=== PATIENT | male | born 1935 | race Caucasian/White ===

== ENCOUNTER 2016-07-06 12:03 | Inpatient (IN) | payer MEDICARE ==
[~2016-07-06] VITALS: Ht 177.8 cm; Wt 81.6 kg
[~2016-07-06 12:03] MED LIST: BAZACRE TD; CIPR-9 PO; CULT10CA4 PO; CYCL1TAB29 PO; DULC10SU3 RECTAL; FERR325T PO; FLEEENE3 RECTAL; LACT10SO PO; LEVEMIR SQ; LINA145C PO; LISI2.5T3 PO; MAGN1TAB14 PO; METO25TA3 PO; MILKSUS PO; NORC5TAB PO; PROS5TAB PO; SITA50 PO; SULF1TAB23 PO; TAMS5CAP PO; VENL75TA PO; ZANT150T2 PO; ZOCO10TA PO
[2016-07-06 12:07] VITALS: BP 139/75; PULSE 120; RESP 20; TEMP 97.6; O2SAT 98
--- NOTE | 2016-07-06 12:30 | PD ---
Physical Exam Time Seen by Provider: 12:25 Narrative 81 year old male presents to ED for evaluation of "not feeling right." reports he has been having decreased appetite and nausea and vomiting. He has been disoriented today and thought he was in [place] this morning. Reports a color change and consistency to his urine and she is concerned because he has already 2 UTIs this year.. Pt has indwelling guevara catheter for 6 months. Pt has pain around his belt line with coughing. No definite fever. Pt has history of diabetes. Data Data Last Documented VS Vital Signs Date Time Temp Pulse Resp B/P Pulse Ox O2 Delivery O2 Flow Rate FiO2 07/06/16 12:07 97.6 120 20 139/75 98 MDM Medical Record Reviewed: Yes Supervised Visit with MARILEE: No Narrative Course 81 year old female presents to the ED for evaluation. Appears without distress. Is tachycardic in triage; afebrile. Pt will be moved to a medical bed when one becomes available. Condition: Stable Tia Jones Jul 06, 2016 12:30
[2016-07-06] MEDS ORDERED: SODIUM CHLORIDE 0.9% FLUSH 10 ML FLUSH IVF PRN (14:00)
[2016-07-06 14:26] VITALS: RESP 20; O2SAT 100
[2016-07-06] MEDS ORDERED: METF1000 PO (14:31)
[2016-07-06] MEDS ORDERED: VENL75TA2 PO (14:31)
[2016-07-06] MEDS ORDERED: GLIM1TAB PO (14:31)
[2016-07-06] MEDS ORDERED: SILV1CRE20 TOPICAL (14:34)
--- NOTE | 2016-07-06 15:44 | PD ---
HPI Chief Complaint: Altered Mental Status Time Seen by Provider: 13:59 Travel History International Travel<30 days: No Contact w/Intl Traveler<30days: No Traveled to known affect area: No History of Present Illness HPI Send 81-year-old man who presents to the emergency department complaining of feeling poorly, with nausea and vomiting. He states he first started feeling bad couple days ago when he began feeling weak, to see. Family reports he was not as energetic self at [facility]. He is been more fatigued. Yesterday he had a little bit of a loose bowel movement and had some decreased appetite. Starting today he began have some nausea and vomiting, difficulty keeping food and fluids down, and some lower abdominal pain. He is a history of a chronic indwelling Anaya catheter for urinary retention. He's had trouble for recurrent UTIs in the past. He uses a wheelchair almost exclusively. He can take couple steps at home but doesn't really walk at all now due to her general debility. They state his urine is been a little bit darker for the past couple days although it cleared up this afternoon. History Past Medical History Narrative Medical NPH, status post ANCHORER shunt BPH Diabetes Urinary retention, chronic and going fully catheter Diabetes Hyperlipidemia Hypertension Social History Alcohol Use: No (NONE SINCE ) Tobacco Use: No (STOPPED . 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) Reported Meds & Prescriptions Reported Meds & Active Scripts Active Reported Silvadene Topical (Silver Sulfadiazine) 1 % Cream 1 Applic TOPICAL DAILY Glimepiride 1 Mg Tab 1 Mg PO DAILY Take with breakfast or first main meal Metformin (Metformin HCl) 1,000 Mg Tab 1,000 Mg PO BID With meals Venlafaxine ER 24 HR (Venlafaxine HCl) 75 Mg Tab 150 Mg PO DAILY Lisinopril 2.5 Mg Tab 2.5 Mg PO DAILY Metoprolol Tartrate 25 Mg Tab 12.5 Mg PO BID Flomax (Tamsulosin HCl) 0.4 Mg Cap 0.4 Mg PO BID Zocor (Simvastatin) 10 Mg Tab 10 Mg PO DAILY Zantac (Ranitidine HCl) 150 Mg Tab 150 Mg PO DAILY Proscar (Finasteride) 5 Mg Tab 5 Mg PO DAILY Do not crush. Review of Systems Except as stated in HPI: all other systems reviewed are Neg Physical Exam Narrative GENERAL: Well-appearing 81-year-old man, no acute distress. SKIN: Focused skin assessment warm/dry. HEAD: Atraumatic. Normocephalic. EYES: Pupils equal and round. No scleral icterus. No injection or drainage. ENT: No nasal bleeding or discharge. Mucous membranes pink and moist. NECK: Trachea midline. No JVD. CARDIOVASCULAR: Heart rate rapid but regular. No murmurs. RESPIRATORY: No accessory muscle use. Clear to auscultation. Breath sounds equal bilaterally. GASTROINTESTINAL: As flat and soft. No significant tenderness. MUSCULOSKELETAL: No obvious deformities. No edema. NEURO: Some lower abdominal discomfort. Data Data Last Documented VS Vital Signs Date Time Temp Pulse Resp B/P Pulse Ox O2 Delivery O2 Flow Rate FiO2 07/06/16 14:26 20 100 Room Air 07/06/16 12:07 97.6 120 139/75 Orders Electrocardiogram (07/06/16 14:00) Complete Blood Count With Diff (07/06/16 14:00) Comprehensive Metabolic Panel (07/06/16 14:00) Troponin I (07/06/16 14:00) Thyroid Stimulating Hormone (07/06/16 14:00) Urinalysis - C+S If Indicated (07/06/16 14:00) Ecg Monitoring (07/06/16 14:00) Iv Access Insert/Monitor (07/06/16 14:00) Oximetry (07/06/16 14:00) Urinary Catheter Insert/Apply (07/06/16 14:00) Sodium Chloride 0.9% Flush (Ns Flush) (07/06/16 14:00) Lactic Acid (07/06/16 14:25) Chest, Single Ap (07/06/16 ) Urine Culture (07/06/16 15:20) Ceftriaxone Inj (Rocephin Inj) (07/06/16 16:30) Blood Culture (07/06/16 16:49) Sodium Chlor 0.9% 1000 Ml Inj (Ns 1000 M (07/06/16 17:00) Ceftriaxone Inj (Rocephin Inj) (07/06/16 17:00) Admit Order (Ed Use Only) (07/06/16 ) Labs Laboratory Tests Test 07/06/16 15:20 White Blood Count 14.0 TH/MM3 Red Blood Count 5.22 MIL/MM3 Hemoglobin 14.0 GM/DL Hematocrit 42.1 % Mean Corpuscular Volume 80.7 FL Mean Corpuscular Hemoglobin 26.9 PG Mean Corpuscular Hemoglobin 33.3 % Concent Red Cell Distribution Width 16.6 % Platelet Count 314 TH/MM3 Mean Platelet Volume 8.3 FL Neutrophils (%) (Auto) 92.1 % Lymphocytes (%) (Auto) 3.6 % Monocytes (%) (Auto) 3.3 % Eosinophils (%) (Auto) 0.6 % Basophils (%) (Auto) 0.4 % Neutrophils # (Auto) 12.9 TH/MM3 Lymphocytes # (Auto) 0.5 TH/MM3 Monocytes # (Auto) 0.5 TH/MM3 Eosinophils # (Auto) 0.1 TH/MM3 Basophils # (Auto) 0.1 TH/MM3 CBC Comment DIFF FINAL Differential Comment Urine Color YELLOW Urine Turbidity CLOUDY Urine pH 5.5 Urine Specific [place] 1.023 Urine Protein 100 mg/dL Urine Glucose (UA) NEG mg/dL Urine Ketones 40 mg/dL Urine Occult Blood MOD Urine Nitrite NEG Urine Bilirubin NEG Urine Urobilinogen LESS THAN 2.0 MG/DL Urine Leukocyte Esterase LARGE Urine RBC 41 /hpf Urine WBC /hpf Urine WBC Clumps MANY Urine Squamous Epithelial 2 /hpf Cells Urine Bacteria MOD /hpf Urine Hyaline Casts 29 /lpf Urine Mucus FEW /lpf Microscopic Urinalysis Comment CATH-CULTURE IND Sodium Level 130 MEQ/L Potassium Level 5.0 MEQ/L Chloride Level 93 MEQ/L Carbon Dioxide Level 23.2 MEQ/L Anion Gap 14 MEQ/L Blood Urea Nitrogen 20 MG/DL Creatinine 1.72 MG/DL Estimat Glomerular Filtration 38 ML/MIN Rate Random Glucose 198 MG/DL Lactic Acid Level 3.9 mmol/L Calcium Level 9.2 MG/DL Total Bilirubin 0.6 MG/DL Aspartate Amino Transf 9 U/L (AST/SGOT) Alanine Aminotransferase 21 U/L (ALT/SGPT) Alkaline Phosphatase 88 U/L Troponin I LESS THAN 0.02 NG/ML Total Protein 8.0 GM/DL Albumin 3.9 GM/DL Thyroid Stimulating Hormone 1.330 uIU/ML 3rd Gen [facility] Medical Decision Making Medical Screen Exam Complete: Yes Emergency Medical Condition: Yes Interpretation(s) My review of EKG: Sinus tachycardia rate of 117, inferior Q waves, probable old MS, no definite evidence of acute ischemia. LABS: CBC remarkable for mild leukocytosis. CMP remarkable for mildly elevated BUN/creatinine Lactate 3.9 UA was significant pyuria Differential Diagnosis UTI, diverticulitis, sepsis, electrolyte abnormality, dehydration, other Narrative Course Medical decision making INITIAL: 81-year-old man who presents to the emergency department complaining of feeling weak and dizzy for couple days, decreased appetite, some lower abdominal discomfort, no change in his urine, suggestive of UTI. Anaya catheter was changed, and urine samples obtained from the sterile specimen. We' ll check blood work, x-ray, reassess. FINAL: 81-year-old man, urosepsis. Lactate little bit elevated. Given IV fluids, antibiotics, fully catheter change. Patient looks well. Diagnosis Primary Impression: Sepsis Additional Impression: UTI Condition: Stable Nick John MD Jul 06, 2016 15:44
[2016-07-06 15:52] LABS: AUTOMATED NEUTROPHIL # 12.9 TH/MM3 (1.8-7.7); BASOPHIL # 0.1 TH/MM3 (0-0.2); BASOPHIL % 0.4 % (0.0-2.0); EOSINOPHIL # 0.1 TH/MM3 (0-0.4); EOSINOPHIL % 0.6 % (0.0-4.0); HEMATOCRIT 42.1 % (39.0-51.0); HEMO FLAGS DIFF FINAL; LYMPH % 3.6 % (9.0-44.0); LYMPHOCYTE # 0.5 TH/MM3 (1.0-4.8); MEAN CELL VOLUME 80.7 FL (80.0-100.0); MEAN CORPUSCULAR HEMOGLOBIN 26.9 PG (27.0-34.0); MEAN CORPUSCULAR HGB CONC 33.3 % (32.0-36.0); MONO % 3.3 % (0.0-8.0); NEUT % 92.1 % (16.0-70.0); PLATELET COUNT 314 TH/MM3 (150-450); RED BLOOD COUNT 5.22 MIL/MM3 (4.50-5.90); RED CELL DISTRIBUTION WIDTH 16.6 % (11.6-17.2)
[2016-07-06 15:56] LABS: BACTERIA, URINE MOD /hpf; BLOOD, URINE MOD (NEG); GLUCOSE,URINE NEG (NEG); HYALINE CAST, URINE 29 /lpf (RARE); KETONE, URINE 40 mg/dL (NEG); MUCUS URINE FEW /lpf (OCC); NITRITE,URINE NEG (NEG); PH, URINE 5.5 (5.0-8.5); SQUAMOUS EPITHELIAL CELL URINE 2 /hpf (0-5); URINE COLOR YELLOW (YELLW/STRAW)
[2016-07-06 15:57] LABS: COMMENT (UR) CATH-CULTURE IND; CULTURE IF INDICATED CATH CULTURE IND
[2016-07-06 16:18] LABS: ANION GAP 14 MEQ/L (5-15); AST (GOT) 9 U/L (15-37); BICARBONATE 23.2 MEQ/L (21.0-32.0); BLOOD UREA NITROGEN 20 MG/DL (7-18); CHLORIDE 93 MEQ/L (98-107); GLOMERULAR FILTRATION RATE 38 ML/MIN (>89); SODIUM (NA) 130 MEQ/L (136-145)
[2016-07-06 16:29] LABS: ALKALINE PHOSPHATASE 88 U/L (45-117); ALT (GPT) 21 U/L (12-78); TOTAL BILIRUBIN ADULT 0.6 MG/DL (0.2-1.0)
[2016-07-06] MEDS ORDERED: cefTRIAXone INJ 1,000 MG in SODIUM CHLORIDE 0.9% INJ 25 ML IV ONE (16:30)
--- NOTE | 2016-07-06 16:41 | RADRPT ---
EXAM DATE/TIME: 07/06/2016 15:43 [place] COMPARISON: No previous studies available for comparison. INDICATIONS : Syncope. MEDICAL HISTORY : frequent urinary tract infections, bladder stone, right inguinal hernia SURGICAL HISTORY : None. ENCOUNTER: Initial ACUITY: 1 day PAIN SCORE: 0/10 LOCATION: Bilateral chest FINDINGS: Number is abnormal appearance to the lower right chest with absence of lung markings in an area that measures 2 cm in width. There is some irregular opacity medial to this area suggesting possible pleu ral calcification. No evidence of apical pneumothorax. The left lung is clear. No focal infiltrate s seen. The heart is normal in size. Mild curvature of the thoracic spine convex to the left. Shun t tubing traverses the anterior right chest. CONCLUSION: Absent lung markings lower lateral right chest and possible adjacent pleural calcification. Recommen d further characterization with noncontrast CT thorax. Karsten Cerda MD on July 06, 2016 at 16:37 Board Certified Radiologist. This report was verified electronically.
[2016-07-06] MEDS ORDERED: TEMAZEPAM 15 MG CAP PO PRN (17:00)
[2016-07-06] MEDS ORDERED: SODIUM CHLORIDE 0.9% FLUSH 10 ML FLUSH IV FLUSH PRN (17:00)
[2016-07-06] MEDS ORDERED: MAGNESIUM HYDROXIDE SUSP 30 ML CUP PO PRN (17:00)
[2016-07-06] MEDS ORDERED: ACETAMINOPHEN 325 MG TAB PO PRN (17:00)
[2016-07-06] MEDS ORDERED: SODIUM CHLOR 0.9% 1000 ML INJ 1,000 ML IV ONE (17:00)
[2016-07-06] MEDS ORDERED: ONDANSETRON HCL 4 MG/2 ML VIAL IVP PRN (17:00)
[2016-07-06] MEDS: SODIUM CHLOR 0.9% 1000 ML INJ 1,000 ML IV SCH (17:00)
[2016-07-06] MEDS ORDERED: cefTRIAXone INJ 1,000 MG in SODIUM CHLORIDE 0.9% INJ 100 ML IV ONE (17:00)
[2016-07-06 17:15] VITALS: O2SAT 99
--- NOTE | 2016-07-06 17:55 | HHI.HP ---
HPI Service [facility] Hospitalists Primary Care Physician Biju Ochoa MD Admission Diagnosis sepsis, UTI Diagnoses: Chief Complaint: Hernia Travel History International Travel<30 Days: No Contact w/Intl Traveler <30 Da: No Traveled to Known Affected Are: No Sepsis Criteria SIRS Criteria (2 or more): Heart rate over 90, WBC > 31489, < 4000 or > 10% bands Sepsis Criteria (SIRS+source): Infect source susp/known Severe Sepsis (+one): Lactate >2 History of Present Illness Pt is an 81 yo male with history inclusive of BPH, Diabetes(type II), urinary retention, chronic (with indwelling catheter), hyperlipidemia, and hypertension. Pt provided varying history about his visit to the ED as he reported undergoing hernia repair surgery this morning and later stating it was"two weeks ago." He is pleasantly confused. Per the ED record, pt came to the hospital with complaints of malaise, nausea and vomiting, weakness (beginning two days ago). Reportedly, family members were present at tiime of ED admission and reported pt having decreased stamina. energy since Easter. as well as loose bowel movements and decreased appetite. Pt personally reported being able to ambulate freely, yet the ED record noted pt uses "A wheelchair almost exclusively." Pt denied bloody urine, fever, body aches/pains, chills or shakes. Pt was asked who cares for his Anaya and he said it was his PCP; pt denied being under the care of a urologist. He is saying is here for hernia. 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 Dr. Bledsoe (urology) was consulted for possible suprapubic catheter placement due to BPH w urinary retention. Past Surgical History Appendectomy ~ 50 years ago HERNIA REPAIR. Indwelling catheter placed 09/20/15 Reported Medications Reported Meds & Active Scripts Active Reported Silvadene Topical (Silver Sulfadiazine) 1 % Cream 1 Applic TOPICAL DAILY Glimepiride 1 Mg Tab 1 Mg PO DAILY Take with breakfast or first main meal Metformin (Metformin HCl) 1,000 Mg Tab 1,000 Mg PO BID With meals Venlafaxine ER 24 HR (Venlafaxine HCl) 75 Mg Tab 150 Mg PO DAILY Lisinopril 2.5 Mg Tab 2.5 Mg PO DAILY Metoprolol Tartrate 25 Mg Tab 12.5 Mg PO BID Flomax (Tamsulosin HCl) 0.4 Mg Cap 0.4 Mg PO BID Zocor (Simvastatin) 10 Mg Tab 10 Mg PO DAILY Zantac (Ranitidine HCl) 150 Mg Tab 150 Mg PO DAILY Proscar (Finasteride) 5 Mg Tab 5 Mg PO DAILY Do not crush. 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 Social History Quit both smoking and drinking years ago (1960s). Used to smoke [place] cigars ( between 20 to 25) daily since the age of 20; pt reported smoking for 35-40 years No illicit drug use. Physical Exam Vital Signs Vital Signs Date Time Temp Pulse Resp B/P Pulse Ox O2 Delivery O2 Flow Rate FiO2 07/06/16 17:15 99 21 07/06/16 14:26 20 100 Room Air 07/06/16 12:07 97.6 120 20 139/75 98 Physical Exam GENERAL: This is a pleasantly confused 81 yo male, well-nourished, well- developed patient, in no apparent distress. SKIN: No rashes, ecchymoses or lesions. Cool and dry. HEAD: Atraumatic. Normocephalic. No temporal or scalp tenderness. EYES: Pupils equal round and reactive. Extraocular motions intact. No scleral icterus. No injection or drainage. ENT: Nose without bleeding, purulent drainage or septal hematoma. Throat without erythema, tonsillar hypertrophy or exudate. Uvula midline. Airway patent. NECK: Trachea midline. No JVD or lymphadenopathy. Supple, nontender, no meningeal signs. CARDIOVASCULAR: Regular rate and rhythm without murmurs, gallops, or rubs. RESPIRATORY: Clear to auscultation. Breath sounds equal bilaterally. No wheezes , rales, or rhonchi. GASTROINTESTINAL: Abdomen soft, non-tender, nondistended. No hepato-splenomegaly , or palpable masses. No guarding. MUSCULOSKELETAL: Extremities without clubbing, cyanosis, or edema. No joint tenderness, effusion, or edema noted. No calf tenderness. Negative Homans sign bilaterally. NEUROLOGICAL: Awake and alert. Cranial nerves II through XII intact. Motor and sensory grossly within normal limits. Five out of 5 muscle strength in all muscle groups. Normal speech. : Anaya in place, (replaced in the ED) Laboratory Laboratory Tests Test 07/06/16 15:20 White Blood Count 14.0 Red Blood Count 5.22 Hemoglobin 14.0 Hematocrit 42.1 Mean Corpuscular Volume 80.7 Mean Corpuscular Hemoglobin 26.9 Mean Corpuscular Hemoglobin 33.3 Concent Red Cell Distribution Width 16.6 Platelet Count 314 Mean Platelet Volume 8.3 Neutrophils (%) (Auto) 92.1 Lymphocytes (%) (Auto) 3.6 Monocytes (%) (Auto) 3.3 Eosinophils (%) (Auto) 0.6 Basophils (%) (Auto) 0.4 Neutrophils # (Auto) 12.9 Lymphocytes # (Auto) 0.5 Monocytes # (Auto) 0.5 Eosinophils # (Auto) 0.1 Basophils # (Auto) 0.1 CBC Comment DIFF FINAL Differential Comment Urine Color YELLOW Urine Turbidity CLOUDY Urine pH 5.5 Urine Specific [place] 1.023 Urine Protein 100 Urine Glucose (UA) NEG Urine Ketones 40 Urine Occult Blood MOD Urine Nitrite NEG Urine Bilirubin NEG Urine Urobilinogen LESS THAN 2.0 Urine Leukocyte Esterase LARGE Urine RBC 41 Urine WBC Urine WBC Clumps MANY Urine Squamous Epithelial 2 Cells Urine Bacteria MOD Urine Hyaline Casts 29 Urine Mucus FEW Microscopic Urinalysis Comment CATH-CULTURE IND Sodium Level 130 Potassium Level 5.0 Chloride Level 93 Carbon Dioxide Level 23.2 Anion Gap 14 Blood Urea Nitrogen 20 Creatinine 1.72 Estimat Glomerular Filtration 38 Rate Random Glucose 198 Lactic Acid Level 3.9 Calcium Level 9.2 Total Bilirubin 0.6 Aspartate Amino Transf 9 (AST/SGOT) Alanine Aminotransferase 21 (ALT/SGPT) Alkaline Phosphatase 88 Troponin I LESS THAN 0.02 Total Protein 8.0 Albumin 3.9 Thyroid Stimulating Hormone 1.330 3rd Gen Date/Time Procedure Status Source Growth 07/06/16 17:05 Aerobic Blood Culture Received Blood Peripheral Pending 07/06/16 17:05 Anaerobic Blood Culture Received Blood Peripheral Pending 07/06/16 15:20 Urine Culture Received Urine Catheterized Urine Pending Result Diagram: 07/06/16 1520 07/06/16 1520 Assessment and Plan Problem List: (1) Sepsis ICD Code: A41.9 Status: Acute Plan: Patient with severe sepsis criteria leukocytosis, tachycardia, Lactic acidosis, source UTI, patient with chronic indwelling catheter 2/2 NPH Trend LA Urine culture pending. of note Ucx previously with Pseudomonal aeruginosa, sensitivities reviewed Pt placed on Levaquin 750 mg q 48 hours due to decreased in renal functioning Received fluids in ED, and will continue with IVF Monitor VS Anaya replaced in the ED (2) Altered mental status, unspecified ICD Code: R41.82 Status: Acute Plan: Likely Metabolic Encephalopathy 2/2 urosepsis. as above (3) Urinary tract infection ICD Code: N39.0 Status: Acute Plan: Levaquin, as above, Awaiting results of culture (4) Diabetes mellitus type 2, uncontrolled ICD Code: E11.65 Status: Chronic Plan: Will hold home anti-glycemics. Will start sliding scale insulin. Accuchecks Monitor BS (5) Acute kidney injury ICD Code: N17.9 Status: Acute Plan: Start IVF Monitor kidney function closely we will do kidney US, bladder US if need. Will consider urology patient has chronic indwelling cath. Monitor urine OP, so far UOP is good and no hematuria Refrain from use of nephrotoxic agents. Repeat labs to evaluate status.Monitor kidney indices, consult nephro if need (6) Elevated lactic acid level ICD Code: R79.89 Status: Acute Plan: Noted upon ED admission. Pt received fluids and antibiotics. Monitor status. (7) Leukocytosis ICD Code: D72.829 Status: Acute Plan: Noted upon admission. 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 In the case of services not specified as inpatient-only, they are appropriately provided as inpatient services in accordance with the 2-midnight benchmark. Estimated LOS (days): 3 days is the estimated time the patient will need to remain in the hospital, assuming treatment plan goals are met and no additional complications. Post-Hospital Plan: Home Viky Sheppard MD Jul 06, 2016 17:55
[2016-07-06] MEDS: LEVOFLOXACIN 750 MG PREMIX INJ 150 ML IV SCH (18:00)
[2016-07-06] MEDS: DOCUSATE SODIUM 100 MG CAP PO SCH (18:00)
[2016-07-06] MEDS: ENOXAPARIN SODIUM 30 MG/0.3 ML SYRINGE SQ SCH (18:00)
[2016-07-06 18:46] VITALS: BP 131/69; PULSE 107; RESP 18; O2SAT 99
[2016-07-06] MEDS ORDERED: GLUCAGON 1 MG/ML VIAL OTHER PRN (19:30)
[2016-07-06] MEDS ORDERED: DEXTROSE 50% IN WATER 50 ML VIAL(D50) IV PUSH PRN (19:30)
[2016-07-06] MEDS ORDERED: PILL SPLITTER OTHER PRN (20:15)
[2016-07-06] MEDS: INSULIN ASPART SUPPLEMENTAL SCALE SQ SCH (20:29)
[2016-07-06 20:31] VITALS: BP 116/63; PULSE 104; RESP 18; O2SAT 99
[2016-07-06] MEDS: SODIUM CHLORIDE 0.9% FLUSH 10 ML FLUSH IV FLUSH SCH (21:00)
[2016-07-06] MEDS: TAMSULOSIN HCL 0.4 MG CAP PO SCH ×2 (21:44→21:45)
[2016-07-06] MEDS: METOPROLOL TARTRATE 25 MG TAB PO SCH ×2 (21:45→21:46)
[2016-07-06 22:28] LABS: LACTIC ACID GHOST NOT REPORTABLE
--- NOTE | 2016-07-06 23:36 | EKG ---
Date Performed: 07/06/2016 Time Performed: 14:19:16 PTAGE: 81 years EKG: SINUS TACHYCARDIA INFERIOR MYOCARDIAL INFARCTION ABNORMAL ECG PREVIOUS TRACING : 01/26/2016 23.38 Compared to the previous tracing, previously normal Sinus r f [facility] DOCTOR: Parag Mcgee Interpretating Date/Time 07/06/2016 23:35:17
[2016-07-07] VITALS (9 sets, daily range): BP systolic 115–130; BP diastolic 59–69; PULSE 83–108; RESP 16–20; TEMP 96.3–98.5; O2SAT 95–100
[2016-07-07] MEDS: SODIUM CHLOR 0.9% 1000 ML INJ 1,000 ML IV SCH ×3 (02:47→21:50)
[2016-07-07] MEDS: DOCUSATE SODIUM 100 MG CAP PO SCH ×2 (06:00→18:11)
[2016-07-07] MEDS: INSULIN ASPART SUPPLEMENTAL SCALE SQ SCH ×4 (07:00→22:01)
[2016-07-07] MEDS: SODIUM CHLORIDE 0.9% FLUSH 10 ML FLUSH IV FLUSH SCH ×2 (09:00→21:57)
[2016-07-07] MEDS: SILVER SULFADIAZINE 1% CR 50 GM JAR TOPICAL SCH (09:00)
[2016-07-07] MEDS: PRAVASTATIN SOD 20 MG TAB PO SCH (09:02)
[2016-07-07] MEDS: FINASTERIDE 5 MG TAB PO SCH (09:02)
[2016-07-07] MEDS: FAMOTIDINE 20 MG TAB PO SCH (09:02)
[2016-07-07] MEDS: VENLAFAXINE HCL XR 75 MG CAP PO SCH (11:46)
--- NOTE | 2016-07-07 13:59 | HHI.PR ---
Subjective Remarks "I am feeling fine." Pt denied pain or discomfort. Anaya with clear urine. He says he had suprapubic pain earlier today but feels much better now. No fever or chills. No n/v/d/c. he is able to eat. Objective Vitals Vital Signs Date Time Temp Pulse Resp B/P Pulse Ox O2 Delivery O2 Flow Rate FiO2 07/07/16 11:50 97.3 101 20 127/60 97 07/07/16 08:15 98 21 07/07/16 07:50 96.3 91 20 115/65 100 07/07/16 04:11 96.6 83 16 129/62 98 07/07/16 02:00 98.1 87 18 121/59 98 07/07/16 00:12 108 18 116/63 97 07/06/16 20:31 104 18 116/63 99 07/06/16 18:46 107 18 131/69 99 Room Air 07/06/16 17:15 99 21 07/06/16 14:26 20 100 Room Air I/O 07/06/16 07/06/16 07/06/16 07/07/16 07/07/16 07/07/16 07:00 15:00 23:00 07:00 15:00 23:00 Output Total 1200 ml Balance -1200 ml Output Urine Total 1200 ml Result Diagram: 07/06/16 1520 07/06/16 1520 Imaging Last Impressions Chest X-Ray 07/06/16 0000 Signed Impressions: Service Date/Time: Wednesday, July 06, 2016 15:43 - CONCLUSION: Absent lung markings lower lateral right chest and possible adjacent pleural calcification. Recommend further characterization with noncontrast CT thorax. Karsten Cerda MD Objective Remarks GENERAL: SKIN: Warm and dry. HEAD: Normocephalic. EYES: No scleral icterus. No injection or drainage. NECK: Supple, trachea midline. No JVD or lymphadenopathy. CARDIOVASCULAR: Regular rate and rhythm without murmurs, gallops, or rubs. RESPIRATORY: Breath sounds equal bilaterally. No accessory muscle use. GASTROINTESTINAL: Abdomen soft, tender lower right quadrant., nondistended. MUSCULOSKELETAL: No cyanosis, or edema. BACK: Nontender without obvious deformity. No CVA tenderness. Procedures None Medications and IVs Current Medications Medications (Trade) Dose Ordered Sig/Robert Route Start Time Stop Time Status Last Admin Levofloxacin/ Dextrose 150 ml @ 100 mls/hr Q48H IV 07/06/16 18:00 07/06/16 18:00 (NS 1000 ml Inj) 1,000 ml @ 100 mls/hr Q10H IV 07/06/16 17:00 07/07/16 09:11 (NS Flush) 2 ml UNSCH PRN IV FLUSH 07/06/16 17:00 (NS Flush) 2 ml BID IV FLUSH 07/06/16 21:00 07/06/16 21:00 (Tylenol) 650 mg Q4H PRN PO 07/06/16 17:00 (Zofran Inj) 4 mg Q6H PRN IVP 07/06/16 17:00 (Colace) 100 mg Q12H PO 07/06/16 18:00 (Milk Of Magnesia Liq) 30 ml Q12H PRN PO 07/06/16 17:00 (Restoril) 15 mg HS PRN PO 07/06/16 17:00 (Lovenox Inj) 30 mg Q24H SQ 07/06/16 18:00 (D50w (Vial) Inj) 25 ml UNSCH PRN IV PUSH 07/06/16 19:30 (Glucagon Inj) 1 mg UNSCH PRN OTHER 07/06/16 19:30 (Proscar) 5 mg DAILY PO 07/07/16 09:00 07/07/16 09:02 (Lopressor) 12.5 mg BID PO 07/06/16 21:00 07/06/16 21:46 (Silvadene 1% Cream (50 Gm)) 1 applic DAILY TOPICAL 07/07/16 09:00 (Flomax) 0.4 mg BID PO 07/06/16 21:00 07/06/16 21:45 (Effexor Xr) 150 mg DAILY PO 07/07/16 09:00 07/07/16 11:46 (Pepcid) 20 mg DAILY PO 07/07/16 09:00 07/07/16 09:02 (Pravachol) 20 mg DAILY PO 07/07/16 09:00 07/07/16 09:02 (Pill Splitter) 1 ea UNSCH PRN OTHER 07/06/16 20:15 Urinary Catheter: Yes Assessment to: Continue Anaya insert reason: Obstruction/Retention Date of Insertion: Jul 06, 2016 Vascular Central Line Catheter: No A/P Problem List: (1) Sepsis ICD Code: A41.9 Status: Acute (2) Altered mental status, unspecified ICD Code: R41.82 Status: Acute (3) Urinary tract infection ICD Code: N39.0 Status: Acute (4) Diabetes mellitus type 2, uncontrolled ICD Code: E11.65 Status: Chronic (5) Acute kidney injury ICD Code: N17.9 Status: Acute (6) Elevated lactic acid level ICD Code: R79.89 Status: Acute (7) Leukocytosis ICD Code: D72.829 Status: Acute Plan: (8) NPH (normal pressure hydrocephalus) ICD Code: G91.2 Status: Chronic Assessment and Plan Sepsis: Patient with severe sepsis criteria leukocytosis, tachycardia, Lactic acidosis, source UTI, patient with chronic indwelling catheter 2/2 NPH Trend LA Urine culture pending. of note Ucx previously with Pseudomonal aeruginosa, sensitivities reviewed Pt placed on Levaquin 750 mg q 48 hours due to decreased in renal functioning Received fluids in ED, and will continue with IVF Monitor VS Anaya replaced in the ED 07/07/16: Levaquin continues. Vitals improving, tachycardia is less and intermittent. LA noted to be WNL at 1.2. CBC to be reordered for AM. Altered Mental Status Likely Metabolic Encephalopathy 2/2 urosepsis. as above 07/07/16: Improved. Urinary Tract Infection Levaquin, as above, Awaiting results of culture 07/07/16 Culture results still pending. IV antibiotics as above. Diabetes mellitus Will hold home anti-glycemics. Will start sliding scale insulin. Accuchecks Monitor BS 07/07/16 Continue to monitor BG. Pt received 1 unit of insulin last evening for elevated BG Acute kidney injury Start IVF Monitor kidney function closely we will do kidney US, bladder US if need. Will consider urology patient has chronic indwelling cath. Monitor urine OP, so far UOP is good and no hematuria Refrain from use of nephrotoxic agents. Repeat labs to evaluate status.Monitor kidney indices, consult nephro if need 07/07/16 BUN and Creatinine evidenced improvement, now within normal limits. GFR has increased. Continue hydration as well as avoid nephrotoxic agents. Check am labs. Elevated Lactic Acid Noted upon ED admission. Pt received fluids and antibiotics. Monitor status. 07/07/16 Lactic acid within normal limits; resolved. Leucocytosis Noted upon admission. Will monitor with daily labs as above patient with urosepsis 07/07/16: CBC ordered for am, check results. Normal Pressure Hydrocephalus Has ELECTRIC TRUCK OPERATOR shunt 07/07/16 Unchanged. Written by Stevan Adamson, acting as scribe for Dr. Sheppard on 07/07/16 at 13:59. This note was transcribed by scribJules AGGARWAL. I, Dr. Viky Sheppard personally performed the history, physical exam, and medical decision making; and confirmed the accuracy of the information in the transcribed note. Authenticated by Dr. Viky Sheppard on 07/07/16 at 13:59. Stevan Adamson Jr. Jul 07, 2016 13:59 Viky Sheppard MD Jul 07, 2016 16:19
[2016-07-07 14:41] LABS: ALKALINE PHOSPHATASE 67 U/L (45-117); ALT (GPT) 16 U/L (12-78); ANION GAP 8 MEQ/L (5-15); AST (GOT) 12 U/L (15-37); BICARBONATE 26.8 MEQ/L (21.0-32.0); BLOOD UREA NITROGEN 12 MG/DL (7-18); CHLORIDE 100 MEQ/L (98-107); GLOMERULAR FILTRATION RATE 54 ML/MIN (>89); POTASSIUM 4.6 MEQ/L (3.5-5.1); SODIUM (NA) 135 MEQ/L (136-145); TOTAL BILIRUBIN ADULT 0.4 MG/DL (0.2-1.0)
[2016-07-07] MEDS: ENOXAPARIN SODIUM 30 MG/0.3 ML SYRINGE SQ SCH (18:12)
[2016-07-07] MEDS: TAMSULOSIN HCL 0.4 MG CAP PO SCH (21:57)
[2016-07-07] MEDS: METOPROLOL TARTRATE 25 MG TAB PO SCH (21:57)
[2016-07-08] VITALS (7 sets, daily range): BP systolic 105–142; BP diastolic 59–74; PULSE 85–98; RESP 16–20; TEMP 97.5–99.3; O2SAT 96–97
[2016-07-08] MEDS: INSULIN ASPART SUPPLEMENTAL SCALE SQ SCH ×4 (06:08→23:00)
[2016-07-08] MEDS: DOCUSATE SODIUM 100 MG CAP PO SCH ×2 (06:08→17:39)
[2016-07-08] MEDS: PRAVASTATIN SOD 20 MG TAB PO SCH (08:33)
[2016-07-08] MEDS: FINASTERIDE 5 MG TAB PO SCH (08:33)
[2016-07-08] MEDS: TAMSULOSIN HCL 0.4 MG CAP PO SCH ×2 (08:33→22:29)
[2016-07-08] MEDS: VENLAFAXINE HCL XR 75 MG CAP PO SCH (08:33)
[2016-07-08] MEDS: SODIUM CHLOR 0.9% 1000 ML INJ 1,000 ML IV SCH ×2 (08:34→17:40)
[2016-07-08] MEDS: FAMOTIDINE 20 MG TAB PO SCH (08:34)
[2016-07-08] MEDS: METOPROLOL TARTRATE 25 MG TAB PO SCH ×2 (08:34→22:29)
[2016-07-08] MEDS: SODIUM CHLORIDE 0.9% FLUSH 10 ML FLUSH IV FLUSH SCH ×2 (08:34→22:37)
[2016-07-08] MEDS: SILVER SULFADIAZINE 1% CR 50 GM JAR TOPICAL SCH (08:39)
--- NOTE | 2016-07-08 08:43 | HHI.FF ---
Face to Face Verification Diagnosis: (1) UTI (2) Impaired mobility and activities of daily living (3) Hydrocephalus (4) Ataxia (5) Diabetes (6) BPH (benign prostatic hyperplasia) (7) Peripheral neuropathy (8) Sepsis (9) Impaired cognition (10) Impaired mobility (11) Urinary retention (12) Hyperlipidemia (13) Hypertension Physical Therapy Order: Evaluate and Treat Home Health Nursing Order: Medical education Signs/symptoms of disease process Medication education-adverse effect Nursing assessment with vital signs I have seen patient Jefferson Sims on 07/08/16. My clinical findings support the need for the requested home health care services because: Ltd mobility - disease progression Patient has SOB I certify that my clinical findings support that this patient is homebound because: Post-op weakness Impaired cognitive ability/safety Unsteady gait/balance Viky Sheppard MD Jul 08, 2016 08:43
[2016-07-08 08:58] LABS: AUTOMATED NEUTROPHIL # 5.6 TH/MM3 (1.8-7.7); BASOPHIL # 0.1 TH/MM3 (0-0.2); BASOPHIL % 0.8 % (0.0-2.0); EOSINOPHIL # 0.3 TH/MM3 (0-0.4); EOSINOPHIL % 3.8 % (0.0-4.0); HEMATOCRIT 34.9 % (39.0-51.0); HEMO FLAGS DIFF FINAL; LYMPH % 17.2 % (9.0-44.0); LYMPHOCYTE # 1.4 TH/MM3 (1.0-4.8); MEAN CORPUSCULAR HEMOGLOBIN 27.3 PG (27.0-34.0); MEAN CORPUSCULAR HGB CONC 34.1 % (32.0-36.0); MONO % 9.8 % (0.0-8.0); NEUT % 68.4 % (16.0-70.0); PLATELET COUNT 256 TH/MM3 (150-450); RED BLOOD COUNT 4.36 MIL/MM3 (4.50-5.90); RED CELL DISTRIBUTION WIDTH 16.6 % (11.6-17.2); WHITE BLOOD COUNT 8.2 TH/MM3 (4.0-11.0)
[2016-07-08 09:15] LABS: BICARBONATE 23.7 MEQ/L (21.0-32.0); POTASSIUM 4.1 MEQ/L (3.5-5.1)
--- NOTE | 2016-07-08 11:33 | HHI.PR ---
Subjective Remarks "I know who you are." Pt declined physical exam and would not answer questions. Returned to see pt later in the day. Pt was alert and oriented, pleasant and cooperative. Pt denied significant pain/discomfort, fever, N/V/D/C, cough, shortness of breath. Objective Vitals Vital Signs Date Time Temp Pulse Resp B/P Pulse Ox O2 Delivery O2 Flow Rate FiO2 07/08/16 08:08 96 21 07/08/16 07:50 99.3 96 20 114/68 96 07/08/16 04:05 97.5 98 16 123/67 96 07/08/16 00:14 98.1 89 16 125/69 96 07/07/16 20:16 98.1 103 16 130/69 95 07/07/16 15:58 97 21 07/07/16 15:50 98.5 101 20 129/61 98 07/07/16 11:50 97.3 101 20 127/60 97 I/O 07/07/16 07/07/16 07/07/16 07/08/16 07/08/16 07/08/16 07:00 15:00 23:00 07:00 15:00 23:00 Intake Total 2380 ml 240 ml 1050 ml Output Total 1200 ml 450 ml 850 ml 450 ml Balance -1200 ml 1930 ml -610 ml 600 ml Intake Oral 900 ml 240 ml 250 ml IV Total 1480 ml 800 ml Output Urine Total 1200 ml 450 ml 850 ml 450 ml # Bowel Movements 1 0 0 Result Diagram: 07/08/16 0710 07/08/16 0710 Other Results Microbiology Date/Time Procedure Status Source Growth 07/06/16 15:20 Urine Culture - Preliminary Resulted Urine Catheterized Urine S. Aureus Mrsa 07/06/16 17:00 Aerobic Blood Culture - Preliminary Resulted Blood Peripheral NO GROWTH IN 2 DAYS 07/06/16 17:00 Anaerobic Blood Culture - Preliminary Resulted Blood Peripheral NO GROWTH IN 2 DAYS 07/06/16 17:05 Aerobic Blood Culture - Preliminary Resulted Blood Peripheral NO GROWTH IN 2 DAYS 07/06/16 17:05 Anaerobic Blood Culture - Preliminary Resulted Blood Peripheral NO GROWTH IN 2 DAYS Microbiology Date/Time Procedure Status Source Growth 07/06/16 15:20 Urine Culture - Preliminary Resulted Urine Catheterized Urine S. Aureus Mrsa 07/06/16 17:00 Aerobic Blood Culture - Preliminary Resulted Blood Peripheral NO GROWTH IN 2 DAYS 07/06/16 17:00 Anaerobic Blood Culture - Preliminary Resulted Blood Peripheral NO GROWTH IN 2 DAYS 07/06/16 17:05 Aerobic Blood Culture - Preliminary Resulted Blood Peripheral NO GROWTH IN 2 DAYS 07/06/16 17:05 Anaerobic Blood Culture - Preliminary Resulted Blood Peripheral NO GROWTH IN 2 DAYS Imaging None Objective Remarks GENERAL: SKIN: Warm and dry. HEAD: Normocephalic. EYES: No scleral icterus. No injection or drainage. NECK: Supple, trachea midline. No JVD or lymphadenopathy. CARDIOVASCULAR: Regular rate and rhythm without murmurs, gallops, or rubs. RESPIRATORY: Breath sounds equal bilaterally. No accessory muscle use. GASTROINTESTINAL: Abdomen soft, non-tender, nondistended. No suprapubic pain elicited upon palpation. MUSCULOSKELETAL: No cyanosis, or edema. BACK: Nontender without obvious deformity. Procedures None Medications and IVs Current Medications Medications (Trade) Dose Ordered Sig/Robert Route Start Time Stop Time Status Last Admin Levofloxacin/ Dextrose 150 ml @ 100 mls/hr Q48H IV 07/06/16 18:00 07/06/16 18:00 (NS 1000 ml Inj) 1,000 ml @ 100 mls/hr Q10H IV 07/06/16 17:00 07/08/16 08:34 (NS Flush) 2 ml UNSCH PRN IV FLUSH 07/06/16 17:00 (NS Flush) 2 ml BID IV FLUSH 07/06/16 21:00 07/08/16 08:34 (Tylenol) 650 mg Q4H PRN PO 07/06/16 17:00 (Zofran Inj) 4 mg Q6H PRN IVP 07/06/16 17:00 (Colace) 100 mg Q12H PO 07/06/16 18:00 07/08/16 06:08 (Milk Of Magnesia Liq) 30 ml Q12H PRN PO 07/06/16 17:00 (Restoril) 15 mg HS PRN PO 07/06/16 17:00 (Lovenox Inj) 30 mg Q24H SQ 07/06/16 18:00 07/07/16 18:12 (D50w (Vial) Inj) 25 ml UNSCH PRN IV PUSH 07/06/16 19:30 (Glucagon Inj) 1 mg UNSCH PRN OTHER 07/06/16 19:30 (Proscar) 5 mg DAILY PO 07/07/16 09:00 07/08/16 08:33 (Lopressor) 12.5 mg BID PO 07/06/16 21:00 07/08/16 08:34 (Silvadene 1% Cream (50 Gm)) 1 applic DAILY TOPICAL 07/07/16 09:00 (Flomax) 0.4 mg BID PO 07/06/16 21:00 07/08/16 08:33 (Effexor Xr) 150 mg DAILY PO 07/07/16 09:00 07/08/16 08:33 (Pepcid) 20 mg DAILY PO 07/07/16 09:00 07/08/16 08:34 (Pravachol) 20 mg DAILY PO 07/07/16 09:00 07/08/16 08:33 (Pill Splitter) 1 ea UNSCH PRN OTHER 07/06/16 20:15 Urinary Catheter: Yes Anaya insert reason: Obstruction/Retention Date of Insertion: Jul 06, 2016 Vascular Central Line Catheter: No A/P Problem List: (1) Sepsis ICD Code: A41.9 Status: Acute (2) Altered mental status, unspecified ICD Code: R41.82 Status: Acute (3) Urinary tract infection ICD Code: N39.0 Status: Acute (4) Diabetes mellitus type 2, uncontrolled ICD Code: E11.65 Status: Chronic (5) Acute kidney injury ICD Code: N17.9 Status: Acute (6) Elevated lactic acid level ICD Code: R79.89 Status: Acute (7) Leukocytosis ICD Code: D72.829 Status: Acute (8) NPH (normal pressure hydrocephalus) ICD Code: G91.2 Status: Chronic Assessment and Plan Sepsis: Patient with severe sepsis criteria leukocytosis, tachycardia, Lactic acidosis, source UTI, patient with chronic indwelling catheter 2/2 NPH Trend LA Urine culture pending. of note Ucx previously with Pseudomonal aeruginosa, sensitivities reviewed Pt placed on Levaquin 750 mg q 48 hours due to decreased in renal functioning Received fluids in ED, and will continue with IVF Monitor VS Anaya replaced in the ED 07/07/16: Levaquin continues. Vitals improving, tachycardia is less and intermittent. LA noted to be WNL at 1.2. CBC to be reordered for AM. 07/08/16 Leukocytosis resolved. Sepsis resolved. 07/08/16 WBC has returned to normal, pt without tachycardia, fever, and lactic acid level had returned to normal limit on 07/07/16. Sepsis resolved. Altered Mental Status Likely Metabolic Encephalopathy 2/2 urosepsis. as above 07/07/16: Improved. 07/08/16 Pt was terse this morning, yet when seen later in day pt was noted to act in consistent manner as seen since upon admission. Urinary Tract Infection Levaquin, as above, Awaiting results of culture 07/07/16 Culture results still pending. IV antibiotics as above. 07/08/16 Per micro report, pt has MRSA in urine. Infectious disease consulted. Diabetes mellitus Will hold home anti-glycemics. Will start sliding scale insulin. Accuchecks Monitor BS 07/07/16 Continue to monitor BG. Pt received 1 unit of insulin last evening for elevated BG 07/08/16 Pt did not receive insulin within the past 24 hours. Acute kidney injury Start IVF Monitor kidney function closely we will do kidney US, bladder US if need. Will consider urology patient has chronic indwelling cath. Monitor urine OP, so far UOP is good and no hematuria Refrain from use of nephrotoxic agents. Repeat labs to evaluate status.Monitor kidney indices, consult nephro if need 07/07/16 BUN and Creatinine evidenced improvement, now within normal limits. GFR has increased. Continue hydration as well as avoid nephrotoxic agents. Check am labs. 07/08/16 BUN and Creatinine are within normal limits while GFR continues to remain low. Continue hydration and avoidance of nephrotoxic agents. check kidney indices. Elevated Lactic Acid Noted upon ED admission. Pt received fluids and antibiotics. Monitor status. 07/07/16 Lactic acid within normal limits; resolved. Leucocytosis Noted upon admission. Will monitor with daily labs as above patient with urosepsis 07/07/16: CBC ordered for am, check results. 07/08/16 Leukocytosis resolved. Normal Pressure Hydrocephalus Has VIDEO LIBRARY ASSISTANT shunt 07/07/16 Unchanged. Written by Stevan Adamson, acting as scribe for Dr. Sheppard on 07/08/16 at 17:07. This note was transcribed by scribJules AGGARWAL. I, Dr. Viky Sheppard personally performed the history, physical exam, and medical decision making; and confirmed the accuracy of the information in the transcribed note. Authenticated by Dr. Viky Sheppard on 07/08/16 at 17:07. Stevan Adamson Jr. Jul 08, 2016 11:33 Viky Sheppard MD Jul 08, 2016 18:49
[2016-07-08] MEDS: ENOXAPARIN SODIUM 30 MG/0.3 ML SYRINGE SQ SCH (17:39)
[2016-07-08] MEDS: LEVOFLOXACIN 750 MG PREMIX INJ 150 ML IV SCH (17:40)
--- NOTE | 2016-07-08 19:00 | PQ ---
Physician Query Response Document PATIENT: EFRAIN TSE : 1935 ADMIT DATE: 07/06/2016 4:55 PM DISCH DATE: RESPONDING PROVIDER #: tobi QUERY TEXT: Cause and Effect Relationship Please clarify in documentation the relationship, if any, between __UTI__and__INDWELLING CATHETER__ Such as: -- Conditions are due to or associated -- Unrelated to each other -- Other, please specify The patient's Clinical Indicators include: 07/06/16 Admission Diagnosis sepsis, UTI PER ED HPI - He is a history of a chronic indwelling Anaya catheter for urinary retention. He's had trouble for recurrent UTIs in the past. PER H Trend LA Urine culture pending. of note Ucx previously with Pseudomonal aeruginosa, sensitivities reviewed Pt placed on Levaquin 750 mg q 48 hours due to decreased in renal functioning Query created by: Rae Lara on 07/07/2016 11:48 AM RESPONSE TEXT: Urosepsis is 2/2 indwelling catheter Electronically signed by: Viky Sheppard MD 07/08/2016 6:56 PM
[2016-07-09] VITALS (7 sets, daily range): BP systolic 103–153; BP diastolic 55–77; PULSE 75–93; RESP 16–24; TEMP 96.2–99.1; O2SAT 96–98
[2016-07-09] MEDS: SODIUM CHLOR 0.9% 1000 ML INJ 1,000 ML IV SCH ×2 (05:00→21:55)
[2016-07-09] MEDS: DOCUSATE SODIUM 100 MG CAP PO SCH ×2 (06:24→18:05)
[2016-07-09] MEDS: INSULIN ASPART SUPPLEMENTAL SCALE SQ SCH ×4 (06:25→21:00)
[2016-07-09 07:48] LABS: AUTOMATED NEUTROPHIL # 10.4 TH/MM3 (1.8-7.7); BASOPHIL # 0.1 TH/MM3 (0-0.2); BASOPHIL % 0.6 % (0.0-2.0); EOSINOPHIL # 0.2 TH/MM3 (0-0.4); EOSINOPHIL % 1.9 % (0.0-4.0); HEMATOCRIT 36.6 % (39.0-51.0); HEMO FLAGS DIFF FINAL; MEAN CELL VOLUME 80.9 FL (80.0-100.0); MEAN CORPUSCULAR HEMOGLOBIN 26.1 PG (27.0-34.0); MEAN CORPUSCULAR HGB CONC 32.3 % (32.0-36.0); MONO % 7.2 % (0.0-8.0); NEUT % 82.3 % (16.0-70.0); PLATELET COUNT 226 TH/MM3 (150-450); RED BLOOD COUNT 4.52 MIL/MM3 (4.50-5.90); RED CELL DISTRIBUTION WIDTH 16.3 % (11.6-17.2); WHITE BLOOD COUNT 12.7 TH/MM3 (4.0-11.0)
[2016-07-09] MEDS ORDERED: Vancomycin Consult Pharmacy 1 EA OTHER SCH (09:00)
[2016-07-09] MEDS ORDERED: VANCOMYCIN INJ 1,000 MG in SODIUM CHLOR 0.9% 250 ML INJ 250 ML IV SCH (09:00)
[2016-07-09] MEDS: SODIUM CHLORIDE 0.9% FLUSH 10 ML FLUSH IV FLUSH SCH ×2 (09:00→21:00)
[2016-07-09] MEDS: SILVER SULFADIAZINE 1% CR 50 GM JAR TOPICAL SCH (09:00)
--- NOTE | 2016-07-09 09:13 | HHI.PR ---
Subjective Remarks "I am sleepy" Pt encountered a bed, statement noted above. Pt denied N/V/D/C, cough, fever. In no acute distress. Objective Vitals Vital Signs Date Time Temp Pulse Resp B/P Pulse Ox O2 Delivery O2 Flow Rate FiO2 07/09/16 06:10 96.9 93 16 153/77 97 07/09/16 00:28 96.2 78 16 133/66 98 07/08/16 21:54 98.4 85 16 124/73 97 07/08/16 15:50 97.7 91 20 105/59 96 07/08/16 11:50 97.5 91 20 142/74 97 I/O 07/08/16 07/08/16 07/08/16 07/09/16 07/09/16 07/09/16 07:00 15:00 23:00 07:00 15:00 23:00 Intake Total 1050 ml 480 ml 1727 ml 800 ml Output Total 450 ml 775 ml Balance 600 ml -295 ml 1727 ml 800 ml Intake Oral 250 ml 480 ml 0 ml IV Total 800 ml 1727 ml 800 ml Output Urine Total 450 ml 775 ml # Bowel Movements 0 0 Result Diagram: 07/09/16 0617 07/09/16 0617 Other Results Microbiology Date/Time Procedure Status Source Growth 07/06/16 15:20 Urine Culture - Preliminary Resulted Urine Catheterized Urine S. Aureus Mrsa 07/06/16 17:00 Aerobic Blood Culture - Preliminary Resulted Blood Peripheral NO GROWTH IN 2 DAYS 07/06/16 17:00 Anaerobic Blood Culture - Preliminary Resulted Blood Peripheral NO GROWTH IN 2 DAYS 07/06/16 17:05 Aerobic Blood Culture - Preliminary Resulted Blood Peripheral NO GROWTH IN 2 DAYS 07/06/16 17:05 Anaerobic Blood Culture - Preliminary Resulted Blood Peripheral NO GROWTH IN 2 DAYS Imaging None in last 24 hours. Objective Remarks GENERAL: SKIN: Warm and dry. HEAD: Normocephalic. EYES: No scleral icterus. No injection or drainage. NECK: Supple, trachea midline. No JVD or lymphadenopathy. CARDIOVASCULAR: Regular rate and rhythm without murmurs, gallops, or rubs. RESPIRATORY: Breath sounds equal bilaterally. No accessory muscle use. GASTROINTESTINAL: Abdomen soft, non-tender, nondistended. No suprapubic pain elicited upon palpation. MUSCULOSKELETAL: No cyanosis, or edema. BACK: Nontender without obvious deformity. Procedures None Medications and IVs Current Medications Medications (Trade) Dose Ordered Sig/Orbert Route Start Time Stop Time Status Last Admin (NS 1000 ml Inj) 1,000 ml @ 100 mls/hr Q10H IV 07/06/16 17:00 07/09/16 05:00 (NS Flush) 2 ml UNSCH PRN IV FLUSH 07/06/16 17:00 (NS Flush) 2 ml BID IV FLUSH 07/06/16 21:00 07/08/16 08:34 (Tylenol) 650 mg Q4H PRN PO 07/06/16 17:00 (Zofran Inj) 4 mg Q6H PRN IVP 07/06/16 17:00 (Colace) 100 mg Q12H PO 07/06/16 18:00 07/09/16 06:24 (Milk Of Magnesia Liq) 30 ml Q12H PRN PO 07/06/16 17:00 (Restoril) 15 mg HS PRN PO 07/06/16 17:00 (Lovenox Inj) 30 mg Q24H SQ 07/06/16 18:00 07/08/16 17:39 (D50w (Vial) Inj) 25 ml UNSCH PRN IV PUSH 07/06/16 19:30 (Glucagon Inj) 1 mg UNSCH PRN OTHER 07/06/16 19:30 (Proscar) 5 mg DAILY PO 07/07/16 09:00 07/08/16 08:33 (Lopressor) 12.5 mg BID PO 07/06/16 21:00 07/08/16 22:29 (Silvadene 1% Cream (50 Gm)) 1 applic DAILY TOPICAL 07/07/16 09:00 (Flomax) 0.4 mg BID PO 07/06/16 21:00 07/08/16 22:29 (Effexor Xr) 150 mg DAILY PO 07/07/16 09:00 07/08/16 08:33 (Pepcid) 20 mg DAILY PO 07/07/16 09:00 07/08/16 08:34 (Pravachol) 20 mg DAILY PO 07/07/16 09:00 07/08/16 08:33 Miscellaneous 1 ea 1 ea UNSCH PRN OTHER 07/06/16 20:15 Pharmacy Profile Note 0 ml @ 0 mls/hr UNSCH OTHER 07/09/16 09:00 (Vancomycin Inj/ NS 250 ml Inj) 250 ml @ 250 mls/hr Q24H IV 07/09/16 09:00 UNV Date of Insertion: Jul 06, 2016 A/P Problem List: (1) Sepsis ICD Code: A41.9 Status: Acute (2) Altered mental status, unspecified ICD Code: R41.82 Status: Acute (3) Urinary tract infection ICD Code: N39.0 Status: Acute (4) Diabetes mellitus type 2, uncontrolled ICD Code: E11.65 Status: Chronic (5) Acute kidney injury ICD Code: N17.9 Status: Acute (6) Elevated lactic acid level ICD Code: R79.89 Status: Acute (7) Leukocytosis ICD Code: D72.829 Status: Acute (8) NPH (normal pressure hydrocephalus) ICD Code: G91.2 Status: Chronic Assessment and Plan Sepsis: Patient with severe sepsis criteria leukocytosis, tachycardia, Lactic acidosis, source UTI, patient with chronic indwelling catheter 2/2 NPH Trend LA Urine culture pending. of note Ucx previously with Pseudomonal aeruginosa, sensitivities reviewed Pt placed on Levaquin 750 mg q 48 hours due to decreased in renal functioning Received fluids in ED, and will continue with IVF Monitor VS Anaya replaced in the ED 07/07/16: Levaquin continues. Vitals improving, tachycardia is less and intermittent. LA noted to be WNL at 1.2. CBC to be reordered for AM. 07/08/16 Leukocytosis resolved. Sepsis resolved. 07/08/16 WBC has returned to normal, pt without tachycardia, fever, and lactic acid level had returned to normal limit on 07/07/16. Sepsis resolved. 07/09/16 WBC noted to have increased with am lab. Otherwise, sepsis in remission. Altered Mental Status Likely Metabolic Encephalopathy 2/2 urosepsis. as above 07/07/16: Improved. 07/08/16 Pt was terse this morning, yet when seen later in day pt was noted to act in consistent manner as seen since upon admission. 07/09/16 Pt was sleeping at time of interview, yet quickly awoke. He was A&O x 3. AMS seemingly resolved. Urinary Tract Infection Levaquin, as above, Awaiting results of culture 07/07/16 Culture results still pending. IV antibiotics as above. 07/08/16 Per micro report, pt has MRSA in urine. Infectious disease consulted. 07/09/16 Still awaiting infectious disease input. Antibiotic was changed by Dr. Sheppard this am as Levaquin was discontinued and Vancomycin was initiated. Pharmacy consulted for dosing parameters. Diabetes mellitus Will hold home anti-glycemics. Will start sliding scale insulin. Accuchecks Monitor BS 07/07/16 Continue to monitor BG. Pt received 1 unit of insulin last evening for elevated BG 07/08/16 Pt did not receive insulin within the past 24 hours. 07/09/16 Pt required 1 unit of insulin this am' otherwise no other insulin needed in the past 24 hours. Acute kidney injury Start IVF Monitor kidney function closely we will do kidney US, bladder US if need. Will consider urology patient has chronic indwelling cath. Monitor urine OP, so far UOP is good and no hematuria Refrain from use of nephrotoxic agents. Repeat labs to evaluate status.Monitor kidney indices, consult nephro if need 07/07/16 BUN and Creatinine evidenced improvement, now within normal limits. GFR has increased. Continue hydration as well as avoid nephrotoxic agents. Check am labs. 07/08/16 BUN and Creatinine are within normal limits while GFR continues to remain low. Continue hydration and avoidance of nephrotoxic agents. check kidney indices. 07/09/16 BUN and creatinine remain in normal range, GFR has improved. Monitor kidney indices. Elevated Lactic Acid Noted upon ED admission. Pt received fluids and antibiotics. Monitor status. 07/07/16 Lactic acid within normal limits; resolved. Leucocytosis Noted upon admission. Will monitor with daily labs as above patient with urosepsis 07/07/16: CBC ordered for am, check results. 07/08/16 Leukocytosis resolved. 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 Normocytic anemia noted on 07/09/16 Monitor with blood draws. Written by Stevan Adamson, acting as scribe for Dr. Sheppard on 07/09/16 at 09:13. This note was transcribed by scribJules [email or web address]. I, Dr. Viky Sheppard personally performed the history, physical exam, and medical decision making; and confirmed the accuracy of the information in the transcribed note. Authenticated by Dr. Viky Sheppard on 07/09/16 at 09:13. Discussed with the patient, nurse, Dr. Graham infectious disease specialist. Poss DC tomorrow if improved. Stevan Adamson Jr. ALESSIA Jul 09, 2016 09:13 Viky Sheppard MD Jul 09, 2016 15:52
[2016-07-09] MEDS ORDERED: VANCOMYCIN INJ 1,250 MG in SODIUM CHLOR 0.9% 250 ML INJ 250 ML IV SCH (10:00)
[2016-07-09] MEDS: FINASTERIDE 5 MG TAB PO SCH (10:18)
[2016-07-09] MEDS: PRAVASTATIN SOD 20 MG TAB PO SCH (10:18)
[2016-07-09] MEDS: FAMOTIDINE 20 MG TAB PO SCH (10:19)
[2016-07-09] MEDS: VENLAFAXINE HCL XR 75 MG CAP PO SCH (10:19)
[2016-07-09] MEDS: TAMSULOSIN HCL 0.4 MG CAP PO SCH ×2 (10:19→21:55)
[2016-07-09] MEDS: METOPROLOL TARTRATE 25 MG TAB PO SCH ×2 (10:19→21:55)
--- NOTE | 2016-07-09 13:11 | PD.ID.CON ---
History of Present Illness Service ID Consult Requested By Reason for Consult Evaluation and Mment of Lactobacillus and MRSA Cath associated UTI. Guevara cath present on admission. Primary Care Physician Biju Ochoa MD Diagnoses: History of Present Illness is an 81 y/o CM with PMHx of BPH, DM2, Urinary retention, chronic indwelling guevara catheter. Per review of records patient has had CREATIVE COORDINATOR shunt infection in 2015 with Strep. Patient also has had Enterococcal and PSAE bacteremia in 2016. Patient was admitted with malaise, nausea and vomiting 2 days RESIDENTIAL COLLECTIONS. Sepsis workup on admission revealed UA with MRSA and Lactobacillus catheter associated UTI. Patient has been on Vanco IV which is the treatment for both organisms. Patient clinically has responded to this regimen and has improved mentation per patience.w hospitalist . Pt denied bloody urine, fever, body aches/pains, chills or shakes. Pt was asked who cares for his Guevara and he said it was his PCP; pt denied being under the care of a urologist. ID is consulted for evaluation and mment of Lactobacillus and MRSA CAUTI. 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 Dr. Bledsoe (urology) was consulted for possible suprapubic catheter placement due to BPH w urinary retention. Past Surgical History Appendectomy ~ 50 years ago Hernia repair. ? CREATIVE COORDINATOR shunt for NPH Indwelling catheter placed 09/20/15 Reported Medications Reported Meds & Active Scripts Active Reported Silvadene Topical (Silver Sulfadiazine) 1 % Cream 1 Applic TOPICAL DAILY Glimepiride 1 Mg Tab 1 Mg PO DAILY Take with breakfast or first main meal Metformin (Metformin HCl) 1,000 Mg Tab 1,000 Mg PO BID With meals Venlafaxine ER 24 HR (Venlafaxine HCl) 75 Mg Tab 150 Mg PO DAILY Lisinopril 2.5 Mg Tab 2.5 Mg PO DAILY Metoprolol Tartrate 25 Mg Tab 12.5 Mg PO BID Flomax (Tamsulosin HCl) 0.4 Mg Cap 0.4 Mg PO BID Zocor (Simvastatin) 10 Mg Tab 10 Mg PO DAILY Zantac (Ranitidine HCl) 150 Mg Tab 150 Mg PO DAILY Proscar (Finasteride) 5 Mg Tab 5 Mg PO DAILY Do not crush. Active Ordered Medications Current Medications Medications (Trade) Dose Ordered Sig/Robert Route Start Time Stop Time Status Last Admin (NS 1000 ml Inj) 1,000 ml @ 100 mls/hr Q10H IV 07/06/16 17:00 07/09/16 05:00 (NS Flush) 2 ml UNSCH PRN IV FLUSH 07/06/16 17:00 (NS Flush) 2 ml BID IV FLUSH 07/06/16 21:00 07/08/16 08:34 (Tylenol) 650 mg Q4H PRN PO 07/06/16 17:00 (Zofran Inj) 4 mg Q6H PRN IVP 07/06/16 17:00 (Colace) 100 mg Q12H PO 07/06/16 18:00 07/09/16 06:24 (Milk Of Magnesia Liq) 30 ml Q12H PRN PO 07/06/16 17:00 (Restoril) 15 mg HS PRN PO 07/06/16 17:00 (Lovenox Inj) 30 mg Q24H SQ 07/06/16 18:00 07/08/16 17:39 (D50w (Vial) Inj) 25 ml UNSCH PRN IV PUSH 07/06/16 19:30 (Glucagon Inj) 1 mg UNSCH PRN OTHER 07/06/16 19:30 (Proscar) 5 mg DAILY PO 07/07/16 09:00 07/09/16 10:18 (Lopressor) 12.5 mg BID PO 07/06/16 21:00 07/09/16 10:19 (Silvadene 1% Cream (50 Gm)) 1 applic DAILY TOPICAL 07/07/16 09:00 (Flomax) 0.4 mg BID PO 07/06/16 21:00 07/09/16 10:19 (Effexor Xr) 150 mg DAILY PO 07/07/16 09:00 07/09/16 10:19 (Pepcid) 20 mg DAILY PO 07/07/16 09:00 07/09/16 10:19 (Pravachol) 20 mg DAILY PO 07/07/16 09:00 07/09/16 10:18 (Pill Splitter) 1 ea UNSCH PRN OTHER 07/06/16 20:15 (Ampicillin) 500 mg Q8HR PO 07/09/16 14:00 (Bactrim 400-80 Mg) 1 tab Q12HR PO 07/09/16 14:00 Family History could not be obtained. Social History Quit both smoking and drinking years ago (1960s). Used to smoke Danish cigars ( between 20 to 25) daily since the age of 20; pt reported smoking for 35-40 years No illicit drug use. Physical Exam Vital Signs Vital Signs Date Time Temp Pulse Resp B/P Pulse Ox O2 Delivery O2 Flow Rate FiO2 07/09/16 08:00 96.9 91 24 120/60 96 07/09/16 06:10 96.9 93 16 153/77 97 07/09/16 00:28 96.2 78 16 133/66 98 07/08/16 21:54 98.4 85 16 124/73 97 07/08/16 15:50 97.7 91 20 105/59 96 Physical Exam GENERAL: This is a well-nourished, well-developed patient, in no apparent distress. SKIN: No rashes, ecchymoses or lesions. Cool and dry. HEAD: Atraumatic. Normocephalic. No temporal or scalp tenderness. EYES: Pupils equal round and reactive. Extraocular motions intact. No scleral icterus. No injection or drainage. ENT: Nose without bleeding, purulent drainage or septal hematoma. Throat without erythema, tonsillar hypertrophy or exudate. Uvula midline. Airway patent. NECK: Trachea midline. Supple, nontender, no meningeal signs. CARDIOVASCULAR: RRR RESPIRATORY: Clear to auscultation. Breath sounds equal bilaterally. No wheezes , rales, or rhonchi. GASTROINTESTINAL: Abdomen soft, non-tender, nondistended. MUSCULOSKELETAL: Extremities without clubbing, cyanosis, or edema. NEUROLOGICAL: Opens eyes, follows commands. Psych: cooperative IV line sites with no e/o infection. Laboratory Laboratory Tests Test 07/09/16 06:17 White Blood Count 12.7 Red Blood Count 4.52 Hemoglobin 11.8 Hematocrit 36.6 Mean Corpuscular Volume 80.9 Mean Corpuscular Hemoglobin 26.1 Mean Corpuscular Hemoglobin 32.3 Concent Red Cell Distribution Width 16.3 Platelet Count 226 Mean Platelet Volume 8.2 Neutrophils (%) (Auto) 82.3 Lymphocytes (%) (Auto) 8.0 Monocytes (%) (Auto) 7.2 Eosinophils (%) (Auto) 1.9 Basophils (%) (Auto) 0.6 Neutrophils # (Auto) 10.4 Lymphocytes # (Auto) 1.0 Monocytes # (Auto) 0.9 Eosinophils # (Auto) 0.2 Basophils # (Auto) 0.1 CBC Comment DIFF FINAL Differential Comment Sodium Level 138 Potassium Level 4.0 Chloride Level 106 Carbon Dioxide Level 25.0 Anion Gap 7 Blood Urea Nitrogen 10 Creatinine 1.06 Estimat Glomerular Filtration 67 Rate Random Glucose 101 Calcium Level 8.4 Date/Time Procedure Status Source Growth 07/06/16 17:05 Aerobic Blood Culture - Preliminary Resulted Blood Peripheral NO GROWTH IN 3 DAYS 07/06/16 17:05 Anaerobic Blood Culture - Preliminary Resulted Blood Peripheral NO GROWTH IN 3 DAYS 07/06/16 15:20 Urine Culture - Final Complete Urine Catheterized Urine S. Aureus Mrsa Lactobacillus Species Result Diagram: 07/09/16 0617 07/09/16 0617 Imaging Last Impressions Chest X-Ray 07/06/16 0000 Signed Impressions: Service Date/Time: Wednesday, July 06, 2016 15:43 - CONCLUSION: Absent lung markings lower lateral right chest and possible adjacent pleural calcification. Recommend further characterization with noncontrast CT thorax. Karsten Cerda MD Assessment and Plan Assessment and Plan Possible sepsis present on admission Cath associated UTI: lactobacillus and MRSA (no bacteremia) Acute metabolic encephalopathy: UTI, NPH. Recs Start Ampicillin Start Bactrim If tolerates above regimen and clinically stable ok to Discharge from ID standpoint with above regimen for 2 weeks. Follow cultures Follow clinically. huan Ramirez above. covering for dc from 07/10/16 to 07/12/16. Caitlin Graham MD Jul 09, 2016 13:11
[2016-07-09] MEDS ORDERED: AMPICILLIN 500 MG CAP PO SCH (14:00)
[2016-07-09] MEDS: SULFAMETHOXAZOLE-TRIMETHOPRIM 400-80 MG TAB PO SCH ×2 (16:06→21:55)
[2016-07-09] MEDS ORDERED: CALCIUM CARBONATE 500 MG CHEWABLE TAB CHEW ONE (17:00)
[2016-07-09] MEDS: ENOXAPARIN SODIUM 30 MG/0.3 ML SYRINGE SQ SCH (18:05)
--- NOTE | 2016-07-09 21:31 | HHI.DS ---
Discharge Summary Admission Date Jul 06, 2016 at 16:55 Discharge Date: Jul 10, 2016 Admitting Diagnosis sepsis, UTI (1) Elevated lactic acid level ICD Code: R79.89 Diagnosis: Principal (2) Sepsis ICD Code: A41.9 Diagnosis: Principal (3) Acute kidney injury ICD Code: N17.9 Diagnosis: Principal (4) Urinary tract infection ICD Code: N39.0 Diagnosis: Principal (5) Altered mental status, unspecified ICD Code: R41.82 Diagnosis: Principal (6) Diabetes mellitus type 2, uncontrolled ICD Code: E11.65 Diagnosis: Secondary (7) Leukocytosis ICD Code: D72.829 Diagnosis: Secondary (8) NPH (normal pressure hydrocephalus) ICD Code: G91.2 Procedures None Brief History - From Admission Pt is an 81 yo male with history inclusive of BPH, Diabetes(type II), urinary retention, chronic (with indwelling catheter), hyperlipidemia, and hypertension. Pt provided varying history about his visit to the ED as he reported undergoing hernia repair surgery this morning and later stating it was"two weeks ago." He is pleasantly confused. Per the ED record, pt came to the hospital with complaints of malaise, nausea and vomiting, weakness (beginning two days ago). Reportedly, family members were present at tiime of ED admission and reported pt having decreased stamina. energy since Easter. as well as loose bowel movements and decreased appetite. Pt personally reported being able to ambulate freely, yet the ED record noted pt uses "A wheelchair almost exclusively." Pt denied bloody urine, fever, body aches/pains, chills or shakes. Pt was asked who cares for his Anaya and he said it was his PCP; pt denied being under the care of a urologist. He is saying is here for hernia. CBC/BMP: 07/09/16 0617 07/09/16 0617 Significant Findings Laboratory Tests Test 07/07/16 07/08/16 07/09/16 12:35 07:10 06:17 Sodium Level 135 MEQ/L (136-145) Estimat Glomerular Filtration 54 ML/MIN (>89) 54 ML/MIN (>89) 67 ML/MIN (>89) Rate Random Glucose 107 MG/DL 117 MG/DL (74-106) (74-106) Aspartate Amino Transf 12 U/L (15-37) (AST/SGOT) Albumin 3.2 GM/DL (3.4-5.0) Red Blood Count 4.36 MIL/MM3 (4.50-5.90) Hemoglobin 11.9 GM/DL 11.8 GM/DL (13.0-17.0) (13.0-17.0) Hematocrit 34.9 % 36.6 % (39.0-51.0) (39.0-51.0) Monocytes (%) (Auto) 9.8 % (0.0-8.0) White Blood Count 12.7 TH/MM3 (4.0-11.0) Mean Corpuscular Hemoglobin 26.1 PG (27.0-34.0) Neutrophils (%) (Auto) 82.3 % (16.0-70.0) Lymphocytes (%) (Auto) 8.0 % (9.0-44.0) Neutrophils # (Auto) 10.4 TH/MM3 (1.8-7.7) Calcium Level 8.4 MG/DL (8.5-10.1) Imaging Last Impressions Chest CT 07/10/16 1147 Signed Impressions: Service Date/Time: Sunday, July 10, 2016 12:35 - CONCLUSION: 1. No pneumothorax. 2. Mild bilateral pleural effusions with suspected accompanying areas of consolidation or atelectasis at the lung bases. There is also some mild suspected postinflammatory change in the left upper lobe and left lingula. 3. Gallstones. 4. 1.5 cm hypodensity in the right lobe of the liver. This is nonspecific. Statistically, it likely represents a cyst or hemangioma. It could be further evaluated with an abdominal MRI examination. This could be performed as an outpatient on a nonemergent basis. 5. Shunt tubing in place. Rick Noriega MD Chest X-Ray 07/06/16 0000 Signed Impressions: Service Date/Time: Wednesday, July 06, 2016 15:43 - CONCLUSION: Absent lung markings lower lateral right chest and possible adjacent pleural calcification. Recommend further characterization with noncontrast CT thorax. Karsten Cerda MD PE at Discharge GENERAL: SKIN: Warm and dry. HEAD: Normocephalic. EYES: No scleral icterus. No injection or drainage. NECK: Supple, trachea midline. No JVD or lymphadenopathy. CARDIOVASCULAR: Regular rate and rhythm without murmurs, gallops, or rubs. RESPIRATORY: Breath sounds equal bilaterally. No accessory muscle use. GASTROINTESTINAL: Abdomen soft, non-tender, nondistended. No suprapubic pain elicited upon palpation. MUSCULOSKELETAL: No cyanosis, or edema. BACK: Nontender without obvious deformity. Hospital Course Sepsis: Urosepsis related to chronic indwelling catheter Patient with severe sepsis criteria leukocytosis, tachycardia, Lactic acidosis, source UTI, patient with chronic indwelling catheter 2/2 NPH Trend LA Urine culture pending. of note Ucx previously with Pseudomonal aeruginosa, sensitivities reviewed Patient with MRSA and lactobacilus in the urine culture. Changed abx to vancomycin IV. Discussed with Dr Graham, will change to PO abx at discharge bactrim and ampicillin at DC Leukocytosis resolved. Sepsis resolved. Altered Mental Status Likely Metabolic Encephalopathy 2/2 urosepsis. as above AMS seemingly resolved. Diabetes mellitus Will hold home anti-glycemics. Will start sliding scale insulin. Accuchecks Monitor BS Acute kidney injury. Kidney indices improved and back to normal Start IVF Monitor kidney function closely we will do kidney US, bladder US if need. Will consider urology patient has chronic indwelling cath. Monitor urine OP, so far UOP is good and no hematuria Refrain from use of nephrotoxic agents. Repeat labs to evaluate status.Monitor kidney indices, consult nephro if need Elevated Lactic Acid Noted upon ED admission. Pt received fluids and antibiotics. Monitor status. Lactic acid within normal limits; resolved. Normal Pressure Hydrocephalus Has SINGER BACK TENDER shunt Unchanged. Normocytic anemia noted on 07/09/16 Monitor with blood draws. Discussed with the patient, nurse. Patient improved. Discharge home with home health. To follow up as OP with PCP and consultants. Pt Condition on Discharge: Stable Discharge Disposition: Disch w/ Home Health Serv Discharge Time: > 30 minutes Discharge Instructions DIET: Follow Instructions for: Heart Healthy Diet, Diabetic Diet Activities you can perform: Regular-No Restrictions Follow up Referrals: PCP Follow-up - 3-5 Days Urology - 1 Week New Medications: Ampicillin (Ampicillin) 500 Mg Cap 500 MG PO Q8HR Infection #42 Ref 0 CAP Sulfamethoxazole-Trimethoprim (Bactrim) 400-80 Mg Tab 1 TAB PO Q12HR uti #28 TAB Continued Medications: Finasteride (Proscar) 5 Mg Tab 5 MG PO DAILY Do not crush. Manage Prostate Problems #30 Ref 0 TAB Glimepiride (Glimepiride) 1 Mg Tab 1 MG PO DAILY Take with breakfast or first main meal Blood Sugar Management #30 Ref 0 TAB Lisinopril (Lisinopril) 2.5 Mg Tab 2.5 MG PO DAILY #30 Ref 0 TAB Metformin (Metformin) 1,000 Mg Tab 1000 MG PO BID With meals Blood Sugar Management #60 Ref 0 TAB Metoprolol Tartrate (Metoprolol Tartrate) 25 Mg Tab 12.5 MG PO BID #60 Ref 0 TAB Ranitidine (Zantac) 150 Mg Tab 150 MG PO DAILY Reduce Stomach Acid #30 Ref 0 TAB Silver Sulfadiazine Topical (Silvadene Topical) 1 % Cream 1 APPLIC TOPICAL DAILY Wound Management #400 Ref 0 GM Simvastatin (Zocor) 10 Mg Tab 10 MG PO DAILY Cholesterol Management #30 Ref 0 TAB Tamsulosin (Flomax) 0.4 Mg Cap 0.4 MG PO BID Manage Prostate Problems #30 Ref 0 CAP Venlafaxine ER 24 HR (Venlafaxine ER 24 HR) 75 Mg Tab 150 MG PO DAILY #30 Ref 0 TAB Viky Sheppard MD Jul 09, 2016 21:30
[2016-07-09] MEDS ORDERED: AMPI500C8 PO (21:33)
[2016-07-09] MEDS ORDERED: BACT400T PO (21:33)
[2016-07-09] MEDS: CALCIUM CARBONATE 500 MG CHEWABLE TAB CHEW SCH (21:54)
[2016-07-10] VITALS: BP 130/69; PULSE 84; RESP 18; TEMP 98.3; O2SAT 98
[2016-07-10 04:00] VITALS: BP 120/59; PULSE 88; RESP 19; TEMP 98.4; O2SAT 97
[2016-07-10] MEDS: DOCUSATE SODIUM 100 MG CAP PO SCH (06:10)
[2016-07-10] MEDS: INSULIN ASPART SUPPLEMENTAL SCALE SQ SCH ×2 (06:13→11:00)
[2016-07-10 07:41] LABS: AUTOMATED NEUTROPHIL # 5.2 TH/MM3 (1.8-7.7); BASOPHIL # 0.1 TH/MM3 (0-0.2); BASOPHIL % 0.9 % (0.0-2.0); EOSINOPHIL # 0.4 TH/MM3 (0-0.4); EOSINOPHIL % 5.3 % (0.0-4.0); HEMATOCRIT 33.8 % (39.0-51.0); HEMO FLAGS DIFF FINAL; LYMPH % 18.1 % (9.0-44.0); LYMPHOCYTE # 1.4 TH/MM3 (1.0-4.8); MEAN CELL VOLUME 80.8 FL (80.0-100.0); MEAN CORPUSCULAR HGB CONC 33.4 % (32.0-36.0); MONO % 8.4 % (0.0-8.0); NEUT % 67.3 % (16.0-70.0); PLATELET COUNT 212 TH/MM3 (150-450); RED BLOOD COUNT 4.19 MIL/MM3 (4.50-5.90); RED CELL DISTRIBUTION WIDTH 16.5 % (11.6-17.2); WHITE BLOOD COUNT 7.7 TH/MM3 (4.0-11.0)
[2016-07-10 08:00] VITALS: BP 106/53; PULSE 74; RESP 16; TEMP 98.5; O2SAT 98
[2016-07-10 08:10] LABS: BICARBONATE 22.3 MEQ/L (21.0-32.0); MAGNESIUM 1.3 MG/DL (1.5-2.5); POTASSIUM 3.7 MEQ/L (3.5-5.1)
[2016-07-10] MEDS: PRAVASTATIN SOD 20 MG TAB PO SCH (08:23)
[2016-07-10] MEDS: SODIUM CHLOR 0.9% 1000 ML INJ 1,000 ML IV SCH (08:23)
[2016-07-10] MEDS: CALCIUM CARBONATE 500 MG CHEWABLE TAB CHEW SCH (08:23)
[2016-07-10] MEDS: FINASTERIDE 5 MG TAB PO SCH (08:24)
[2016-07-10] MEDS: METOPROLOL TARTRATE 25 MG TAB PO SCH (08:24)
[2016-07-10] MEDS: SODIUM CHLORIDE 0.9% FLUSH 10 ML FLUSH IV FLUSH SCH (08:24)
[2016-07-10] MEDS: VENLAFAXINE HCL XR 75 MG CAP PO SCH (08:24)
[2016-07-10] MEDS: SULFAMETHOXAZOLE-TRIMETHOPRIM 400-80 MG TAB PO SCH (08:24)
[2016-07-10] MEDS: FAMOTIDINE 20 MG TAB PO SCH (08:24)
[2016-07-10] MEDS: TAMSULOSIN HCL 0.4 MG CAP PO SCH (08:24)
--- NOTE | 2016-07-10 11:40 | HHI.PR ---
Subjective Remarks In bed, says he was eating in the morning. He is alert and awake, says she wants to go home today as he feels much better. no fever or chills overnight. No suprapubic pain. He is able to ambulate with PT. No n/v/d/c/. Eating well. Objective Vitals Vital Signs Date Time Temp Pulse Resp B/P Pulse Ox O2 Delivery O2 Flow Rate FiO2 07/10/16 08:00 98.5 74 16 106/53 98 07/10/16 04:00 98.4 88 19 120/59 97 07/10/16 00:00 98.3 84 18 130/69 98 07/09/16 20:17 97 07/09/16 20:00 99.1 83 19 103/55 97 07/09/16 16:00 98.3 75 18 111/59 98 07/09/16 12:30 97 I/O 07/09/16 07/09/16 07/09/16 07/10/16 07/10/16 07/10/16 07:00 15:00 23:00 07:00 15:00 23:00 Intake Total 800 ml 1670 ml 480 ml 240 ml Output Total 1700 ml 450 ml 850 ml Balance 800 ml -30 ml 30 ml -610 ml Intake Oral 720 ml 480 ml 240 ml IV Total 800 ml 950 ml Output Urine Total 1700 ml 450 ml 850 ml Result Diagram: 07/10/16 0630 07/10/16 0630 Imaging Last Impressions Chest X-Ray 07/06/16 0000 Signed Impressions: Service Date/Time: Wednesday, July 06, 2016 15:43 - CONCLUSION: Absent lung markings lower lateral right chest and possible adjacent pleural calcification. Recommend further characterization with noncontrast CT thorax. Karsten Cerda MD Objective Remarks GENERAL: Very pleasant 81 yo male, well developed well nourished patient, appear in nad. Hard of hearing. SKIN: Warm and dry. HEAD: Atraumatic. Normocephalic. EYES: Pupils equal and round. No scleral icterus. No injection or drainage. ENT: No nasal bleeding or discharge. Mucous membranes pink and moist. NECK: Trachea midline. No JVD. CARDIOVASCULAR: Regular rate and rhythm. RESPIRATORY: No accessory muscle use. Clear to auscultation. Breath sounds equal bilaterally. GASTROINTESTINAL: Abdomen soft, non-tender, nondistended. Hepatic and splenic margins not palpable. : Anaya in place draining clear urine. MUSCULOSKELETAL: Extremities without clubbing, cyanosis, or edema. No obvious deformities. NEUROLOGICAL: Awake and alert. No obvious cranial nerve deficits. Motor grossly within normal limits. Five out of 5 muscle strength in the arms and legs. Normal speech. PSYCHIATRIC: Appropriate mood and affect; insight and judgment normal. Procedures None Date of Insertion: Jul 06, 2016 A/P Problem List: (1) Sepsis ICD Code: A41.9 Status: Acute (2) Altered mental status, unspecified ICD Code: R41.82 Status: Acute (3) Urinary tract infection ICD Code: N39.0 Status: Acute (4) Diabetes mellitus type 2, uncontrolled ICD Code: E11.65 Status: Chronic (5) Acute kidney injury ICD Code: N17.9 Status: Acute (6) Elevated lactic acid level ICD Code: R79.89 Status: Acute (7) Leukocytosis ICD Code: D72.829 Status: Acute (8) NPH (normal pressure hydrocephalus) ICD Code: G91.2 Status: Chronic Assessment and Plan Sepsis: Urosepsis related to chronic indwelling catheter Patient with severe sepsis criteria leukocytosis, tachycardia, Lactic acidosis, source UTI, patient with chronic indwelling catheter 2/2 NPH Trend LA Urine culture pending. of note Ucx previously with Pseudomonal aeruginosa, sensitivities reviewed Patient with MRSA and lactobacilus in the urine culture. Changed abx to vancomycin IV. Discussed with Dr Graham, will change to PO abx at discharge bactrim and ampicillin at DC Leukocytosis resolved. Sepsis resolved. Altered Mental Status Likely Metabolic Encephalopathy 2/2 urosepsis. as above AMS seemingly resolved. Diabetes mellitus Will hold home anti-glycemics. Will start sliding scale insulin. Accuchecks Monitor BS Acute kidney injury. Kidney indices improved and back to normal Start IVF Monitor kidney function closely we will do kidney US, bladder US if need. Will consider urology patient has chronic indwelling cath. Monitor urine OP, so far UOP is good and no hematuria Refrain from use of nephrotoxic agents. Repeat labs to evaluate status.Monitor kidney indices, consult nephro if need Elevated Lactic Acid Noted upon ED admission. Pt received fluids and antibiotics. Monitor status. Lactic acid within normal limits; resolved. Normal Pressure Hydrocephalus Has FOREIGN LANGUAGE PROFESSOR shunt Unchanged. Normocytic anemia noted on 07/09/16 Monitor with blood draws. Discussed with the patient, nurse. Patient improved. Discharge home with home health. To follow up as OP with PCP and consultants. Viky Sheppard MD Jul 10, 2016 11:40
[2016-07-10 12:00] VITALS: BP 112/55; PULSE 77; RESP 16; TEMP 98; O2SAT 98
--- NOTE | 2016-07-10 14:10 | RADRPT ---
EXAM DATE/TIME: 07/10/2016 12:35 [facility] COMPARISON: CHEST SINGLE AP, July 06, 2016, 15:43. INDICATIONS : Shortness of breath; evaluate for pneumothorax.. RADIATION DOSE: 5.37 CTDIvol (mGy) MEDICAL HISTORY : Chronic obstructive pulmonary disease. Hypertension. SURGICAL HISTORY : None. ENCOUNTER: Initial ACUITY: 4 - 6 days PAIN SCALE: 3/10 LOCATION: Chest TECHNIQUE: Volumetric scanning of the chest was performed. Using automated exposure control and adjustment of the mA and/or kV according to patient size, radiation dose was kept as low as reasonab ly achievable to obtain optimal diagnostic quality images. FINDINGS: There are old chronic rib fracture deformities on the right side. There are mild bilateral pleural e ffusions. There is increased density seen at the lung bases bilaterally being worse on the right lik suze representing some accompanying atelectasis or consolidation. There is some minimal increased den sity at the anterior left upper lobe and posterior left lingula. A pneumothorax is not present. Sig nificant adenopathy is not seen. The patient does have coronary artery calcifications. There are ga llstones present. There is shunt tubing seen over the right chest. There is a nonspecific 1.5 cm hy podensity seen at the posterior segment of the right lobe of the liver. There is chronic degenerative change seen in the thoracic spine. Again noted are the old right rib f ractures. There is a 2.5 cm incidental lipoma seen adjacent to the lateral aspect of the right scapu la. CONCLUSION: 1. No pneumothorax. 2. Mild bilateral pleural effusions with suspected accompanying areas of consolidation or atelectasi s at the lung bases. There is also some mild suspected postinflammatory change in the left upper lob e and left lingula. 3. Gallstones. 4. 1.5 cm hypodensity in the right lobe of the liver. This is nonspecific. Statistically, it likel y represents a cyst or hemangioma. It could be further evaluated with an abdominal MRI examination. This could be performed as an outpatient on a nonemergent basis. 5. Shunt tubing in place. Rick Noriega MD on July 10, 2016 at 13:54 Board Certified Radiologist. This report was verified electronically.
[2016-07-10] MEDS ORDERED: AMOXICILLIN (TRIHYDRATE) 500 MG CAP PO SCH (22:15)
[2016-07-10] MEDS ORDERED: MAGN1TAB14 PO (22:26)
[2016-07-11] MEDS ORDERED: PHARMACY ORDERED LAB ONE (15:45)
== END 2016-07-10 16:17 | disposition home health service (06) | DRG 698 ==
LOC: NEPE 12:03 → NEDA 16:55 → NEDH 22:08 → HOCA 07-07 05:00
PROVIDERS: ADMIT Hospitalist; ATTEND Hospitalist
PROC: 0T2BX0Z Change Drainage Device in Bladder, External Approach (ICD-10-PCS; principal; 2016-07-06)
DX: T83.511A Infection and inflammatory reaction due to indwelling urethral catheter, initial encounter (principal); A41.9 Sepsis, unspecified organism; R65.20 Severe sepsis without septic shock; N17.9 Acute kidney failure, unspecified; G93.41 Metabolic encephalopathy; E87.2 Acidosis; G91.2 (Idiopathic) normal pressure hydrocephalus; E11.65 Type 2 diabetes mellitus with hyperglycemia; N39.0 Urinary tract infection, site not specified; B95.62 Methicillin resistant Staphylococcus aureus infection as the cause of diseases classified elsewhere; B96.89 Other specified bacterial agents as the cause of diseases classified elsewhere; N40.1 Benign prostatic hyperplasia with lower urinary tract symptoms; R33.8 Other retention of urine; J44.9 Chronic obstructive pulmonary disease, unspecified; I10 Essential (primary) hypertension; E78.5 Hyperlipidemia, unspecified; Y84.6 Urinary catheterization as the cause of abnormal reaction of the patient, or of later complication, without mention of misadventure at the time of the procedure; Z79.84 Long term (current) use of oral hypoglycemic drugs; Z87.891 Personal history of nicotine dependence; Z98.2 Presence of cerebrospinal fluid drainage device; Z87.440 Personal history of urinary (tract) infections
CPT/HCPCS: 51702; 71010; 71250; 80048; 80053; 81001; 82948; 83605; 83735; 84443; 84484; 85025; 86403; 87040; 87086; 87147; 87186; 93005; J0696; J1650; J1815; J1956; J3370; J7030; J7050

== ENCOUNTER 2016-07-22 11:11 | Inpatient (IN) | payer MEDICARE ==
[~2016-07-22] VITALS: Ht 177.8 cm; Wt 77.4 kg
[~2016-07-22 11:11] MED LIST changes: +AMPI500C8 PO; +BACT400T PO; -BAZACRE TD; -CIPR-9 PO; -CULT10CA4 PO; -CYCL1TAB29 PO; -DULC10SU3 RECTAL; -FERR325T PO; -FLEEENE3 RECTAL; +GLIM1TAB PO; -LACT10SO PO; -LEVEMIR SQ; -LINA145C PO; +METF1000 PO; -MILKSUS PO; -NORC5TAB PO; +SILV1CRE20 TOPICAL; -SITA50 PO; -SULF1TAB23 PO; -VENL75TA PO; +VENL75TA2 PO
[2016-07-22 11:13] VITALS: BP 164/80; PULSE 99; RESP 18; TEMP 98.2; O2SAT 98
--- NOTE | 2016-07-22 11:19 | PD ---
Physical Exam Date Seen by Provider: July 22, 2016 Time Seen by Provider: 11:14 Narrative Pt is an 81 year old male presenting with cc of weakness, fatigue, hallucinations. symptoms started last night. states he was having spasms. Over the last week he has had multiple episodes of nausea and vomiting. Hx of recurrent UTI's per family. Symptoms are consistent with prior UTI's. Pt saw Dr. Eaton yesterday for catheter replacement. states he slept all day after that appt. Pt states he feels like he is having out of body experiences. and daughter present. VSS, awaiting bed placement. Resent admit for sepsis. Data Data Last Documented VS Vital Signs Date Time Temp Pulse Resp B/P Pulse Ox O2 Delivery O2 Flow Rate FiO2 07/22/16 11:13 98.2 99 18 164/80 98 MDM Supervised Visit with MARILEE: Yris Palacios July 22, 2016 11:19
[2016-07-22] MEDS ORDERED: ONDANSETRON HCL 4 MG/2 ML VIAL ONE (11:29)
[2016-07-22] MEDS ORDERED: SODIUM CHLOR 0.9% 1000 ML INJ 1,000 ML IV SCH (11:41)
[2016-07-22] MEDS ORDERED: ZOFR4TAB3 SL (11:47)
[2016-07-22 12:04] LABS: AUTOMATED NEUTROPHIL # 6.9 TH/MM3 (1.8-7.7); BASOPHIL # 0.1 TH/MM3 (0-0.2); BASOPHIL % 0.9 % (0.0-2.0); EOSINOPHIL # 0.4 TH/MM3 (0-0.4); EOSINOPHIL % 3.3 % (0.0-4.0); HEMATOCRIT 39.9 % (39.0-51.0); LYMPH % 23.3 % (9.0-44.0); LYMPHOCYTE # 2.5 TH/MM3 (1.0-4.8); MEAN CELL VOLUME 81.1 FL (80.0-100.0); MEAN CORPUSCULAR HEMOGLOBIN 27.7 PG (27.0-34.0); MEAN CORPUSCULAR HGB CONC 34.2 % (32.0-36.0); NEUT % 64.5 % (16.0-70.0); PLATELET COUNT 362 TH/MM3 (150-450); RED BLOOD COUNT 4.91 MIL/MM3 (4.50-5.90); RED CELL DISTRIBUTION WIDTH 16.8 % (11.6-17.2); WHITE BLOOD COUNT 10.7 TH/MM3 (4.0-11.0)
--- NOTE | 2016-07-22 12:04 | PD ---
HPI Chief Complaint: Altered Mental Status Time Seen by Provider: 11:58 Travel History International Travel<30 days: No Contact w/Intl Traveler<30days: No Traveled to known affect area: No History of Present Illness HPI 81-year-old male that presents to the ED for evaluation of altered mental status. Per family who is at bedside patient for the past 2 days has been having nausea and vomiting as well as cough and altered mental status. Patient has a history of diabetes, indwelling urinary catheter as well as recent history of sepsis with UTI with admission to weeks ago. Per family he's been doing well except for the past 2 days his been declining rapidly. He is more weak and he is hallucinating. Per family this is not his normal. He is usually very talkative and friendly but now he is talking about people who are no longer alive and even making conversations with this people. Family is concerned. Other than the cough and the nausea and the vomit no other symptoms reported. Patient did have his pelvic catheter replaced yesterday. Patient reports no issues other than the vomiting. He denies any pain in the chest or shortness of breath. 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 History of MRSA especially his last admission where he had a urine positive for MRSA. No other medical problems at this time. No pain. Patient is pleasantly confused. Most of the history is obtained from family. Per family he did fell about 10 days ago but was never seen by providers other than his PCP. PFSH Past Medical History Arthritis: No Asthma: No Autoimmune Disease: No Anxiety: No Depression: Yes Heart Rhythm Problems: No Cancer: No Cardiovascular Problems: Yes High Cholesterol: Yes Chemotherapy: No Chest Pain: No Congestive Heart Failure: No COPD: Yes Cerebrovascular Accident: No Diabetes: Yes Diminished Hearing: No Endocrine: Yes (DM for 4years) Gastrointestinal Disorders: No GERD: Yes Genitourinary: Yes Headaches: Yes Hepatitis: No Hiatal Hernia: No Heparin Induced Thrombocytopen: No Hypertension: Yes Immune Disorder: No Implanted Vascular Access Dvce: No Kidney Stones: Yes Musculoskeletal: Yes (HERNIA-SCROTUM) Neurologic: Yes (MEMORY LOSS, GAIT IMBALANCE, INCONTINENCE) Psychiatric: Yes Reproductive: No Respiratory: Yes Immunizations Current: Yes Migraines: No Radiation Therapy: No Renal Failure: No Seizures: Yes (X1 2002 AFTER FALL AND HIT HEAD) Sickle Cell Disease: No Sleep Apnea: No Thyroid Disease: No Triglycerides - High: Yes Ulcer: No Past Surgical History Abdominal Surgery: Yes AICD: No Appendectomy: Yes Arteriovenous Shunt: No Cardiac Surgery: No Ear Surgery: No Endocrine Surgery: No Eye Surgery: No Genitourinary Surgery: No Gynecologic Surgery: No Insulin Pump: No Joint Replacement: Yes (RIGHT HIP SCREWS ONLY) Neurologic Surgery: Yes (SHUNT, hydrocephalus) Oral Surgery: No Pacemaker: No Thoracic Surgery: No Other Surgery: Yes (RUPTURED APPENDIX 50 YRS) Social History Alcohol Use: No (NONE SINCE ) Tobacco Use: No (STOPPED . 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 Reported Meds & Prescriptions Reported Meds & Active Scripts Active Magnesium 400 Mg Tab 400 Mg PO DAILY Bactrim (Sulfamethoxazole-Trimethoprim) 400-80 Mg Tab 1 Tab PO Q12HR Reported Zofran Odt (Ondansetron Odt) 4 Mg Tab 4 Mg SL Q12HR PRN Silvadene Topical (Silver Sulfadiazine) 1 % Cream 1 Applic TOPICAL DAILY Glimepiride 1 Mg Tab 1 Mg PO DAILY Take with breakfast or first main meal Venlafaxine ER 24 HR (Venlafaxine HCl) 75 Mg Tab 150 Mg PO DAILY Lisinopril 2.5 Mg Tab 2.5 Mg PO DAILY Metoprolol Tartrate 25 Mg Tab 12.5 Mg PO BID Zocor (Simvastatin) 10 Mg Tab 10 Mg PO DAILY Zantac (Ranitidine HCl) 150 Mg Tab 150 Mg PO DAILY Review of Systems Except as stated in HPI: all other systems reviewed are Neg Physical Exam Narrative GENERAL: SKIN: Warm and dry. HEAD: Atraumatic. Normocephalic. EYES: Pupils equal and round 4 mm reactive to light and accommodation. No scleral icterus. No injection or drainage. ENT: No nasal bleeding or discharge. Mucous membranes pink and moist. Tongue is midline. No uvula deviation. NECK: Trachea midline. No JVD. CARDIOVASCULAR: Regular rate and rhythm. No murmurs, S3, S4. RESPIRATORY: No accessory muscle use. Clear to auscultation. Breath sounds equal bilaterally. GASTROINTESTINAL: Abdomen soft, non-tender, nondistended. Hepatic and splenic margins not palpable. MUSCULOSKELETAL: Extremities without clubbing, cyanosis, or edema. No obvious deformities. Full range of motion of the upper and lower extremities bilaterally. 2+ pulses bilaterally. NEUROLOGICAL: Awake and alert and oriented to person and place. No obvious cranial nerve deficits. Motor grossly within normal limits. Five out of 5 muscle strength in the arms and legs. Normal speech. PSYCHIATRIC: Altered mood and affect; insight and judgment limited Data Data Last Documented VS Vital Signs Date Time Temp Pulse Resp B/P Pulse Ox O2 Delivery O2 Flow Rate FiO2 07/22/16 11:13 98.2 99 18 164/80 98 Orders Ondansetron Inj (Zofran Inj) (07/22/16 11:29) Electrocardiogram (07/22/16 11:41) Complete Blood Count With Diff (07/22/16 11:41) Comprehensive Metabolic Panel (07/22/16 11:41) Ckmb (Isoenzyme) Profile (07/22/16 11:41) Troponin I (07/22/16 11:41) Prothrombin Time / Inr (Pt) (07/22/16 11:41) Act Partial Throm Time (Ptt) (07/22/16 11:41) Blood Culture (07/22/16 11:41) Lipase (07/22/16 11:41) Urinalysis - C+S If Indicated (07/22/16 11:41) Magnesium (Mg) (07/22/16 11:41) Thyroid Stimulating Hormone (07/22/16 11:41) Chest, Single Ap (07/22/16 11:41) Ct Brain W/O Iv Contrast(Rout) (07/22/16 11:41) Iv Access Insert/Monitor (07/22/16 11:41) Ecg Monitoring (07/22/16 11:41) Oximetry (07/22/16 11:41) Lactic Acid (07/22/16 11:41) Sodium Chlor 0.9% 1000 Ml Inj (Ns 1000 M (07/22/16 11:41) Urine Culture (07/22/16 11:45) Shunt Series (07/22/16 ) Labs Laboratory Tests Test 07/22/16 11:45 White Blood Count 10.7 TH/MM3 Red Blood Count 4.91 MIL/MM3 Hemoglobin 13.6 GM/DL Hematocrit 39.9 % Mean Corpuscular Volume 81.1 FL Mean Corpuscular Hemoglobin 27.7 PG Mean Corpuscular Hemoglobin 34.2 % Concent Red Cell Distribution Width 16.8 % Platelet Count 362 TH/MM3 Mean Platelet Volume 7.9 FL Neutrophils (%) (Auto) 64.5 % Lymphocytes (%) (Auto) 23.3 % Monocytes (%) (Auto) 8.0 % Eosinophils (%) (Auto) 3.3 % Basophils (%) (Auto) 0.9 % Neutrophils # (Auto) 6.9 TH/MM3 Lymphocytes # (Auto) 2.5 TH/MM3 Monocytes # (Auto) 0.9 TH/MM3 Eosinophils # (Auto) 0.4 TH/MM3 Basophils # (Auto) 0.1 TH/MM3 CBC Comment DIFF FINAL Differential Comment Prothrombin Time 11.2 SEC Prothromb Time International 1.0 RATIO Ratio Activated Partial 29.7 SEC Thromboplast Time Urine Color YELLOW Urine Turbidity CLEAR Urine pH 7.0 Urine Specific [place] 1.010 Urine Protein 30 mg/dL Urine Glucose (UA) NEG mg/dL Urine Ketones NEG mg/dL Urine Occult Blood NEG Urine Nitrite NEG Urine Bilirubin NEG Urine Urobilinogen LESS THAN 2.0 MG/DL Urine Leukocyte Esterase LARGE Urine RBC 2 /hpf Urine WBC 62 /hpf Urine WBC Clumps FEW Urine Squamous Epithelial <1 /hpf Cells Urine Bacteria RARE /hpf Urine Yeast with Hyphae OCC Urine Yeast (Budding) MOD Microscopic Urinalysis Comment CULTURE INDICATED Sodium Level 132 MEQ/L Potassium Level 4.7 MEQ/L Chloride Level 97 MEQ/L Carbon Dioxide Level 26.7 MEQ/L Anion Gap 8 MEQ/L Blood Urea Nitrogen 12 MG/DL Creatinine 1.33 MG/DL Estimat Glomerular Filtration 52 ML/MIN Rate Random Glucose 118 MG/DL Lactic Acid Level 1.5 mmol/L Calcium Level 9.4 MG/DL Magnesium Level 1.9 MG/DL Total Bilirubin 0.5 MG/DL Aspartate Amino Transf 12 U/L (AST/SGOT) Alanine Aminotransferase 25 U/L (ALT/SGPT) Alkaline Phosphatase 89 U/L Total Creatine Kinase 52 U/L Troponin I LESS THAN 0.02 NG/ML Total Protein 7.6 GM/DL Albumin 3.9 GM/DL Lipase 70 U/L Thyroid Stimulating Hormone 0.905 uIU/ML 3rd Gen [facility] Medical Decision Making Medical Screen Exam Complete: Yes Emergency Medical Condition: Yes Medical Record Reviewed: Yes Interpretation(s) CBC & BMP Diagram 07/22/16 11:45 lactic acid WNL LFTS and lipase WNL Troponin and CK-MB within normal limits. Last Impressions Chest X-Ray 07/22/16 1141 Signed Impressions: Service Date/Time: July 11:57 - CONCLUSION: No acute disease. Karsten Bledsoe Jr., MD CT head negative for acute disease UA shows UTi and possible yeast. Differential Diagnosis Altered mental status versus UTI versus sepsis versus pneumonia versus nausea versus hydrocephalus versus head injury versus chest injury Narrative Course 81-year-old that presents to the ED for evaluation of altered mental status. Patient was properly examined and was found to have signs and symptoms consistent with appears to be altered mental status with possible sepsis. Patient has been vomiting and having cough. Concern for pneumonia. Patient apparently hallucinating of old people that are no longer alive and this is concerning for the family. Patient does have a history of dementia in the early stages. At this time I recommend labs and imaging. Patient is agreement with this. Labs and imaging showed UTI was otherwise unremarkable. Case was discussed in my attending who agrees with plan. He recommends admission for IV antibiotics. Case discussed with Dr. Barrera who agrees to admission. Procedures EKG Prior to Arrival: No Diagnosis Primary Impression: Altered mental status, unspecified Additional Impression: UTI Admitting Information Admitting Physician Requests: Ziggy Dickinson July 22, 2016 12:04
[2016-07-22 12:08] LABS: HEMO FLAGS DIFF FINAL
[2016-07-22 12:14] LABS: BACTERIA, URINE RARE /hpf; BLOOD, URINE NEG (NEG); COMMENT (UR) CULTURE INDICATED; CULTURE IF INDICATED CULTURE INDICATED; GLUCOSE,URINE NEG (NEG); KETONE, URINE NEG (NEG); NITRITE,URINE NEG (NEG); SQUAMOUS EPITHELIAL CELL URINE <1 /hpf (0-5); URINE COLOR YELLOW (YELLW/STRAW)
[2016-07-22 12:16] LABS: APTT (PATIENT) 29.7 SEC (24.3-30.1); PROTHROMBIN TIME - PATIENT 11.2 SEC (9.8-11.6)
[2016-07-22 12:18] LABS: ALT (GPT) 25 U/L (12-78); ANION GAP 8 MEQ/L (5-15); AST (GOT) 12 U/L (15-37); BICARBONATE 26.7 MEQ/L (21.0-32.0); BLOOD UREA NITROGEN 12 MG/DL (7-18); CHLORIDE 97 MEQ/L (98-107); GLOMERULAR FILTRATION RATE 52 ML/MIN (>89); MAGNESIUM 1.9 MG/DL (1.5-2.5); POTASSIUM 4.7 MEQ/L (3.5-5.1); SODIUM (NA) 132 MEQ/L (136-145)
[2016-07-22 12:27] LABS: ALKALINE PHOSPHATASE 89 U/L (45-117); TOTAL BILIRUBIN ADULT 0.5 MG/DL (0.2-1.0)
[2016-07-22 12:38] LABS: CREATINE KINASE 52 U/L (39-308)
--- NOTE | 2016-07-22 13:20 | RADRPT ---
EXAM DATE/TIME: 07/22/2016 11:57 [facility] COMPARISON: CT THORAX W/O CONTRAST, July 10, 2016, 12:35. CHEST SINGLE AP, July 06, 2016, 15:43. INDICATIONS : Chest pain MEDICAL HISTORY : Hypertension. Cardiovascular disease. frequent urinary tract infections, bladder stone, right in guinal hernia SURGICAL HISTORY : ENCOUNTER: Initial ACUITY: 1 day PAIN SCORE: 2/10 LOCATION: Bilateral chest FINDINGS: The appearance of the chest is stable. Linear areas of parenchymal density are seen involving both vignesh ng bases. No acute infiltrate or effusion. Heart normal in size. Scoliotic curvature. Catheter overli es the right chest likely related to a ventriculoperitoneal shunt. Old right-sided rib fractures are noted. CONCLUSION: No acute disease. Karsten Bledsoe Jr., MD on July 22, 2016 at 13:17 Board Certified Radiologist. This report was verified electronically.
[2016-07-22 13:30] VITALS: BP 185/81; PULSE 110; RESP 18; O2SAT 97
--- NOTE | 2016-07-22 13:47 | RADRPT ---
EXAM DATE/TIME: 07/22/2016 13:02 [facility] COMPARISON: CT THORAX W/O CONTRAST, July 10, 2016, 12:35. EXTERNAL COMPARISON : [facility], INDICATIONS : Altered mental status with hallucinations. RADIATION DOSE: 56.37 CTDIvol (mGy) MEDICAL HISTORY : Seizures. Hypertension. Diabetes mellitus type 2.Hydorocephalus. SURGICAL HISTORY : Shunt. ENCOUNTER: Initial ACUITY: 1 day PAIN SCALE: 1/10 LOCATION: Bilateral cranial TECHNIQUE: Multiple contiguous axial images were obtained of the head. Using automated exposure control and adj ustment of the mA and/or kV according to patient size, radiation dose was kept as low as reasonably a chievable to obtain optimal diagnostic quality images. FINDINGS: The ventricles are normal in size and configuration. There is no acute intracranial hemorrhage. There is a ventriculostomy in place which enters from the right frontal approach. The tip is in good posit ion. No mass lesion is seen. The appearance of the posterior fossa is unremarkable. The osseous structures of the skull are intact. CONCLUSION: 1. No acute intercranial abnormality. 2. The ventriculostomy shunt is in good position. Sudhakar Marrufo MD on July 22, 2016 at 13:42 Board Certified Radiologist. This report was verified electronically.
[2016-07-22] MEDS ORDERED: VANCOMYCIN INJ 1,000 MG in SODIUM CHLOR 0.9% 250 ML INJ 250 ML IV ONE (14:15)
--- NOTE | 2016-07-22 14:20 | RADRPT ---
EXAM DATE/TIME: 07/22/2016 13:38 [facility] COMPARISON: No previous studies available for comparison. INDICATIONS : Evaluate shunt , fell MEDICAL HISTORY : Hypertension. Diabetes mellitus type II. seizures, hydorocephalus SURGICAL HISTORY : shunt ENCOUNTER: Initial ACUITY: 1 day PAIN SCORE: 0/10 LOCATION: Shunt FINDINGS: Radiograph of the skull, neck, chest and abdomen performed to evaluate shunt patency. The shunt cath eter is seen entering the right frontal region with its tip in the region of the body of the right la teral ventricle. The catheter is continuous in its course terminating in the upper pelvic cavity, slightly left of mid line. No catheter disruption is identified. The visualized heart, lungs and abdominal structures are intact. Shunt valve setting is 120 mm of water. CONCLUSION: Shunt appears intact. Valve set to 120 mm of water. Rick Kwok MD on July 22, 2016 at 14:15 Board Certified Radiologist. This report was verified electronically.
[2016-07-22] MEDS: SODIUM CHLOR 0.9% 1000 ML INJ 1,000 ML IV SCH (15:43)
[2016-07-22] MEDS ORDERED: ACETAMINOPHEN 325 MG TAB PO PRN (15:45)
[2016-07-22] MEDS ORDERED: NALOXONE HCL 0.4 MG/ML AMP IV PRN (15:45)
[2016-07-22] MEDS ORDERED: ONDANSETRON HCL 4 MG/2 ML VIAL IVP PRN (15:45)
[2016-07-22] MEDS ORDERED: Vancomycin Consult Pharmacy 1 EA OTHER SCH (15:45)
[2016-07-22] MEDS ORDERED: GLUCAGON 1 MG/ML VIAL OTHER PRN ×2 (15:45→16:00)
[2016-07-22] MEDS ORDERED: SODIUM CHLORIDE 0.9% FLUSH 10 ML FLUSH IV FLUSH PRN (15:45)
[2016-07-22] MEDS ORDERED: DEXTROSE 50% IN WATER 50 ML VIAL(D50) IV PUSH PRN ×2 (15:45→16:00)
--- NOTE | 2016-07-22 15:50 | HHI.HP ---
HPI Service [facility] Primary Care Physician Biju Ochoa MD Admission Diagnosis altered mental status, UTI Diagnoses: Chief Complaint: CONFUSION, WEAKNESS, NAUSEA AND VOMITING (Joan Martinez) Travel History International Travel<30 Days: No Contact w/Intl Traveler <30 Da: No Traveled to Known Affected Are: No (Joan Martinez) History of Present Illness This is a pleasant 81-year-old elderly male with significant past medical history of hypertension, hyperlipidemia, NPH has BP shunt, chronic indwelling catheter, recurrent UTIs, prior admissions for sepsis. Patient presented to the emergency room for evaluation of altered mental status. Patient is a poor historian, information is obtained from the patient's family were at bedside. Patient was recently admitted from 07/06 to 07/09/2016 for sepsis and UTI, cultures were positive for MRSA in the urine. ID was consulted, pt. improved and was discharged on appropriate antibiotic therapy. Pt. has had guevara catheter for approximately 6 months and follows up with Dr. Garrett. According to the , he did relatively well for a few days however in the last week they have noted that the patient has become more weaker, has been more confused and has not been eating well. Daughter endorses he's had frequent episodes of nausea and vomiting. There is no reported fever, no chills. He did have a fall a couple days ago and has some bruising to the left flank. He did go see his primary care physician and was instructed to continue on antibiotics, he stopped Flomax and finasteride. His Guevara catheter was changed yesterday. Was also reported some coughing, no sputum. In the emergency room, patient was evaluated. Urinalysis was noted with large amount of leukocyte esterase and bacteria however improved from previous admission. CBC was unremarkable. BMP remarkable for dehydration, creatinine 1.33. Mild hyponatremia, sodium 132. Lactic acid was normal, 1.5. CT of the head did not show any acute findings. Shunt study did not reveal any abnormalities. Valves set 220 mm of water. Chest x-ray did not reveal any acute findings. Patient was hemodynamically stable, afebrile. Blood cultures were obtained, empiric antibiotics started. Pt. is pleasantly confused, family at [facility]. He has no complaints at this time. Pt. admitted for further evaluation and treatment. 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 Dr. Bledsoe (urology) was consulted for possible suprapubic catheter placement due to BPH w urinary retention. Admitted to [facility] 07/06 to 07/09 for Sepsis, found with MRSA in urine Past Surgical History Appendectomy ~ 50 years ago HERNIA REPAIR. Indwelling catheter placed 09/20/15 Reported Medications Reported Meds & Active Scripts Active Magnesium 400 Mg Tab 400 Mg PO DAILY Bactrim (Sulfamethoxazole-Trimethoprim) 400-80 Mg Tab 1 Tab PO Q12HR Reported Zofran Odt (Ondansetron Odt) 4 Mg Tab 4 Mg SL Q12HR PRN Silvadene Topical (Silver Sulfadiazine) 1 % Cream 1 Applic TOPICAL DAILY Glimepiride 1 Mg Tab 1 Mg PO DAILY Take with breakfast or first main meal Venlafaxine ER 24 HR (Venlafaxine HCl) 75 Mg Tab 150 Mg PO DAILY Lisinopril 2.5 Mg Tab 2.5 Mg PO DAILY Metoprolol Tartrate 25 Mg Tab 12.5 Mg PO BID Zocor (Simvastatin) 10 Mg Tab 10 Mg PO DAILY Zantac (Ranitidine HCl) 150 Mg Tab 150 Mg PO DAILY (Joan Martinez) Allergies: Coded Allergies: *MDRO Multi-Drug Resistant Organism (Verified Adverse Reaction, Unknown, ) 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 Social History Quit both smoking and drinking years ago (1960s). Used to smoke English cigars ( between 20 to 25) daily since the age of 20; pt reported smoking for 35-40 years No illicit drug use. (Joan Martinez) Physical Exam Vital Signs Vital Signs Date Time Temp Pulse Resp B/P Pulse Ox O2 Delivery O2 Flow Rate FiO2 07/22/16 11:13 98.2 99 18 164/80 98 Physical Exam GENERAL: This is a well-nourished, well-developed patient, in no apparent distress. SKIN: Cool and dry, bruising over left anterior chest wall. HEAD: Atraumatic. Normocephalic. No temporal or scalp tenderness. EYES: Pupils equal round and reactive. Extraocular motions intact. No scleral icterus. No injection or drainage. ENT: Nose without bleeding, purulent drainage or septal hematoma. Throat without erythema, tonsillar hypertrophy or exudate. Uvula midline. Airway patent. NECK: Trachea midline. No JVD or lymphadenopathy. Supple, nontender, no meningeal signs. CARDIOVASCULAR: Regular rate and rhythm without murmurs, gallops, or rubs. RESPIRATORY: Clear to auscultation. Breath sounds equal bilaterally. No wheezes , rales, or rhonchi. GASTROINTESTINAL: Abdomen soft, non-tender, nondistended. No hepato-splenomegaly , or palpable masses. No guarding. : guevara with cloudy urine MUSCULOSKELETAL: Extremities without clubbing, cyanosis. Trace pedal edema, pulses pulses 2+. No joint tenderness, effusion, or edema noted. No calf tenderness. Negative Homans sign bilaterally. NEUROLOGICAL: Awake, oriented to self, place and others. Following commands. Difficult to understand, he has no dentures. Laboratory Laboratory Tests Test 07/22/16 11:45 White Blood Count 10.7 Red Blood Count 4.91 Hemoglobin 13.6 Hematocrit 39.9 Mean Corpuscular Volume 81.1 Mean Corpuscular Hemoglobin 27.7 Mean Corpuscular Hemoglobin 34.2 Concent Red Cell Distribution Width 16.8 Platelet Count 362 Mean Platelet Volume 7.9 Neutrophils (%) (Auto) 64.5 Lymphocytes (%) (Auto) 23.3 Monocytes (%) (Auto) 8.0 Eosinophils (%) (Auto) 3.3 Basophils (%) (Auto) 0.9 Neutrophils # (Auto) 6.9 Lymphocytes # (Auto) 2.5 Monocytes # (Auto) 0.9 Eosinophils # (Auto) 0.4 Basophils # (Auto) 0.1 CBC Comment DIFF FINAL Differential Comment Prothrombin Time 11.2 Prothromb Time International 1.0 Ratio Activated Partial 29.7 Thromboplast Time Urine Color YELLOW Urine Turbidity CLEAR Urine pH 7.0 Urine Specific [place] 1.010 Urine Protein 30 Urine Glucose (UA) NEG Urine Ketones NEG Urine Occult Blood NEG Urine Nitrite NEG Urine Bilirubin NEG Urine Urobilinogen LESS THAN 2.0 Urine Leukocyte Esterase LARGE Urine RBC 2 Urine WBC 62 Urine WBC Clumps FEW Urine Squamous Epithelial <1 Cells Urine Bacteria RARE Urine Yeast with Hyphae OCC Urine Yeast (Budding) MOD Microscopic Urinalysis Comment CULTURE INDICATED Sodium Level 132 Potassium Level 4.7 Chloride Level 97 Carbon Dioxide Level 26.7 Anion Gap 8 Blood Urea Nitrogen 12 Creatinine 1.33 Estimat Glomerular Filtration 52 Rate Random Glucose 118 Lactic Acid Level 1.5 Calcium Level 9.4 Magnesium Level 1.9 Total Bilirubin 0.5 Aspartate Amino Transf 12 (AST/SGOT) Alanine Aminotransferase 25 (ALT/SGPT) Alkaline Phosphatase 89 Total Creatine Kinase 52 Troponin I LESS THAN 0.02 Total Protein 7.6 Albumin 3.9 Lipase 70 Thyroid Stimulating Hormone 0.905 3rd Gen Date/Time Procedure Status Source Growth 07/22/16 11:50 Aerobic Blood Culture Received Blood Peripheral Pending 07/22/16 11:50 Anaerobic Blood Culture Received Blood Peripheral Pending 07/22/16 11:45 Urine Culture Received Urine Clean Catch Pending (Joan Martinez [facility]) Result Diagram: 07/22/16 1145 07/22/16 1145 Imaging Last Impressions Head CT 07/22/16 1141 Signed Impressions: Service Date/Time: July 13:02 - CONCLUSION: 1. No acute intercranial abnormality. 2. The ventriculostomy shunt is in good position. Sudhakar Marrufo MD Chest X-Ray 07/22/16 1141 Signed Impressions: Service Date/Time: July 11:57 - CONCLUSION: No acute disease. Karsten Bledsoe Jr., MD Shunt Study (Imaging) 07/22/16 0000 Signed Impressions: Service Date/Time: July 13:38 - CONCLUSION: Shunt appears intact. Valve set to 120 mm of water. Rick Kwok MD (Joan Martinez [facility]) Assessment and Plan Problem List: (1) Altered mental status, unspecified (2) UTI (3) BPH (benign prostatic hyperplasia) (4) NPH (normal pressure hydrocephalus) (5) Diabetes (6) Frequent falls (7) Hyperlipidemia (8) Hypertension (9) Acute kidney injury (10) Failure of outpatient treatment (11) Chronic indwelling Guevara catheter Assessment and Plan Admit to Dr. Barrera 81-year-old elderly male who was recently admitted with sepsis and recurrent UTI , presents to the emergency room with altered mental status. Has chronic indwelling catheter. Urinalysis noted positive for possible infection, cultures pending. During prior admission, positive for MRSA in urine. Patient also with history of NPH has ROSIN BARREL FILLER shunt. Recurrent UTI, has chronic indwelling catheter, Guevara was changed on 07/21/2016. Failure of outpatient therapy. -Continue with vancomycin, pharmacy to dose. Follow cultures closely. Consult infectious disease for antibiotic management Altered mental status, possibly secondary to infections, also has ROSIN BARREL FILLER shunt possibly metabolic area Continue with neuro checks Consult neurosurgery for evaluation of ROSIN BARREL FILLER shunt -We will check ammonia, cortisol, sedimentation rate, C-reactive protein EEG Shunt study was completed, appears intact, valve set at 120 mm of water. -Physical therapy for evaluation and treat Acute renal injury, possibly secondary to dehydration Continue with cautious hydration Follow BMP Recent fall, bruising to left lateral rib. -Physical therapy consulted Encouraged to deep breath and cough, incentive spirometer ordered Type 2 diabetes Accu-Cheks before meals and at bedtime with insulin therapy Hypertension, stable -Resume home medications Hyperlipidemia Continue with home medications Home medications reviewed, initiated as indicated SCDs for DVT prophylaxis Physical therapy consulted for evaluation and treatment Plan of care has been discussed with patient and family, RN, attending. Further management of the patient will be dependent on the hospital course Patient requires inpatient admission for anticipated stay greater than 2 days for evaluation of recurrent UTI, failure of outpatient therapy. Patient is at risk for complications due to advanced age and comorbidities that can potentially lead to sepsis, possibly . Patient requires admission for IV antibiotics, evaluation by infectious disease, lab workup. Anticipated discharge back to home with home health care when stable This patient was seen by myself and Dr. Barrera, this H&P is written on his behalf (Joan Martinez) Assessment and Plan pt is seen & Examined d/w PT's & step daughter at bedside d/w Joan rojo w above see Orders am labs will f/u (Terell Barrera MD) Problem Qualifiers (1) BPH (benign prostatic hyperplasia): (2) Diabetes: (3) Hyperlipidemia: Qualified Code: E78.5 - Hyperlipidemia, unspecified hyperlipidemia type (4) Hypertension: Qualified Code: I10 - Essential hypertension Joan Martinez July 22, 2016 15:50 Terell Barrera MD July 22, 2016 19:37
[2016-07-22] MEDS ORDERED: INSULIN ASPART SUPPLEMENTAL SCALE SQ SCH (16:00)
[2016-07-22] MEDS: INSULIN ASPART SUPPLEMENTAL SCALE SQ SCH ×2 (17:10→21:00)
[2016-07-22 17:41] VITALS: BP 155/81; PULSE 112; RESP 20; O2SAT 96
[2016-07-22 17:45] VITALS: O2SAT 96
--- NOTE | 2016-07-22 19:14 | PD.CONS ---
History of Present Illness Service Neurosurgery Consult Requested By Medicine service Reason for Consult Altered mental status. History of NPH Primary Care Physician Biju Ochoa MD Diagnoses: History of Present Illness 81-year-old male brought to the emergency room today with altered mental status. No recent fall. He has a previous emergency room evaluation for altered mental status in 2016. Also recent admission in June 2016 for UTI with sepsis. Patient was discharged on antibiotic therapy. Hepresents with complaints of approximately 1 week of generalized increased lethargy, mild confusion, decreased appetite and nausea and vomiting. Positive nonproductive cough. No definite fevers or chills. No diarrhea. No complaint of significant headache, dizziness, vertigo. Review of Systems Constitutional: COMPLAINS OF: Fatigue, DENIES: Fever Eyes: DENIES: Blurred vision, Diplopia Ears, nose, mouth, throat: DENIES: Tinnitus, Vertigo Respiratory: COMPLAINS OF: Cough, DENIES: Shortness of breath Cardiovascular: DENIES: Chest pain Gastrointestinal: COMPLAINS OF: Nausea, DENIES: Abdominal pain Genitourinary: COMPLAINS OF: Urinary incontinence Musculoskeletal: COMPLAINS OF: Muscle aches, DENIES: Joint pain Neurologic: COMPLAINS OF: Poor Balance Past Family Social History Allergies: Coded Allergies: *MDRO Multi-Drug Resistant Organism (Verified Adverse Reaction, Unknown, ) 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 Past Medical History No significant cardiac disease Diabetes Hypertension Hyperlipidemia COPD Recent UTI BPH-indwelling Anaya for the past few months Past Surgical History Appendectomy Reported Medications Reported Meds & Active Scripts Active Magnesium 400 Mg Tab 400 Mg PO DAILY Bactrim (Sulfamethoxazole-Trimethoprim) 400-80 Mg Tab 1 Tab PO Q12HR Reported Zofran Odt (Ondansetron Odt) 4 Mg Tab 4 Mg SL Q12HR PRN Silvadene Topical (Silver Sulfadiazine) 1 % Cream 1 Applic TOPICAL DAILY Glimepiride 1 Mg Tab 1 Mg PO DAILY Take with breakfast or first main meal Venlafaxine ER 24 HR (Venlafaxine HCl) 75 Mg Tab 150 Mg PO DAILY Lisinopril 2.5 Mg Tab 2.5 Mg PO DAILY Metoprolol Tartrate 25 Mg Tab 12.5 Mg PO BID Zocor (Simvastatin) 10 Mg Tab 10 Mg PO DAILY Zantac (Ranitidine HCl) 150 Mg Tab 150 Mg PO DAILY Family History His father had seizures Social History Smoked cigars many years ago. No significant alcohol use Physical Exam Vital Signs Vital Signs Date Time Temp Pulse Resp B/P Pulse Ox O2 Delivery O2 Flow Rate FiO2 07/22/16 17:45 96 07/22/16 17:41 112 20 155/81 96 07/22/16 13:30 110 18 185/81 97 07/22/16 11:13 98.2 99 18 164/80 98 Physical Exam GENERAL: This is a well-nourished, well-developed patient, in no apparent distress. SKIN: No rashes, ecchymoses or lesions. Cool and dry. HEAD: Atraumatic. Normocephalic. No temporal or scalp tenderness. EYES: Pupils equal round and reactive. Extraocular motions intact. No scleral icterus. No injection or drainage. ENT: Nose without bleeding, purulent drainage or septal hematoma. Throat without erythema, tonsillar hypertrophy or exudate. Uvula midline. Airway patent. NECK: Trachea midline. No JVD or lymphadenopathy. Supple, nontender, no meningeal signs. CARDIOVASCULAR: Regular rate and rhythm without murmurs, gallops, or rubs. RESPIRATORY: Clear to auscultation. Breath sounds equal bilaterally. No wheezes , rales, or rhonchi. GASTROINTESTINAL: Abdomen soft, non-tender, nondistended. No hepato-splenomegaly , or palpable masses. No guarding. MUSCULOSKELETAL: Extremities without clubbing, cyanosis, or edema. No joint tenderness, effusion, or edema noted. No calf tenderness. Negative Homans sign bilaterally. NEUROLOGICAL: Awake and alert. Cranial nerves II through XII intact. Motor and sensory grossly within normal limits. Five out of 5 muscle strength in all muscle groups. Normal speech. Laboratory Laboratory Tests Test 07/22/16 11:45 White Blood Count 10.7 Red Blood Count 4.91 Hemoglobin 13.6 Hematocrit 39.9 Mean Corpuscular Volume 81.1 Mean Corpuscular Hemoglobin 27.7 Mean Corpuscular Hemoglobin 34.2 Concent Red Cell Distribution Width 16.8 Platelet Count 362 Mean Platelet Volume 7.9 Neutrophils (%) (Auto) 64.5 Lymphocytes (%) (Auto) 23.3 Monocytes (%) (Auto) 8.0 Eosinophils (%) (Auto) 3.3 Basophils (%) (Auto) 0.9 Neutrophils # (Auto) 6.9 Lymphocytes # (Auto) 2.5 Monocytes # (Auto) 0.9 Eosinophils # (Auto) 0.4 Basophils # (Auto) 0.1 CBC Comment DIFF FINAL Differential Comment Prothrombin Time 11.2 Prothromb Time International 1.0 Ratio Activated Partial 29.7 Thromboplast Time Urine Color YELLOW Urine Turbidity CLEAR Urine pH 7.0 Urine Specific [place] 1.010 Urine Protein 30 Urine Glucose (UA) NEG Urine Ketones NEG Urine Occult Blood NEG Urine Nitrite NEG Urine Bilirubin NEG Urine Urobilinogen LESS THAN 2.0 Urine Leukocyte Esterase LARGE Urine RBC 2 Urine WBC 62 Urine WBC Clumps FEW Urine Squamous Epithelial <1 Cells Urine Bacteria RARE Urine Yeast with Hyphae OCC Urine Yeast (Budding) MOD Microscopic Urinalysis Comment CULTURE INDICATED Sodium Level 132 Potassium Level 4.7 Chloride Level 97 Carbon Dioxide Level 26.7 Anion Gap 8 Blood Urea Nitrogen 12 Creatinine 1.33 Estimat Glomerular Filtration 52 Rate Random Glucose 118 Lactic Acid Level 1.5 Calcium Level 9.4 Magnesium Level 1.9 Total Bilirubin 0.5 Aspartate Amino Transf 12 (AST/SGOT) Alanine Aminotransferase 25 (ALT/SGPT) Alkaline Phosphatase 89 Total Creatine Kinase 52 Troponin I LESS THAN 0.02 C-Reactive Protein LESS THAN 0.29 Total Protein 7.6 Albumin 3.9 Lipase 70 Thyroid Stimulating Hormone 0.905 3rd Gen Date/Time Procedure Status Source Growth 07/22/16 11:50 Aerobic Blood Culture Received Blood Peripheral Pending 07/22/16 11:50 Anaerobic Blood Culture Received Blood Peripheral Pending 07/22/16 11:45 Urine Culture Received Urine Clean Catch Pending Result Diagram: 07/22/16 1145 07/22/16 1145 Imaging 07/22/16 CT scan head images reviewed by the undersigned. Shunt catheters in good position. Relatively mild to moderate ventriculomegaly not significantly changed from prior CT scan of 01/26/[address] 07/22/16 1141 Signed Impressions: Service Date/Time: July 13:02 - CONCLUSION: 1. No acute intercranial abnormality. 2. The ventriculostomy shunt is in good position. Sudhakar Marrufo MD Chest X-Ray 07/22/16 1141 Signed Impressions: Service Date/Time: July 11:57 - CONCLUSION: No acute disease. Karsten Bledsoe Jr., MD Shunt Study (Imaging) 07/22/16 0000 Signed Impressions: Service Date/Time: July 13:38 - CONCLUSION: Shunt appears intact. Valve set to 120 mm of water. Rick Kwok MD Assessment and Plan Assessment and Plan Impression: 1. Altered mental status. 2. UTI 3. History of NPH. Status post ventriculoperitoneal shunt. No definite evidence of shunt malfunction or infection at present. Recommendations: Eyes discussed with patient and family. Recommended initial treatment of UTI, correction hyponatremia. Continue to follow his neurologic function and if no improvement with initial treatment of medical issues, consider ventriculoperitoneal shunt. Darrel Shah MD July 22, 2016 19:14
[2016-07-22 20:00] VITALS: BP 116/63; PULSE 74; RESP 21; TEMP 97.5; O2SAT 97
[2016-07-22] MEDS: METOPROLOL TARTRATE 25 MG TAB PO SCH (21:41)
[2016-07-22] MEDS: SODIUM CHLORIDE 0.9% FLUSH 10 ML FLUSH IV FLUSH SCH (21:42)
[2016-07-23] VITALS (7 sets, daily range): BP systolic 98–142; BP diastolic 55–70; PULSE 66–88; RESP 16–23; TEMP 97.4–98.7; O2SAT 93–97
[2016-07-23] MEDS: SODIUM CHLOR 0.9% 1000 ML INJ 1,000 ML IV SCH ×3 (01:18→21:11)
[2016-07-23] MEDS: INSULIN ASPART SUPPLEMENTAL SCALE SQ SCH ×4 (06:01→21:00)
--- NOTE | 2016-07-23 07:53 | HHI.PR ---
Subjective Remarks Awake, oriented to self thinks he's at a [facility] in [place] Asking why he is in the hospital Denies any pain No fever overnight Objective Objective Results - Vital Signs Date Time Temp Pulse Resp B/P Pulse Ox O2 Delivery O2 Flow Rate FiO2 07/23/16 07:41 97.4 88 18 142/70 95 07/23/16 04:25 97.8 82 20 114/56 96 07/23/16 00:12 98.4 76 20 118/66 97 07/22/16 20:00 97.5 74 21 116/63 97 07/22/16 17:45 96 07/22/16 17:41 112 20 155/81 96 07/22/16 13:30 110 18 185/81 97 07/22/16 11:13 98.2 99 18 164/80 98 I/O 07/22/16 07/22/16 07/22/16 07/23/16 07/23/16 07/23/16 07:00 15:00 23:00 07:00 15:00 23:00 Intake Total 240 ml Output Total 1050 ml Balance 240 ml -1050 ml Intake Oral 240 ml Output Urine Total 1050 ml Result Diagram: 07/22/16 1145 07/22/16 1145 Imaging Last Impressions Head CT 07/22/16 1141 Signed Impressions: Service Date/Time: July 13:02 - CONCLUSION: 1. No acute intercranial abnormality. 2. The ventriculostomy shunt is in good position. Sudhakar Marrufo MD Chest X-Ray 07/22/16 1141 Signed Impressions: Service Date/Time: July 11:57 - CONCLUSION: No acute disease. Karsten Bledsoe Jr., MD Shunt Study (Imaging) 07/22/16 0000 Signed Impressions: Service Date/Time: July 13:38 - CONCLUSION: Shunt appears intact. Valve set to 120 mm of water. Rick Kwok MD Other Results Laboratory Tests Test 07/22/16 07/22/16 11:45 21:52 White Blood Count 10.7 Red Blood Count 4.91 Hemoglobin 13.6 Hematocrit 39.9 Mean Corpuscular Volume 81.1 Mean Corpuscular Hemoglobin 27.7 Mean Corpuscular Hemoglobin 34.2 Concent Red Cell Distribution Width 16.8 Platelet Count 362 Mean Platelet Volume 7.9 Neutrophils (%) (Auto) 64.5 Lymphocytes (%) (Auto) 23.3 Monocytes (%) (Auto) 8.0 Eosinophils (%) (Auto) 3.3 Basophils (%) (Auto) 0.9 Neutrophils # (Auto) 6.9 Lymphocytes # (Auto) 2.5 Monocytes # (Auto) 0.9 Eosinophils # (Auto) 0.4 Basophils # (Auto) 0.1 CBC Comment DIFF FINAL Differential Comment Erythrocyte Sedimentation Rate 6 Prothrombin Time 11.2 Prothromb Time International 1.0 Ratio Activated Partial 29.7 Thromboplast Time Urine Color YELLOW Urine Turbidity CLEAR Urine pH 7.0 Urine Specific [place] [employer] 1.010 Urine Protein 30 Urine Glucose (UA) NEG Urine Ketones NEG Urine Occult Blood NEG Urine Nitrite NEG Urine Bilirubin NEG Urine Urobilinogen LESS THAN 2.0 Urine Leukocyte Esterase LARGE Urine RBC 2 Urine WBC 62 Urine WBC Clumps FEW Urine Squamous Epithelial <1 Cells Urine Bacteria RARE Urine Yeast with Hyphae OCC Urine Yeast (Budding) MOD Microscopic Urinalysis Comment CULTURE INDICATED Sodium Level 132 Potassium Level 4.7 Chloride Level 97 Carbon Dioxide Level 26.7 Anion Gap 8 Blood Urea Nitrogen 12 Creatinine 1.33 Estimat Glomerular Filtration 52 Rate Random Glucose 118 Lactic Acid Level 1.5 Calcium Level 9.4 Magnesium Level 1.9 Total Bilirubin 0.5 Aspartate Amino Transf 12 (AST/SGOT) Alanine Aminotransferase 25 (ALT/SGPT) Alkaline Phosphatase 89 Total Creatine Kinase 52 Troponin I LESS THAN 0.02 C-Reactive Protein LESS THAN 0.29 Total Protein 7.6 Albumin 3.9 Lipase 70 Thyroid Stimulating Hormone 0.905 3rd Gen Ammonia 22 Random Cortisol 8.7 Date/Time Procedure Status Source Growth 07/22/16 11:50 Aerobic Blood Culture Received Blood Peripheral Pending 07/22/16 11:50 Anaerobic Blood Culture Received Blood Peripheral Pending 07/22/16 11:45 Urine Culture Received Urine Clean Catch Pending ROS General: Other (12 point review of systems difficult to complete, patient is oriented) Physical Exam Physical Exam GENERAL: This is a well-nourished, well-developed patient, in no apparent distress. SKIN: Cool and dry, bruising over left anterior chest wall. HEAD: Atraumatic. Normocephalic. No temporal or scalp tenderness. EYES: Pupils equal round and reactive. Extraocular motions intact. No scleral icterus. No injection or drainage. ENT: Nose without bleeding, purulent drainage or septal hematoma. Throat without erythema, tonsillar hypertrophy or exudate. Uvula midline. Airway patent. NECK: Trachea midline. No JVD or lymphadenopathy. Supple, nontender, no meningeal signs. CARDIOVASCULAR: Regular rate and rhythm without murmurs, gallops, or rubs. RESPIRATORY: Clear to auscultation. Breath sounds equal bilaterally. No wheezes , rales, or rhonchi. GASTROINTESTINAL: Abdomen soft, non-tender, nondistended. No hepato-splenomegaly , or palpable masses. No guarding. : guevara with cloudy urine MUSCULOSKELETAL: Extremities without clubbing, cyanosis. No pedal edema, pulses pulses 2+. No joint tenderness, effusion, or edema noted. No calf tenderness. Negative Homans sign bilaterally. NEUROLOGICAL: Awake, oriented to self, place, speech clear, following simple commands. Disoriented. Urinary Catheter: Yes Assessment to: Continue Guevara insert reason: Obstruction/Retention Vascular Central Line Catheter: No A/P Diagnosis: (1) Altered mental status, unspecified (2) UTI (3) BPH (benign prostatic hyperplasia) (4) NPH (normal pressure hydrocephalus) (5) Diabetes (6) Frequent falls (7) Hyperlipidemia (8) Hypertension (9) Acute kidney injury (10) Failure of outpatient treatment (11) Chronic indwelling Guevara catheter Assessment and Plan 81-year-old elderly male who was recently admitted with sepsis and recurrent UTI , presents to the emergency room with altered mental status. Has chronic indwelling catheter. Urinalysis noted positive for possible infection, cultures pending. During prior admission, positive for MRSA in urine. 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 Recurrent UTI, has chronic indwelling catheter, Guevara was changed on 07/21/2016. Failure of outpatient therapy. + MRSA previous culture -Continue with vancomycin, pharmacy to dose. Follow cultures closely-negative so far. Consult infectious disease for antibiotic management-pending Altered mental status, possibly secondary to infections, also has STONE DRILLER HELPER shunt possibly metabolic area Continue with neuro checks Consult neurosurgery -Dr. Shah evaluated, recommends to continue with UTI treatment. - ammonia, cortisol, sedimentation rate, C-reactive protein normal EEG pending Shunt study was completed, appears intact, valve set at 120 mm of water. -Physical therapy for evaluation and treat -Patient remains confused, oriented to self only, following commands. Acute renal injury, possibly secondary to dehydration Continue with cautious hydration -Labs pending Recent fall, bruising to left lateral rib. -Physical therapy consulted Encouraged to deep breath and cough, incentive spirometer Type 2 diabetes Accu-Cheks before meals and at bedtime with insulin therapy Hypertension, stable -Resume home medications Hyperlipidemia Continue with home medications SCDs for DVT prophylaxis Physical therapy consulted for evaluation and treatment Follow-up on lab results Continue with above treatment D/W RN D/W pt D/W Dr. Barrera This patient was seen by myself and Dr. Barrera, this note is written on his behalf Problem Qualifiers (1) BPH (benign prostatic hyperplasia): (2) Diabetes: (3) Hyperlipidemia: Qualified Code: E78.5 - Hyperlipidemia, unspecified hyperlipidemia type (4) Hypertension: Qualified Code: I10 - Essential hypertension Joan Martinez July 23, 2016 07:53
[2016-07-23] MEDS: VENLAFAXINE HCL XR 75 MG CAP PO SCH (09:58)
[2016-07-23] MEDS: VANCOMYCIN INJ 1,250 MG in SODIUM CHLOR 0.9% 250 ML INJ 250 ML IV SCH (09:58)
[2016-07-23] MEDS: MAGNESIUM OXIDE 400 MG TAB PO SCH (09:59)
[2016-07-23] MEDS: SILVER SULFADIAZINE 1% CR 50 GM JAR TOPICAL SCH (09:59)
[2016-07-23] MEDS: LISINOPRIL 5 MG TAB PO SCH (09:59)
[2016-07-23] MEDS: PRAVASTATIN SOD 20 MG TAB PO SCH (09:59)
[2016-07-23] MEDS: METOPROLOL TARTRATE 25 MG TAB PO SCH ×2 (09:59→21:00)
[2016-07-23] MEDS: SODIUM CHLORIDE 0.9% FLUSH 10 ML FLUSH IV FLUSH SCH ×2 (10:00→21:00)
[2016-07-23 12:39] LABS: AUTOMATED NEUTROPHIL # 6.7 TH/MM3 (1.8-7.7); BASOPHIL # 0.1 TH/MM3 (0-0.2); BASOPHIL % 0.8 % (0.0-2.0); EOSINOPHIL # 0.2 TH/MM3 (0-0.4); EOSINOPHIL % 2.4 % (0.0-4.0); HEMATOCRIT 37.7 % (39.0-51.0); HEMO FLAGS DIFF FINAL; LYMPH % 17.2 % (9.0-44.0); LYMPHOCYTE # 1.6 TH/MM3 (1.0-4.8); MEAN CELL VOLUME 80.9 FL (80.0-100.0); MEAN CORPUSCULAR HEMOGLOBIN 27.1 PG (27.0-34.0); MEAN CORPUSCULAR HGB CONC 33.4 % (32.0-36.0); MONO % 7.9 % (0.0-8.0); NEUT % 71.7 % (16.0-70.0); PLATELET COUNT 331 TH/MM3 (150-450); RED BLOOD COUNT 4.66 MIL/MM3 (4.50-5.90); RED CELL DISTRIBUTION WIDTH 16.4 % (11.6-17.2); WHITE BLOOD COUNT 9.3 TH/MM3 (4.0-11.0)
[2016-07-23 13:16] LABS: BICARBONATE 25.2 MEQ/L (21.0-32.0); POTASSIUM 4.4 MEQ/L (3.5-5.1)
--- NOTE | 2016-07-23 13:55 | MB ---
cc: FRANNY METZ MD DATE OF CONSULTATION: 07/23/[address] Barrera REASON FOR CONSULTATION Recurrent complicated urinary tract infection. HISTORY OF PRESENT ILLNESS This is an 81-year-old white male who was brought to the emergency department by his family because of altered mental status. The patient reportedly was having nausea and vomiting and cough and his mental status was altered. The patient is awake and alert but very confused, although he is making a great attempt at communication. He converses and talks about his past profession but does not focus on the current illness. 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 He also has a history of urinary tract infection due to methicillin-resistant staph aureus in June. He received intravenous vancomycin and was discharged on p.o. Bactrim on 07/10/2016. The patient is afebrile and his white blood cell count is normal. Urinalysis was obtained and it showed 62 white cells, moderate yeast and rare bacteria. The urine culture preliminary has yeast. Blood culture has no growth in one day. The patient has a Anaya catheter which has turbid urine which is vel-colored. CT scan of the head showed no acute intracranial abnormality. The ventriculostomy shunt is noted to be in good position. PAST MEDICAL HISTORY 1. Hypertension. 2. Diabetes mellitus, type 2. 3. Benign prostatic hypertrophy. 4. Kidney stone. 5. History of seizure disorder. 6. Hyperlipidemia. 7. COPD. 8. Appendectomy. 9. Hernia repair. 10.The patient has a history of Anaya catheter which was changed on 07/21/2016. ALLERGIES No known drug allergies. MEDICATIONS 1. Vancomycin. 2. Effexor. 3. Prinivil. 4. Magnesium oxide. 5. Pravachol. SOCIAL HISTORY No tobacco. No alcohol. No illicit drugs. Reported history of smoking in the form of cigars up until the 1960s. FAMILY HISTORY Noncontributory. REVIEW OF SYSTEMS Difficult to obtain because of the patient's confused state. He denies chills, nausea, vomiting, shortness of breath, back pain. PHYSICAL EXAMINATION GENERAL: This is a well-developed male who is in no acute distress but is confused. He is oriented to self. VITAL SIGNS: Temperature 97.9, BP 123/59, respirations 18, heart rate 76. HEENT: Head is atraumatic. Extraocular movements grossly intact. Pupils reactive to light. No icterus. Oropharynx no visible lesions. NECK: Supple without adenopathy. LUNGS: Clear to auscultation. HEART: Regular rate and rhythm without murmurs, rubs or gallops. ABDOMEN: Bowel sounds present. Flat, soft, nontender. RECTAL: Not performed. EXTREMITIES: No clubbing, cyanosis or edema. Vitiligo skin changes of the hands. NEUROLOGIC: The patient is confused, unable to fully assess but no gross focal findings. PSYCHIATRIC: The patient is calm and is cooperative. LABORATORY WBC 9.3, platelets 331, 71% neutrophils, hemoglobin 12.6. Creatinine 1.32, BUN 11, estimated GFR 52. IMPRESSION 1. Urinary tract infection. Cultures so far showing yeast. 2. Altered mental status, probably secondary to infection versus hydrocephalus. RECOMMENDATIONS 1. Begin Fluconazole for yeast in the urine. 2. Monitor urine culture and discontinue vancomycin if the urine culture does not have MRSA. He does have a history of MRSA on the last urine culture in June. 3. Monitor blood cultures. 4. Monitor temperatures. Thank you this consultation. The patient's progress will be monitored and further recommendations will be made on follow-up if indicated. Franny Metz MD FD/MEGA /1:23 PM /1:42 PM JUANY
[2016-07-23] MEDS: FLUCONAZOLE 100 MG TAB PO SCH (15:23)
[2016-07-24] VITALS: BP 110/62; PULSE 76; RESP 20; TEMP 97.8; O2SAT 97
[2016-07-24] MEDS: INSULIN ASPART SUPPLEMENTAL SCALE SQ SCH ×4 (05:17→20:26)
[2016-07-24] MEDS: SODIUM CHLOR 0.9% 1000 ML INJ 1,000 ML IV SCH ×3 (05:17→20:30)
[2016-07-24 08:00] VITALS: BP 117/73; PULSE 95; RESP 16; TEMP 96; O2SAT 94
--- NOTE | 2016-07-24 08:01 | MG ---
cc: MAKENZIE BARNHART M.D. Lab No:[id number] Date:07/24/2016 Age: 81 Sex: M Race: A 81-year-old weakness, hallucinating, seizures, memory loss, hyperlipidemia, kidney stones, vancomycin, Effexor, diffuse 8 Hz rhythm is seen, 60 microvolts including overall is synchronous and symmetric, movement artifact is at times noted. Some awake, tremors were seen which just correlate with some muscle artifact, no seizure activity was noted. Hyperventilation was not performed, head and body movement was seen again, this is movement artifact. IMPRESSION A normal EEG all tremors and body movements were just muscle artifact is did not correlate with any seizure activity on the Electroencephalogram. MD YADIEL Gasca/guerda /7:36 AM /7:56 AM
[2016-07-24] MEDS: VENLAFAXINE HCL XR 75 MG CAP PO SCH (09:15)
[2016-07-24] MEDS: FLUCONAZOLE 100 MG TAB PO SCH (09:16)
[2016-07-24] MEDS: METOPROLOL TARTRATE 25 MG TAB PO SCH ×2 (09:16→20:30)
[2016-07-24] MEDS: LISINOPRIL 5 MG TAB PO SCH (09:16)
[2016-07-24] MEDS: SILVER SULFADIAZINE 1% CR 50 GM JAR TOPICAL SCH (09:17)
[2016-07-24] MEDS: SODIUM CHLORIDE 0.9% FLUSH 10 ML FLUSH IV FLUSH SCH ×2 (09:17→20:29)
[2016-07-24] MEDS: PRAVASTATIN SOD 20 MG TAB PO SCH (09:17)
[2016-07-24] MEDS: MAGNESIUM OXIDE 400 MG TAB PO SCH (09:17)
[2016-07-24] MEDS: VANCOMYCIN INJ 1,250 MG in SODIUM CHLOR 0.9% 250 ML INJ 250 ML IV SCH (09:17)
[2016-07-24 12:00] VITALS: BP 127/68; PULSE 80; RESP 16; TEMP 96.4; O2SAT 96
--- NOTE | 2016-07-24 12:38 | HHI.PR ---
Subjective Remarks Sleeping No facial grimace Arouses to verbal stimuli, but still drowsy Afebrile Knows that he is in the hospital (Taylor Cm) Objective Objective Results - Vital Signs Date Time Temp Pulse Resp B/P Pulse Ox O2 Delivery O2 Flow Rate FiO2 07/24/16 08:00 96.0 95 16 117/73 94 07/24/16 00:00 97.8 76 20 110/62 97 07/23/16 22:34 97.6 70 18 104/59 95 07/23/16 19:19 97.8 66 16 98/55 94 07/23/16 15:29 98.7 86 23 126/58 96 I/O 07/23/16 07/23/16 07/23/16 07/24/16 07/24/16 07/24/16 07:00 15:00 23:00 07:00 15:00 23:00 Intake Total 725 ml 770 ml Output Total 1050 ml 400 ml 250 ml Balance -1050 ml 325 ml 520 ml Intake Oral 0 ml 120 ml IV Total 725 ml 650 ml Output Urine Total 1050 ml 400 ml 250 ml # Bowel Movements 0 0 (Taylor Cm) Result Diagram: 07/23/16 1215 07/23/16 1215 ROS General: Fatigue, Weakness (generalized), Other (10 point ROS done, positives noted otherwise unremarkable) /SUMMONS SERVER: Urgency, Other (Anaya catheter) Neuro/MS: Other (altered mental status, but improving, knows place when I ask) (Taylor Cm) Physical Exam Physical Exam PHYSICAL EXAMINATION GENERAL: This is a chronically ill male Resting in the bed. He is drowsy but responds to verbal stimuli HEAD: Normocephalic without any lesion or mass noted. Facial features appear symmetric., Mouth open for sleeping OROPHARYNGEAL: Oropharynx without erythema or edema., Dry NECK: Supple. No nuchal rigidity or lymphadenopathy. Trachea midline without deviation. CARDIAC: Regular rhythm, regular rate, S1 and S2 are heard. LUNGS: Clear to auscultation bilaterally. no wheeze, no rhonchi No use of accessory muscles on inspiration or expiration. ABDOMEN: Soft, nontender, no organomegaly or masses. Bowel sounds are heard in all four quadrants. No rebound. No guarding. EXTREMITIES: no LE edema. Pulses equal bilateral. NEUROLOGICAL: Patient affect is drowsy, responds to verbal stimuli. SKIN:Warm and moist, dry (Taylor Cm) A/P Assessment and Plan (1) Altered mental status, unspecified (2) UTI (3) BPH (benign prostatic hyperplasia) (4) NPH (normal pressure hydrocephalus) (5) Diabetes (6) Frequent falls (7) Hyperlipidemia (8) Hypertension (9) Acute kidney injury (10) Failure of outpatient treatment (11) Chronic indwelling Anaya catheter Recurrent UTI, has chronic indwelling catheter, Anaya was changed on 07/21/2016. IV antibiotics vancomycin with pharmacy to dose, blood cultures and urine cultures negative so far Consult infectious disease for antibiotic management, appreciate input Anemia, stable with hemoglobin at 12.6, probable secondary to chronic disease Altered mental status, probable secondary to UTI Monitor with neuro checks neuro checks, patient now realizes where he is at [facility] Consult neurosurgery -Dr. Shah evaluated, recommends to continue with UTI treatment. Appreciate expert opinion and input for his plan of care - ammonia, cortisol, sedimentation rate, C-reactive protein normal Shunt appears intact, we'll continue to monitor his needs Physical therapy Acute renal injury, possibly secondary to dehydration, mild IV hydration, will monitor labs as needed Type 2 diabetes Accu-Cheks before meals and at bedtime with insulin therapy Hypertension, stable -Resume home medications Hyperlipidemia Continue with home medications SCDs for DVT prophylaxis Physical therapy consulted for evaluation and treatment Discharge planning pending clearing of his altered mental status and response to treatment of UTI (Taylor Cm) Assessment and Plan pt is seen & examined d/w taylor still very tired/sleepy , not sleeping well at night check ABG will add seroquel qhs OOB to chair daily d/c IV vanco cont diflucan ss for d.c planning d/w keily (Terell Barrera MD) Taylor Cm July 24, 2016 12:38 Terell Barrera MD July 24, 2016 13:25
[2016-07-24 16:00] VITALS: BP 131/68; PULSE 81; RESP 12; TEMP 96.7; O2SAT 95
[2016-07-24 17:25] LABS: BLOOD GAS BASE EXCESS -0.1 mmol/L (-2-2); BLOOD GAS CARBOXYHEMOGLOBIN 1.2 % (0-4); BLOOD GAS HCO3 24 mmol/L (22-26); BLOOD GAS METHEMOGLOBIN 0.8 % (0-2); BLOOD GAS O2 HGB SATURATION 89 % (90-100); BLOOD GAS OXYGEN CONTENT 15.6 Vol % (12.0-20.0); BLOOD GAS PCO2 43 mmHg (38-42); BLOOD GAS PO2 65 mmHg (61-120); BLOOD GAS TOTAL HGB 12.4 G/DL (12.0-16.0); TEMP CORR TO 98.6
[2016-07-24 17:29] LABS: CRITICAL VALUE YES
[2016-07-24 17:31] LABS: DRAW SITE LT RADIAL; FIO2 21 %; NUMBER OF ARTERIAL PUNCTURES 1; OXYGEN DEVICE RA; STAT NO; ULNAR PULSE Y
[2016-07-24 20:00] VITALS: BP 120/58; PULSE 80; RESP 18; TEMP 97.2; O2SAT 95
[2016-07-24] MEDS: QUEtiapine FUMARATE 25 MG TAB PO SCH (20:29)
[2016-07-25] VITALS: BP 98/56; PULSE 82; RESP 18; TEMP 97.3; O2SAT 96
[2016-07-25] MEDS: INSULIN ASPART SUPPLEMENTAL SCALE SQ SCH ×5 (05:24→21:01)
[2016-07-25 08:00] VITALS: BP 132/60; PULSE 87; RESP 20; TEMP 95.9; O2SAT 95
[2016-07-25] MEDS ORDERED: PHARMACY ORDERED LAB ONE (08:45)
[2016-07-25] MEDS: LISINOPRIL 5 MG TAB PO SCH (08:56)
[2016-07-25] MEDS: VENLAFAXINE HCL XR 75 MG CAP PO SCH (08:57)
[2016-07-25] MEDS: FLUCONAZOLE 100 MG TAB PO SCH (08:58)
[2016-07-25] MEDS: SODIUM CHLORIDE 0.9% FLUSH 10 ML FLUSH IV FLUSH SCH ×2 (09:00→21:00)
[2016-07-25] MEDS: PRAVASTATIN SOD 20 MG TAB PO SCH (09:00)
[2016-07-25] MEDS: QUEtiapine FUMARATE 25 MG TAB PO SCH (09:00)
[2016-07-25] MEDS: MAGNESIUM OXIDE 400 MG TAB PO SCH (09:00)
[2016-07-25] MEDS: METOPROLOL TARTRATE 25 MG TAB PO SCH ×2 (09:00→21:00)
[2016-07-25] MEDS: SILVER SULFADIAZINE 1% CR 50 GM JAR TOPICAL SCH (09:03)
--- NOTE | 2016-07-25 10:52 | HHI.PR ---
Subjective Remarks Eyes closed but responding to verbal stimuli, drowsy No facial grimace Afebrile Knows that he is in the hospital, and understands that he has been sick (Taylor Cm) Objective Objective Results - Vital Signs Date Time Temp Pulse Resp B/P Pulse Ox O2 Delivery O2 Flow Rate FiO2 07/25/16 08:00 95.9 87 20 132/60 95 07/25/16 00:00 97.3 82 18 98/56 96 07/24/16 20:00 97.2 80 18 120/58 95 07/24/16 16:00 96.7 81 12 131/68 95 07/24/16 12:00 96.4 80 16 127/68 96 I/O 07/24/16 07/24/16 07/24/16 07/25/16 07/25/16 07/25/16 07:00 15:00 23:00 07:00 15:00 23:00 Intake Total 770 ml 950 ml 780 ml 755 ml 0 ml Output Total 250 ml 1000 ml 650 ml 550 ml Balance 520 ml -50 ml 130 ml 755 ml -550 ml Intake Oral 120 ml 480 ml 0 ml 0 ml IV Total 650 ml 470 ml 780 ml 755 ml Output Urine Total 250 ml 1000 ml 650 ml 550 ml # Bowel Movements 0 0 0 0 (Taylor Cm) Result Diagram: 07/23/16 1215 07/23/16 1215 ROS General: Weakness (continues with generalized), Other (10 point ROS done positives noted otherwise systems unremarkable) Pulmonary: Other (low volumes, few rhonchi noted) Neuro/MS: Confusion (continues with some altered mental status, and extreme debility) (Taylor Cm) Physical Exam Physical Exam PHYSICAL EXAMINATION GENERAL: This is a chronically ill male Resting in the bed He is drowsy with eyes closed at times but is responding to verbal stimuli HEAD: Normocephalic . Facial features appear symmetric. OROPHARYNGEAL: Oropharynx without erythema or edema, dry. NECK: Supple. Trachea midline without deviation. CARDIAC: Regular rhythm, regular rate, S1 and S2 are heard. LUNGS: Diminished to auscultation bilaterally. , positive rhonchi low volumes ABDOMEN: Soft, nontender, no organomegaly or masses. Bowel sounds are heard in all four quadrants. , Anaya catheter in place clear yellow urine EXTREMITIES: No edema. Pulses present NEUROLOGICAL: Patient mood and affect flat, still has trends of altered mental status SKIN:Warm, dry Objective Remarks I feel mushy today (Taylor Cm) A/P Assessment and Plan (1) Altered mental status, unspecified (2) UTI (3) BPH (benign prostatic hyperplasia) (4) NPH (normal pressure hydrocephalus) (5) Diabetes (6) Frequent falls (7) Hyperlipidemia (8) Hypertension (9) Acute kidney injury (10) Failure of outpatient treatment (11) Chronic indwelling Anaya catheter Recurrent UTI, has chronic indwelling catheter, Anaya was changed on 07/21/2016. IV antibiotics vancomycin with pharmacy to dose, blood cultures and urine cultures negative so far Consult infectious disease for antibiotic management, appreciate input Encouraged patient to cough and take deep breaths We'll maintain Anaya catheter due to urinary retention and according to the record stone blockages Anemia, stable , probable secondary to chronic disease Altered mental status, probable secondary to UTI, but has continues after aggressive treatment. Monitor with neuro checks, patient waxes and wanes with his drowsiness, but knows where he is that he has been sick Close his eyes but responds to verbal stimuli. Nurse states patient did himself this morning. No issues with swallowing Neuro consult for additional input for plan of care. Consult neurosurgery -Dr. Shah evaluated, recommends to continue with UTI treatment. Appreciate expert opinion and input for his plan of care - ammonia, cortisol, sedimentation rate, C-reactive protein normal Shunt appears intact, we'll continue to monitor his needs Physical therapy, the patient is unable to stand or support his weight. Will encouraged to be out of bed in chair Acute renal injury, possibly secondary to dehydration, mild IV hydration, will monitor labs as needed Type 2 diabetes Accu-Cheks before meals and at bedtime with insulin therapy SCDs for DVT prophylaxis Discharge planning pending clearing of his altered mental status and response to treatment of UTI Planning on SNF placement Will follow-up with Dr. barrera concerning patient's labile altered mental status , seen on his behalf Discussed With: Nurse, Family (no family present) (Taylor Cm) Assessment and Plan PT is seen & examined was awake this am , fed him self/ate well now snoring/ respond to questions/ talks w eyes closed, start snoring again Excessive somnolence Sleep apnea/narcolepsy ?? Need polysomnography trial provigil obtain Neuro consult DR anderson will f/u in am (Terell Barrera MD) Taylor Cm July 25, 2016 10:52 Terell Barrera MD July 25, 2016 11:35
[2016-07-25 12:00] VITALS: BP 99/51; PULSE 78; RESP 22; TEMP 95.4; O2SAT 96
[2016-07-25] MEDS: SODIUM CHLOR 0.9% 1000 ML INJ 1,000 ML IV SCH ×2 (13:28→21:01)
[2016-07-25] MEDS ORDERED: MODAFINIL 200 MG TAB PO ONE (14:00)
[2016-07-25] MEDS: RESP: ALBUTEROL 2.5 MG/IPRATROPIUM 0.5 MG NEB (SCH) NEB (15:41)
[2016-07-25 16:00] VITALS: BP 117/54; PULSE 88; RESP 18; TEMP 99.3; O2SAT 95
--- NOTE | 2016-07-25 17:38 | MB ---
cc: MAKENZIE BARNHART DATE OF CONSULTATION 07/25/16 HISTORY OF PRESENT ILLNESS An 81-year-old man with a history of normal pressure hydrocephalous, hypertension, hyperlipidemia, recurrent UTIs, sepsis, came into the ER for change in mental status, recently admitted for sepsis and UTI. Cultures positive for MRSA in the urine. The patient improved, was discharged, has had a Anaya catheter for 6 months, became much weaker during the last week, more confused, not eating well, nausea and vomiting. He fell a few days ago. He had been on antibiotics at home. Some coughing. UA was positive, large amount of leukoesterase. CBC unremarkable. BMP showed dehydration, sodium 132. CT was negative. Shunt study negative. I am asked to see him for mental status change. He was seen by neurosurgery, Dr. Shah, who felt that the shunt was working properly. 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 MEDICATIONS 1. Magnesium. 2. Bactrim. 3. Zofran. 4. Glyburide. 5. Venlafaxine. 6. Lisinopril. 7. Metoprolol. 8. Zocor. 9. Zantac At home. Vancomycin here. FAMILY HISTORY Father had seizures. Mother healthy. SOCIAL HISTORY Not a smoker or a drinker. No drug use. PHYSICAL EXAMINATION VITAL SIGNS: On T-max is 99.3 but generally afebrile, 117/54, 18, 88. NECK: There were no carotid bruits. HEART: Regular rhythm. I did not detect a murmur. NEURO: He is awake and alert. He knows he is in the hospital but does not know the year, the month or the town he lives in but he does know the street he lives on but not the town he lives in. He cannot remember the year or other cities after I tell him. His speech is fluent. He is not aphasic. He is actually quite alert. Visual wang are full. Extraocular movements intact without nystagmus. Face is symmetric. Tongue was midline. He had normal strength in upper and lower extremities bilaterally. Tone in bilateral lower extremities was normal. Toes were downgoing bilaterally. LABORATORY DATA CBC is normal, sed rate 6. RPR has been negative in the past as has been rheumatoid factor and antinuclear antibody. He had some CSF checked in 2014, showed 11 white cells, 32 red cells, 67% lymphocytes, elevated glucose, normal protein, CSF VDRL has been negative in the past. His sodium is 132, creatinine 1.32 otherwise BMP is normal. Ammonia is 22. LFTs are normal. Calcium is normal. TSH normal. B12 normal in 2003. Folate normal back then also. Coags have been normal. ABG here normal except a pAO2 of 65. He had a chest x-ray that was negative. His UA here showed a large amount of leuko esterase, 60 white cells, a few white cell blood cell clumps. He has some neetu in the urine. Blood cultures have been negative. CAT scan of the brain was read as negative. Review of the films vents are prominent. He has some diffuse atrophy. Ventricles are prominent. He has some diffuse cortical atrophy. No infarct is noted, in comparing the ventricle size to January 2016, I would say they are unchanged. IMPRESSION Dementia, history of NPH. I think he probably looks at his baseline here. I do not see anything particularly abnormal. Will check a B12 level and an EEG with a history of seizures but have physical therapy ambulate him. We can check some standing blood pressures on him. Overall, I thought he looked likely at his baseline. We could start him on some memory medicines in the future if that has not been tried before and he should follow up with his outpatient neurologist after discharge but I do not see him having a prolonged stay here in the hospital. We see how he ambulates with PT. I think it is a good idea to keep him off of the antipsychotics which has been stopped. MD YADIEL Gasca/FLEX /5:09 PM /5:20 PM
[2016-07-25 20:00] VITALS: BP 120/56; PULSE 101; RESP 18; TEMP 101.2; O2SAT 95
[2016-07-26] VITALS: BP 96/54; PULSE 87; RESP 18; TEMP 98.3; O2SAT 97
[2016-07-26] MEDS: RESP: ALBUTEROL 2.5 MG/IPRATROPIUM 0.5 MG NEB (SCH) NEB ×3 (01:18→15:23)
[2016-07-26] MEDS: INSULIN ASPART SUPPLEMENTAL SCALE SQ SCH ×4 (05:31→22:35)
--- NOTE | 2016-07-26 07:46 | HHI.PR ---
Objective Vital Signs Date Time Temp Pulse Resp B/P Pulse Ox O2 Delivery O2 Flow Rate FiO2 07/26/16 00:00 98.3 87 18 96/54 97 07/25/16 20:00 101.2 101 18 120/56 95 07/25/16 16:00 99.3 88 18 117/54 95 07/25/16 12:00 95.4 78 22 99/51 96 07/25/16 08:00 95.9 87 20 132/60 95 I/O 07/25/16 07/25/16 07/25/16 07/26/16 07/26/16 07/26/16 07:00 15:00 23:00 07:00 15:00 23:00 Intake Total 755 ml 1204 ml 120 ml 875 ml Output Total 1000 ml 600 ml 125 ml Balance 755 ml 204 ml -480 ml 750 ml Intake Oral 360 ml 120 ml 120 ml IV Total 755 ml 844 ml 755 ml Output Urine Total 1000 ml 600 ml 125 ml # Bowel Movements 0 0 Result Diagram: 07/23/16 1215 07/23/16 1215 Other Results esr b12 ok Objective Remarks awake alert moves all well tone not bad in ble but he tends to scissor his feet on attempt to stand and retropulses backwards with standing cannot take step Assessment and Plan Assessment and Plan imp will try sinemet check standing bp PT and will have nusu adjust shunt to take off more fluid Aston Nichols MD July 26, 2016 07:46
[2016-07-26 08:00] VITALS: BP_SYST 118; BP_SYST 139; BP_SYST 145; BP_DIAS 57; BP_DIAS 65; BP_DIAS 67; PULSE 91; RESP 16; TEMP 95.7; O2SAT 96
[2016-07-26] MEDS: SODIUM CHLORIDE 0.9% FLUSH 10 ML FLUSH IV FLUSH SCH ×2 (09:00→20:40)
[2016-07-26] MEDS: SODIUM CHLOR 0.9% 1000 ML INJ 1,000 ML IV SCH ×2 (10:08→20:39)
[2016-07-26] MEDS: CARBIDOPA/LEVODOPA 25 MG/100 MG TAB PO SCH ×3 (10:09→17:15)
[2016-07-26] MEDS: PILL SPLITTER OTHER PRN (10:09)
[2016-07-26] MEDS: FLUCONAZOLE 100 MG TAB PO SCH (10:09)
[2016-07-26] MEDS: MODAFINIL 200 MG TAB PO SCH (10:09)
[2016-07-26] MEDS: METOPROLOL TARTRATE 25 MG TAB PO SCH ×2 (10:10→20:41)
[2016-07-26] MEDS: LISINOPRIL 5 MG TAB PO SCH (10:10)
[2016-07-26] MEDS: PRAVASTATIN SOD 20 MG TAB PO SCH (10:10)
[2016-07-26] MEDS: VENLAFAXINE HCL XR 75 MG CAP PO SCH (10:10)
[2016-07-26] MEDS: MAGNESIUM OXIDE 400 MG TAB PO SCH (10:11)
[2016-07-26] MEDS: SILVER SULFADIAZINE 1% CR 50 GM JAR TOPICAL SCH (10:19)
--- NOTE | 2016-07-26 11:25 | HHI.NSPN ---
(Tristen Hutchinson) Note Status Status: Progress Note (Tristen Hutchinson) Interval History Interval History 07/22: 81-year-old male brought to the emergency room today with altered mental status. No recent fall. He has a previous emergency room evaluation for altered mental status in 2016. Also recent admission in June 2016 for UTI with sepsis. Patient was discharged on antibiotic therapy. He presents with complaints of approximately 1 week of generalized increased lethargy, mild confusion, decreased appetite and nausea and vomiting. Positive nonproductive cough. No definite fevers or chills. No diarrhea. No complaint of significant headache, dizziness, vertigo. 07/26: Patient having nausea when seen. Therapy reports patient had a large bilious emesis after being sat up on the side of the bed prior to being seen. He denied any headache or dizziness. (Tristen Hutchinson) Labs, Micro, & Vital Signs Constitutional Vital Signs Date Time Temp Pulse Resp B/P Pulse Ox O2 Delivery O2 Flow Rate FiO2 07/26/16 08:00 95.7 91 16 145/67 96 118/57 139/65 07/26/16 00:00 98.3 87 18 96/54 97 07/25/16 20:00 101.2 101 18 120/56 95 07/25/16 16:00 99.3 88 18 117/54 95 07/25/16 12:00 95.4 78 22 99/51 96 07/26/16 06:59 Intake Total 2199 ml Output Total 1725 ml Balance 474 ml (Tristen Hutchinson) Review of Systems/Exam ROS Constitutional: Fever during the night. Respirataory: Patient denies any shortness of breath or productive cough. Cardiac. Patient denies any chest pain, palpitations or irregular heart beat. GI: Patient has nausea and has vomited. He denies any bowel incontinence. He states he hasn't had a bowel movement in a week but has no urge to go. : Patient has a Anaya catheter in place. MS: Patient states that his legs feel weak. Neuro: Patient states he feels off balance. He denies any headache, dizziness, numbness or tingling. Exam General: Well-developed, well-nourished, thin male who appears his stated age. HEENT: Normocephalic, atraumatic. Resp: CTAB w/o W/R/R, equal excursion, non-laboured, on RA. CV: S1S2 w/RRR w/o M/G/R, radial & pedal pulses 2+ bilaterally, cap refill < 2 sec, no pedal edema. GI: Abdomen, soft, non-tender, no masses or organomegaly, positive bowel sounds. : Anaya catheter to BSD w/clear yellow urine. MS: ROCHA, extremities normal, no deformities or discolouration. Neuro: Awake & alert, oriented to person, being in hospital & year. Sensation grossly intact to light touch to all extremities. Motor strength BUE & RLE 5/5 and LLE 4+ to 5/5. (Tristen Hutchinson) Medications Current Medications Current Medications Medications (Trade) Dose Ordered Sig/Robert Route Start Time Stop Time Status Last Admin (Lopressor) 12.5 mg BID PO 07/22/16 21:00 07/26/16 10:10 (Silvadene 1% Cream (50 Gm)) 1 applic DAILY TOPICAL 07/23/16 09:00 07/26/16 10:19 (Effexor Xr) 150 mg DAILY PO 07/23/16 09:00 07/26/16 10:10 (Prinivil) 2.5 mg DAILY PO 07/23/16 09:00 07/26/16 10:10 (Mag-Ox) 400 mg DAILY PO 07/23/16 09:00 07/26/16 10:11 Pravastatin Sodium 20 mg 20 mg DAILY PO 07/23/16 09:00 07/26/16 10:10 (NS 1000 ml Inj) 1,000 ml @ 100 mls/hr Q10H IV 07/22/16 15:43 07/26/16 10:08 (NS Flush) 2 ml UNSCH PRN IV FLUSH 07/22/16 15:45 (NS Flush) 2 ml BID IV FLUSH 07/22/16 21:00 07/25/16 21:00 (Tylenol) 650 mg Q4H PRN PO 07/22/16 15:45 07/25/16 21:03 (Zofran Inj) 4 mg Q6H PRN IVP 07/22/16 15:45 07/23/16 06:39 (Narcan Inj) 0.4 mg UNSCH PRN IV 07/22/16 15:45 (Pill Splitter) 1 ea UNSCH PRN OTHER 07/22/16 16:00 07/26/16 10:09 (D50w (Vial) Inj) 25 ml UNSCH PRN IV PUSH 07/22/16 15:45 (Glucagon Inj) 1 mg UNSCH PRN OTHER 07/22/16 15:45 (Diflucan) 100 mg DAILY PO 07/23/16 13:45 07/26/16 10:09 (Provigil) 100 mg DAILY PO 07/26/16 09:00 07/26/16 10:09 (Sinemet 25-100 Mg) 1 tab DAILY@06,12,16 PO 07/26/16 08:00 07/26/16 10:09 (Tristen Hutchinson) Medical Decision Making MDM Remarks Impression: 1. Altered mental status, uncertain of baseline. A. Neurology feels patient is at baseline 2. UTI 3. History of NPH. Status post ventriculoperitoneal shunt. No definite evidence of shunt malfunction or infection at present. T max 101.2 Nausea & vomiting with sitting up on edge of bed (Tristen Hutchinson) Plan Plan Remarks Plan of care discussed with patient. Continue tx of UTI per ID Recommend monitoring of sodium and correct hyponatremia if present. Will continue to follow his neurologic function and if no improvement with treatment of medical issues, consider ventriculoperitoneal shunt. (Tristen Hutchinson) Attending Statement I have personally seen and examined the patient on the date of this note. Pertinent documentation and study results have been reviewed by the undersigned. I have personally developed the treatment plan and performed medical decision making. Agree with findings, exam, and treatment plan as noted above. Patient's neurologic exam remained stable since initial evaluation. He remains mildly to moderately confused. He knows that he is in the hospital, can tell me what year it is with difficulty, not the month. He is not agitated. Follow simple commands well. No focal cranial nerve or extremity sensory motor deficit. No tenderness or erythema or edema around the shunt tract. Abdomen soft and nontender. He has had some nausea, also productive cough. No real change in mentation since starting antibiotics. Shunt infection seems somewhat unlikely based on his presentation but a shunt tap can be considered a persistent fevers. He has had some nausea but no obvious peritonitis. His BMP on 07/23/16 revealed decreased sodium. A follow-up CMP is scheduled for the morning. His white count has not been elevated. Sputum Gram stain, C&S is pending His EEG shows generalized slowing without epileptic activity. (Darrel Shah MD) Tristen Hutchinson July 26, 2016 11:25 Darrel Shah MD July 26, 2016 19:25
[2016-07-26 12:00] VITALS: BP 117/60; PULSE 95; RESP 16; TEMP 97; O2SAT 95
--- NOTE | 2016-07-26 12:55 | HHI.PR ---
Subjective Remarks Resting in bed, alert, talkative, Some pleasant confusion on current events, but knows what hospital he is in Appetite fair Febrile last 24 hours Coughing up thick brown agrawal sputum 1 this a.m. (Taylor Cm) Objective Objective Results - Vital Signs Date Time Temp Pulse Resp B/P Pulse Ox O2 Delivery O2 Flow Rate FiO2 07/26/16 12:00 97.0 95 16 117/60 95 07/26/16 08:00 95.7 91 16 145/67 96 118/57 139/65 07/26/16 00:00 98.3 87 18 96/54 97 07/25/16 20:00 101.2 101 18 120/56 95 07/25/16 16:00 99.3 88 18 117/54 95 I/O 07/25/16 07/25/16 07/25/16 07/26/16 07/26/16 07/26/16 07:00 15:00 23:00 07:00 15:00 23:00 Intake Total 755 ml 1204 ml 120 ml 875 ml Output Total 1000 ml 600 ml 125 ml Balance 755 ml 204 ml -480 ml 750 ml Intake Oral 360 ml 120 ml 120 ml IV Total 755 ml 844 ml 755 ml Output Urine Total 1000 ml 600 ml 125 ml # Bowel Movements 0 0 (Taylor Cm) Result Diagram: 07/23/16 1215 07/23/16 1215 ROS General: Weakness (generalized but improving), Other (10 point ROS done positives noted are productive of thick sputum 1, fever of unknown origin, altered mental status pleasant confusion, occasional cough, debility, of systems negative or unremarkable) Pulmonary: Cough, Other (occasional thick rhonchi in sputum,) /ZOOLOGY TECHNICAL OFFICER: Other (Anaya catheter) (Taylor Cm) Physical Exam Physical Exam PHYSICAL EXAMINATION GENERAL: This is a well-developed, elderly male who appears to be in no acute distress. He is awake, eyes open, attempting to answer simple questions HEAD: Normocephalic without any lesion or mass noted. Facial features appear symmetric. OROPHARYNGEAL: Oropharynx without erythema or edema. NECK: Supple. Trachea midline without deviation. CARDIAC: Regular rhythm, regular rate, S1 and S2 are heard. LUNGS: Decreased to auscultation mild at bases. No wheeze, occasional rhonchi and thick sputum ABDOMEN: Soft, nontender, taut. Bowel sounds active EXTREMITIES: no edema. Pulses equal bilateral. NEUROLOGICAL: Patient mood and affect more alert today but pleasant confusion . SKIN:Warm and moist (Taylor Cm) A/P Assessment and Plan (1) Altered mental status, unspecified (2) UTI (3) BPH (benign prostatic hyperplasia) (4) NPH (normal pressure hydrocephalus) (5) Diabetes (6) Frequent falls (7) Hyperlipidemia (8) Hypertension (9) Acute kidney injury (10) Failure of outpatient treatment (11) Chronic indwelling Anaya catheter Fever last night unknown origin, coughing up some thick sputum this morning when working with physical therapy We will culture sputum if he coughs up anything else. We'll recheck his labs in the morning or any changes and WBC count as well as differential and chemistries, hemoglobin hematocrit Recurrent UTI, has chronic indwelling catheter, Anaya was changed on 07/21/2016. IV antibiotics continue for now Consult infectious disease for antibiotic management, appreciate input Encouraged patient to cough and take deep breaths We'll maintain Anaya catheter due to urinary retention and according to the record stone blockages Anemia, stable , probable secondary to chronic disease Altered mental status, probable secondary to UTI, but has continues after aggressive treatment. Neurology consult for their expert opinion, added meds today and reviewing for dementia. Recommends to keep off of antipsychotic meds Neurosurgery consult for shunt review again. Add Sinemet, check BP standing, patient struggling with standing and mobility. See note. Physical therapy, the patient is unable to stand or support his weight. Will encouraged to be out of bed in chair Acute renal injury, possibly secondary to dehydration, mild IV hydration, recheck labs in the morning Type 2 diabetes Accu-Cheks before meals and at bedtime with insulin therapy SCDs for DVT prophylaxis Discharge planning pending clearing of his altered mental status and response to treatment of UTI Planning on SNF placement, but held today due to new fever and new neurology consult. Will recheck his labs in the morning, get sputum culture if patient coughs up any more thick sputum Discussed With: Nurse, Family (no family present) (Taylor Cm) Assessment and Plan pt seen and examined as above pt had fever high grade 'cont abx labs for am labs and meds reviewed rad data reviewed dw pt plan of care dw investment representative cond guarded prog guarded total time spent in management of this pt is more than 35 min (Radhames Greenwood MD ) Taylor Cm July 26, 2016 12:55 Radhames Greenwood MD July 26, 2016 13:52
--- NOTE | 2016-07-26 14:18 | HHI.IDPN ---
Note Infectious Disease Note Patient had temp of 101.2 last evening. Says he feels okay. very alert. Vomited earlier today. Noted to have yellow phlegm. Denies chills. SOB, Abdominal pain. Patient was brought to the emergency department by his family because of altered mental status. The patient reportedly was having nausea and vomiting and cough and his mental status was altered. PAST MEDICAL HISTORY 1. Hypertension. 2. Diabetes mellitus, type 2. 3. Benign prostatic hypertrophy. 4. Kidney stone. 5. History of seizure disorder. 6. Hyperlipidemia. 7. COPD. 8. Appendectomy. 9. Hernia repair. 10.The patient has a history of Anaya catheter which was changed on 07/21/2016. ALLERGIES No known drug allergies. ANTIBIOTICS: Diflucan. OBJECTIVE: Vital Signs Date Time Temp Pulse Resp B/P Pulse Ox O2 Delivery O2 Flow Rate FiO2 07/26/16 12:00 97.0 95 16 117/60 95 07/26/16 08:00 95.7 91 16 145/67 96 118/57 139/65 07/26/16 00:00 98.3 87 18 96/54 97 07/25/16 20:00 101.2 101 18 120/56 95 07/25/16 16:00 99.3 88 18 117/54 95 07/25/16 07/25/16 07/26/16 15:00 23:00 07:00 Intake Total 1204 ml 120 ml 875 ml Output Total 1000 ml 600 ml 125 ml Balance 204 ml -480 ml 750 ml Intake Oral 360 ml 120 ml 120 ml IV Total 844 ml 755 ml Output Urine Total 1000 ml 600 ml 125 ml # Bowel Movements 0 0 Laboratory Tests Test 07/25/16 19:35 Erythrocyte Sedimentation Rate 11 mm/hr Laboratory Tests Test 07/25/16 19:35 Vitamin B12 Level 375 PG/ML PHYSICAL EXAMINATION GENERAL: No acute distress. HEENT: Head is atraumatic. Extraocular movements grossly intact. Pupils reactive to light. No icterus. Oropharynx no visible lesions. NECK: Supple without adenopathy. LUNGS: Clear to auscultation. HEART: Regular rate and rhythm without murmurs, rubs or gallops. ABDOMEN: Bowel sounds present. Flat, soft, nontender. EXTREMITIES: No clubbing, cyanosis or edema. Vitiligo skin changes of the hands. NEUROLOGIC: Awake and alert. PSYCHIATRIC: Calm and is cooperative. IMPRESSION 1. Urinary tract infection. neetu. 2. Altered mental status, probably secondary to infection versus hydrocephalus. 3. Fever. ? PNA. ? aspiration. RECOMMENDATIONS 1. Continue Fluconazole for yeast in the urine. 2. Sputum culture. 3. Monitor blood cultures. 4. Monitor temperatures. Ruddy Metz MD July 26, 2016 14:18
--- NOTE | 2016-07-26 15:50 | MG ---
cc: ABBI JEFFERS M.D. Lab No: [id number] Date: 07/26/2016 Age: 81 Sex: M Race: DATE OF : [address] Nichols. Room 1733 with photic stimulation. This is a repeat study. He is awake, drowsy, asleep. Able to answer some of the simple questions asked. He has a CT that shows a ventriculostomy shunt in good position. His last EEG was 06/23/2016 normal, just a lot of tremors and movement, artifactual, no seizures. Admitted with fatigue, hallucination, weakness, vomiting, upper urinary tract infection. Medicines are Venlafaxine, lisinopril, Pravachol, Lopressor and others. DESCRIPTION OF RECORD The patient has some background slowing, predominately 3-4 Hz. A lot of movement artifact noted as well. At times some theta frequency as well, then he falls asleep, he starts snoring with some delta activity, a lot of muscle artifact, eye movement, snoring. There is driving response, minimal seen but more eye movement again. He was asked what day it was and he said which is incorrect. He was able to give his name, he stated Edward. IMPRESSION Abnormal EEG due to background slowing consistent with encephalopathic process, moderate degree, no epileptic activity. Clinical correlation. MD SIMA Navarrete/RANDI /12:43 PM /3:40 PM
[2016-07-26 16:00] VITALS: BP 103/54; PULSE 86; RESP 14; TEMP 97.3; O2SAT 94
[2016-07-26 20:00] VITALS: BP 123/58; PULSE 83; RESP 18; TEMP 97.6; O2SAT 96
[2016-07-27] VITALS (7 sets, daily range): BP systolic 109–143; BP diastolic 51–77; PULSE 76–118; RESP 17–20; TEMP 96.8–98.1; O2SAT 95–99
[2016-07-27 05:39] LABS: AUTOMATED NEUTROPHIL # 5.9 TH/MM3 (1.8-7.7); BASOPHIL # 0.1 TH/MM3 (0-0.2); BASOPHIL % 0.8 % (0.0-2.0); EOSINOPHIL # 0.3 TH/MM3 (0-0.4); EOSINOPHIL % 3.5 % (0.0-4.0); HEMATOCRIT 34.4 % (39.0-51.0); HEMO FLAGS DIFF FINAL; LYMPH % 16.2 % (9.0-44.0); LYMPHOCYTE # 1.4 TH/MM3 (1.0-4.8); MEAN CORPUSCULAR HEMOGLOBIN 26.8 PG (27.0-34.0); MEAN CORPUSCULAR HGB CONC 32.7 % (32.0-36.0); MONO % 9.6 % (0.0-8.0); NEUT % 69.9 % (16.0-70.0); PLATELET COUNT 277 TH/MM3 (150-450); RED CELL DISTRIBUTION WIDTH 16.7 % (11.6-17.2); WHITE BLOOD COUNT 8.5 TH/MM3 (4.0-11.0)
[2016-07-27] MEDS: INSULIN ASPART SUPPLEMENTAL SCALE SQ SCH ×4 (05:43→23:15)
[2016-07-27 06:08] LABS: ALKALINE PHOSPHATASE 80 U/L (45-117); ALT (GPT) 17 U/L (12-78); ANION GAP 7 MEQ/L (5-15); AST (GOT) 10 U/L (15-37); BICARBONATE 27.7 MEQ/L (21.0-32.0); BLOOD UREA NITROGEN 7 MG/DL (7-18); CHLORIDE 102 MEQ/L (98-107); GLOMERULAR FILTRATION RATE 74 ML/MIN (>89); POTASSIUM 3.7 MEQ/L (3.5-5.1); SODIUM (NA) 137 MEQ/L (136-145); TOTAL BILIRUBIN ADULT 0.8 MG/DL (0.2-1.0)
[2016-07-27] MEDS: CARBIDOPA/LEVODOPA 25 MG/100 MG TAB PO SCH ×3 (06:17→16:52)
--- NOTE | 2016-07-27 07:32 | HHI.PR ---
Objective Vital Signs Date Time Temp Pulse Resp B/P Pulse Ox O2 Delivery O2 Flow Rate FiO2 07/27/16 04:00 98.1 88 18 132/63 98 122/66 114/53 07/27/16 00:00 98.1 76 20 140/60 97 07/26/16 20:00 97.6 83 18 123/58 96 07/26/16 16:00 97.3 86 14 103/54 94 07/26/16 12:00 97.0 95 16 117/60 95 07/26/16 08:00 95.7 91 16 145/67 96 118/57 139/65 I/O 07/26/16 07/26/16 07/26/16 07/27/16 07/27/16 07/27/16 07:00 15:00 23:00 07:00 15:00 23:00 Intake Total 875 ml 1111 ml 925 ml 869 ml Output Total 125 ml 1300 ml 1100 ml 500 ml Balance 750 ml -189 ml -175 ml 369 ml Intake Oral 120 ml 360 ml 120 ml 120 ml IV Total 755 ml 751 ml 805 ml 749 ml Output Urine Total 125 ml 1300 ml 1100 ml 500 ml # Bowel Movements 0 0 Result Diagram: 07/27/16 0437 07/27/16 0435 Objective Remarks awake alert moves all well Assessment and Plan Assessment and Plan imp will try sinemet check standing bp nl PT and will have nusu adjust shunt to take off more fluid TODAY PLAN IS TO HAVE PT WALK HIM AFTER SINEMET AND ADJUST SHUNT TO TAKE MORE FLUID OFF AND SEE IF WE CAN GET HIM WALK BETTER Aston Nichols MD July 27, 2016 07:32
[2016-07-27] MEDS: FLUCONAZOLE 100 MG TAB PO SCH (08:36)
[2016-07-27] MEDS: MAGNESIUM OXIDE 400 MG TAB PO SCH (08:36)
[2016-07-27] MEDS: VENLAFAXINE HCL XR 75 MG CAP PO SCH (08:37)
[2016-07-27] MEDS: LISINOPRIL 5 MG TAB PO SCH (08:38)
[2016-07-27] MEDS: SODIUM CHLOR 0.9% 1000 ML INJ 1,000 ML IV SCH ×2 (08:38→16:52)
[2016-07-27] MEDS: METOPROLOL TARTRATE 25 MG TAB PO SCH ×2 (08:38→22:20)
[2016-07-27] MEDS: MODAFINIL 200 MG TAB PO SCH (08:38)
[2016-07-27] MEDS: PRAVASTATIN SOD 20 MG TAB PO SCH (08:38)
[2016-07-27] MEDS: SODIUM CHLORIDE 0.9% FLUSH 10 ML FLUSH IV FLUSH SCH ×2 (08:38→22:20)
[2016-07-27] MEDS: SILVER SULFADIAZINE 1% CR 50 GM JAR TOPICAL SCH (08:46)
[2016-07-27] MEDS: PILL SPLITTER OTHER PRN (08:46)
[2016-07-27] MEDS: RESP: ALBUTEROL 2.5 MG/IPRATROPIUM 0.5 MG NEB (SCH) NEB ×3 (08:48→16:14)
--- NOTE | 2016-07-27 10:53 | HHI.PR ---
Subjective Remarks Resting in bed, alert, talkative, pleasant alert oriented to person and time but has some confusion about place and current events Appetite fair Febrile last 24 hours not offering any complaint ros for 12 point system is unremarkable Objective Objective Results - Vital Signs Date Time Temp Pulse Resp B/P Pulse Ox O2 Delivery O2 Flow Rate FiO2 07/27/16 08:00 98.1 86 18 109/51 95 07/27/16 04:00 98.1 88 18 132/63 98 122/66 114/53 07/27/16 00:00 98.1 76 20 140/60 97 07/26/16 20:00 97.6 83 18 123/58 96 07/26/16 16:00 97.3 86 14 103/54 94 07/26/16 12:00 97.0 95 16 117/60 95 I/O 07/26/16 07/26/16 07/26/16 07/27/16 07/27/16 07/27/16 06:59 14:59 22:59 06:59 14:59 22:59 Intake Total 875 ml 1111 ml 805 ml 989 ml Output Total 125 ml 1300 ml 850 ml 750 ml Balance 750 ml -189 ml -45 ml 239 ml Intake Oral 120 ml 360 ml 240 ml IV Total 755 ml 751 ml 805 ml 749 ml Output Urine Total 125 ml 1300 ml 850 ml 750 ml # Bowel Movements 0 Result Diagram: 07/27/16 0437 07/27/16 0435 Imaging Last Impressions Head CT 07/22/16 1141 Signed Impressions: Service Date/Time: July 13:02 - CONCLUSION: 1. No acute intercranial abnormality. 2. The ventriculostomy shunt is in good position. Sudhakar Marrufo MD Chest X-Ray 07/22/16 1141 Signed Impressions: Service Date/Time: July 11:57 - CONCLUSION: No acute disease. Karsten Bledsoe Jr., MD Shunt Study (Imaging) 07/22/16 0000 Signed Impressions: Service Date/Time: July 13:38 - CONCLUSION: Shunt appears intact. Valve set to 120 mm of water. Rick Kwok MD Other Results Laboratory Tests Test 07/27/16 07/27/16 04:35 04:37 Sodium Level 137 Potassium Level 3.7 Chloride Level 102 Carbon Dioxide Level 27.7 Anion Gap 7 Blood Urea Nitrogen 7 Creatinine 0.97 Estimat Glomerular Filtration 74 Rate Random Glucose 114 Calcium Level 8.5 Total Bilirubin 0.8 Aspartate Amino Transf 10 (AST/SGOT) Alanine Aminotransferase 17 (ALT/SGPT) Alkaline Phosphatase 80 Total Protein 6.3 Albumin 2.9 White Blood Count 8.5 Red Blood Count 4.20 Hemoglobin 11.3 Hematocrit 34.4 Mean Corpuscular Volume 82.0 Mean Corpuscular Hemoglobin 26.8 Mean Corpuscular Hemoglobin 32.7 Concent Red Cell Distribution Width 16.7 Platelet Count 277 Mean Platelet Volume 8.2 Neutrophils (%) (Auto) 69.9 Lymphocytes (%) (Auto) 16.2 Monocytes (%) (Auto) 9.6 Eosinophils (%) (Auto) 3.5 Basophils (%) (Auto) 0.8 Neutrophils # (Auto) 5.9 Lymphocytes # (Auto) 1.4 Monocytes # (Auto) 0.8 Eosinophils # (Auto) 0.3 Basophils # (Auto) 0.1 CBC Comment DIFF FINAL Differential Comment Date/Time Procedure Status Source Growth 07/26/16 15:45 Gram Stain - Final Resulted Sputum Expectorated Sputum 07/26/16 15:45 Sputum Culture Resulted Sputum Expectorated Sputum Pending 07/22/16 11:50 Aerobic Blood Culture - Preliminary Resulted Blood Peripheral NO GROWTH IN 4 DAYS 07/22/16 11:50 Anaerobic Blood Culture - Preliminary Resulted Blood Peripheral NO GROWTH IN 4 DAYS 07/22/16 11:45 Urine Culture - Final Complete Urine Clean Catch Ashleigh Tropicalis Physical Exam Physical Exam GENERAL: This is a well-developed, elderly male who appears to be in no acute distress. He is awake, eyes open, attempting to answer simple questions HEAD: Normocephalic without any lesion or mass noted. Facial features appear symmetric. OROPHARYNGEAL: Oropharynx without erythema or edema. NECK: Supple. Trachea midline without deviation. CARDIAC: Regular rhythm, regular rate, S1 and S2 are heard. LUNGS: Decreased to auscultation mild at bases. No wheeze, occasional rhonchi and thick sputum ABDOMEN: Soft, nontender, taut. Bowel sounds active EXTREMITIES: no edema. Pulses equal bilateral. NEUROLOGICAL: Patient mood and affect are appropriate. alert orientation as above normal power and tone of extremities SKIN:Warm and moist A/P Assessment and Plan (1) Altered mental status, unspecified (2) UTI (3) BPH (benign prostatic hyperplasia) (4) NPH (normal pressure hydrocephalus) (5) Diabetes (6) Frequent falls (7) Hyperlipidemia (8) Hypertension (9) Acute kidney injury (10) Failure of outpatient treatment (11) Chronic indwelling Anaya catheter Fever resolved , coughing up some thick sputum this morning when working with physical therapy We will culture sputum if he coughs up anything else. labs reviewed, mild anemia stable Recurrent UTI, has chronic indwelling catheter, Anaya was changed on 07/21/2016. on diflucan Consult infectious disease for antibiotic management, appreciate input Encouraged patient to cough and take deep breaths We'll maintain Anaya catheter due to urinary retention and according to the record stone blockages Anemia, stable , probable secondary to chronic disease, stable Altered mental status, probable secondary to UTI, but has continues after aggressive treatment. Neurology consult for their expert opinion. Recommends to keep off of antipsychotic meds and NSX to drain more fluid Neurosurgery consult for shunt review again. Add Sinemet, check BP standing, patient struggling with standing and mobility. See note. Physical therapy, the patient is unable to stand or support his weight. Will encouraged to be out of bed in chair Acute renal injury, possibly secondary to dehydration, resolved IV hydration constipation will give miralax Type 2 diabetes Accu-Cheks before meals and at bedtime with insulin therapy SCDs for DVT prophylaxis dw rn dw pt meds reviewed cont current managment will follow Discussed With: Nurse, Family (no family present) Radhames Greenwood MD July 27, 2016 10:53
[2016-07-27] MEDS: POLYETHYLENE GLYCOL 17 GM PKG PO SCH (12:03)
--- NOTE | 2016-07-27 12:23 | HHI.IDPN ---
Note Infectious Disease Note Patient is very alert but not oriented. Temp lower. now afebrile. Says he feels fine. Denies chills. SOB, Abdominal pain. Sputum culture pending. Patient was brought to the emergency department by his family because of altered mental status. The patient reportedly was having nausea and vomiting and cough and his mental status was altered. PAST MEDICAL HISTORY 1. Hypertension. 2. Diabetes mellitus, type 2. 3. Benign prostatic hypertrophy. 4. Kidney stone. 5. History of seizure disorder. 6. Hyperlipidemia. 7. COPD. 8. Appendectomy. 9. Hernia repair. 10.The patient has a history of Anaya catheter which was changed on 07/21/2016. ALLERGIES No known drug allergies. ANTIBIOTICS: Diflucan. OBJECTIVE: Vital Signs Date Time Temp Pulse Resp B/P Pulse Ox O2 Delivery O2 Flow Rate FiO2 07/27/16 11:59 98.1 88 19 138/70 98 07/27/16 08:00 98.1 86 18 109/51 95 07/27/16 04:00 98.1 88 18 132/63 98 122/66 114/53 07/27/16 00:00 98.1 76 20 140/60 97 07/26/16 20:00 97.6 83 18 123/58 96 07/26/16 16:00 97.3 86 14 103/54 94 07/26/16 07/26/16 07/27/16 15:00 23:00 07:00 Intake Total 1111 ml 925 ml 869 ml Output Total 1300 ml 1100 ml 500 ml Balance -189 ml -175 ml 369 ml Intake Oral 360 ml 120 ml 120 ml IV Total 751 ml 805 ml 749 ml Output Urine Total 1300 ml 1100 ml 500 ml # Bowel Movements 0 0 Laboratory Tests Test 07/25/16 07/27/16 19:35 04:37 Erythrocyte Sedimentation Rate 11 mm/hr White Blood Count 8.5 TH/MM3 Red Blood Count 4.20 MIL/MM3 Hemoglobin 11.3 GM/DL Hematocrit 34.4 % Mean Corpuscular Volume 82.0 FL Mean Corpuscular Hemoglobin 26.8 PG Mean Corpuscular Hemoglobin 32.7 % Concent Red Cell Distribution Width 16.7 % Platelet Count 277 TH/MM3 Mean Platelet Volume 8.2 FL Neutrophils (%) (Auto) 69.9 % Lymphocytes (%) (Auto) 16.2 % Monocytes (%) (Auto) 9.6 % Eosinophils (%) (Auto) 3.5 % Basophils (%) (Auto) 0.8 % Neutrophils # (Auto) 5.9 TH/MM3 Lymphocytes # (Auto) 1.4 TH/MM3 Monocytes # (Auto) 0.8 TH/MM3 Eosinophils # (Auto) 0.3 TH/MM3 Basophils # (Auto) 0.1 TH/MM3 CBC Comment DIFF FINAL Differential Comment Laboratory Tests Test 07/25/16 07/27/16 19:35 04:35 Vitamin B12 Level 375 PG/ML Sodium Level 137 MEQ/L Potassium Level 3.7 MEQ/L Chloride Level 102 MEQ/L Carbon Dioxide Level 27.7 MEQ/L Anion Gap 7 MEQ/L Blood Urea Nitrogen 7 MG/DL Creatinine 0.97 MG/DL Estimat Glomerular Filtration 74 ML/MIN Rate Random Glucose 114 MG/DL Calcium Level 8.5 MG/DL Total Bilirubin 0.8 MG/DL Aspartate Amino Transf 10 U/L (AST/SGOT) Alanine Aminotransferase 17 U/L (ALT/SGPT) Alkaline Phosphatase 80 U/L Total Protein 6.3 GM/DL Albumin 2.9 GM/DL Microbiology Date/Time Procedure Status Source Growth 07/26/16 15:45 Gram Stain - Final Resulted Sputum Expectorated Sputum 07/26/16 15:45 Sputum Culture Resulted Sputum Expectorated Sputum Pending PHYSICAL EXAMINATION GENERAL: No acute distress. HEENT: Head is atraumatic. Extraocular movements grossly intact. Pupils reactive to light. No icterus. Oropharynx no visible lesions. NECK: Supple without adenopathy. LUNGS: Clear breath sounds - diminished. HEART: Regular rate and rhythm without murmurs, rubs or gallops. ABDOMEN: Bowel sounds present. Flat, soft, nontender. EXTREMITIES: No clubbing, cyanosis or edema. Vitiligo skin changes of the hands. NEUROLOGIC: Awake and alert. PSYCHIATRIC: Calm and is cooperative. IMPRESSION 1. Urinary tract infection. neetu. 2. Altered mental status, probably secondary to infection versus hydrocephalus. Neurology following also. 3. Fever. ? PNA. ? aspiration. Sputum culture pending. RECOMMENDATIONS 1. Continue Fluconazole for yeast in the urine. 2. monitor sputum culture. Antibiotics may need to be started if positive. 3. Monitor temperatures. Ruddy Metz MD July 27, 2016 12:23
[2016-07-28] MEDS: RESP: ALBUTEROL 2.5 MG/IPRATROPIUM 0.5 MG NEB (SCH) NEB ×3 (00:45→16:27)
[2016-07-28] MEDS: SODIUM CHLOR 0.9% 1000 ML INJ 1,000 ML IV SCH ×3 (01:43→15:23)
[2016-07-28 05:00] VITALS: BP 147/71; PULSE 77; RESP 18; TEMP 96.5; O2SAT 97
[2016-07-28] MEDS: CARBIDOPA/LEVODOPA 25 MG/100 MG TAB PO SCH ×3 (06:27→17:34)
[2016-07-28] MEDS: INSULIN ASPART SUPPLEMENTAL SCALE SQ SCH ×4 (06:38→21:00)
--- NOTE | 2016-07-28 07:46 | HHI.PR ---
Objective Vital Signs Date Time Temp Pulse Resp B/P Pulse Ox O2 Delivery O2 Flow Rate FiO2 07/28/16 05:00 96.5 77 18 147/71 97 07/27/16 23:31 97.6 91 18 124/77 98 07/27/16 20:00 96.8 118 19 143/74 97 07/27/16 16:00 97.5 98 17 117/65 99 07/27/16 11:59 98.1 88 19 138/70 98 07/27/16 08:00 98.1 86 18 109/51 95 I/O 07/27/16 07/27/16 07/27/16 07/28/16 07/28/16 07/28/16 07:00 15:00 23:00 07:00 15:00 23:00 Intake Total 869 ml 1280 ml 746 ml 844 ml Output Total 500 ml 750 ml 300 ml 300 ml Balance 369 ml 530 ml 446 ml 544 ml Intake Oral 120 ml 480 ml 240 ml 120 ml IV Total 749 ml 800 ml 506 ml 724 ml Output Urine Total 500 ml 750 ml 300 ml 300 ml # Bowel Movements 0 0 0 0 Result Diagram: 07/27/16 0437 07/27/16 0435 Objective Remarks awake alert moves all well confused Assessment and Plan Assessment and Plan imp will try sinemet check standing bp nl PT walking some better and will have nusu adjust shunt to take off more fluid TODAY PLAN IS TO HAVE PT WALK HIM AFTER SINEMET AND ADJUST SHUNT TO TAKE MORE FLUID OFF AND SEE IF WE CAN GET HIM WALK BETTER still trying to get ahold of nusu for this sleep regiment as has not slept in 2 days dc provigil for now Aston Nichols MD July 28, 2016 07:46
[2016-07-28 08:00] VITALS: BP 157/78; PULSE 97; RESP 18; TEMP 98.3; O2SAT 96
[2016-07-28] MEDS: LISINOPRIL 5 MG TAB PO SCH (08:55)
[2016-07-28] MEDS: SODIUM CHLORIDE 0.9% FLUSH 10 ML FLUSH IV FLUSH SCH ×2 (08:56→21:00)
[2016-07-28] MEDS: PRAVASTATIN SOD 20 MG TAB PO SCH (08:56)
[2016-07-28] MEDS: POLYETHYLENE GLYCOL 17 GM PKG PO SCH (08:56)
[2016-07-28] MEDS: MAGNESIUM OXIDE 400 MG TAB PO SCH (08:56)
[2016-07-28] MEDS: METOPROLOL TARTRATE 25 MG TAB PO SCH ×2 (08:56→21:05)
[2016-07-28] MEDS: FLUCONAZOLE 100 MG TAB PO SCH (08:56)
[2016-07-28] MEDS: VENLAFAXINE HCL XR 75 MG CAP PO SCH (08:56)
[2016-07-28] MEDS: SILVER SULFADIAZINE 1% CR 50 GM JAR TOPICAL SCH (09:00)
--- NOTE | 2016-07-28 10:30 | HHI.PR ---
Subjective Remarks Resting in bed, alert, talkative, pleasant alert oriented to person today knows he is in a hospital but don't know the name of hospital is confused about time and events. He knows president has wright hair Appetite fair No more fever not offering any complaint As per RN no bowel movement from prostatitis ROS for 12 point system is unremarkable Objective Objective Results - Vital Signs Date Time Temp Pulse Resp B/P Pulse Ox O2 Delivery O2 Flow Rate FiO2 07/28/16 08:00 98.3 97 18 157/78 96 07/28/16 05:00 96.5 77 18 147/71 97 07/27/16 23:31 97.6 91 18 124/77 98 07/27/16 20:00 96.8 118 19 143/74 97 07/27/16 16:00 97.5 98 17 117/65 99 07/27/16 11:59 98.1 88 19 138/70 98 I/O 07/27/16 07/27/16 07/27/16 07/28/16 07/28/16 07/28/16 07:00 15:00 23:00 07:00 15:00 23:00 Intake Total 869 ml 1280 ml 746 ml 844 ml Output Total 500 ml 750 ml 300 ml 300 ml Balance 369 ml 530 ml 446 ml 544 ml Intake Oral 120 ml 480 ml 240 ml 120 ml IV Total 749 ml 800 ml 506 ml 724 ml Output Urine Total 500 ml 750 ml 300 ml 300 ml # Bowel Movements 0 0 0 0 Result Diagram: 07/27/16 0437 07/27/16 0435 Imaging Last Impressions Head CT 07/22/16 1141 Signed Impressions: Service Date/Time: July 13:02 - CONCLUSION: 1. No acute intercranial abnormality. 2. The ventriculostomy shunt is in good position. Sudhakar Marrufo MD Chest X-Ray 07/22/16 1141 Signed Impressions: Service Date/Time: July 11:57 - CONCLUSION: No acute disease. Karsten Bledsoe Jr., MD Shunt Study (Imaging) 07/22/16 0000 Signed Impressions: Service Date/Time: July 13:38 - CONCLUSION: Shunt appears intact. Valve set to 120 mm of water. Rick Kwok MD Other Results Date/Time Procedure Status Source Growth 07/26/16 15:45 Gram Stain - Final Resulted Sputum Expectorated Sputum 07/26/16 15:45 Sputum Culture - Preliminary Resulted Sputum Expectorated Sputum HEAVY GROWTH NORMAL RESPIRATORY MARSHALL... Physical Exam Physical Exam GENERAL: This is a well-developed, elderly male who appears to be in no acute distress. He is awake, eyes open, attempting to answer simple questions HEAD: Normocephalic without any lesion or mass noted. Facial features appear symmetric. OROPHARYNGEAL: Oropharynx without erythema or edema. NECK: Supple. Trachea midline without deviation. CARDIAC: Regular rhythm, regular rate, S1 and S2 are heard. LUNGS: Decreased to auscultation mild at bases. No wheeze, occasional rhonchi and thick sputum ABDOMEN: Soft, nontender, taut. Bowel sounds active. Positive left-sided large inguinal hernia seems reducible EXTREMITIES: no edema. Pulses equal bilateral. NEUROLOGICAL: Patient mood and affect are appropriate. alert orientation as above normal power and tone of extremities SKIN:Warm and moist A/P Assessment and Plan (1) Altered mental status, unspecified (2) UTI (3) BPH (benign prostatic hyperplasia) (4) NPH (normal pressure hydrocephalus) (5) Diabetes (6) Frequent falls (7) Hyperlipidemia (8) Hypertension (9) Acute kidney injury (10) Failure of outpatient treatment (11) Chronic indwelling Anaya catheter Fever resolved , Constipation nurse give him MiraLAX. labs reviewed, mild anemia stable Recurrent UTI, has chronic indwelling catheter, Anaya was changed on 07/21/2016. Urine culture report seen on [facility] Consult infectious disease for antibiotic management, appreciate input Encouraged patient to cough and take deep breaths We'll maintain Anaya catheter due to urinary retention and according to the record stone blockages Large inguinal hernia will get surgical consult Anemia, stable , probable secondary to chronic disease, stable Altered mental status, probable secondary to UTI, but has continues after aggressive treatment. Neurology consult for their expert opinion. Recommends to keep off of antipsychotic meds and NSX to drain more fluid . Discussed with him today Neurosurgery input for shunt review again. Add Sinemet, check BP standing, patient struggling with standing and mobility. See note. Discussed with neurosurgeon today he will probably drain some fluid and adjust shunt Physical therapy, the patient is unable to stand or support his weight. Will encouraged to be out of bed in chair Acute renal injury, possibly secondary to dehydration, resolved IV hydration constipation will give miralax Type 2 diabetes Accu-Cheks before meals and at bedtime with insulin therapy SCDs for DVT prophylaxis dw rn dw pt Discussed With: Nurse, Family (no family present) Radhames Greenwood MD July 28, 2016 10:30
[2016-07-28 12:00] VITALS: BP 157/74; PULSE 78; RESP 16; TEMP 96.8; O2SAT 96
--- NOTE | 2016-07-28 15:23 | HHI.IDPN ---
Note Infectious Disease Note Patient is up in bedside chair. Awake and alert. No complaints. Afebrile. Sputum culture has normal kaila. Patient was brought to the emergency department by his family because of altered mental status. The patient reportedly was having nausea and vomiting and cough and his mental status was altered. PAST MEDICAL HISTORY 1. Hypertension. 2. Diabetes mellitus, type 2. 3. Benign prostatic hypertrophy. 4. Kidney stone. 5. History of seizure disorder. 6. Hyperlipidemia. 7. COPD. 8. Appendectomy. 9. Hernia repair. 10.The patient has a history of Anaya catheter which was changed on 07/21/2016. ALLERGIES No known drug allergies. ANTIBIOTICS: Diflucan. OBJECTIVE: Vital Signs Date Time Temp Pulse Resp B/P Pulse Ox O2 Delivery O2 Flow Rate FiO2 07/28/16 12:00 96.8 78 16 157/74 96 07/28/16 08:00 98.3 97 18 157/78 96 07/28/16 05:00 96.5 77 18 147/71 97 07/27/16 23:31 97.6 91 18 124/77 98 07/27/16 20:00 96.8 118 19 143/74 97 07/27/16 16:00 97.5 98 17 117/65 99 07/27/16 07/27/16 07/28/16 15:00 23:00 07:00 Intake Total 1280 ml 746 ml 844 ml Output Total 750 ml 300 ml 300 ml Balance 530 ml 446 ml 544 ml Intake Oral 480 ml 240 ml 120 ml IV Total 800 ml 506 ml 724 ml Output Urine Total 750 ml 300 ml 300 ml # Bowel Movements 0 0 0 Laboratory Tests Test 07/27/16 04:37 White Blood Count 8.5 TH/MM3 Red Blood Count 4.20 MIL/MM3 Hemoglobin 11.3 GM/DL Hematocrit 34.4 % Mean Corpuscular Volume 82.0 FL Mean Corpuscular Hemoglobin 26.8 PG Mean Corpuscular Hemoglobin 32.7 % Concent Red Cell Distribution Width 16.7 % Platelet Count 277 TH/MM3 Mean Platelet Volume 8.2 FL Neutrophils (%) (Auto) 69.9 % Lymphocytes (%) (Auto) 16.2 % Monocytes (%) (Auto) 9.6 % Eosinophils (%) (Auto) 3.5 % Basophils (%) (Auto) 0.8 % Neutrophils # (Auto) 5.9 TH/MM3 Lymphocytes # (Auto) 1.4 TH/MM3 Monocytes # (Auto) 0.8 TH/MM3 Eosinophils # (Auto) 0.3 TH/MM3 Basophils # (Auto) 0.1 TH/MM3 CBC Comment DIFF FINAL Differential Comment Laboratory Tests Test 07/27/16 04:35 Sodium Level 137 MEQ/L Potassium Level 3.7 MEQ/L Chloride Level 102 MEQ/L Carbon Dioxide Level 27.7 MEQ/L Anion Gap 7 MEQ/L Blood Urea Nitrogen 7 MG/DL Creatinine 0.97 MG/DL Estimat Glomerular Filtration 74 ML/MIN Rate Random Glucose 114 MG/DL Calcium Level 8.5 MG/DL Total Bilirubin 0.8 MG/DL Aspartate Amino Transf 10 U/L (AST/SGOT) Alanine Aminotransferase 17 U/L (ALT/SGPT) Alkaline Phosphatase 80 U/L Total Protein 6.3 GM/DL Albumin 2.9 GM/DL Microbiology Date/Time Procedure Status Source Growth 07/26/16 15:45 Gram Stain - Final Complete Sputum Expectorated Sputum 07/26/16 15:45 Sputum Culture - Final Complete Sputum Expectorated Sputum HEAVY GROWTH NORMAL RESPIRATORY KAILA PHYSICAL EXAMINATION GENERAL: No acute distress. HEENT: No icterus. Oropharynx no visible lesions. NECK: Supple without adenopathy. LUNGS: Clear decreased breath sounds. HEART: Regular rate and rhythm without murmurs, rubs or gallops. ABDOMEN: Bowel sounds present. Flat, soft, nontender. EXTREMITIES: No clubbing, cyanosis or edema. Vitiligo skin changes of the hands. NEUROLOGIC: Awake and alert. PSYCHIATRIC: Calm and cooperative. IMPRESSION 1. Urinary tract infection. neetu. 2. Altered mental status, probably secondary to infection versus hydrocephalus. Neurology following also. 3. Fever. ? PNA. ? aspiration. Temp improved. Appears stable. RECOMMENDATIONS Discontinue antibiotics. Monitor temps I will sign off. Please reconsult if necessary. Ruddy Metz MD July 28, 2016 15:23
[2016-07-28 16:00] VITALS: BP 187/84; PULSE 83; RESP 16; TEMP 97.3; O2SAT 98
--- NOTE | 2016-07-28 17:40 | HHI.NSPN ---
(Tristen Hutchinson) Note Status Status: Progress Note (Tristen Hutchinson) Interval History Interval History 07/22: 81-year-old male brought to the emergency room today with altered mental status. No recent fall. He has a previous emergency room evaluation for altered mental status in 2016. Also recent admission in June 2016 for UTI with sepsis. Patient was discharged on antibiotic therapy. He presents with complaints of approximately 1 week of generalized increased lethargy, mild confusion, decreased appetite and nausea and vomiting. Positive nonproductive cough. No definite fevers or chills. No diarrhea. No complaint of significant headache, dizziness, vertigo. 07/26: Patient having nausea when seen. Therapy reports patient had a large bilious emesis after being sat up on the side of the bed prior to being seen. He denied any headache or dizziness. 07/28: Patient asleep but awakens to verbal stimuli. He had no complaints when seen. Infectious Disease signed off today. Neurology & Hospitalist are asking that his shunt pressure be adjusted downward to see if he will be able to ambulate better. (Tristen Hutchinson) Labs, Micro, & Vital Signs Results Allergies Coded Allergies Type Severity Reaction Last Updated Verified *MDRO Multi-Drug Resistant Organism Adverse Reaction Unknown 07/09/16 Yes /// 06:00 18:00 06:00 18:00 06:00 18:00 Intake Total 995 ml 1111 ml 1045 ml 2029 ml 1470 ml 180 ml Output Total 725 ml 1300 ml 1600 ml 750 ml 300 ml 1450 ml Balance 270 ml -189 ml -555 ml 1279 ml 1170 ml -1270 ml Intake Oral 240 ml 360 ml 240 ml 480 ml 240 ml 180 ml IV Total 755 ml 751 ml 805 ml 1549 ml 1230 ml Output Urine Total 725 ml 1300 ml 1600 ml 750 ml 300 ml 1450 ml # Bowel Movements 0 0 0 0 0 Laboratory Tests Test 07/25/16 07/27/16 07/27/16 19:35 04:35 04:37 Erythrocyte Sedimentation Rate 11 mm/hr Vitamin B12 Level 375 PG/ML Thiamine Level 136 nmol/L Methylmalonic Acid 0.39 nmol/mL Sodium Level 137 MEQ/L Potassium Level 3.7 MEQ/L Chloride Level 102 MEQ/L Carbon Dioxide Level 27.7 MEQ/L Anion Gap 7 MEQ/L Blood Urea Nitrogen 7 MG/DL Creatinine 0.97 MG/DL Estimat Glomerular Filtration 74 ML/MIN Rate Random Glucose 114 MG/DL Calcium Level 8.5 MG/DL Total Bilirubin 0.8 MG/DL Aspartate Amino Transf 10 U/L (AST/SGOT) Alanine Aminotransferase 17 U/L (ALT/SGPT) Alkaline Phosphatase 80 U/L Total Protein 6.3 GM/DL Albumin 2.9 GM/DL White Blood Count 8.5 TH/MM3 Red Blood Count 4.20 MIL/MM3 Hemoglobin 11.3 GM/DL Hematocrit 34.4 % Mean Corpuscular Volume 82.0 FL Mean Corpuscular Hemoglobin 26.8 PG Mean Corpuscular Hemoglobin 32.7 % Concent Red Cell Distribution Width 16.7 % Platelet Count 277 TH/MM3 Mean Platelet Volume 8.2 FL Neutrophils (%) (Auto) 69.9 % Lymphocytes (%) (Auto) 16.2 % Monocytes (%) (Auto) 9.6 % Eosinophils (%) (Auto) 3.5 % Basophils (%) (Auto) 0.8 % Neutrophils # (Auto) 5.9 TH/MM3 Lymphocytes # (Auto) 1.4 TH/MM3 Monocytes # (Auto) 0.8 TH/MM3 Eosinophils # (Auto) 0.3 TH/MM3 Basophils # (Auto) 0.1 TH/MM3 CBC Comment DIFF FINAL Differential Comment Constitutional Vital Signs Date Time Temp Pulse Resp B/P Pulse Ox O2 Delivery O2 Flow Rate FiO2 07/28/16 16:00 97.3 83 16 187/84 98 07/28/16 12:00 96.8 78 16 157/74 96 07/28/16 08:00 98.3 97 18 157/78 96 07/28/16 05:00 96.5 77 18 147/71 97 07/27/16 23:31 97.6 91 18 124/77 98 07/27/16 20:00 96.8 118 19 143/74 97 07/28/16 07:00 Intake Total 2870 ml Output Total 1350 ml Balance 1520 ml (Tristen Hutchinson) Review of Systems/Exam ROS Constitutional: Patient denies any fever or chills. Respirataory: Patient denies any shortness of breath or productive cough. Cardiac. Patient denies any chest pain, palpitations or irregular heart beat. GI: Patient denies any abdominal pain, nausea, vomiting or bowel incontinence. : Patient has a Anaya catheter in place. MS: Patient states that his legs feel weak. Neuro: He denies any headache, dizziness, numbness,tingling or feeling off balance. Exam General: Well-developed, well-nourished, thin male who appears his stated age. HEENT: Normocephalic, atraumatic. Resp: CTAB w/o W/R/R, equal excursion, non-laboured, on RA. CV: S1S2 w/RRR w/o M/G/R, radial & pedal pulses 2+ bilaterally, cap refill < 2 sec, no pedal edema. GI: Abdomen, soft, non-tender, positive bowel sounds. : Anaya catheter to BSD w/clear yellow urine. MS: ROCHA, extremities normal, no deformities or discolouration. Neuro: Awake & alert, oriented to person, being in a hospital but not to which hospital or time. When asked to name the president he went off on a tangent. Sensation grossly intact to light touch to all extremities. Motor strength to all major flexion & extension muscle groups 5/5. (Tristen Hutchinson) Medications Current Medications Current Medications Medications (Trade) Dose Ordered Sig/Robert Route Start Time Stop Time Status Last Admin (Lopressor) 12.5 mg BID PO 07/22/16 21:00 07/28/16 08:56 (Silvadene 1% Cream (50 Gm)) 1 applic DAILY TOPICAL 07/23/16 09:00 07/27/16 08:46 (Effexor Xr) 150 mg DAILY PO 07/23/16 09:00 07/28/16 08:56 (Prinivil) 2.5 mg DAILY PO 07/23/16 09:00 07/28/16 08:55 (Mag-Ox) 400 mg DAILY PO 07/23/16 09:00 07/28/16 08:56 Pravastatin Sodium 20 mg 20 mg DAILY PO 07/23/16 09:00 07/28/16 08:56 (NS 1000 ml Inj) 1,000 ml @ 100 mls/hr Q10H IV 07/22/16 15:43 07/28/16 15:23 (NS Flush) 2 ml UNSCH PRN IV FLUSH 07/22/16 15:45 (NS Flush) 2 ml BID IV FLUSH 07/22/16 21:00 07/28/16 08:56 (Tylenol) 650 mg Q4H PRN PO 07/22/16 15:45 07/25/16 21:03 (Zofran Inj) 4 mg Q6H PRN IVP 07/22/16 15:45 07/23/16 06:39 (Narcan Inj) 0.4 mg UNSCH PRN IV 07/22/16 15:45 (Pill Splitter) 1 ea UNSCH PRN OTHER 07/22/16 16:00 07/27/16 08:46 (D50w (Vial) Inj) 25 ml UNSCH PRN IV PUSH 07/22/16 15:45 (Glucagon Inj) 1 mg UNSCH PRN OTHER 07/22/16 15:45 (Sinemet 25-100 Mg) 1 tab DAILY@06,12,16 PO 07/26/16 08:00 07/28/16 13:09 (Miralax) 17 gm DAILY PO 07/27/16 11:15 07/28/16 08:56 (risperDAL) 0.25 mg DAILY@20 PRN PO 07/28/16 20:00 (Restoril) 15 mg HS PRN PO 07/28/16 21:00 (Tristen Hutchinson) Medical Decision Making MDM Remarks Impression: 1. Altered mental status, uncertain of baseline. A. Neurology feels patient is at baseline 2. UTI 3. History of NPH. Status post ventriculoperitoneal shunt. No definite evidence of shunt malfunction or infection at present. Hyponatremia, resolved T max 98.3 Infectious Disease has d/c'd all abx and signed off Patient remains on contact precautions (Tristen Hutchinson) Plan Plan Remarks Plan of care discussed with patient. Recommend monitoring of sodium and correct hyponatremia if present. Will decrease [employer]NA[employer] RESPONSIBILITY shunt pressure (Tristen Hutchinson) Attending Statement I have personally seen and examined the patient on the date of this note. Pertinent documentation and study results have been reviewed by the undersigned. I have personally developed the treatment plan and performed medical decision making. Agree with findings, exam, and treatment plan as noted above. Neurology notes reviewed Discussed with medicine service today Last shunt series indicates shunt setting at approximately 120 mm water pressure Plan to decrease shunt setting to 90 mm water pressure and continue to observe for any changes in mental status and gait. (Darrel Shah MD) Tristen Hutchinson July 28, 2016 17:40 Darrel Shah MD July 28, 2016 21:19
[2016-07-28] MEDS ORDERED: POLYETHYLENE GLYCOL 17 GM PKG PO ONE (18:00)
[2016-07-28 20:00] VITALS: BP 146/74; PULSE 89; RESP 19; TEMP 96.9; O2SAT 98
[2016-07-28] MEDS ORDERED: risperiDONE 0.25 MG TAB PO PRN (20:00)
[2016-07-28] MEDS ORDERED: TEMAZEPAM 15 MG CAP PO PRN (21:00)
--- NOTE | 2016-07-28 22:31 | MB ---
cc: ELAINE NELSON M.D. DATE OF CONSULTATION: 07/28/2016 REASON FOR CONSULTATION Large left inguinal hernia. HISTORY OF PRESENT ILLNESS The patient is an 81-year-old male with a history of normal pressure hydrocephalous with multiple other medical problems who came in to the ED for change in mental status. He is going to undergo consideration for shunt revision tomorrow. I have been asked to see the patient for his large inguinal hernia. PAST MEDICAL HISTORY Significant for - 1. Hypertension. 2. History of BPH. 3. History kidney stones. 4. 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 5. Hyperlipidemia. 6. COPD. 7. Hyponatremia currently. 8. Uem-[id number]-qtnaehswx diabetes. PAST SURGICAL HISTORY 1. Appendectomy 50 years ago. 2. Hernia repair. 3. Indwelling Anaya catheter placed in September of 2015. REVIEW OF SYSTEMS Review of systems is not obtainable as the patient is able to only intermittently converse. He does respond to commands. PHYSICAL EXAMINATION VITAL SIGNS: BP 187/84, pulse 83, respirations 16, temperature 97.3, 98% saturation on room air. HEENT: Sclerae anicteric. CHEST: Chest is clear to auscultation. CARDIAC: Cardiac exam reveals regular rate and rhythm. ABDOMEN: Abdomen is soft and nontender. There is a large left inguinal hernia that is partially reducible. I am not able to completely reduce it but I can reduce three-fourths of the hernia back into the abdominal cavity. There is no tenderness during this reduction process. Pulses are intact. NEUROLOGIC EXAM: Cranial nerves II through XII are grossly intact. The patient is confused and is unable to recall details or repeat back with any memory. LABORATORIES Laboratory values demonstrate WBCs of 8.5. Chemistries demonstrate sodium of 137, BUN and creatinine are 7 and 0.97. Liver function tests are essentially within normal limits. ASSESSMENT A large left inguinal hernia with normal pressure hydrocephalus and confusion. The hernia does not appear to be causing any acute problems at this point; it has been reported that he has not had a bowel movement in the last two days. However, he has had a bowel movement a few days ago. PLAN A large inguinal hernia with multiple other medical problems including current problem with confusion with normal pressure hydrocephalus. Shunt pressure is going to be adjusted tomorrow. We will await resolution of these problems before attempting to do anything with the patient's asymptomatic hernia. We will obtain plain films and if he has no air fluid levels, given his medical status, hernia repair is not indicated. If he develops an obstruction or has significant incarceration, he would be considered a candidate for surgery but not at the current time. We will follow intermittently with you while the patient is in the hospital. MD STEPHEN Mccormick/SUSIE /5:50 PM /10:05 PM
[2016-07-29] VITALS (8 sets, daily range): BP systolic 141–198; BP diastolic 7–91; PULSE 70–91; RESP 17–20; TEMP 96.7–98.2; O2SAT 93–98
[2016-07-29] MEDS: CARBIDOPA/LEVODOPA 25 MG/100 MG TAB PO SCH ×3 (06:32→16:12)
[2016-07-29] MEDS: INSULIN ASPART SUPPLEMENTAL SCALE SQ SCH ×4 (06:32→20:29)
--- NOTE | 2016-07-29 08:07 | HHI.PR ---
Objective Vital Signs Date Time Temp Pulse Resp B/P Pulse Ox O2 Delivery O2 Flow Rate FiO2 07/29/16 00:00 97.1 70 18 146/75 96 07/28/16 20:00 96.9 89 19 146/74 98 07/28/16 16:00 97.3 83 16 187/84 98 07/28/16 12:00 96.8 78 16 157/74 96 I/O 07/28/16 07/28/16 07/28/16 07/29/16 07/29/16 07/29/16 07:00 15:00 23:00 07:00 15:00 23:00 Intake Total 844 ml 1242 ml 360 ml 1703 ml Output Total 300 ml 1150 ml 500 ml 2000 ml Balance 544 ml 92 ml -140 ml -297 ml Intake Oral 120 ml 60 ml 360 ml 600 ml IV Total 724 ml 1182 ml 1103 ml Output Urine Total 300 ml 1150 ml 500 ml 2000 ml # Bowel Movements 0 0 0 Result Diagram: 07/27/16 0437 07/27/16 0435 Objective Remarks asleep Assessment and Plan Assessment and Plan imp will try sinemet check standing bp nl PT walking some better and will have nusu adjust shunt to take off more fluid TODAY PLAN IS TO HAVE PT WALK HIM AFTER SINEMET AND ADJUST SHUNT TO TAKE MORE FLUID OFF AND SEE IF WE CAN GET HIM WALK BETTER still trying to get ahold of [facility] for this sleep regiment as has not slept in 2 days dc provigil for now 07/29/16 slept all night w/o meds and still asleep now [facility] to adjust shunt to 90 will see how does after this i will dw PT not ambulating well yest just stanidgn at walker and retropulsing may do better after sleep Aston Nichols MD July 29, 2016 08:07
[2016-07-29] MEDS: SODIUM CHLORIDE 0.9% FLUSH 10 ML FLUSH IV FLUSH SCH ×2 (09:00→20:28)
[2016-07-29] MEDS: RESP: ALBUTEROL 2.5 MG/IPRATROPIUM 0.5 MG NEB (SCH) NEB (09:08)
[2016-07-29] MEDS: MAGNESIUM OXIDE 400 MG TAB PO SCH (09:56)
[2016-07-29] MEDS: PRAVASTATIN SOD 20 MG TAB PO SCH (09:57)
[2016-07-29] MEDS: METOPROLOL TARTRATE 25 MG TAB PO SCH ×2 (09:57→20:26)
[2016-07-29] MEDS: LISINOPRIL 5 MG TAB PO SCH (09:57)
[2016-07-29] MEDS: POLYETHYLENE GLYCOL 17 GM PKG PO SCH (09:57)
[2016-07-29] MEDS: VENLAFAXINE HCL XR 75 MG CAP PO SCH (11:28)
[2016-07-29] MEDS: SODIUM CHLOR 0.9% 1000 ML INJ 1,000 ML IV SCH ×2 (12:28→21:25)
--- NOTE | 2016-07-29 13:41 | HHI.PR ---
Subjective Remarks Resting in bed, sleepy arousable somewhat confused and then sleep again. pleasant alert oriented to person today knows he is in a hospital but don't know the name of hospital is confused about time and events. He knows president has wright hair Appetite fair No more fever not offering any complaint As per RN no bowel movement from prostatitis ROS for 12 point system is unremarkable is at bedside Objective Objective Results - Vital Signs Date Time Temp Pulse Resp B/P Pulse Ox O2 Delivery O2 Flow Rate FiO2 07/29/16 12:00 98.2 74 17 156/74 95 07/29/16 08:00 96.7 86 18 157/85 96 07/29/16 00:00 97.1 70 18 146/75 96 07/28/16 20:00 96.9 89 19 146/74 98 07/28/16 16:00 97.3 83 16 187/84 98 I/O 07/28/16 07/28/16 07/28/16 07/29/16 07/29/16 07/29/16 07:00 15:00 23:00 07:00 15:00 23:00 Intake Total 844 ml 1242 ml 360 ml 1703 ml Output Total 300 ml 1150 ml 500 ml 2000 ml 1500 ml Balance 544 ml 92 ml -140 ml -297 ml -1500 ml Intake Oral 120 ml 60 ml 360 ml 600 ml IV Total 724 ml 1182 ml 1103 ml Output Urine Total 300 ml 1150 ml 500 ml 2000 ml 1500 ml # Bowel Movements 0 0 0 Result Diagram: 07/27/16 0437 07/27/16 0435 Imaging Last Impressions Head CT 07/22/16 1141 Signed Impressions: Service Date/Time: July 13:02 - CONCLUSION: 1. No acute intercranial abnormality. 2. The ventriculostomy shunt is in good position. Sudhakar Marrufo MD Chest X-Ray 07/22/16 1141 Signed Impressions: Service Date/Time: July 11:57 - CONCLUSION: No acute disease. Karsten Bledsoe Jr., MD Shunt Study (Imaging) 07/22/16 0000 Signed Impressions: Service Date/Time: July 13:38 - CONCLUSION: Shunt appears intact. Valve set to 120 mm of water. Rick Kwok MD Other Results Date/Time Procedure Status Source Growth 07/26/16 15:45 Gram Stain - Final Complete Sputum Expectorated Sputum 07/26/16 15:45 Sputum Culture - Final Complete Sputum Expectorated Sputum HEAVY GROWTH NORMAL RESPIRATORY [facility] Physical Exam Physical Exam GENERAL: This is a well-developed, elderly male who appears to be in no acute distress. He is awake, eyes open, attempting to answer simple questions HEAD: Normocephalic without any lesion or mass noted. Facial features appear symmetric. OROPHARYNGEAL: Oropharynx without erythema or edema. NECK: Supple. Trachea midline without deviation. CARDIAC: Regular rhythm, regular rate, S1 and S2 are heard. LUNGS: Decreased to auscultation mild at bases. No wheeze, no rhonchi ABDOMEN: Soft, nontender, taut. Bowel sounds active. Positive left-sided large inguinal hernia seems reducible EXTREMITIES: no edema. Pulses equal bilateral. NEUROLOGICAL: Patient mood and affect are appropriate. alert orientation as above normal power and tone of extremities SKIN:Warm and moist A/P Assessment and Plan (1) Altered mental status, unspecified (2) UTI (3) BPH (benign prostatic hyperplasia) (4) NPH (normal pressure hydrocephalus) (5) Diabetes (6) Frequent falls (7) Hyperlipidemia (8) Hypertension (9) Acute kidney injury (10) Failure of outpatient treatment (11) Chronic indwelling Anaya catheter Fever resolved , Constipation nurse give him MiraLAX. Plan for Dulcolax suppository labs reviewed Recurrent UTI, has chronic indwelling catheter, Anaya was changed on 07/21/2016. Urine culture report seen on diflucan Appreciate infectious disease input patient is off of antibiotic Appreciate surgical input Appreciate neurology input Appreciate neurosurgery input We'll maintain Anaya catheter due to urinary retention and according to the record, stone blockages Anemia, stable , probable secondary to chronic disease, stable Altered mental status, probable secondary NPH Neurology consult for their expert opinion. Recommends to keep off of antipsychotic meds and NSX to drain more fluid . Neurosurgery input for shunt review again. Add Sinemet, check BP standing, patient struggling with standing and mobility. See note. Physical therapy, the patient is unable to stand or support his weight. Will encouraged to be out of bed in chair Acute renal injury, possibly secondary to dehydration, resolved IV hydration constipation will give miralax . Plan for Dulcolax suppository Type 2 diabetes Accu-Cheks before meals and at bedtime with insulin therapy SCDs for DVT prophylaxis dw rn dw patient's at bedside Discussed With: Nurse, Family (no family present) Radhames Greenwood MD July 29, 2016 13:41
[2016-07-29] MEDS ORDERED: BISACODYL 10 MG SUPP RECTAL ONE (13:45)
[2016-07-30] MEDS: SODIUM CHLOR 0.9% 1000 ML INJ 1,000 ML IV SCH ×3 (03:43→21:15)
[2016-07-30] MEDS: CARBIDOPA/LEVODOPA 25 MG/100 MG TAB PO SCH ×3 (05:45→16:54)
[2016-07-30] MEDS: INSULIN ASPART SUPPLEMENTAL SCALE SQ SCH ×4 (07:00→20:09)
[2016-07-30 08:00] VITALS: BP 147/55; PULSE 86; RESP 17; TEMP 96.4; O2SAT 93
[2016-07-30] MEDS: POLYETHYLENE GLYCOL 17 GM PKG PO SCH (08:42)
[2016-07-30] MEDS: METOPROLOL TARTRATE 25 MG TAB PO SCH ×2 (08:42→21:14)
[2016-07-30] MEDS: LISINOPRIL 5 MG TAB PO SCH (08:42)
[2016-07-30] MEDS: PRAVASTATIN SOD 20 MG TAB PO SCH (08:42)
[2016-07-30] MEDS: VENLAFAXINE HCL XR 75 MG CAP PO SCH (08:42)
[2016-07-30] MEDS: MAGNESIUM OXIDE 400 MG TAB PO SCH (08:42)
[2016-07-30] MEDS: SODIUM CHLORIDE 0.9% FLUSH 10 ML FLUSH IV FLUSH SCH ×2 (08:43→21:00)
[2016-07-30] MEDS: SILVER SULFADIAZINE 1% CR 50 GM JAR TOPICAL SCH (08:47)
--- NOTE | 2016-07-30 09:01 | HHI.PR ---
Subjective Remarks awake [facility] Objective Vital Signs Date Time Temp Pulse Resp B/P Pulse Ox O2 Delivery O2 Flow Rate FiO2 07/30/16 08:00 96.4 86 17 147/55 93 07/29/16 23:05 98.0 77 20 142/7 97 07/29/16 21:45 76 20 141/69 97 07/29/16 21:30 77 20 175/84 97 07/29/16 20:00 97.5 91 18 198/91 93 07/29/16 16:00 98.1 85 17 156/74 98 07/29/16 12:00 98.2 74 17 156/74 95 I/O 07/29/16 07/29/16 07/29/16 07/30/16 07/30/16 07/30/16 07:00 15:00 23:00 07:00 15:00 23:00 Intake Total 1703 ml 0 ml 1582 ml 653 ml Output Total 2000 ml 1875 ml 500 ml 1600 ml Balance -297 ml -1875 ml 1082 ml -947 ml Intake Oral 600 ml 0 ml 120 ml 120 ml IV Total 1103 ml 1462 ml 533 ml Output Urine Total 2000 ml 1875 ml 500 ml 1600 ml # Bowel Movements 0 0 1 Result Diagram: 07/27/16 0437 07/27/16 0435 Objective Remarks academic assistant took a few small steps and less retropulsion i put him in chair Assessment and Plan Assessment and Plan imp will try sinemet check standing bp nl PT walking some better and will have nu adjust shunt to take off more fluid TODAY PLAN IS TO HAVE PT WALK HIM AFTER SINEMET AND ADJUST SHUNT TO TAKE MORE FLUID OFF AND SEE IF WE CAN GET HIM WALK BETTER still trying to get ahold of [facility] for this sleep regiment as has not slept in 2 days dc provigil for now 07/29/16 slept all night w/o meds and still asleep now [facility] to adjust shunt to 90 will see how does after this i will dw PT not ambulating well yest just stanidgn at walker and retropulsing may do better after sleep 07/30/16 doing better after good sleep walking better nusu unclear if they have adjusted shunt yet i do not see note cont PT Aston Nichols MD July 30, 2016 09:01
--- NOTE | 2016-07-30 10:56 | HHI.PR ---
Subjective Remarks Resting in a recliner, alert and awake. Oriented to place and person knows president. Doesn't know the date or month or year. Appetite fair No more fever not offering any complaint As per patient has to move his bowels now ROS for 10 point system is unremarkable No family at bedside Objective Objective Results - Vital Signs Date Time Temp Pulse Resp B/P Pulse Ox O2 Delivery O2 Flow Rate FiO2 07/30/16 08:00 96.4 86 17 147/55 93 07/29/16 23:05 98.0 77 20 142/7 97 07/29/16 21:45 76 20 141/69 97 07/29/16 21:30 77 20 175/84 97 07/29/16 20:00 97.5 91 18 198/91 93 07/29/16 16:00 98.1 85 17 156/74 98 07/29/16 12:00 98.2 74 17 156/74 95 I/O 07/29/16 07/29/16 07/29/16 07/30/16 07/30/16 07/30/16 07:00 15:00 23:00 07:00 15:00 23:00 Intake Total 1703 ml 0 ml 1582 ml 653 ml Output Total 2000 ml 1875 ml 500 ml 1600 ml Balance -297 ml -1875 ml 1082 ml -947 ml Intake Oral 600 ml 0 ml 120 ml 120 ml IV Total 1103 ml 1462 ml 533 ml Output Urine Total 2000 ml 1875 ml 500 ml 1600 ml # Bowel Movements 0 0 1 Result Diagram: 07/27/16 0437 07/27/16 0435 Imaging Last Impressions Head CT 07/22/16 1141 Signed Impressions: Service Date/Time: July 13:02 - CONCLUSION: 1. No acute intercranial abnormality. 2. The ventriculostomy shunt is in good position. Sudhakar Marrufo MD Chest X-Ray 07/22/16 1141 Signed Impressions: Service Date/Time: July 11:57 - CONCLUSION: No acute disease. Karsten Bledsoe Jr., MD Shunt Study (Imaging) 07/22/16 0000 Signed Impressions: Service Date/Time: July 13:38 - CONCLUSION: Shunt appears intact. Valve set to 120 mm of water. Rick Kwok MD Other Results Date/Time Procedure Status Source Growth 07/26/16 15:45 Gram Stain - Final Complete Sputum Expectorated Sputum 07/26/16 15:45 Sputum Culture - Final Complete Sputum Expectorated Sputum HEAVY GROWTH NORMAL RESPIRATORY [facility] Physical Exam Physical Exam GENERAL: This is a well-developed, elderly male who appears to be in no acute distress. HEAD: Normocephalic without any lesion or mass noted. Facial features appear symmetric. OROPHARYNGEAL: Oropharynx without erythema or edema. NECK: Supple. Trachea midline without deviation. CARDIAC: Regular rhythm, regular rate, S1 and S2 are heard. LUNGS: Decreased to auscultation mild at bases. No wheeze, no rhonchi ABDOMEN: Soft, nontender, taut. Bowel sounds active. Positive left-sided large inguinal hernia seems reducible EXTREMITIES: no edema. Pulses equal bilateral. NEUROLOGICAL: Patient mood and affect are appropriate. alert orientation as above normal power and tone of extremities SKIN:Warm and moist A/P Assessment and Plan (1) Altered mental status, unspecified (2) UTI (3) BPH (benign prostatic hyperplasia) (4) NPH (normal pressure hydrocephalus) (5) Diabetes (6) Frequent falls (7) Hyperlipidemia (8) Hypertension (9) Acute kidney injury (10) Failure of outpatient treatment (11) Chronic indwelling Anaya catheter Fever resolved , Constipation nurse give him MiraLAX. As the patient has to move his bowels now Recurrent UTI, has chronic indwelling catheter, Anaya was changed on 07/21/2016. [facility] Appreciate infectious disease input patient is off of antibiotic Appreciate surgical input. Discussed with Dr. Renteria yesterday Appreciate neurology input. Discussed with neurologist today Appreciate neurosurgery input. Discussed with neurosurgeon this morning We'll maintain Anaya catheter due to urinary retention and according to the record, stone blockages Anemia, stable , probable secondary to chronic disease, stable Altered mental status, probable secondary NPH Neurology consult for their expert opinion. Recommends to keep off of antipsychotic meds and NSX to drain more fluid . Neurosurgery input for shunt review again. Add Sinemet, check BP standing, patient struggling with standing and mobility. As per RN neurosurgery did adjust shunt not too long ago Physical therapy, the patient is unable to stand or support his weight. Will encouraged to be out of bed in chair Acute renal injury, possibly secondary to dehydration, resolved constipation will give miralax . Plan for Dulcolax suppository Type 2 diabetes Accu-Cheks before meals and at bedtime with insulin therapy SCDs for DVT prophylaxis dw rn dw patient Discussed With: Nurse, Family (no family present) Radhames Greenwood MD July 30, 2016 10:56
[2016-07-30 12:00] VITALS: BP 115/62; PULSE 70; RESP 18; TEMP 96.6; O2SAT 97
--- NOTE | 2016-07-30 13:02 | HHI.NSPN ---
(Tristen Hutchinson) Note Status Status: Progress Note (Tristen Hutchinson) Interval History Interval History 07/22: 81-year-old male brought to the emergency room today with altered mental status. No recent fall. He has a previous emergency room evaluation for altered mental status in 2016. Also recent admission in June 2016 for UTI with sepsis. Patient was discharged on antibiotic therapy. He presents with complaints of approximately 1 week of generalized increased lethargy, mild confusion, decreased appetite and nausea and vomiting. Positive nonproductive cough. No definite fevers or chills. No diarrhea. No complaint of significant headache, dizziness, vertigo. 07/26: Patient having nausea when seen. Therapy reports patient had a large bilious emesis after being sat up on the side of the bed prior to being seen. He denied any headache or dizziness. 07/28: Patient asleep but awakens to verbal stimuli. He had no complaints when seen. Infectious Disease signed off today. Neurology & Hospitalist are asking that his shunt pressure be adjusted downward to see if he will be able to ambulate better. 07/30: Patient seen earlier this morning and stated he was doing well. He did have some difficulty with recent memory. His SHANK RANDER shunt was adjusted from 120 to 90. When seen this afternoon the patient had ambulated in the room using a wheeled walker with standby assist per Therapy who stated he had some unsteadiness when he first got up. The patient does state he has a headache that came on approximately 2 hours ago. He also had some churning to his stomach which he at one point described as feeling the need to have a bowel movement and then nausea. (Tristen Hutchinson) Labs, Micro, & Vital Signs Constitutional Vital Signs Date Time Temp Pulse Resp B/P Pulse Ox O2 Delivery O2 Flow Rate FiO2 07/30/16 12:00 96.6 70 18 115/62 97 07/30/16 08:00 96.4 86 17 147/55 93 07/29/16 23:05 98.0 77 20 142/7 97 07/29/16 21:45 76 20 141/69 97 5/11/17 21:30 77 20 175/84 97 07/29/16 20:00 97.5 91 18 198/91 93 07/29/16 16:00 98.1 85 17 156/74 98 07/30/16 07:00 Intake Total 2235 ml Output Total 3975 ml Balance -1740 ml (Tristen Hutchinson) Review of Systems/Exam ROS Constitutional: Patient denies any fever or chills. Respirataory: Patient denies any shortness of breath or productive cough. Cardiac. Patient denies any chest pain, palpitations or irregular heart beat. GI: Patient states his stomach was churning earlier, describing it as feeling like he needed to have a bowel movement then as nausea. He denies any abdominal pain, vomiting or bowel incontinence. : Patient has a Anaya catheter in place. MS: Patient states that his legs feel weak. Neuro: He has a headache that started about two hours before being seen. He denies any dizziness, numbness,tingling or feeling off balance. Exam General: Well-developed, well-nourished, thin male who appears his stated age. HEENT: Normocephalic, atraumatic. Resp: CTAB w/o W/R/R, equal excursion, non-laboured, on RA. CV: S1S2 w/RRR w/o M/G/R, no pedal edema. GI: Abdomen, soft, non-tender, positive bowel sounds. : Anaya catheter to BSD w/clear yellow urine. MS: ROCHA, extremities normal, no deformities or discolouration. Neuro: Awake & alert, oriented to person & place but not time. He had difficulty with recent memory when seen earlier in the day. Sensation grossly intact to light touch to all extremities. Motor strength to all major flexion & extension muscle groups 5/5. (Tristen Hutchinson) Medications Current Medications Current Medications Medications (Trade) Dose Ordered Sig/Robert Route Start Time Stop Time Status Last Admin (Lopressor) 12.5 mg BID PO 07/22/16 21:00 07/30/16 08:42 (Silvadene 1% Cream (50 Gm)) 1 applic DAILY TOPICAL 07/23/16 09:00 07/27/16 08:46 (Effexor Xr) 150 mg DAILY PO 07/23/16 09:00 07/30/16 08:42 (Prinivil) 2.5 mg DAILY PO 07/23/16 09:00 07/30/16 08:42 (Mag-Ox) 400 mg DAILY PO 07/23/16 09:00 07/30/16 08:42 Pravastatin Sodium 20 mg 20 mg DAILY PO 07/23/16 09:00 07/30/16 08:42 (NS 1000 ml Inj) 1,000 ml @ 100 mls/hr Q10H IV 07/22/16 15:43 07/29/16 21:25 (NS Flush) 2 ml UNSCH PRN IV FLUSH 07/22/16 15:45 (NS Flush) 2 ml BID IV FLUSH 07/22/16 21:00 07/29/16 20:28 (Tylenol) 650 mg Q4H PRN PO 07/22/16 15:45 07/25/16 21:03 (Zofran Inj) 4 mg Q6H PRN IVP 07/22/16 15:45 07/23/16 06:39 (Narcan Inj) 0.4 mg UNSCH PRN IV 07/22/16 15:45 (Pill Splitter) 1 ea UNSCH PRN OTHER 07/22/16 16:00 07/27/16 08:46 (D50w (Vial) Inj) 25 ml UNSCH PRN IV PUSH 07/22/16 15:45 (Glucagon Inj) 1 mg UNSCH PRN OTHER 07/22/16 15:45 (Sinemet 25-100 Mg) 1 tab DAILY@06,12,16 PO 07/26/16 08:00 07/30/16 13:03 (Miralax) 17 gm DAILY PO 07/27/16 11:15 07/29/16 09:57 (Restoril) 15 mg HS PRN PO 07/28/16 21:00 (Tristen Hutchinson) Medical Decision Making MDM Remarks Impression: 1. Altered mental status, uncertain of baseline. A. Neurology feels patient is at baseline 2. UTI 3. History of NPH. Status post ventriculoperitoneal shunt. No definite evidence of shunt malfunction or infection at present. Hyponatremia, resolved T max 97.5 Patient remains on contact precautions Patient demonstrating some evidence of too much CSF being taken off, his headache did improve with laying down. (Tristen Hutchinson) Plan Plan Remarks Plan of care discussed with patient. Recommend monitoring of sodium and correct hyponatremia if present. The SHANK RANDER shunt pressure was dropped from 120 to 90 this morning. The shunt pressure was increased from 90 to 100 this afternoon to see if he will have resolution of his headache when he is up. (Tristen Hutchinson) Attending Statement I have personally seen and examined the patient on the date of this note. Pertinent documentation and study results have been reviewed by the undersigned. I have personally developed the treatment plan and performed medical decision making. Agree with findings, exam, and treatment plan as noted above. Much more alert today. Recalls 1/3 objects at 5 minutes Speech clear and appropriate Smiling Moves all extremities well with good strength Recent CT scan findings discussed with the patient He agrees to a change in the shunt valve pressure. Continue physical therapy with observation of gait. Recent mental status changes are not felt to be related to shunt malfunction. ( Darrel Shah MD) Tristen Hutchinson July 30, 2016 13:02 Darrel Shah MD July 30, 2016 19:57
[2016-07-30 16:00] VITALS: BP 139/67; PULSE 77; RESP 17; TEMP 98.4; O2SAT 98
[2016-07-30 20:00] VITALS: BP 127/72; PULSE 87; RESP 19; TEMP 98; O2SAT 94
[2016-07-30 23:55] VITALS: BP 128/69; PULSE 69; RESP 18; TEMP 96.8; O2SAT 94
[2016-07-31] MEDS: CARBIDOPA/LEVODOPA 25 MG/100 MG TAB PO SCH ×3 (05:31→17:28)
[2016-07-31] MEDS: INSULIN ASPART SUPPLEMENTAL SCALE SQ SCH ×4 (07:00→21:00)
[2016-07-31 08:00] VITALS: BP 138/82; PULSE 88; RESP 17; TEMP 97.3; O2SAT 98
[2016-07-31] MEDS: SODIUM CHLORIDE 0.9% FLUSH 10 ML FLUSH IV FLUSH SCH ×2 (08:03→20:17)
[2016-07-31] MEDS: PRAVASTATIN SOD 20 MG TAB PO SCH (08:04)
[2016-07-31] MEDS: MAGNESIUM OXIDE 400 MG TAB PO SCH (08:04)
[2016-07-31] MEDS: LISINOPRIL 5 MG TAB PO SCH (08:04)
[2016-07-31] MEDS: METOPROLOL TARTRATE 25 MG TAB PO SCH ×2 (08:04→20:15)
[2016-07-31] MEDS: VENLAFAXINE HCL XR 75 MG CAP PO SCH (08:04)
[2016-07-31] MEDS: POLYETHYLENE GLYCOL 17 GM PKG PO SCH ×2 (08:05→08:09)
[2016-07-31] MEDS: SILVER SULFADIAZINE 1% CR 50 GM JAR TOPICAL SCH (08:05)
[2016-07-31] MEDS: SODIUM CHLOR 0.9% 1000 ML INJ 1,000 ML IV SCH ×2 (08:09→19:06)
--- NOTE | 2016-07-31 11:55 | HHI.PR ---
Subjective Remarks Resting in a chair, alert and awake. Oriented to place and person knows president. Doesn't know the date or month or year. He did use January 28, 2018 Appetite fair No more fever not offering any complaint As per patient has to move his bowels now ROS for 10 point system is unremarkable No family at bedside Objective Objective Results - Vital Signs Date Time Temp Pulse Resp B/P Pulse Ox O2 Delivery O2 Flow Rate FiO2 07/31/16 08:00 97.3 88 17 138/82 98 07/30/16 23:55 96.8 69 18 128/69 94 07/30/16 20:00 98.0 87 19 127/72 94 07/30/16 16:00 98.4 77 17 139/67 98 07/30/16 12:00 96.6 70 18 115/62 97 I/O 07/30/16 07/30/16 07/30/16 07/31/16 07/31/16 07/31/16 07:00 15:00 23:00 07:00 15:00 23:00 Intake Total 653 ml 360 ml 360 ml 789 ml Output Total 1600 ml 850 ml 850 ml 1900 ml Balance -947 ml -490 ml -490 ml -1111 ml Intake Oral 120 ml 360 ml 360 ml 240 ml IV Total 533 ml 0 ml 549 ml Output Urine Total 1600 ml 850 ml 850 ml 1900 ml # Bowel Movements 1 2 0 0 Result Diagram: 07/27/16 0437 07/27/16 0435 Imaging Last Impressions Head CT 07/22/16 1141 Signed Impressions: Service Date/Time: July 13:02 - CONCLUSION: 1. No acute intercranial abnormality. 2. The ventriculostomy shunt is in good position. Sudhakar Marrufo MD Chest X-Ray 07/22/16 1141 Signed Impressions: Service Date/Time: July 11:57 - CONCLUSION: No acute disease. Karsten Bledsoe Jr., MD Shunt Study (Imaging) 07/22/16 0000 Signed Impressions: Service Date/Time: July 13:38 - CONCLUSION: Shunt appears intact. Valve set to 120 mm of water. Rick Kwok MD Other Results Date/Time Procedure Status Source Growth 07/26/16 15:45 Gram Stain - Final Complete Sputum Expectorated Sputum 07/26/16 15:45 Sputum Culture - Final Complete Sputum Expectorated Sputum HEAVY GROWTH NORMAL RESPIRATORY [facility] Physical Exam Physical Exam GENERAL: This is a well-developed, elderly male who appears to be in no acute distress. HEAD: Normocephalic without any lesion or mass noted. Facial features appear symmetric. OROPHARYNGEAL: Oropharynx without erythema or edema. NECK: Supple. Trachea midline without deviation. CARDIAC: Regular rhythm, regular rate, S1 and S2 are heard. LUNGS: Decreased to auscultation mild at bases. No wheeze, no rhonchi ABDOMEN: Soft, nontender, taut. Bowel sounds active. Positive left-sided large inguinal hernia seems reducible EXTREMITIES: no edema. Pulses equal bilateral. NEUROLOGICAL: Patient mood and affect are appropriate. alert orientation as above normal power and tone of extremities SKIN:Warm and moist A/P Assessment and Plan (1) Altered mental status, unspecified (2) UTI (3) BPH (benign prostatic hyperplasia) (4) NPH (normal pressure hydrocephalus) (5) Diabetes (6) Frequent falls (7) Hyperlipidemia (8) Hypertension (9) Acute kidney injury (10) Failure of outpatient treatment (11) Chronic indwelling Anaya catheter Fever resolved , Constipation nurse give him MiraLAX. As the patient has moved his bowel Recurrent UTI, has chronic indwelling catheter, Anaya was changed on 07/21/2016. [facility] Appreciate infectious disease input patient is off of antibiotic Appreciate surgical input. Discussed with Dr. Renteria yesterday Appreciate neurology input. Discussed with neurologist today Appreciate neurosurgery input. Discussed with neurosurgeon this morning We'll maintain Anaya catheter due to urinary retention and according to the record, stone blockages Anemia, stable , probable secondary to chronic disease, stable Altered mental status, probable secondary NPH Neurology consult for their expert opinion. Recommends to keep off of antipsychotic meds and NSX to drain more fluid . Neurosurgery input for shunt review again. Add Sinemet, check BP standing, patient struggling with standing and mobility. neurosurgery did adjust shunt not too long ago. As per physical therapy note and patient his gait is improving Physical therapy, the patient is unable to stand or support his weight. Will encouraged to be out of bed in chair Acute renal injury, possibly secondary to dehydration, resolved constipation Improving Type 2 diabetes Accu-Cheks before meals and at bedtime with insulin therapy SCDs for DVT prophylaxis dw rn dw patient Discussed With: Nurse, Family (no family present) Radhames Greenwood MD July 31, 2016 11:54
[2016-07-31 12:00] VITALS: BP 118/69; PULSE 70; RESP 19; TEMP 96.2; O2SAT 97
[2016-07-31 16:00] VITALS: BP 149/80; PULSE 81; RESP 19; TEMP 97.6; O2SAT 97
[2016-07-31 20:00] VITALS: BP 148/71; PULSE 100; RESP 18; TEMP 98.1; O2SAT 95
[2016-08-01] VITALS: BP 141/69; PULSE 75; RESP 20; TEMP 98; O2SAT 97
[2016-08-01] MEDS: CARBIDOPA/LEVODOPA 25 MG/100 MG TAB PO SCH ×3 (06:06→16:33)
[2016-08-01] MEDS: INSULIN ASPART SUPPLEMENTAL SCALE SQ SCH ×4 (06:09→21:34)
[2016-08-01 08:00] VITALS: BP 164/78; PULSE 78; RESP 17; TEMP 97.8; O2SAT 96
[2016-08-01] MEDS: SILVER SULFADIAZINE 1% CR 50 GM JAR TOPICAL SCH (08:43)
[2016-08-01] MEDS: PRAVASTATIN SOD 20 MG TAB PO SCH (08:52)
[2016-08-01] MEDS: POLYETHYLENE GLYCOL 17 GM PKG PO SCH (08:52)
[2016-08-01] MEDS: SODIUM CHLOR 0.9% 1000 ML INJ 1,000 ML IV SCH ×2 (08:52→16:33)
[2016-08-01] MEDS: VENLAFAXINE HCL XR 75 MG CAP PO SCH (08:52)
[2016-08-01] MEDS: METOPROLOL TARTRATE 25 MG TAB PO SCH ×2 (08:52→21:35)
[2016-08-01] MEDS: LISINOPRIL 5 MG TAB PO SCH (08:52)
[2016-08-01] MEDS: MAGNESIUM OXIDE 400 MG TAB PO SCH (08:52)
[2016-08-01] MEDS: SODIUM CHLORIDE 0.9% FLUSH 10 ML FLUSH IV FLUSH SCH ×2 (08:56→21:36)
--- NOTE | 2016-08-01 11:29 | HHI.PR ---
Subjective Remarks Resting in a chair, alert and awake. Oriented to place and person knows president. Doesn't know the exact date or month or year. As per patient and RN he did walk inside his room with walker. But as per patient he was wobbly and is still not confident Appetite fair No more fever not offering any complaint ROS for 10 point system is unremarkable No family at bedside Objective Objective Results - Vital Signs Date Time Temp Pulse Resp B/P Pulse Ox O2 Delivery O2 Flow Rate FiO2 08/01/16 08:00 97.8 78 17 164/78 96 08/01/16 00:00 98.0 75 20 141/69 97 07/31/16 20:00 98.1 100 18 148/71 95 07/31/16 16:00 97.6 81 19 149/80 97 07/31/16 12:00 96.2 70 19 118/69 97 I/O 07/31/16 07/31/16 07/31/16 08/01/16 08/01/16 08/01/16 07:00 15:00 23:00 07:00 15:00 23:00 Intake Total 789 ml 1226 ml 637 ml 1480 ml Output Total 1900 ml 950 ml 650 ml 1950 ml Balance -1111 ml 276 ml -13 ml -470 ml Intake Oral 240 ml 300 ml 120 ml 480 ml IV Total 549 ml 926 ml 517 ml 1000 ml Output Urine Total 1900 ml 950 ml 650 ml 1950 ml # Bowel Movements 0 0 0 0 Imaging Last Impressions Head CT 07/22/16 1141 Signed Impressions: Service Date/Time: July 13:02 - CONCLUSION: 1. No acute intercranial abnormality. 2. The ventriculostomy shunt is in good position. Sudhakar Marrufo MD Chest X-Ray 07/22/16 1141 Signed Impressions: Service Date/Time: July 11:57 - CONCLUSION: No acute disease. Karsten Bledsoe Jr., MD Shunt Study (Imaging) 07/22/16 0000 Signed Impressions: Service Date/Time: July 13:38 - CONCLUSION: Shunt appears intact. Valve set to 120 mm of water. Rick Kwok MD Physical Exam Physical Exam GENERAL: This is a well-developed, elderly male who appears to be in no acute distress. HEAD: Normocephalic without any lesion or mass noted. Facial features appear symmetric. OROPHARYNGEAL: Oropharynx without erythema or edema. NECK: Supple. Trachea midline without deviation. CARDIAC: Regular rhythm, regular rate, S1 and S2 are heard. LUNGS: Decreased to auscultation mild at bases. No wheeze, no rhonchi ABDOMEN: Soft, nontender, taut. Bowel sounds active. Positive left-sided large inguinal hernia seems reducible EXTREMITIES: no edema. Pulses equal bilateral. NEUROLOGICAL: Patient mood and affect are appropriate. alert orientation as above normal power and tone of extremities SKIN:Warm and moist A/P Assessment and Plan (1) Altered mental status, unspecified (2) UTI (3) BPH (benign prostatic hyperplasia) (4) NPH (normal pressure hydrocephalus) (5) Diabetes (6) Frequent falls (7) Hyperlipidemia (8) Hypertension (9) Acute kidney injury (10) Failure of outpatient treatment (11) Chronic indwelling Anaya catheter Fever resolved , Constipation resolved Recurrent UTI, has chronic indwelling catheter, Anaya was changed on 07/21/2016. Urine culture report seen on [facility] Appreciate infectious disease input patient is off of antibiotic Appreciate surgical input. Discussed with Dr. Renteria yesterday Appreciate neurology input. Discussed with neurologist today Appreciate neurosurgery input. Discussed with neurosurgeon this morning We'll maintain Anaya catheter due to urinary retention and according to the record, stone blockages Anemia, stable , probable secondary to chronic disease, stable Altered mental status, probable secondary NPH Neurology consult for their expert opinion. Recommends to keep off of antipsychotic meds and NSX to drain more fluid . Neurosurgery input for shunt review again. Add Sinemet, check BP standing, patient struggling with standing and mobility. neurosurgery did adjust shunt not too long ago. As per physical therapy note and patient his gait is improving Physical therapy, the patient is unable to stand or support his weight. Will encouraged to be out of bed in chair Acute renal injury, possibly secondary to dehydration, resolved constipation Better Type 2 diabetes Accu-Cheks before meals and at bedtime with insulin therapy SCDs for DVT prophylaxis dw rn dw patient Discussed With: Nurse, Family (no family present) Radhames Greenwood MD August 01, 2016 11:29
[2016-08-01 12:00] VITALS: BP 146/72; PULSE 75; RESP 18; TEMP 97.1; O2SAT 96
[2016-08-01 16:00] VITALS: BP 164/83; PULSE 83; RESP 17; TEMP 98; O2SAT 96
[2016-08-01 20:00] VITALS: BP 162/83; PULSE 86; RESP 20; TEMP 97.1; O2SAT 96
[2016-08-01 23:52] VITALS: BP 153/76; PULSE 63; RESP 18; TEMP 97.5; O2SAT 97
[2016-08-02] MEDS: SODIUM CHLOR 0.9% 1000 ML INJ 1,000 ML IV SCH ×2 (02:07→11:43)
[2016-08-02] MEDS: INSULIN ASPART SUPPLEMENTAL SCALE SQ SCH ×3 (06:24→15:55)
[2016-08-02] MEDS: CARBIDOPA/LEVODOPA 25 MG/100 MG TAB PO SCH ×2 (06:26→13:28)
[2016-08-02 08:00] VITALS: BP 174/81; PULSE 80; RESP 16; TEMP 96.8; O2SAT 94
[2016-08-02] MEDS: PRAVASTATIN SOD 20 MG TAB PO SCH (08:27)
[2016-08-02] MEDS: POLYETHYLENE GLYCOL 17 GM PKG PO SCH (08:27)
[2016-08-02] MEDS: VENLAFAXINE HCL XR 75 MG CAP PO SCH (08:27)
[2016-08-02] MEDS: MAGNESIUM OXIDE 400 MG TAB PO SCH (08:27)
[2016-08-02] MEDS: LISINOPRIL 5 MG TAB PO SCH (08:28)
[2016-08-02] MEDS: METOPROLOL TARTRATE 25 MG TAB PO SCH (08:28)
[2016-08-02] MEDS: SODIUM CHLORIDE 0.9% FLUSH 10 ML FLUSH IV FLUSH SCH (08:28)
[2016-08-02] MEDS: SILVER SULFADIAZINE 1% CR 50 GM JAR TOPICAL SCH (08:28)
--- NOTE | 2016-08-02 08:38 | HHI.PR ---
Subjective Remarks [place] [facility] [place] Objective Vital Signs Date Time Temp Pulse Resp B/P Pulse Ox O2 Delivery O2 Flow Rate FiO2 08/02/16 08:00 96.8 80 16 174/81 94 08/01/16 23:52 97.5 63 18 153/76 97 08/01/16 20:00 97.1 86 20 162/83 96 08/01/16 16:00 98.0 83 17 164/83 96 08/01/16 12:00 97.1 75 18 146/72 96 I/O 08/01/16 08/01/16 08/01/16 08/02/16 08/02/16 08/02/16 07:00 15:00 23:00 07:00 15:00 23:00 Intake Total 1480 ml 450 ml 959 ml 678 ml Output Total 1950 ml 675 ml 825 ml 1500 ml Balance -470 ml -225 ml 134 ml -822 ml Intake Oral 480 ml 450 ml 240 ml 320 ml IV Total 1000 ml 719 ml 358 ml Output Urine Total 1950 ml 675 ml 825 ml 1500 ml # Bowel Movements 0 0 0 0 Objective Remarks battery container finishing hand small steps with two person assiste less retropulsion walking better i put him in chair Assessment and Plan Assessment and Plan imp will try sinemet check standing bp nl PT walking some better and will have nusu adjust shunt to take off more fluid TODAY PLAN IS TO HAVE PT WALK HIM AFTER SINEMET AND ADJUST SHUNT TO TAKE MORE FLUID OFF AND SEE IF WE CAN GET HIM WALK BETTER still trying to get ahold of nu for this sleep regiment as has not slept in 2 days dc provigil for now 07/29/16 slept all night w/o meds and still asleep now nusu to adjust shunt to 90 will see how does after this i will dw PT not ambulating well yest just fcogn at walker and retropulsing may do better after sleep 07/30/16 doing better after good sleep walking better nusu unclear if they have adjusted shunt yet i do not see note cont PT 08/02/16 looks some better with shunt adjust and sinemet needs aggressive rehab and neuro diallo he is ready for dc i will sign off and fu my office 4 weeks chronic guevara? Aston Nichols MD August 02, 2016 08:38
[2016-08-02] MEDS: PILL SPLITTER OTHER PRN (08:42)
--- NOTE | 2016-08-02 10:39 | HHI.PR ---
Subjective Remarks Resting in a bed, alert and awake. Oriented to place and person knows president. Doesn't know the exact date or month or year. As per patient and RN he did walk inside his room with walker. But as per patient he was wobbly and is still not confident Appetite fair No more fever not offering any complaint ROS for 10 point system is unremarkable No family at bedside Objective Objective Results - Vital Signs Date Time Temp Pulse Resp B/P Pulse Ox O2 Delivery O2 Flow Rate FiO2 08/02/16 08:00 96.8 80 16 174/81 94 08/01/16 23:52 97.5 63 18 153/76 97 08/01/16 20:00 97.1 86 20 162/83 96 08/01/16 16:00 98.0 83 17 164/83 96 08/01/16 12:00 97.1 75 18 146/72 96 I/O 08/01/16 08/01/16 08/01/16 08/02/16 08/02/16 08/02/16 07:00 15:00 23:00 07:00 15:00 23:00 Intake Total 1480 ml 450 ml 959 ml 678 ml Output Total 1950 ml 675 ml 825 ml 1500 ml Balance -470 ml -225 ml 134 ml -822 ml Intake Oral 480 ml 450 ml 240 ml 320 ml IV Total 1000 ml 719 ml 358 ml Output Urine Total 1950 ml 675 ml 825 ml 1500 ml # Bowel Movements 0 0 0 0 Imaging Last Impressions Head CT 07/22/16 1141 Signed Impressions: Service Date/Time: July 13:02 - CONCLUSION: 1. No acute intercranial abnormality. 2. The ventriculostomy shunt is in good position. Sudhakar Marrufo MD Chest X-Ray 07/22/16 1141 Signed Impressions: Service Date/Time: July 11:57 - CONCLUSION: No acute disease. Karsten Bledsoe Jr., MD Shunt Study (Imaging) 07/22/16 0000 Signed Impressions: Service Date/Time: July 13:38 - CONCLUSION: Shunt appears intact. Valve set to 120 mm of water. Rick Kwok MD Physical Exam Physical Exam GENERAL: This is a well-developed, elderly male who appears to be in no acute distress. HEAD: Normocephalic without any lesion or mass noted. Facial features appear symmetric. OROPHARYNGEAL: Oropharynx without erythema or edema. NECK: Supple. Trachea midline without deviation. CARDIAC: Regular rhythm, regular rate, S1 and S2 are heard. LUNGS: Decreased to auscultation mild at bases. No wheeze, no rhonchi ABDOMEN: Soft, nontender, taut. Bowel sounds active. Positive left-sided large inguinal hernia seems reducible EXTREMITIES: no edema. Pulses equal bilateral. NEUROLOGICAL: Patient mood and affect are appropriate. alert orientation as above normal power and tone of extremities SKIN:Warm and moist A/P Assessment and Plan (1) Altered mental status, unspecified (2) UTI (3) BPH (benign prostatic hyperplasia) (4) NPH (normal pressure hydrocephalus) (5) Diabetes (6) Frequent falls (7) Hyperlipidemia (8) Hypertension (9) Acute kidney injury (10) Failure of outpatient treatment (11) Chronic indwelling Anaya catheter Fever resolved , Constipation resolved Recurrent UTI, has chronic indwelling catheter, Anaya was changed on 07/21/2016. [facility] Appreciate infectious disease input patient is off of antibiotic Appreciate surgical input. Appreciate neurology input. Okay to DC to SNF Appreciate neurosurgery input. We'll maintain Anaya catheter due to urinary retention and according to the record, stone blockages Anemia, stable , probable secondary to chronic disease, stable Altered mental status, probable secondary NPH Neurology consult for their expert opinion. Recommends to keep off of antipsychotic meds and NSX to drain more fluid . Neurosurgery input for shunt review again. Add Sinemet, check BP standing, patient struggling with standing and mobility. neurosurgery did adjust shunt not too long ago. As per physical therapy note and patient his gait is improving Physical therapy, the patient is unable to stand or support his weight. Will encouraged to be out of bed in chair Acute renal injury, possibly secondary to dehydration, resolved constipation Better Type 2 diabetes Accu-Cheks before meals and at bedtime with insulin therapy SCDs for DVT prophylaxis dw rn dw patient Discussed with case finisher about DC planning to SNF Discussed With: Nurse, Family (no family present) Radhames Greenwood MD August 02, 2016 10:39
[2016-08-02] MEDS ORDERED: CARB25TA9 PO (10:42)
[2016-08-02] MEDS ORDERED: REST15CA PO (10:42)
--- NOTE | 2016-08-02 11:11 | HHI.NSPN ---
(Tristen Hutchinson) Note Status Status: Progress Note (Tristen Hutchinson) Interval History Interval History 07/22: 81-year-old male brought to the emergency room today with altered mental status. No recent fall. He has a previous emergency room evaluation for altered mental status in 2016. Also recent admission in June 2016 for UTI with sepsis. Patient was discharged on antibiotic therapy. He presents with complaints of approximately 1 week of generalized increased lethargy, mild confusion, decreased appetite and nausea and vomiting. Positive nonproductive cough. No definite fevers or chills. No diarrhea. No complaint of significant headache, dizziness, vertigo. 07/26: Patient having nausea when seen. Therapy reports patient had a large bilious emesis after being sat up on the side of the bed prior to being seen. He denied any headache or dizziness. 07/28: Patient asleep but awakens to verbal stimuli. He had no complaints when seen. Infectious Disease signed off today. Neurology & Hospitalist are asking that his shunt pressure be adjusted downward to see if he will be able to ambulate better. 07/30: Patient seen earlier this morning and stated he was doing well. He did have some difficulty with recent memory. His FUR PLUCKER shunt was adjusted from 120 to 90. When seen this afternoon the patient had ambulated in the room using a wheeled walker with standby assist per Therapy who stated he had some unsteadiness when he first got up. The patient does state he has a headache that came on approximately 2 hours ago. He also had some churning to his stomach which he at one point described as feeling the need to have a bowel movement and then nausea. 08/02: Patient asleep but awakens to verbal stimuli. Has no complaints when seen. States he was up and ambulated using a wheeled walker. Physical Therapy in his note yesterday said the patient initially did not require any assistance but as he went further he did and that he went into objects on 3 occasions. The patient said he was "wobbly" when walking. He denied any headache or nausea sitting up or standing. (Tristen Hutchinson) Labs, Micro, & Vital Signs Constitutional Vital Signs Date Time Temp Pulse Resp B/P Pulse Ox O2 Delivery O2 Flow Rate FiO2 08/02/16 08:00 96.8 80 16 174/81 94 08/01/16 23:52 97.5 63 18 153/76 97 08/01/16 20:00 97.1 86 20 162/83 96 08/01/16 16:00 98.0 83 17 164/83 96 08/01/16 12:00 97.1 75 18 146/72 96 08/02/16 07:00 Intake Total 2087 ml Output Total 3000 ml Balance -913 ml (Tristen Hutchinson) Review of Systems/Exam ROS Constitutional: Patient denies any fever or chills. Respirataory: Patient denies any shortness of breath or productive cough. Cardiac. Patient denies any chest pain, palpitations or irregular heart beat. GI: Patient denies any abdominal pain, nausea, vomiting or bowel incontinence. : Patient has a Anaya catheter in place. MS: Patient states that his legs feel weak and he is "wobbly" when walking. Neuro: He denies any headache, dizziness, numbness,tingling but says he is "wobbly" when walking. Exam General: NAD. HEENT: Normocephalic, atraumatic. Resp: CTAB w/o W/R/R, equal excursion, non-laboured, on RA. CV: S1S2 w/RRR w/o M/G/R, no pedal edema. GI: Abdomen, soft, non-tender, positive bowel sounds. : Anaya catheter to BSD w/clear yellow urine. MS: ROCHA, extremities normal, no deformities or discolouration. Neuro: Awake & alert, oriented to person only, initially said he was in a hospital but then in rehab and was emphatic about it, and not to time. Sensation grossly intact to light touch to all extremities. Motor strength to all major flexion & extension muscle groups 5/5. (Tristen Hutchinson) Medications Current Medications Current Medications Medications (Trade) Dose Ordered Sig/Robert Route Start Time Stop Time Status Last Admin (Lopressor) 12.5 mg BID PO 07/22/16 21:00 08/02/16 08:28 (Silvadene 1% Cream (50 Gm)) 1 applic DAILY TOPICAL 07/23/16 09:00 07/27/16 08:46 (Effexor Xr) 150 mg DAILY PO 07/23/16 09:00 08/02/16 08:27 (Prinivil) 2.5 mg DAILY PO 07/23/16 09:00 08/02/16 08:28 (Mag-Ox) 400 mg DAILY PO 07/23/16 09:00 08/02/16 08:27 Pravastatin Sodium 20 mg 20 mg DAILY PO 07/23/16 09:00 08/02/16 08:27 (NS 1000 ml Inj) 1,000 ml @ 100 mls/hr Q10H IV 07/22/16 15:43 08/02/16 02:07 (NS Flush) 2 ml UNSCH PRN IV FLUSH 07/22/16 15:45 (NS Flush) 2 ml BID IV FLUSH 07/22/16 21:00 07/29/16 20:28 (Tylenol) 650 mg Q4H PRN PO 07/22/16 15:45 07/25/16 21:03 (Zofran Inj) 4 mg Q6H PRN IVP 07/22/16 15:45 07/23/16 06:39 (Narcan Inj) 0.4 mg UNSCH PRN IV 07/22/16 15:45 (Pill Splitter) 1 ea UNSCH PRN OTHER 07/22/16 16:00 08/02/16 08:42 (D50w (Vial) Inj) 25 ml UNSCH PRN IV PUSH 07/22/16 15:45 (Glucagon Inj) 1 mg UNSCH PRN OTHER 07/22/16 15:45 (Sinemet 25-100 Mg) 1 tab DAILY@06,12,16 PO 07/26/16 08:00 08/02/16 06:26 (Miralax) 17 gm DAILY PO 07/27/16 11:15 08/02/16 08:27 (Restoril) 15 mg HS PRN PO 07/28/16 21:00 (Tristen Hutchinson) Medical Decision Making MDM Remarks Impression: 1. Altered mental status, uncertain of baseline. A. Neurology feels patient is at baseline 2. UTI 3. History of NPH. Status post ventriculoperitoneal shunt. No definite evidence of shunt malfunction or infection at present. Hyponatremia, resolved T max 97.5 Patient remains on contact precautions Patient ambulating but does have some gait difficult, no reported headache or nausea. (Tirsten Hutchinson) Plan Plan Remarks Plan of care discussed with patient. Recommend monitoring of sodium and correct hyponatremia if present. The FUR PLUCKER shunt pressure at 100, since no further headache or nausea reported could consider turning shunt pressure to 90 again and see if he tolerates it. ( Tristen Hutchinson) Attending Statement The exam, history, and the medical decision-making described in the above note were completed with the assistance of the mid-level provider. I reviewed and agree with the findings presented. I attest that I had a [id number] encounter with the patient on the same day, and personally performed and documented my assessment and findings in the medical record. D/W patient. My exam as above (Darrel Shah MD) Tristen Hutchinson August 02, 2016 11:11 Darrel Shah MD Sep 21, 2016 16:03
[2016-08-02 12:00] VITALS: BP 134/75; PULSE 74; RESP 17; TEMP 96.5; O2SAT 96
--- NOTE | 2016-09-06 18:25 | HHI.DS ---
Discharge Summary Admission Date July 22, 2016 at 16:20 Discharge Date: August 02, 2016 Admitting Diagnosis altered mental status, UTI (1) Altered mental status, unspecified Diagnosis: Principal (2) UTI Diagnosis: Principal (3) BPH (benign prostatic hyperplasia) Diagnosis: Secondary (4) NPH (normal pressure hydrocephalus) Diagnosis: Secondary (5) Diabetes Diagnosis: Secondary (6) Frequent falls Diagnosis: Secondary (7) Hyperlipidemia (8) Hypertension Diagnosis: Secondary (9) Acute kidney injury Diagnosis: Principal (10) Failure of outpatient treatment Diagnosis: Secondary (11) Chronic indwelling Guevara catheter Diagnosis: Secondary Brief History This was a pleasant 81-year-old elderly male with significant past medical history of hypertension, hyperlipidemia, NPH has BP shunt, chronic indwelling catheter, recurrent UTIs, prior admissions for sepsis. Patient presented to the emergency room for evaluation of altered mental status. Patient was a poor historian, information was obtained from the patient's family were at bedside. Patient was recently admitted from 07/06 to 07/09/2016 for sepsis and UTI, cultures were positive for MRSA in the urine. ID was consulted, pt. improved and was discharged on appropriate antibiotic therapy. Pt. had guevara catheter for approximately 6 months and follows up with Dr. Garrett. According to the , he did relatively well for a few days however in the last week they have noted that the patient has become more weaker, had been more confused and has not been eating well. Daughter endorsed he's had frequent episodes of nausea and vomiting. There was no reported fever, no chills. He did have a fall a couple days ago and has some bruising to the left flank. He did go see his primary care physician and was instructed to continue on antibiotics, he stopped Flomax and finasteride. His Guevara catheter was changed yesterday. Was also reported some coughing, no sputum. Imaging Last Impressions Head CT 07/22/16 1141 Signed Impressions: Service Date/Time: July 13:02 - CONCLUSION: 1. No acute intercranial abnormality. 2. The ventriculostomy shunt is in good position. Sudhakar Marrufo MD Chest X-Ray 07/22/16 1141 Signed Impressions: Service Date/Time: July 11:57 - CONCLUSION: No acute disease. Karsten Bledsoe Jr., MD Shunt Study (Imaging) 07/22/16 0000 Signed Impressions: Service Date/Time: July 13:38 - CONCLUSION: Shunt appears intact. Valve set to 120 mm of water. Rick Kwok MD PE at Discharge GENERAL: This was a well-developed, elderly male who appeared to be in no acute distress. HEAD: Normocephalic without any lesion or mass noted. Facial features appear symmetric. OROPHARYNGEAL: Oropharynx without erythema or edema. NECK: Supple. Trachea midline without deviation. CARDIAC: Regular rhythm, regular rate, S1 and S2 are heard. LUNGS: Decreased to auscultation mild at bases. No wheeze, no rhonchi ABDOMEN: Soft, nontender, taut. Bowel sounds active. Positive left-sided large inguinal hernia seems reducible EXTREMITIES: no edema. Pulses equal bilateral. NEUROLOGICAL: Patient mood and affect are appropriate. alert orientation as above normal power and tone of extremities SKIN:Warm and moist Hospital Course In the emergency room, patient was evaluated. Urinalysis was noted with large amount of leukocyte esterase and bacteria however improved from previous admission. CBC was unremarkable. BMP remarkable for dehydration, creatinine 1.33. Mild hyponatremia, sodium 132. Lactic acid was normal, 1.5. CT of the head did not show any acute findings. Shunt study did not reveal any abnormalities. Valves set 220 mm of water. Chest x-ray did not reveal any acute findings. Patient was hemodynamically stable, afebrile. Blood cultures were obtained, empiric antibiotics started. Pt. is pleasantly confused, family at [facility]. He has no complaints at this time. Pt. admitted for further evaluation and treatment. These are the diagnoses that were used to treat this patient during this hospital stay (1) Altered mental status, unspecified (2) UTI (3) BPH (benign prostatic hyperplasia) (4) NPH (normal pressure hydrocephalus) (5) Diabetes (6) Frequent falls (7) Hyperlipidemia (8) Hypertension (9) Acute kidney injury (10) Failure of outpatient treatment (11) Chronic indwelling Guevara catheter Vital signs were monitored daily and medications adjusted according to needs. Patient initially had fever which was treated and resolved Labs monitored daily and adjusted based on need Bowel regimen was monitored and patient was treated for Constipation, resolved Recurrent UTI, has chronic indwelling catheter, Guevara was changed on 07/21/2016. Urine culture report seen on diflucan Appreciate infectious disease input patient is off of antibiotic. Could be a system with patient's altered mental status. Appreciate surgical input. Appreciate neurology input. Okay to DC to SNF when medically stable Appreciate neurosurgery input.Recommended monitoring of sodium and correct hyponatremia if present. The [employer]IVERSAL GR[employer]ER [employer]OL shunt pressure at 100, since no further headache or nausea reported could consider turning shunt pressure to 90 again if needed. We'll maintain Guevara catheter due to urinary retention and according to the record, stone blockages Anemia, stable , probable secondary to chronic disease, stable Altered mental status, stabilized and monitored per neurology probable secondary to patient's NPH. Neurology consult for their expert opinion. Recommends to keep off of antipsychotic meds and NSX to drain more fluid . Probably causing most of patient's symptoms which included his altered mental status. Neurosurgery input for shunt review again. Add Sinemet, check BP standing, patient struggling with standing and mobility. neurosurgery did adjust shunt not too long ago. As per physical therapy note and patient his gait is improving Physical therapy, the patient is unable to stand or support his weight. Will encouraged to be out of bed in chair. Once medically stable patient needed further mobility and strengthening. Discharge planning was initiated and reviewed throughout hospital stay. It was felt that he would benefit from SNF placement Acute renal injury, possibly secondary to dehydration, resolved with medications and medical management Type 2 diabetes Accu-Cheks before meals and at bedtime with insulin therapy SCDs for DVT prophylaxis d Pt Condition on Discharge: Stable Discharge Disposition: Discharge to SNF Discharge Instructions DIET: Follow Instructions for: Diabetic Diet Activities you can perform: Weight Bearing as Chu Follow up Referrals: Neurology - 08/23/16 with Aston Nichols MD Neurosurgery - 08/23/16 with Darrel Shah MD PCP Follow-up - 1 Week New Medications: Carbidopa-Levodopa (Carbidopa-Levodopa) 25-100 Mg Tab 1 TAB PO DAILY@06,12,16 gailt problem #30 TAB Temazepam (Restoril) 15 Mg Cap 15 MG PO HS PRN insomnia #15 CAP Continued Medications: Glimepiride (Glimepiride) 1 Mg Tab 1 MG PO DAILY Take with breakfast or first main meal Blood Sugar Management #30 Ref 0 TAB Lisinopril (Lisinopril) 2.5 Mg Tab 2.5 MG PO DAILY #30 Ref 0 TAB Metoprolol Tartrate (Metoprolol Tartrate) 25 Mg Tab 12.5 MG PO BID #60 Ref 0 TAB Ondansetron Odt (Zofran Odt) 4 Mg Tab 4 MG SL Q12HR PRN Nausea/Vomiting #30 Ref 0 TAB Ranitidine (Zantac) 150 Mg Tab 150 MG PO DAILY Reduce Stomach Acid #30 Ref 0 TAB Simvastatin (Zocor) 10 Mg Tab 10 MG PO DAILY Cholesterol Management #30 Ref 0 TAB Venlafaxine ER 24 HR (Venlafaxine ER 24 HR) 75 Mg Tab 150 MG PO DAILY #30 Ref 0 TAB Discontinued Medications: Sulfamethoxazole-Trimethoprim (Bactrim) 400-80 Mg Tab 1 TAB PO Q12HR uti #28 TAB Taylor Cm Sep 06, 2016 18:25
== END 2016-08-02 16:09 | DRG 699 ==
LOC: NEPE 11:11 → NEDA 14:09 → OBSVTOIN 16:20 → NEPHCDU 18:21 → N07A 07-23 21:40
PROVIDERS: ADMIT Specialist; ATTEND Specialist
DX: T83.511A Infection and inflammatory reaction due to indwelling urethral catheter, initial encounter (principal); N17.9 Acute kidney failure, unspecified; G91.2 (Idiopathic) normal pressure hydrocephalus; J44.9 Chronic obstructive pulmonary disease, unspecified; E87.1 Hypo-osmolality and hyponatremia; B37.49 Other urogenital candidiasis; E11.9 Type 2 diabetes mellitus without complications; E86.0 Dehydration; K59.00 Constipation, unspecified; R41.82 Altered mental status, unspecified; R50.9 Fever, unspecified; K40.90 Unilateral inguinal hernia, without obstruction or gangrene, not specified as recurrent; E78.5 Hyperlipidemia, unspecified; I10 Essential (primary) hypertension; N40.1 Benign prostatic hyperplasia with lower urinary tract symptoms; R33.8 Other retention of urine; D64.9 Anemia, unspecified; S20.212A Contusion of left front wall of thorax, initial encounter; Y84.6 Urinary catheterization as the cause of abnormal reaction of the patient, or of later complication, without mention of misadventure at the time of the procedure; W19.XXXA Unspecified fall, initial encounter; Z87.440 Personal history of urinary (tract) infections; Z86.14 Personal history of Methicillin resistant Staphylococcus aureus infection; Z87.442 Personal history of urinary calculi; Z98.2 Presence of cerebrospinal fluid drainage device; Z87.891 Personal history of nicotine dependence; Z79.84 Long term (current) use of oral hypoglycemic drugs
CPT/HCPCS: 36600; 70250; 70450; 71010; 72040; 74000; 80048; 80053; 81001; 82140; 82533; 82550; 82607; 82805; 82948; 83605; 83690; 83735; 83921; 84425; 84443; 84484; 85025; 85610; 85652; 85730; 86140; 87040; 87070; 87086; 87106; 87205; 94150; 94640; 94664; 95819; 96361; 96374; J1815; J2405; J3370; J7030; J7050

== ENCOUNTER 2016-08-09 20:21 | Emergency (ER) | payer MEDICARE ==
[~2016-08-09] VITALS: Ht 172.7 cm; Wt 75.0 kg
[~2016-08-09 20:21] MED LIST changes: -AMPI500C8 PO; -BACT400T PO; +CARB25TA9 PO; -METF1000 PO; -PROS5TAB PO; +REST15CA PO; -TAMS5CAP PO; +ZOFR4TAB3 SL
[2016-08-09 20:26] VITALS: BP 166/74; PULSE 87; RESP 18; TEMP 98.6; O2SAT 98
[2016-08-09] MEDS ORDERED: MAGN500T5 PO (20:41)
--- NOTE | 2016-08-09 20:58 | PD ---
HPI Chief Complaint: Fall Time Seen by Provider: 20:29 Travel History International Travel<30 days: No Contact w/Intl Traveler<30days: No Traveled to known affect area: No History of Present Illness HPI Patient is an 81-year-old male from [facility] after an witnessed fall. As per EMS, patient was in his wheelchair and fell to the floor. 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 Patient currently is not on any anticoagulants, he was awake and alert when he was found by staff at the rehabilitation center. Patient currently is demented, he is only alert to person, patient with no complaints at this time. PFSH Past Medical History Hx Anticoagulant Therapy: No Arthritis: No Asthma: No Autoimmune Disease: No Blood Disorders: No Anxiety: No Depression: Yes Heart Rhythm Problems: No Cancer: No Cardiovascular Problems: Yes High Cholesterol: Yes Chemotherapy: No Chest Pain: No Congestive Heart Failure: No COPD: Yes Cerebrovascular Accident: No Dementia: Yes Diabetes: Yes Patient Takes Glucophage: No Diminished Hearing: No Endocrine: Yes Gastrointestinal Disorders: No GERD: Yes Genitourinary: Yes Headaches: Yes Hepatitis: No Hiatal Hernia: No Heparin Induced Thrombocytopen: No Hypertension: Yes Immune Disorder: No Implanted Vascular Access Dvce: No Insomnia: Yes Kidney Stones: Yes Musculoskeletal: No Neurologic: Yes (MEMORY LOSS) Psychiatric: No Reproductive: No Respiratory: Yes Immunizations Current: Yes Migraines: No Radiation Therapy: No Renal Failure: No 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) Sickle Cell Disease: No Sleep Apnea: No Thyroid Disease: No Triglycerides - High: Yes Ulcer: No Tetanus Vaccination: Unknown Past Surgical History Surgical History: No Previous Surgery Abdominal Surgery: Yes AICD: No Appendectomy: Yes Arteriovenous Shunt: Yes Cardiac Surgery: No Ear Surgery: No Endocrine Surgery: No Eye Surgery: No Genitourinary Surgery: No Gynecologic Surgery: No Insulin Pump: No Joint Replacement: Yes (RIGHT HIP SCREWS ONLY) Neurologic Surgery: Yes ([employer]NAGER Shunt) Oral Surgery: No Pacemaker: No Thoracic Surgery: No Other Surgery: Yes (RUPTURED APPENDIX 50 YRS) Social History Alcohol Use: No Tobacco Use: No Substance Use: No Allergies-Medications (Allergen,Severity, Reaction): Coded Allergies: *MDRO Multi-Drug Resistant Organism (Verified Adverse Reaction, Unknown, 4 /21/17) 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 Reported Meds & Prescriptions Reported Meds & Active Scripts Active Restoril (Temazepam) 15 Mg Cap 15 Mg PO HS PRN Carbidopa-Levodopa 25-100 Mg Tab 1 Tab PO DAILY@06,12,16 Reported Magnesium Gluconate 500 Mg Tab 500 Mg PO DAILY Zofran Odt (Ondansetron Odt) 4 Mg Tab 4 Mg SL Q12HR PRN Glimepiride 1 Mg Tab 1 Mg PO DAILY Take with breakfast or first main meal Venlafaxine ER 24 HR (Venlafaxine HCl) 75 Mg Tab 150 Mg PO DAILY Lisinopril 2.5 Mg Tab 2.5 Mg PO DAILY Metoprolol Tartrate 25 Mg Tab 12.5 Mg PO BID Zocor (Simvastatin) 10 Mg Tab 10 Mg PO DAILY Zantac (Ranitidine HCl) 150 Mg Tab 150 Mg PO DAILY Review of Systems ROS Limitations: Poor Historian General / Constitutional: No: Fever Eyes: No: Visual changes HENT: No: Headaches Cardiovascular: No: Chest Pain or Discomfort Respiratory: No: Shortness of Breath Gastrointestinal: No: Abdominal Pain Genitourinary: No: Dysuria Musculoskeletal: No: Pain Skin: No Rash Neurologic: No: Weakness Psychiatric: No: Depression Endocrine: No: Polydipsia Hematologic/Lymphatic: No: Easy Bruising Physical Exam Narrative GENERAL: Pleasantly confused, no acute distress SKIN: Focused skin assessment warm/dry. HEAD: Atraumatic. Normocephalic. EYES: Pupils equal and round. No scleral icterus. No injection or drainage. ENT: No nasal bleeding or discharge. Mucous membranes pink and moist. NECK: Trachea midline. No JVD. CARDIOVASCULAR: Regular rate and rhythm. No murmur appreciated. RESPIRATORY: No accessory muscle use. Clear to auscultation. Breath sounds equal bilaterally. GASTROINTESTINAL: Abdomen soft, non-tender, nondistended. Hepatic and splenic margins not palpable. MUSCULOSKELETAL: No obvious deformities. No clubbing. No cyanosis. No edema. NEUROLOGICAL: Awake and alert to person. No obvious cranial nerve deficits. Normal speech. PSYCHIATRIC: Appropriate mood and affect Data Data Last Documented VS Vital Signs Date Time Temp Pulse Resp B/P Pulse Ox O2 Delivery O2 Flow Rate FiO2 08/09/16 20:32 98 Room Air 08/09/16 20:26 98.6 87 18 166/74 Orders Chest, Single Ap (08/09/16 20:29) Pelvis, Ap Only (Routine) (08/09/16 20:29) Ct Brain W/O Iv Contrast(Rout) (08/09/16 20:29) Ct Cerv Spine W/O Contrast (08/09/16 20:29) Blood Glucose (08/09/16 20:29) MDM Medical Decision Making Medical Screen Exam Complete: Yes Emergency Medical Condition: Yes Interpretation(s) Vital Signs Date Time Temp Pulse Resp B/P Pulse Ox O2 Delivery O2 Flow Rate FiO2 08/09/16 20:32 98 Room Air 08/09/16 20:26 98.6 87 18 166/74 98 Differential Diagnosis Intracranial hemorrhage, cervical spine fracture, pneumothorax Narrative Course Patient is an 81-year-old male with history of dementia, presents to emergency room after a he fell out of his wheelchair today. Patient has no complaints while in the emergency room, he is alert to person only. On exam, patient has no abrasions or contusions, he does have C-spine precautions in place. Patient currently is moving all his extremities, there is no midline tenderness to his T or L-spine. Plan to obtain CAT scan of his head and neck, will obtain x-ray of his chest as well as pelvis. If studies are benign, plan to discharge patient back to his long term. Last Impressions Pelvis X-Ray 08/09/162028 Signed Impressions: Service Date/Time: Tuesday, August 09, 2016 20:40 - CONCLUSION: 1. No acute fracture. Probable bladder calculus. Previous fixation right hip. Luis Eduardo Merino MD Head CT 08/09/162028 Signed Impressions: Service Date/Time: Tuesday, August 09, 2016 20:55 - CONCLUSION: Right frontal ventriculostomy with stable hydrocephalus since July 22. No new findings. Luis Eduardo Merino MD Cervical Spine CT 08/09/162028 Signed Impressions: Service Date/Time: Tuesday, August 09, 2016 20:55 - CONCLUSION: 1. No acute findings. Degenerative disc disease as above. Luis Eduardo Merino MD CTs as well as x-rays are benign with no acute findings. Patient is pleasantly demented and nontoxic appearing at bedside. Plan to discharge patient back to long term with outpatient follow-up with his primary care doctor. Diagnosis Primary Impression: Accident due to mechanical fall without injury Qualified Code: W19.XXXA - Accident due to mechanical fall without injury, initial encounter Patient Instructions: General Instructions Additional Instructions: Please follow-up with your primary care doctor Return to the emergency room as needed Return to the emergency room if symptoms worsen or progress Disposition: 01 DISCHARGE HOME Condition: Stable Rosalba Louis DO August 09, 2016 20:58
--- NOTE | 2016-08-09 21:49 | RADRPT ---
EXAM DATE/TIME: 08/09/2016 20:55 [facility] COMPARISON: No previous studies available for comparison. INDICATIONS : Trauma. Fall. RADIATION DOSE: 21.40 CTDIvol (mGy) MEDICAL HISTORY : Cardiovascular disease. Hypertension. Dementia.Diabetes Seizures SURGICAL HISTORY : Appendectomy. RN RENAL shunt ENCOUNTER: Initial ACUITY: 1 day PAIN SCALE: 5/10 LOCATION: neck TECHNIQUE: Volumetric scanning of the cervical spine was performed. Multiplanar reconstructions in the sagittal, coronal and oblique axial planes were performed. Using automated exposure control and adjustment o f the mA and/or kV according to patient size, radiation dose was kept as low as reasonably achievable to obtain optimal diagnostic quality images. FINDINGS: No acute fracture or subluxation. No prevertebral soft tissue swelling. Broad-based disc osteophyte c omplex present at C4-5 and C5-6 with prominent osteophyte also at C6-7. These result in mild AP canal stenosis. No other discrete disc protrusions. CONCLUSION: 1. No acute findings. Degenerative disc disease as above. Luis Eduardo Merino MD on August 09, 2016 at 21:44 Board Certified Radiologist. This report was verified electronically.
--- NOTE | 2016-08-09 21:51 | RADRPT ---
EXAM DATE/TIME: 08/09/2016 20:55 [facility] COMPARISON: No previous studies available for comparison. INDICATIONS : Trauma. Fall. RADIATION DOSE: 35.59 CTDIvol (mGy) MEDICAL HISTORY : Cardiovascular disease. Hypertension. Dementia.Diabetes Seizures SURGICAL HISTORY : Appendectomy. 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 Using automated exposure control and adj ustment of the mA and/or kV according to patient size, radiation dose was kept as low as reasonably a chievable to obtain optimal diagnostic quality images. FINDINGS: A right frontal ventriculostomy tube with tip near foramen of Monro. Ventricular size is stable since July 22. Mild encephalomalacia around the ventriculostomy. No mass effect or shift. No acute bony abno rmality. CONCLUSION: Right frontal ventriculostomy with stable hydrocephalus since July 22. No new findings. Luis Eduardo Merino MD on August 09, 2016 at 21:47 Board Certified Radiologist. This report was verified electronically.
--- NOTE | 2016-08-09 22:16 | RADRPT ---
EXAM DATE/TIME: 08/09/2016 20:40 [facility] COMPARISON: No previous studies available for comparison. INDICATIONS : Pelvic pain after fall. MEDICAL HISTORY : None. SURGICAL HISTORY : Right hip pinning. Shunt. ENCOUNTER: Initial ACUITY: 1 day PAIN SCORE: 2/10 LOCATION: pelvis. 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 Moderate osteoarthrit is left hip. Laminated calcification in the central pelvis measuring 3.5 cm probably represents a jonh dder stone. Shunt tube tip projected over right lower quadrant. No acute pelvic fracture. Osteopenia. CONCLUSION: 1. No acute fracture. Probable bladder calculus. Previous fixation right hip. Luis Eduardo Merino MD on August 09, 2016 at 22:13 Board Certified Radiologist. This report was verified electronically.
--- NOTE | 2016-08-09 22:18 | RADRPT ---
EXAM DATE/TIME: 08/09/2016 20:42 [facility] COMPARISON: CHEST SINGLE AP, July 22, 2016, 11:57. INDICATIONS : Chest pain after fall. MEDICAL HISTORY : Hypertension. Cardiovascular disease. frequent urinary tract infections, SURGICAL HISTORY : Shunt. ENCOUNTER: Initial ACUITY: 1 day PAIN SCORE: 4/10 LOCATION: Bilateral chest FINDINGS: Shunt tubing overlies right hemithorax. Linear atelectasis and scarring at the lung bases. No effusio n. No pneumothorax. Tortuous aorta. CONCLUSION: 1. Linear scarring and atelectasis at the lung bases. Shunt tubing on the right. No effusion. No pneu mothorax. Luis Eduardo Merino MD on August 09, 2016 at 22:15 Board Certified Radiologist. This report was verified electronically.
== END 2016-08-10 08:11 | disposition home or self-care (01) ==
LOC: NEPE 20:21 → NEPD 08-10 08:11
DX: F03.90 Unspecified dementia, unspecified severity, without behavioral disturbance, psychotic disturbance, mood disturbance, and anxiety (principal); W05.0XXA Fall from non-moving wheelchair, initial encounter; Y92.129 Unspecified place in nursing home as the place of occurrence of the external cause; I10 Essential (primary) hypertension
CPT/HCPCS: 70450; 71010; 72125; 72170; 99284

== ENCOUNTER 2016-10-29 16:00 | Emergency (ER) | payer MEDICARE ==
[~2016-10-29] VITALS: Ht 177.8 cm; Wt 68.0 kg
[~2016-10-29 16:00] MED LIST changes: -MAGN1TAB14 PO; +MAGN500T5 PO; -SILV1CRE20 TOPICAL
[2016-10-29 16:02] VITALS: BP 114/59; PULSE 100; RESP 16; TEMP 97.5; O2SAT 100
--- NOTE | 2016-10-29 16:15 | PD ---
Physical Exam Date Seen by Provider: Oct 29, 2016 Time Seen by Provider: 16:10 Narrative Pt sent by Dr. Shah for abnormal blood pressure. Apparently in the office his systolic was in the upper 80's. 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 Shunt was not drained due to low blood pressure. Pt denies any headache, chest pain, SOB. Apparently he was sent in for a sepsis work up.Pt report pain in right testicle, which appears to have been ongoing for a few months. VSS, awaiting bed placement. Data Data Last Documented VS Vital Signs Date Time Temp Pulse Resp B/P Pulse Ox O2 Delivery O2 Flow Rate FiO2 10/29/16 16:02 97.5 100 16 114/59 100 MDM Supervised Visit with MARILEE: Yris Palacios Oct 29, 2016 16:15
[2016-10-29] MEDS ORDERED: SODIUM CHLOR 0.9% 1000 ML INJ 1,000 ML IV ONE (17:00)
--- NOTE | 2016-10-29 17:07 | PD ---
HPI Chief Complaint: Neuro Symptoms/ Deficits Time Seen by Provider: 16:30 Travel History International Travel<30 days: No Contact w/Intl Traveler<30days: No Traveled to known affect area: No History of Present Illness HPI Is an 81-year-old man who presents to the emergency department sent for low blood pressure and rapid heart rate. He is a history of hydrocephalus with a CRADLE PLACER shunt placed by Dr. Louis about 3 years ago or so. 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 He resides in [facility]. He was lethargic and office for shunt adjustment with a good blood pressure and was 80/59, heart rate 116, they noted that there was cloudiness in his Anaya catheter bag. They sent him over the ED for evaluation for infection or sepsis. He's been feeling generally well. He has some occasional vomiting. His occasional pain in the scrotum. No fevers. No change in his bowels. No other complaints. History Past Medical History Narrative Medical Hydrocephalus, status post CRADLE PLACER shunt, followed by Dr. 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 Reported Meds & Prescriptions Reported Meds & Active Scripts Active Restoril (Temazepam) 15 Mg Cap 15 Mg PO HS PRN Carbidopa-Levodopa 25-100 Mg Tab 1 Tab PO DAILY@,,16 Reported Magnesium Gluconate 500 Mg Tab 500 Mg PO DAILY Zofran Odt (Ondansetron Odt) 4 Mg Tab 4 Mg SL Q12HR PRN Glimepiride 1 Mg Tab 1 Mg PO DAILY Take with breakfast or first main meal Venlafaxine ER 24 HR (Venlafaxine HCl) 75 Mg Tab 150 Mg PO DAILY Lisinopril 2.5 Mg Tab 2.5 Mg PO DAILY Metoprolol Tartrate 25 Mg Tab 12.5 Mg PO BID Zocor (Simvastatin) 10 Mg Tab 10 Mg PO DAILY Zantac (Ranitidine HCl) 150 Mg Tab 150 Mg PO DAILY Review of Systems Except as stated in HPI: all other systems reviewed are Neg Physical Exam Narrative GENERAL: Well-appearing 81-year-old man, no acute distress. SKIN: Focused skin assessment warm/dry. NECK: Trachea midline. No JVD. CARDIOVASCULAR: Regular rate and rhythm. No murmur appreciated. RESPIRATORY: No accessory muscle use. Clear to auscultation. Breath sounds equal bilaterally. GASTROINTESTINAL: Abdomen soft, non-tender, nondistended. Hepatic and splenic margins not palpable. : Massive inguinal hernia. Penis itself is difficult fine. There is erosion of the urethral catheter ventrally. There is a lot of maceration and irritation. MUSCULOSKELETAL: No obvious deformities. No clubbing. No cyanosis. No edema. NEUROLOGICAL: Awake and alert. No obvious cranial nerve deficits. Motor grossly within normal limits. Normal speech. PSYCHIATRIC: Appropriate mood and affect; insight and judgment normal. Data Data Last Documented VS Vital Signs Date Time Temp Pulse Resp B/P Pulse Ox O2 Delivery O2 Flow Rate FiO2 10/29/16 16:59 Room Air 10/29/16 16:02 97.5 100 16 114/59 100 Orders Urinalysis - C+S If Indicated (10/29/16 16:58) Complete Blood Count With Diff (10/29/16 16:58) Comprehensive Metabolic Panel (10/29/16 16:58) Lactic Acid (10/29/16 16:58) Chest, Single Ap (10/29/16 ) Sodium Chlor 0.9% 1000 Ml Inj (Ns 1000 M (10/29/16 17:00) MDM Medical Decision Making Medical Screen Exam Complete: Yes Emergency Medical Condition: Yes Differential Diagnosis UTI, dehydration, sepsis, other Narrative Course Medical decision making This 81-year-old man who presents to the emergency department with low blood pressure at his neurosurgeon's office. He looks well. He has no obvious infectious symptoms. No fever. He doesn't chronic and going fully catheter. This was changed and will send a sterile urine specimen for evaluation. We'll check his labs and x-ray. He overall looks well. Blood pressures been normal in the ED. Patient will be sent out the oncoming provider to follow-up results of diagnostic testing. Nick John MD Oct 29, 2016 17:07
--- NOTE | 2016-10-29 17:33 | RADRPT ---
EXAM DATE/TIME: 10/29/2016 17:22 [facility] COMPARISON: CHEST SINGLE AP, August 09, 2016, 20:42. INDICATIONS : Fever. Weakness. MEDICAL HISTORY : None. SURGICAL HISTORY : None. ENCOUNTER: Initial ACUITY: 3 days PAIN SCORE: 6/10 LOCATION: Bilateral chest FINDINGS: Presumed ventriculoperitoneal shunt tubing traverses the right chest. There is mild parenchymal opaci ty in the right lung base. No evidence of effusion. Cardiomediastinal contours are stable and satisfa ctory accounting for projection. CONCLUSION: Mild right base parenchymal opacity Rick Ellington MD on October 29, 2016 at 17:30 Board Certified Radiologist. This report was verified electronically.
[2016-10-29] MEDS ORDERED: REGL10TA5 PO (17:55)
[2016-10-29] MEDS ORDERED: COLA100C PO (17:55)
[2016-10-29] MEDS ORDERED: MAGN400T2 PO (17:55)
[2016-10-29] MEDS ORDERED: POLY17PO3 PO (17:55)
[2016-10-29] MEDS ORDERED: PROM1SUP7 RECTAL (17:55)
[2016-10-29 17:57] LABS: AUTOMATED NEUTROPHIL # 9.6 TH/MM3 (1.8-7.7); BASOPHIL # 0.1 TH/MM3 (0-0.2); BASOPHIL % 0.8 % (0.0-2.0); EOSINOPHIL # 0.4 TH/MM3 (0-0.4); EOSINOPHIL % 2.7 % (0.0-4.0); HEMATOCRIT 41.5 % (39.0-51.0); HEMO FLAGS DIFF FINAL; LYMPH % 15.9 % (9.0-44.0); LYMPHOCYTE # 2.1 TH/MM3 (1.0-4.8); MEAN CELL VOLUME 84.2 FL (80.0-100.0); MEAN CORPUSCULAR HEMOGLOBIN 29.1 PG (27.0-34.0); MEAN CORPUSCULAR HGB CONC 34.5 % (32.0-36.0); MONO % 9.2 % (0.0-8.0); NEUT % 71.4 % (16.0-70.0); PLATELET COUNT 365 TH/MM3 (150-450); RED BLOOD COUNT 4.93 MIL/MM3 (4.50-5.90); RED CELL DISTRIBUTION WIDTH 15.4 % (11.6-17.2); WHITE BLOOD COUNT 13.4 TH/MM3 (4.0-11.0)
--- NOTE | 2016-10-29 18:12 | PD ---
Physical Exam Narrative Received sign out from previous team to follow up labs, imaging, UA and reevaluate patient. 81yo M was sent here from neurosurgeon's office because he was hypotensive and urine appeared cloudy. 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 Denies any fever, chest pain, sob, n/v, abdominal pain, focal weakness or numbness. Pt does have an indwelling guevara catheter because of obstruction from large inguinal hernia that he has had for 40 years. Pt denies any pain in inguinal hernia currently. Exam is unremarkable. Guevara catheter was changed and NS IVF given. BP was 114/59 here. CXR showed mild right base parenchymal opacity. Labs reviewed, leukocytosis at 13.4. CMP showed mild hyponatremia at 132, BUN also mildly elevated at 25. Pt received IVF. Creatinine normal. Lactic acid normal at 1.1. UA showed large leukocyte. Given ceftriaxone 1gm IV here. Pt is very well appearing with no symptoms. BP is 143/69. Will prescribe oral antibiotics and have pt follow up with PMD. Pt has no complaints. Data Data Last Documented VS Vital Signs Date Time Temp Pulse Resp B/P Pulse Ox O2 Delivery O2 Flow Rate FiO2 10/29/16 19:07 93 14 143/69 100 Room Air 10/29/16 16:02 97.5 Orders Urinalysis - C+S If Indicated (10/29/16 16:58) Complete Blood Count With Diff (10/29/16 16:58) Comprehensive Metabolic Panel (10/29/16 16:58) Lactic Acid (10/29/16 16:58) Chest, Single Ap (10/29/16 ) Sodium Chlor 0.9% 1000 Ml Inj (Ns 1000 M (10/29/16 17:00) Urine Culture (10/29/16 18:35) Ceftriaxone Inj (Rocephin Inj) (10/29/16 19:30) Labs Laboratory Tests Test 10/29/16 10/29/16 10/29/16 17:24 17:30 18:35 White Blood Count 13.4 TH/MM3 Red Blood Count 4.93 MIL/MM3 Hemoglobin 14.3 GM/DL Hematocrit 41.5 % Mean Corpuscular Volume 84.2 FL Mean Corpuscular Hemoglobin 29.1 PG Mean Corpuscular Hemoglobin 34.5 % Concent Red Cell Distribution Width 15.4 % Platelet Count 365 TH/MM3 Mean Platelet Volume 7.8 FL Neutrophils (%) (Auto) 71.4 % Lymphocytes (%) (Auto) 15.9 % Monocytes (%) (Auto) 9.2 % Eosinophils (%) (Auto) 2.7 % Basophils (%) (Auto) 0.8 % Neutrophils # (Auto) 9.6 TH/MM3 Lymphocytes # (Auto) 2.1 TH/MM3 Monocytes # (Auto) 1.2 TH/MM3 Eosinophils # (Auto) 0.4 TH/MM3 Basophils # (Auto) 0.1 TH/MM3 CBC Comment DIFF FINAL Differential Comment Sodium Level 132 MEQ/L Potassium Level 4.2 MEQ/L Chloride Level 97 MEQ/L Carbon Dioxide Level 28.4 MEQ/L Anion Gap 7 MEQ/L Blood Urea Nitrogen 25 MG/DL Creatinine 1.13 MG/DL Estimat Glomerular Filtration 62 ML/MIN Rate Random Glucose 105 MG/DL Calcium Level 9.1 MG/DL Total Bilirubin 0.4 MG/DL Aspartate Amino Transf 7 U/L (AST/SGOT) Alanine Aminotransferase 15 U/L (ALT/SGPT) Alkaline Phosphatase 99 U/L Total Protein 7.5 GM/DL Albumin 3.4 GM/DL Lactic Acid Level 1.1 mmol/L Urine Color LIGHT-YELLOW Urine Turbidity HAZY Urine pH 5.5 Urine Specific [place] 1.009 Urine Protein TRACE mg/dL Urine Glucose (UA) NEG mg/dL Urine Ketones NEG mg/dL Urine Occult Blood SMALL Urine Nitrite NEG Urine Bilirubin NEG Urine Urobilinogen LESS THAN 2.0 MG/DL Urine Leukocyte Esterase LARGE Urine RBC 4 /hpf Urine WBC 77 /hpf Urine WBC Clumps MANY Urine Bacteria OCC /hpf Urine Hyaline Casts 3 /lpf Urine Mucus FEW /lpf Microscopic Urinalysis Comment CULTURE INDICATED MDM Supervised Visit with MARILEE: No Diagnosis Primary Impression: UTI Patient Instructions: General Instructions Departure Forms: Tests/Procedures Additional Instruction: Please follow up with your PMD in 3-7 days. Return to the ED if symptoms worsen. Med/Other Pt SpecificInfo: Prescription(s) given Scripts Sulfamethoxazole-Trimethoprim (Bactrim DS)800-160 Mg Tab1 Tab PO BID #14 TAB Ref 0 Prov:Alba Masters DO 10/29/16 Disposition: 01 DISCHARGE HOME Condition: Stable Alba Masters DO Oct 29, 2016 18:12
[2016-10-29 18:28] LABS: ANION GAP 7 MEQ/L (5-15); AST (GOT) 7 U/L (15-37); BICARBONATE 28.4 MEQ/L (21.0-32.0); BLOOD UREA NITROGEN 25 MG/DL (7-18); CHLORIDE 97 MEQ/L (98-107); GLOMERULAR FILTRATION RATE 62 ML/MIN (>89); POTASSIUM 4.2 MEQ/L (3.5-5.1); SODIUM (NA) 132 MEQ/L (136-145)
[2016-10-29 18:30] LABS: ALT (GPT) 15 U/L (12-78)
[2016-10-29 18:32] LABS: ALKALINE PHOSPHATASE 99 U/L (45-117); TOTAL BILIRUBIN ADULT 0.4 MG/DL (0.2-1.0)
[2016-10-29 19:07] VITALS: BP 143/69; PULSE 93; RESP 14; O2SAT 100
[2016-10-29 19:09] LABS: BACTERIA, URINE OCC /hpf; BLOOD, URINE SMALL (NEG); COMMENT (UR) CULTURE INDICATED; CULTURE IF INDICATED CULTURE INDICATED; GLUCOSE,URINE NEG (NEG); HYALINE CAST, URINE 3 /lpf (RARE); KETONE, URINE NEG (NEG); MUCUS URINE FEW /lpf (OCC); NITRITE,URINE NEG (NEG); PH, URINE 5.5 (5.0-8.5); URINE COLOR LIGHT-YELLOW (YELLW/STRAW)
[2016-10-29] MEDS ORDERED: cefTRIAXone INJ 1,000 MG in SODIUM CHLORIDE 0.9% INJ 100 ML IV ONE (19:30)
[2016-10-29] MEDS ORDERED: BACT800T5 PO (19:33)
[2016-10-29 20:59] VITALS: BP 133/71; PULSE 90; RESP 18; O2SAT 99
== END 2016-10-29 21:05 | disposition home or self-care (01) ==
LOC: NEPD 16:00
DX: N39.0 Urinary tract infection, site not specified (principal); A49.8 Other bacterial infections of unspecified site; Z98.2 Presence of cerebrospinal fluid drainage device; E87.1 Hypo-osmolality and hyponatremia; E11.9 Type 2 diabetes mellitus without complications; I10 Essential (primary) hypertension; E78.5 Hyperlipidemia, unspecified; J44.9 Chronic obstructive pulmonary disease, unspecified; Z79.899 Other long term (current) drug therapy
CPT/HCPCS: 71010; 80053; 81001; 83605; 85025; 87077; 87086; 87186; 96361; 96365; 99284; J0696; J7030

== ENCOUNTER 2016-11-13 11:16 | Emergency (ER) | payer MEDICARE ==
[~2016-11-13] VITALS: Ht 172.7 cm; Wt 70.0 kg
[~2016-11-13 11:16] MED LIST changes: +BACT800T5 PO; -CARB25TA9 PO; +COLA100C PO; +MAGN400T2 PO; -MAGN500T5 PO; +POLY17PO3 PO; +PROM1SUP7 RECTAL; +REGL10TA5 PO; -REST15CA PO
[2016-11-13 11:23] VITALS: BP 128/68; PULSE 95; RESP 17; TEMP 97.5; O2SAT 99
[2016-11-13] MEDS ORDERED: METO25TA3 PO (11:45)
--- NOTE | 2016-11-13 12:04 | PD ---
HPI Chief Complaint: Fall Time Seen by Provider: 11:56 Travel History International Travel<30 days: No Contact w/Intl Traveler<30days: No Traveled to known affect area: No History of Present Illness HPI Patient comes from [facility] after having a witnessed fall during therapy that occurred shortly prior to arrival. Per report patient was ambulating with his walker doing therapy when he tripped falling forwards hitting his head on the door. 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 Per report patient's complaining of low back pain at that time. Currently patient complaining of back pain inferior to his right scapula. Describes pain as a soreness without radiation. Pain is worse with movement. Denies anything making it better. PFSH Past Medical History Hx Anticoagulant Therapy: No Arthritis: No Asthma: No Autoimmune Disease: No Blood Disorders: No Anxiety: No Depression: Yes Heart Rhythm Problems: No Cancer: No Cardiovascular Problems: Yes High Cholesterol: Yes Chemotherapy: No Chest Pain: No Congestive Heart Failure: No COPD: Yes Cerebrovascular Accident: No Dementia: Yes Diabetes: Yes Diminished Hearing: No Endocrine: Yes Gastrointestinal Disorders: No GERD: Yes Genitourinary: Yes (urinary retention, urogenital implants) Headaches: Yes Hepatitis: No Hiatal Hernia: No Heparin Induced Thrombocytopen: No Hypertension: Yes Immune Disorder: No Implanted Vascular Access Dvce: Yes Insomnia: Yes Kidney Stones: Yes Musculoskeletal: No Neurologic: Yes (hyrdocecphalus) Psychiatric: No Reproductive: No Respiratory: Yes Immunizations Current: Yes Migraines: No Radiation Therapy: No Renal Failure: No Seizures: Yes Sickle Cell Disease: No Sleep Apnea: No Thyroid Disease: No Triglycerides - High: Yes Ulcer: No Past Surgical History Abdominal Surgery: Yes AICD: No Appendectomy: Yes Arteriovenous Shunt: Yes Cardiac Surgery: No Ear Surgery: No Endocrine Surgery: No Eye Surgery: No Genitourinary Surgery: No Gynecologic Surgery: No Insulin Pump: No Joint Replacement: Yes (RIGHT HIP SCREWS ONLY) Neurologic Surgery: Yes (CONTINUING EDUCATION SPECIALIST Shunt) Oral Surgery: No Pacemaker: No Thoracic Surgery: No Other Surgery: Yes (RUPTURED APPENDIX 50 YEARS AGO ) Social History Alcohol Use: No Tobacco Use: No Substance Use: No Allergies-Medications (Allergen,Severity, Reaction): Coded Allergies: *MDRO Multi-Drug Resistant Organism (Verified Adverse Reaction, Unknown, ) 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 Reported Meds & Prescriptions Reported Meds & Active Scripts Active Reported Metoprolol Tartrate 25 Mg Tab 6.25 Mg PO BID Miralax (Polyethylene Glycol 3350) 17 Gm Powd.pack 1 Pack PO HS Colace (Docusate Sodium) 100 Mg Capsule 1 Cap PO BID Magnesium Oxide 400 Mg Tab 400 Mg PO DAILY Reglan (Metoclopramide HCl) 10 Mg Tab 10 Mg PO TIDAC Phenergan Supp (Promethazine HCl) 25 Mg Supp 25 Mg RECTAL Q6H PRN Zofran Odt (Ondansetron Odt) 4 Mg Tab 4 Mg SL Q12HR PRN Glimepiride 1 Mg Tab 1 Mg PO DAILY Take with breakfast or first main meal Venlafaxine ER 24 HR (Venlafaxine HCl) 75 Mg Tab 150 Mg PO DAILY Lisinopril 2.5 Mg Tab 2.5 Mg PO DAILY Zocor (Simvastatin) 10 Mg Tab 10 Mg PO DAILY Zantac (Ranitidine HCl) 150 Mg Tab 150 Mg PO DAILY Review of Systems Except as stated in HPI: all other systems reviewed are Neg Physical Exam Narrative GENERAL: Well-developed, well nourished, in no acute distress, and non-ill appearing. SKIN: Focused skin assessment warm and dry. HEAD: Atraumatic. Normocephalic. EYES: Pupils equal and round. EOMI. No scleral icterus. No injection or drainage. ENT: No nasal bleeding or discharge. Mucous membranes pink and moist. NECK: Trachea midline. Supple. No nuclear rigidity. No tenderness or crepitus throughout cervical spine. CARDIOVASCULAR: Regular rate and rhythm. No murmur appreciated. RESPIRATORY: No accessory muscle use. No respiratory distress. Clear to auscultation. Breath sounds equal bilaterally. GASTROINTESTINAL: Abdomen soft, non-tender, nondistended, and no guarding. Hepatic and splenic margins not palpable. Normal bowel sounds 4. No pulsatile mass. MUSCULOSKELETAL: No obvious deformities. No clubbing. No cyanosis. No edema. Full range of motion. No tenderness or crepitus throughout spinal column. NEUROLOGICAL: Awake and alert. No obvious cranial nerve deficits. Motor grossly within normal limits. Normal speech. PSYCHIATRIC: Appropriate mood and affect; insight and judgment normal. Data Data Last Documented VS Vital Signs Date Time Temp Pulse Resp B/P (MAP) Pulse Ox O2 Delivery O2 Flow Rate FiO2 11/13/16 18:56 11/13/16 17:09 16 11/13/16 16:28 114 96 Room Air 11/13/16 11:[address] Brain W/O Iv Contrast(Rout) (11/13/16 ) Ct Cerv Spine W/O Contrast (11/13/16 ) Chest, Single Ap (11/13/16 ) Spine, Lumbar - Ltd (Ap & Lat) (11/13/16 ) Acetamin-Codeine 300-30 Mg (Tylenol-Code (11/13/16 13:30) MDM Medical Decision Making Medical Screen Exam Complete: Yes Emergency Medical Condition: Yes Interpretation(s) Lumbar spine x-ray read by the radiologist shows: Diffuse osteopenia and degenerative changes without evidence of fracture. Chest x-ray read by the radiologist shows: Negative for fracture. The lungs are clear. CT the head read by the radiologist shows: No bleed or other acute intracranial abnormality. CT the cervical spine read by the radiologist shows: Stable degenerative changes. No evidence of fracture. No soft tissue abnormality. Differential Diagnosis Close head injury, intracranial hemorrhage, fracture, strain, contusion, other Narrative Course Patient presents with closed head injury. There was no evidence of cranial or intracranial injury noted on CT of the head and no evidence of fracture or injury to cervical spine on C-spine CT. The patient has been behaving normally and no notable altered mental status. Orchard score of 15. The neurologic exam is normal. The patient is awake and aware and motor sensory exams are normal. There is no clinical evidence to support intracranial injury or bleed. Patient in no obvious distress upon re-evaluation. All pertinent Radiology result(s) discussed with patient. Discussed patient with Dr. John, who saw and evaluated the patient and is in agreement with plan of care and disposition. Any questions/concerns in reference to patient diagnosis/condition discussed and clarified prior to patient's discharge. Reinforced sheer importance of close follow up with patient's primary physician or primary care clinic. Instructed patient to return to ED immediately, if symptoms return/worsen. Pt showed understanding of above instructions. Further instructions and recommendations were detailed in discharge paperwork. Pt left without difficulty out of ED at discharge. Diagnosis Primary Impression: Closed head injury Qualified Codes: S09.90XA - Unspecified injury of head, initial encounter Additional Impression: Fall Qualified Codes: W19.XXXA - Unspecified fall, initial encounter Patient Instructions: Fall Prevention (ED), General Instructions, Head Injury ( ED) Additional Instructions: Follow-up with your primary care physician next week for reevaluation. Return to the emergency department if symptoms get worse. Disposition: 01 DISCHARGE HOME Condition: Stable Simon Perkins Nov 13, 2016 12:04
--- NOTE | 2016-11-13 12:36 | RADRPT ---
EXAM DATE/TIME: 11/13/2016 12:23 [facility] COMPARISON: CHEST SINGLE AP, October 29, 2016, 17:22. INDICATIONS : Fall today. MEDICAL HISTORY : Cardiovascular disease. Hypertension. Dementia.Diabetes Seizures SURGICAL HISTORY : Appendectomy. 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 The cardiomediastinal contours are unremark able. Osseous structures are intact. No fracture visualized. CONCLUSION: No evidence of fracture. The lungs are clear.. Melyssa Vásquez MD on November 13, 2016 at 12:33 Board Certified Radiologist. This report was verified electronically.
--- NOTE | 2016-11-13 12:38 | RADRPT ---
EXAM DATE/TIME: 11/13/2016 12:15 [facility] COMPARISON: PELVIS AP ONLY, August 09, 2016, 20:40. INDICATIONS : Patient fell today, now experiencing right sided lower flank pain. MEDICAL HISTORY : Cardiovascular disease. Hypertension. Dementia.Diabetes Seizures SURGICAL HISTORY : Appendectomy. 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 No visualized fracture. There is curvature of the lumbar spine, apex ri ght with a rotatory left component. There is stable appearance of PACKAGE CHECKER shunt tubing of the right. Cherise shepherd imaged threaded screws through the right femoral neck a persistent 3.5 cm radiopaque structure o verlying the right pelvis. CONCLUSION: Diffuse osteopenia and degenerative changes without evidence of fracture. Melyssa Vásquez MD on November 13, 2016 at 12:35 Board Certified Radiologist. This report was verified electronically.
--- NOTE | 2016-11-13 12:38 | RADRPT ---
EXAM DATE/TIME: 11/13/2016 12:29 [facility] COMPARISON: No previous studies available for comparison. INDICATIONS : Trauma; fall. RADIATION DOSE: 35.74 CTDIvol (mGy) MEDICAL HISTORY : Dementia. Seizures. Cardiovascular disease SURGICAL HISTORY : Appendectomy. AV shunt. ENCOUNTER: Initial ACUITY: 1 day PAIN SCALE: 3/10 LOCATION: Right facial TECHNIQUE: Multiple contiguous axial images were obtained of the head. Using automated exposure control and adj ustment of the mA and/or kV according to patient size, radiation dose was kept as low as reasonably a chievable to obtain optimal diagnostic quality images. DICOM format image data is available electro nically for review and comparison. FINDINGS: CEREBRUM: The ventricles are normal for age. No evidence of midline shift, mass lesion, hemorrhage or acute in farction. No extra-axial fluid collections are seen. Right frontal shunt catheter again noted. POSTERIOR FOSSA: The cerebellum and brainstem are intact. The 4th ventricle is midline. The cerebellopontine angle i s unremarkable. EXTRACRANIAL: The visualized portion of the orbits is intact. SKULL: The calvaria is intact. No evidence of skull fracture. CONCLUSION: No bleed or other acute intracranial abnormality. Rick Kwok MD on November 13, 2016 at 12:35 Board Certified Radiologist. This report was verified electronically.
--- NOTE | 2016-11-13 12:56 | RADRPT ---
EXAM DATE/TIME: 11/13/2016 12:29 [facility] COMPARISON: CT CERVICAL SPINE W/O CONTRAST, August 09, 2016, 20:55. INDICATIONS : Trauma; fall, neck pain. RADIATION DOSE: 17.48 CTDIvol (mGy) MEDICAL HISTORY : Dementia. Stroke Seizures. SURGICAL HISTORY : Appendectomy. AV shunt. ENCOUNTER: Initial ACUITY: 1 day PAIN SCALE: 3/10 LOCATION: neck TECHNIQUE: Volumetric scanning of the cervical spine was performed. Multiplanar reconstructions in the sagittal, coronal and oblique axial planes were performed. Using automated exposure control and adjustment o f the mA and/or kV according to patient size, radiation dose was kept as low as reasonably achievable to obtain optimal diagnostic quality images. DICOM format image data is available electronically f or review and comparison. FINDINGS: VERTEBRAE: Normal vertebral body height. No evidence of fracture. ALIGNMENT: No evidence of subluxation. The bones are normal in mineralization. Stable anterior plate degenerative changes from C4-C7. Stable facet degenerative changes seen at C2/C3 on the right and C3/C4 bilaterally resulting in osseous rik ral foraminal narrowing. Small disc bulges at these levels minimally effacing the anterior aspect of the thecal sac. 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 The adjacent soft tissues are unremarkable. CONCLUSION: Stable degenerative changes. No evidence of fracture. No soft tissue abnormality. Melyssa Vásquez MD on November 13, 2016 at 12:46 Board Certified Radiologist. This report was verified electronically.
[2016-11-13] MEDS ORDERED: ACETAMINOPHEN/CODEINE 300 MG/30 MG TAB PO ONE (13:30)
--- NOTE | 2016-11-13 13:49 | PD ---
Data Data Last Documented VS Vital Signs Date Time Temp Pulse Resp B/P (MAP) Pulse Ox O2 Delivery O2 Flow Rate FiO2 11/13/16 11:23 97.5 95 17 128/68 (88) [address] Brain W/O Iv Contrast(Rout) (11/13/16 ) Ct Cerv Spine W/O Contrast (11/13/16 ) Chest, Single Ap (11/13/16 ) Spine, Lumbar - Ltd (Ap & Lat) (11/13/16 ) Acetamin-Codeine 300-30 Mg (Tylenol-Code (11/13/16 13:30) MDM Supervised Visit with MARILEE: Yes Narrative Course The history, exam, and medical decision-making in the associated mid-level provider note were completed with my assistance. I reviewed and agree with the findings presented. I attest that I had a [id number] encounter with the patient on the same day, and personally performed and documented my assessment and findings in the medical record. *My assessment and Findings: Fall at skilled nursing. Looks well. Complaining of pain in the right shoulder blade. Head and neck are negative. Shoulder is negative. Recommend supportive treatment, fall precautions. Diagnosis Primary Impression: Closed head injury Qualified Codes: S09.90XA - Unspecified injury of head, initial encounter Additional Impression: Fall Qualified Codes: W19.XXXA - Unspecified fall, initial encounter Patient Instructions: General Instructions, Head Injury (ED), Fall Prevention ( ED) Departure Forms: Tests/Procedures Additional Instruction: Follow-up with your primary care physician next week for reevaluation. Return to the emergency department if symptoms get worse. Disposition: 01 DISCHARGE HOME Condition: Stable Nick John MD Nov 13, 2016 13:49
[2016-11-13 14:23] VITALS: BP 128/57; PULSE 64; RESP 16; O2SAT 96
[2016-11-13 16:28] VITALS: BP 95/53; PULSE 114; RESP 16; O2SAT 96
[2016-11-13 17:09] VITALS: RESP 16
== END 2016-11-13 18:56 | disposition home or self-care (01) ==
LOC: NEPC 11:16
DX: S09.90XA Unspecified injury of head, initial encounter (principal); M54.5 Low back pain; M54.6 Pain in thoracic spine; E11.9 Type 2 diabetes mellitus without complications; I10 Essential (primary) hypertension; E78.5 Hyperlipidemia, unspecified; F03.90 Unspecified dementia, unspecified severity, without behavioral disturbance, psychotic disturbance, mood disturbance, and anxiety; W01.0XXA Fall on same level from slipping, tripping and stumbling without subsequent striking against object, initial encounter; Z79.84 Long term (current) use of oral hypoglycemic drugs; Z86.69 Personal history of other diseases of the nervous system and sense organs; Z86.59 Personal history of other mental and behavioral disorders; Z86.79 Personal history of other diseases of the circulatory system; Z87.09 Personal history of other diseases of the respiratory system; Z87.19 Personal history of other diseases of the digestive system; Z87.448 Personal history of other diseases of urinary system
CPT/HCPCS: 70450; 71010; 72100; 72125; 99285

== ENCOUNTER 2016-11-18 07:27 | Inpatient (IN) | payer MEDICARE ==
[~2016-11-18] VITALS: Ht 182.9 cm; Wt 78.5 kg
[2016-11-18] VITALS (8 sets, daily range): BP systolic 130–148; BP diastolic 60–84; PULSE 100–137; RESP 16–20; TEMP 98.3–101.5; O2SAT 90–97
[~2016-11-18 07:27] MED LIST changes: -BACT800T5 PO
[2016-11-18] MEDS ORDERED: SODIUM CHLORIDE 0.9% FLUSH 10 ML FLUSH IVF PRN (07:45)
--- NOTE | 2016-11-18 07:52 | PD ---
HPI Chief Complaint: Fall Time Seen by Provider: 07:37 Travel History International Travel<30 days: No Contact w/Intl Traveler<30days: No Traveled to known affect area: No History of Present Illness HPI Patient is a 81-year-old male with history of dementia, COPD, hydrocephalus with FACILITY PLANNER shunt, urinary retention, diabetes, reflux, esophagitis, presents to emergency room after fall this morning. As per EMS, patient fell out of his bed this morning and fell onto the floor causing a laceration to his left forehead. Patient currently is not on any anticoagulants at this time, patient does have dementia and is alert only to person. Patient with no complaints at this time. Patient appears pleasantly confused, he is moving all his extremities, he is conversive. EMS reports no loss of consciousness after fall. BS 163, EMS reports that patient has been conversive throughout their ride to the ER [facility] Past Medical History Hx Anticoagulant Therapy: No Arthritis: No Asthma: No Autoimmune Disease: No Blood Disorders: No Anxiety: No Depression: Yes Heart Rhythm Problems: No Cancer: No Cardiovascular Problems: Yes High Cholesterol: Yes Chemotherapy: No Chest Pain: No Congestive Heart Failure: No COPD: Yes Cerebrovascular Accident: No Dementia: Yes Diabetes: Yes Patient Takes Glucophage: No Diminished Hearing: No Endocrine: Yes Gastrointestinal Disorders: No GERD: Yes Genitourinary: Yes (urinary retention, urogenital implants) Headaches: Yes Hepatitis: No Hiatal Hernia: No Heparin Induced Thrombocytopen: No Hypertension: Yes Immune Disorder: No Implanted Vascular Access Dvce: Yes Insomnia: Yes Kidney Stones: Yes Musculoskeletal: No Neurologic: Yes (hyrdocecphalus) Psychiatric: No Reproductive: No Respiratory: Yes Immunizations Current: Yes Migraines: No Radiation Therapy: No Renal Failure: No Seizures: Yes Sickle Cell Disease: No Sleep Apnea: No Thyroid Disease: No Triglycerides - High: Yes Ulcer: No Tetanus Vaccination: > 5 Years Past Surgical History Abdominal Surgery: Yes AICD: No Appendectomy: Yes Arteriovenous Shunt: Yes Cardiac Surgery: No Ear Surgery: No Endocrine Surgery: No Eye Surgery: No Genitourinary Surgery: No Gynecologic Surgery: No Insulin Pump: No Joint Replacement: Yes (RIGHT HIP SCREWS ONLY) Neurologic Surgery: Yes (FACILITY PLANNER Shunt) Oral Surgery: No Pacemaker: No Thoracic Surgery: No Other Surgery: Yes (RUPTURED APPENDIX 50 YEARS AGO ) Social History Alcohol Use: No Tobacco Use: No Substance Use: No Allergies-Medications (Allergen,Severity, Reaction): Coded Allergies: *MDRO Multi-Drug Resistant Organism (Verified Adverse Reaction, Unknown, ) 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 Reported Meds & Prescriptions Reported Meds & Active Scripts Active Reported Tylenol (Acetaminophen) 325 Mg Tab 650 Mg PO Q4H PRN Metoprolol Tartrate 25 Mg Tab 6.25 Mg PO BID Miralax (Polyethylene Glycol 3350) 17 Gm Powd.pack 1 Pack PO HS Colace (Docusate Sodium) 100 Mg Capsule 1 Cap PO BID Magnesium Oxide 400 Mg Tab 400 Mg PO DAILY Reglan (Metoclopramide HCl) 10 Mg Tab 5 Mg PO TIDAC Phenergan Supp (Promethazine HCl) 25 Mg Supp 25 Mg RECTAL Q6H PRN Zofran Odt (Ondansetron Odt) 4 Mg Tab 4 Mg SL Q12HR PRN Glimepiride 1 Mg Tab 1 Mg PO DAILY Take with breakfast or first main meal Venlafaxine ER 24 HR (Venlafaxine HCl) 75 Mg Tab 150 Mg PO DAILY Lisinopril 2.5 Mg Tab 2.5 Mg PO DAILY Zocor (Simvastatin) 10 Mg Tab 10 Mg PO DAILY Zantac (Ranitidine HCl) 150 Mg Tab 150 Mg PO DAILY Review of Systems ROS Limitations: Poor Historian General / Constitutional: No: Fever Eyes: No: Visual changes HENT: No: Headaches Cardiovascular: No: Chest Pain or Discomfort Respiratory: No: Shortness of Breath Gastrointestinal: No: Abdominal Pain Genitourinary: No: Dysuria Musculoskeletal: No: Pain Skin: No Rash Neurologic: No: Weakness Psychiatric: No: Depression Endocrine: No: Polydipsia Hematologic/Lymphatic: No: Easy Bruising Physical Exam Narrative GENERAL: Alert to person only, pleasantly demented, SKIN: Focused skin assessment warm/dry. 1.5 cm laceration to left forehead HEAD: Normocephalic. 1.5 cm laceration to left forehead EYES: Pupils equal and round. No scleral icterus. No injection or drainage. ENT: No nasal bleeding or discharge. Mucous membranes pink and moist. slight left sided facial droop NECK: Trachea midline. No JVD. CARDIOVASCULAR: Regular rate and rhythm. No murmur appreciated. RESPIRATORY: No accessory muscle use. Clear to auscultation. Breath sounds equal bilaterally. GASTROINTESTINAL: Abdomen soft, non-tender, nondistended. Hepatic and splenic margins not palpable. MUSCULOSKELETAL: No obvious deformities. No clubbing. No cyanosis. No edema. NEUROLOGICAL: Awake and alert to person only . No obvious cranial nerve deficits. Motor grossly within normal limits. Normal speech. PSYCHIATRIC: Appropriate mood and affect; insight and judgment normal. Data Data Last Documented VS Vital Signs Date Time Temp Pulse Resp B/P (MAP) Pulse Ox O2 Delivery O2 Flow Rate FiO2 11/18/16 07:35 94 Room Air 11/18/16 07:33 98.3 100 20 135/84 (101) Orders Orders Ct Brain W/O Iv Contrast(Rout) (11/18/16 07:37) Ct Cerv Spine W/O Contrast (11/18/16 07:37) Ct Facial Bones W/O Iv Cont (11/18/16 07:37) Bedside Glucose CARLOS.AC&HS (11/18/16 07:37) Prothrombin Time / Inr (Pt) (11/18/16 07:38) Act Partial Throm Time (Ptt) (11/18/16 07:38) Complete Blood Count With Diff (11/18/16 07:38) Comprehensive Metabolic Panel (11/18/16 07:38) Creatine Kinase (Cpk) (11/18/16 07:38) Troponin I (11/18/16 07:38) Urinalysis - C+S If Indicated (11/18/16 07:38) Chest, Single Ap (11/18/16 07:38) Ecg Monitoring (11/18/16 07:38) Iv Access Insert/Monitor (11/18/16 07:38) Oximetry (11/18/16 07:38) Sodium Chloride 0.9% Flush (Ns Flush) (11/18/16 07:45) Consult Neurosurgery (11/18/16 ) Electrocardiogram (11/18/16 ) Urinary Catheter Insert/Apply (11/18/16 08:23) (Hub Use Only)In Phy Cons/Ref (11/18/16 ) Lidocai-Epi 1%-1:100,000 Inj (Xylocaine- (11/18/16 08:45) (Hub Use Only)Inp Phy Cons/Ref (11/18/16 ) Urine Culture (11/18/16 09:27) Ertapenem Inj (Invanz Inj) (11/18/16 10:00) Labs Laboratory Tests Test 11/18/16 07:45 11/18/16 09:27 White Blood Count 17.9 TH/MM3 Red Blood Count 4.75 MIL/MM3 Hemoglobin 13.4 GM/DL Hematocrit 40.4 % Mean Corpuscular Volume 85.2 FL Mean Corpuscular Hemoglobin 28.3 PG Mean Corpuscular Hemoglobin Concent 33.2 % Red Cell Distribution Width 15.0 % Platelet Count 249 TH/MM3 Mean Platelet Volume 8.2 FL Neutrophils (%) (Auto) 85.0 % Lymphocytes (%) (Auto) 5.7 % Monocytes (%) (Auto) 6.7 % Eosinophils (%) (Auto) 2.1 % Basophils (%) (Auto) 0.5 % Neutrophils # (Auto) 15.2 TH/MM3 Lymphocytes # (Auto) 1.0 TH/MM3 Monocytes # (Auto) 1.2 TH/MM3 Eosinophils # (Auto) 0.4 TH/MM3 Basophils # (Auto) 0.1 TH/MM3 CBC Comment DIFF FINAL Differential Comment Prothrombin Time 11.4 SEC Prothromb Time International Ratio 1.0 RATIO Activated Partial Thromboplast Time 25.8 SEC Blood Urea Nitrogen 12 MG/DL Creatinine 1.10 MG/DL Random Glucose 171 MG/DL Total Protein 7.5 GM/DL Albumin 3.3 GM/DL Calcium Level 9.2 MG/DL Alkaline Phosphatase 104 U/L Aspartate Amino Transf (AST/SGOT) 17 U/L Alanine Aminotransferase (ALT/SGPT) 21 U/L Total Bilirubin 0.6 MG/DL Sodium Level 134 MEQ/L Potassium Level 4.3 MEQ/L Chloride Level 96 MEQ/L Carbon Dioxide Level 28.8 MEQ/L Anion Gap 9 MEQ/L Estimat Glomerular Filtration Rate 64 ML/MIN Total Creatine Kinase 130 U/L Troponin I LESS THAN 0.02 NG/ML Urine Color YELLOW Urine Turbidity CLOUDY Urine pH 6.0 Urine Specific [place] 1.025 Urine Protein 100 mg/dL Urine Glucose (UA) NEG mg/dL Urine Ketones NEG mg/dL Urine Occult Blood MOD Urine Nitrite NEG Urine Bilirubin NEG Urine Urobilinogen LESS THAN 2.0 MG/DL Urine Leukocyte Esterase LARGE Urine RBC 61 /hpf Urine WBC /hpf Urine WBC Clumps MANY Urine Squamous Epithelial Cells <1 /hpf Urine Bacteria OCC /hpf Urine Mucus FEW /lpf Microscopic Urinalysis Comment CATH-CULTURE IND MDM Medical Decision Making Medical Screen Exam Complete: Yes Emergency Medical Condition: Yes Medical Record Reviewed: Yes Interpretation(s) EKG at 0824: NSR at 96bpm, qt/qtc: 322/375, no acute st or t wave changes Vital Signs Date Time Temp Pulse Resp B/P (MAP) Pulse Ox O2 Delivery O2 Flow Rate FiO2 11/18/16 07:35 94 Room Air 11/18/16 07:33 98.3 100 20 135/84 (101) 96 Differential Diagnosis Differential includes facial laceration, CVA, hydrocephalus, intracranial hemorrhage, ACS, arrhythmia, UTI, electrolyte abnormality, pneumothorax Narrative Course 81-year-old demented male brought to emergency room from [facility] after he fell out of bed today. Patient is alert to person only, patient with no complete to this time. On evaluation, patient does have 1.5cm laceration to his left forehead, NH reported slurring of speech and possibly facial droop - patient with no slurring of speech in the ER with slight left sided facial droop and no other neurological deficits. BS 163. Patient with questionable TIA versus mechanical fall. Ct of head/neck ordered. Labs including ekg ordered. Will monitor on payroll examiner Last Impressions Chest X-Ray 11/18/16737 Signed Impressions: Service Date/Time: October 07:52 - CONCLUSION: No acute cardiac pulmonary disease. Karsten Bledsoe Jr., MD Maxillofacial CT 11/18/16736 Signed Impressions: Service Date/Time: October 07:44 - CONCLUSION: 1. There is extraconal air within the left orbit with periorbital soft tissue swelling. I' m not clearly able to see a fracture on this study that is slightly limited by motion artifact but I suspect there is an orbital floor fracture without entrapment. Karsten Bledsoe Jr., MD Head CT 11/18/16736 Signed Impressions: Service Date/Time: October 07:44 - CONCLUSION: Thin parafalcine subdural hematoma Rick Ellington MD Cervical Spine CT 11/18/16736 Signed Impressions: Service Date/Time: October 07:44 - CONCLUSION: 1. No fracture or dislocation. 2. Degenerative changes. 3. Calcified plaque involving the carotid arteries. Karsten Bledsoe Jr., MD Laboratory Tests Test 11/18/16 07:45 White Blood Count 17.9 TH/MM3 (4.0-11.0) Red Blood Count 4.75 MIL/MM3 (4.50-5.90) Hemoglobin 13.4 GM/DL (13.0-17.0) Hematocrit 40.4 % (39.0-51.0) Mean Corpuscular Volume 85.2 FL (80.0-100.0) Mean Corpuscular Hemoglobin 28.3 PG (27.0-34.0) Mean Corpuscular Hemoglobin Concent 33.2 % (32.0-36.0) Red Cell Distribution Width 15.0 % (11.6-17.2) Platelet Count 249 TH/MM3 (150-450) Mean Platelet Volume 8.2 FL (7.0-11.0) Neutrophils (%) (Auto) 85.0 % (16.0-70.0) Lymphocytes (%) (Auto) 5.7 % (9.0-44.0) Monocytes (%) (Auto) 6.7 % (0.0-8.0) Eosinophils (%) (Auto) 2.1 % (0.0-4.0) Basophils (%) (Auto) 0.5 % (0.0-2.0) Neutrophils # (Auto) 15.2 TH/MM3 (1.8-7.7) Lymphocytes # (Auto) 1.0 TH/MM3 (1.0-4.8) Monocytes # (Auto) 1.2 TH/MM3 (0-0.9) Eosinophils # (Auto) 0.4 TH/MM3 (0-0.4) Basophils # (Auto) 0.1 TH/MM3 (0-0.2) CBC Comment DIFF FINAL Differential Comment Prothrombin Time 11.4 SEC (9.8-11.6) Prothromb Time International Ratio 1.0 RATIO Activated Partial Thromboplast Time 25.8 SEC (24.3-30.1) Blood Urea Nitrogen 12 MG/DL (7-18) Creatinine 1.10 MG/DL (0.60-1.30) Random Glucose 171 MG/DL (74-106) Total Protein 7.5 GM/DL (6.4-8.2) Albumin 3.3 GM/DL (3.4-5.0) Calcium Level 9.2 MG/DL (8.5-10.1) Alkaline Phosphatase 104 U/L (45-117) Aspartate Amino Transf (AST/SGOT) 17 U/L (15-37) Alanine Aminotransferase (ALT/SGPT) 21 U/L (12-78) Total Bilirubin 0.6 MG/DL (0.2-1.0) Sodium Level 134 MEQ/L (136-145) Potassium Level 4.3 MEQ/L (3.5-5.1) Chloride Level 96 MEQ/L (98-107) Carbon Dioxide Level 28.8 MEQ/L (21.0-32.0) Anion Gap 9 MEQ/L (5-15) Estimat Glomerular Filtration Rate 64 ML/MIN (>89) Total Creatine Kinase 130 U/L (39-308) Troponin I LESS THAN 0.02 NG/ML UA pending - patient chronic fc was changed while in the ER Patient with thin parafalcine subdural hematoma, neurosurgery consulted and called. Plan to admit patient to hospital. Case reviewed with Dr. Galvez who accepts pt to service UA positive for uti, previous cultures from 10/29/16 reviewed, patient grew out enterobacter cloacae and klebsiella oxytoca sensitive to Imipenem - Imipenum ordered Critical Care Narrative Aggregate critical care time was 30 minutes. Time to perform other separately billable procedures was not included in the critical care time. My time did not include minutes spent treating any other patients simultaneously or on activities that did not directly contribute to the patient's treatment. The services I provided to this patient were to treat and/or prevent clinically significant deterioration that could result in: , decompensation, deterioration I provided critical care services requiring my management, as noted below: Chart data review, documentation time, medication orders and management, vital sign assessments/reviewing monitor data, ordering and reviewing lab tests, ordering and interpreting/reviewing x-rays and diagnostic studies, care of the patient and discussion of the patient with the admitting physicians. Diagnosis Primary Impression: Subdural hematoma, acute Additional Impressions: Fracture of orbital wall Qualified Codes: S02.80XA - Fracture of other specified skull and facial bones , unspecified side, initial encounter for closed fracture Facial laceration Qualified Codes: S01.81XA - Laceration without foreign body of other part of head, initial encounter UTI Admitting Information Admitting Physician Requests: Admit Rosabla Louis DO Nov 18, 2016 07:52
--- NOTE | 2016-11-18 07:56 | RADRPT ---
EXAM DATE/TIME: 11/18/2016 07:44 [facility] COMPARISON: CT BRAIN W/O CONTRAST, November 13, 2016, 12:29. INDICATIONS : Fall, laceration to the forehead. RADIATION DOSE: 33.52 CTDIvol (mGy) MEDICAL HISTORY : Diabetes mellitus type 2. Dementia. SURGICAL HISTORY : TECHNICIAN SEMICONDUCTOR DEVELOPMENT shunt ENCOUNTER: Initial ACUITY: 1 day PAIN SCALE: 0/10 LOCATION: cranial TECHNIQUE: Multiple contiguous axial images were obtained of the head. Using automated exposure control and adj ustment of the mA and/or kV according to patient size, radiation dose was kept as low as reasonably a chievable to obtain optimal diagnostic quality images. DICOM format image data is available electro nically for review and comparison. FINDINGS: Right frontal ventriculostomy is present in stable position with tip in the body of right lateral florencio tricle. There is parafalcine hematoma, most prominent along the posterior falx with a thickness of ab out 6 mm. Minimal, predominantly hygromatous fluid is present over the convexities bilaterally. Ventr icles are stable and symmetric. There is no evidence of parenchymal edema or hemorrhage. Slight stabl e gliosis along the course of the ventriculostomy. There is left frontotemporal scalp swelling without evidence of underlying skull fracture. Minimal fl uid layering in the left maxillary sinus CONCLUSION: Thin parafalcine subdural hematoma Rick Ellington MD on November 18, 2016 at 7:51 Board Certified Radiologist. This report was verified electronically.
[2016-11-18 07:58] LABS: AUTOMATED NEUTROPHIL # 15.2 TH/MM3 (1.8-7.7); BASOPHIL # 0.1 TH/MM3 (0-0.2); BASOPHIL % 0.5 % (0.0-2.0); EOSINOPHIL # 0.4 TH/MM3 (0-0.4); EOSINOPHIL % 2.1 % (0.0-4.0); HEMATOCRIT 40.4 % (39.0-51.0); HEMO FLAGS DIFF FINAL; LYMPH % 5.7 % (9.0-44.0); MEAN CELL VOLUME 85.2 FL (80.0-100.0); MEAN CORPUSCULAR HEMOGLOBIN 28.3 PG (27.0-34.0); MEAN CORPUSCULAR HGB CONC 33.2 % (32.0-36.0); MONO % 6.7 % (0.0-8.0); PLATELET COUNT 249 TH/MM3 (150-450); RED BLOOD COUNT 4.75 MIL/MM3 (4.50-5.90); WHITE BLOOD COUNT 17.9 TH/MM3 (4.0-11.0)
[2016-11-18 08:05] LABS: APTT (PATIENT) 25.8 SEC (24.3-30.1); PROTHROMBIN TIME - PATIENT 11.4 SEC (9.8-11.6)
[2016-11-18 08:09] LABS: ALT (GPT) 21 U/L (12-78); ANION GAP 9 MEQ/L (5-15); AST (GOT) 17 U/L (15-37); BICARBONATE 28.8 MEQ/L (21.0-32.0); BLOOD UREA NITROGEN 12 MG/DL (7-18); CHLORIDE 96 MEQ/L (98-107); GLOMERULAR FILTRATION RATE 64 ML/MIN (>89); POTASSIUM 4.3 MEQ/L (3.5-5.1); SODIUM (NA) 134 MEQ/L (136-145)
[2016-11-18 08:13] LABS: ALKALINE PHOSPHATASE 104 U/L (45-117); CREATINE KINASE 130 U/L (39-308); TOTAL BILIRUBIN ADULT 0.6 MG/DL (0.2-1.0)
--- NOTE | 2016-11-18 08:18 | RADRPT ---
EXAM DATE/TIME: 11/18/2016 07:44 [facility] COMPARISON: CT CERVICAL SPINE W/O CONTRAST, August 09, 2016, 20:55. CT CERVICAL SPINE W/O CONTRAST, November 13, 2016 , 12:29. INDICATIONS : Trauma, fall. RADIATION DOSE: 20.90 CTDIvol (mGy) MEDICAL HISTORY : Diabetes mellitus type 2. SURGICAL HISTORY : None. ENCOUNTER: Initial ACUITY: 1 day PAIN SCALE: 5/10 LOCATION: neck TECHNIQUE: Volumetric scanning of the cervical spine was performed. Multiplanar reconstructions in the sagittal, coronal and oblique axial planes were performed. Using automated exposure control and adjustment o f the mA and/or kV according to patient size, radiation dose was kept as low as reasonably achievable to obtain optimal diagnostic quality images. DICOM format image data is available electronically f or review and comparison. FINDINGS: No fracture or dislocation is observed. There is some rotation of C1 relative to C2 but no reshma subl uxation or dislocation. Diffuse degenerative changes previously described are stable. Calcified ather osclerotic plaque of the carotid arteries. 5 mm low-density nodule involving the left lobe of the thy roid. CONCLUSION: 1. No fracture or dislocation. 2. Degenerative changes. 3. Calcified plaque involving the carotid arteries. Karsten Bledsoe Jr., MD on November 18, 2016 at 8:12 Board Certified Radiologist. This report was verified electronically.
--- NOTE | 2016-11-18 08:25 | RADRPT ---
EXAM DATE/TIME: 11/18/2016 07:44 [facility] COMPARISON: No previous studies available for comparison. INDICATIONS : Trauma, fall. RADIATION DOSE: 59.31 CTDIvol (mGy) MEDICAL HISTORY : Diabetes mellitus type 2. 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 Using automated exposure control and adjustme nt of the mA and/or kV according to patient size, radiation dose was kept as low as reasonably achiev able to obtain optimal diagnostic quality images. DICOM format image data is available electronicall y for review and comparison. FINDINGS: There is a small volume of air seen within the extraconal aspects of the left orbit. This projects di rectly adjacent to the superior rectus muscle. Are not able to clearly identify a source of this air. Presumably there is a fracture involving either the lamina preparation or the orbital floor that I a m not able to perceive on this CAT scan. There is some limitations due to motion. There is an air-flu id level involving the left maxillary sinus which is small and therefore I suspect the orbital floor is the most likely culprit. I certainly see no entrapment of the inferior rectus muscle. There is sof t tissue swelling in the periorbital fashion on the left as well as the left temporal region. The lisbet bes are normal. The nasal septum is deviated slightly towards the patient's left but is intact. The r emaining facial bones are intact. CONCLUSION: 1. There is extraconal air within the left orbit with periorbital soft tissue swelling. I'm not clear ly able to see a fracture on this study that is slightly limited by motion artifact but I suspect the re is an orbital floor fracture without entrapment. Karsten Bledsoe Jr., MD on November 18, 2016 at 8:16 Board Certified Radiologist. This report was verified electronically.
--- NOTE | 2016-11-18 08:27 | RADRPT ---
EXAM DATE/TIME: 11/18/2016 07:52 [facility] COMPARISON: CHEST SINGLE AP, November 13, 2016, 12:23. INDICATIONS : Short of breath MEDICAL HISTORY : Cardiovascular disease. diabetic, hypertension, dementia SURGICAL HISTORY : Appendectomy. 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 LOCATION: Bilateral chest FINDINGS: A single portable frontal view the chest shows linear scarring versus atelectasis within the right mi dlung. No infiltrate or effusion. Heart is normal in size. A degenerative spine. A catheter overlies the right chest likely related to a ventriculoperitoneal shunt CONCLUSION: No acute cardiac pulmonary disease. Karsten Bledsoe Jr., MD on November 18, 2016 at 8:25 Board Certified Radiologist. This report was verified electronically.
[2016-11-18] MEDS ORDERED: LIDOCAINE 1%/EPINEPHrine 1:100,000 SOLN 20 ML VIAL INFIL ONE (08:45)
--- NOTE | 2016-11-18 09:06 | PD ---
Physical Exam Date Seen by Provider: Nov 18, 2016 Time Seen by Provider: 09:04 Narrative I was asked by Dr. Louis to assess her repair a laceration to the left lateral forehead sustain by Cynthia MckeonLevi during his fall. Data Data Last Documented VS Vital Signs Date Time Temp Pulse Resp B/P (MAP) Pulse Ox O2 Delivery O2 Flow Rate FiO2 11/18/16 07:35 94 Room Air 11/18/16 07:33 98.3 100 20 135/84 (101) Orders Orders Ct Brain W/O Iv Contrast(Rout) (11/18/16 07:37) Ct Cerv Spine W/O Contrast (11/18/16 07:37) Ct Facial Bones W/O Iv Cont (11/18/16 07:37) Bedside Glucose CARLOS.AC&HS (11/18/16 07:37) Prothrombin Time / Inr (Pt) (11/18/16 07:38) Act Partial Throm Time (Ptt) (11/18/16 07:38) Complete Blood Count With Diff (11/18/16 07:38) Comprehensive Metabolic Panel (11/18/16 07:38) Creatine Kinase (Cpk) (11/18/16 07:38) Troponin I (11/18/16 07:38) Urinalysis - C+S If Indicated (11/18/16 07:38) Chest, Single Ap (11/18/16 07:38) Ecg Monitoring (11/18/16 07:38) Iv Access Insert/Monitor (11/18/16 07:38) Oximetry (11/18/16 07:38) Sodium Chloride 0.9% Flush (Ns Flush) (11/18/16 07:45) Consult Neurosurgery (11/18/16 ) Electrocardiogram (11/18/16 ) Urinary Catheter Insert/Apply (11/18/16 08:23) (Hub Use Only)Inp Phy Cons/Ref (11/18/16 ) Lidocai-Epi 1%-1:100,000 Inj (Xylocaine- (11/18/16 08:45) (Hub Use Only)Inp Phy Cons/Ref (11/18/16 ) Labs Laboratory Tests Test 11/18/16 07:45 White Blood Count 17.9 TH/MM3 Red Blood Count 4.75 MIL/MM3 Hemoglobin 13.4 GM/DL Hematocrit 40.4 % Mean Corpuscular Volume 85.2 FL Mean Corpuscular Hemoglobin 28.3 PG Mean Corpuscular Hemoglobin Concent 33.2 % Red Cell Distribution Width 15.0 % Platelet Count 249 TH/MM3 Mean Platelet Volume 8.2 FL Neutrophils (%) (Auto) 85.0 % Lymphocytes (%) (Auto) 5.7 % Monocytes (%) (Auto) 6.7 % Eosinophils (%) (Auto) 2.1 % Basophils (%) (Auto) 0.5 % Neutrophils # (Auto) 15.2 TH/MM3 Lymphocytes # (Auto) 1.0 TH/MM3 Monocytes # (Auto) 1.2 TH/MM3 Eosinophils # (Auto) 0.4 TH/MM3 Basophils # (Auto) 0.1 TH/MM3 CBC Comment DIFF FINAL Differential Comment Prothrombin Time 11.4 SEC Prothromb Time International Ratio 1.0 RATIO Activated Partial Thromboplast Time 25.8 SEC Blood Urea Nitrogen 12 MG/DL Creatinine 1.10 MG/DL Random Glucose 171 MG/DL Total Protein 7.5 GM/DL Albumin 3.3 GM/DL Calcium Level 9.2 MG/DL Alkaline Phosphatase 104 U/L Aspartate Amino Transf (AST/SGOT) 17 U/L Alanine Aminotransferase (ALT/SGPT) 21 U/L Total Bilirubin 0.6 MG/DL Sodium Level 134 MEQ/L Potassium Level 4.3 MEQ/L Chloride Level 96 MEQ/L Carbon Dioxide Level 28.8 MEQ/L Anion Gap 9 MEQ/L Estimat Glomerular Filtration Rate 64 ML/MIN Total Creatine Kinase 130 U/L Troponin I LESS THAN 0.02 NG/ML MDM Medical Record Reviewed: Yes Supervised Visit with MARILEE: Yes Procedures Procedure Narrative LACERATION LOCATION: Left lateral forehead LENGTH: 2.5 cm NUMBER OF STITCHES/ALLEN: 6 Steri-Strips REPAIR: The area of the laceration was prepped with Betadine and sterilely draped. The wound was copiously irrigated and explored without evidence of foreign body, tendon injury or neurovascular injury. The wound was closed using benzoin tincture and Steri-Strips, this was a single layer repair. The patient was advised to keep the wound site clean and dry. Patient tolerated the procedure well. Diagnosis Primary Impression: Subdural hematoma, acute Additional Impressions: Fracture of orbital wall Qualified Codes: S02.80XA - Fracture of other specified skull and facial bones , unspecified side, initial encounter for closed fracture Facial laceration Qualified Codes: S01.81XA - Laceration without foreign body of other part of head, initial encounter Condition: Stable Steven [place] Nov 18, 2016 09:06
[2016-11-18] MEDS ORDERED: TYLE325T PO (09:08)
[2016-11-18 09:44] LABS: BACTERIA, URINE OCC /hpf; BLOOD, URINE MOD (NEG); GLUCOSE,URINE NEG (NEG); KETONE, URINE NEG (NEG); MUCUS URINE FEW /lpf (OCC); NITRITE,URINE NEG (NEG); SQUAMOUS EPITHELIAL CELL URINE <1 /hpf (0-5); URINE COLOR YELLOW (YELLW/STRAW)
[2016-11-18 09:47] LABS: COMMENT (UR) CATH-CULTURE IND; CULTURE IF INDICATED CATH CULTURE IND
[2016-11-18] MEDS ORDERED: ERTAPENEM SODIUM 1000 MG VIAL IV ONE (10:00)
[2016-11-18] MEDS ORDERED: ERTAPENEM 1,000 MG/NS 100 ML IV ONE ×2 (10:30)
[2016-11-18] MEDS ORDERED: DEXTROSE 50% IN WATER 50 ML VIAL(D50) IV PRN (11:15)
[2016-11-18] MEDS ORDERED: ONDANSETRON HCL 4 MG/2 ML VIAL IV PUSH PRN (11:15)
[2016-11-18] MEDS ORDERED: GLUCAGON 1 MG/ML VIAL OTHER PRN (11:15)
[2016-11-18] MEDS ORDERED: PILL SPLITTER OTHER PRN (11:30)
[2016-11-18] MEDS ORDERED: MISCELLANEOUS PHARMACY INFORMATION XX PRN (12:00)
[2016-11-18] MEDS: METOCLOPRAMIDE HCL 10 MG TAB PO SCH ×2 (12:00→19:39)
[2016-11-18] MEDS ORDERED: ASP: Path resistant to other antimicrobials, culture proven PRN (12:00)
[2016-11-18] MEDS ORDERED: ACETAMINOPHEN 650 MG SUPP RECTAL ONE (13:00)
[2016-11-18] MEDS: INSULIN ASPART SUPPLEMENTAL SCALE SQ SCH ×2 (16:00→21:00)
--- NOTE | 2016-11-18 16:13 | HHI.PR ---
Objective Objective Results - Vital Signs Date Time Temp Pulse Resp B/P (MAP) Pulse Ox O2 Delivery O2 Flow Rate FiO2 11/18/16 13:24 98.6 125 16 135/81 (99) 90 11/18/16 13:04 11/18/16 12:44 101.5 119 20 130/60 (83) 97 Room Air 11/18/16 10:25 116 20 148/70 (96) 97 Room Air 11/18/16 07:35 94 Room Air 11/18/16 07:33 98.3 100 20 135/84 (101) 96 I/O 11/17/16 11/17/16 11/17/16 11/18/16 11/18/16 11/18/16 07:00 15:00 23:00 07:00 15:00 23:00 Intake Total 100 ml Balance 100 ml IV Total 100 ml Result Diagram: 11/18/16 0745 11/18/16 0745 Other Results Laboratory Tests Test 11/18/16 07:45 11/18/16 09:27 White Blood Count 17.9 Red Blood Count 4.75 Hemoglobin 13.4 Hematocrit 40.4 Mean Corpuscular Volume 85.2 Mean Corpuscular Hemoglobin 28.3 Mean Corpuscular Hemoglobin Concent 33.2 Red Cell Distribution Width 15.0 Platelet Count 249 Mean Platelet Volume 8.2 Neutrophils (%) (Auto) 85.0 Lymphocytes (%) (Auto) 5.7 Monocytes (%) (Auto) 6.7 Eosinophils (%) (Auto) 2.1 Basophils (%) (Auto) 0.5 Neutrophils # (Auto) 15.2 Lymphocytes # (Auto) 1.0 Monocytes # (Auto) 1.2 Eosinophils # (Auto) 0.4 Basophils # (Auto) 0.1 CBC Comment DIFF FINAL Differential Comment Prothrombin Time 11.4 Prothromb Time International Ratio 1.0 Activated Partial Thromboplast Time 25.8 Blood Urea Nitrogen 12 Creatinine 1.10 Random Glucose 171 Total Protein 7.5 Albumin 3.3 Calcium Level 9.2 Alkaline Phosphatase 104 Aspartate Amino Transf (AST/SGOT) 17 Alanine Aminotransferase (ALT/SGPT) 21 Total Bilirubin 0.6 Sodium Level 134 Potassium Level 4.3 Chloride Level 96 Carbon Dioxide Level 28.8 Anion Gap 9 Estimat Glomerular Filtration Rate 64 Total Creatine Kinase 130 Troponin I LESS THAN 0.02 Urine Color YELLOW Urine Turbidity CLOUDY Urine pH 6.0 Urine Specific Tram 1.025 Urine Protein 100 Urine Glucose (UA) NEG Urine Ketones NEG Urine Occult Blood MOD Urine Nitrite NEG Urine Bilirubin NEG Urine Urobilinogen LESS THAN 2.0 Urine Leukocyte Esterase LARGE Urine RBC 61 Urine WBC Urine WBC Clumps MANY Urine Squamous Epithelial Cells <1 Urine Bacteria OCC Urine Mucus FEW Microscopic Urinalysis Comment CATH-CULTURE IND Date/Time Source Procedure Growth Status 11/18/16 09:27 Urine Catheterized Urine Urine Culture Pending Received Physical Exam Physical Exam pt is seen & examined d/w PT's at bedside see orders d/w [facility] H&P per woodrow puri f/u Terell Barrera MD Nov 18, 2016 16:13
--- NOTE | 2016-11-18 16:42 | PD.ID.CON ---
History of Present Illness Service ID Consult Requested By Dr Neri Reason for Consult ESBL + UTI Primary Care Physician Unknown Diagnoses: History of Present Illness pt unable to provide history 81 yo male with dementia, NPH with [employer] shunt resides in custodial after fall Pt sustained facial ecchymoses and skin laceration of forehead, he also sustaine TBI with mild subdual hemorrhage Pt presentaed with fever of 101.7 WBC is 17K Urine abnormal with innumerable WBC, bacteria and clx is P Previously , on 10/29 cllx were growing ESBL+ Kleb pneumo, Enterobacter Pt was d/c'd on Sulfamethoxazole-Trimethoprim (Bactrim DS)800-160 Mg Tab1 Tab PO BID #14 TAB Both organisms were R to abctrim Review of Systems ROS Limitations: Clinical Condition, Altered Mental Status Past Family Social History Allergies: Coded Allergies: *MDRO Multi-Drug Resistant Organism (Verified Adverse Reaction, Unknown, ) 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 in 2016 for Pyuria, UTI and kidney stones. Dr. lBedsoe (urology) was consulted for possible suprapubic catheter placement due to BPH w urinary retention. [place] [facility] [place] S[place], found with MRSA in urine Chronic indwelling catheter History of ESBL Large inguinal hernia Past Surgical History Appendectomy ~ 50 years ago HERNIA REPAIR. Indwelling catheter placed 09/20/15 Active Ordered Medications Medications where reviewed in EMR Antibiotics Include: ertapenem Family History Father had epilepsy, mother healthy. Social History Quit both smoking and drinking years ago (1960s). Used to smoke [place] cigars (between 20 to 25) daily since the age of 20; pt reported smoking for 35-40 years No illicit drug use. Is , has grown children. Currently residing at rehabilitation facility. Physical Exam Vital Signs Vital Signs Date Time Temp Pulse Resp B/P (MAP) Pulse Ox O2 Delivery O2 Flow Rate FiO2 11/18/16 13:24 98.6 125 16 135/81 (99) 90 11/18/16 13:04 11/18/16 12:44 101.5 119 20 130/60 (83) 97 Room Air 11/18/16 10:25 116 20 148/70 (96) 97 Room Air 11/18/16 07:35 94 Room Air 11/18/16 07:33 98.3 100 20 135/84 (101) 96 Physical Exam CONSTITUTIONAL/GENERAL: This is an adequately nourished patient, in no apparent distress. TUBES/LINES/DRAINS: SKIN: No jaundice, rashes, or lesions. Facial ecchymoses . Skin temperature appropriate. Not diaphoretic. HEAD: Atraumatic. Normocephalic. EYES: Pupils equal and round and reactive. Extraocular motions intact. No scleral icterus. No injection or drainage. Fundi not examined. ENT: Hearing grossly normal. Nose without bleeding or purulent drainage. Oral mucosae without visible erythema, exudates, masses, or lesions. Edentulous NECK: Trachea midline. . CARDIOVASCULAR: Regular rate and rhythm without murmurs, gallops, or rubs. No JVD. Peripheral pulses symmetric. RESPIRATORY/CHEST: Symmetric, unlabored respirations. Clear to auscultation. Breath sounds equal bilaterally. No wheezes, rales, or rhonchi. GASTROINTESTINAL: Abdomen soft, non-tender, nondistended. No hepato-splenomegaly , or palpable masses. No guarding. Bowel sounds present. GENITOURINARY: Without palpable bladder distension. Anaya catheter in place with fairly clear yellow urine MUSCULOSKELETAL: Extremities without clubbing, cyanosis, or edema. No joint tenderness or effusion noted. No calf tenderness. No mottling or clubbing. LYMPHATICS: No palpable cervical or supraclavicular adenopathy. NEUROLOGICAL: Unresponsive PSYCHIATRIC: unable to assess Laboratory Laboratory Tests Test 11/18/16 07:45 11/18/16 09:27 White Blood Count 17.9 Red Blood Count 4.75 Hemoglobin 13.4 Hematocrit 40.4 Mean Corpuscular Volume 85.2 Mean Corpuscular Hemoglobin 28.3 Mean Corpuscular Hemoglobin Concent 33.2 Red Cell Distribution Width 15.0 Platelet Count 249 Mean Platelet Volume 8.2 Neutrophils (%) (Auto) 85.0 Lymphocytes (%) (Auto) 5.7 Monocytes (%) (Auto) 6.7 Eosinophils (%) (Auto) 2.1 Basophils (%) (Auto) 0.5 Neutrophils # (Auto) 15.2 Lymphocytes # (Auto) 1.0 Monocytes # (Auto) 1.2 Eosinophils # (Auto) 0.4 Basophils # (Auto) 0.1 CBC Comment DIFF FINAL Differential Comment Prothrombin Time 11.4 Prothromb Time International Ratio 1.0 Activated Partial Thromboplast Time 25.8 Blood Urea Nitrogen 12 Creatinine 1.10 Random Glucose 171 Total Protein 7.5 Albumin 3.3 Calcium Level 9.2 Alkaline Phosphatase 104 Aspartate Amino Transf (AST/SGOT) 17 Alanine Aminotransferase (ALT/SGPT) 21 Total Bilirubin 0.6 Sodium Level 134 Potassium Level 4.3 Chloride Level 96 Carbon Dioxide Level 28.8 Anion Gap 9 Estimat Glomerular Filtration Rate 64 Total Creatine Kinase 130 Troponin I LESS THAN 0.02 Urine Color YELLOW Urine Turbidity CLOUDY Urine pH 6.0 Urine Specific [place]une 1.025 Urine Protein 100 Urine Glucose (UA) NEG Urine Ketones NEG Urine Occult Blood MOD Urine Nitrite NEG Urine Bilirubin NEG Urine Urobilinogen LESS THAN 2.0 Urine Leukocyte Esterase LARGE Urine RBC 61 Urine WBC Urine WBC Clumps MANY Urine Squamous Epithelial Cells <1 Urine Bacteria OCC Urine Mucus FEW Microscopic Urinalysis Comment CATH-CULTURE IND Date/Time Source Procedure Growth Status 11/18/16 09:27 Urine Catheterized Urine Urine Culture Pending Received Result Diagram: 11/18/1645 11/18/16744 Imaging Last Impressions Chest X-Ray 11/18/16737 Signed Impressions: Service Date/Time: October 07:52 - CONCLUSION: No acute cardiac pulmonary disease. Karsten Bledsoe Jr., MD Maxillofacial CT 11/18/16736 Signed Impressions: Service Date/Time: October 07:44 - CONCLUSION: 1. There is extraconal air within the left orbit with periorbital soft tissue swelling. I' m not clearly able to see a fracture on this study that is slightly limited by motion artifact but I suspect there is an orbital floor fracture without entrapment. Karsten Bledsoe Jr., MD Head CT 11/18/16736 Signed Impressions: Service Date/Time: October 07:44 - CONCLUSION: Thin parafalcine subdural hematoma Rick Ellington MD Cervical Spine CT 11/18/16736 Signed Impressions: Service Date/Time: October 07:44 - CONCLUSION: 1. No fracture or dislocation. 2. Degenerative changes. 3. Calcified plaque involving the carotid arteries. Karsten Bledsoe Jr., MD Assessment and Plan Assessment and Plan Traumatic brain injury sp fall UTI Recently diagnosed ESBL+ Kleb pneumo/Enterobacter UTI, R to bacrrim -chnage Ertapenem to meropenme fu blood and urine clx Amanda Cope MD Nov 18, 2016 16:42
--- NOTE | 2016-11-18 16:58 | HHI.HP ---
HPI Service [facility] Primary Care Physician Unknown Admission Diagnosis Subdural hematoma Diagnoses: Chief Complaint: FALL Travel History International Travel<30 Days: No Contact w/Intl Traveler <30 Da: No Traveled to Known Affected Are: No History of Present Illness This is a pleasant 81-year-old elderly male with significant past medical history of hypertension, hyperlipidemia, NPH has BP shunt, chronic indwelling catheter, recurrent UTIs, prior admissions for sepsis, MRSA and ESBL infection, early dementia. She presented to the emergency room after he had a fall this morning at a rehabilitation facility. Patient is unable to provide any information, is at bedside providing some details. The rest of the information is obtained from the medical record. Apparently the patient was found on the floor, he was noted with slurred speech and facial droop. According to the , he is usually very good about not getting out of bed however he was actually here in the emergency room on November 13 after he had a fall. At the time he was evaluated and discharge back to the rehabilitation facility. endorses that patient is mostly wheelchair bound and can only ambulate with assistance. He has been at the rehabilitation facility for most of the year because of physical debility, hydrocephalus and a MMA FIGHTER shunt. According to the , he has been complaining of back pain and was supposed to have an MRI of the back. He was also supposed to have his MMA FIGHTER shunt reprogrammed after having an MRI. endorses that he was unable to make it to get his MRI done. He has been somewhat anxious about this. He has a chronic indwelling catheter. EMS was called, patient was evaluated. Patient was found with a laceration to his left forehead. He's not on any anticoagulation. Patient was pleasantly confused and there were no focal deficits noted, he was conversant. Apparently there was no loss of consciousness. Blood sugar was 163. In the emergency room, patient was evaluated. Laceration was closed with benzoin tincture and Steri-Strips. Laboratory workup was completed. Maxillofacial CT show external conal air within the left orbit with periorbital soft tissue swelling. There is a possibility of orbital fracture without entrapment. Head CT show thin parafalcine subdural hematoma. Cervical spine CT no fracture or dislocation, degenerative changes, calcified plaque involving the carotid arteries. CBC remarkable for leukocytosis, WBC 17.9. Urinalysis positive for WBC in clumps and leukocyte esterase. BMP remarkable for mild hyponatremia, sodium 134, glucose 171. Troponin was negative. Patient had a UA done during ED visit that grew Enterobacter cloacae and Klebsiella oxytoca ESBL positive- sensitive to imipenem. He was given Ertapenem. In the emergency room, patient had no slurring, slight left sided facial droop. Patient is edentulous, I do not observe any facial drooping. Neurosurgery was consulted and called by the emergency room physician. At this time, patient is evaluated in the presence of his . Patient is somewhat anxious, he is oriented to self, he is not engaging in much conversation. There is no focal deficits noted, he is following simple commands. wants to continue with full code and aggressive care. He's noted tachycardic, heart rate up to 130s. Patient is admitted for further evaluation and treatment. 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 Dr. Bledsoe (urology) was consulted for possible suprapubic catheter placement due to BPH w urinary retention. Admitted to [facility] 07/06 to 07/09 for Sepsis, found with MRSA in urine Chronic indwelling catheter History of ESBL Large inguinal hernia Past Surgical History Appendectomy ~ 50 years ago HERNIA REPAIR. Indwelling catheter placed 09/20/15 Reported Medications Reported Meds & Active Scripts Active Reported Tylenol (Acetaminophen) 325 Mg Tab 650 Mg PO Q4H PRN Metoprolol Tartrate 25 Mg Tab 6.25 Mg PO BID Miralax (Polyethylene Glycol 3350) 17 Gm Powd.pack 1 Pack PO HS Colace (Docusate Sodium) 100 Mg Capsule 1 Cap PO BID Magnesium Oxide 400 Mg Tab 400 Mg PO DAILY Reglan (Metoclopramide HCl) 10 Mg Tab 5 Mg PO TIDAC Phenergan Supp (Promethazine HCl) 25 Mg Supp 25 Mg RECTAL Q6H PRN Zofran Odt (Ondansetron Odt) 4 Mg Tab 4 Mg SL Q12HR PRN Glimepiride 1 Mg Tab 1 Mg PO DAILY Take with breakfast or first main meal Venlafaxine ER 24 HR (Venlafaxine HCl) 75 Mg Tab 150 Mg PO DAILY Lisinopril 2.5 Mg Tab 2.5 Mg PO DAILY Zocor (Simvastatin) 10 Mg Tab 10 Mg PO DAILY Zantac (Ranitidine HCl) 150 Mg Tab 150 Mg PO DAILY Allergies: Coded Allergies: *MDRO Multi-Drug Resistant Organism (Verified Adverse Reaction, Unknown, ) 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 Active Ordered Medications Inpatient Medications Acetaminophen (Tylenol Supp) 650 mg ONCE ONCE RECTAL Last administered on 11/18t 12:55; Start 11/18/16 at 13:00; Stop 11/18/16 at 13:01; Status DC Acetaminophen (Tylenol) 650 mg Q4H PRN PO FEVER; Start 11/18/16 at 11:00 Dextrose (D50w (Vial) Inj) 50 ml UNSCH PRN IV HYPOGLYCEMIA-SEE COMMENTS; Start 11/18/16 at 11:15 Docusate Sodium (Colace) 100 mg BID PO ; Start 11/18/16 at 21:00 Ertapenem (INVanz INJ) 1,000 mg DAILY IM ; Start 11/19/16 at 09:00; Stop 11/19/16 at 09:00; Status DC Ertapenem 1000 mg/ Sodium Chloride 100 ml @ 200 mls/hr Q24H IV ; Start 11/19/16 at 11:00 Famotidine (Pepcid) 20 mg DAILY PO ; Start 11/19/16 at 09:00 Glucagon (Glucagon Inj) 1 mg UNSCH PRN OTHER HYPOGLYCEMIA-SEE COMMENTS; Start 11/18/16 at 11:15 Insulin Aspart (NovoLOG SUPPLEMENTAL SCALE) 1 ACHS SLIDING SCALE SQ ; Start at 16:00 Lidocaine/ Epinephrine (Xylocaine-Epi 1%-1:100,000 Inj) 30 ml ONCE ONCE INFIL ; Start 11/18/16 at 08:45; Stop 11/18/16 at 08:46; Status DC Lisinopril (Prinivil) 2.5 mg DAILY PO ; Start 11/19/16 at 09:00 Magnesium Oxide (Mag-Ox) 400 mg DAILY PO ; Start 11/19/16 at 09:00 Metoclopramide HCl (Reglan) 5 mg TIDAC PO ; Start 11/18/16 at 12:00 Metoprolol Tartrate (Lopressor) 25 mg Q12HR PO ; Start 11/18/16 at 21:00 Miscellaneous (Pill Splitter) 1 ea UNSCH PRN OTHER SEE LABEL COMMENTS; Start at 11:30 Miscellaneous Medication (ASP Crit: Path resist to other, cult proven) 1 UNSCH X1 PRN .XX PHARMACY DOCUMENTATION; Start 11/18/16 at 12:00; Stop 11/19/16 at 11: 59 Miscellaneous Medication ([facility] Information) 1 UNSCH X1 PRN XX PHARMACY DOCUMENTATION; Start 11/18/16 at 12:00; Stop 11/19/16 at 11:59 Ondansetron HCl (Zofran Inj) 4 mg Q8HR PRN IV PUSH NAUSEA OR VOMITING; Start at 11:15 Polyethylene Glycol (Miralax) 17 gm HS PO ; Start 11/18/16 at 21:00 Pravastatin Sodium (Pravachol) 20 mg DAILY PO ; Start 11/19/16 at 09:00 Sodium Chloride 1,000 ml @ 100 mls/hr Q10H IV ; Start 11/18/16 at 16:00 Sodium Chloride (NS Flush) 2 ml UNSCH PRN IVF FLUSH AFTER USING IV ACCESS; Start 11/18/16 at 07:45 Venlafaxine HCl (Effexor Xr) 150 mg DAILY PO ; Start 11/19/16 at 09:00 Family History Father had epilepsy, mother healthy. Social History Quit both smoking and drinking years ago (1960s). Used to smoke Icelandic cigars ( between 20 to 25) daily since the age of 20; pt reported smoking for 35-40 years No illicit drug use. Is , has grown children. Currently residing at rehabilitation facility. Physical Activity has declined, currently wheelchair bound and ambulates very little. Physical Exam Vital Signs Vital Signs Date Time Temp Pulse Resp B/P (MAP) Pulse Ox O2 Delivery O2 Flow Rate FiO2 11/18/16 13:24 98.6 125 16 135/81 (99) 90 11/18/16 13:04 11/18/16 12:44 101.5 119 20 130/60 (83) 97 Room Air 11/18/16 10:25 116 20 148/70 (96) 97 Room Air 11/18/16 07:35 94 Room Air 11/18/16 07:33 98.3 100 20 135/84 (101) 96 Physical Exam GENERAL: This is a frail, thin built elderly male. SKIN: No rashes, ecchymoses or lesions. Cool and dry. HEAD: Left forehead with laceration, Steri-Strips in place. Left periorbital bruising. EYES: Pupils equal round and reactive. Extraocular motions intact. No scleral icterus. No injection or drainage. ENT: Nose without bleeding, purulent drainage or septal hematoma. Throat without erythema, tonsillar hypertrophy or exudate. Uvula midline. Airway patent. NECK: Trachea midline. No JVD or lymphadenopathy. Supple, nontender, no meningeal signs. CARDIOVASCULAR: S1 and S2, sinus tachycardia. No rubs, no gallops, no murmurs. RESPIRATORY: Poor inspiratory effort. Essentially clear breath sounds. GASTROINTESTINAL: Abdomen soft, non-tender, nondistended. No hepato-splenomegaly , or palpable masses. No guarding. MUSCULOSKELETAL: Extremities without clubbing, cyanosis, or edema. No joint tenderness, effusion, or edema noted. No calf tenderness. Negative Homans sign bilaterally. NEUROLOGICAL: Does not want to open eyes, occasionally speaks to . Oriented to self. Edentulous, difficult to understand. Moving all extremities. Not following Commands consistently. No focal deficits noted. Laboratory Laboratory Tests Test 11/18/16 07:45 11/18/16 09:27 White Blood Count 17.9 Red Blood Count 4.75 Hemoglobin 13.4 Hematocrit 40.4 Mean Corpuscular Volume 85.2 Mean Corpuscular Hemoglobin 28.3 Mean Corpuscular Hemoglobin Concent 33.2 Red Cell Distribution Width 15.0 Platelet Count 249 Mean Platelet Volume 8.2 Neutrophils (%) (Auto) 85.0 Lymphocytes (%) (Auto) 5.7 Monocytes (%) (Auto) 6.7 Eosinophils (%) (Auto) 2.1 Basophils (%) (Auto) 0.5 Neutrophils # (Auto) 15.2 Lymphocytes # (Auto) 1.0 Monocytes # (Auto) 1.2 Eosinophils # (Auto) 0.4 Basophils # (Auto) 0.1 CBC Comment DIFF FINAL Differential Comment Prothrombin Time 11.4 Prothromb Time International Ratio 1.0 Activated Partial Thromboplast Time 25.8 Blood Urea Nitrogen 12 Creatinine 1.10 Random Glucose 171 Total Protein 7.5 Albumin 3.3 Calcium Level 9.2 Alkaline Phosphatase 104 Aspartate Amino Transf (AST/SGOT) 17 Alanine Aminotransferase (ALT/SGPT) 21 Total Bilirubin 0.6 Sodium Level 134 Potassium Level 4.3 Chloride Level 96 Carbon Dioxide Level 28.8 Anion Gap 9 Estimat Glomerular Filtration Rate 64 Total Creatine Kinase 130 Troponin I LESS THAN 0.02 Urine Color YELLOW Urine Turbidity CLOUDY Urine pH 6.0 Urine Specific Jackson 1.025 Urine Protein 100 Urine Glucose (UA) NEG Urine Ketones NEG Urine Occult Blood MOD Urine Nitrite NEG Urine Bilirubin NEG Urine Urobilinogen LESS THAN 2.0 Urine Leukocyte Esterase LARGE Urine RBC 61 Urine WBC Urine WBC Clumps MANY Urine Squamous Epithelial Cells <1 Urine Bacteria OCC Urine Mucus FEW Microscopic Urinalysis Comment CATH-CULTURE IND Date/Time Source Procedure Growth Status 11/18/16 09:27 Urine Catheterized Urine Urine Culture Pending Received Result Diagram: 11/18/1645 11/18/16744 Imaging Last Impressions Chest X-Ray 11/18/16737 Signed Impressions: Service Date/Time: October 07:52 - CONCLUSION: No acute cardiac pulmonary disease. Karsten Bledsoe Jr., MD Maxillofacial CT 11/18/16736 Signed Impressions: Service Date/Time: October 07:44 - CONCLUSION: 1. There is extraconal air within the left orbit with periorbital soft tissue swelling. I' m not clearly able to see a fracture on this study that is slightly limited by motion artifact but I suspect there is an orbital floor fracture without entrapment. Karsten Bledsoe Jr., MD Head CT 11/18/16736 Signed Impressions: Service Date/Time: October 07:44 - CONCLUSION: Thin parafalcine subdural hematoma Rick Ellington MD Cervical Spine CT 11/18/16736 Signed Impressions: Service Date/Time: October 07:44 - CONCLUSION: 1. No fracture or dislocation. 2. Degenerative changes. 3. Calcified plaque involving the carotid arteries. Karsten Green Jr., MD Caprini VTE Risk Assessment Caprini VTE Risk Assessment: Mod/High Risk (score >= 2) VTE Pharm Contraindication: subdural hematoma. Caprini Risk Assessment Model Point Value = 1 Point Value = 2 Point Value = 3 Point Value = 5 Age 41-60 Minor surgery BMI > 25 kg/m2 Swollen legs Varicose veins or History of unexplained or recurrent spontaneous Oral contraceptives or hormone replacement Sepsis (< 1 month) Serious lung disease, including pneumonia (< 1 month) Abnormal pulmonary function Acute myocardial infarction Congestive heart failure (< 1 month) History of inflammatory bowel disease Medical patient at bed rest Age 61-74 Arthroscopic surgery Major open surgery (> 45 min) Laparoscopic surgery (> 45 min) Malignancy Confined to bed (> 72 hours) Immobilizing plaster cast Central venous access Age >= 75 History of VTE Family history of VTE Factor V Leiden Prothrombin [id number] Lupus anticoagulant Anticardiolipin antibodies Elevated serum homocysteine Heparin-induced thrombocytopenia Other congenital or acquired thrombophilia Stroke (< 1 month) Elective arthroplasty Hip, pelvis, or leg fracture Acute spinal cord injury (< 1 month) Prophylaxis Regimen Total Risk Factor Score Risk Level Prophylaxis Regimen 0-1 Low Early ambulation 2 Moderate Order ONE of the following: *Sequential Compression Device (SCD) *Heparin 5000 units SQ BID 3-4 Higher Order ONE of the following medications: *Heparin 5000 units SQ TID *Enoxaparin/Lovenox 40 mg SQ daily (WT < 150 kg, CrCl > 30 mL/min) *Enoxaparin/Lovenox 30 mg SQ daily (WT < 150 kg, CrCl > 10-29 mL/min) *Enoxaparin/Lovenox 30 mg SQ BID (WT < 150 kg, CrCl > 30 mL/min) AND/OR *Sequential Compression Device (SCD) 5 or more Highest Order ONE of the following medications: *Heparin 5000 units SQ TID (Preferred with Epidurals) *Enoxaparin/Lovenox 40 mg SQ daily (WT < 150 kg, CrCl > 30 mL/min) *Enoxaparin/Lovenox 30 mg SQ daily (WT < 150 kg, CrCl > 10-29 mL/min) *Enoxaparin/Lovenox 30 mg SQ BID (WT < 150 kg, CrCl > 30 mL/min) AND *Sequential Compression Device (SCD) Assessment and Plan Problem List: (1) Fall ICD Codes: W19.XXXA - Unspecified fall, initial encounter Status: Acute (2) Facial laceration ICD Codes: S01.81XA - Laceration without foreign body of other part of head, initial encounter Status: Acute (3) Subdural hematoma, acute ICD Codes: I62.01 - Nontraumatic acute subdural hemorrhage Status: Acute (4) Fracture of orbital wall ICD Codes: S02.80XA - Fracture of other specified skull and facial bones, unspecified side, initial encounter for closed fracture Status: Acute (5) Tachycardia ICD Codes: R00.0 - Tachycardia, unspecified Status: Acute (6) Frequent falls ICD Codes: R29.6 - Recurrent falls Status: Chronic (7) Ataxia ICD Codes: R27.0 - Ataxia Status: Acute (8) NPH (normal pressure hydrocephalus) ICD Codes: G91.2 - Normal pressure hydrocephalus Status: Chronic (9) Diabetes ICD Codes: E11.9 - Diabetes mellitus Status: Chronic (10) BPH (benign prostatic hyperplasia) ICD Codes: N40.0 - Benign prostatic hyperplasia Status: Chronic (11) Peripheral neuropathy ICD Codes: G62.9 - Peripheral neuropathy Status: Chronic (12) Hyperlipidemia ICD Codes: E78.5 - Hyperlipidemia Status: Chronic (13) Hypertension ICD Codes: I10 - Hypertension Status: Chronic (14) S/P MMA FIGHTER shunt ICD Codes: Z98.2 - Status post ventriculoperitoneal shunt Status: Resolved (15) Chronic indwelling Anaya catheter ICD Codes: Z92.89 - Personal history of other medical treatment Status: Chronic (16) Urinary tract infection ICD Codes: N39.0 - Urinary tract infection, site not specified Status: Acute (17) Impaired cognition ICD Codes: R41.89 - Impaired cognition Status: Chronic Assessment and Plan Admit to Dr. Barrera 81-year-old elderly male with history of NPH has MMA FIGHTER shunt, recurrent falls, dementia, peripheral neuropathy, physical debility, recurrent UTIs and sepsis. Subdural hematoma, status post fall Left forehead laceration Left orbital floor fracture without entrapment per CT finding -Neurosurgery has been consulted for evaluation -Continue neuro checks -Fall precautions -Avoid any anticoagulation Recurrent UTI, chronic indwelling catheter. Urine culture positive for Enterobacter cloacae, Klebsiella oxytoca ESBL positive. -Continue with ertapenem -We will add Vanco 1 GM x 1 -Consult infectious disease for evaluation -Anaya catheter has been changed in the emergency room Tachycardia, patient on beta blockers -Continuous cardiac telemetry monitoring -We will give Lopressor 25 mg by mouth daily and resume home dosage. Altered mental status, likely multifactorial, no evidence of stroke. NPH with MMA FIGHTER shunt Continue with neuro checks Consult neurosurgery for evaluation of MMA FIGHTER shunt Type 2 diabetes Accu-Cheks before meals and at bedtime with insulin therapy Hypertension, stable -Resume home medications Hyperlipidemia Continue with home medications Home medications reviewed, initiated as indicated SCDs for DVT prophylaxis, avoid anticoagulation Physical therapy consulted for evaluation and treatment after he is evaluated by neurosurgery Plan of care has been discussed with patient and family, RN, attending. Further management of the patient will be dependent on the hospital course Condition is guarded Patient's condition appears to be declining, wants to continue with full code and aggressive care. Patient requires inpatient admission for anticipated stay greater than 2 days for recurrent fall with subdural hematoma, recurrent UTI. Patient is at risk for complications due to advanced age and comorbidities that can potentially lead to further neurological decline, sepsis, possibly . Patient requires admission for IV antibiotics, evaluation by infectious disease, lab workup, valuation by neurosurgery, serial CT scan of the brain. Anticipated discharge back to SNF in stable This patient was seen by myself and Dr. Barrera, this H&P is written on his behalf Physician Certification 2 Midnight Certification Type: Admission for Inpatient Services Order for Inpatient Services The services are ordered in accordance with Medicare regulations or non- Medicare payer requirements, as applicable. In the case of services not specified as inpatient-only, they are appropriately provided as inpatient services in accordance with the 2-midnight benchmark. Estimated LOS (days): 2 2 days is the estimated time the patient will need to remain in the hospital, assuming treatment plan goals are met and no additional complications. Post-Hospital Plan: SNF Problem Qualifiers (1) Fall: Qualified Codes: W19.XXXA - Unspecified fall, initial encounter (2) Facial laceration: Qualified Codes: S01.81XA - Laceration without foreign body of other part of head, initial encounter (3) Fracture of orbital wall: Qualified Codes: S02.80XA - Fracture of other specified skull and facial bones , unspecified side, initial encounter for closed fracture (4) Diabetes: Qualified Codes: E11.8 - Type 2 diabetes mellitus with unspecified complications (5) Peripheral neuropathy: Qualified Codes: G62.9 - Polyneuropathy, unspecified (6) Hyperlipidemia: Qualified Codes: E78.5 - Hyperlipidemia, unspecified (7) Hypertension: Qualified Codes: I10 - Essential (primary) hypertension (8) Urinary tract infection: Qualified Codes: T83.511D - Infection and inflammatory reaction due to indwelling urethral catheter, subsequent encounter; N39.0 - Urinary tract infection, site not specified Joan Martinez Nov 18, 2016 16:58
[2016-11-18] MEDS ORDERED: VANCOMYCIN INJ 1,000 MG in SODIUM CHLOR 0.9% 250 ML INJ 250 ML IV ONE (17:00)
[2016-11-18 17:05] LABS: AUTOMATED NEUTROPHIL # 12.4 TH/MM3 (1.8-7.7); BASOPHIL % 0.2 % (0.0-2.0); EOSINOPHIL % 0.3 % (0.0-4.0); HEMATOCRIT 39.9 % (39.0-51.0); HEMO FLAGS DIFF FINAL; LYMPH % 7.6 % (9.0-44.0); LYMPHOCYTE # 1.1 TH/MM3 (1.0-4.8); MEAN CELL VOLUME 84.2 FL (80.0-100.0); MEAN CORPUSCULAR HEMOGLOBIN 27.4 PG (27.0-34.0); MEAN CORPUSCULAR HGB CONC 32.5 % (32.0-36.0); MONO % 7.2 % (0.0-8.0); NEUT % 84.7 % (16.0-70.0); PLATELET COUNT 231 TH/MM3 (150-450); RED BLOOD COUNT 4.73 MIL/MM3 (4.50-5.90); RED CELL DISTRIBUTION WIDTH 14.9 % (11.6-17.2); WHITE BLOOD COUNT 14.7 TH/MM3 (4.0-11.0)
[2016-11-18 17:32] LABS: ANION GAP 10 MEQ/L (5-15); BICARBONATE 25.9 MEQ/L (21.0-32.0); BLOOD UREA NITROGEN 14 MG/DL (7-18); CHLORIDE 96 MEQ/L (98-107); GLOMERULAR FILTRATION RATE 63 ML/MIN (>89); POTASSIUM 4.4 MEQ/L (3.5-5.1); SODIUM (NA) 132 MEQ/L (136-145)
[2016-11-18 17:34] LABS: ALT (GPT) 21 U/L (12-78); AST (GOT) 18 U/L (15-37)
[2016-11-18 17:35] LABS: ALKALINE PHOSPHATASE 99 U/L (45-117); TOTAL BILIRUBIN ADULT 0.7 MG/DL (0.2-1.0)
--- NOTE | 2016-11-18 17:58 | EKG ---
Date Performed: 11/18/2016 Time Performed: 08:24:46 PTAGE: 81 years EKG: Sinus rhythm NORMAL ECG Compared to prior tracing no significant change PREVIOUS TRACING : 07/06/2016 14.19 DOCTOR: Alessandro Braun Interpretating Date/Time 11/18/2016 17:56:58
[2016-11-18] MEDS ORDERED: METOPROLOL TARTRATE 25 MG TAB PO ONE (18:15)
[2016-11-18] MEDS: SODIUM CHLOR 0.9% 1000 ML INJ 1,000 ML IV SCH (18:29)
[2016-11-18] MEDS: METOPROLOL TARTRATE 25 MG TAB PO SCH (22:10)
[2016-11-18] MEDS: DOCUSATE SODIUM 100 MG CAP PO SCH (22:11)
[2016-11-18] MEDS: ACETAMINOPHEN 325 MG TAB PO PRN (22:11)
[2016-11-18] MEDS: POLYETHYLENE GLYCOL 17 GM PKG PO SCH (22:13)
--- NOTE | 2016-11-18 22:28 | MB ---
cc: YOHANNES RUIZ DATE OF CONSULTATION 11/18/2016 REASON FOR CONSULTATION Occipital interhemispheric subdural hemorrhages. HISTORY OF PRESENT ILLNESS An 81-year-old gentleman with a history of dementia and normal pressure hydrocephalus who currently resides in a fdc. He apparently fell at the fdc and struck the left side of his head with a forehead laceration and was brought to [facility] for further evaluation. CT scan of the head reveals small para-falcine occipital subdural hemorrhage without mass effect or midline shift. CT of the cerebral spine does not reveal any fractures. Maxillofacial CT scan revealed the possibility of a fracture involving the orbit floor without any entrapment. The patient is here with his and has been lethargic but does arouse and follow simple commands. She informs me that he has been actively followed by Dr. Shah and last saw him two weeks ago and is scheduled to get another followup MRI scan and visit subsequently. He has had a RIVER TESTER shunt placement for normal pressure hydrocephalus in March 2014. The patient has a very dysarthric speech and cannot relate much of a history. PAST MEDICAL HISTORY 1. Dementia, 2. Normal pressure hydrocephalus status post RIVER TESTER shunt placement in February of 2015, 3. COPD, 4. Urinary retention, 5. Diabetes mellitus, 6. Esophagitis, 7. Gastroesophageal reflux, 8. Hyperlipidemia, 9. Hypertension, 10. Appendectomy, 11. Right hip ORIF MEDICATIONS 1. Venlafaxine 150 mg daily, 2. Zocor 10 mg daily, 3. Zantac 150 mg daily, 4. Phenergan suppository q.6 h p.r.n. 5. MiraLax 17 grams q.h.s. 6. Zofran 4 mg sublingual q 12 hours p.r.n., 7. Metoprolol 6.25 mg b.i.d. 8. Reglan 10 mg t.i.d., 9. Magnesium 400 mg daily, 10. Lisinopril 2.5 mg daily, 11. Glimepiride 1 mg daily, 12. Colace 100 mg b.i.d., 13. Tylenol 650 mg q.4 h p.r.n. ALLERGIES NO KNOWN DRUG ALLERGIES. SOCIAL HISTORY He is . He resides in a fdc. He is retired. No alcohol or tobacco use. REVIEW OF SYSTEMS Limited because of the patient's lethargy and dysarthria. LABORATORY FINDINGS White blood cell count 14.7, hemoglobin 13, platelet count 231, PT 11.4, INR 1.0, PTT 25.8. Sodium 134, potassium 4.3, BUN 12, creatinine 1.1, glucose 171. Urinalysis was indicative of a possible urinary tract infection. Cultures are pending. PHYSICAL EXAMINATION VITAL SIGNS: Temperature 98.6, pulse 125, respiratory rate 16, blood pressure 135/81, oxygen saturation 90% on room air. HEAD: He has a left periorbital ecchymosis and some swelling along with a left forehead laceration which has been Steri-Stripped. NECK: Supple. CHEST: Clear bilaterally HEART: Tachycardia, normal S1, S2. ABDOMEN: Soft, nontender. EXTREMITIES: No gross deformities. NEUROLOGIC: He is lethargic but arouses to verbal stimulation. Pupils are equal, reactive. He is missing his teeth but no significant facial droop Is noted. His speech is very dysarthric and almost incomprehensible. he moves all four extremities, although will not cooperate for the muscle strength evaluation. Equivocal Babinski response. He relates with a very dysarthric speech that he is in somewhat of a fdc and he is not oriented. IMPRESSION 1. 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 He has a right frontal ventriculoperitoneal shunt placement with the ventricular catheter in position and no hydrocephalus noted. 2. Multiple medical comorbidities including dementia and a fdc resident. PLAN The patient does not require any neurosurgical intervention. Recommend observation and rehabilitation and increase activity status as tolerated with physical therapy safety evaluation. We will obtain a followup CT scan tomorrow to rule out any progression of the small subdural hemorrhage. If this is stable, he can be discharged back to his fdc facility and follow up with Dr. Shah in outpatient setting as scheduled. MD LESLEY Adame/ /5:13 PM /10:08 PM
[2016-11-19] VITALS (7 sets, daily range): BP systolic 115–157; BP diastolic 57–74; PULSE 79–111; RESP 14–20; TEMP 97.1–100; O2SAT 92–96
[2016-11-19] MEDS ORDERED: MISCELLANEOUS PHARMACY INFORMATION XX PRN (00:45)
[2016-11-19] MEDS ORDERED: ASP: Documented ESBL, MDR A baumannii or P. aeruginosa PRN (00:45)
[2016-11-19] MEDS: SODIUM CHLOR 0.9% 1000 ML INJ 1,000 ML IV SCH ×3 (02:00→22:39)
[2016-11-19] MEDS: MEROPENEM INJ 1,000 MG in SODIUM CHLORIDE 0.9% INJ 100 ML IV SCH ×3 (06:40→18:14)
[2016-11-19] MEDS: INSULIN ASPART SUPPLEMENTAL SCALE SQ SCH ×4 (06:50→21:00)
[2016-11-19] MEDS ORDERED: ERTAPENEM SODIUM 1000 MG VIAL IM SCH (09:00)
--- NOTE | 2016-11-19 09:53 | RADRPT ---
EXAM DATE/TIME: 11/19/2016 09:19 [place] COMPARISON: CT BRAIN W/O CONTRAST, November 18, 2016, 7:44. INDICATIONS : Recent history of occipital interhemispheric subdural hemorrhages RADIATION DOSE: 43.84 CTDIvol (mGy) MEDICAL HISTORY : Hypertension. Chronic obstructive pulmonary disease. 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 ENCOUNTER: Subsequent ACUITY: 2 days PAIN SCALE: 2/10 LOCATION: cranial TECHNIQUE: Multiple contiguous axial images were obtained of the head. Using automated exposure control and adj ustment of the mA and/or kV according to patient size, radiation dose was kept as low as reasonably a chievable to obtain optimal diagnostic quality images. DICOM format image data is available electro nically for review and comparison. FINDINGS: Ventriculostomy is in good position. Small hygromas are evident slightly larger in the interval. Th e parafalcine subdural hematoma posteriorly is decreasing in size. There is no appreciable hemorrhag e. Small punctate collection of air is present in the sagittal sinus. Posterior fossa is unremarkable. CONCLUSION: Small parafalcine subdural decreasing in size. Small bilateral hygromas slightly lar gisel. Heraclio Marrufo MD FACR on November 19, 2016 at 9:49 Board Certified Radiologist. This report was verified electronically.
[2016-11-19] MEDS: PRAVASTATIN SOD 20 MG TAB PO SCH (09:59)
[2016-11-19] MEDS: FAMOTIDINE 20 MG TAB PO SCH (09:59)
[2016-11-19] MEDS: VENLAFAXINE HCL XR 75 MG CAP PO SCH (09:59)
[2016-11-19] MEDS: METOPROLOL TARTRATE 25 MG TAB PO SCH ×3 (10:00→22:38)
[2016-11-19] MEDS: LISINOPRIL 5 MG TAB PO SCH (10:00)
[2016-11-19] MEDS: MAGNESIUM OXIDE 400 MG TAB PO SCH (10:00)
[2016-11-19] MEDS: METOCLOPRAMIDE HCL 10 MG TAB PO SCH ×3 (10:01→18:23)
[2016-11-19] MEDS: DOCUSATE SODIUM 100 MG CAP PO SCH ×2 (10:01→21:00)
[2016-11-19 10:41] LABS: HEMATOCRIT 38.7 % (39.0-51.0); MEAN CELL VOLUME 85.4 FL (80.0-100.0); MEAN CORPUSCULAR HEMOGLOBIN 27.8 PG (27.0-34.0); MEAN CORPUSCULAR HGB CONC 32.5 % (32.0-36.0); PLATELET COUNT 191 TH/MM3 (150-450); RED BLOOD COUNT 4.53 MIL/MM3 (4.50-5.90); RED CELL DISTRIBUTION WIDTH 15.3 % (11.6-17.2); REVIEW FLAG FINAL; WHITE BLOOD COUNT 12.9 TH/MM3 (4.0-11.0)
[2016-11-19] MEDS ORDERED: ERTAPENEM INJ 1,000 MG in SODIUM CHLORIDE 0.9% INJ 100 ML IV SCH (11:00)
[2016-11-19 11:19] LABS: BICARBONATE 27.8 MEQ/L (21.0-32.0)
--- NOTE | 2016-11-19 11:57 | HHI.PR ---
Subjective Remarks back from CT keeping eyes closed, oriented to self and place following simple commands more awake today passed swallow eval not as agitated no family at bsd ST on monitor, HR improved Fever overnight, max 101 Objective Objective Results - Vital Signs Date Time Temp Pulse Resp B/P (MAP) Pulse Ox O2 Delivery O2 Flow Rate FiO2 11/19/16 08:28 97.6 82 20 137/64 (88) 96 11/19/16 04:49 98.2 87 14 116/62 (80) 95 11/19/16 02:09 98.6 95 16 115/57 (76) 94 11/19/16 00:54 98.2 111 18 121/69 (86) 92 11/18/16 21:25 101.0 120 20 137/68 (91) 91 11/18/16 20:00 127 11/18/16 16:37 137 11/18/16 16:00 99.2 131 16 137/81 (99) 91 11/18/16 13:24 98.6 125 16 135/81 (99) 90 11/18/16 13:04 11/18/16 12:44 101.5 119 20 130/60 (83) 97 Room Air I/O 11/18/16 11/18/16 11/18/16 11/19/16 11/19/16 11/19/16 07:00 15:00 23:00 07:00 15:00 23:00 Intake Total 100 ml Output Total 650 ml 200 ml Balance 100 ml -650 ml -200 ml IV Total 100 ml Output Urine Total 650 ml 200 ml # Bowel Movements 2 Result Diagram: 11/19/16 1008 11/19/16 1008 Imaging Last Impressions Chest X-Ray 11/18/16737 Signed Impressions: Service Date/Time: October 07:52 - CONCLUSION: No acute cardiac pulmonary disease. Karsten Bledsoe Jr., MD Maxillofacial CT 11/18/1637 Signed Impressions: Service Date/Time: October 07:44 - CONCLUSION: 1. There is extraconal air within the left orbit with periorbital soft tissue swelling. I' m not clearly able to see a fracture on this study that is slightly limited by motion artifact but I suspect there is an orbital floor fracture without entrapment. Karsten Bledseo Jr., MD Head CT 11/18/16736 Signed Impressions: Service Date/Time: October 07:44 - CONCLUSION: Thin parafalcine subdural hematoma Rick Ellington MD Cervical Spine CT 11/18/16736 Signed Impressions: Service Date/Time: October 07:44 - CONCLUSION: 1. No fracture or dislocation. 2. Degenerative changes. 3. Calcified plaque involving the carotid arteries. Karsten Bledsoe Jr., MD Other Results Laboratory Tests Test 11/18/16 16:20 11/19/16 10:08 White Blood Count 14.7 12.9 Red Blood Count 4.73 4.53 Hemoglobin 13.0 12.6 Hematocrit 39.9 38.7 Mean Corpuscular Volume 84.2 85.4 Mean Corpuscular Hemoglobin 27.4 27.8 Mean Corpuscular Hemoglobin Concent 32.5 32.5 Red Cell Distribution Width 14.9 15.3 Platelet Count 231 191 Mean Platelet Volume 7.9 7.6 Neutrophils (%) (Auto) 84.7 Lymphocytes (%) (Auto) 7.6 Monocytes (%) (Auto) 7.2 Eosinophils (%) (Auto) 0.3 Basophils (%) (Auto) 0.2 Neutrophils # (Auto) 12.4 Lymphocytes # (Auto) 1.1 Monocytes # (Auto) 1.1 Eosinophils # (Auto) 0.0 Basophils # (Auto) 0.0 CBC Comment DIFF FINAL Differential Comment Blood Urea Nitrogen 14 18 Creatinine 1.12 1.03 Random Glucose 153 133 Total Protein 7.2 Albumin 3.2 Calcium Level 9.3 8.5 Alkaline Phosphatase 99 Aspartate Amino Transf (AST/SGOT) 18 Alanine Aminotransferase (ALT/SGPT) 21 Total Bilirubin 0.7 Sodium Level 132 135 Potassium Level 4.4 4.0 Chloride Level 96 99 Carbon Dioxide Level 25.9 27.8 Anion Gap 10 8 Estimat Glomerular Filtration Rate 63 69 Date/Time Source Procedure Growth Status 11/18/16 16:26 Blood Other Aerobic Blood Culture - Preliminary NO GROWTH IN 1 DAY Resulted 11/18/16 16:26 Blood Other Anaerobic Blood Culture - Preliminary NO GROWTH IN 1 DAY Resulted 11/18/16 09:27 Urine Catheterized Urine Urine Culture Pending Received ROS General: Other (12 point ROS unable to obtain ) Physical Exam Physical Exam GENERAL: This is a frail, thin built elderly male. SKIN: No rashes, ecchymoses or lesions. Cool and dry. HEAD: Left forehead with laceration, Steri-Strips in place. Left periorbital bruising. EYES: Pupils equal round and reactive. Extraocular motions intact. No scleral icterus. No injection or drainage. ENT: Nose without bleeding, purulent drainage or septal hematoma. Throat without erythema, tonsillar hypertrophy or exudate. Uvula midline. Airway patent. NECK: Trachea midline. No JVD or lymphadenopathy. Supple, nontender, no meningeal signs. CARDIOVASCULAR: S1 and S2, sinus tachycardia. No rubs, no gallops, no murmurs. RESPIRATORY: Poor inspiratory effort. Essentially clear breath sounds. GASTROINTESTINAL: Abdomen soft, non-tender, nondistended. No hepato-splenomegaly , or palpable masses. No guarding. MUSCULOSKELETAL: Extremities without clubbing, cyanosis, or edema. No joint tenderness, effusion, or edema noted. No calf tenderness. Negative Homans sign bilaterally. NEUROLOGICAL: attempts to open eyes, oriented to self and place, follows simple one step commands, no focal deficits. Urinary Catheter: Yes Assessment to: Continue Anaya insert reason: Obstruction/Retention Vascular Central Line Catheter: No A/P Diagnosis: (1) Fall ICD Codes: W19.XXXA - Unspecified fall, initial encounter Status: Acute (2) Facial laceration ICD Codes: S01.81XA - Laceration without foreign body of other part of head, initial encounter Status: Acute (3) Subdural hematoma, acute ICD Codes: I62.01 - Nontraumatic acute subdural hemorrhage Status: Acute (4) Fracture of orbital wall ICD Codes: S02.80XA - Fracture of other specified skull and facial bones, unspecified side, initial encounter for closed fracture Status: Acute (5) Tachycardia ICD Codes: R00.0 - Tachycardia, unspecified Status: Acute (6) Frequent falls ICD Codes: R29.6 - Recurrent falls Status: Chronic (7) Ataxia ICD Codes: R27.0 - Ataxia Status: Acute (8) NPH (normal pressure hydrocephalus) ICD Codes: G91.2 - Normal pressure hydrocephalus Status: Chronic (9) Diabetes ICD Codes: E11.9 - Diabetes mellitus Status: Chronic (10) BPH (benign prostatic hyperplasia) ICD Codes: N40.0 - Benign prostatic hyperplasia Status: Chronic (11) Peripheral neuropathy ICD Codes: G62.9 - Peripheral neuropathy Status: Chronic (12) Hyperlipidemia ICD Codes: E78.5 - Hyperlipidemia Status: Chronic (13) Hypertension ICD Codes: I10 - Hypertension Status: Chronic (14) S/P MANAGER PEDIATRIC shunt ICD Codes: Z98.2 - Status post ventriculoperitoneal shunt Status: Resolved (15) Chronic indwelling Anaya catheter ICD Codes: Z92.89 - Personal history of other medical treatment Status: Chronic (16) Urinary tract infection ICD Codes: N39.0 - Urinary tract infection, site not specified Status: Acute (17) Impaired cognition ICD Codes: R41.89 - Impaired cognition Status: Chronic Assessment and Plan 81-year-old elderly male with history of NPH has MANAGER PEDIATRIC shunt, recurrent falls, dementia, peripheral neuropathy, physical debility, recurrent UTIs and sepsis. Subdural hematoma, status post fall Left forehead laceration Left orbital floor fracture without entrapment per CT finding -Neurosurgery input appreciated, non surgical management recommended -Continue neuro checks -Fall precautions -Avoid any anticoagulation -repeat CT head today, stable Recurrent UTI, chronic indwelling catheter. Urine culture positive for Enterobacter cloacae, Klebsiella oxytoca ESBL positive. -Continue with ertapenem -ID input appreciated -Anaya catheter has been changed in the emergency room -cultures negative so far Tachycardia, patient on beta blockers -Continuous cardiac telemetry monitoring -continue BB, HR better Altered mental status, likely multifactorial, no evidence of stroke. NPH with MANAGER PEDIATRIC shunt Continue with neuro checks -neurosurgery following Type 2 diabetes Accu-Cheks before meals and at bedtime with insulin therapy Hypertension, stable -continue home medications Hyperlipidemia Continue with home medications SCDs for DVT prophylaxis, avoid anticoagulation PT eval and OOB with assistance Fall precautions Poss dc in 1-2 days with abx and when cleared by nsx D/W RN D/W pt, attempted D/W Dr. Barrera This patient was seen by myself and Dr. Barrera, this note is written on his behalf Problem Qualifiers (1) Fall: Qualified Codes: W19.XXXA - Unspecified fall, initial encounter (2) Facial laceration: Qualified Codes: S01.81XA - Laceration without foreign body of other part of head, initial encounter (3) Fracture of orbital wall: Qualified Codes: S02.80XA - Fracture of other specified skull and facial bones , unspecified side, initial encounter for closed fracture (4) Diabetes: Qualified Codes: E11.8 - Type 2 diabetes mellitus with unspecified complications (5) Peripheral neuropathy: Qualified Codes: G62.9 - Polyneuropathy, unspecified (6) Hyperlipidemia: Qualified Codes: E78.5 - Hyperlipidemia, unspecified (7) Hypertension: Qualified Codes: I10 - Essential (primary) hypertension (8) Urinary tract infection: Qualified Codes: T83.511D - Infection and inflammatory reaction due to indwelling urethral catheter, subsequent encounter; N39.0 - Urinary tract infection, site not specified Joan Martinez [employer] SAL[employer] REPRESENTATIVE Nov 19, 2016 11:57
--- NOTE | 2016-11-19 12:02 | HHI.NSPN ---
(Kelvin Gtz) History Chief Complaint: subdural hemorrhage. (Kelvin Gtz) Interval History An 81-year-old gentleman with a history of dementia and normal pressure hydrocephalus who currently resides in a [facility]. He apparently fell at the [facility] and struck the left side of his head with a forehead laceration and was brought to [facility] for further evaluation. CT scan of the head reveals small para-falcine occipital subdural hemorrhage without mass effect or midline shift. CT of the cerebral spine does not reveal any fractures. Maxillofacial CT scan revealed the possibility of a fracture involving the orbit floor without any entrapment. The patient is here with his and has been lethargic but does arouse and follow simple commands. She informs me that he has been actively followed by Dr. Shah and last saw him two weeks ago and is scheduled to get another followup MRI scan and visit subsequently. He has had a BRAKE SHOE REBUILDER shunt placement for normal pressure hydrocephalus in March 2014. The patient has a very dysarthric speech and cannot relate much of a history. 11/19/16: Pt awakens to voice although prefers eyes closed. Denies headache. Dementia makes obtaining more info difficult. (Kelvin Gtz) System Review Comments Unable to obtain given pts clinical condition. (Kelvin Gtz) Exam Results Vital Signs Date Time Temp Pulse Resp B/P (MAP) Pulse Ox O2 Delivery O2 Flow Rate FiO2 11/19/16 08:28 97.6 82 20 137/64 (88) 96 11/18/16 12:44 Room Air Intake and Output 11/19/16 11/19/16 11/20/16 08:00 16:00 00:00 Output Total 650 ml 200 ml Balance -650 ml -200 ml (Kelvin Gtz) Physical Examination Resp: CTA bilaterally Heart: NSR no murmurs Abd: Soft positive bs Skin: left periorbital ecchymosis and left frontal laceration with steri- strips in place clean and dry. Muscle: Moves all 4 extremities. Neuro: Pt awakens to voice but prefers eyes closed. Follows commands well. Not conversive, tries to answer some simple yes/no questions with dysarthric speech. (Kelvin Gtz) Lab, Micro, Other Results Last Impressions Head CT 11/19/16 0800 Signed Impressions: Service Date/Time: Saturday, November 19, 2016 09:19 - CONCLUSION: Small parafalcine subdural decreasing in size. Small bilateral hygromas slightly larger. Heraclio Marrufo MD FACR Chest X-Ray 11/18/16737 Signed Impressions: Service Date/Time: October 07:52 - CONCLUSION: No acute cardiac pulmonary disease. Karsten Bledsoe Jr., MD Maxillofacial CT 11/18/16736 Signed Impressions: Service Date/Time: , November 18, 2016 07:44 - CONCLUSION: 1. There is extraconal air within the left orbit with periorbital soft tissue swelling. I' m not clearly able to see a fracture on this study that is slightly limited by motion artifact but I suspect there is an orbital floor fracture without entrapment. Karsten Bledsoe Jr., MD Cervical Spine CT 11/18/16736 Signed Impressions: Service Date/Time: October 07:44 - CONCLUSION: 1. No fracture or dislocation. 2. Degenerative changes. 3. Calcified plaque involving the carotid arteries. Karsten Bledsoe Jr., MD Laboratory Tests Test 11/18/16 16:20 11/19/16 10:08 White Blood Count 14.7 TH/MM3 12.9 TH/MM3 Red Blood Count 4.73 MIL/MM3 4.53 MIL/MM3 Hemoglobin 13.0 GM/DL 12.6 GM/DL Hematocrit 39.9 % 38.7 % Mean Corpuscular Volume 84.2 FL 85.4 FL Mean Corpuscular Hemoglobin 27.4 PG 27.8 PG Mean Corpuscular Hemoglobin Concent 32.5 % 32.5 % Red Cell Distribution Width 14.9 % 15.3 % Platelet Count 231 TH/MM3 191 TH/MM3 Mean Platelet Volume 7.9 FL 7.6 FL Neutrophils (%) (Auto) 84.7 % Lymphocytes (%) (Auto) 7.6 % Monocytes (%) (Auto) 7.2 % Eosinophils (%) (Auto) 0.3 % Basophils (%) (Auto) 0.2 % Neutrophils # (Auto) 12.4 TH/MM3 Lymphocytes # (Auto) 1.1 TH/MM3 Monocytes # (Auto) 1.1 TH/MM3 Eosinophils # (Auto) 0.0 TH/MM3 Basophils # (Auto) 0.0 TH/MM3 CBC Comment DIFF FINAL Differential Comment Blood Urea Nitrogen 14 MG/DL 18 MG/DL Creatinine 1.12 MG/DL 1.03 MG/DL Random Glucose 153 MG/DL 133 MG/DL Total Protein 7.2 GM/DL Albumin 3.2 GM/DL Calcium Level 9.3 MG/DL 8.5 MG/DL Alkaline Phosphatase 99 U/L Aspartate Amino Transf (AST/SGOT) 18 U/L Alanine Aminotransferase (ALT/SGPT) 21 U/L Total Bilirubin 0.7 MG/DL Sodium Level 132 MEQ/L 135 MEQ/L Potassium Level 4.4 MEQ/L 4.0 MEQ/L Chloride Level 96 MEQ/L 99 MEQ/L Carbon Dioxide Level 25.9 MEQ/L 27.8 MEQ/L Anion Gap 10 MEQ/L 8 MEQ/L Estimat Glomerular Filtration Rate 63 ML/MIN 69 ML/MIN 11/19/16 11/19/16 11/20/16 15:00 23:00 07:00 Output Total 200 ml Balance -200 ml Output Urine Total 200 ml (Kelvin Gtz) Medical Decision Making Impression and Plan A: 1. 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 He has a right frontal ventriculoperitoneal shunt placement with the ventricular catheter in position and no hydrocephalus noted. 2. Multiple medical comorbidities including dementia and a usp resident. PLAN Neurosurgically stable to transfer to SNF when medically stable. Follow up with Dr. Shah as outpatient. Continue with rehab while in hospital. (Kelvin Gtz) Attending Statement The exam, history, and the medical decision-making described in the above note were completed with the assistance of the mid-level provider. I reviewed and agree with the findings presented. I attest that I had a [id number] encounter with the patient on the same day, and personally performed and documented my assessment and findings in the medical record. Stable neurologic exam and follow-up CT scan with the decreasing interhemispheric subdural hemorrhage. Cleared for discharge back to her [facility] from neurosurgery standpoint. Follow-up with Dr. Shah in his outpatient clinic. (Doyle Pate MD) Kelvin Gtz Nov 19, 2016 12:02 Doyle Pate MD Nov 19, 2016 12:28
[2016-11-19] MEDS: POLYETHYLENE GLYCOL 17 GM PKG PO SCH (21:00)
[2016-11-19] MEDS: ACETAMINOPHEN 325 MG TAB PO PRN (22:38)
[2016-11-20] VITALS (8 sets, daily range): BP systolic 88–172; BP diastolic 55–86; PULSE 88–113; RESP 16–20; TEMP 98.1–99.7; O2SAT 91–99
[2016-11-20] MEDS: MEROPENEM INJ 1,000 MG in SODIUM CHLORIDE 0.9% INJ 100 ML IV SCH ×2 (01:19→10:29)
[2016-11-20] MEDS: INSULIN ASPART SUPPLEMENTAL SCALE SQ SCH ×4 (07:00→21:00)
[2016-11-20] MEDS: SODIUM CHLOR 0.9% 1000 ML INJ 1,000 ML IV SCH ×2 (08:00→18:00)
[2016-11-20] MEDS: FAMOTIDINE 20 MG TAB PO SCH (09:00)
[2016-11-20] MEDS: VENLAFAXINE HCL XR 75 MG CAP PO SCH (10:31)
[2016-11-20] MEDS: PRAVASTATIN SOD 20 MG TAB PO SCH (10:31)
[2016-11-20] MEDS: MAGNESIUM OXIDE 400 MG TAB PO SCH (10:31)
[2016-11-20] MEDS: METOPROLOL TARTRATE 25 MG TAB PO SCH ×2 (10:31→20:55)
[2016-11-20] MEDS: LISINOPRIL 5 MG TAB PO SCH (10:31)
[2016-11-20] MEDS: METOCLOPRAMIDE HCL 10 MG TAB PO SCH ×3 (10:32→18:24)
[2016-11-20] MEDS: DOCUSATE SODIUM 100 MG CAP PO SCH ×2 (10:32→20:55)
--- NOTE | 2016-11-20 10:49 | HHI.PR ---
Subjective Remarks more awake, oriented x 2 occ. agitated no cp no sob axillary fever 100 max Objective Objective Results - Vital Signs Date Time Temp Pulse Resp B/P (MAP) Pulse Ox O2 Delivery O2 Flow Rate FiO2 11/20/16 08:00 98.7 113 18 152/86 (108) 91 11/20/16 06:04 98.3 92 20 119/56 (77) 92 11/20/16 00:00 98.1 88 20 88/62 (71) 95 11/19/16 21:12 100.0 100 18 121/57 (78) 93 11/19/16 16:08 97.4 80 18 116/59 (78) 96 11/19/16 12:18 97.1 79 20 157/74 (101) 95 I/O 11/19/16 11/19/16 11/19/16 11/20/16 11/20/16 11/20/16 07:00 15:00 23:00 07:00 15:00 23:00 Intake Total 240 ml 0 ml Output Total 650 ml 600 ml 375 ml Balance -650 ml -360 ml -375 ml Intake Oral 240 ml 0 ml Output Urine Total 650 ml 600 ml 375 ml # Bowel Movements 2 Result Diagram: 11/19/16 1008 11/19/16 1008 Imaging Last Impressions Chest X-Ray 11/18/16737 Signed Impressions: Service Date/Time: October 07:52 - CONCLUSION: No acute cardiac pulmonary disease. Karsten Bledsoe Jr., MD Maxillofacial CT 11/18/16736 Signed Impressions: Service Date/Time: October 07:44 - CONCLUSION: 1. There is extraconal air within the left orbit with periorbital soft tissue swelling. I' m not clearly able to see a fracture on this study that is slightly limited by motion artifact but I suspect there is an orbital floor fracture without entrapment. Karsten Bledsoe Jr., MD Head CT 11/18/16736 Signed Impressions: Service Date/Time: October 07:44 - CONCLUSION: Thin parafalcine subdural hematoma Rick Ellington MD Cervical Spine CT 11/18/16736 Signed Impressions: Service Date/Time: October 07:44 - CONCLUSION: 1. No fracture or dislocation. 2. Degenerative changes. 3. Calcified plaque involving the carotid arteries. Karsten Bledsoe Jr., MD Other Results Date/Time Source Procedure Growth Status 11/18/16 16:26 Blood Other Aerobic Blood Culture - Preliminary NO GROWTH IN 1 DAY Resulted 11/18/16 16:26 Blood Other Anaerobic Blood Culture - Preliminary NO GROWTH IN 1 DAY Resulted 11/18/16 09:27 Urine Catheterized Urine Urine Culture - Final Klebsiella Oxytoca Esbl Pos Complete ROS General: Other (12 point ros unable to obtain ) Physical Exam Physical Exam GENERAL: This is a frail, thin built elderly male. SKIN: No rashes, ecchymoses or lesions. Cool and dry. HEAD: Left forehead with laceration, Steri-Strips in place. Left periorbital bruising. EYES: Pupils equal round and reactive. Extraocular motions intact. No scleral icterus. No injection or drainage. ENT: Nose without bleeding, purulent drainage or septal hematoma. Throat without erythema, tonsillar hypertrophy or exudate. Uvula midline. Airway patent. NECK: Trachea midline. No JVD or lymphadenopathy. Supple, nontender, no meningeal signs. CARDIOVASCULAR: S1 and S2, sinus tachycardia. No rubs, no gallops, no murmurs. RESPIRATORY: Poor inspiratory effort. Essentially clear breath sounds. GASTROINTESTINAL: Abdomen soft, non-tender, nondistended. No hepato-splenomegaly , or palpable masses. No guarding. MUSCULOSKELETAL: Extremities without clubbing, cyanosis, or edema. No joint tenderness, effusion, or edema noted. No calf tenderness. Negative Homans sign bilaterally. NEUROLOGICAL: attempts to open eyes, oriented to self and place, follows simple one step commands, no focal deficits. Urinary Catheter: Yes Assessment to: Continue Anaya insert reason: Obstruction/Retention Vascular Central Line Catheter: No A/P Diagnosis: (1) Fall ICD Codes: W19.XXXA - Unspecified fall, initial encounter Status: Acute (2) Facial laceration ICD Codes: S01.81XA - Laceration without foreign body of other part of head, initial encounter Status: Acute (3) Subdural hematoma, acute ICD Codes: I62.01 - Nontraumatic acute subdural hemorrhage Status: Acute (4) Fracture of orbital wall ICD Codes: S02.80XA - Fracture of other specified skull and facial bones, unspecified side, initial encounter for closed fracture Status: Acute (5) Tachycardia ICD Codes: R00.0 - Tachycardia, unspecified Status: Acute (6) Frequent falls ICD Codes: R29.6 - Recurrent falls Status: Chronic (7) Ataxia ICD Codes: R27.0 - Ataxia Status: Acute (8) NPH (normal pressure hydrocephalus) ICD Codes: G91.2 - Normal pressure hydrocephalus Status: Chronic (9) Diabetes ICD Codes: E11.9 - Diabetes mellitus Status: Chronic (10) BPH (benign prostatic hyperplasia) ICD Codes: N40.0 - Benign prostatic hyperplasia Status: Chronic (11) Peripheral neuropathy ICD Codes: G62.9 - Peripheral neuropathy Status: Chronic (12) Hyperlipidemia ICD Codes: E78.5 - Hyperlipidemia Status: Chronic (13) Hypertension ICD Codes: I10 - Hypertension Status: Chronic (14) S/P STORE STOCK HELP shunt ICD Codes: Z98.2 - Status post ventriculoperitoneal shunt Status: Resolved (15) Chronic indwelling Anaya catheter ICD Codes: Z92.89 - Personal history of other medical treatment Status: Chronic (16) Urinary tract infection ICD Codes: N39.0 - Urinary tract infection, site not specified Status: Acute (17) Impaired cognition ICD Codes: R41.89 - Impaired cognition Status: Chronic Assessment and Plan 81-year-old elderly male with history of NPH has STORE STOCK HELP shunt, recurrent falls, dementia, peripheral neuropathy, physical debility, recurrent UTIs and sepsis. Subdural hematoma, status post fall Left forehead laceration Left orbital floor fracture without entrapment per CT finding -Neurosurgery input appreciated, non surgical management recommended -Continue neuro checks -Fall precautions -Avoid any anticoagulation -repeat CT head today, stable -clear for dc by neurosurgery. Recurrent UTI, chronic indwelling catheter. Urine culture positive for Enterobacter cloacae, Klebsiella oxytoca ESBL positive. -Continue with ertapenem -ID input appreciated -Anaya catheter has been changed in the emergency room -UC positive for Klebsiella oxytoca ESBL positive. -Blood cultures negative so far Tachycardia, patient on beta blockers -Continuous cardiac telemetry monitoring -continue BB, HR better Altered mental status, likely multifactorial, no evidence of stroke. NPH with STORE STOCK HELP shunt Continue with neuro checks -neurosurgery following Type 2 diabetes Accu-Cheks before meals and at bedtime with insulin therapy Hypertension, stable -continue home medications Hyperlipidemia Continue with home medications SCDs for DVT prophylaxis, avoid anticoagulation PT eval and OOB with assistance Fall precautions Discharge planning soon, will need ID recommendations for antibiotics. D/W RN D/W Dr. Barrera This patient was seen by myself and Dr. Barrera, this note is written on his behalf Problem Qualifiers (1) Fall: Qualified Codes: W19.XXXA - Unspecified fall, initial encounter (2) Facial laceration: Qualified Codes: S01.81XA - Laceration without foreign body of other part of head, initial encounter (3) Fracture of orbital wall: Qualified Codes: S02.80XA - Fracture of other specified skull and facial bones , unspecified side, initial encounter for closed fracture (4) Diabetes: Qualified Codes: E11.8 - Type 2 diabetes mellitus with unspecified complications (5) Peripheral neuropathy: Qualified Codes: G62.9 - Polyneuropathy, unspecified (6) Hyperlipidemia: Qualified Codes: E78.5 - Hyperlipidemia, unspecified (7) Hypertension: Qualified Codes: I10 - Essential (primary) hypertension (8) Urinary tract infection: Qualified Codes: T83.511D - Infection and inflammatory reaction due to indwelling urethral catheter, subsequent encounter; N39.0 - Urinary tract infection, site not specified Joan Martinez [facility] Nov 20, 2016 10:48
[2016-11-20] MEDS ORDERED: MISCELLANEOUS PHARMACY INFORMATION XX PRN (14:45)
[2016-11-20] MEDS ORDERED: ASP: Documented ESBL, MDR A baumannii or P. aeruginosa PRN (14:45)
[2016-11-20] MEDS ORDERED: ERTAPENEM INJ 1,000 MG in SODIUM CHLORIDE 0.9% INJ 100 ML IV SCH (15:00)
[2016-11-20] MEDS: ERTAPENEM INJ 1,000 MG in SODIUM CHLORIDE 0.9% INJ 100 ML IV SCH (17:00)
--- NOTE | 2016-11-20 17:53 | HHI.IDPN ---
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 Vital Signs Date Time Temp Pulse Resp B/P (MAP) Pulse Ox O2 Delivery O2 Flow Rate FiO2 11/20/16 16:00 98.3 97 16 114/65 (81) 97 11/20/16 12:30 96 11/20/16 12:00 99.7 109 16 141/73 (95) 96 11/20/16 08:00 98.7 113 18 152/86 (108) 91 11/20/16 06:04 98.3 92 20 119/56 (77) 92 11/20/16 00:00 98.1 88 20 88/62 (71) 95 11/19/16 21:12 100.0 100 18 121/57 (78) 93 11/20/16 11/20/16 11/21/16 15:00 23:00 07:00 Output Total 450 ml Balance -450 ml Output Urine Total 450 ml # Bowel Movements 0 . Laboratory Tests Test 11/19/16 10:08 White Blood Count 12.9 TH/MM3 Red Blood Count 4.53 MIL/MM3 Hemoglobin 12.6 GM/DL Hematocrit 38.7 % Mean Corpuscular Volume 85.4 FL Mean Corpuscular Hemoglobin 27.8 PG Mean Corpuscular Hemoglobin Concent 32.5 % Red Cell Distribution Width 15.3 % Platelet Count 191 TH/MM3 Mean Platelet Volume 7.6 FL Laboratory Tests Test 11/19/16 10:08 Blood Urea Nitrogen 18 MG/DL Creatinine 1.03 MG/DL Random Glucose 133 MG/DL Calcium Level 8.5 MG/DL Sodium Level 135 MEQ/L Potassium Level 4.0 MEQ/L Chloride Level 99 MEQ/L Carbon Dioxide Level 27.8 MEQ/L Anion Gap 8 MEQ/L Estimat Glomerular Filtration Rate 69 ML/MIN Microbiology Date/Time Source Procedure Growth Status 11/18/16 16:26 Blood Other Aerobic Blood Culture - Preliminary NO GROWTH IN 2 DAYS Resulted 11/18/16 16:26 Blood Other Anaerobic Blood Culture - Preliminary NO GROWTH IN 2 DAYS Resulted 11/18/16 16:20 Blood Other Aerobic Blood Culture - Preliminary NO GROWTH IN 2 DAYS Resulted 11/18/16 16:20 Blood Other Anaerobic Blood Culture - Preliminary NO GROWTH IN 2 DAYS Resulted 11/18/16 09:27 Urine Catheterized Urine Urine Culture - Final Klebsiella Oxytoca Esbl Pos Complete Imaging Last Impressions Head CT 11/19/16 0800 Signed Impressions: Service Date/Time: Saturday, November 19, 2016 09:19 - CONCLUSION: Small parafalcine subdural decreasing in size. Small bilateral hygromas slightly larger. Heraclio Marrufo MD FACR Chest X-Ray 11/18/16737 Signed Impressions: Service Date/Time: , November 18, 2016 07:52 - CONCLUSION: No acute cardiac pulmonary disease. Karsten Bledsoe Jr., MD Maxillofacial CT 11/18/16736 Signed Impressions: Service Date/Time: , November 18, 2016 07:44 - CONCLUSION: 1. There is extraconal air within the left orbit with periorbital soft tissue swelling. I' m not clearly able to see a fracture on this study that is slightly limited by motion artifact but I suspect there is an orbital floor fracture without entrapment. Karsten Bledsoe Jr., MD Cervical Spine CT 11/18/16736 Signed Impressions: Service Date/Time: October 07:44 - CONCLUSION: 1. No fracture or dislocation. 2. Degenerative changes. 3. Calcified plaque involving the carotid arteries. Karsten Bledsoe Jr., MD Physical Exam CONSTITUTIONAL/GENERAL: This is an adequately nourished patient, in no apparent distress. SKIN: No jaundice, rashes, or lesions. Facial ecchymoses . HEAD: facial echymposis, stitche si n place over L roman catholic laceration. Normocephalic. EYES: Pupils equal and round and reactive. Extraocular motions intact. No scleral icterus. No injection or drainage. Fundi not examined. ENT: Hearing not tested CARDIOVASCULAR: Regular rate and rhythm without murmurs, gallops, or rubs. No JVD. Peripheral pulses symmetric. RESPIRATORY/CHEST: Symmetric, unlabored respirations. Clear to auscultation. Breath sounds equal bilaterally. No wheezes, rales, or rhonchi. GASTROINTESTINAL: Abdomen soft, non-tender, nondistended. No hepato-splenomegaly , or palpable masses. No guarding. Bowel sounds present. GENITOURINARY: Without palpable bladder distension. Anaya catheter in place with clear yellow urine MUSCULOSKELETAL: Extremities without clubbing, cyanosis, or edema. No joint tenderness or effusion noted. No calf tenderness. No mottling or clubbing. LYMPHATICS: No palpable cervical or supraclavicular adenopathy. NEUROLOGICAL: Lethargic, definetely more alert + unintelligible speech, not follwing commands PSYCHIATRIC: unable to assess Assessment & Plan Remarks Traumatic brain injury sp fall UTI, recurretn ESBL+ Kleb oxytoca fever, leukocuytosis - improving - blood cl x remian negative @ 2 days Recently diagnosed ESBL+ Kleb pneumo/Enterobacter UTI, R to bacrrim Severely encephalopathic - likley 2/2 TBI -chnage meropenme to Ertapenem fu blood untill final - anticipate 2 weeks of Ertapenem - no oral tx options OK for PICC if remains afebrile and blood clx are negative @ alt least 72 hrs dw @ Amanda Maciel MD Nov 20, 2016 17:53
[2016-11-20] MEDS: ACETAMINOPHEN 325 MG TAB PO PRN (20:55)
[2016-11-20] MEDS: POLYETHYLENE GLYCOL 17 GM PKG PO SCH (20:59)
--- NOTE | 2016-11-20 21:00 | HHI.NSPN ---
History Chief Complaint: subdural hemorrhage. Interval History Persistent decreased mental status for the past few days. Exam Results Vital Signs Date Time Temp Pulse Resp B/P (MAP) Pulse Ox O2 Delivery O2 Flow Rate FiO2 11/20/16 16:00 98.3 97 16 114/65 (81) 97 11/18/16 12:44 Room Air Intake and Output 11/20/16 11/20/16 11/21/16 08:00 16:00 00:00 Intake Total 0 ml Output Total 125 ml 450 ml Balance -125 ml -450 ml Physical Examination Resp: CTA bilaterally Heart: NSR no murmurs Abd: Soft positive bs Skin: left periorbital ecchymosis and left frontal laceration with steri- strips in place clean and dry. Neurologic: Moderate lethargy. Opens eyes [id number] intermittent with encouragement from his family. Focuses and follows briefly when aroused by his family. Pupils 2 mm nonreactive Moves all extremities spontaneous with moderate strength with occasional bilateral grasp to command. Medical Decision Making Impression and Plan Impression: 1. 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 2. Persistent altered bowel status. The patient's states that he was awake and alert, ambulating independently with a walker prior to his fall. Plan: I had a long discussion with the patient's family and today. It appears that his mental status changes occurred acutely after his last fall. He did have several falls prior to that. They indicate that he has had several visits to his primary care physician in the emergency room over the past few weeks with significant hypotension noted at various visits, including with his neurologist. They indicate that his systolic blood pressure has been as low as see 40-70 range systolic. It is possible that he has sustained a recent syncopal episode with secondary ischemic or hypoxic encephalopathy, possibly with further contribution of urosepsis/hypertension. He does have mild primarily frontoparietal subdural effusions noted on his most recent CT scan. A prior study will be located for comparison, but this is unlikely a cause of his present mental status changes. Darrel Shah MD Nov 20, 2016 21:00
[2016-11-21] VITALS (7 sets, daily range): BP systolic 110–140; BP diastolic 56–86; PULSE 74–98; RESP 17–18; TEMP 97.6–98.8; O2SAT 94–99
[2016-11-21] MEDS: SODIUM CHLOR 0.9% 1000 ML INJ 1,000 ML IV SCH ×2 (04:36→17:46)
[2016-11-21] MEDS: INSULIN ASPART SUPPLEMENTAL SCALE SQ SCH ×4 (06:38→20:45)
[2016-11-21] MEDS: VENLAFAXINE HCL XR 75 MG CAP PO SCH (09:52)
[2016-11-21] MEDS: PRAVASTATIN SOD 20 MG TAB PO SCH (09:52)
[2016-11-21] MEDS: DOCUSATE SODIUM 100 MG CAP PO SCH ×2 (09:52→20:45)
[2016-11-21] MEDS: LISINOPRIL 5 MG TAB PO SCH (09:52)
[2016-11-21] MEDS: FAMOTIDINE 20 MG TAB PO SCH (09:53)
[2016-11-21] MEDS: METOPROLOL TARTRATE 25 MG TAB PO SCH ×2 (09:53→20:45)
[2016-11-21] MEDS: MAGNESIUM OXIDE 400 MG TAB PO SCH (09:53)
[2016-11-21] MEDS: METOCLOPRAMIDE HCL 10 MG TAB PO SCH ×3 (09:53→17:46)
--- NOTE | 2016-11-21 11:23 | HHI.PR ---
Subjective Remarks awakes to voice, oriented x 2 coughing with food, pills are being crushed not eating much unable to obtain ROS Objective Objective Results - Vital Signs Date Time Temp Pulse Resp B/P (MAP) Pulse Ox O2 Delivery O2 Flow Rate FiO2 11/21/16 04:49 98.3 91 18 122/78 (93) 99 11/21/16 00:42 98.1 74 17 110/56 (74) 99 11/20/16 21:01 98.8 99 17 106/55 (72) 99 11/20/16 20:58 98.8 99 17 106/55 (72) 99 11/20/16 16:00 98.3 97 16 114/65 (81) 97 11/20/16 12:30 96 11/20/16 12:00 99.7 109 16 141/73 (95) 96 I/O 11/20/16 11/20/16 11/20/16 11/21/16 11/21/16 11/21/16 06:59 14:59 22:59 06:59 14:59 22:59 Intake Total 0 ml Output Total 375 ml 450 ml 525 ml Balance -375 ml -450 ml -525 ml Intake Oral 0 ml Output Urine Total 375 ml 450 ml 525 ml # Bowel Movements 0 Result Diagram: 11/19/16 1008 11/19/16 1008 Imaging Last Impressions Chest X-Ray 11/18/16737 Signed Impressions: Service Date/Time: October 07:52 - CONCLUSION: No acute cardiac pulmonary disease. Karsten Bledsoe Jr., MD Maxillofacial CT 11/18/16736 Signed Impressions: Service Date/Time: October 07:44 - CONCLUSION: 1. There is extraconal air within the left orbit with periorbital soft tissue swelling. I' m not clearly able to see a fracture on this study that is slightly limited by motion artifact but I suspect there is an orbital floor fracture without entrapment. Karsten Bledsoe Jr., MD Head CT 11/18/16736 Signed Impressions: Service Date/Time: October 07:44 - CONCLUSION: Thin parafalcine subdural hematoma Rick Ellington MD Cervical Spine CT 11/18/16736 Signed Impressions: Service Date/Time: October 07:44 - CONCLUSION: 1. No fracture or dislocation. 2. Degenerative changes. 3. Calcified plaque involving the carotid arteries. Karsten Bledsoe Jr., MD Other Results Date/Time Source Procedure Growth Status 11/18/16 16:26 Blood Other Aerobic Blood Culture - Preliminary NO GROWTH IN 3 DAYS Resulted 11/18/16 16:26 Blood Other Anaerobic Blood Culture - Preliminary NO GROWTH IN 3 DAYS Resulted 11/18/16 09:27 Urine Catheterized Urine Urine Culture - Final Klebsiella Oxytoca Esbl Pos Complete ROS General: Other (unable to obtain ROS ) Physical Exam Physical Exam GENERAL: This is a frail, thin built elderly male. SKIN: No rashes, ecchymoses or lesions. Cool and dry. HEAD: Left forehead with laceration, Steri-Strips in place. Left periorbital bruising. EYES: Pupils equal round and reactive. Extraocular motions intact. No scleral icterus. No injection or drainage. ENT: Nose without bleeding, purulent drainage or septal hematoma. Throat without erythema, tonsillar hypertrophy or exudate. Uvula midline. Airway patent. NECK: Trachea midline. No JVD or lymphadenopathy. Supple, nontender, no meningeal signs. CARDIOVASCULAR: S1 and S2, sinus tachycardia. No rubs, no gallops, no murmurs. RESPIRATORY: Poor inspiratory effort. Essentially clear breath sounds. GASTROINTESTINAL: Abdomen soft, non-tender, nondistended. No hepato-splenomegaly , or palpable masses. No guarding. : large inguinal hernia MUSCULOSKELETAL: Extremities without clubbing, cyanosis, or edema. No joint tenderness, effusion, or edema noted. No calf tenderness. Negative Homans sign bilaterally. NEUROLOGICAL: attempts to open eyes, oriented to self and place, follows simple one step commands, no focal deficits. Urinary Catheter: Yes Assessment to: Continue A/P Diagnosis: (1) Fall ICD Codes: W19.XXXA - Unspecified fall, initial encounter Status: Acute (2) Facial laceration ICD Codes: S01.81XA - Laceration without foreign body of other part of head, initial encounter Status: Acute (3) Subdural hematoma, acute ICD Codes: I62.01 - Nontraumatic acute subdural hemorrhage Status: Acute (4) Fracture of orbital wall ICD Codes: S02.80XA - Fracture of other specified skull and facial bones, unspecified side, initial encounter for closed fracture Status: Acute (5) Tachycardia ICD Codes: R00.0 - Tachycardia, unspecified Status: Acute (6) Frequent falls ICD Codes: R29.6 - Recurrent falls Status: Chronic (7) Ataxia ICD Codes: R27.0 - Ataxia Status: Acute (8) NPH (normal pressure hydrocephalus) ICD Codes: G91.2 - Normal pressure hydrocephalus Status: Chronic (9) Diabetes ICD Codes: E11.9 - Diabetes mellitus Status: Chronic (10) BPH (benign prostatic hyperplasia) ICD Codes: N40.0 - Benign prostatic hyperplasia Status: Chronic (11) Peripheral neuropathy ICD Codes: G62.9 - Peripheral neuropathy Status: Chronic (12) Hyperlipidemia ICD Codes: E78.5 - Hyperlipidemia Status: Chronic (13) Hypertension ICD Codes: I10 - Hypertension Status: Chronic (14) S/P ADMISSION DISCHARGE RN shunt ICD Codes: Z98.2 - Status post ventriculoperitoneal shunt Status: Resolved (15) Chronic indwelling Anaya catheter ICD Codes: Z92.89 - Personal history of other medical treatment Status: Chronic (16) Urinary tract infection ICD Codes: N39.0 - Urinary tract infection, site not specified Status: Acute (17) Impaired cognition ICD Codes: R41.89 - Impaired cognition Status: Chronic Assessment and Plan 81-year-old elderly male with history of NPH has ADMISSION DISCHARGE RN shunt, recurrent falls, dementia, peripheral neuropathy, physical debility, recurrent UTIs and sepsis. Subdural hematoma, status post fall Left forehead laceration Left orbital floor fracture without entrapment per CT finding -Neurosurgery input appreciated, non surgical management recommended -Continue neuro checks -Fall precautions -Avoid any anticoagulation -repeat CT head, stable -clear for dc by neurosurgery. Recurrent UTI, chronic indwelling catheter. Urine culture positive for Enterobacter cloacae, Klebsiella oxytoca ESBL positive. -Continue with ertapenem -ID input appreciated -Anaya catheter has been changed in the emergency room -UC positive for Klebsiella oxytoca ESBL positive. -Blood cultures negative so far -ID recommends 2 weeks of Ertapenem/OK for PICC if remains afebrile and blood clx are negative @ alt least 72 hrs -will order PICC tomorrow - Tachycardia, patient on beta blockers -Continuous cardiac telemetry monitoring -continue BB, HR better Altered mental status, likely multifactorial, no evidence of stroke. NPH with ADMISSION DISCHARGE RN shunt Continue with neuro checks -neurosurgery following Type 2 diabetes Accu-Cheks before meals and at bedtime with insulin therapy Hypertension, stable -continue home medications Hyperlipidemia Continue with home medications SCDs for DVT prophylaxis, avoid anticoagulation PT eval and OOB with assistance Fall precautions Not eating much, concern for aspiration Speech and swallow eval consult palliative care services, pt. declining, multiple falls, admissions for sepsis and recurrent UTI. D/W RN D/W Dr. Barrera This patient was seen by myself and Dr. Barrera, this note is written on his behalf Problem Qualifiers (1) Fall: Qualified Codes: W19.XXXA - Unspecified fall, initial encounter (2) Facial laceration: Qualified Codes: S01.81XA - Laceration without foreign body of other part of head, initial encounter (3) Fracture of orbital wall: Qualified Codes: S02.80XA - Fracture of other specified skull and facial bones , unspecified side, initial encounter for closed fracture (4) Diabetes: Qualified Codes: E11.8 - Type 2 diabetes mellitus with unspecified complications (5) Peripheral neuropathy: Qualified Codes: G62.9 - Polyneuropathy, unspecified (6) Hyperlipidemia: Qualified Codes: E78.5 - Hyperlipidemia, unspecified (7) Hypertension: Qualified Codes: I10 - Essential (primary) hypertension (8) Urinary tract infection: Qualified Codes: T83.511D - Infection and inflammatory reaction due to indwelling urethral catheter, subsequent encounter; N39.0 - Urinary tract infection, site not specified Joan Martinez Nov 21, 2016 11:23
--- NOTE | 2016-11-21 14:53 | HHI.NSPN ---
History Chief Complaint: subdural hemorrhage. Interval History Persistent decreased mental status for the past few days following a recent fall. Exam Results Vital Signs Date Time Temp Pulse Resp B/P (MAP) Pulse Ox O2 Delivery O2 Flow Rate FiO2 11/21/16 12:00 98.1 98 18 140/86 (104) 96 11/18/16 12:44 Room Air Intake and Output 11/21/16 11/21/16 11/22/16 08:00 16:00 00:00 Output Total 525 ml Balance -525 ml Physical Examination Resp: CTA bilaterally Heart: NSR no murmurs Abd: Soft positive bs Skin: left periorbital ecchymosis and left frontal laceration with steri- strips in place clean and dry. Neurologic: Moderate lethargy. Opens eyes [id number] to voice Focuses and follows briefly when aroused by his family. Pupils 2 mm nonreactive Has good bilateral grasp to command. Moves left greater than right lower extremity moderate to command Medical Decision Making Impression and Plan Impression: 1. 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 2. Persistent altered bowel status. The patient's states that he was awake and alert, ambulating independently with a walker prior to his fall. 3. Positive mild to moderate bilateral diffuse subdural effusion-hygroma. Plan: I had a long discussion with the patient's family and today. It appears that his mental status changes occurred acutely after his last fall. He did have several falls prior to that. They indicate that he has had several visits to his primary care physician in the emergency room over the past few weeks with significant hypotension noted at various visits, including with his neurologist. They indicate that his systolic blood pressure has been as low as see 40-70 range systolic. It is possible that he has sustained a recent syncopal episode with secondary ischemic or hypoxic encephalopathy, possibly with further contribution of urosepsis/hypertension. He does have mild primarily frontoparietal subdural effusions noted on his most recent CT scan. Prior imaging studies from March and July 2016 have been reviewed. It was no significant subdural effusion on those studies. The subdural effusion/hygroma may be posttraumatic, but also may be secondary to or exacerbated by the ventriculoperitoneal shunt. Option of increasing shunt pressures been discussed with the family. They do wish to proceed with this change. The last shunt adjustment was in late 2015 to a pressure 110. The shunt will be increased to a pressure of 200 mm water temporarily with follow-up CT scan to assess the subdural effusion. Darrel Shah MD Nov 21, 2016 14:53
[2016-11-21] MEDS: ERTAPENEM INJ 1,000 MG in SODIUM CHLORIDE 0.9% INJ 100 ML IV SCH (17:46)
[2016-11-21] MEDS: POLYETHYLENE GLYCOL 17 GM PKG PO SCH (20:45)
[2016-11-22] VITALS (7 sets, daily range): BP systolic 122–153; BP diastolic 55–74; PULSE 72–95; RESP 16–19; TEMP 97.4–99.1; O2SAT 90–100
[2016-11-22] MEDS: INSULIN ASPART SUPPLEMENTAL SCALE SQ SCH ×4 (07:00→21:41)
[2016-11-22] MEDS: LISINOPRIL 5 MG TAB PO SCH (08:40)
[2016-11-22] MEDS: METOPROLOL TARTRATE 25 MG TAB PO SCH ×2 (08:40→20:36)
[2016-11-22] MEDS: FAMOTIDINE 20 MG TAB PO SCH (08:40)
[2016-11-22] MEDS: VENLAFAXINE HCL XR 75 MG CAP PO SCH (08:40)
[2016-11-22] MEDS: MAGNESIUM OXIDE 400 MG TAB PO SCH (08:40)
[2016-11-22] MEDS: DOCUSATE SODIUM 100 MG CAP PO SCH ×2 (08:41→20:36)
[2016-11-22] MEDS: PRAVASTATIN SOD 20 MG TAB PO SCH (08:41)
[2016-11-22] MEDS: METOCLOPRAMIDE HCL 10 MG TAB PO SCH ×3 (08:41→16:33)
[2016-11-22] MEDS: SODIUM CHLOR 0.9% 1000 ML INJ 1,000 ML IV SCH ×3 (09:02→21:40)
--- NOTE | 2016-11-22 09:49 | HHI.PR ---
Subjective Remarks Appears more lethargic today, attempts to open eyes to voice Not eating no fever overnight Unable to assess ROS Objective Objective Results - Vital Signs Date Time Temp Pulse Resp B/P (MAP) Pulse Ox O2 Delivery O2 Flow Rate FiO2 11/22/16 08:00 97.4 89 18 130/74 (92) 90 11/22/16 01:07 99.1 87 19 122/55 (77) 93 11/21/16 21:00 88 11/21/16 20:30 97.6 93 18 124/61 (82) 94 11/21/16 16:00 98.0 89 18 123/57 (79) 95 11/21/16 12:00 98.1 98 18 140/86 (104) 96 I/O 11/21/16 11/21/16 11/21/16 11/22/16 11/22/16 11/22/16 07:00 15:00 23:00 07:00 15:00 23:00 Intake Total 1158 ml Output Total 525 ml 475 ml Balance -525 ml -475 ml 1158 ml Intake Oral 150 ml IV Total 1008 ml Output Urine Total 525 ml 475 ml Result Diagram: 11/19/16 1008 11/19/16 1008 Imaging Last Impressions Chest X-Ray 11/18/16737 Signed Impressions: Service Date/Time: October 07:52 - CONCLUSION: No acute cardiac pulmonary disease. Karsten Bledsoe Jr., MD Maxillofacial CT 11/18/16736 Signed Impressions: Service Date/Time: October 07:44 - CONCLUSION: 1. There is extraconal air within the left orbit with periorbital soft tissue swelling. I' m not clearly able to see a fracture on this study that is slightly limited by motion artifact but I suspect there is an orbital floor fracture without entrapment. Karsten Bledsoe Jr., MD Head CT 11/18/16736 Signed Impressions: Service Date/Time: October 07:44 - CONCLUSION: Thin parafalcine subdural hematoma Rick Ellington MD Cervical Spine CT 11/18/16736 Signed Impressions: Service Date/Time: October 07:44 - CONCLUSION: 1. No fracture or dislocation. 2. Degenerative changes. 3. Calcified plaque involving the carotid arteries. Karsten Bledsoe Jr., MD Other Results Date/Time Source Procedure Growth Status 11/18/16 16:26 Blood Other Aerobic Blood Culture - Preliminary NO GROWTH IN 3 DAYS Resulted 11/18/16 16:26 Blood Other Anaerobic Blood Culture - Preliminary NO GROWTH IN 3 DAYS Resulted 11/18/16 09:27 Urine Catheterized Urine Urine Culture - Final Klebsiella Oxytoca Esbl Pos Complete ROS General: Other (unable to obtain ROS) Physical Exam Physical Exam GENERAL: This is a frail, thin built elderly male. SKIN: No rashes, ecchymoses or lesions. Cool and dry. HEAD: Left forehead with laceration, Steri-Strips in place. Left periorbital bruising. EYES: Pupils equal round and reactive. Extraocular motions intact. No scleral icterus. No injection or drainage. ENT: Nose without bleeding, purulent drainage or septal hematoma. Throat without erythema, tonsillar hypertrophy or exudate. Uvula midline. Airway patent. NECK: Trachea midline. No JVD or lymphadenopathy. Supple, nontender, no meningeal signs. CARDIOVASCULAR: S1 and S2, sinus tachycardia. No rubs, no gallops, no murmurs. RESPIRATORY: Poor inspiratory effort. Essentially clear breath sounds. GASTROINTESTINAL: Abdomen soft, non-tender, nondistended. No hepato-splenomegaly , or palpable masses. No guarding. : large inguinal hernia MUSCULOSKELETAL: Extremities without clubbing, cyanosis, or edema. No joint tenderness, effusion, or edema noted. No calf tenderness. Negative Homans sign bilaterally. NEUROLOGICAL: attempts to open eyes, more lethargic. Urinary Catheter: Yes Assessment to: Continue Anaya insert reason: Obstruction/Retention Vascular Central Line Catheter: No A/P Diagnosis: (1) Fall ICD Codes: W19.XXXA - Unspecified fall, initial encounter Status: Acute (2) Facial laceration ICD Codes: S01.81XA - Laceration without foreign body of other part of head, initial encounter Status: Acute (3) Subdural hematoma, acute ICD Codes: I62.01 - Nontraumatic acute subdural hemorrhage Status: Acute (4) Fracture of orbital wall ICD Codes: S02.80XA - Fracture of other specified skull and facial bones, unspecified side, initial encounter for closed fracture Status: Acute (5) Tachycardia ICD Codes: R00.0 - Tachycardia, unspecified Status: Acute (6) Frequent falls ICD Codes: R29.6 - Recurrent falls Status: Chronic (7) Ataxia ICD Codes: R27.0 - Ataxia Status: Acute (8) NPH (normal pressure hydrocephalus) ICD Codes: G91.2 - Normal pressure hydrocephalus Status: Chronic (9) Diabetes ICD Codes: E11.9 - Diabetes mellitus Status: Chronic (10) BPH (benign prostatic hyperplasia) ICD Codes: N40.0 - Benign prostatic hyperplasia Status: Chronic (11) Peripheral neuropathy ICD Codes: G62.9 - Peripheral neuropathy Status: Chronic (12) Hyperlipidemia ICD Codes: E78.5 - Hyperlipidemia Status: Chronic (13) Hypertension ICD Codes: I10 - Hypertension Status: Chronic (14) S/P [employer] shunt ICD Codes: Z98.2 - Status post ventriculoperitoneal shunt Status: Resolved (15) Chronic indwelling Anaya catheter ICD Codes: Z92.89 - Personal history of other medical treatment Status: Chronic (16) Urinary tract infection ICD Codes: N39.0 - Urinary tract infection, site not specified Status: Acute (17) Impaired cognition ICD Codes: R41.89 - Impaired cognition Status: Chronic Assessment and Plan 81-year-old elderly male with history of NPH has [employer] shunt, recurrent falls, dementia, peripheral neuropathy, physical debility, recurrent UTIs and sepsis. Subdural hematoma, status post fall Left forehead laceration Left orbital floor fracture without entrapment per CT finding -Neurosurgery input appreciated, non surgical management recommended -Continue neuro checks -Fall precautions -Avoid any anticoagulation -repeat CT head, stable -pt. more lethargic, not eating. -appreciate Dr. Shah's input-recommends adjusting [employer] shunt, inc. to 200. This may be contributing to subdural hygromas will f/u with CT of head. Family agrees with changes. Recurrent UTI, chronic indwelling catheter. Urine culture positive for Enterobacter cloacae, Klebsiella oxytoca ESBL positive. -Continue with ertapenem -ID input appreciated -Anaya catheter has been changed in the emergency room -UC positive for Klebsiella oxytoca ESBL positive. -Blood cultures negative so far -ID recommends 2 weeks of Ertapenem/OK for PICC if remains afebrile and blood clx are negative @ alt least 72 hrs -will order PICC later today - Tachycardia, patient on beta blockers -Continuous cardiac telemetry monitoring -continue BB, HR better Altered mental status, likely multifactorial, no evidence of stroke. NPH with [employer] shunt Continue with neuro checks -neurosurgery following -pressure to be increased to 200 with f/u ct of head Type 2 diabetes Accu-Cheks before meals and at bedtime with insulin therapy Hypertension, stable -continue home medications Hyperlipidemia Continue with home medications SCDs for DVT prophylaxis, avoid anticoagulation PT eval and OOB with assistance Fall precautions high risk for aspiration, not eating much speech eval pending palliative care has been consulted to assist with clarifying goals of care, CODE STATUS. Patient has had a steady decline Discussed with patient's son yesterday and he is agreeable and would like to be involved in meeting. Discharge planning soon, will need IV antibiotics for 2 weeks. D/W RN D/W Dr. Greenwood This patient was seen by myself and Dr. Greenwood, this note is written on his behalf Problem Qualifiers (1) Fall: Qualified Codes: W19.XXXA - Unspecified fall, initial encounter (2) Facial laceration: Qualified Codes: S01.81XA - Laceration without foreign body of other part of head, initial encounter (3) Fracture of orbital wall: Qualified Codes: S02.80XA - Fracture of other specified skull and facial bones , unspecified side, initial encounter for closed fracture (4) Diabetes: Qualified Codes: E11.8 - Type 2 diabetes mellitus with unspecified complications (5) Peripheral neuropathy: Qualified Codes: G62.9 - Polyneuropathy, unspecified (6) Hyperlipidemia: Qualified Codes: E78.5 - Hyperlipidemia, unspecified (7) Hypertension: Qualified Codes: I10 - Essential (primary) hypertension (8) Urinary tract infection: Qualified Codes: T83.511D - Infection and inflammatory reaction due to indwelling urethral catheter, subsequent encounter; N39.0 - Urinary tract infection, site not specified Joan Martinez Nov 22, 2016 09:49
--- NOTE | 2016-11-22 11:02 | PD.CONS ---
Consult Service Palliative Care . Consult Requested By Molina ELDER . Primary Care Physician Unknown . Reason for Consultation a. To assist with evaluation and management of symptoms including: confusion , debility, poor appetite b. To assist medical decision maker(s) with: better understanding of current medical conditions; weighing benefits/burdens of medical treatment options; making medical treatment decisions. . HPI History of Present Illness Mr. Sims is a 81 year old who presented to [facility] via EMS from a rehabilitation facility on 11/18/2016 after an unwitnessed fall in which he sustained a laceration over his left eye. Reportedly, the patient was found on the floor and noted to have slurred speech and facial droop. Of note, the patient was recently seen in the ED on 11/13/16 status post a fall. Patient was pleasantly confused on exam, no focal deficits were noted. Patient is not on anticoagulation therapy. Apparently there was no loss of consciousness. The glucose was 163. The laceration was closed with benzoin tincture and Steri- Strips. Laboratory workup was completed. CBC remarkable for leukocytosis, WBC 17.9. Urinalysis positive for WBC in clumps and leukocyte esterase. BMP remarkable for mild hyponatremia, sodium 134, glucose 171. Troponin was negative. Patient had a UA done during ED visit that grew Enterobacter Cloacae and Klebsiella Oxytoca ESBL positive- sensitive to Imipenem. Patient's past medical history includes hypertension, HLD, BPH with urinary retention status post chronic indwelling catheter, diabetes (on Glucophage), COPD, GERD, and inguinal hernia. Patient had a SCHOOL MANAGER shunt placed in 2014 secondary to being diagnosed with normal pressure hydrocephalus. He follows Dr. Shah outpatient. . Diagnostic data: * Sodium: 134, potassium 4.3, chloride 96, carbon dioxide 28.8, glucose 171, calcium 9.2 * UN: 12, creatinine 1.10, GFR 64 * Total bilirubin: 0.6, AST 17, ALT 21, alkaline phosphatase 104 * Total creatine kinase: 1:30 * Troponin: <0.02 * Total protein: 7.5, albumin 3.3 * WBC: 17.9, hemoglobin 13.4, hematocrit 40.4, platelets 249, neutrophils 85.0% * Chest x-ray showed no acute cardiopulmonary disease * Maxillofacial CT revealed extraconal air within the left orbit with periorbital soft tissue swelling - suspected orbital floor fracture without entrapment. * A CT of the head revealed a thin parafalcine subdural hematoma. * CT cervical spine showed no fractures or dislocations,degenerative changes, calcified plaque involving the carotid arteries. Neurosurgery was consulted to evaluate the patient's occipital interhemispheric subdural hemorrhages. On exam patient's speech is dysarthric and he is unable to provide much history. Surgical intervention is not required per Dr. Pate. Recommendations were made for observation and rehabilitation. Follow-up CT of the head on 11/19/2016 revealed the small parafalcine subdural decreasing in size; small bilateral hygromas slightly larger. Infectious disease is following. Anaya catheter was changed in the ED. Meropenem changed back to Ertapenem on 10/20/16; anticipate 2 weeks of Ertapenem. No oral treatment options per ID. * Urine culture: + Klebsiella Oxytoca ESBL positive * Blood cultures negative to date Patient's mental status has declined acutely since his recent fall, however he has had several falls prior to this incident. Patient's son indicates his father has always indicated he would ant everything done to be kept alive, but they also want to consider his quality of life. Palliative Care was consulted to assist with symptom management and to discuss with the patient/family the benefits and burdens of his current illnesses and the options regarding future care. Spoke with patient's briefly telephone and was directed to contact the patient's son (Mihai) to coordinate a family meeting tomorrow afternoon on 11/23/2016 at 1 PM. . Function/Cognitive Trajectory Patient has been declining for several months per family report. He currently resides at a SNF for rehabilitation but has had ongoing setbacks and complications. Patient will be unable to return home without 24 hour paid caregivers secondary to his increasing needs. . 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 Dr. Bledsoe(urology) was consulted for possible suprapubic catheter placement due to BPH with urinary retention . Past Surgical History Appendectomy ~ 50 years ago HERNIA REPAIR. Indwelling catheter placed 09/20/15 . Reported Medications Tylenol (Acetaminophen) 325 Mg Tab 650 Mg PO Q4H PRN Metoprolol Tartrate 25 Mg Tab 6.25 Mg PO BID Miralax (Polyethylene Glycol 3350) 17 Gm Powd.pack 1 Pack PO HS Colace (Docusate Sodium) 100 Mg Capsule 1 Cap PO BID Magnesium Oxide 400 Mg Tab 400 Mg PO DAILY Reglan (Metoclopramide HCl) 10 Mg Tab 5 Mg PO TIDAC Phenergan Supp (Promethazine HCl) 25 Mg Supp 25 Mg RECTAL Q6H PRN Zofran Odt (Ondansetron Odt) 4 Mg Tab 4 Mg SL Q12HR PRN Glimepiride 1 Mg Tab 1 Mg PO DAILY Take with breakfast or first main meal Venlafaxine ER 24 HR (Venlafaxine HCl) 75 Mg Tab 150 Mg PO DAILY Lisinopril 2.5 Mg Tab 2.5 Mg PO DAILY Zocor (Simvastatin) 10 Mg Tab 10 Mg PO DAILY Zantac (Ranitidine HCl) 150 Mg Tab 150 Mg PO DAILY . Current Medications Medications (Trade) Dose Ordered Sig/Robert Route Start Time Stop Time Status Last Admin (NS Flush) 2 ml UNSCH PRN IVF 11/18/16 07:45 (Tylenol) 650 mg Q4H PRN PO 11/18/16 11:00 11/20/16 20:55 (Colace) 100 mg BID PO 11/18/16 21:00 11/21/16 09:52 (Mag-Ox) 400 mg DAILY PO 11/19/16 09:00 11/22/16 08:40 (Reglan) 5 mg TIDAC PO 11/18/16 12:00 11/22/16 08:41 (Miralax) 17 gm HS PO 11/18/16 21:00 11/18/16 22:13 (Effexor Xr) 150 mg DAILY PO 11/19/16 09:00 11/22/16 08:40 (Prinivil) 2.5 mg DAILY PO 11/19/16 09:00 11/22/16 08:40 (Pepcid) 20 mg DAILY PO 11/19/16 09:00 11/22/16 08:40 (Pravachol) 20 mg DAILY PO 11/19/16 09:00 11/22/16 08:41 (Lopressor) 25 mg Q12HR PO 11/18/16 21:00 11/22/16 08:40 (Zofran Inj) 4 mg Q8HR PRN IV PUSH 11/18/16 11:15 (D50w (Vial) Inj) 50 ml UNSCH PRN IV 11/18/16 11:15 (Glucagon Inj) 1 mg UNSCH PRN OTHER 11/18/16 11:15 (NovoLOG SUPPLEMENTAL SCALE) 1 ACHS SLIDING SCALE SQ 11/18/16 16:00 11/20/16 16:00 (Pill Splitter) 1 ea UNSCH PRN OTHER 11/18/16 11:30 Sodium Chloride 1,000 ml @ 100 mls/hr Q10H IV 11/18/16 16:00 11/22/16 09:02 Ertapenem 1000 mg/ Sodium Chloride 100 ml @ 200 mls/hr Q24H IV 11/20/16 17:00 11/21/16 17:46 Family History Father had epilepsy, mother was healthy. . Substance Use Tobacco: Former smoker. Patient smoke 20-25 [place] cigars daily for 35-40 years. Alcohol: Drinking alcohol in the 1960s Prescription med abuse: None known Illicits: None known . Psychosocial History Patient is originally from [place]. 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 He and his have been for 60+ years. They have 3 adult children, 2 sons and a daughter. Jefferson and Mihai live in [place]. Vielka lives in [place]. . Spiritual/Cultural Factors Islam maxine . Living Will: Completed, but not made available Health Care Surrogate: Copy in medical record Date completed: 02/23/2007 . Health Care Surrogate(s): Patient admitted his , Radha Sims, as his healthcare surrogate decision maker. His son, Mihai Sims, is designated as the alternate health care decision maker. . Documented care wishes: Patient has completed a living will. Family will attempt to find the document and bring it to the family meeting planned for tomorrow 11/23/2016 . Today's verbally stated goals: Patient is unable to participate and establishment of medical treatment goals secondary to his clinical condition and altered mental status . Family/friends goals: Aggressive goals pending further conversation with patient's family tomorrow 11/23 Ethical and Legal Issues No known ethical or legal issues impacting care at this time. . Physical Exam Vital Signs Date Time Temp Pulse Resp B/P (MAP) Pulse Ox O2 Delivery O2 Flow Rate FiO2 11/22/16 08:00 97.4 89 18 130/74 (92) 90 11/22/16 01:07 99.1 87 19 122/55 (77) 93 11/21/16 21:00 88 11/21/16 20:30 97.6 93 18 124/61 (82) 94 11/21/16 16:00 98.0 89 18 123/57 (79) 95 11/21/16 12:00 98.1 98 18 140/86 (104) 96 . Exam CONSTITUTIONAL/GENERAL: This is a frail, elderly male in no apparent distress. TUBES/LINES/DRAINS: Anaya catheter, PIV 1, nasal cannula SKIN: No jaundice, rashes, or lesions. Ecchymoses on upper extremities. No wounds seen anteriorly. Skin temperature appropriate. Not diaphoretic. HEAD: Atraumatic. Normocephalic. EYES: Pupils equal and round and reactive. No scleral icterus. No injection or drainage. ENT: Hearing grossly normal. Nose without bleeding or purulent drainage. NECK: Trachea midline. Supple, nontender. No palpable thyroid enlargement or nodularity. CARDIOVASCULAR: Regular rate and rhythm without murmurs, gallops, or rubs. No JVD. Peripheral pulses symmetric. RESPIRATORY/CHEST: Symmetric, unlabored respirations. Clear to auscultation. Breath diminished bilaterally. No wheezes, rales, or rhonchi. GASTROINTESTINAL: Abdomen soft, non-tender, nondistended. No guarding. Bowel sounds present. GENITOURINARY: Without palpable bladder distension. Anaya catheter in place. MUSCULOSKELETAL: Extremities without clubbing, cyanosis, or edema. No mottling or clubbing. LYMPHATICS: No palpable cervical or supraclavicular adenopathy. NEUROLOGICAL: Drowsy, responds to simple questions with brief answers. Speech it time is nonsensical. Follows some simple commands. PSYCHIATRIC: No apparent hallucinations or other psychotic thought process. . Diagnostic Tests Laboratory Laboratory Tests Test 11/19/16 10:08 White Blood Count 12.9 TH/MM3 (4.0-11.0) Red Blood Count 4.53 MIL/MM3 (4.50-5.90) Hemoglobin 12.6 GM/DL (13.0-17.0) Hematocrit 38.7 % (39.0-51.0) Mean Corpuscular Volume 85.4 FL (80.0-100.0) Mean Corpuscular Hemoglobin 27.8 PG (27.0-34.0) Mean Corpuscular Hemoglobin Concent 32.5 % (32.0-36.0) Red Cell Distribution Width 15.3 % (11.6-17.2) Platelet Count 191 TH/MM3 (150-450) Mean Platelet Volume 7.6 FL (7.0-11.0) Blood Urea Nitrogen 18 MG/DL (7-18) Creatinine 1.03 MG/DL (0.60-1.30) Random Glucose 133 MG/DL (74-106) Calcium Level 8.5 MG/DL (8.5-10.1) Sodium Level 135 MEQ/L (136-145) Potassium Level 4.0 MEQ/L (3.5-5.1) Chloride Level 99 MEQ/L (98-107) Carbon Dioxide Level 27.8 MEQ/L (21.0-32.0) Anion Gap 8 MEQ/L (5-15) Estimat Glomerular Filtration Rate 69 ML/MIN (>89) . Result Diagram: 11/19/16 1008 11/19/16 1008 Patient/Family Conference Present at Family Conference: Spoke with patient via telephone and was directed to call her son (Mihai ) to coordinate any family meetings. Spoke with patient's son and daughter-in- law (Mihai and Alba) via telephone for >1 hour. Discussed patient's current clinical condition, overall decline and prognosis. Questions answered to the best of my ability. Tentative family meeting scheduled for tomorrow 11/23/2016 at 1 PM. . Family Conference Location: Bedside, Telephone Issues Discussed: * Palliative care role, purpose, approach * Additional medical, psychosocial, and spiritual history * Patients general health, functional status, and cognitive changes in the months leading up to the current hospitalization * Patient/family understanding of the current medical problems * Patient/family understanding of prognosis * Patients goals of care as best understood from advance directives and/or conversations and/or values * Current medical treatment options and benefits/burdens of those options * Likely scenarios comparing ongoing aggressive care with a transition to comfort measures only * Questions answered to the best of my ability * Palliative care contact information provided . Assessment and Plan Disease Oriented Problem List: (1) Altered mental status, unspecified (2) UTI (3) Facial laceration (4) Fracture of orbital wall (5) Chronic indwelling Anaya catheter (6) NPH (normal pressure hydrocephalus) (7) Diabetes (8) BPH (benign prostatic hyperplasia) (9) Diabetes mellitus type 2, uncontrolled (10) Hyperlipidemia (11) Hypertension (12) Acute kidney injury Symptom Scale: (1) Confusion (2) Debility (3) Decrease in appetite Pertinent Non-Medical Issues Psychosocial: Spoke with patient via telephone and was directed to call her son (Mihai) to coordinate any family meetings. Spoke with patient's son and [id number] (Jeanna) via telephone for >1 hour. Discussed patient's current clinical condition, overall decline and prognosis. Questions answered to the best of my ability. Tentative family meeting scheduled for tomorrow 11/23/2016 at 1 PM. Spiritual: Islam maxine Legal: Patient admitted his , Radha Sims, as his healthcare surrogate decision maker. His son, Mihai Sims, is designated as the alternate health care decision maker. Ethical issues impacting care: No known ethical issues impacting care at this time . Important Contacts Alla Sims, : [phone] or [phone] Mihai Sims, son: [phone] . Code Status: Full Code Plan * FULL CODE * Spoke with patient via telephone and was directed to call her son ( Mihai) to coordinate any family meetings. Spoke with patient's son and [id number]-kws (Jeanna) via telephone for >1 hour. Discussed patient's current clinical condition, overall decline and prognosis. Questions answered to the best of my ability. Tentative family meeting scheduled for tomorrow 11/23/2016 at 1 PM. * Decision-making: Patient admitted his , Radha Sims, as his healthcare surrogate decision maker. His son, Mihai Sims, is designated as the alternate health care decision maker. Patient's wishes to make all decisions in conjunction with her son, Mihai. * Goals remain aggressive at this time. * Symptom management: = Confusion: Patient with some baseline dementia, now with acute change in mental status. NPH with SCHOOL MANAGER shunt placement. Dr. Shah follows. Per Dr. Shah, patient has sustained a recent syncopal episode with secondary ischemic or hypoxic encephalopathy, possibly with further contribution of urosepsis/hypertension.He does have mild primarily frontoparietal subdural effusions noted on his most recent CT scan. A prior study will be located for comparison, but this is unlikely a cause of his present mental status changes. = Decreased appetite: Speech therapy following, currently on pureed diet with thin liquids. Per documentation, patient nutritional intake is inadequate. Recommendation to consult dietary for calorie count if intake remains poor. Family is attempting to find living will to determine what patient's directives would be regarding artificial nutrition. = Debility: Significant deconditioning likely related to multiple co -morbid conditions in addition to recent acute decline. Patient currently resides at a SNF receiving rehab; family does not feel patient is getting stronger. Palliative care is meeting the family, who wishes to discuss quality of life and medical goals of care. * Palliative care contact information provided to the patient's and son * Discussed with patient's nurse, Lena * Palliative care will continue to follow this patient to establish trust, assist with symptom management and clarification of medical treatment goals. . Thank you for the opportunity to participate in the care of Mr. Sims. . Attestation To help prompt me to consider important information that might be impacting today's encounter and assessment, information from prior notes written by myself or my colleagues may have been "brought forward" into today's note. My signature on this note, however, is an attestation that I personally performed the exam, history, and/or decision-making noted today, and, unless otherwise indicated, the interactions with patient, family, and staff as well as the review of records all occurred today. I also attest that the listed assessment and stated plan reflect my best clinical judgment today based on the combination of historical information, prior notes, and today's exam/ interactions. When time spent is documented, it refers only to time spent today by the signer, or if indicated, combined time spent today by collaborating physician/nurse practitioner. . Regla Mcconnell Nov 22, 2016 10:48
[2016-11-22] MEDS: ERTAPENEM INJ 1,000 MG in SODIUM CHLORIDE 0.9% INJ 100 ML IV SCH (16:32)
[2016-11-22 19:22] LABS: AUTOMATED NEUTROPHIL # 9.2 TH/MM3 (1.8-7.7); BASOPHIL % 0.4 % (0.0-2.0); EOSINOPHIL # 0.3 TH/MM3 (0-0.4); EOSINOPHIL % 2.4 % (0.0-4.0); HEMATOCRIT 35.7 % (39.0-51.0); HEMO FLAGS DIFF FINAL; LYMPH % 7.3 % (9.0-44.0); LYMPHOCYTE # 0.8 TH/MM3 (1.0-4.8); MEAN CELL VOLUME 85.6 FL (80.0-100.0); MEAN CORPUSCULAR HEMOGLOBIN 27.8 PG (27.0-34.0); MEAN CORPUSCULAR HGB CONC 32.5 % (32.0-36.0); MONO % 8.9 % (0.0-8.0); PLATELET COUNT 283 TH/MM3 (150-450); RED BLOOD COUNT 4.17 MIL/MM3 (4.50-5.90); WHITE BLOOD COUNT 11.3 TH/MM3 (4.0-11.0)
[2016-11-22 19:40] LABS: BICARBONATE 25.4 MEQ/L (21.0-32.0); POTASSIUM 3.9 MEQ/L (3.5-5.1)
[2016-11-22] MEDS: POLYETHYLENE GLYCOL 17 GM PKG PO SCH (20:36)
[2016-11-23] VITALS (8 sets, daily range): BP systolic 125–165; BP diastolic 69–91; PULSE 81–97; RESP 16–22; TEMP 98–99.2; O2SAT 94–100
[2016-11-23] MEDS: SODIUM CHLOR 0.9% 1000 ML INJ 1,000 ML IV SCH ×2 (06:00→16:22)
[2016-11-23] MEDS: INSULIN ASPART SUPPLEMENTAL SCALE SQ SCH ×4 (07:00→20:42)
[2016-11-23] MEDS: METOCLOPRAMIDE HCL 10 MG TAB PO SCH ×3 (08:00→16:24)
[2016-11-23] MEDS: METOPROLOL TARTRATE 25 MG TAB PO SCH ×2 (09:00→21:00)
[2016-11-23] MEDS: FAMOTIDINE 20 MG TAB PO SCH (09:00)
[2016-11-23] MEDS: DOCUSATE SODIUM 100 MG CAP PO SCH ×2 (09:00→21:00)
[2016-11-23] MEDS: LISINOPRIL 5 MG TAB PO SCH (09:00)
[2016-11-23] MEDS: PRAVASTATIN SOD 20 MG TAB PO SCH (09:00)
[2016-11-23] MEDS: VENLAFAXINE HCL XR 75 MG CAP PO SCH (09:00)
[2016-11-23] MEDS: MAGNESIUM OXIDE 400 MG TAB PO SCH (09:00)
--- NOTE | 2016-11-23 10:20 | HHI.PR ---
Subjective Subjective Remarks Lethargic Randomly has minimal movement, right hand Audible rhonchi Anaya catheter in place Color pale, Temp high, noted 99.2 otherwise normal range (Taylor Cm) Review of Systems Constitutional Constitutional Remarks Limited ROS, grimace to increased movement (Taylor Cm) Vitals/Results Vital Signs Vital Signs Date Time Temp Pulse Resp B/P (MAP) Pulse Ox O2 Delivery O2 Flow Rate FiO2 11/23/16 08:07 99.2 89 22 151/69 (96) 96 11/23/16 03:42 98.0 86 16 137/81 (99) 100 11/22/16 23:43 98.7 82 16 139/72 (94) 100 11/22/16 20:43 98.9 86 16 144/69 (94) 100 11/22/16 20:00 93 11/22/16 16:40 98.1 80 18 153/74 (100) 99 11/22/16 12:07 98.0 72 18 130/62 (84) 96 (Taylor Cm) CBC/BMP: 11/22/16 1802 11/22/16 1802 Lab Results Laboratory Tests Test 11/22/16 18:02 White Blood Count 11.3 TH/MM3 Red Blood Count 4.17 MIL/MM3 Hemoglobin 11.6 GM/DL Hematocrit 35.7 % Mean Corpuscular Volume 85.6 FL Mean Corpuscular Hemoglobin 27.8 PG Mean Corpuscular Hemoglobin Concent 32.5 % Red Cell Distribution Width 15.0 % Platelet Count 283 TH/MM3 Mean Platelet Volume 8.2 FL Neutrophils (%) (Auto) 81.0 % Lymphocytes (%) (Auto) 7.3 % Monocytes (%) (Auto) 8.9 % Eosinophils (%) (Auto) 2.4 % Basophils (%) (Auto) 0.4 % Neutrophils # (Auto) 9.2 TH/MM3 Lymphocytes # (Auto) 0.8 TH/MM3 Monocytes # (Auto) 1.0 TH/MM3 Eosinophils # (Auto) 0.3 TH/MM3 Basophils # (Auto) 0.0 TH/MM3 CBC Comment DIFF FINAL Differential Comment Blood Urea Nitrogen 19 MG/DL Creatinine 0.83 MG/DL Random Glucose 202 MG/DL Calcium Level 8.4 MG/DL Sodium Level 136 MEQ/L Potassium Level 3.9 MEQ/L Chloride Level 103 MEQ/L Carbon Dioxide Level 25.4 MEQ/L Anion Gap 8 MEQ/L Estimat Glomerular Filtration Rate 89 ML/MIN (Taylor Cm. ROLLOFF TRUCK DRIVER) Physical Exam General General Appearance: Sleeping (lethargic) (Taylor Cm. ROLLOFF TRUCK DRIVER) Eyes Eye Remarks Unable to examine left eye (Taylor Cm ROLLOFF TRUCK DRIVER) Neck Neck Exam: Neck Supple (Taylor Cm. ROLLOFF TRUCK DRIVER) Pulmonary Resp Exam: Rhonchi, Decreased Bases, Diminished Breath Sounds, Poor Inspiratory Effort (Taylor Cm. ROLLOFF TRUCK DRIVER) Gastrointestinal/Abdomen GI Exam: Soft, Bowel Sounds Present (soft) (Taylor Cm. ROLLOFF TRUCK DRIVER) Genitourinary Remarks Anaya catheter, orange clear urine (Taylor Cm. ROLLOFF TRUCK DRIVER) Integumentary Skin Exam: Warm, Dry (Taylor Cm. ROLLOFF TRUCK DRIVER) Extremeties Extremities Exam: No Edema (lower extremity) (Taylor Cm. ROLLOFF TRUCK DRIVER) Neurologic Neuro Remarks Lethargic (Taylor Cm M. ROLLOFF TRUCK DRIVER) Assessment/Plan Assessment/Plan Vital signs reviewed, Labs reviewed, mild leukocytosis, anemia, positive urine cultures, blood cultures pending Subdural hematoma, status post fall with left for head laceration and periorbital bruising Appreciate Neurosurgery input , no surgical recommendation Patient continues with lethargy, will randomly open eyes to tactile stimul Recurrent UTI, chronic indwelling catheter. Urine culture positive for Enterobacter cloacae, Klebsiella oxytoca ESBL positive ID input appreciated , recommends 2 weeks of Ertapenem. PICC line Note that Anaya catheter , changed emergency room. Tachycardia initially patient on beta blockers telemetry monitoring Altered mental status, likely multifactorial, no evidence of stroke. Continues to have lethargy Appreciate neurosurgery input Shunt pressure increased of 200 mm water Type 2 diabetes, uncontrolled Accu-Cheks before meals and at bedtime with insulin therapy Hypertension, hyperlipidemia both stable SCDs for DVT prophylaxis, avoid anticoagulation PT eval and OOB with assistance Fall precautions high risk for aspiration, audible rhonchi in upper airway's speech involved in his care palliative care consult could , meeting set up for 1 PM today to discuss CODE STATUS. Patient has had a steady decline Currently patient remains full code full aggressive care Discharge planning placement dependent on family meeting today D/W RN D/W Dr. Greenwood, seen on his behalf No family present (Taylor Cm) Assessment/Plan Patient seen and examined and as above Labs reviewed Appreciate wine consultant help Medications reviewed Continue current management discussed with RN (Radhames Greenwood MD) Taylor Cm Nov 23, 2016 10:20 Radhames Greenwood MD Nov 23, 2016 15:56
[2016-11-23] MEDS ORDERED: ENALAPRILAT 1.25 MG/ML VIAL IV PUSH PRN (14:45)
--- NOTE | 2016-11-23 14:56 | HHI.IDPN ---
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 Vital Signs Date Time Temp Pulse Resp B/P (MAP) Pulse Ox O2 Delivery O2 Flow Rate FiO2 11/23/16 11:43 98.9 92 16 143/74 (97) 97 11/23/16 08:07 99.2 89 22 151/69 (96) 96 11/23/16 08:00 81 11/23/16 03:42 98.0 86 16 137/81 (99) 100 11/22/16 23:43 98.7 82 16 139/72 (94) 100 11/22/16 20:43 98.9 86 16 144/69 (94) 100 11/22/16 20:00 93 11/22/16 16:40 98.1 80 18 153/74 (100) 99 11/23/16 11/23/16 11/24/16 15:00 23:00 07:00 Output Total 425 ml Balance -425 ml Output Urine Total 425 ml # Bowel Movements 1 . Laboratory Tests Test 11/22/16 18:02 White Blood Count 11.3 TH/MM3 Red Blood Count 4.17 MIL/MM3 Hemoglobin 11.6 GM/DL Hematocrit 35.7 % Mean Corpuscular Volume 85.6 FL Mean Corpuscular Hemoglobin 27.8 PG Mean Corpuscular Hemoglobin Concent 32.5 % Red Cell Distribution Width 15.0 % Platelet Count 283 TH/MM3 Mean Platelet Volume 8.2 FL Neutrophils (%) (Auto) 81.0 % Lymphocytes (%) (Auto) 7.3 % Monocytes (%) (Auto) 8.9 % Eosinophils (%) (Auto) 2.4 % Basophils (%) (Auto) 0.4 % Neutrophils # (Auto) 9.2 TH/MM3 Lymphocytes # (Auto) 0.8 TH/MM3 Monocytes # (Auto) 1.0 TH/MM3 Eosinophils # (Auto) 0.3 TH/MM3 Basophils # (Auto) 0.0 TH/MM3 CBC Comment DIFF FINAL Differential Comment Laboratory Tests Test 11/22/16 18:02 Blood Urea Nitrogen 19 MG/DL Creatinine 0.83 MG/DL Random Glucose 202 MG/DL Calcium Level 8.4 MG/DL Sodium Level 136 MEQ/L Potassium Level 3.9 MEQ/L Chloride Level 103 MEQ/L Carbon Dioxide Level 25.4 MEQ/L Anion Gap 8 MEQ/L Estimat Glomerular Filtration Rate 89 ML/MIN Imaging Last Impressions Head CT 11/19/16 0800 Signed Impressions: Service Date/Time: Saturday, November 19, 2016 09:19 - CONCLUSION: Small parafalcine subdural decreasing in size. Small bilateral hygromas slightly larger. Heraclio Marrufo MD FACR Chest X-Ray 11/18/16737 Signed Impressions: Service Date/Time: October 07:52 - CONCLUSION: No acute cardiac pulmonary disease. Karsten Bledsoe Jr., MD Maxillofacial CT 11/18/16736 Signed Impressions: Service Date/Time: , November 18, 2016 07:44 - CONCLUSION: 1. There is extraconal air within the left orbit with periorbital soft tissue swelling. I' m not clearly able to see a fracture on this study that is slightly limited by motion artifact but I suspect there is an orbital floor fracture without entrapment. Karsten Bledsoe Jr., MD Cervical Spine CT 11/18/16736 Signed Impressions: Service Date/Time: October 07:44 - CONCLUSION: 1. No fracture or dislocation. 2. Degenerative changes. 3. Calcified plaque involving the carotid arteries. Karsten Bledsoe Jr., MD Physical Exam CONSTITUTIONAL/GENERAL: This is an adequately nourished patient, in no apparent distress. SKIN: No jaundice, rashes, or lesions. Facial ecchymoses . HEAD: facial echymposis, stitche si n place over L spiritism laceration. Normocephalic. EYES: Pupils equal and round and reactive. Extraocular motions intact. No scleral icterus. No injection or drainage. Fundi not examined. ENT: Hearing not tested CARDIOVASCULAR: Regular rate and rhythm without murmurs, gallops, or rubs. No JVD. Peripheral pulses symmetric. RESPIRATORY/CHEST: Symmetric, unlabored respirations. Clear to auscultation. Breath sounds equal bilaterally. No wheezes, rales, or rhonchi. GASTROINTESTINAL: Abdomen soft, non-tender, nondistended. No hepato-splenomegaly , or palpable masses. No guarding. Bowel sounds present. GENITOURINARY: Without palpable bladder distension. Anaya catheter in place with clear yellow urine MUSCULOSKELETAL: Extremities without clubbing, cyanosis, or edema. No joint tenderness or effusion noted. No calf tenderness. No mottling or clubbing. LYMPHATICS: No palpable cervical or supraclavicular adenopathy. 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
--- NOTE | 2016-11-23 16:20 | HHI.HCPN ---
Reason for visit a. To assist with evaluation and management of symptoms including: confusion , debility, poor appetite b. To assist medical decision maker(s) with: better understanding of current medical conditions; weighing benefits/burdens of medical treatment options; making medical treatment decisions. . Subjective/Interval History Mr. Sims is a 81 year old who [place] [facility] [place] a rehabilitation facility on 11/18/2016 after an unwitnessed fall in which he sustained a laceration over his left eye. Reportedly, the patient was found on the floor and noted to have slurred speech and facial droop. Of note, the patient was recently seen in the ED on 11/13/16 status post a fall. Patient was pleasantly confused on exam, no focal deficits were noted. Patient is not on anticoagulation therapy. Apparently there was no loss of consciousness. The glucose was 163. The laceration was closed with benzoin tincture and Steri- Strips. Laboratory workup was completed. CBC remarkable for leukocytosis, WBC 17.9. Urinalysis positive for WBC in clumps and leukocyte esterase. BMP remarkable for mild hyponatremia, sodium 134, glucose 171. Troponin was negative. Patient had a UA done during ED visit that grew Enterobacter Cloacae and Klebsiella Oxytoca ESBL positive- sensitive to Imipenem. Patient's past medical history includes hypertension, HLD, BPH with urinary retention status post chronic indwelling catheter, diabetes (on Glucophage), COPD, GERD, and inguinal hernia. Patient had a POLISH MAKER shunt placed in 2014 secondary to being diagnosed with normal pressure hydrocephalus. He follows Dr. Shah outpatient. . Diagnostic data: * Sodium: 134, potassium 4.3, chloride 96, carbon dioxide 28.8, glucose 171, calcium 9.2 * UN: 12, creatinine 1.10, GFR 64 * Total bilirubin: 0.6, AST 17, ALT 21, alkaline phosphatase 104 * Total creatine kinase: 1:30 * Troponin: <0.02 * Total protein: 7.5, albumin 3.3 * WBC: 17.9, hemoglobin 13.4, hematocrit 40.4, platelets 249, neutrophils 85.0% * Chest x-ray showed no acute cardiopulmonary disease * Maxillofacial CT revealed extraconal air within the left orbit with periorbital soft tissue swelling - suspected orbital floor fracture without entrapment. * A CT of the head revealed a thin parafalcine subdural hematoma. * CT cervical spine showed no fractures or dislocations,degenerative changes, calcified plaque involving the carotid arteries. Neurosurgery was consulted to evaluate the patient's occipital interhemispheric subdural hemorrhages. On exam patient's speech is dysarthric and he is unable to provide much history. Surgical intervention is not required per Dr. Pate. Recommendations were made for observation and rehabilitation. Follow-up CT of the head on 11/19/2016 revealed the small parafalcine subdural decreasing in size; small bilateral hygromas slightly larger. Infectious disease is following. Anaya catheter was changed in the ED. Meropenem changed back to Ertapenem on 10/20/16; anticipate 2 weeks of Ertapenem. No oral treatment options per ID. * Urine culture: + Klebsiella Oxytoca ESBL positive * Blood cultures negative to date Patient's mental status has declined acutely since his recent fall, however he has had several falls prior to this incident. Patient's son indicates his father has always indicated he would ant everything done to be kept alive, but they also want to consider his quality of life. Palliative Care was consulted to assist with symptom management and to discuss with the patient/family the benefits and burdens of his current illnesses and the options regarding future care. Spoke with patient's briefly telephone and was directed to contact the patient's son (Mihai) to coordinate a family meeting tomorrow afternoon on 11/23/2016 at 1 PM. . Advance Directives Living Will: Completed, but not made available Health Care Surrogate: Copy in medical record Advance Directive Specifics Date completed: 02/23/2007 . Health Care Surrogate(s): Patient admitted his , Radha Sims, as his healthcare surrogate decision maker. His son, Mihai Sims, is designated as the alternate health care decision maker. . Documented care wishes: Patient has completed a living will. Family will attempt to find the document and bring it to the family meeting planned for tomorrow 11/23/2016 . Objective Vital Signs Date Time Temp Pulse Resp B/P (MAP) Pulse Ox O2 Delivery O2 Flow Rate FiO2 11/23/16 16:03 98.5 90 16 165/74 (104) 99 11/23/16 11:43 98.9 92 16 143/74 (97) 97 11/23/16 08:07 99.2 89 22 151/69 (96) 96 11/23/16 08:00 81 9/5/17 03:42 98.0 86 16 137/81 (99) 100 11/22/16 23:43 98.7 82 16 139/72 (94) 100 11/22/16 20:43 98.9 86 16 144/69 (94) 100 11/22/16 20:00 93 11/22/16 16:40 98.1 80 18 153/74 (100) 99 Intake & Output 11/23/16 11/23/16 06:59 18:59 Intake Total 805 ml Output Total 425 ml Balance 805 ml -425 ml IV Total 805 ml Output Urine Total 425 ml # Bowel Movements 1 Physical Exam CONSTITUTIONAL/GENERAL: This is a frail, elderly male in no apparent distress. TUBES/LINES/DRAINS: Anaya catheter, PIV 1, nasal cannula SKIN: No jaundice, rashes, or lesions. Ecchymoses on upper extremities. No wounds seen anteriorly. Skin temperature appropriate. Not diaphoretic. HEAD: Atraumatic. Normocephalic. EYES: Pupils equal and round and reactive. No scleral icterus. No injection or drainage. ENT: Hearing grossly normal. Nose without bleeding or purulent drainage. NECK: Trachea midline. Supple, nontender. No palpable thyroid enlargement or nodularity. CARDIOVASCULAR: Regular rate and rhythm without murmurs, gallops, or rubs. No JVD. Peripheral pulses symmetric. RESPIRATORY/CHEST: Symmetric, unlabored respirations. Clear to auscultation. Breath diminished bilaterally. No wheezes, rales, or rhonchi. GASTROINTESTINAL: Abdomen soft, non-tender, nondistended. No guarding. Bowel sounds present. GENITOURINARY: Without palpable bladder distension. Anaya catheter in place. MUSCULOSKELETAL: Extremities without clubbing, cyanosis, or edema. No mottling or clubbing. LYMPHATICS: No palpable cervical or supraclavicular adenopathy. NEUROLOGICAL: Drowsy, responds to simple questions with brief answers. Speech it time is nonsensical. Follows some simple commands. PSYCHIATRIC: No apparent hallucinations or other psychotic thought process. . Diagnostic Tests Laboratory Laboratory Tests Test 11/22/16 18:02 White Blood Count 11.3 TH/MM3 (4.0-11.0) Red Blood Count 4.17 MIL/MM3 (4.50-5.90) Hemoglobin 11.6 GM/DL (13.0-17.0) Hematocrit 35.7 % (39.0-51.0) Mean Corpuscular Volume 85.6 FL (80.0-100.0) Mean Corpuscular Hemoglobin 27.8 PG (27.0-34.0) Mean Corpuscular Hemoglobin Concent 32.5 % (32.0-36.0) Red Cell Distribution Width 15.0 % (11.6-17.2) Platelet Count 283 TH/MM3 (150-450) Mean Platelet Volume 8.2 FL (7.0-11.0) Neutrophils (%) (Auto) 81.0 % (16.0-70.0) Lymphocytes (%) (Auto) 7.3 % (9.0-44.0) Monocytes (%) (Auto) 8.9 % (0.0-8.0) Eosinophils (%) (Auto) 2.4 % (0.0-4.0) Basophils (%) (Auto) 0.4 % (0.0-2.0) Neutrophils # (Auto) 9.2 TH/MM3 (1.8-7.7) Lymphocytes # (Auto) 0.8 TH/MM3 (1.0-4.8) Monocytes # (Auto) 1.0 TH/MM3 (0-0.9) Eosinophils # (Auto) 0.3 TH/MM3 (0-0.4) Basophils # (Auto) 0.0 TH/MM3 (0-0.2) CBC Comment DIFF FINAL Differential Comment Blood Urea Nitrogen 19 MG/DL (7-18) Creatinine 0.83 MG/DL (0.60-1.30) Random Glucose 202 MG/DL (74-106) Calcium Level 8.4 MG/DL (8.5-10.1) Sodium Level 136 MEQ/L (136-145) Potassium Level 3.9 MEQ/L (3.5-5.1) Chloride Level 103 MEQ/L (98-107) Carbon Dioxide Level 25.4 MEQ/L (21.0-32.0) Anion Gap 8 MEQ/L (5-15) Estimat Glomerular Filtration Rate 89 ML/MIN (>89) Result Diagram: 11/22/16180111/22/161801 Assessment and Plan Disease Oriented Problem List: (1) Altered mental status, unspecified (2) UTI (3) Facial laceration (4) Fracture of orbital wall (5) Chronic indwelling Anaya catheter (6) NPH (normal pressure hydrocephalus) (7) Diabetes (8) BPH (benign prostatic hyperplasia) (9) Diabetes mellitus type 2, uncontrolled (10) Hyperlipidemia (11) Hypertension (12) Acute kidney injury Symptom Scale: (1) Confusion (2) Debility (3) Decrease in appetite Pertinent Non-Medical Issues Psychosocial: Spoke with patient via telephone and was directed to call her son (Mihai) to coordinate any family meetings. Spoke with patient's son and [id number] (Mihai and Alba) via telephone for >1 hour. Discussed patient's current clinical condition, overall decline and prognosis. Questions answered to the best of my ability. Tentative family meeting scheduled for tomorrow 11/23/2016 at 1 PM. Spiritual: Jain maxine Legal: Patient admitted his , Radha Sims, as his healthcare surrogate decision maker. His son, Mihai Sims, is designated as the alternate health care decision maker. Ethical issues impacting care: No known ethical issues impacting care at this time . Important Contacts Alla Sims, : [phone] or [phone] Mihai Sims, son: [phone] . Code Status: Full Code Plan * NO CODE-DNR/DNI * Decision-making: Patient admitted his , Radha Sims, as his healthcare surrogate decision maker. His son, Mihai Sims, is designated as the alternate health care decision maker. Patient's wishes to make all decisions in conjunction with her son, Mihai. * Goals remain aggressive at this time. * Discussed patient with Kyleigh Wood, patient's nurse, caseworker protective services (Monie), and Sudhakar from [facility]. * Symptom management: = Confusion: Patient with some baseline dementia, now with acute change in mental status. NPH with POLISH MAKER shunt placement. Dr. Shah follows. Per Dr. Shah, patient has sustained a recent syncopal episode with secondary ischemic or hypoxic encephalopathy, possibly with further contribution of urosepsis/hypertension.He does have mild primarily frontoparietal subdural effusions noted on his most recent CT scan. A prior study will be located for comparison, but this is unlikely a cause of his present mental status changes. 11/23/16: Patient increasingly confused today. Family states Dr. Shah has recommended they allow the patient 1 week to see if he returns to his baseline mental status before for making any changes in medical treatment goals. That is what they plan to do. = Decreased appetite: Speech therapy following, currently on pureed diet with thin liquids. Per documentation, patient nutritional intake is inadequate. Patient was unable to take PO medications today per nursing report. Speech was reconsulted for repeat swallow evaluation. Dietary was consulted for calorie count. Family is uncertain if they would proceed with PEG tube placement if indicated, and they feel this information may help guide their medical treatment goals moving forward. = Debility: Significant deconditioning likely related to multiple co -morbid conditions in addition to recent acute decline. Patient currently resides at a SNF receiving rehab; family does not feel patient is getting stronger. Palliative care is meeting the family, who wishes to discuss quality of life and medical goals of care. * Palliative care met with patient's and [id number], patient's son participated via conference call. Spoke with family for >90 to discuss patient' s current clinical condition and progressive decline. We discussed aggressive versus comfort focused medical treatment goals. * Discussed the process of cardiopulmonary resuscitation including compressions , medications, cardioversion and intubation/mechanical ventilation. Family has requested that the patient's CODE STATUS be changed to NO CODE-DNR/DNI sitting the patient is a 81-year-old man who has had a good life and wish to allow him to pass peacefully and naturally when it is his time. * Discussed with patient's nurse. * Palliative care will continue to follow this patient to establish trust, assist with symptom management and clarification of medical treatment goals. . Attestation To help prompt me to consider important information that might be impacting today's encounter and assessment, information from prior notes written by myself or my colleagues may have been "brought forward" into today's note. My signature on this note, however, is an attestation that I personally performed the exam, history, and/or decision-making noted today, and, unless otherwise indicated, the interactions with patient, family, and staff as well as the review of records all occurred today. I also attest that the listed assessment and stated plan reflect my best clinical judgment today based on the combination of historical information, prior notes, and today's exam/ interactions. When time spent is documented, it refers only to time spent today by the signer, or if indicated, combined time spent today by collaborating physician/nurse practitioner. . Regla Mcconnell Nov 23, 2016 16:20
[2016-11-23] MEDS: ERTAPENEM INJ 1,000 MG in SODIUM CHLORIDE 0.9% INJ 100 ML IV SCH (16:22)
[2016-11-23] MEDS: POLYETHYLENE GLYCOL 17 GM PKG PO SCH (21:00)
[2016-11-24] VITALS (9 sets, daily range): BP systolic 120–176; BP diastolic 78–88; PULSE 84–115; RESP 20–22; TEMP 97–99.4; O2SAT 93–99
[2016-11-24] MEDS: SODIUM CHLOR 0.9% 1000 ML INJ 1,000 ML IV SCH ×3 (01:59→22:00)
[2016-11-24] MEDS: INSULIN ASPART SUPPLEMENTAL SCALE SQ SCH ×4 (06:39→20:54)
[2016-11-24] MEDS: PRAVASTATIN SOD 20 MG TAB PO SCH (09:00)
[2016-11-24] MEDS: FAMOTIDINE 20 MG TAB PO SCH (09:08)
[2016-11-24] MEDS: MAGNESIUM OXIDE 400 MG TAB PO SCH (09:08)
[2016-11-24] MEDS: DOCUSATE SODIUM 100 MG CAP PO SCH ×2 (09:09→20:54)
[2016-11-24] MEDS: METOPROLOL TARTRATE 25 MG TAB PO SCH ×2 (09:09→20:53)
[2016-11-24] MEDS: VENLAFAXINE HCL XR 75 MG CAP PO SCH (09:09)
[2016-11-24] MEDS: LISINOPRIL 5 MG TAB PO SCH (09:09)
[2016-11-24] MEDS: METOCLOPRAMIDE HCL 10 MG TAB PO SCH ×3 (09:09→16:16)
[2016-11-24 10:12] LABS: AUTOMATED NEUTROPHIL # 8.9 TH/MM3 (1.8-7.7); BASOPHIL % 0.4 % (0.0-2.0); EOSINOPHIL # 0.2 TH/MM3 (0-0.4); EOSINOPHIL % 1.5 % (0.0-4.0); HEMATOCRIT 33.2 % (39.0-51.0); HEMO FLAGS DIFF FINAL; LYMPH % 8.1 % (9.0-44.0); LYMPHOCYTE # 0.9 TH/MM3 (1.0-4.8); MEAN CELL VOLUME 84.7 FL (80.0-100.0); MEAN CORPUSCULAR HEMOGLOBIN 28.2 PG (27.0-34.0); MEAN CORPUSCULAR HGB CONC 33.3 % (32.0-36.0); MONO % 10.5 % (0.0-8.0); NEUT % 79.5 % (16.0-70.0); PLATELET COUNT 300 TH/MM3 (150-450); RED BLOOD COUNT 3.92 MIL/MM3 (4.50-5.90); RED CELL DISTRIBUTION WIDTH 14.7 % (11.6-17.2); WHITE BLOOD COUNT 11.2 TH/MM3 (4.0-11.0)
--- NOTE | 2016-11-24 10:29 | HHI.PR ---
Subjective Subjective Remarks Resting very still but does respond weakly to simple questions with yes or no Color pale with left eye bruising gradual improvement No family present Code status now DO NOT RESUSCITATE (Taylor Cm) Review of Systems Constitutional Constitutional Remarks Limited ROS, grimace to increased movement (Taylor Cm) Vitals/Results Vital Signs Vital Signs Date Time Temp Pulse Resp B/P (MAP) Pulse Ox O2 Delivery O2 Flow Rate FiO2 11/24/16 08:08 99.1 115 20 162/81 (108) 96 11/24/16 07:00 103 11/24/16 04:00 97.0 88 22 120/80 (93) 93 11/24/16 00:04 98 11/24/16 00:00 99.0 89 21 125/88 (100) 94 11/23/16 20:45 99.2 97 21 129/91 (104) 94 11/23/16 16:03 98.5 90 16 165/74 (104) 99 11/23/16 15:00 90 11/23/16 11:43 98.9 92 16 143/74 (97) 97 (Taylor Cm) CBC/BMP: 11/24/16 0830 11/22/16 1802 Lab Results Laboratory Tests Test 11/24/16 08:30 White Blood Count 11.2 TH/MM3 Red Blood Count 3.92 MIL/MM3 Hemoglobin 11.1 GM/DL Hematocrit 33.2 % Mean Corpuscular Volume 84.7 FL Mean Corpuscular Hemoglobin 28.2 PG Mean Corpuscular Hemoglobin Concent 33.3 % Red Cell Distribution Width 14.7 % Platelet Count 300 TH/MM3 Mean Platelet Volume 8.4 FL Neutrophils (%) (Auto) 79.5 % Lymphocytes (%) (Auto) 8.1 % Monocytes (%) (Auto) 10.5 % Eosinophils (%) (Auto) 1.5 % Basophils (%) (Auto) 0.4 % Neutrophils # (Auto) 8.9 TH/MM3 Lymphocytes # (Auto) 0.9 TH/MM3 Monocytes # (Auto) 1.2 TH/MM3 Eosinophils # (Auto) 0.2 TH/MM3 Basophils # (Auto) 0.0 TH/MM3 CBC Comment DIFF FINAL Differential Comment Current Medications Last Impressions Head CT 11/19/16 0800 Signed Impressions: Service Date/Time: Saturday, November 19, 2016 09:19 - CONCLUSION: Small parafalcine subdural decreasing in size. Small bilateral hygromas slightly larger. Heraclio Marrufo MD FACR Chest X-Ray 11/18/16737 Signed Impressions: Service Date/Time: , November 18, 2016 07:52 - CONCLUSION: No acute cardiac pulmonary disease. Karsten Bledsoe Jr., MD Maxillofacial CT 11/18/16736 Signed Impressions: Service Date/Time: , November 18, 2016 07:44 - CONCLUSION: 1. There is extraconal air within the left orbit with periorbital soft tissue swelling. I' m not clearly able to see a fracture on this study that is slightly limited by motion artifact but I suspect there is an orbital floor fracture without entrapment. Karsten Bledsoe Jr., MD Cervical Spine CT 11/18/16736 Signed Impressions: Service Date/Time: , November 18, 2016 07:44 - CONCLUSION: 1. No fracture or dislocation. 2. Degenerative changes. 3. Calcified plaque involving the carotid arteries. Karsten Bledsoe Jr., MD (Taylor Cm) Physical Exam General General Appearance: Sleeping (lethargic) Appearance Remarks Arouses to verbal stimuli with simple yes no (Taylor CmP) Eyes Eye Remarks Unable to examine left eye, eyes closed ROM edema and bruising (Taylor Cm. ASSISTANT FRONT END MANAGER) Neck Neck Exam: Neck Supple (Taylor Cm. ASSISTANT FRONT END MANAGER) Pulmonary Resp Exam: Rhonchi, Decreased Bases, Diminished Breath Sounds, Poor Inspiratory Effort (Taylor Cm M. ASSISTANT FRONT END MANAGER) Gastrointestinal/Abdomen GI Exam: Soft, Bowel Sounds Present (soft) (Taylor Cm. ASSISTANT FRONT END MANAGER) Genitourinary Remarks Anaya catheter, orange clear urine (Taylor Cm ASSISTANT FRONT END MANAGER) Integumentary Skin Exam: Warm, Dry (Taylor Cm M. ASSISTANT FRONT END MANAGER) Extremeties Extremities Exam: No Edema (lower extremity) (Taylor Cm M. ASSISTANT FRONT END MANAGER) Neurologic Neuro Remarks Lethargic (Taylor CmP) Assessment/Plan Assessment/Plan Vital signs reviewed, patient is afebrile, blood pressure holding its normal trends, pulse normal range Labs reviewed, mild leukocytosis 11.2, anemia 11.1 no obvious bleeding noted, positive urine cultures, blood culture pending Subdural hematoma, status post fall with left for head laceration and periorbital bruising Appreciate Neurosurgery input , no surgical recommendation Patient continues with lethargy, will answer simple yes or no questions today, otherwise laying still Recurrent UTI, chronic indwelling catheter. Urine culture positive for Enterobacter cloacae, Klebsiella oxytoca ESBL positive ID input appreciated , antibiotic recommendations noted Note that Anaya catheter , changed emergency room. Altered mental status, likely multifactorial, no evidence of stroke. Continues to have lethargy, but is answering simple questions today which is a mild improvement Appreciate neurosurgery input Shunt pressure increased of 200 mm water Type 2 diabetes, uncontrolled Accu-Cheks before meals and at bedtime with insulin therapy Hypertension, hyperlipidemia both stable SCDs for DVT prophylaxis, avoid anticoagulation PT eval and OOB with assistance Fall precautions high risk for aspiration, audible rhonchi in upper airway's speech involved in his care palliative care had meeting with family yesterday, plan is to give patient 1 week for hopeful and possible improvement. CODE STATUS is now DNR/DNI, otherwise full aggressive care D/W RN D/W Dr. Greenwood, seen on his behalf No family present this a.m. (Taylor Cm) Assessment/Plan Patient seen and examined as above [id number] time spent with patient Labs reviewed Discussed with RN Plan of care discussed with ASSISTANT FRONT END MANAGER Appreciate consultants help Discussed with at bedside about further management. We'll continue antibiotics. As per patient is start drinking. Will wait for swallow eval tomorrow. May be able to discharge him to [facility] facility/ rehabilitation facility on antibiotic if he is start eating. Appreciate palliative care input. (Radhames Greenwood MD) Taylor Cm Nov 24, 2016 10:29 Radhames Greenwood MD Nov 24, 2016 15:36
--- NOTE | 2016-11-24 16:00 | HHI.HCPN ---
Reason for visit a. To assist with evaluation and management of symptoms including: confusion , debility, poor appetite b. To assist medical decision maker(s) with: better understanding of current medical conditions; weighing benefits/burdens of medical treatment options; making medical treatment decisions. . Subjective/Interval History Mr. Sims was seen and assessed in room 1521. Dietary was consulted yesterday 11/23/2016 poor nutritional intake. Patient's nurse reports patient was not tolerating oral nutrition earlier today. Speech therapy was again consulted for swallow evaluation. Per speech therapy, the patient was extremely lethargic. They attempted to awaken the patient with sternal rub and verbal cues, and the patient did awaken intermittently during the session. Patient had severe oral pharyngeal dysphasia; high risk of aspiration with all PO intake. Patient was more alert this afternoon. Patient was attempting to speak to his daughter on the telephone. He was oriented to person. Able to consistently follow commands, keeping his eyes closed throughout the visit. Patient denies pain or dyspnea, complains of a cough. Audible rhonchi are noted in upper airways. Patient's was present through a portion of the visit. Discussed the patient's current clinical condition, concerns for aspiration rest. Patient's expressing aggressive goals now the patient is more alert, stating "he'll come back again". Discussed with Dr. Greenwood and Taylor ELDER. Palliative care will continue to follow to provide ongoing support and education. . Advance Directives Living Will: Completed, but not made available Health Care Surrogate: Copy in medical record Advance Directive Specifics Date completed: 02/23/2007 . Health Care Surrogate(s): Patient admitted his , Radha Sims, as his healthcare surrogate decision maker. His son, Mihai Sims, is designated as the alternate health care decision maker. . Documented care wishes: Patient has completed a living will. Family will attempt to find the document and bring it to the family meeting planned for tomorrow 11/23/2016 . Objective Vital Signs Date Time Temp Pulse Resp B/P (MAP) Pulse Ox O2 Delivery O2 Flow Rate FiO2 11/24/16 12:08 97.6 86 20 176/81 (112) 95 11/24/16 08:08 99.1 115 20 162/81 (108) 96 11/24/16 07:00 103 11/24/16 04:00 97.0 88 22 120/80 (93) 93 11/24/16 00:04 98 11/24/16 00:00 99.0 89 21 125/88 (100) 94 11/23/16 20:45 99.2 97 21 129/91 (104) 94 11/23/16 16:03 98.5 90 16 165/74 (104) 99 Intake & Output 11/24/16 11/24/16 07:00 19:00 Intake Total 980 ml 1063 ml Output Total 950 ml 550 ml Balance 30 ml 513 ml Intake Oral 0 ml IV Total 980 ml 1063 ml Output Urine Total 950 ml 550 ml # Bowel Movements 0 1 Physical Exam CONSTITUTIONAL/GENERAL: This is a frail, elderly male in no apparent distress. TUBES/LINES/DRAINS: Anaya catheter, PIV 1, nasal cannula SKIN: No jaundice, rashes, or lesions. Ecchymoses on upper extremities and left eye. No wounds seen anteriorly. Skin temperature appropriate. Not diaphoretic. HEAD: Atraumatic. Normocephalic. EYES: Pupils equal and round and reactive. Patient keeps eyes closed most of the time ENT: Hearing grossly normal. Nose without bleeding or purulent drainage. NECK: Trachea midline. Supple, nontender. No palpable thyroid enlargement or nodularity. CARDIOVASCULAR: Regular rate and rhythm without murmurs, gallops, or rubs. No JVD. Peripheral pulses symmetric. RESPIRATORY/CHEST: Symmetric, unlabored respirations. Audible rhonchi and upper airway GASTROINTESTINAL: Abdomen soft, non-tender, nondistended. No guarding. Bowel sounds present. GENITOURINARY: Without palpable bladder distension. MUSCULOSKELETAL: Extremities without clubbing, cyanosis, or edema. No mottling or clubbing. LYMPHATICS: No palpable cervical or supraclavicular adenopathy. NEUROLOGICAL: Patient was more alert this afternoon. Patient was attempting to speak to his daughter on the telephone. He was oriented to person. Able to consistently follow commands, keeping his eyes closed throughout the visit. PSYCHIATRIC: No apparent hallucinations or other psychotic thought process. . Diagnostic Tests Laboratory Laboratory Tests Test 11/22/16 18:02 11/24/16 08:30 White Blood Count 11.3 TH/MM3 (4.0-11.0) 11.2 TH/MM3 (4.0-11.0) Red Blood Count 4.17 MIL/MM3 (4.50-5.90) 3.92 MIL/MM3 (4.50-5.90) Hemoglobin 11.6 GM/DL (13.0-17.0) 11.1 GM/DL (13.0-17.0) Hematocrit 35.7 % (39.0-51.0) 33.2 % (39.0-51.0) Mean Corpuscular Volume 85.6 FL (80.0-100.0) 84.7 FL (80.0-100.0) Mean Corpuscular Hemoglobin 27.8 PG (27.0-34.0) 28.2 PG (27.0-34.0) Mean Corpuscular Hemoglobin Concent 32.5 % (32.0-36.0) 33.3 % (32.0-36.0) Red Cell Distribution Width 15.0 % (11.6-17.2) 14.7 % (11.6-17.2) Platelet Count 283 TH/MM3 (150-450) 300 TH/MM3 (150-450) Mean Platelet Volume 8.2 FL (7.0-11.0) 8.4 FL (7.0-11.0) Neutrophils (%) (Auto) 81.0 % (16.0-70.0) 79.5 % (16.0-70.0) Lymphocytes (%) (Auto) 7.3 % (9.0-44.0) 8.1 % (9.0-44.0) Monocytes (%) (Auto) 8.9 % (0.0-8.0) 10.5 % (0.0-8.0) Eosinophils (%) (Auto) 2.4 % (0.0-4.0) 1.5 % (0.0-4.0) Basophils (%) (Auto) 0.4 % (0.0-2.0) 0.4 % (0.0-2.0) Neutrophils # (Auto) 9.2 TH/MM3 (1.8-7.7) 8.9 TH/MM3 (1.8-7.7) Lymphocytes # (Auto) 0.8 TH/MM3 (1.0-4.8) 0.9 TH/MM3 (1.0-4.8) Monocytes # (Auto) 1.0 TH/MM3 (0-0.9) 1.2 TH/MM3 (0-0.9) Eosinophils # (Auto) 0.3 TH/MM3 (0-0.4) 0.2 TH/MM3 (0-0.4) Basophils # (Auto) 0.0 TH/MM3 (0-0.2) 0.0 TH/MM3 (0-0.2) CBC Comment DIFF FINAL DIFF FINAL Differential Comment Blood Urea Nitrogen 19 MG/DL (7-18) Creatinine 0.83 MG/DL (0.60-1.30) Random Glucose 202 MG/DL (74-106) Calcium Level 8.4 MG/DL (8.5-10.1) Sodium Level 136 MEQ/L (136-145) Potassium Level 3.9 MEQ/L (3.5-5.1) Chloride Level 103 MEQ/L (98-107) Carbon Dioxide Level 25.4 MEQ/L (21.0-32.0) Anion Gap 8 MEQ/L (5-15) Estimat Glomerular Filtration Rate 89 ML/MIN (>89) . Result Diagram: 11/24/16 0830 11/22/16 180 Assessment and Plan Disease Oriented Problem List: (1) Altered mental status, unspecified (2) UTI (3) Facial laceration (4) Fracture of orbital wall (5) Chronic indwelling Anaya catheter (6) NPH (normal pressure hydrocephalus) (7) Diabetes (8) BPH (benign prostatic hyperplasia) (9) Diabetes mellitus type 2, uncontrolled (10) Hyperlipidemia (11) Hypertension (12) Acute kidney injury Symptom Scale: (1) Confusion (2) Debility (3) Decrease in appetite Pertinent Non-Medical Issues Psychosocial: Spoke with patient via telephone and was directed to call her son (Mihai) to coordinate any family meetings. Spoke with patient's son and [id number] (Mihai and Alba) via telephone for >1 hour. Discussed patient's current clinical condition, overall decline and prognosis. Questions answered to the best of my ability. Tentative family meeting scheduled for tomorrow 11/23/2016 at 1 PM. Spiritual: Mosque maxine Legal: Patient admitted his , Radha Sims, as his healthcare surrogate decision maker. His son, Mihai Sims, is designated as the alternate health care decision maker. Ethical issues impacting care: No known ethical issues impacting care at this time . Important Contacts Alla Sims, : [phone] or [phone] Mihai Sims, son: [phone] . Code Status: Full Code Plan * NO CODE-DNR/DNI * Decision-making: Patient admitted his , Radha Sims, as his healthcare surrogate decision maker. His son, Mihai Sims, is designated as the alternate health care decision maker. Patient's wishes to make all decisions in conjunction with her son, Mihai. * Goals remain aggressive at this time. * Discussed patient with Kyleigh Wood, patient's nurse, family caseworker (Monie), and Sudhakar from [facility]. * Symptom management: = Confusion: Patient with some baseline dementia, now with acute change in mental status. NPH with INSPECTOR WELDED PARTS shunt placement. Dr. Shah follows. Per Dr. Shah, patient has sustained a recent syncopal episode with secondary ischemic or hypoxic encephalopathy, possibly with further contribution of urosepsis/hypertension.He does have mild primarily frontoparietal subdural effusions noted on his most recent CT scan. A prior study will be located for comparison, but this is unlikely a cause of his present mental status changes. -11/23/16: Patient increasingly confused today. Family states Dr. Shah has recommended they allow the patient 1 week to see if he returns to his baseline mental status before for making any changes in medical treatment goals. That is what they plan to do. -11/24/16: Patient was more alert this afternoon. Patient was attempting to speak to his daughter on the telephone. He was oriented to person. Able to consistently follow commands, keeping his eyes closed throughout the visit. = Decreased appetite: Dietary was consulted yesterday 11/23/2016 poor nutritional intake. Patient's nurse reports patient was not tolerating oral nutrition earlier today. Speech therapy was again consulted for swallow evaluation. Per speech therapy, the patient was extremely lethargic. They attempted to awaken the patient with sternal rub and verbal cues, and the patient did awaken intermittently during the session. Patient had severe oral pharyngeal dysphasia; high risk of aspiration with all PO intake. = Debility: Significant deconditioning likely related to multiple co -morbid conditions in addition to recent acute decline; he has not improved after several months in an SNF with rehabilitation. * Discussed with patient's nurse, Taylor Adame * Palliative care will continue to follow this patient to establish trust, provide ongoing support and education. Attestation To help prompt me to consider important information that might be impacting today's encounter and assessment, information from prior notes written by myself or my colleagues may have been "brought forward" into today's note. My signature on this note, however, is an attestation that I personally performed the exam, history, and/or decision-making noted today, and, unless otherwise indicated, the interactions with patient, family, and staff as well as the review of records all occurred today. I also attest that the listed assessment and stated plan reflect my best clinical judgment today based on the combination of historical information, prior notes, and today's exam/ interactions. When time spent is documented, it refers only to time spent today by the signer, or if indicated, combined time spent today by collaborating physician/nurse practitioner. . Regla Mcconnell Nov 24, 2016 16:00
[2016-11-24] MEDS: ERTAPENEM INJ 1,000 MG in SODIUM CHLORIDE 0.9% INJ 100 ML IV SCH (16:24)
[2016-11-24] MEDS: POLYETHYLENE GLYCOL 17 GM PKG PO SCH (20:54)
--- NOTE | 2016-11-24 21:57 | HHI.NSPN ---
History Chief Complaint: subdural hemorrhage. Interval History Persistent decreased mental status for the past few days following a recent fall. Exam Results Vital Signs Date Time Temp Pulse Resp B/P (MAP) Pulse Ox O2 Delivery O2 Flow Rate FiO2 11/24/16 20:00 99.4 84 20 151/79 (103) 97 Intake and Output 11/24/16 11/24/16 11/25/16 08:00 16:00 00:00 Intake Total 980 ml 1063 ml Output Total 600 ml 550 ml 150 ml Balance 380 ml 513 ml -150 ml Physical Examination Resp: CTA bilaterally Heart: NSR no murmurs Abd: Soft positive bs Skin: left periorbital ecchymosis and left frontal laceration with steri- strips in place clean and dry. Neurologic: Moderate lethargy. Opens eyes [id number] to voice Answers simple questions appropriately with short phrases Mild brief eye opening. Does not focus her follow with his eyes Pupils 2 mm nonreactive Has good bilateral grasp to command. Moves lower extremities with moderate strength to command Lab, Micro, Other Results Laboratory Tests Test 11/24/16 08:30 White Blood Count 11.2 TH/MM3 Red Blood Count 3.92 MIL/MM3 Hemoglobin 11.1 GM/DL Hematocrit 33.2 % Mean Corpuscular Volume 84.7 FL Mean Corpuscular Hemoglobin 28.2 PG Mean Corpuscular Hemoglobin Concent 33.3 % Red Cell Distribution Width 14.7 % Platelet Count 300 TH/MM3 Mean Platelet Volume 8.4 FL Neutrophils (%) (Auto) 79.5 % Lymphocytes (%) (Auto) 8.1 % Monocytes (%) (Auto) 10.5 % Eosinophils (%) (Auto) 1.5 % Basophils (%) (Auto) 0.4 % Neutrophils # (Auto) 8.9 TH/MM3 Lymphocytes # (Auto) 0.9 TH/MM3 Monocytes # (Auto) 1.2 TH/MM3 Eosinophils # (Auto) 0.2 TH/MM3 Basophils # (Auto) 0.0 TH/MM3 CBC Comment DIFF FINAL Differential Comment Medical Decision Making Impression and Plan Impression: 1. 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 2. Persistent altered bowel status. The patient's states that he was awake and alert, ambulating independently with a walker prior to his fall. 3. Positive mild to moderate bilateral diffuse subdural effusion-hygroma. Plan: Continue observation. Palliative care following. He is a little more alert and conversant today. However overall prognosis for meaningful recovery still rather poor. He is stable for discharge to residential facility from a neurosurgery standpoint. Follow-up CT scan can be accomplished as an outpatient. Darrel Shah MD Nov 24, 2016 21:57
[2016-11-25] VITALS (11 sets, daily range): BP systolic 122–175; BP diastolic 67–91; PULSE 76–115; RESP 20; TEMP 97.6–100.4; O2SAT 92–98
[2016-11-25] MEDS: INSULIN ASPART SUPPLEMENTAL SCALE SQ SCH ×4 (06:15→21:00)
[2016-11-25] MEDS: DOCUSATE SODIUM 100 MG CAP PO SCH ×2 (07:41→21:00)
[2016-11-25] MEDS: SODIUM CHLOR 0.9% 1000 ML INJ 1,000 ML IV SCH ×2 (07:56→16:28)
[2016-11-25] MEDS: METOCLOPRAMIDE HCL 10 MG TAB PO SCH ×4 (07:57→16:14)
[2016-11-25] MEDS: VENLAFAXINE HCL XR 75 MG CAP PO SCH ×2 (07:57→09:00)
[2016-11-25] MEDS: PRAVASTATIN SOD 20 MG TAB PO SCH ×2 (07:57→09:00)
[2016-11-25] MEDS: LISINOPRIL 5 MG TAB PO SCH ×2 (07:57→09:00)
[2016-11-25] MEDS: MAGNESIUM OXIDE 400 MG TAB PO SCH ×2 (07:57→09:00)
[2016-11-25] MEDS: FAMOTIDINE 20 MG TAB PO SCH ×2 (07:57→09:00)
[2016-11-25] MEDS: METOPROLOL TARTRATE 25 MG TAB PO SCH ×3 (07:57→21:00)
--- NOTE | 2016-11-25 11:56 | HHI.PR ---
Subjective Remarks lethargic not eating no fever unable to obtain ROS Objective Objective Results - Vital Signs Date Time Temp Pulse Resp B/P (MAP) Pulse Ox O2 Delivery O2 Flow Rate FiO2 11/25/16 08:00 99.3 76 20 175/83 (113) 92 11/25/16 07:45 91 11/25/16 04:00 97.6 89 20 165/79 (107) 94 11/25/16 00:00 97.8 82 20 172/81 (111) 98 11/24/16 20:00 99.4 84 20 151/79 (103) 97 11/24/16 16:27 99.4 89 20 171/78 (109) 99 11/24/16 15:00 85 11/24/16 12:08 97.6 86 20 176/81 (112) 95 I/O 11/24/16 11/24/16 11/24/16 11/25/16 11/25/16 11/25/16 07:00 15:00 23:00 07:00 15:00 23:00 Intake Total 980 ml 1063 ml 1100 ml Output Total 600 ml 550 ml 150 ml 275 ml Balance 380 ml 513 ml -150 ml -275 ml 1100 ml Intake Oral 0 ml IV Total 980 ml 1063 ml 1100 ml Output Urine Total 600 ml 550 ml 150 ml 275 ml # Bowel Movements 1 1 Result Diagram: 11/24/16 0830 11/22/16 1802 Imaging Last Impressions Chest X-Ray 11/18/16737 Signed Impressions: Service Date/Time: October 07:52 - CONCLUSION: No acute cardiac pulmonary disease. Karsten Bledsoe Jr., MD Maxillofacial CT 11/18/16736 Signed Impressions: Service Date/Time: October 07:44 - CONCLUSION: 1. There is extraconal air within the left orbit with periorbital soft tissue swelling. I' m not clearly able to see a fracture on this study that is slightly limited by motion artifact but I suspect there is an orbital floor fracture without entrapment. Karsten Bledsoe Jr., MD Head CT 11/18/16736 Signed Impressions: Service Date/Time: October 07:44 - CONCLUSION: Thin parafalcine subdural hematoma Rick Ellington MD Cervical Spine CT 11/18/16736 Signed Impressions: Service Date/Time: October 07:44 - CONCLUSION: 1. No fracture or dislocation. 2. Degenerative changes. 3. Calcified plaque involving the carotid arteries. Karsten Bledsoe Jr., MD Other Results Date/Time Source Procedure Growth Status 11/18/16 16:26 Blood Other Aerobic Blood Culture - Final NO GROWTH IN 5 DAYS Complete 11/18/16 16:26 Blood Other Anaerobic Blood Culture - Final NO GROWTH IN 5 DAYS Complete 11/18/16 09:27 Urine Catheterized Urine Urine Culture - Final Klebsiella Oxytoca Esbl Pos Complete ROS General: Other (unable to obtain ROS ) Physical Exam Physical Exam GENERAL: This is a frail, thin built elderly male. SKIN: No rashes, ecchymoses or lesions. Cool and dry. HEAD: Left forehead with laceration, Steri-Strips in place. Left periorbital bruising. EYES: Pupils equal round and reactive. Extraocular motions intact. No scleral icterus. No injection or drainage. ENT: Nose without bleeding, purulent drainage or septal hematoma. Throat without erythema, tonsillar hypertrophy or exudate. Uvula midline. Airway patent. NECK: Trachea midline. No JVD or lymphadenopathy. Supple, nontender, no meningeal signs. CARDIOVASCULAR: S1 and S2, sinus tachycardia. No rubs, no gallops, no murmurs. RESPIRATORY: Poor inspiratory effort. GASTROINTESTINAL: Abdomen soft, non-tender, nondistended. No hepato-splenomegaly , or palpable masses. No guarding. : large inguinal hernia MUSCULOSKELETAL: Extremities without clubbing, cyanosis, or edema. No joint tenderness, effusion, or edema noted. No calf tenderness. Negative Homans sign bilaterally. NEUROLOGICAL: lethargic Urinary Catheter: Yes Assessment to: Continue Anaya insert reason: Obstruction/Retention Vascular Central Line Catheter: Yes Line: PICC A/P Diagnosis: (1) Fall ICD Codes: W19.XXXA - Unspecified fall, initial encounter Status: Acute (2) Facial laceration ICD Codes: S01.81XA - Laceration without foreign body of other part of head, initial encounter Status: Acute (3) Subdural hematoma, acute ICD Codes: I62.01 - Nontraumatic acute subdural hemorrhage Status: Acute (4) Fracture of orbital wall ICD Codes: S02.80XA - Fracture of other specified skull and facial bones, unspecified side, initial encounter for closed fracture Status: Acute (5) Tachycardia ICD Codes: R00.0 - Tachycardia, unspecified Status: Acute (6) Frequent falls ICD Codes: R29.6 - Recurrent falls Status: Chronic (7) Ataxia ICD Codes: R27.0 - Ataxia Status: Acute (8) NPH (normal pressure hydrocephalus) ICD Codes: G91.2 - Normal pressure hydrocephalus Status: Chronic (9) Diabetes ICD Codes: E11.9 - Diabetes mellitus Status: Chronic (10) BPH (benign prostatic hyperplasia) ICD Codes: N40.0 - Benign prostatic hyperplasia Status: Chronic (11) Peripheral neuropathy ICD Codes: G62.9 - Peripheral neuropathy Status: Chronic (12) Hyperlipidemia ICD Codes: E78.5 - Hyperlipidemia Status: Chronic (13) Hypertension ICD Codes: I10 - Hypertension Status: Chronic (14) S/P DOG GROOMER shunt ICD Codes: Z98.2 - Status post ventriculoperitoneal shunt Status: Resolved (15) Chronic indwelling Anaya catheter ICD Codes: Z92.89 - Personal history of other medical treatment Status: Chronic (16) Urinary tract infection ICD Codes: N39.0 - Urinary tract infection, site not specified Status: Acute (17) Impaired cognition ICD Codes: R41.89 - Impaired cognition Status: Chronic Assessment and Plan 81-year-old elderly male with history of NPH has DOG GROOMER shunt, recurrent falls, dementia, peripheral neuropathy, physical debility, recurrent UTIs and sepsis. Subdural hematoma, status post fall Left forehead laceration Left orbital floor fracture without entrapment per CT finding -Neurosurgery input appreciated, non surgical management recommended -Continue neuro checks -Fall precautions -Avoid any anticoagulation -repeat CT head, stable -pt. more lethargic, not eating. -appreciate Dr. Shah's input-recommended adjusting DOG GROOMER shunt, to 200. Can have F/ U CT head as OP Recurrent UTI, chronic indwelling catheter. Urine culture positive for Enterobacter cloacae, Klebsiella oxytoca ESBL positive. -Continue with ertapenem -ID input appreciated -Anaya catheter has been changed in the emergency room -UC positive for Klebsiella oxytoca ESBL positive. -Blood cultures negative so far -ID recommends 2 weeks of Ertapenem/OK for PICC if remains afebrile and blood clx are negative @ alt least 72 hrs -PICC line Tachycardia, patient on beta blockers -Continuous cardiac telemetry monitoring -continue BB, HR better Altered mental status, likely multifactorial, no evidence of stroke. NPH with DOG GROOMER shunt Continue with neuro checks -neurosurgery following -pressure increased to 200 Type 2 diabetes Accu-Cheks before meals and at bedtime with insulin therapy Hypertension, stable -continue home medications Hyperlipidemia Continue with home medications SCDs for DVT prophylaxis, avoid anticoagulation PT eval and OOB with assistance Fall precautions Keep NPO, high risk for aspiration duonebs QID poor prognosis Palliative care following goals remain aggressive except for DNR wants to give him chance to eat/drink D/W RN D/W Dr. Greenwood This patient was seen by myself and Dr. Greenwood, this note is written on his behalf Problem Qualifiers (1) Fall: Qualified Codes: W19.XXXA - Unspecified fall, initial encounter (2) Facial laceration: Qualified Codes: S01.81XA - Laceration without foreign body of other part of head, initial encounter (3) Fracture of orbital wall: Qualified Codes: S02.80XA - Fracture of other specified skull and facial bones , unspecified side, initial encounter for closed fracture (4) Diabetes: Qualified Codes: E11.8 - Type 2 diabetes mellitus with unspecified complications (5) Peripheral neuropathy: Qualified Codes: G62.9 - Polyneuropathy, unspecified (6) Hyperlipidemia: Qualified Codes: E78.5 - Hyperlipidemia, unspecified (7) Hypertension: Qualified Codes: I10 - Essential (primary) hypertension (8) Urinary tract infection: Qualified Codes: T83.511D - Infection and inflammatory reaction due to indwelling urethral catheter, subsequent encounter; N39.0 - Urinary tract infection, site not specified Joan Martinez Nov 25, 2016 11:56
[2016-11-25] MEDS: RESP: ALBUTEROL 2.5 MG/IPRATROPIUM 0.5 MG NEB (SCH) NEB ×3 (12:00→19:57)
[2016-11-25] MEDS: ERTAPENEM INJ 1,000 MG in SODIUM CHLORIDE 0.9% INJ 100 ML IV SCH (16:28)
[2016-11-25] MEDS: POLYETHYLENE GLYCOL 17 GM PKG PO SCH (21:00)
[2016-11-25] MEDS ORDERED: ACETAMINOPHEN 650 MG SUPP RECTAL PRN (21:45)
[2016-11-26] VITALS (20 sets, daily range): BP systolic 115–160; BP diastolic 63–85; PULSE 86–128; RESP 11–31; TEMP 97.1–100.2; O2SAT 94–100
[2016-11-26] MEDS: SODIUM CHLOR 0.9% 1000 ML INJ 1,000 ML IV SCH ×2 (03:08→16:28)
[2016-11-26 03:17] LABS: BLOOD GAS BASE EXCESS -2.6 mmol/L (-2-2); BLOOD GAS CARBOXYHEMOGLOBIN 1.2 % (0-4); BLOOD GAS HCO3 21 mmol/L (22-26); BLOOD GAS METHEMOGLOBIN 0.9 % (0-2); BLOOD GAS O2 HGB SATURATION 93 % (90-100); BLOOD GAS OXYGEN CONTENT 16.1 Vol % (12.0-20.0); BLOOD GAS PCO2 32 mmHg (38-42); BLOOD GAS PO2 80 mmHg (61-120); BLOOD GAS TOTAL HGB 12.3 G/DL (12.0-16.0); CRITICAL VALUE NO; LITER FLOW 3 L/M; OXYGEN DEVICE NASAL CANNULA; TEMP CORR TO 98.6
[2016-11-26] MEDS ORDERED: LORazepam 2 MG/ML VIAL ONE (03:17)
[2016-11-26 03:18] LABS: DRAW SITE LT RADIAL; NUMBER OF ARTERIAL PUNCTURES 1; STAT YES; ULNAR PULSE PRESENT
--- NOTE | 2016-11-26 03:18 | HHI.PR ---
Subjective Remarks stroke alert called pt has been inc lethargic for few days and had what looked like by nurse a witnessed sz tonight with head deviated to left and shaking and stiffened then slowly better waking up now not holding lue up as well as right but can move it recent sdh and shunt hx'' ct cta ordered and labs and keppra started mri and eeg ordered txfer icu i dw nurse Objective Vital Signs Date Time Temp Pulse Resp B/P (MAP) Pulse Ox O2 Delivery O2 Flow Rate FiO2 11/26/16 00:00 97.1 106 22 127/71 (89) 94 11/25/16 21:00 115 11/25/16 20:00 100.4 109 20 122/67 (85) 93 11/25/16 19:57 95 Nasal Cannula 3.00 11/25/16 16:00 99.6 112 20 158/81 (106) 95 11/25/16 15:00 98 11/25/16 14:04 92 Nasal Cannula 3.00 11/25/16 12:00 100.2 92 20 164/91 (115) 92 11/25/16 08:00 99.3 76 20 175/83 (113) 92 11/25/16 07:45 91 11/25/16 04:00 97.6 89 20 165/79 (107) 94 I/O 11/25/16 11/25/16 11/25/16 11/26/16 11/26/16 11/26/16 07:00 15:00 23:00 07:00 15:00 23:00 Intake Total 1100 ml Output Total 275 ml 500 ml Balance -275 ml 1100 ml -500 ml IV Total 1100 ml Output Urine Total 275 ml 500 ml # Bowel Movements 0 Result Diagram: 11/24/16 0830 11/22/16 180 Aston Nichols MD Nov 26, 2016 03:18
[2016-11-26] MEDS ORDERED: LORazepam 2 MG/ML VIAL IV PUSH ONE (03:30)
[2016-11-26] MEDS ORDERED: LORazepam 2 MG/ML VIAL IV PUSH PRN (03:30)
[2016-11-26 03:38] LABS: I-STAT POTASSIUM 3.4 MMOL/L (3.5-4.9)
[2016-11-26 03:40] LABS: BASOPHIL # 0.1 TH/MM3 (0-0.2); BASOPHIL % 0.4 % (0.0-2.0); EOSINOPHIL % 0.1 % (0.0-4.0); HEMATOCRIT 38.6 % (39.0-51.0); HEMO FLAGS DIFF FINAL; LYMPH % 6.6 % (9.0-44.0); LYMPHOCYTE # 1.5 TH/MM3 (1.0-4.8); MEAN CELL VOLUME 84.9 FL (80.0-100.0); MEAN CORPUSCULAR HEMOGLOBIN 27.5 PG (27.0-34.0); MEAN CORPUSCULAR HGB CONC 32.4 % (32.0-36.0); MONO % 9.2 % (0.0-8.0); NEUT % 83.7 % (16.0-70.0); PLATELET COUNT 412 TH/MM3 (150-450); RED BLOOD COUNT 4.55 MIL/MM3 (4.50-5.90); RED CELL DISTRIBUTION WIDTH 15.1 % (11.6-17.2); WHITE BLOOD COUNT 22.7 TH/MM3 (4.0-11.0)
--- NOTE | 2016-11-26 03:51 | RADRPT ---
EXAM DATE/TIME: 11/26/2016 03:27 [facility] COMPARISON: CT BRAIN W/O CONTRAST, November 19, 2016, 9:19. INDICATIONS : Stroke alert. Left side weakness. Seizure. RADIATION DOSE: 33.33 CTDIvol (mGy) This report was called by personally to Dr. Spaulding at 0345 MEDICAL HISTORY : Dementia. Hypertension. Seizures.Hydrocephalus. SURGICAL HISTORY : DEGREASER OPERATOR Shunt. ENCOUNTER: Initial ACUITY: 1 day PAIN SCALE: Non-responsive LOCATION: cranial TECHNIQUE: Multiple contiguous axial images were obtained of the head. Using automated exposure control and adj ustment of the mA and/or kV according to patient size, radiation dose was kept as low as reasonably a chievable to obtain optimal diagnostic quality images. DICOM format image data is available electro nically for review and comparison. FINDINGS: There are bilateral subdural hygromas that are stable in size. However, there is small focal increase d attenuation seen posteriorly in the left consistent with intercurrent hemorrhage. There is a stable right DEGREASER OPERATOR shunt catheter in place. Ventricles are stable in size with continued small amount of intra ventricular blood products. Interval resolution of small amount of acute falcine blood products. Sagastume -white matter differentiation is maintained. Brainstem and cerebellum are intact. Remainder of exam i s unchanged. CONCLUSION: 1. Bilateral subdural hygromas are stable in size although there is small focal region of intercurren t hemorrhage on the left posteriorly. 2. Stable right DEGREASER OPERATOR shunt catheter with stable ventricular size and small amount of intraventricular b lood products. 3. Otherwise, no significant interval change. Selvin Bernstein MD on November 26, 2016 at 3:39 Board Certified Radiologist. This report was verified electronically.
--- NOTE | 2016-11-26 03:55 | RADRPT ---
EXAM DATE/TIME: 11/26/2016 03:33 [facility] COMPARISON: No previous studies available for comparison. INDICATIONS : Stroke alert. Left side weakness. Seizure. IV CONTRAST: 90 cc Omnipaque 350 (iohexol) IV ; Cumulative dose for multiple exams. RADIATION DOSE: 27.94 CTDIvol (mGy) ; Combined studies MEDICAL HISTORY : Dementia. Seizures. Hypertension.Hydrocephalus. 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 ENCOUNTER: Initial ACUITY: 1 day PAIN SCALE: Non-responsive LOCATION: cranial TECHNIQUE: Volumetric scanning was performed using a multi-row detector CT scanner. The data was post processed with a variety of visualization algorithms including full volume maximum intensity projection, multi -planar sliding thin slab reformation, curved planar reformation, and surface rendering techniques. Using automated exposure control and adjustment of the mA and/or kV according to patient size, radiat ion dose was kept as low as reasonably achievable to obtain optimal diagnostic quality images. DICO M format image data is available electronically for review and comparison. FINDINGS: Anterior circulation: Intracranial internal carotid arteries are patent with flow extending to the anterior and posterior c erebral arteries bilaterally. There is a hypoplastic left A1 segment. There is no evidence for aneur ysm, vessel truncation or stenosis, and no evidence for vascular malformation. Posterior circulation: Slightly asymmetric distal vertebral arteries with a small caliber right vertebral artery. Flow exten ds to the basilar artery and posterior cerebral arteries. There is no evidence for aneurysm, vessel t runcation or stenosis, and no evidence for vascular malformation. CONCLUSION: 1. Unremarkable CTA examination without evidence for intracranial large vessel occlusion or stenosis. Selvin Bernstein MD on November 26, 2016 at 3:50 Board Certified Radiologist. This report was verified electronically.
[2016-11-26 03:58] LABS: POTASSIUM 3.5 MEQ/L (3.5-5.1)
[2016-11-26] MEDS: levETIRAcetam 1000 MG INJ 100 ML IV SCH ×2 (03:59→16:57)
[2016-11-26] MEDS ORDERED: IOHEXOL 350 MG/ML 10 ML VIAL (for RAD DIAG) IVCONTRAST ONE (04:15)
[2016-11-26] MEDS ORDERED: METOPROLOL TARTRATE 5 MG/5 ML VIAL IV PUSH ONE (04:45)
--- NOTE | 2016-11-26 04:46 | RADRPT ---
EXAM DATE/TIME: 11/26/2016 03:33 [facility] COMPARISON: No previous studies available for comparison. INDICATIONS : Stroke alert. Left side weakness. Seizure. IV CONTRAST: 90 cc Omnipaque 350 (iohexol) IV ; Cumulative dose for multiple exams. RADIATION DOSE: 27.94 CTDIvol (mGy) ; Combined studies MEDICAL HISTORY : Dementia. Seizures. Hypertension.Hydrocephalus. 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 ENCOUNTER: Initial ACUITY: 1 day PAIN SCALE: Non-responsive LOCATION: neck Elevated flow velocities and ICA/CCA ratios have been found to correlate with increased degrees of vessel stenosis, calculated as percentage of diameter relative to a normal segment of distal ICA/CCA. TECHNIQUE: Volumetric scanning was performed using a multirow detector CT scanner. The data was post processed with a variety of visualization algorithms including full-volume maximum intensity projection, multip lanar sliding thin-slab reformation, curved-planar reformation, and surface-rendering techniques. Us ing automated exposure control and adjustment of the mA and/or kV according to patient size, radiatio n dose was kept as low as reasonably achievable to obtain optimal diagnostic quality images. DICOM f ormat image data is available electronically for review and comparison. FINDINGS: AORTIC ARCH: There is a three-vessel origin of the great vessels from the aorta. No evidence of ostial narrowing. RIGHT CAROTID: The common carotid artery is intact. The carotid bulb has a normal configuration without ulceration o r narrowing. Calcified plaque in the origin of the internal carotid artery with resultant approximate 45-50% stenosis. Internal carotid artery is otherwise patent to the skull base. The external caroti d artery is intact. LEFT CAROTID: The common carotid artery is intact. The carotid bulb has a normal configuration without ulceration or narrowing. Calcified plaque in the origin of the internal carotid artery with resultant approxima te 20% stenosis. The internal carotid artery is otherwise patent to the skull base. The external car otid artery is intact. VERTEBRALS: The vertebral arteries have a symmetric diameter. No stenotic lesions are seen. Miscellaneous: Large 2.2 x 1.0 cm hypodense right thyroid nodule. Small subcentimeter left thyroid nodule. Moderate to large left-sided pleural effusion. The no significant cervical adenopathy or mass. CONCLUSION: 1. Calcified plaque in the origin of the internal carotid arteries bilaterally with resultant 45-50% stenosis on the right and 20% stenosis on the left. 2. Patent bilateral vertebral arteries. 3. Moderate to large left pleural effusion. 4. 2.2 cm right thyroid nodule. Selvin Bernstein MD on November 26, 2016 at 4:38 Board Certified Radiologist. This report was verified electronically.
--- NOTE | 2016-11-26 05:00 | HHI.FPPN ---
Addendum to progress note ADDENDUM Reason for addendum: Additonal documentation Additional information Residents responded to [facility] at ~0315 11/26: Per nursing staff, patient with history of fall/subdural hematoma had witnessed seizure activity and altered mental status. Prior to resident arrival, Dr. Nichols was called and had placed orders for IV Keppra, stat head imaging, labs , and transfer to intensive care. Patient had not yet received Keppra. Per further discussion with nursing staff, patient had been febrile earlier tonight. ABG prior to resident arrival: PH 7.43, bicarbonate 21, PCO2 32, pO2 80 On resident arrival, patient was witnessed shaking the right side of his body in pattern suggestive of seizure. Patient would not respond to verbal command. O: Vitals: HR in low 100s, normotensive, normal respiratory rate, normal O2 sat ( [place] 0350 after [facility]: T 100.1, HR 128, RR 20, BP 133/78, O2 sat 95%) Gen: Initially seizing Respiratory: Equal breath sounds bilaterally Cardiovascular: tachycardic rhythm; no murmurs appreciated Neuro: Pupils small; I did not see much change in response to light. Patient would respond to painful stimuli; seemed like withdrawal response. Patient not responsive to command. Seizing on L side of body seen for <1 min but but might have started prior to resident arrival A/P: Seizure -I verbally ordered 1mg Ativan for seizure prior and talked with Hospitalist; we changed to 2mg Ativan once and with PRN for seizures; this was administered prior to transport to CT -Discussed with Dr. Nichols (to notify him of seizure) and Ativan administration; recommended that previously ordered Keppra be given and to call him stat with additional seizures; nursing staff notified -Further management per Dr. Nichols and hospitalist team Seen with Denver Beasley MD, R3 Nov 26, 2016 05:00
[2016-11-26] MEDS: INSULIN ASPART SUPPLEMENTAL SCALE SQ SCH ×4 (06:10→20:54)
[2016-11-26] MEDS: RESP: ALBUTEROL 2.5 MG/IPRATROPIUM 0.5 MG NEB (SCH) NEB ×4 (08:31→20:27)
--- NOTE | 2016-11-26 08:51 | PD.CONS ---
History of Present Illness Service Neurology Consult Requested By medical/hospital Reason for Consult stroke alert Primary Care Physician Unknown History of Present Illness 81-year-old elderly male with significant pmhx. admitted since 11/18/[address] brain showed subdural hematoma. hx of nph with vp outcomes shunt, recurrent infections. overnight apparently began shaking, [facility] called. medical social consultant noted pt to have rt sided sz activity. started on iv keppra. followed by nsx. has been noted to have progressive mental decline over past several days. was given 2mg ativan overnight. has been residing at rehabilitation facility. Physical Activity has declined, was using a wheelchair/walker for mobility. seen by palliative care. 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 Dr. Bledsoe (urology) was consulted for possible suprapubic catheter placement due to BPH w urinary retention. Admitted to [facility] 07/06 to 07/09 for Sepsis, found with MRSA in urine Chronic indwelling catheter History of ESBL Large inguinal hernia Past Surgical History Appendectomy ~ 50 years ago HERNIA REPAIR. Indwelling catheter placed 09/20/15 Reported Medications Reported Meds & Active Scripts Active Reported Tylenol (Acetaminophen) 325 Mg Tab 650 Mg PO Q4H PRN Metoprolol Tartrate 25 Mg Tab 6.25 Mg PO BID Miralax (Polyethylene Glycol 3350) 17 Gm Powd.pack 1 Pack PO HS Colace (Docusate Sodium) 100 Mg Capsule 1 Cap PO BID Magnesium Oxide 400 Mg Tab 400 Mg PO DAILY Reglan (Metoclopramide HCl) 10 Mg Tab 5 Mg PO TIDAC Phenergan Supp (Promethazine HCl) 25 Mg Supp 25 Mg RECTAL Q6H PRN Zofran Odt (Ondansetron Odt) 4 Mg Tab 4 Mg SL Q12HR PRN Glimepiride 1 Mg Tab 1 Mg PO DAILY Take with breakfast or first main meal Venlafaxine ER 24 HR (Venlafaxine HCl) 75 Mg Tab 150 Mg PO DAILY Lisinopril 2.5 Mg Tab 2.5 Mg PO DAILY Zocor (Simvastatin) 10 Mg Tab 10 Mg PO DAILY Zantac (Ranitidine HCl) 150 Mg Tab 150 Mg PO DAILY Allergies: Coded Allergies: *MDRO Multi-Drug Resistant Organism (Verified Adverse Reaction, Unknown, ) 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 Social History Quit both smoking and drinking years ago (1960s) No illicit drug use. Is , has grown children. 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 Active Ordered Medications Current Medications Medications (Trade) Dose Ordered Sig/Robert Route Start Time Stop Time Status Last Admin (NS Flush) 2 ml UNSCH PRN IVF 11/18/16 07:45 (Tylenol) 650 mg Q4H PRN PO 11/18/16 11:00 11/20/16 20:55 (Colace) 100 mg BID PO 11/18/16 21:00 11/24/16 09:09 (Mag-Ox) 400 mg DAILY PO 11/19/16 09:00 11/24/16 09:08 (Reglan) 5 mg TIDAC PO 11/18/16 12:00 11/24/16 11:02 (Miralax) 17 gm HS PO 11/18/16 21:00 11/22/16 20:36 (Effexor Xr) 150 mg DAILY PO 11/19/16 09:00 11/24/16 09:09 (Prinivil) 2.5 mg DAILY PO 11/19/16 09:00 11/24/16 09:09 (Pepcid) 20 mg DAILY PO 11/19/16 09:00 11/24/16 09:08 (Pravachol) 20 mg DAILY PO 11/19/16 09:00 11/24/16 09:00 (Lopressor) 25 mg Q12HR PO 11/18/16 21:00 11/24/16 20:53 (Zofran Inj) 4 mg Q8HR PRN IV PUSH 11/18/16 11:15 (D50w (Vial) Inj) 50 ml UNSCH PRN IV 11/18/16 11:15 (Glucagon Inj) 1 mg UNSCH PRN OTHER 11/18/16 11:15 (NovoLOG SUPPLEMENTAL SCALE) 1 ACHS SLIDING SCALE SQ 11/18/16 16:00 11/22/16 21:41 (Pill Splitter) 1 ea UNSCH PRN OTHER 11/18/16 11:30 Ertapenem 1000 mg/ Sodium Chloride 100 ml @ 200 mls/hr Q24H IV 11/20/16 17:00 11/25/16 16:28 (Vasotec Inj) 1.25 mg Q8H PRN IV PUSH 11/23/16 14:45 (Duoneb Neb) 1 ampule QID NEB NEB 11/25/16 12:00 11/26/16 08:31 (Tylenol Supp) 650 mg Q4H PRN RECTAL 11/25/16 21:45 11/25/16 22:00 Sodium Chloride 1,000 ml @ 75 mls/hr [id number] IV 11/26/16 03:08 11/26/16 03:08 Levetriacetam 100 ml @ 400 mls/hr Q12H IV 11/26/16 04:00 11/26/16 03:59 Exam I&O / VS Vital Signs Date Time Temp Pulse Resp B/P (MAP) Pulse Ox O2 Delivery O2 Flow Rate FiO2 11/26/16 06:00 101 11/26/16 05:28 102 11/26/16 05:27 100.2 102 22 129/82 (98) 97 11/26/16 03:50 100.1 128 20 133/78 (96) 95 11/26/16 03:00 98.8 122 22 160/85 (110) 100 11/26/16 00:00 97.1 106 22 127/71 (89) 94 11/25/16 21:00 115 11/25/16 20:00 100.4 109 20 122/67 (85) 93 11/25/16 19:57 95 Nasal Cannula 3.00 11/25/16 16:00 99.6 112 20 158/81 (106) 95 11/25/16 15:00 98 11/25/16 14:04 92 Nasal Cannula 3.00 11/25/16 12:00 100.2 92 20 164/91 (115 92 Respiratory: Non-labored respirations Exam Comments stupor, non-verbal, not following, open mouth breathing, ou 3mm sluggishly reactive, no gaze deviation, no sz activity, left ue extensor, rt ue flexes, withdraws cory le, no clonus, planterflexor Review/Management Diagnosis/Plan: (1) Seizure cerebral ICD Codes: I67.89 - Other cerebrovascular disease Status: Acute Plan: appears to have new-onset sz likely 2/2 sdh recs eeg iv keppra and iv cerebryx mri brain abg palliative care following d/w rn code status (2) Acute encephalopathy ICD Codes: G93.40 - Encephalopathy, unspecified Status: Acute (3) Subdural hematoma, acute ICD Codes: I62.01 - Nontraumatic acute subdural hemorrhage Status: Acute (4) Nontraumatic brain injury ICD Codes: S06.890A - Other specified intracranial injury without loss of consciousness, initial encounter Status: Acute (5) NPH (normal pressure hydrocephalus) ICD Codes: G91.2 - Normal pressure hydrocephalus Status: Chronic (6) Frequent falls ICD Codes: R29.6 - Recurrent falls Status: Chronic Kory Morgan MD Nov 26, 2016 08:50
[2016-11-26] MEDS: DOCUSATE SODIUM 100 MG CAP PO SCH ×2 (09:00→20:53)
[2016-11-26] MEDS: VENLAFAXINE HCL XR 75 MG CAP PO SCH (09:00)
[2016-11-26] MEDS: PRAVASTATIN SOD 20 MG TAB PO SCH (09:00)
[2016-11-26] MEDS: FAMOTIDINE 20 MG TAB PO SCH (09:00)
[2016-11-26 09:04] LABS: BLOOD GAS BASE EXCESS 0.4 mmol/L (-2-2); BLOOD GAS CARBOXYHEMOGLOBIN 1.5 % (0-4); BLOOD GAS HCO3 24 mmol/L (22-26); BLOOD GAS METHEMOGLOBIN 1.2 % (0-2); BLOOD GAS O2 HGB SATURATION 93 % (90-100); BLOOD GAS OXYGEN CONTENT 15.2 Vol % (12.0-20.0); BLOOD GAS PCO2 38 mmHg (38-42); BLOOD GAS PO2 80 mmHg (61-120); BLOOD GAS TOTAL HGB 11.6 G/DL (12.0-16.0); TEMP CORR TO 98.6
[2016-11-26 09:05] LABS: CRITICAL VALUE NO; DRAW SITE RT RADIAL; LITER FLOW 2 L/M; NUMBER OF ARTERIAL PUNCTURES 1; OXYGEN DEVICE NASAL CANNULA; STAT NO; ULNAR PULSE PRESENT
[2016-11-26] MEDS ORDERED: FOSPHENYTOIN INJ 1,000 MGPE in SODIUM CHLORIDE 0.9% INJ 50 ML IV ONE (10:00)
[2016-11-26] MEDS: MAGNESIUM OXIDE 400 MG TAB PO SCH (10:32)
[2016-11-26] MEDS: LISINOPRIL 5 MG TAB PO SCH (10:32)
[2016-11-26] MEDS: METOCLOPRAMIDE HCL 10 MG TAB PO SCH ×3 (10:32→17:00)
[2016-11-26] MEDS: METOPROLOL TARTRATE 25 MG TAB PO SCH ×2 (10:33→20:54)
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
--- NOTE | 2016-11-26 12:37 | HHI.PR ---
Subjective Remarks km called, apparently had seizure tx to ICU was noted febrile, tachy evaluated per neurology, started on Keppra currently obtunded, snoring like respirations withdraws to pain but not opening eyes tachycardic unable to obtain ROS Objective Objective Results - Vital Signs Date Time Temp Pulse Resp B/P (MAP) Pulse Ox O2 Delivery O2 Flow Rate FiO2 11/26/16 12:00 99.2 11/26/16 12:00 86 17 116/66 (83) 99 11/26/16 11:00 101 29 131/71 (91) 99 11/26/16 10:00 123 24 143/83 (103) 98 11/26/16 08:31 95 Nasal Cannula 2.00 11/26/16 06:00 101 11/26/16 05:28 102 11/26/16 05:27 100.2 102 22 129/82 (98) 97 11/26/16 03:50 100.1 128 20 133/78 (96) 95 11/26/16 03:00 98.8 122 22 160/85 (110) 100 11/26/16 00:00 97.1 106 22 127/71 (89) 94 11/25/16 21:00 115 11/25/16 20:00 100.4 109 20 122/67 (85) 93 11/25/16 19:57 95 Nasal Cannula 3.00 11/25/16 16:00 99.6 112 20 158/81 (106) 95 11/25/16 15:00 98 11/25/16 14:04 92 Nasal Cannula 3.00 I/O 11/25/16 11/25/16 11/25/16 11/26/16 11/26/16 11/26/16 07:00 15:00 23:00 07:00 15:00 23:00 Intake Total 1100 ml 460 ml Output Total 275 ml 500 ml 400 ml Balance -275 ml 1100 ml -500 ml -400 ml 460 ml IV Total 1100 ml 460 ml Output Urine Total 275 ml 500 ml 400 ml # Bowel Movements 0 Result Diagram: 11/26/1631211/26/16312 Imaging Last Impressions Chest X-Ray 11/18/16 0738 Signed Impressions: Service Date/Time: October 07:52 - CONCLUSION: No acute cardiac pulmonary disease. Karsten Bledsoe Jr., MD Maxillofacial CT 11/18/1637 Signed Impressions: Service Date/Time: October 07:44 - CONCLUSION: 1. There is extraconal air within the left orbit with periorbital soft tissue swelling. I' m not clearly able to see a fracture on this study that is slightly limited by motion artifact but I suspect there is an orbital floor fracture without entrapment. Karsten Bledsoe Jr., MD Head CT 11/18/16736 Signed Impressions: Service Date/Time: October 07:44 - CONCLUSION: Thin parafalcine subdural hematoma Rick Ellington MD Cervical Spine CT 11/18/16736 Signed Impressions: Service Date/Time: October 07:44 - CONCLUSION: 1. No fracture or dislocation. 2. Degenerative changes. 3. Calcified plaque involving the carotid arteries. Karsten Bledsoe Jr., MD Other Results Laboratory Tests Test 11/26/16 02:55 11/26/16 03:13 11/26/16 04:00 11/26/16 08:55 Blood Gas Puncture Site LT RADIAL RT RADIAL Blood Gas Patient Temperature 98.6 98.6 Blood Gas HCO3 21 24 Blood Gas Base Excess -2.6 0.4 Blood Gas Oxygen Saturation 93 93 Arterial Blood pH 7.43 7.42 Arterial Blood Partial Pressure CO2 32 38 Arterial Blood Partial Pressure O2 80 80 Arterial Blood Oxygen Content 16.1 15.2 Arterial Blood Carboxyhemoglobin 1.2 1.5 Arterial Blood Methemoglobin 0.9 1.2 Blood Gas Hemoglobin 12.3 11.6 Oxygen Delivery Device NASAL CANNULA NASAL CANNULA Blood Gas Liter Flow 3 2 White Blood Count 22.7 Red Blood Count 4.55 Hemoglobin 12.5 Bedside Hemoglobin 12.6 Hematocrit 38.6 Bedside Hematocrit 37.0 Mean Corpuscular Volume 84.9 Mean Corpuscular Hemoglobin 27.5 Mean Corpuscular Hemoglobin Concent 32.4 Red Cell Distribution Width 15.1 Platelet Count 412 Mean Platelet Volume 7.8 Neutrophils (%) (Auto) 83.7 Lymphocytes (%) (Auto) 6.6 Monocytes (%) (Auto) 9.2 Eosinophils (%) (Auto) 0.1 Basophils (%) (Auto) 0.4 Neutrophils # (Auto) 19.0 Lymphocytes # (Auto) 1.5 Monocytes # (Auto) 2.1 Eosinophils # (Auto) 0.0 Basophils # (Auto) 0.1 CBC Comment DIFF FINAL Differential Comment Bedside Sodium 140 Blood Urea Nitrogen 19 Creatinine 1.01 Random Glucose 157 Calcium Level 8.0 Sodium Level 140 Potassium Level 3.5 Chloride Level 105 Carbon Dioxide Level 24.0 Bedside Potassium 3.4 Bedside Chloride 100 Anion Gap 11 Bedside Blood Urea Nitrogen 18 Bedside Creatinine 0.9 Estimat Glomerular Filtration Rate 71 Bedside Glucose 160 Vitamin B12 Level 351 Thyroid Stimulating Hormone 3rd Gen 0.544 Nasal Screen MRSA (PCR) MRSA NOT DETECTED Date/Time Source Procedure Growth Status 11/18/16 16:26 Blood Other Aerobic Blood Culture - Final NO GROWTH IN 5 DAYS Complete 11/18/16 16:26 Blood Other Anaerobic Blood Culture - Final NO GROWTH IN 5 DAYS Complete 11/18/16 09:27 Urine Catheterized Urine Urine Culture - Final Klebsiella Oxytoca Esbl Pos Complete ROS General: Other (unable to obtain ROS ) Physical Exam Physical Exam GENERAL: This is a frail, thin built elderly male. SKIN: No rashes, ecchymoses or lesions. Cool and dry. HEAD: Left forehead with laceration, Steri-Strips in place. Left periorbital bruising. EYES: Pupils equal round and reactive, but sluggish. No scleral icterus. No injection or drainage. ENT: Nose without bleeding, purulent drainage or septal hematoma. Throat without erythema, tonsillar hypertrophy or exudate. Uvula midline. Airway patent. NECK: Trachea midline. No JVD or lymphadenopathy. Supple, nontender, no meningeal signs. CARDIOVASCULAR: S1 and S2, sinus tachycardia. No rubs, no gallops, no murmurs. RESPIRATORY: coarse. GASTROINTESTINAL: Abdomen soft, non-tender, nondistended. No hepato-splenomegaly , or palpable masses. No guarding. : large inguinal hernia MUSCULOSKELETAL: Extremities without clubbing, cyanosis, or edema. No joint tenderness, effusion, or edema noted. No calf tenderness. Negative Homans sign bilaterally. NEUROLOGICAL: obtunded, withdraws to noxious stimuli Urinary Catheter: Yes Assessment to: Continue Anaya insert reason: Obstruction/Retention Vascular Central Line Catheter: Yes Assessment to: Continue Line: PICC A/P Diagnosis: (1) Fall ICD Codes: W19.XXXA - Unspecified fall, initial encounter Status: Acute (2) Facial laceration ICD Codes: S01.81XA - Laceration without foreign body of other part of head, initial encounter Status: Acute (3) Subdural hematoma, acute ICD Codes: I62.01 - Nontraumatic acute subdural hemorrhage Status: Acute (4) Fracture of orbital wall ICD Codes: S02.80XA - Fracture of other specified skull and facial bones, unspecified side, initial encounter for closed fracture Status: Acute (5) Tachycardia ICD Codes: R00.0 - Tachycardia, unspecified Status: Acute (6) Frequent falls ICD Codes: R29.6 - Recurrent falls Status: Chronic (7) Ataxia ICD Codes: R27.0 - Ataxia Status: Acute (8) NPH (normal pressure hydrocephalus) ICD Codes: G91.2 - Normal pressure hydrocephalus Status: Chronic (9) Diabetes ICD Codes: E11.9 - Diabetes mellitus Status: Chronic (10) BPH (benign prostatic hyperplasia) ICD Codes: N40.0 - Benign prostatic hyperplasia Status: Chronic (11) Peripheral neuropathy ICD Codes: G62.9 - Peripheral neuropathy Status: Chronic (12) Hyperlipidemia ICD Codes: E78.5 - Hyperlipidemia Status: Chronic (13) Hypertension ICD Codes: I10 - Hypertension Status: Chronic (14) S/P PHOTOENGRAVING SKETCH MAKER shunt ICD Codes: Z98.2 - Status post ventriculoperitoneal shunt Status: Resolved (15) Chronic indwelling Anaya catheter ICD Codes: Z92.89 - Personal history of other medical treatment Status: Chronic (16) Urinary tract infection ICD Codes: N39.0 - Urinary tract infection, site not specified Status: Acute (17) Impaired cognition ICD Codes: R41.89 - Impaired cognition Status: Chronic Assessment and Plan 81-year-old elderly male with history of NPH has PHOTOENGRAVING SKETCH MAKER shunt, recurrent falls, dementia, peripheral neuropathy, physical debility, recurrent UTIs and sepsis. Subdural hematoma, status post fall Left forehead laceration Left orbital floor fracture without entrapment per CT finding -Neurosurgery input appreciated, non surgical management recommended -Continue neuro checks -Fall precautions -Avoid any anticoagulation -appreciate Dr. Shah's input-recommended adjusting PHOTOENGRAVING SKETCH MAKER shunt, to 200. Can have F/ U CT head as OP -worsening neuro status, more obtunded. New onset seizure, likely sec. to SDH. [facility] called, witnessed seizure per staff -appreciate neurology input -imaging studies reviewed -EEG done, results pending -Continue Cerebyx and Keppra -Ativan PRN Sepsis, new fever, tachy, WBC elevated. ? asp PNA. Recurrent UTI, chronic indwelling catheter. Urine culture positive for Enterobacter cloacae, Klebsiella oxytoca ESBL positive. -Continue with ertapenem -ID input appreciated -Anaya catheter was changed in the emergency room -UC positive for Klebsiella oxytoca ESBL positive. -ID recommended 2 weeks of Ertapenem/OK for PICC if remains afebrile and blood clx are negative @ alt least 72 hrs -has PICC line -repeat BC x 2, CXR now -add Vanco -Flagyl- unable to give, not available. Type 2 diabetes Accu-Cheks before meals and at bedtime with insulin therapy Hypertension, stable -continue home medications Hyperlipidemia Continue with home medications SCDs for DVT prophylaxis, avoid anticoagulation PT eval and OOB with assistance Fall precautions Keep NPO, high risk for aspiration NGT for meds only pt. appears to be deteriorating, more obtunded overall poor prognosis DNR status Palliative care following d/w at length, update given pt. appropriate for hospice, not ready to transition yet but wants to talk to her children d/w Regla ELDER palliative care. She will contact family. Keep in ICU for now, pt. is DNR but full active treatment D/W RN D/W Dr. Greenwood/Regla ELDER D/W pt's at length This patient was seen by myself and Dr. Greenwood, this note is written on his behalf Problem Qualifiers (1) Fall: Qualified Codes: W19.XXXA - Unspecified fall, initial encounter (2) Facial laceration: Qualified Codes: S01.81XA - Laceration without foreign body of other part of head, initial encounter (3) Fracture of orbital wall: Qualified Codes: S02.80XA - Fracture of other specified skull and facial bones , unspecified side, initial encounter for closed fracture (4) Diabetes: Qualified Codes: E11.8 - Type 2 diabetes mellitus with unspecified complications (5) Peripheral neuropathy: Qualified Codes: G62.9 - Polyneuropathy, unspecified (6) Hyperlipidemia: Qualified Codes: E78.5 - Hyperlipidemia, unspecified (7) Hypertension: Qualified Codes: I10 - Essential (primary) hypertension (8) Urinary tract infection: Qualified Codes: T83.511D - Infection and inflammatory reaction due to indwelling urethral catheter, subsequent encounter; N39.0 - Urinary tract infection, site not specified Joan Martinez AND [employer]RE [employer] Nov 26, 2016 12:37
[2016-11-26] MEDS ORDERED: VANCOMYCIN INJ 1,000 MG in SODIUM CHLOR 0.9% 250 ML INJ 250 ML IV ONE (14:00)
--- NOTE | 2016-11-26 14:04 | RADRPT ---
EXAM DATE/TIME: 11/26/2016 13:20 [place] COMPARISON: CHEST SINGLE AP, November 18, 2016, 7:52. INDICATIONS : Congestion. MEDICAL HISTORY : Hypertension. Diabetes mellitus type II. Cardiovascular disease. Dementia. SURGICAL HISTORY : CIRCUS TRAIN SUPERVISOR Shunt. ENCOUNTER: Subsequent ACUITY: 1 week PAIN SCORE: Non-responsive. LOCATION: Bilateral chest FINDINGS: Bilateral mixed interstitial and alveolar process has developed in the perihilar locations and lower lung bases not present previously. NG tube is present with tip in the stomach. CIRCUS TRAIN SUPERVISOR shunt is again seen . The rest of the examination has not significantly changed. CONCLUSION: Interval development of bilateral mixed interstitial and alveolar process could represent pulmonary e simone. KCynthia Parker MD on November 26, 2016 at 14:02 Board Certified Radiologist. This report was verified electronically.
--- NOTE | 2016-11-26 14:45 | MG ---
cc: BRIDGETT PRUETT MD Lab No: [id number] Date: 11/26/2016 Age: Sex: M Race: DATE OF : 1935. HISTORY: An 81-year-old with history of seizure activity and intracranial hemorrhage. DESCRIPTION OF THE RECORDING: Generalized 1-3 Hz delta activity appreciated 5-40 microvolts. Occasional spindles. A couple of tiny small right frontal sharp transients at epoch 106. No driving with photic stimulation. Single lead EKG showing sinus tachycardia. INTERPRETATION: Moderate encephalopathy in a sleep state. Clinical correlation. Bridgett Pruett MD /NAT /2:31 PM /2:41 PM
[2016-11-26] MEDS: ERTAPENEM INJ 1,000 MG in SODIUM CHLORIDE 0.9% INJ 100 ML IV SCH (16:57)
--- NOTE | 2016-11-26 17:29 | HHI.NSPN ---
(Tristen Hutchinson) History Chief Complaint: Unable to obtain due to patient's clinical condition. (Tristen Hutchinson) Interval History 11/18: An 81-year-old gentleman with a history of dementia and normal pressure hydrocephalus who currently resides in a alf. He apparently fell at the alf and struck the left side of his head with a forehead laceration and was brought to [facility] for further evaluation. CT scan of the head reveals small para-falcine occipital subdural hemorrhage without mass effect or midline shift. CT of the cerebral spine does not reveal any fractures. Maxillofacial CT scan revealed the possibility of a fracture involving the orbit floor without any entrapment. The patient is here with his and has been lethargic but does arouse and follow simple commands. She informs me that he has been actively followed by Dr. Shah and last saw him two weeks ago and is scheduled to get another followup MRI scan and visit subsequently. He has had a BEHAVIORAL MEDICAL DIRECTOR shunt placement for normal pressure hydrocephalus in March 2014. The patient has a very dysarthric speech and cannot relate much of a history. 11/19/16: Pt awakens to voice although prefers eyes closed. Denies headache. Dementia makes obtaining more info difficult. 2: Persistent decreased mental status for the past few days. 11/21: Persistent decreased mental status for the past few days following a recent fall. 11/26: Per the EMR the patient had worsening mental status and seizure. He was subsequently transferred to the [facility]. A repeat CT brain demonstrated a probable focal posterior left subdural haemorrhage, otherwise it was stable. An EEG demonstrated moderate encephalopathy. (Tristen Hutchinson) System Review Comments Unable to obtain due to patient's clinical condition. (Tristen Hutchinson) Exam Results 11/24/16 11/24/16 11/25/16 11/25/16 11/26/16 11/26/16 05:59 17:59 05:59 17:59 05:59 17:59 Intake Total 980 ml 1063 ml 1100 ml 710 ml Output Total 950 ml 550 ml 150 ml 775 ml 400 ml Balance 30 ml 513 ml -150 ml 325 ml 310 ml Intake Oral 0 ml IV Total 980 ml 1063 ml 1100 ml 710 ml Output Urine Total 950 ml 550 ml 150 ml 775 ml 400 ml # Bowel Movements 0 1 1 0 Vital Signs Date Time Temp Pulse Resp B/P (MAP) Pulse Ox O2 Delivery O2 Flow Rate FiO2 11/26/16 17:00 91 16 123/69 (87) 96 11/26/16 16:00 93 11 120/71 (87) 97 11/26/16 15:36 99 11/26/16 15:09 96 11/26/16 15:00 97 11/26/16 14:00 97 11/26/16 13:00 94 11/26/16 12:00 86 11/26/16 12:00 99.2 11/26/16 12:00 86 17 116/66 (83) 99 11/26/16 11:00 101 29 131/71 (91) 99 11/26/16 11:00 101 11/26/16 10:00 123 11/26/16 10:00 123 24 143/83 (103) 98 11/26/16 08:31 95 Nasal Cannula 2.00 11/26/16 06:00 101 11/26/16 05:28 102 11/26/16 05:27 100.2 102 22 129/82 (98) 97 11/26/16 03:50 100.1 128 20 133/78 (96) 95 11/26/16 03:00 98.8 122 22 160/85 (110) 100 11/26/16 00:00 97.1 106 22 127/71 (89) 94 11/25/16 21:00 115 11/25/16 20:00 100.4 109 20 122/67 (85) 93 11/25/16 19:57 95 Nasal Cannula 3.00 11/25/16 16:00 99.6 112 20 158/81 (106) 95 11/25/16 15:00 98 11/25/16 14:04 92 Nasal Cannula 3.00 11/25/16 12:00 100.2 92 20 164/91 (115) 92 11/25/16 08:00 99.3 76 20 175/83 (113) 92 11/25/16 07:45 91 11/25/16 04:00 97.6 89 20 165/79 (107) 94 11/25/16 00:00 97.8 82 20 172/81 (111) 98 11/24/16 20:00 99.4 84 20 151/79 (103) 97 11/24/16 16:27 99.4 89 20 171/78 (109) 99 11/24/16 15:00 85 11/24/16 12:08 97.6 86 20 176/81 (112) 95 11/24/16 08:08 99.1 115 20 162/81 (108) 96 11/24/16 07:00 103 11/24/16 04:00 97.0 88 22 120/80 (93) 93 11/24/16 00:04 98 11/24/16 00:00 99.0 89 21 125/88 (100) 94 11/23/16 20:45 99.2 97 21 129/91 (104) 94 (Tristen Hutchinson) Physical Examination General: Patient lethargic but responds to commands. With snoring respirations. Neurologic: Lethargic, GCS 8 (E1 V1 M6). No eye opening to command or noxious stimulation. No verbalisation. Weak grasp to command bilaterally, does wiggle toes to command R>L. (Tristen Hutchinson) Lab, Micro, Other Results Recent Impressions Neck CTA 11/26/16307 Signed Impressions: Service Date/Time: Saturday, November 26, 2016 03:33 - CONCLUSION: 1. Calcified plaque in the origin of the internal carotid arteries bilaterally with resultant 45-50%% stenosis on the right and 20%% stenosis on the left. 2. Patent bilateral vertebral arteries. 3. Moderate to large left pleural effusion. 4. 2.2 cm right thyroid nodule. Selvin Bernstein MD Head CTA 11/26/16307 Signed Impressions: Service Date/Time: Saturday, November 26, 2016 03:33 - CONCLUSION: 1. Unremarkable CTA examination without evidence for intracranial large vessel occlusion or stenosis. Selvin Bernstein MD Head CT 11/26/16 0000 Signed Impressions: Service Date/Time: Saturday, November 26, 2016 03:27 - CONCLUSION: 1. 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 2. Stable right BEHAVIORAL MEDICAL DIRECTOR shunt catheter with stable ventricular size and small amount of intraventricular blood products. 3. Otherwise, no significant interval change. Selvin Bernstein MD Chest X-Ray 11/26/16 0000 Signed Impressions: Service Date/Time: Saturday, November 26, 2016 13:20 - CONCLUSION: Interval development of bilateral mixed interstitial and alveolar process could represent pulmonary edema. Melissa Parker MD Laboratory Tests Test 11/24/16 08:30 11/26/16 02:55 11/26/16 03:13 11/26/16 04:00 White Blood Count 11.2 TH/MM3 22.7 TH/MM3 Red Blood Count 3.92 MIL/MM3 4.55 MIL/MM3 Hemoglobin 11.1 GM/DL 12.5 GM/DL Hematocrit 33.2 % 38.6 % Mean Corpuscular Volume 84.7 FL 84.9 FL Mean Corpuscular Hemoglobin 28.2 PG 27.5 PG Mean Corpuscular Hemoglobin Concent 33.3 % 32.4 % Red Cell Distribution Width 14.7 % 15.1 % Platelet Count 300 TH/MM3 412 TH/MM3 Mean Platelet Volume 8.4 FL 7.8 FL Neutrophils (%) (Auto) 79.5 % 83.7 % Lymphocytes (%) (Auto) 8.1 % 6.6 % Monocytes (%) (Auto) 10.5 % 9.2 % Eosinophils (%) (Auto) 1.5 % 0.1 % Basophils (%) (Auto) 0.4 % 0.4 % Neutrophils # (Auto) 8.9 TH/MM3 19.0 TH/MM3 Lymphocytes # (Auto) 0.9 TH/MM3 1.5 TH/MM3 Monocytes # (Auto) 1.2 TH/MM3 2.1 TH/MM3 Eosinophils # (Auto) 0.2 TH/MM3 0.0 TH/MM3 Basophils # (Auto) 0.0 TH/MM3 0.1 TH/MM3 CBC Comment DIFF FINAL DIFF FINAL Differential Comment Blood Gas Puncture Site LT RADIAL Blood Gas Patient Temperature 98.6 Blood Gas HCO3 21 mmol/L Blood Gas Base Excess -2.6 mmol/L Blood Gas Oxygen Saturation 93 % Arterial Blood pH 7.43 Arterial Blood Partial Pressure CO2 32 mmHg Arterial Blood Partial Pressure O2 80 mmHg Arterial Blood Oxygen Content 16.1 Vol % Arterial Blood Carboxyhemoglobin 1.2 % Arterial Blood Methemoglobin 0.9 % Blood Gas Hemoglobin 12.3 G/DL Oxygen Delivery Device NASAL CANNULA Blood Gas Liter Flow 3 L/M Bedside Hemoglobin 12.6 G/DL Bedside Hematocrit 37.0 % Bedside Sodium 140 MMOL/L Blood Urea Nitrogen 19 MG/DL Creatinine 1.01 MG/DL Random Glucose 157 MG/DL Calcium Level 8.0 MG/DL Sodium Level 140 MEQ/L Potassium Level 3.5 MEQ/L Chloride Level 105 MEQ/L Carbon Dioxide Level 24.0 MEQ/L Bedside Potassium 3.4 MMOL/L Bedside Chloride 100 MMOL/L Anion Gap 11 MEQ/L Bedside Blood Urea Nitrogen 18 MG/DL Bedside Creatinine 0.9 MG/DL Estimat Glomerular Filtration Rate 71 ML/MIN Bedside Glucose 160 MG/DL Vitamin B12 Level 351 PG/ML Thyroid Stimulating Hormone 3rd Gen 0.544 uIU/ML Nasal Screen MRSA (PCR) MRSA NOT DETECTED Test 11/26/16 08:55 11/26/16 12:54 Blood Gas Puncture Site RT RADIAL Blood Gas Patient Temperature 98.6 Blood Gas HCO3 24 mmol/L Blood Gas Base Excess 0.4 mmol/L Blood Gas Oxygen Saturation 93 % Arterial Blood pH 7.42 Arterial Blood Partial Pressure CO2 38 mmHg Arterial Blood Partial Pressure O2 80 mmHg Arterial Blood Oxygen Content 15.2 Vol % Arterial Blood Carboxyhemoglobin 1.5 % Arterial Blood Methemoglobin 1.2 % Blood Gas Hemoglobin 11.6 G/DL Oxygen Delivery Device NASAL CANNULA Blood Gas Liter Flow 2 L/M Ammonia 24 MCMOL/L Vitamin B12 Level 359 PG/ML Thyroid Stimulating Hormone 3rd Gen 1.510 uIU/ML (Tristen Hutchinson) Medical Decision Making Impression and Plan Impression: 1. 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 2. Persistent altered mental status. 3. Positive mild to moderate bilateral diffuse subdural effusion-hygroma. Patient with apparent worsening of mental status yesterday. Does follow commands to a limited degree. No eye opening and nonconversant. Prognosis poor for any meaningful recovery. Stable bilateral subdural hygromas Probable focal left posterior subdural haemorrhage Plan: Primary management per Hospitalist. Critical care management per Panel Machine Operator. Frequent neuro checks. Palliative Care following. (Tristen Hutchinson) Attending Statement The exam, history, and the medical decision-making described in the above note were completed with the assistance of the mid-level provider. I reviewed and agree with the findings presented. I attest that I had a [id number] encounter with the patient on the same day, and personally performed and documented my assessment and findings in the medical record. Mental and pulmonary function have declined in the past day. Discussed with medicine service today. Will speak further with the family (Darrel Shah MD) Tristen Hutchinson Nov 26, 2016 17:29 Darrel Shah MD Nov 27, 2016 19:23
[2016-11-26] MEDS: FOSPHENYTOIN SODIUM 100 MG PE/2 ML VIAL IV SCH (20:53)
[2016-11-26] MEDS: POLYETHYLENE GLYCOL 17 GM PKG PO SCH (20:54)
[2016-11-27] VITALS (16 sets, daily range): BP systolic 110–166; BP diastolic 59–86; PULSE 82–116; RESP 19–35; TEMP 97.2–100; O2SAT 86–99
[2016-11-27] MEDS: levETIRAcetam 1000 MG INJ 100 ML IV SCH ×2 (05:35→14:57)
[2016-11-27] MEDS: SODIUM CHLOR 0.9% 1000 ML INJ 1,000 ML IV SCH ×2 (05:38→21:00)
[2016-11-27] MEDS: INSULIN ASPART SUPPLEMENTAL SCALE SQ SCH ×4 (05:38→20:54)
[2016-11-27] MEDS: PRAVASTATIN SOD 20 MG TAB PO SCH (09:00)
[2016-11-27] MEDS: FOSPHENYTOIN SODIUM 100 MG PE/2 ML VIAL IV SCH ×2 (09:22→20:57)
[2016-11-27] MEDS: VENLAFAXINE HCL XR 75 MG CAP PO SCH (09:23)
[2016-11-27] MEDS: MAGNESIUM OXIDE 400 MG TAB PO SCH (09:23)
[2016-11-27] MEDS: METOCLOPRAMIDE HCL 10 MG TAB PO SCH ×3 (09:23→14:57)
[2016-11-27] MEDS: LISINOPRIL 5 MG TAB PO SCH (09:23)
[2016-11-27] MEDS: FAMOTIDINE 20 MG TAB PO SCH (09:23)
[2016-11-27] MEDS: METOPROLOL TARTRATE 25 MG TAB PO SCH ×2 (09:25→20:54)
[2016-11-27] MEDS: DOCUSATE SODIUM 100 MG CAP PO SCH ×2 (09:25→20:53)
[2016-11-27] MEDS: RESP: ALBUTEROL 2.5 MG/IPRATROPIUM 0.5 MG NEB (SCH) NEB ×4 (09:36→19:38)
--- NOTE | 2016-11-27 14:17 | HHI.PR ---
Review/Management Diagnosis/Plan: (1) Seizure cerebral ICD Codes: I67.89 - Other cerebrovascular disease Status: Acute Plan: appears to have new-onset sz likely 2/2 sdh iv keppra and iv cerebryx recs nutritional support- tf increase iv cerebryx to q8hrs check albumin level eeg- no active sz's mri brain-pending; needs evp chief exploration officer shunt adjusted afterwards palliative care following d/w rn (2) Acute encephalopathy ICD Codes: G93.40 - Encephalopathy, unspecified Status: Acute (3) Subdural hematoma, acute ICD Codes: I62.01 - Nontraumatic acute subdural hemorrhage Status: Acute (4) Nontraumatic brain injury ICD Codes: 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.890A - Other specified intracranial injury without loss of consciousness, initial encounter Status: Acute (5) NPH (normal pressure hydrocephalus) ICD Codes: G91.2 - Normal pressure hydrocephalus Status: Chronic (6) Frequent falls ICD Codes: R29.6 - Recurrent falls Status: Chronic Subjective Subjective Comments No acute events reported Active Medications Current Medications Medications (Trade) Dose Ordered Sig/Robert Route Start Time Stop Time Status Last Admin (NS Flush) 2 ml UNSCH PRN IVF 11/18/16 07:45 (Tylenol) 650 mg Q4H PRN PO 11/18/16 11:00 11/20/16 20:55 (Colace) 100 mg BID PO 11/18/16 21:00 11/27/16 09:25 (Mag-Ox) 400 mg DAILY PO 11/19/16 09:00 11/27/16 09:23 (Reglan) 5 mg TIDAC PO 11/18/16 12:00 11/27/16 12:42 (Miralax) 17 gm HS PO 11/18/16 21:00 11/26/16 20:54 (Effexor Xr) 150 mg DAILY PO 11/19/16 09:00 11/27/16 09:23 (Prinivil) 2.5 mg DAILY PO 11/19/16 09:00 11/27/16 09:23 (Pepcid) 20 mg DAILY PO 11/19/16 09:00 11/27/16 09:23 (Pravachol) 20 mg DAILY PO 11/19/16 09:00 11/27/16 09:00 (Lopressor) 25 mg Q12HR PO 11/18/16 21:00 11/27/16 09:25 (Zofran Inj) 4 mg Q8HR PRN IV PUSH 11/18/16 11:15 (D50w (Vial) Inj) 50 ml UNSCH PRN IV 11/18/16 11:15 (Glucagon Inj) 1 mg UNSCH PRN OTHER 11/18/16 11:15 (NovoLOG SUPPLEMENTAL SCALE) 1 ACHS SLIDING SCALE SQ 11/18/16 16:00 11/22/16 21:41 (Pill Splitter) 1 ea UNSCH PRN OTHER 11/18/16 11:30 Ertapenem 1000 mg/ Sodium Chloride 100 ml @ 200 mls/hr Q24H IV 11/20/16 17:00 11/26/16 16:57 (Vasotec Inj) 1.25 mg Q8H PRN IV PUSH 11/23/16 14:45 (Duoneb Neb) 1 ampule QID NEB NEB 11/25/16 12:00 11/27/16 11:13 (Tylenol Supp) 650 mg Q4H PRN RECTAL 11/25/16 21:45 11/25/16 22:00 Sodium Chloride 1,000 ml @ 75 mls/hr [id number] IV 11/26/16 03:08 11/27/16 05:38 Levetriacetam 100 ml @ 400 mls/hr Q12H IV 11/26/16 04:00 11/27/16 05:35 (Cerebyx Inj) 200 mgpe Q12HR IV 11/26/16 21:00 11/27/16 09:22 Allergies Allergies Coded Allergies *MDRO Multi-Drug Resistant Organism (Verified Adverse Reaction, Unknown, ) Review of Systems All other ROS: ROS reviewed as documented in chart Exam I&O / VS Vital Signs Date Time Temp Pulse Resp B/P (MAP) Pulse Ox O2 Delivery O2 Flow Rate FiO2 11/27/16 09:37 93 21 11/27/16 07:00 115 11/27/16 04:00 97.2 103 25 130/64 (86) 94 11/27/16 00:00 97.4 99 28 110/59 (76) 86 11/26/16 23:00 98 11/26/16 20:27 96 Nasal Cannula 11/26/16 20:00 98.2 106 31 115/63 (80) 95 11/26/16 17:00 91 16 123/69 (87) 96 11/26/16 16:00 93 11 120/71 (87) 97 11/26/16 15:36 99 11/26/16 15:09 96 11/26/16 15:00 97 Respiratory: Non-labored respirations Exam Comments stupor, non-verbal, not following, grimaces, open mouth breathing, ou 3mm sluggishly reactive, no gaze deviation, no sz activity, left ue flexes today, rt ue flexes, withdraws cory le, no clonus, planterflexor Objective Micro and Labs Laboratory Tests Test 11/26/16 17:06 11/27/16 04:19 Erythrocyte Sedimentation Rate 11 Phenytoin (Dilantin) Level 3.5 Date/Time Source Procedure Growth Status 11/26/16 17:06 Blood Peripheral Aerobic Blood Culture - Preliminary NO GROWTH IN 1 DAY Resulted 11/26/16 17:06 Blood Peripheral Anaerobic Blood Culture - Preliminary NO GROWTH IN 1 DAY Resulted 11/18/16 09:27 Urine Catheterized Urine Urine Culture - Final Klebsiella Oxytoca Esbl Pos Complete Kory Morgan MD Nov 27, 2016 14:17
[2016-11-27] MEDS: ERTAPENEM INJ 1,000 MG in SODIUM CHLORIDE 0.9% INJ 100 ML IV SCH (15:37)
[2016-11-27] MEDS ORDERED: FOSPHENYTOIN INJ 500 MGPE in SODIUM CHLORIDE 0.9% INJ 50 ML IV ONE (16:00)
--- NOTE | 2016-11-27 17:19 | HHI.PR ---
Subjective Subjective Remarks Eyes closed, snoring respirations Grimaces to sternal rub, otherwise lethargic nonverbal Multiple family members in room Heart rate tachycardic Review of Systems Constitutional Constitutional Remarks Grimaced to sternal rub otherwise nonresponsive Vitals/Results Vital Signs Vital Signs Date Time Temp Pulse Resp B/P (MAP) Pulse Ox O2 Delivery O2 Flow Rate FiO2 11/27/16 09:37 93 21 11/27/16 07:00 115 11/27/16 04:00 97.2 103 25 130/64 (86) 94 11/27/16 00:00 97.4 99 28 110/59 (76) 86 11/26/16 23:00 98 11/26/16 20:27 96 Nasal Cannula 11/26/16 20:00 98.2 106 31 115/63 (80) 95 CBC/BMP: 11/26/16 0313 11/26/16 0313 Lab Results Laboratory Tests Test 11/27/16 04:19 Albumin 2.3 GM/DL Phenytoin (Dilantin) Level 3.5 MCG/ML Imaging Remarks Last Impressions Neck CTA 11/26/16307 Signed Impressions: Service Date/Time: Saturday, November 26, 2016 03:33 - CONCLUSION: 1. Calcified plaque in the origin of the internal carotid arteries bilaterally with resultant 45-50%% stenosis on the right and 20%% stenosis on the left. 2. Patent bilateral vertebral arteries. 3. Moderate to large left pleural effusion. 4. 2.2 cm right thyroid nodule. Selvin Bernstein MD Head CTA 11/26/16 030 Signed Impressions: Service Date/Time: Saturday, November 26, 2016 03:33 - CONCLUSION: 1. Unremarkable CTA examination without evidence for intracranial large vessel occlusion or stenosis. Selvin Bernstein MD Head CT 11/26/16 0000 Signed Impressions: Service Date/Time: Saturday, November 26, 2016 03:27 - CONCLUSION: 1. 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 2. Stable right COMPUTER SYSTEM VALIDATION SPECIALIST shunt catheter with stable ventricular size and small amount of intraventricular blood products. 3. Otherwise, no significant interval change. Selvin Bernstein MD Chest X-Ray 11/26/16 0000 Signed Impressions: Service Date/Time: Saturday, November 26, 2016 13:20 - CONCLUSION: Interval development of bilateral mixed interstitial and alveolar process could represent pulmonary edema. Melissa Parker MD Maxillofacial CT 11/18/1637 Signed Impressions: Service Date/Time: October 07:44 - CONCLUSION: 1. There is extraconal air within the left orbit with periorbital soft tissue swelling. I' m not clearly able to see a fracture on this study that is slightly limited by motion artifact but I suspect there is an orbital floor fracture without entrapment. Karsten Bledsoe Jr., MD Cervical Spine CT 11/18/1637 Signed Impressions: Service Date/Time: October 07:44 - CONCLUSION: 1. No fracture or dislocation. 2. Degenerative changes. 3. Calcified plaque involving the carotid arteries. Karsten Bledsoe Jr., MD Current Medications Administered Medications Medications (Trade) Dose Ordered Sig/Robert Route PRN Reason Start Time Stop Time Status Last Admin Dose Admin Acetaminophen (Tylenol) 650 mg Q4H PRN PO FEVER 11/18/16 11:00 11/20/16 20:55 Docusate Sodium (Colace) 100 mg BID PO 11/18/16 21:00 11/27/16 09:25 Magnesium Oxide (Mag-Ox) 400 mg DAILY PO 11/19/16 09:00 11/27/16 09:23 Metoclopramide HCl (Reglan) 5 mg TIDAC PO 11/18/16 12:00 11/27/16 14:57 Polyethylene Glycol (Miralax) 17 gm HS PO 11/18/16 21:00 11/26/16 20:54 Venlafaxine HCl (Effexor Xr) 150 mg DAILY PO 11/19/16 09:00 11/27/16 09:23 Lisinopril (Prinivil) 2.5 mg DAILY PO 11/19/16 09:00 11/27/16 09:23 Famotidine (Pepcid) 20 mg DAILY PO 11/19/16 09:00 11/27/16 09:23 Pravastatin Sodium (Pravachol) 20 mg DAILY PO 11/19/16 09:00 11/27/16 09:00 Metoprolol Tartrate (Lopressor) 25 mg Q12HR PO 11/18/16 21:00 11/27/16 09:25 Insulin Aspart (NovoLOG SUPPLEMENTAL SCALE) 1 ACHS SLIDING SCALE SQ 11/18/16 16:00 11/22/16 21:41 Ertapenem 1000 mg/ Sodium Chloride 100 ml @ 200 mls/hr Q24H IV 11/20/16 17:00 11/27/16 15:37 Albuterol/ Ipratropium (Duoneb Neb) 1 ampule QID NEB NEB 11/25/16 12:00 11/27/16 15:04 Acetaminophen (Tylenol Supp) 650 mg Q4H PRN RECTAL FEVER 11/25/16 21:45 11/25/16 22:00 Sodium Chloride 1,000 ml @ 75 mls/hr [id number] IV 11/26/16 03:08 11/27/16 05:38 Levetriacetam 100 ml @ 400 mls/hr Q12H IV 11/26/16 04:00 11/27/16 14:57 Physical Exam General General Appearance: Sleeping (lethargic) Appearance Remarks Lethargic, only response noted is sternal rub, family states they think he does hear their voice Eyes Eye Remarks PEARLA at 2mm, sluggish response Throat Throat Remarks Oropharynx very dry, mouth open with snoring type respirations Neck Neck Exam: Neck Supple Pulmonary Resp Exam: Rhonchi (audible rhonchi), Decreased Bases, Diminished Breath Sounds , Poor Inspiratory Effort Cardiology CV Exam: Tachycardia Gastrointestinal/Abdomen GI Exam: Bowel Sounds Present (occasional upper abdomen gurgling) GI Remarks NG tube clamped Genitourinary Remarks Anaya catheter, yellow urine in bag Integumentary Skin Exam: Warm, Dry Extremeties Extremities Exam: Trace Edema Neurologic Neuro Exam: Stuporous Neuro Remarks Lethargic Assessment/Plan Assessment/Plan Vital signs reviewed, patient is afebrile tachycardic, some atrial tachycardia short runs noted while in room Labs reviewed, last noted labs showed leukocytosis 22.7, anemia 12.5 mild, no obvious blood loss noted ECG monitoring shows tachycardia with some runs of atrial tachycardia present Subdural hematoma, status post fall Left forehead laceration and racoon bruising left eye Neurosurgery input appreciated, moved to the intensive care setting for possible seizures, patient was started on Keppra EEG showed no seizure activity Patient continues to decline lethargic to obtunded except for grimace to sternal rub Respirations snoring, irregular, tachycardia noted on monitor, with some short burst of atrial tachycardia seen while in room Possible New onset seizure versus tremors, Marissa called, initially on neurology input Patient had multiple scans done which included head and neck CTA, no obvious acute changes noted, chest x-ray did show some mild interstitial edema, CT of the head showed no significant changes Sepsis, new fever, leukocytosis, unspecified Recurrent UTI, chronic indwelling catheter. Urine culture positive for Enterobacter cloacae, Klebsiella oxytoca ESBL positive. ID input appreciated PICC line present, chest x-ray does show some mild interstitial changes, vancomycin added Currently has NG tube clamped Type 2 diabetes Accu-Cheks before meals and at bedtime with insulin therapy Hypertension, hyperlipidemia diabetes type 2 monitored for their stability stable Continuous ECG monitoring in the ICU setting SCDs for DVT prophylaxis, avoid anticoagulation Fall precautions Patient's generalized condition continues to deteriorate, palliative care team has been working with and family who wanted to give him one last chance this past week Today, In-depth conversation with and sons over patient's wishes and general medical data realizes patient is very ill, that is struggling with "giving up on him". Supportive care to and family and patient DNR status remains otherwise full aggressive care Dr. Greenwood spoke to son on telephone and explained his findings and his concerns over patient condition and continuing to deteriorate even though he is receiving full aggressive care. He also discussed information and recommendations from neurology and gave the family options for comfort care due to patient's grim prognosis. would like some time to be with her family and patient, understands current medical information given to her. Discussion also included, EEG showing no seizure activity, and the focus per the patient's treating doctors for more of a comfort focused care. Keep in ICU for now, pt. is DNR but full active treatment Discussed with and 2 sons Discussed with nurse Discussed with Dr. Greenwood, seen on his behalf, time with patient and documentation 40 minutes Taylor Cm Nov 27, 2016 17:19
--- NOTE | 2016-11-27 18:18 | HHI.NSPN ---
History Chief Complaint: Unable to obtain due to patient's clinical condition. Interval History Persistent decreased mental status for the past few days following a recent fall. Exam Results Vital Signs Date Time Temp Pulse Resp B/P (MAP) Pulse Ox O2 Delivery O2 Flow Rate FiO2 11/27/16 09:37 93 21 11/27/16 07:00 115 11/27/16 04:00 97.2 25 130/64 (86) 11/26/16 20:27 Nasal Cannula 11/26/16 08:31 2.00 Intake and Output 11/27/16 11/27/16 11/27/16 07:59 15:59 23:59 Intake Total 550 ml 1001 ml Output Total 750 ml 500 ml Balance -200 ml 501 ml Physical Examination General: Increased pulmonary congestion versus 11/26/16 with snoring respirations. Neurologic: Lethargic, GCS 8 (E1 V1 M6). No eye opening to command or noxious stimulation. Does not verbalize Patient lethargic but responds to commands with left upper and lower extremity. Lab, Micro, Other Results Laboratory Tests Test 11/27/16 04:19 Albumin 2.3 GM/DL Phenytoin (Dilantin) Level 3.5 MCG/ML Medical Decision Making Impression and Plan Impression: 1. 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 2. Persistent altered bowel status. Encephalopathy. The patient's states that he was awake and alert, ambulating independently with a walker prior to his fall. 3. Positive mild to moderate bilateral diffuse subdural effusion-hygroma. Stable on CT head 11/26/16 Plan: Continue observation. Discussed with the patient's and son at length in IMC today. Palliative care following. He is less alert today. Prognosis for meaningful recovery remains poor. Discussed MRI with patients family. Do not believe this will alter treatment or prognosis at this point and will cancel study. His wishes to continue present treatment measures and indicates that she will likely elect for comfort measures if he continues to decline Darrel Shah MD Nov 27, 2016 18:18
[2016-11-27] MEDS: POLYETHYLENE GLYCOL 17 GM PKG PO SCH (20:54)
[2016-11-28] VITALS (16 sets, daily range): BP systolic 110–124; BP diastolic 56–67; PULSE 85–106; RESP 21–33; TEMP 97.7–99.2; O2SAT 90–100
[2016-11-28] MEDS: FOSPHENYTOIN SODIUM 100 MG PE/2 ML VIAL IV SCH ×3 (04:07→21:34)
[2016-11-28] MEDS: levETIRAcetam 1000 MG INJ 100 ML IV SCH ×2 (04:07→14:51)
[2016-11-28] MEDS: INSULIN ASPART SUPPLEMENTAL SCALE SQ SCH ×4 (06:28→19:40)
[2016-11-28] MEDS: FAMOTIDINE 20 MG TAB PO SCH (07:39)
[2016-11-28] MEDS: METOPROLOL TARTRATE 25 MG TAB PO SCH ×2 (07:39→19:48)
[2016-11-28] MEDS: PRAVASTATIN SOD 20 MG TAB PO SCH (07:39)
[2016-11-28] MEDS: LISINOPRIL 5 MG TAB PO SCH (07:39)
[2016-11-28] MEDS: VENLAFAXINE HCL XR 75 MG CAP PO SCH (07:40)
[2016-11-28] MEDS: METOCLOPRAMIDE HCL 10 MG TAB PO SCH ×3 (07:40→14:52)
[2016-11-28] MEDS: MAGNESIUM OXIDE 400 MG TAB PO SCH (07:41)
[2016-11-28] MEDS: DOCUSATE SODIUM 100 MG CAP PO SCH ×2 (07:41→19:47)
[2016-11-28] MEDS: RESP: ALBUTEROL 2.5 MG/IPRATROPIUM 0.5 MG NEB (SCH) NEB ×4 (08:00→20:07)
--- NOTE | 2016-11-28 08:13 | HHI.PR ---
Review/Management Diagnosis/Plan: (1) Seizure cerebral ICD Codes: I67.89 - Other cerebrovascular disease Status: Acute Plan: appears to have new-onset sz likely 2/2 sdh iv keppra and iv cerebryx recs neuro unchanged nutritional support- tf- per medical. 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.890A - Other specified intracranial injury without loss of consciousness, initial encounter Status: Acute (5) NPH (normal pressure hydrocephalus) ICD Codes: G91.2 - Normal pressure hydrocephalus Status: Chronic (6) Frequent falls ICD Codes: R29.6 - Recurrent falls Status: Chronic Subjective Subjective Comments No acute events reported Active Medications Current Medications Medications (Trade) Dose Ordered Sig/Robert Route Start Time Stop Time Status Last Admin (NS Flush) 2 ml UNSCH PRN IVF 11/18/16 07:45 (Tylenol) 650 mg Q4H PRN PO 11/18/16 11:00 11/20/16 20:55 (Colace) 100 mg BID PO 11/18/16 21:00 11/27/16 09:25 (Mag-Ox) 400 mg DAILY PO 11/19/16 09:00 11/28/16 07:41 (Reglan) 5 mg TIDAC PO 11/18/16 12:00 11/28/16 07:40 (Miralax) 17 gm HS PO 11/18/16 21:00 11/26/16 20:54 (Effexor Xr) 150 mg DAILY PO 11/19/16 09:00 11/27/16 09:23 (Prinivil) 2.5 mg DAILY PO 11/19/16 09:00 11/28/16 07:39 (Pepcid) 20 mg DAILY PO 11/19/16 09:00 11/28/16 07:39 (Pravachol) 20 mg DAILY PO 11/19/16 09:00 11/28/16 07:39 (Lopressor) 25 mg Q12HR PO 11/18/16 21:00 11/28/16 07:39 (Zofran Inj) 4 mg Q8HR PRN IV PUSH 11/18/16 11:15 (D50w (Vial) Inj) 50 ml UNSCH PRN IV 11/18/16 11:15 (Glucagon Inj) 1 mg UNSCH PRN OTHER 11/18/16 11:15 (NovoLOG SUPPLEMENTAL SCALE) 1 ACHS SLIDING SCALE SQ 11/18/16 16:00 11/22/16 21:41 (Pill Splitter) 1 ea UNSCH PRN OTHER 11/18/16 11:30 Ertapenem 1000 mg/ Sodium Chloride 100 ml @ 200 mls/hr Q24H IV 11/20/16 17:00 11/27/16 15:37 (Vasotec Inj) 1.25 mg Q8H PRN IV PUSH 11/23/16 14:45 (Duoneb Neb) 1 ampule QID NEB NEB 11/25/16 12:00 11/27/16 19:38 (Tylenol Supp) 650 mg Q4H PRN RECTAL 11/25/16 21:45 11/25/16 22:00 Sodium Chloride 1,000 ml @ 75 mls/hr [id number] IV 11/26/16 03:08 11/27/16 21:00 Levetriacetam 100 ml @ 400 mls/hr Q12H IV 11/26/16 04:00 11/28/16 04:07 (Cerebyx Inj) 200 mgpe Q8HR IV 11/27/16 22:00 11/28/16 04:07 Allergies Allergies Coded Allergies *MDRO Multi-Drug Resistant Organism (Verified Adverse Reaction, Unknown, ) Review of Systems All other ROS: ROS reviewed as documented in chart Exam I&O / VS Vital Signs Date Time Temp Pulse Resp B/P (MAP) Pulse Ox O2 Delivery O2 Flow Rate FiO2 11/28/16 06:00 91 11/28/16 04:00 97.7 89 33 123/64 (83) 100 11/28/16 04:00 89 11/28/16 03:00 85 23 114/59 (77) 98 11/28/16 02:00 86 29 110/56 (74) 99 11/28/16 02:00 86 11/28/16 01:00 89 21 114/67 (83) 94 11/28/16 00:00 88 11/28/16 00:00 98.0 88 32 113/62 (79) 90 11/27/16 23:00 85 25 111/62 (78) 96 11/27/16 22:00 87 11/27/16 22:00 87 24 115/61 (79) 93 11/27/16 21:00 108 22 113/63 (80) 94 11/27/16 20:00 98.6 107 23 125/67 (86) 97 11/27/16 20:00 107 11/27/16 19:41 96 Nasal Cannula 2.00 11/27/16 19:00 106 31 120/69 (86) 94 11/27/16 18:00 82 11/27/16 16:00 115 11/27/16 16:00 99.8 115 22 136/69 (91) 94 11/27/16 14:00 108 11/27/16 12:00 110 11/27/16 12:00 100.0 110 26 131/68 (89) 95 11/27/16 10:00 116 11/27/16 09:37 93 21 Respiratory: Non-labored respirations Exam Comments mildly stuporous, non-verbal, not following, grimaces, open mouth breathing, ou 3mm sluggishly reactive, no gaze deviation, no sz activity, left ue extension, rt ue flexes, withdraws cory le, no clonus, planterflexor Objective Micro and Labs Laboratory Tests Test 11/28/16 04:27 Phenytoin (Dilantin) Level 7.0 Date/Time Source Procedure Growth Status 11/26/16 17:06 Blood Peripheral Aerobic Blood Culture - Preliminary NO GROWTH IN 1 DAY Resulted 11/26/16 17:06 Blood Peripheral Anaerobic Blood Culture - Preliminary NO GROWTH IN 1 DAY Resulted 11/18/16 09:27 Urine Catheterized Urine Urine Culture - Final Klebsiella Oxytoca Esbl Pos Complete Kory Morgan MD Nov 28, 2016 08:13
[2016-11-28] MEDS: HYOSCYAMINE SOLN 0.125 MG/ML 15 ML BTL PO PRN (11:58)
[2016-11-28] MEDS: SODIUM CHLOR 0.9% 1000 ML INJ 1,000 ML IV SCH ×2 (11:58→19:30)
[2016-11-28 12:33] LABS: AUTOMATED NEUTROPHIL # 14.3 TH/MM3 (1.8-7.7); BASOPHIL # 0.1 TH/MM3 (0-0.2); BASOPHIL % 0.7 % (0.0-2.0); EOSINOPHIL # 0.1 TH/MM3 (0-0.4); EOSINOPHIL % 0.8 % (0.0-4.0); HEMATOCRIT 36.7 % (39.0-51.0); HEMO FLAGS DIFF FINAL; LYMPH % 7.2 % (9.0-44.0); LYMPHOCYTE # 1.2 TH/MM3 (1.0-4.8); MEAN CELL VOLUME 85.4 FL (80.0-100.0); MEAN CORPUSCULAR HGB CONC 31.6 % (32.0-36.0); NEUT % 85.3 % (16.0-70.0); PLATELET COUNT 379 TH/MM3 (150-450); RED BLOOD COUNT 4.29 MIL/MM3 (4.50-5.90); RED CELL DISTRIBUTION WIDTH 15.2 % (11.6-17.2); WHITE BLOOD COUNT 16.8 TH/MM3 (4.0-11.0)
[2016-11-28 13:06] LABS: BICARBONATE 27.6 MEQ/L (21.0-32.0)
[2016-11-28 13:09] LABS: POTASSIUM 2.8 MEQ/L (3.5-5.1)
--- NOTE | 2016-11-28 13:51 | HHI.PR ---
Subjective Subjective Remarks Eyes closed, Minimal Grimace to sternal rub, otherwise lethargic nonverbal Heart rate tachycardic NG tube clamped\ Afebrile, condition critical (Taylor Cm) Review of Systems Constitutional Constitutional Remarks Grimaced to sternal rub otherwise nonresponsive (Taylor Cm) Vitals/Results Vital Signs Vital Signs Date Time Temp Pulse Resp B/P (MAP) Pulse Ox O2 Delivery O2 Flow Rate FiO2 11/28/16 12:42 100 Nasal Cannula 2.00 11/28/16 10:00 87 11/28/16 08:00 94 11/28/16 08:00 97.9 94 22 123/58 (79) 100 11/28/16 06:00 91 11/28/16 04:00 97.7 89 33 123/64 (83) 100 11/28/16 04:00 89 11/28/16 03:00 85 23 114/59 (77) 98 11/28/16 02:00 86 29 110/56 (74) 99 11/28/16 02:00 86 11/28/16 01:00 89 21 114/67 (83) 94 11/28/16 00:00 88 11/28/16 00:00 98.0 88 32 113/62 (79) 90 11/27/16 23:00 85 25 111/62 (78) 96 11/27/16 22:00 87 11/27/16 22:00 87 24 115/61 (79) 93 11/27/16 21:00 108 22 113/63 (80) 94 11/27/16 20:00 98.6 107 23 125/67 (86) 97 11/27/16 20:00 107 11/27/16 19:41 96 Nasal Cannula 2.00 11/27/16 19:00 106 31 120/69 (86) 94 11/27/16 18:00 82 11/27/16 16:00 115 11/27/16 16:00 99.8 115 22 136/69 (91) 94 11/27/16 14:00 108 (Taylor Cm) CBC/BMP: 11/28/16 1157 11/28/16 1157 Lab Results Laboratory Tests Test 11/28/16 04:27 11/28/16 11:57 Phenytoin (Dilantin) Level 7.0 MCG/ML White Blood Count 16.8 TH/MM3 Red Blood Count 4.29 MIL/MM3 Hemoglobin 11.6 GM/DL Hematocrit 36.7 % Mean Corpuscular Volume 85.4 FL Mean Corpuscular Hemoglobin 27.0 PG Mean Corpuscular Hemoglobin Concent 31.6 % Red Cell Distribution Width 15.2 % Platelet Count 379 TH/MM3 Mean Platelet Volume 8.5 FL Neutrophils (%) (Auto) 85.3 % Lymphocytes (%) (Auto) 7.2 % Monocytes (%) (Auto) 6.0 % Eosinophils (%) (Auto) 0.8 % Basophils (%) (Auto) 0.7 % Neutrophils # (Auto) 14.3 TH/MM3 Lymphocytes # (Auto) 1.2 TH/MM3 Monocytes # (Auto) 1.0 TH/MM3 Eosinophils # (Auto) 0.1 TH/MM3 Basophils # (Auto) 0.1 TH/MM3 CBC Comment DIFF FINAL Differential Comment Blood Urea Nitrogen 20 MG/DL Creatinine 0.65 MG/DL Random Glucose 136 MG/DL Calcium Level 7.7 MG/DL Sodium Level 145 MEQ/L Potassium Level 2.8 MEQ/L Chloride Level 108 MEQ/L Carbon Dioxide Level 27.6 MEQ/L Anion Gap 9 MEQ/L Estimat Glomerular Filtration Rate 118 ML/MIN Imaging Remarks Last Impressions Neck CTA 11/26/16307 Signed Impressions: Service Date/Time: Saturday, November 26, 2016 03:33 - CONCLUSION: 1. Calcified plaque in the origin of the internal carotid arteries bilaterally with resultant 45-50%% stenosis on the right and 20%% stenosis on the left. 2. Patent bilateral vertebral arteries. 3. Moderate to large left pleural effusion. 4. 2.2 cm right thyroid nodule. Selvin Bernstein MD Head CTA 11/26/16307 Signed Impressions: Service Date/Time: Saturday, November 26, 2016 03:33 - CONCLUSION: 1. Unremarkable CTA examination without evidence for intracranial large vessel occlusion or stenosis. Selvin Bernstein MD Head CT 11/26/16 0000 Signed Impressions: Service Date/Time: Saturday, November 26, 2016 03:27 - CONCLUSION: 1. 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 2. Stable right SHEARER HELPER shunt catheter with stable ventricular size and small amount of intraventricular blood products. 3. Otherwise, no significant interval change. Selvin Bernstein MD Chest X-Ray 11/26/16 0000 Signed Impressions: Service Date/Time: Saturday, November 26, 2016 13:20 - CONCLUSION: Interval development of bilateral mixed interstitial and alveolar process could represent pulmonary edema. Melissa Parker MD Maxillofacial CT 11/18/1637 Signed Impressions: Service Date/Time: , November 18, 2016 07:44 - CONCLUSION: 1. There is extraconal air within the left orbit with periorbital soft tissue swelling. I' m not clearly able to see a fracture on this study that is slightly limited by motion artifact but I suspect there is an orbital floor fracture without entrapment. Karsten Bledsoe Jr., MD Cervical Spine CT 11/18/1637 Signed Impressions: Service Date/Time: , November 18, 2016 07:44 - CONCLUSION: 1. No fracture or dislocation. 2. Degenerative changes. 3. Calcified plaque involving the carotid arteries. Karsten Bledsoe Jr., MD (Taylor Cm) Physical Exam General General Appearance: Sleeping (lethargic) Appearance Remarks Lethargic, only response noted is sternal rub, family states they think he does hear their voice (Taylor Cm. BOAT CANV[employer] INSTALLER) Eyes Eye Remarks PEARLA at 2mm, sluggish response (Taylor Cm M. [employer]AT [employer] INSTALLER) Throat Throat Remarks Oropharynx very dry, mouth open with snoring type respirations (Taylor Cm M. [employer]AT [employer] INSTALLER) Neck Neck Exam: Neck Supple (Taylor Cm. BOAT CANV[employer] INSTALLER) Pulmonary Resp Exam: Rhonchi (audible rhonchi), Decreased Bases, Diminished Breath Sounds , Poor Inspiratory Effort (Taylor Cm M. BOAT CANV[employer] INSTALLER) Cardiology CV Exam: Tachycardia (Taylor Cm M. [employer]AT CANV[employer] INSTALLER) Gastrointestinal/Abdomen GI Exam: Bowel Sounds Present (occasional upper abdomen gurgling) GI Remarks NG tube clamped (Taylor Cm. [employer]AT CANV[employer] INSTALLER) Genitourinary Remarks Anaya catheter, yellow urine in bag (Taylor CmP) Integumentary Skin Exam: Warm, Dry (Taylor Cm) Extremeties Extremities Exam: Trace Edema (Taylor Cm) Neurologic Neuro Exam: Stuporous Neuro Remarks Lethargic (Taylor Cm) Assessment/Plan Assessment/Plan Vital signs reviewed, patient is afebrile tachycardic, still having short irregular runs of atrial tach noted on monitor, BP holding at 123/64, afebrile DuoNeb treatments, NG tube clamped for medications labs ordered: Protein corrected calcium, mag, phosphorus level Initial Bilateral subdural hygromas, Left forehead laceration and racoon bruising left eye Neurosurgery input appreciated, moved to the intensive care setting, patient continues to decline Patient lethargic, minimal response to sternal rub, tachypnea respirations Possible New onset seizure versus tremors, Hallicat called, initially on neurology input No obvious seizure activity noted on EEG. Being followed daily per neurology, despite aggressive care patient continues to decline, continue cerebyx injections Patient had multiple scans done which included head and neck CTA, no obvious acute changes noted, chest x-ray did show some mild interstitial edema, CT of the head showed no significant changes Sepsis, new fever, leukocytosis, unspecified Recurrent UTI, chronic indwelling catheter. Urine culture positive for Enterobacter cloacae, Klebsiella oxytoca ESBL positive. ID input appreciated PICC line present, chest x-ray does show some mild interstitial changes, vancomycin added Type 2 diabetes Accu-Cheks before meals and at bedtime with insulin therapy Hypertension, hyperlipidemia diabetes type 2 monitored for their stability stable Continuous ECG monitoring in the ICU setting SCDs for DVT prophylaxis, avoid anticoagulation Patient's generalized condition continues to deteriorate, Last week palliative care team has been working with and family who wanted to give him one last chance this past week Currently no family here today, but great deal of time spent yesterday support patient and family members DNR status remains otherwise full aggressive care Keep in ICU for now, pt. is DNR but full active treatment No family present Discussed with nurse Discussed with Dr. Greenwood, seen on his behalf (Taylor Cm) Assessment/Plan Patient seen and examined as above Labs reviewed Radiological data reviewed Medications reviewed Discussed with RN Plan of care discussed with BOAT CANVAS INSTALLER Discussed with family including son and [id number] at bedside in detail about end-of-life care. All questions answered in detail fashion. Patient is DNR. As per she will okay to try BiPAP if needed and on BiPAP she will decide whether to continue or discontinue it. Potassium replacement Labs for tomorrow Total time spent more than 45 minutes in management and discussion with family members at bedside (Radhames Greenwood MD) Taylor Cm Nov 28, 2016 13:51 Radhames Greenwood MD Nov 28, 2016 14:27
[2016-11-28] MEDS ORDERED: ICU - CALL ORDERING PHYSICIAN PRN (14:00)
[2016-11-28] MEDS ORDERED: ICU - MAGNESIUM SULFATE 2 GM/NS 100 ML IV PRN ×2 (14:00)
[2016-11-28] MEDS ORDERED: ICU - POTASSIUM PHOSPHATE 30 MMOL/NS 250 ML IV PRN ×2 (14:00)
[2016-11-28] MEDS ORDERED: ICU - MAGNESIUM SULFATE 4 GM/NS 100 ML IV PRN ×2 (14:00)
[2016-11-28] MEDS ORDERED: ICU - POTASSIUM CHLORIDE/AQUEOUS SOLN 20 MEQ/100 ML IVPB IV PRN (14:00)
[2016-11-28] MEDS ORDERED: ICU - SODIUM PHOSPHATE 30 MMOL/NS 250 ML IV PRN ×2 (14:00)
[2016-11-28] MEDS ORDERED: ICU - POTASSIUM PHOSPHATE MONOBASIC 500 MG TAB PO PRN (14:00)
[2016-11-28] MEDS ORDERED: ICU - MAGNESIUM OXIDE 400 MG TAB PO PRN (14:00)
[2016-11-28] MEDS ORDERED: ICU - D/C ICU ELECTROLYTE ORDERS PRN (14:00)
[2016-11-28] MEDS ORDERED: POTASSIUM CHLORIDE 25 MEQ EFFERVESCENT TAB PO PRN (14:00)
[2016-11-28 14:43] LABS: MAGNESIUM 1.8 MG/DL (1.5-2.5)
[2016-11-28 14:44] LABS: CALCIUM-PROTEIN CORRECTED 8.6 MG/DL (8.5-10.1)
[2016-11-28] MEDS: ICU - POTASSIUM CHLORIDE/AQUEOUS SOLN 40 MEQ/100 ML IVPB IV PRN (14:52)
[2016-11-28] MEDS: ERTAPENEM INJ 1,000 MG in SODIUM CHLORIDE 0.9% INJ 100 ML IV SCH (16:02)
[2016-11-28] MEDS: POLYETHYLENE GLYCOL 17 GM PKG PO SCH (19:47)
[2016-11-29] VITALS (12 sets, daily range): BP systolic 111–140; BP diastolic 58–83; PULSE 91–106; RESP 24–30; TEMP 98.6–99.4; O2SAT 98–100
[2016-11-29] MEDS: HYOSCYAMINE SOLN 0.125 MG/ML 15 ML BTL PO PRN ×3 (00:14→15:40)
[2016-11-29] MEDS: levETIRAcetam 1000 MG INJ 100 ML IV SCH ×2 (04:18→15:39)
[2016-11-29] MEDS: FOSPHENYTOIN SODIUM 100 MG PE/2 ML VIAL IV SCH ×3 (04:18→12:57)
[2016-11-29] MEDS: INSULIN ASPART SUPPLEMENTAL SCALE SQ SCH ×4 (05:13→19:50)
[2016-11-29 06:54] LABS: HEMATOCRIT 35.9 % (39.0-51.0); MEAN CELL VOLUME 85.5 FL (80.0-100.0); MEAN CORPUSCULAR HEMOGLOBIN 27.5 PG (27.0-34.0); MEAN CORPUSCULAR HGB CONC 32.2 % (32.0-36.0); PLATELET COUNT 367 TH/MM3 (150-450); RED BLOOD COUNT 4.19 MIL/MM3 (4.50-5.90); RED CELL DISTRIBUTION WIDTH 15.3 % (11.6-17.2); REVIEW FLAG FINAL; WHITE BLOOD COUNT 19.9 TH/MM3 (4.0-11.0)
[2016-11-29] MEDS: RESP: ALBUTEROL 2.5 MG/IPRATROPIUM 0.5 MG NEB (SCH) NEB (07:11)
[2016-11-29] MEDS: MAGNESIUM OXIDE 400 MG TAB PO SCH (07:30)
[2016-11-29] MEDS: DOCUSATE SODIUM 100 MG CAP PO SCH ×2 (07:30→19:50)
[2016-11-29] MEDS: METOCLOPRAMIDE HCL 10 MG TAB PO SCH ×3 (07:30→15:40)
[2016-11-29] MEDS: PRAVASTATIN SOD 20 MG TAB PO SCH (07:30)
[2016-11-29] MEDS: FAMOTIDINE 20 MG TAB PO SCH (07:30)
[2016-11-29] MEDS: VENLAFAXINE HCL XR 75 MG CAP PO SCH (07:31)
[2016-11-29] MEDS: METOPROLOL TARTRATE 25 MG TAB PO SCH ×2 (07:32→19:50)
[2016-11-29] MEDS: LISINOPRIL 5 MG TAB PO SCH (07:32)
[2016-11-29 07:57] LABS: BICARBONATE 26.5 MEQ/L (21.0-32.0); POTASSIUM 3.3 MEQ/L (3.5-5.1)
[2016-11-29] MEDS: POTASSIUM CHLOR 20 MEQ PREMIX 100 ML IV SCH ×2 (09:00→10:00)
[2016-11-29] MEDS: ICU - POTASSIUM CHLORIDE/AQUEOUS SOLN 40 MEQ/100 ML IVPB IV PRN (09:59)
[2016-11-29] MEDS: SODIUM CHLOR 0.45% 1000 ML INJ 1,000 ML IV SCH ×2 (10:19→20:23)
--- NOTE | 2016-11-29 13:34 | HHI.PR ---
Subjective Subjective Remarks Eyes closed, lethargic, moans tachypnea, O 2 per mask, 35% NG tube clamped for meds no family now (Taylor Cm) Review of Systems Constitutional Constitutional Remarks moans (Taylor Cm) Vitals/Results Intake & Output 11/29/16 11/29/16 11/30/16 15:00 23:00 07:00 Intake Total 399 ml Balance 399 ml IV Total 399 ml Vital Signs Vital Signs Date Time Temp Pulse Resp B/P (MAP) Pulse Ox O2 Delivery O2 Flow Rate FiO2 11/29/16 10:00 91 11/29/16 08:00 98.9 106 24 121/83 (96) 98 11/29/16 08:00 106 11/29/16 07:11 100 Venturi Mask 6.00 40 11/29/16 06:00 100 11/29/16 04:00 100 11/29/16 04:00 98.9 101 27 140/79 (99) 100 11/29/16 00:00 99.3 103 27 111/60 (77) 100 11/29/16 00:00 100 11/28/16 22:00 100 11/28/16 20:08 98 Nasal Cannula 4.00 11/28/16 20:00 98.9 99 27 112/63 (79) 100 11/28/16 20:00 101 11/28/16 18:00 106 11/28/16 16:00 99.2 104 29 123/58 (79) 11/28/16 16:00 104 11/28/16 14:00 96 (Taylor Cm) CBC/BMP: 11/29/16 0600 11/29/16 0600 Lab Results Laboratory Tests Test 11/29/16 06:00 White Blood Count 19.9 TH/MM3 Red Blood Count 4.19 MIL/MM3 Hemoglobin 11.5 GM/DL Hematocrit 35.9 % Mean Corpuscular Volume 85.5 FL Mean Corpuscular Hemoglobin 27.5 PG Mean Corpuscular Hemoglobin Concent 32.2 % Red Cell Distribution Width 15.3 % Platelet Count 367 TH/MM3 Mean Platelet Volume 8.9 FL Blood Urea Nitrogen 22 MG/DL Creatinine 0.85 MG/DL Random Glucose 160 MG/DL Calcium Level 7.7 MG/DL Sodium Level 146 MEQ/L Potassium Level 3.3 MEQ/L Chloride Level 111 MEQ/L Carbon Dioxide Level 26.5 MEQ/L Anion Gap 9 MEQ/L Estimat Glomerular Filtration Rate 87 ML/MIN B-Type Natriuretic Peptide 467 PG/ML Phenytoin (Dilantin) Level 10.0 MCG/ML (Toi,Susan M. VETERINARY ANATOMIST) Physical Exam General General Appearance: Sleeping (lethargic) Appearance Remarks Lethargic, moans (Taylor Cm. VETERINARY ANATOMIST) Eyes Eye Remarks PEARLA at 2mm, sluggish response (Taylor Cm M. VETERINARY ANATOMIST) Throat Throat Remarks Oropharynx very dry, respirations tachypnea, with pulling volume, mask was at 40 % now decreased to 35%, O2 sat 96 (Taylor Cm M. VETERINARY ANATOMIST) Neck Neck Exam: Neck Supple (Taylor Cm M. VETERINARY ANATOMIST) Pulmonary Resp Exam: Rhonchi (audible rhonchi upper airways), Decreased Bases, Diminished Breath Sounds, Poor Inspiratory Effort (Taylor Cm. VETERINARY ANATOMIST) Cardiology CV Exam: Regular (with PACs) (Taylor Cm M. VETERINARY ANATOMIST) Gastrointestinal/Abdomen GI Exam: Bowel Sounds Present (upper quadrants more active) GI Remarks NG tube clamp Rectal Anaya with brown liquid stool ([place],Susan M. VETERINARY ANATOMIST) Genitourinary Remarks Anaya catheter, dark yellow urine in bag (Taylor Cm M. VETERINARY ANATOMIST) Integumentary Skin Exam: Warm, Dry (Taylor Cm M. VETERINARY ANATOMIST) Extremeties Extremities Exam: Trace Edema (Taylor Cm M. VETERINARY ANATOMIST) Neurologic Neuro Exam: Stuporous Neuro Remarks Lethargic ([place],Susan M. VETERINARY ANATOMIST) Assessment/Plan Assessment/Plan Vital signs reviewed, temp 99.3 to 98.9 , heart rate now under 100, requiring oxygen per simple mask to maintain sats greater than 92, today oxygen levels have been between 35% and 40% DuoNeb treatments, NG tube clamped for medications labs ordered: Rectal Anaya with liquid diarrhea bowel regimen Initial Bilateral subdural hygromas, Left forehead laceration and racoon bruising left eye Neurosurgery input appreciated, moved to the intensive care setting, Patient lethargic, minimal response to sternal rub, tachypnea respirations Possible New onset seizure versus tremors, IV Celebrex on hold due to pharmacy unavailability, changed to Dilantin same dose 200 mg IV every 8, will work with pharmacy when Celebrex available again Sepsis, new fever, leukocytosis, unspecified Recurrent UTI, chronic indwelling catheter. Urine culture positive for Enterobacter cloacae, Klebsiella oxytoca ESBL positive. ID input appreciated PICC line present, audible rhonchi in chest, moans with respirations Type 2 diabetes Accu-Cheks before meals and at bedtime with insulin therapy Hypertension, hyperlipidemia diabetes type 2 monitored for their stability stable Continuous ECG monitoring in the ICU setting SCDs for DVT prophylaxis, avoid anticoagulation Patient's generalized condition continues to deteriorate, Patient's lung status continues to decline and requiring more oxygen now with mask between 35 and 40%. Plan is to maintain sat greater than 92 Family has spoken to Dr. Greenwood several times and is willing for BiPAP if needed. They may make further decisions if they cross that path Appreciate palliative care input Family here during my visit but spoke to nurse DNR status remains otherwise full aggressive care Keep in ICU for now, pt. is DNR but full active treatment , IV fluids decreased to 50 cc an hour half-normal saline, no seizure activity noted No family present Discussed with nurse Discussed with Dr. Greenwood, seen on his behalf (Taylor Cm) Assessment/Plan Patient was seen and examined yesterday with RN at bedside. Medications were reviewed Radiological data was reviewed Plan of care was discussed with VETERINARY ANATOMIST Plan of care also discussed with RN (Radhaems Greenwood MD) Taylor Cm Nov 29, 2016 13:34 Radhames Greenwood MD Nov 30, 2016 12:30
[2016-11-29] MEDS: PHENYTOIN INJ 100 MG/2 ML VIAL IV SCH ×2 (13:54→22:00)
[2016-11-29] MEDS: ERTAPENEM INJ 1,000 MG in SODIUM CHLORIDE 0.9% INJ 100 ML IV SCH (15:39)
--- NOTE | 2016-11-29 19:32 | HHI.HCPN ---
Reason for visit a. To assist with evaluation and management of symptoms including: pain, confusion, dyspnea. b. To assist medical decision maker(s) with: better understanding of current medical conditions; weighing benefits/burdens of medical treatment options; making medical treatment decisions. . (Mona Ybarra) Subjective/Interval History I was asked by nurse to come to speak with /family. She reports family is distressed today as patient is opening his eyes. He has not made any other significant neurologic or clinical improvement. Patient seen and examined in ICU. , son and DIL at bedside. Tmax 99.4. HR 90 -110. BP stable. WBC increased to 19.9. BNP 467. MRI brain was cancelled by Dr. Shah. Patient with eyes open, not consistently tracking. No intelligible words. Not following commands. Remains on oxygen via mask. He appears with mildly labored respirations using accessory muscles. Family/friend interactions Spoke with , son and DIL in [place] for about 45 minutes.Mrs. Sims seems to be struggling with transition to comfort measures now that the patient eyes are open. Lengthy conversation regarding comfort measures vs continued aggressive care. She will speak with family and think about our conversation. She is leaning toward comfort but remains a little uncertain stating I don't want to take away his chance if he can pull through again. She verbalizes his ongoing decline. She asks if I can talk to her again tomorrow, which I agreed. . (Mona Ybarra) Advance Directives Living Will: Completed, but not made available Health Care Surrogate: Copy in medical record (Mona Ybarra) Advance Directive Specifics Date completed: 02/23/2007 . Health Care Surrogate(s): Patient admitted his , Radha Sims, as his healthcare surrogate decision maker. His son, Mihai Sims, is designated as the alternate health care decision maker. . Documented care wishes: Patient has completed a living will. Family will attempt to find the document and bring it to the family meeting planned for tomorrow 11/23/2016 . Significant change in goals: NO CODE. Continue current level of care. is not yet ready to transition to comfort. . (Mona Ybarra) Objective Vital Signs Date Time Temp Pulse Resp B/P (MAP) Pulse Ox O2 Delivery O2 Flow Rate FiO2 11/29/16 18:00 104 11/29/16 16:00 98.9 98 27 123/58 (79) 100 11/29/16 16:00 98 11/29/16 14:00 95 11/29/16 12:00 95 11/29/16 12:00 99.4 95 30 111/60 (77) 100 11/29/16 10:00 91 11/29/16 08:00 98.9 106 24 121/83 (96) 98 11/29/16 08:00 106 11/29/16 07:11 100 Venturi Mask 6.00 40 11/29/16 06:00 100 11/29/16 04:00 100 11/29/16 04:00 98.9 101 27 140/79 (99) 100 11/29/16 00:00 99.3 103 27 111/60 (77) 100 11/29/16 00:00 100 11/28/16 22:00 100 11/28/16 20:08 98 Nasal Cannula 4.00 11/28/16 20:00 98.9 99 27 112/63 (79) 100 11/28/16 20:00 101 Physical Exam CONSTITUTIONAL/GENERAL: This is a frail, elderly male in no apparent distress. TUBES/LINES/DRAINS: Anaya catheter, PIV 1, nasal cannula SKIN: No jaundice, rashes, or lesions. Ecchymoses on upper extremities and left eye. No wounds seen anteriorly. Skin temperature appropriate. Not diaphoretic. EYES: Pupils equal and round and reactive. NECK: Trachea midline. Supple, nontender. No palpable thyroid enlargement or nodularity. CARDIOVASCULAR: Regular rate and rhythm without murmurs, gallops, or rubs. No JVD. Peripheral pulses symmetric. RESPIRATORY/CHEST: Symmetric, unlabored respirations. Breath sounds diminished bilaterally; worse air exchange GASTROINTESTINAL: Abdomen soft, non-tender, rounded. Hypoactive bowel sounds. GENITOURINARY: Without palpable bladder distension. MUSCULOSKELETAL: Extremities without clubbing, cyanosis, or edema. No mottling or clubbing. NEUROLOGICAL: Eyes open, not tracking. Patient is stuporous. Non verbal, does not follow commands. Withdraws bilateral lower extremities PSYCHIATRIC: Unable to assess secondary to patient's clinical condition. . (Mona Ybarra) Diagnostic Tests Laboratory Laboratory Tests Test 11/27/16 04:19 11/28/16 04:27 11/28/16 11:57 11/29/16 06:00 Albumin 2.3 GM/DL (3.4-5.0) Phenytoin (Dilantin) Level 3.5 MCG/ML (10.0-20.0) 7.0 MCG/ML (10.0-20.0) 10.0 MCG/ML (10.0-20.0) White Blood Count 16.8 TH/MM3 (4.0-11.0) 19.9 TH/MM3 (4.0-11.0) Red Blood Count 4.29 MIL/MM3 (4.50-5.90) 4.19 MIL/MM3 (4.50-5.90) Hemoglobin 11.6 GM/DL (13.0-17.0) 11.5 GM/DL (13.0-17.0) Hematocrit 36.7 % (39.0-51.0) 35.9 % (39.0-51.0) Mean Corpuscular Volume 85.4 FL (80.0-100.0) 85.5 FL (80.0-100.0) Mean Corpuscular Hemoglobin 27.0 PG (27.0-34.0) 27.5 PG (27.0-34.0) Mean Corpuscular Hemoglobin Concent 31.6 % (32.0-36.0) 32.2 % (32.0-36.0) Red Cell Distribution Width 15.2 % (11.6-17.2) 15.3 % (11.6-17.2) Platelet Count 379 TH/MM3 (150-450) 367 TH/MM3 (150-450) Mean Platelet Volume 8.5 FL (7.0-11.0) 8.9 FL (7.0-11.0) Neutrophils (%) (Auto) 85.3 % (16.0-70.0) Lymphocytes (%) (Auto) 7.2 % (9.0-44.0) Monocytes (%) (Auto) 6.0 % (0.0-8.0) Eosinophils (%) (Auto) 0.8 % (0.0-4.0) Basophils (%) (Auto) 0.7 % (0.0-2.0) Neutrophils # (Auto) 14.3 TH/MM3 (1.8-7.7) Lymphocytes # (Auto) 1.2 TH/MM3 (1.0-4.8) Monocytes # (Auto) 1.0 TH/MM3 (0-0.9) Eosinophils # (Auto) 0.1 TH/MM3 (0-0.4) Basophils # (Auto) 0.1 TH/MM3 (0-0.2) CBC Comment DIFF FINAL Differential Comment Blood Urea Nitrogen 20 MG/DL (7-18) 22 MG/DL (7-18) Creatinine 0.65 MG/DL (0.60-1.30) 0.85 MG/DL (0.60-1.30) Random Glucose 136 MG/DL (74-106) 160 MG/DL (74-106) Calcium Level 7.7 MG/DL (8.5-10.1) 7.7 MG/DL (8.5-10.1) Sodium Level 145 MEQ/L (136-145) 146 MEQ/L (136-145) Potassium Level 2.8 MEQ/L (3.5-5.1) 3.3 MEQ/L (3.5-5.1) Chloride Level 108 MEQ/L (98-107) 111 MEQ/L (98-107) Carbon Dioxide Level 27.6 MEQ/L (21.0-32.0) 26.5 MEQ/L (21.0-32.0) Anion Gap 9 MEQ/L (5-15) 9 MEQ/L (5-15) Estimat Glomerular Filtration Rate 118 ML/MIN (>89) 87 ML/MIN (>89) Protein Corrected Calcium 8.6 MG/DL (8.5-10.1) Phosphorus Level 2.5 MG/DL (2.5-4.9) Magnesium Level 1.8 MG/DL (1.5-2.5) Total Protein 5.4 GM/DL (6.4-8.2) B-Type Natriuretic Peptide 467 PG/ML (0-100) (Mona Ybarra) Result Diagram: 11/29/16 0600 11/29/16 0600 Microbiology Microbiology Date/Time Source Procedure Growth Status 11/26/16 17:06 Blood Peripheral Aerobic Blood Culture - Preliminary NO GROWTH IN 3 DAYS Resulted 11/26/16 17:06 Blood Peripheral Anaerobic Blood Culture - Preliminary NO GROWTH IN 3 DAYS Resulted 11/18/16 09:27 Urine Catheterized Urine Urine Culture - Final Klebsiella Oxytoca Esbl Pos Complete Imaging Last Impressions Neck CTA 11/26/16307 Signed Impressions: Service Date/Time: Saturday, November 26, 2016 03:33 - CONCLUSION: 1. Calcified plaque in the origin of the internal carotid arteries bilaterally with resultant 45-50%% stenosis on the right and 20%% stenosis on the left. 2. Patent bilateral vertebral arteries. 3. Moderate to large left pleural effusion. 4. 2.2 cm right thyroid nodule. Selvin Bernstein MD Head CTA 11/26/16307 Signed Impressions: Service Date/Time: Saturday, November 26, 2016 03:33 - CONCLUSION: 1. Unremarkable CTA examination without evidence for intracranial large vessel occlusion or stenosis. Selvin Bernstein MD Head CT 11/26/16 0000 Signed Impressions: Service Date/Time: Saturday, November 26, 2016 03:27 - CONCLUSION: 1. 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 2. Stable right CELL CHANGER shunt catheter with stable ventricular size and small amount of intraventricular blood products. 3. Otherwise, no significant interval change. Selvin Bernstein MD Chest X-Ray 11/26/16 0000 Signed Impressions: Service Date/Time: Saturday, November 26, 2016 13:20 - CONCLUSION: Interval development of bilateral mixed interstitial and alveolar process could represent pulmonary edema. Melissa Parker MD Maxillofacial CT 11/18/1637 Signed Impressions: Service Date/Time: October 07:44 - CONCLUSION: 1. There is extraconal air within the left orbit with periorbital soft tissue swelling. I' m not clearly able to see a fracture on this study that is slightly limited by motion artifact but I suspect there is an orbital floor fracture without entrapment. Karsten Bledsoe Jr., MD Cervical Spine CT 11/18/1637 Signed Impressions: Service Date/Time: October 07:44 - CONCLUSION: 1. No fracture or dislocation. 2. Degenerative changes. 3. Calcified plaque involving the carotid arteries. Karsten Bledsoe Jr., MD (Mona Ybarra) Assessment and Plan Disease Oriented Problem List: (1) Altered mental status, unspecified (2) UTI (3) Facial laceration (4) Fracture of orbital wall (5) Chronic indwelling Anaya catheter (6) NPH (normal pressure hydrocephalus) (7) Diabetes (8) BPH (benign prostatic hyperplasia) (9) Diabetes mellitus type 2, uncontrolled (10) Hyperlipidemia (11) Hypertension (12) Acute kidney injury Symptom Scale: (1) Confusion 0-10 Scale: Unable to quantify (2) Debility 0-10 Scale: Unable to quantify (3) Dyspnea 0-10 Scale: Unable to quantify (4) Dysphagia 0-10 Scale: Unable to quantify Pertinent Non-Medical Issues Psychosocial: Spoke with patient via telephone and was directed to call her son (Mihai) to coordinate any family meetings. Spoke with patient's son and [id number] (Mihai and Alba) via telephone for >1 hour. Discussed patient's current clinical condition, overall decline and prognosis. Questions answered to the best of my ability. Tentative family meeting scheduled for tomorrow 11/23/2016 at 1 PM. Spiritual: Yarsani maxine Legal: Patient admitted his , Radha Sims, as his healthcare surrogate decision maker. His son, Mihai Smis, is designated as the alternate health care decision maker. Ethical issues impacting care: No known ethical issues impacting care at this time . Important Contacts Alla Sims, : [phone] or [phone] Mihai Sims, son: [phone] . Prognosis Patient is an 81-year-old male with a complex medical history who has experienced an acute decline over the past year. Family states in the past 12 months, he has spent more time in the hospital or SNF benefit home in the past 12 months. Experiencing decreased mentation and dysphasia in addition to significant deconditioning. Clinically deteriorating, more obtunded with new onset seizures. Patient has certainly hospice appropriate, his overall prognosis is quite poor. . Code Status: No Code Plan * NO CODE-DNR/DNI * Decision-making: Patient admitted his , Radha Sims, as his healthcare surrogate decision maker. His son, Mihai Sims, is designated as the alternate health care decision maker. Patient's wishes to make all decisions in conjunction with her son, Mihai. * Goals remain aggressive up to the point of cardiopulmonary resuscitation, NO CODE (DNR/DNI). Considering transition to comfort, not quite ready. * Symptom management: = Confusion: Patient with some baseline dementia, now with acute change in mental status. NPH with CELL CHANGER shunt placement. Dr. Shah follows. Per Dr. Shah, patient has sustained a recent syncopal episode with secondary ischemic or hypoxic encephalopathy, possibly with further contribution of urosepsis/hypertension.He does have mild primarily frontoparietal subdural effusions noted on his most recent CT scan. A prior study will be located for comparison, but this is unlikely a cause of his present mental status changes. Patient is stuporous. Non verbal, does not follow commands. Withdraws bilateral lower extremities = Dysphagia: Tolerating tube feeding. = Debility: Significant deconditioning likely related to multiple co -morbid conditions in addition to recent acute decline; he has not improved after several months in an SNF with rehabilitation. * Palliative care will continue to follow this patient to establish trust, provide ongoing support and education. . (Mona Ybarra) Attestation To help prompt me to consider important information that might be impacting today's encounter and assessment, information from prior notes written by myself or my colleagues may have been "brought forward" into today's note. My signature on this note, however, is an attestation that I personally performed the exam, history, and/or decision-making noted today, and, unless otherwise indicated, the interactions with patient, family, and staff as well as the review of records all occurred today. I also attest that the listed assessment and stated plan reflect my best clinical judgment today based on the combination of historical information, prior notes, and today's exam/ interactions. When time spent is documented, it refers only to time spent today by the signer, or if indicated, combined time spent today by collaborating physician/nurse practitioner. (Mona Ybarra) Collaborating MD Comments Chart reviewed. Case discussed with palliative care [employer]. Above note reviewed and I concur. . (Tyson Murillo MD) Mona Ybarra Nov 29, 2016 19:32 Tyson Murillo MD Dec 26, 2016 11:28
[2016-11-29] MEDS: POLYETHYLENE GLYCOL 17 GM PKG PO SCH (19:50)
[2016-11-30] VITALS (15 sets, daily range): BP systolic 101–131; BP diastolic 57–79; PULSE 91–107; RESP 23–29; TEMP 98.7–100; O2SAT 93–100
[2016-11-30] MEDS: levETIRAcetam 1000 MG INJ 100 ML IV SCH ×2 (02:28→15:36)
[2016-11-30] MEDS: PHENYTOIN INJ 100 MG/2 ML VIAL IV SCH ×3 (04:29→21:20)
[2016-11-30] MEDS: INSULIN ASPART SUPPLEMENTAL SCALE SQ SCH ×4 (05:12→19:11)
[2016-11-30] MEDS: METOPROLOL TARTRATE 25 MG TAB PO SCH ×2 (09:15→19:18)
[2016-11-30] MEDS: FAMOTIDINE 20 MG TAB PO SCH (09:16)
[2016-11-30] MEDS: MAGNESIUM OXIDE 400 MG TAB PO SCH (09:16)
[2016-11-30] MEDS: VENLAFAXINE HCL XR 75 MG CAP PO SCH (09:16)
[2016-11-30] MEDS: LISINOPRIL 5 MG TAB PO SCH (09:17)
[2016-11-30] MEDS: DOCUSATE SODIUM 100 MG CAP PO SCH ×2 (09:17→19:18)
[2016-11-30] MEDS: PRAVASTATIN SOD 20 MG TAB PO SCH (09:17)
[2016-11-30] MEDS: METOCLOPRAMIDE HCL 10 MG TAB PO SCH ×3 (09:22→15:42)
--- NOTE | 2016-11-30 14:24 | HHI.PR ---
Subjective Subjective Remarks Eyes closed, but opened them several times to voice squeezed rt. hand for and myself on command O 2 per mask, 35%, audible rhonchi, random weak cough and son here. (Taylor Cm) Review of Systems Constitutional Constitutional Remarks Unable to reviewed systems with patient (Taylor Cm) Vitals/Results Vital Signs Vital Signs Date Time Temp Pulse Resp B/P (MAP) Pulse Ox O2 Delivery O2 Flow Rate FiO2 11/30/16 12:00 93 11/30/16 10:00 93 11/30/16 08:00 99.6 107 28 131/70 (90) 97 11/30/16 08:00 107 11/30/16 06:00 103 11/30/16 04:00 103 11/30/16 04:00 98.7 101 27 128/79 (95) 100 11/30/16 02:00 103 11/30/16 01:00 93 Venturi Mask 6.00 35 11/30/16 00:00 98.9 99 27 129/62 (84) 100 11/30/16 00:00 98.9 99 27 129/62 (84) 100 11/30/16 00:00 103 11/29/16 22:00 103 11/29/16 20:00 103 11/29/16 20:00 98.7 103 27 124/62 (82) 100 11/29/16 18:00 104 11/29/16 16:00 98.9 98 27 123/58 (79) 100 11/29/16 16:00 98 (Taylor Cm) CBC/BMP: 11/29/16 0600 11/29/16 0600 Lab Results Laboratory Tests Test 11/30/16 04:20 Phenytoin (Dilantin) Level 8.9 MCG/ML Current Medications Administered Medications Medications (Trade) Dose Ordered Sig/Robert Route PRN Reason Start Time Stop Time Status Last Admin Dose Admin Acetaminophen (Tylenol) 650 mg Q4H PRN PO FEVER 11/18/16 11:00 11/20/16 20:55 Docusate Sodium (Colace) 100 mg BID PO 11/18/16 21:00 11/30/16 09:17 Magnesium Oxide (Mag-Ox) 400 mg DAILY PO 11/19/16 09:00 11/30/16 09:16 Metoclopramide HCl (Reglan) 5 mg TIDAC PO 11/18/16 12:00 11/30/16 12:40 Polyethylene Glycol (Miralax) 17 gm HS PO 11/18/16 21:00 11/29/16 19:50 Venlafaxine HCl (Effexor Xr) 150 mg DAILY PO 11/19/16 09:00 11/30/16 09:16 Lisinopril (Prinivil) 2.5 mg DAILY PO 11/19/16 09:00 11/30/16 09:17 Famotidine (Pepcid) 20 mg DAILY PO 11/19/16 09:00 11/30/16 09:16 Pravastatin Sodium (Pravachol) 20 mg DAILY PO 11/19/16 09:00 11/30/16 09:17 Metoprolol Tartrate (Lopressor) 25 mg Q12HR PO 11/18/16 21:00 11/30/16 09:15 Insulin Aspart (NovoLOG SUPPLEMENTAL SCALE) 1 ACHS SLIDING SCALE SQ 11/18/16 16:00 11/30/16 05:12 Ertapenem 1000 mg/ Sodium Chloride 100 ml @ 200 mls/hr Q24H IV 11/20/16 17:00 11/29/16 15:39 Acetaminophen (Tylenol Supp) 650 mg Q4H PRN RECTAL FEVER 11/25/16 21:45 11/25/16 22:00 Levetriacetam 100 ml @ 400 mls/hr Q12H IV 11/26/16 04:00 11/30/16 02:28 Fosphenytoin Sodium (Cerebyx Inj) 200 mgpe Q8HR IV 11/27/16 22:00 Future Hold 11/29/16 12:57 Hyoscyamine Sulfate (Levsin Liq) 0.125 mg Q4H PRN PO INCREASED SECRETIONS 11/28/16 11:15 11/29/16 15:40 Potassium Chloride 100 ml @ 25 mls/hr UNSCH PRN IV ELECTROLYTE REPLACEMENT 11/28/16 14:00 11/29/16 09:59 Sodium Chloride 1,000 ml @ 50 mls/hr Q20H IV 11/29/16 10:30 11/29/16 20:23 Phenytoin Sodium (Dilantin Inj) 200 mg Q8HR IV 11/29/16 14:00 11/30/16 14:28 (Tayolr CmP) Physical Exam General General Appearance: Sleeping (lethargic) Appearance Remarks eyes closed, but arouses to voice, non verbal (Taylor CmP) Eyes Eye Remarks PEARLA at 3mm, (Taylor CmP) Throat Throat Remarks Oropharynx very dry, respirations tachypnea random audible cough, mask 35%, O2 sat 99 (Taylor Cm GLASS MELT OPERATOR) Neck Neck Exam: Neck Supple (Taylor CmP) Pulmonary Resp Exam: Rhonchi (audible rhonchi upper airways), Decreased Bases, Diminished Breath Sounds, Poor Inspiratory Effort (Taylor Cm GLASS MELT OPERATOR) Cardiology CV Exam: Regular (with PACs) (Taylor CmP) Gastrointestinal/Abdomen GI Exam: Bowel Sounds Present (upper quadrants more active) GI Remarks NG tube clamp Rectal Anaya with brown liquid stool (Taylor Cm GLASS MELT OPERATOR) Genitourinary Remarks Anaya catheter, dark yellow urine in bag (Taylor CmP) Integumentary Skin Exam: Warm, Dry, Cool (extremities) (Taylor CmP) Extremeties Extremities Exam: Trace Edema Extremeties Remarks , Skin color extremely pale, SCDs on (Taylor Cm GLASS MELT OPERATOR) Neurologic Neuro Exam: Stuporous Neuro Remarks Lethargic but will arouse to verbal stimuli (Taylor Cm) Assessment/Plan Assessment/Plan Assessment/Plan Vital signs reviewed, temp 99.6, pulse 93-107, currently 98 sinus rhythm , no PACs noted during my exam DuoNeb treatments, Rectal Anaya with liquid diarrhea bowel regimen, small amounts K3.3 and treated on 11-29, check BMP pending Initial Bilateral subdural hygromas, Left forehead laceration and racoon bruising left eye, mild improvement to left eye Neurosurgery input appreciated, moved to the intensive care setting, Patient lethargic, minimal response to sternal rub, tachypnea respirations Possible New onset seizure versus tremors, IV Celebrex on hold due to pharmacy unavailability, changed to Dilantin same dose 200 mg IV every 8, will work with pharmacy when Celebrex available again Sepsis, new fever, leukocytosis, unspecified Recurrent UTI, chronic indwelling catheter. Urine culture positive for Enterobacter cloacae, Klebsiella oxytoca ESBL positive. ID input appreciated PICC line present, audible rhonchi in chest, moans with respirations, DuoNeb treatments every 4hr, still requiring O2 per mask at 35% Mental status is very weak and lethargic, but does respond to simple commands randomly. Seems to respond more to familiar voices Type 2 diabetes Accu-Cheks before meals and at bedtime with insulin therapy Hypertension, hyperlipidemia diabetes type 2 monitored for their stability stable Continuous ECG monitoring in the ICU setting SCDs for DVT prophylaxis, avoid anticoagulation Patient's lung status remains coarse rhonchi, O2 sat remains in the high 90s with 35%. Plan to wean if possible Appreciate palliative care input, personnel here for an update DNR status remains otherwise full aggressive care, is impressed with small response today. Still very hopeful for improvement. Would like to have up-to- date from Dr. Greenwood and Dr. Shah. Spoke with and son Discussed with nurse and palliative care Discussed with Dr. Greenwood, seen on his behalf (Taylor Cm) Assessment/Plan pt seen and examined as above labs reviewed meds reviewed dw pt's and son dw rn kayla leesp about plan of care labs for tomorrow leonardo neurology input (Radhames Greenwood MD) Taylor Cm Nov 30, 2016 14:24 Radhames Greenwood MD Nov 30, 2016 20:56
[2016-11-30] MEDS: HYOSCYAMINE SOLN 0.125 MG/ML 15 ML BTL PO PRN (15:59)
[2016-11-30] MEDS: ERTAPENEM INJ 1,000 MG in SODIUM CHLORIDE 0.9% INJ 100 ML IV SCH (16:04)
--- NOTE | 2016-11-30 17:40 | HHI.HCPN ---
Reason for visit a. To assist with evaluation and management of symptoms including: pain, confusion, dyspnea. b. To assist medical decision maker(s) with: better understanding of current medical conditions; weighing benefits/burdens of medical treatment options; making medical treatment decisions. . (Mona Ybarra) Subjective/Interval History Patient seen and examined in ICU. Son and DIL at bedside. Son reports is struggling with transitioning to comfort. She has reached out to her rastafari/ assistant at surgery for additional support. I explained she does not have to make any decision. My role is to support her and answer questions. He and his feel the patient is suffering and verbalize watching him like this. Tmax 100. HR 90-110. BP stable. No new labs or imaging. Patient with eyes closed. Nurse reports he is following some simple commands. He remains very weak. Facial grimacing and furrowed brow noted. Not speaking. Remains on oxygen via venturi mask. Respirations appear labored with abdominal muscle use. Weak cough noted. Continued need for NT suctioning per nurse. Mildly restless in bed. Unable to even reach hand to oxygen mask. Family/friend interactions Spoke with and other son at bedside when she arrived alter in the day. Questions answered. Offered support. Goals remain aggressive short of NO CODE for now. . (Mona Ybarra) Advance Directives Living Will: Completed, but not made available Health Care Surrogate: Copy in medical record (Mona Ybarra) Advance Directive Specifics Date completed: 02/23/2007 . Health Care Surrogate(s): Patient admitted his , Radha Sims, as his healthcare surrogate decision maker. His son, Mihai Sims, is designated as the alternate health care decision maker. . Documented care wishes: Patient has completed a living will. Family will attempt to find the document and bring it to the family meeting planned for tomorrow 11/23/2016 . Significant change in goals: NO CODE. Goals remain aggressive short of DNR/DNI for now. (Mona Ybarra) Objective Vital Signs Date Time Temp Pulse Resp B/P (MAP) Pulse Ox O2 Delivery O2 Flow Rate FiO2 11/30/16 14:00 98 11/30/16 12:00 100.0 93 23 123/64 (83) 100 11/30/16 12:00 93 11/30/16 10:00 93 11/30/16 08:00 99.6 107 28 131/70 (90) 97 11/30/16 08:00 107 11/30/16 06:00 103 11/30/16 04:00 103 11/30/16 04:00 98.7 101 27 128/79 (95) 100 11/30/16 02:00 103 11/30/16 01:00 93 Venturi Mask 6.00 35 11/30/16 00:00 98.9 99 27 129/62 (84) 100 11/30/16 00:00 98.9 99 27 129/62 (84) 100 11/30/16 00:00 103 11/29/16 22:00 103 11/29/16 20:00 103 11/29/16 20:00 98.7 103 27 124/62 (82) 100 11/29/16 18:00 104 Intake & Output 11/30/16 11/30/16 07:00 19:00 Intake Total 375 ml Output Total 700 ml Balance -325 ml Tube Feeding 375 ml Output Urine Total 425 ml Stool Total 275 ml Physical Exam CONSTITUTIONAL/GENERAL: This is a frail, elderly male in no apparent distress. TUBES/LINES/DRAINS: Venturi mask, NG, Anaya catheter,rectal tube, PIV. SKIN: No jaundice, rashes, or lesions. Ecchymoses on upper extremities and left eye. No wounds seen anteriorly. Skin temperature appropriate. Not diaphoretic. NECK: Trachea midline. CARDIOVASCULAR: Regular rate and rhythm without murmurs, gallops, or rubs. No JVD. Peripheral pulses symmetric. RESPIRATORY/CHEST: Symmetric, unlabored respirations. Breath sounds diminished bilaterally; worse air exchange GASTROINTESTINAL: Abdomen soft, non-tender, rounded. Hypoactive bowel sounds. GENITOURINARY: Without palpable bladder distension. MUSCULOSKELETAL: Extremities without clubbing, cyanosis, or edema. No mottling or clubbing. NEUROLOGICAL: Eyes open, not tracking. Patient is stuporous. Non verbal, does not follow commands. Withdraws bilateral lower extremities PSYCHIATRIC: Unable to assess secondary to patient's clinical condition. . (Mona Ybarra) Diagnostic Tests Laboratory Laboratory Tests Test 11/28/16 04:27 11/28/16 11:57 11/29/16 06:00 11/30/16 04:20 Phenytoin (Dilantin) Level 7.0 MCG/ML (10.0-20.0) 10.0 MCG/ML (10.0-20.0) 8.9 MCG/ML (10.0-20.0) White Blood Count 16.8 TH/MM3 (4.0-11.0) 19.9 TH/MM3 (4.0-11.0) Red Blood Count 4.29 MIL/MM3 (4.50-5.90) 4.19 MIL/MM3 (4.50-5.90) Hemoglobin 11.6 GM/DL (13.0-17.0) 11.5 GM/DL (13.0-17.0) Hematocrit 36.7 % (39.0-51.0) 35.9 % (39.0-51.0) Mean Corpuscular Volume 85.4 FL (80.0-100.0) 85.5 FL (80.0-100.0) Mean Corpuscular Hemoglobin 27.0 PG (27.0-34.0) 27.5 PG (27.0-34.0) Mean Corpuscular Hemoglobin Concent 31.6 % (32.0-36.0) 32.2 % (32.0-36.0) Red Cell Distribution Width 15.2 % (11.6-17.2) 15.3 % (11.6-17.2) Platelet Count 379 TH/MM3 (150-450) 367 TH/MM3 (150-450) Mean Platelet Volume 8.5 FL (7.0-11.0) 8.9 FL (7.0-11.0) Neutrophils (%) (Auto) 85.3 % (16.0-70.0) Lymphocytes (%) (Auto) 7.2 % (9.0-44.0) Monocytes (%) (Auto) 6.0 % (0.0-8.0) Eosinophils (%) (Auto) 0.8 % (0.0-4.0) Basophils (%) (Auto) 0.7 % (0.0-2.0) Neutrophils # (Auto) 14.3 TH/MM3 (1.8-7.7) Lymphocytes # (Auto) 1.2 TH/MM3 (1.0-4.8) Monocytes # (Auto) 1.0 TH/MM3 (0-0.9) Eosinophils # (Auto) 0.1 TH/MM3 (0-0.4) Basophils # (Auto) 0.1 TH/MM3 (0-0.2) CBC Comment DIFF FINAL Differential Comment Blood Urea Nitrogen 20 MG/DL (7-18) 22 MG/DL (7-18) Creatinine 0.65 MG/DL (0.60-1.30) 0.85 MG/DL (0.60-1.30) Random Glucose 136 MG/DL (74-106) 160 MG/DL (74-106) Calcium Level 7.7 MG/DL (8.5-10.1) 7.7 MG/DL (8.5-10.1) Sodium Level 145 MEQ/L (136-145) 146 MEQ/L (136-145) Potassium Level 2.8 MEQ/L (3.5-5.1) 3.3 MEQ/L (3.5-5.1) Chloride Level 108 MEQ/L (98-107) 111 MEQ/L (98-107) Carbon Dioxide Level 27.6 MEQ/L (21.0-32.0) 26.5 MEQ/L (21.0-32.0) Anion Gap 9 MEQ/L (5-15) 9 MEQ/L (5-15) Estimat Glomerular Filtration Rate 118 ML/MIN (>89) 87 ML/MIN (>89) Protein Corrected Calcium 8.6 MG/DL (8.5-10.1) Phosphorus Level 2.5 MG/DL (2.5-4.9) Magnesium Level 1.8 MG/DL (1.5-2.5) Total Protein 5.4 GM/DL (6.4-8.2) B-Type Natriuretic Peptide 467 PG/ML (0-100) (Mona Ybarra) Result Diagram: 11/29/16 0600 11/29/16 0600 Microbiology Microbiology Date/Time Source Procedure Growth Status 11/26/16 17:06 Blood Peripheral Aerobic Blood Culture - Preliminary NO GROWTH IN 4 DAYS Resulted 11/26/16 17:06 Blood Peripheral Anaerobic Blood Culture - Preliminary NO GROWTH IN 4 DAYS Resulted 11/18/16 09:27 Urine Catheterized Urine Urine Culture - Final Klebsiella Oxytoca Esbl Pos Complete Imaging Last Impressions Neck CTA 11/26/16307 Signed Impressions: Service Date/Time: Saturday, November 26, 2016 03:33 - CONCLUSION: 1. Calcified plaque in the origin of the internal carotid arteries bilaterally with resultant 45-50%% stenosis on the right and 20%% stenosis on the left. 2. Patent bilateral vertebral arteries. 3. Moderate to large left pleural effusion. 4. 2.2 cm right thyroid nodule. Selvin Bernstein MD Head CTA 11/26/16307 Signed Impressions: Service Date/Time: Saturday, November 26, 2016 03:33 - CONCLUSION: 1. Unremarkable CTA examination without evidence for intracranial large vessel occlusion or stenosis. Selvin Bernstein MD Head CT 11/26/16 Signed Impressions: Service Date/Time: Saturday, November 26, 2016 03:27 - CONCLUSION: 1. 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 2. Stable right MANAGER [employer] shunt catheter with stable ventricular size and small amount of intraventricular blood products. 3. Otherwise, no significant interval change. Selvin Bernstein MD Chest X-Ray 11/26/16 Signed Impressions: Service Date/Time: Saturday, November 26, 2016 13:20 - CONCLUSION: Interval development of bilateral mixed interstitial and alveolar process could represent pulmonary edema. Melissa Parker MD Maxillofacial CT 11/18/16736 Signed Impressions: Service Date/Time: October 07:44 - CONCLUSION: 1. There is extraconal air within the left orbit with periorbital soft tissue swelling. I' m not clearly able to see a fracture on this study that is slightly limited by motion artifact but I suspect there is an orbital floor fracture without entrapment. Karsten Bledsoe Jr., MD Cervical Spine CT 11/18/1637 Signed Impressions: Service Date/Time: October 07:44 - CONCLUSION: 1. No fracture or dislocation. 2. Degenerative changes. 3. Calcified plaque involving the carotid arteries. Karsten Bledsoe Jr., MD (Mona Ybarra) Assessment and Plan Disease Oriented Problem List: (1) Altered mental status, unspecified (2) UTI (3) Facial laceration (4) Fracture of orbital wall (5) Chronic indwelling Anaya catheter (6) NPH (normal pressure hydrocephalus) (7) Diabetes (8) BPH (benign prostatic hyperplasia) (9) Diabetes mellitus type 2, uncontrolled (10) Hyperlipidemia (11) Hypertension (12) Acute kidney injury Symptom Scale: (1) Confusion 0-10 Scale: Unable to quantify (2) Debility 0-10 Scale: Unable to quantify (3) Dyspnea 0-10 Scale: Unable to quantify (4) Dysphagia 0-10 Scale: Unable to quantify Pertinent Non-Medical Issues Psychosocial: Spoke with patient via telephone and was directed to call her son (Mihai) to coordinate any family meetings. Spoke with patient's son and [id number] (Mihai and Alba) via telephone for >1 hour. Discussed patient's current clinical condition, overall decline and prognosis. Questions answered to the best of my ability. Tentative family meeting scheduled for tomorrow 11/23/2016 at 1 PM. Spiritual: Restoration maxine Legal: Patient admitted his , Radha Sims, as his healthcare surrogate decision maker. His son, Mihai Sims, is designated as the alternate health care decision maker. Ethical issues impacting care: No known ethical issues impacting care at this time . Important Contacts Alla Sims, : [phone] or [phone] Mihai Sims, son: [phone] . Prognosis Patient is an 81-year-old male with a complex medical history who has experienced an acute decline over the past year. Family states in the past 12 months, he has spent more time in the hospital or SNF benefit home in the past 12 months. Experiencing decreased mentation and dysphasia in addition to significant deconditioning. Clinically deteriorating, more obtunded with new onset seizures. Patient has certainly hospice appropriate, his overall prognosis is quite poor. . Code Status: No Code Plan * NO CODE-DNR/DNI * Decision-making: Patient admitted his , Radha Sims, as his healthcare surrogate decision maker. His son, Mihai Sims, is designated as the alternate health care decision maker. Patient's wishes to make all decisions in conjunction with her son, Mihai. * Goals remain aggressive up to the point of cardiopulmonary resuscitation, NO CODE (DNR/DNI). Considering transition to comfort, not quite ready. * Symptom management: = Confusion: Patient with some baseline dementia, now with acute change in mental status. NPH with [employer] shunt placement. Dr. Shah follows. Per Dr. Shah, patient has sustained a recent syncopal episode with secondary ischemic or hypoxic encephalopathy, possibly with further contribution of urosepsis/hypertension.He does have mild primarily frontoparietal subdural effusions noted on his most recent CT scan. A prior study will be located for comparison, but this is unlikely a cause of his present mental status changes. Patient is stuporous. Non verbal, does not follow commands. Withdraws bilateral lower extremities = Dysphagia: Tolerating tube feeding. = Debility: Significant deconditioning likely related to multiple co -morbid conditions in addition to recent acute decline; he has not improved after several months in an SNF with rehabilitation. * Palliative care will continue to follow this patient to establish trust, provide ongoing support and education. . (Mona Ybarra) Attestation To help prompt me to consider important information that might be impacting today's encounter and assessment, information from prior notes written by myself or my colleagues may have been "brought forward" into today's note. My signature on this note, however, is an attestation that I personally performed the exam, history, and/or decision-making noted today, and, unless otherwise indicated, the interactions with patient, family, and staff as well as the review of records all occurred today. I also attest that the listed assessment and stated plan reflect my best clinical judgment today based on the combination of historical information, prior notes, and today's exam/ interactions. When time spent is documented, it refers only to time spent today by the signer, or if indicated, combined time spent today by collaborating physician/nurse practitioner. (Mona Ybarra) Collaborating MD Comments Chart reviewed. Case discussed with palliative care CUSTOMER MARKETING MANAGER. Above note reviewed and I concur. . (Tyson Murillo MD) Mona Ybarra Nov 30, 2016 17:39 Tyson Murillo MD Dec 26, 2016 11:47
[2016-11-30] MEDS: POLYETHYLENE GLYCOL 17 GM PKG PO SCH (19:18)
[2016-11-30] MEDS: SODIUM CHLOR 0.45% 1000 ML INJ 1,000 ML IV SCH (19:22)
--- NOTE | 2016-11-30 19:51 | HHI.PR ---
Review/Management Diagnosis/Plan: (1) Seizure cerebral ICD Codes: I67.89 - Other cerebrovascular disease Status: Acute Plan: appears to have new-onset sz likely 2/2 sdh iv keppra and iv cerebryx recs neuro unchanged in resp distress; apparently DNI/DNR dil 15.89 corrected eeg- no active sz's mri brain-cancelled palliative care following d/w rn (2) Acute encephalopathy ICD Codes: G93.40 - Encephalopathy, unspecified Status: Acute (3) Subdural hematoma, acute ICD Codes: I62.01 - Nontraumatic acute subdural hemorrhage Status: Acute (4) Nontraumatic brain injury ICD Codes: S06.890A - Other specified intracranial injury without loss of consciousness, initial encounter Status: Acute (5) NPH (normal pressure hydrocephalus) ICD Codes: G91.2 - Normal pressure hydrocephalus Status: Chronic (6) Frequent falls ICD Codes: R29.6 - Recurrent falls Status: Chronic Subjective Subjective Comments No acute events reported Active Medications Current Medications Medications (Trade) Dose Ordered Sig/Robert Route Start Time Stop Time Status Last Admin (NS Flush) 2 ml UNSCH PRN IVF 11/18/16 07:45 (Tylenol) 650 mg Q4H PRN PO 11/18/16 11:00 11/20/16 20:55 (Colace) 100 mg BID PO 11/18/16 21:00 11/30/16 19:18 (Mag-Ox) 400 mg DAILY PO 11/19/16 09:00 11/30/16 09:16 (Reglan) 5 mg TIDAC PO 11/18/16 12:00 11/30/16 15:42 (Miralax) 17 gm HS PO 11/18/16 21:00 11/30/16 19:18 (Effexor Xr) 150 mg DAILY PO 11/19/16 09:00 11/30/16 09:16 (Prinivil) 2.5 mg DAILY PO 11/19/16 09:00 11/30/16 09:17 (Pepcid) 20 mg DAILY PO 11/19/16 09:00 11/30/16 09:16 (Pravachol) 20 mg DAILY PO 11/19/16 09:00 11/30/16 09:17 (Lopressor) 25 mg Q12HR PO 11/18/16 21:00 11/30/16 19:18 (Zofran Inj) 4 mg Q8HR PRN IV PUSH 11/18/16 11:15 (D50w (Vial) Inj) 50 ml UNSCH PRN IV 11/18/16 11:15 (Glucagon Inj) 1 mg UNSCH PRN OTHER 11/18/16 11:15 (NovoLOG SUPPLEMENTAL SCALE) 1 ACHS SLIDING SCALE SQ 11/18/16 16:00 11/30/16 15:42 (Pill Splitter) 1 ea UNSCH PRN OTHER 11/18/16 11:30 Ertapenem 1000 mg/ Sodium Chloride 100 ml @ 200 mls/hr Q24H IV 11/20/16 17:00 11/30/16 16:04 (Vasotec Inj) 1.25 mg Q8H PRN IV PUSH 11/23/16 14:45 (Tylenol Supp) 650 mg Q4H PRN RECTAL 11/25/16 21:45 11/25/16 22:00 Levetriacetam 100 ml @ 400 mls/hr Q12H IV 11/26/16 04:00 11/30/16 15:36 (Cerebyx Inj) 200 mgpe Q8HR IV 11/27/16 22:00 Future Hold 11/29/16 12:57 (Levsin Liq) 0.125 mg Q4H PRN PO 11/28/16 11:15 11/30/16 15:59 Miscellaneous Information D/C ICU ELECTROLYTE ORDERS... UNSCH PRN .XX 11/28/16 14:00 Miscellaneous Information ICU - CALL ORDERING PHYSIC... UNSCH PRN .XX 11/28/16 14:00 Potassium Chloride 100 ml @ 25 mls/hr UNSCH PRN IV 11/28/16 14:00 11/29/16 09:59 (K-Lyte Cl Eff) 50 meq UNSCH PRN PO 11/28/16 14:00 Potassium Chloride 100 ml @ 50 mls/hr UNSCH PRN IV 11/28/16 14:00 Magnesium Sulfate 4 gm/Sodium Chloride 108 ml @ 54 mls/hr UNSCH PRN IV 11/28/16 14:00 Magnesium Sulfate 2 gm/Sodium Chloride 104 ml @ 52 mls/hr UNSCH PRN IV 11/28/16 14:00 (Mag-Ox) 800 mg UNSCH PRN PO 11/28/16 14:00 Sodium Phosphate 30 mmol/Sodium Chloride 260 ml @ 43.333 mls/ hr UNSCH PRN IV 11/28/16 14:00 (K-Phos) 2,000 mg UNSCH PRN PO 11/28/16 14:00 Potassium Phosphate 30 mmol/ Sodium Chloride 260 ml @ 43.333 mls/ hr UNSCH PRN IV 11/28/16 14:00 Sodium Chloride 1,000 ml @ 50 mls/hr Q20H IV 11/29/16 10:30 11/30/16 19:22 (Dilantin Inj) 200 mg Q8HR IV 11/29/16 14:00 11/30/16 14:28 Allergies Allergies Coded Allergies No Known Allergies (Unverified11/30/16) Review of Systems All other ROS: ROS reviewed as documented in chart Exam I&O / VS 11/30/16 11/30/16 12/01/16 15:00 23:00 07:00 Intake Total 634 ml Output Total 550 ml Balance 84 ml IV Total 200 ml Tube Feeding 434 ml Output Urine Total 550 ml Vital Signs Date Time Temp Pulse Resp B/P (MAP) Pulse Ox O2 Delivery O2 Flow Rate FiO2 11/30/16 18:14 98 Venturi Mask 3.00 31 11/30/16 18:00 100 11/30/16 16:00 99.9 96 29 105/57 (73) 98 11/30/16 16:00 96 11/30/16 14:00 98 11/30/16 12:00 100.0 93 23 123/64 (83) 100 11/30/16 12:00 93 11/30/16 10:00 93 11/30/16 08:00 99.6 107 28 131/70 (90) 97 11/30/16 08:00 107 11/30/16 06:00 103 11/30/16 04:00 103 11/30/16 04:00 98.7 101 27 128/79 (95) 100 11/30/16 02:00 103 11/30/16 01:00 93 Venturi Mask 6.00 35 11/30/16 00:00 98.9 99 27 129/62 (84) 100 11/30/16 00:00 98.9 99 27 129/62 (84) 100 11/30/16 00:00 103 11/29/16 22:00 103 11/29/16 20:00 103 11/29/16 20:00 98.7 103 27 124/62 (82) 100 Respiratory: Non-labored respirations Exam Comments on non-rebreather, +accessory muscle use, stuporous, non-verbal, not following, grimaces, open mouth breathing, limited ext withdrawal Objective Micro and Labs Laboratory Tests Test 11/30/16 04:20 Phenytoin (Dilantin) Level 8.9 Date/Time Source Procedure Growth Status 11/26/16 17:06 Blood Peripheral Aerobic Blood Culture - Preliminary NO GROWTH IN 4 DAYS Resulted 11/26/16 17:06 Blood Peripheral Anaerobic Blood Culture - Preliminary NO GROWTH IN 4 DAYS Resulted 11/18/16 09:27 Urine Catheterized Urine Urine Culture - Final Klebsiella Oxytoca Esbl Pos Complete Kory Morgan MD Nov 30, 2016 19:51
[2016-11-30 22:19] LABS: HEMATOCRIT 34.5 % (39.0-51.0); MEAN CELL VOLUME 85.7 FL (80.0-100.0); MEAN CORPUSCULAR HEMOGLOBIN 27.4 PG (27.0-34.0); MEAN CORPUSCULAR HGB CONC 31.9 % (32.0-36.0); PLATELET COUNT 341 TH/MM3 (150-450); RED BLOOD COUNT 4.03 MIL/MM3 (4.50-5.90); RED CELL DISTRIBUTION WIDTH 15.3 % (11.6-17.2); REVIEW FLAG FINAL; WHITE BLOOD COUNT 14.9 TH/MM3 (4.0-11.0)
[2016-11-30 22:41] LABS: BICARBONATE 29.4 MEQ/L (21.0-32.0); POTASSIUM 3.7 MEQ/L (3.5-5.1)
[2016-12-01] VITALS (15 sets, daily range): BP systolic 105–129; BP diastolic 61–71; PULSE 85–104; RESP 23–27; TEMP 98.2–99.8; O2SAT 96–100
[2016-12-01] MEDS: levETIRAcetam 1000 MG INJ 100 ML IV SCH ×2 (01:50→17:35)
[2016-12-01] MEDS: PHENYTOIN INJ 100 MG/2 ML VIAL IV SCH ×3 (04:41→22:22)
[2016-12-01] MEDS: INSULIN ASPART SUPPLEMENTAL SCALE SQ SCH ×5 (04:46→20:34)
[2016-12-01 07:29] LABS: HEMATOCRIT 35.9 % (39.0-51.0); MEAN CELL VOLUME 86.4 FL (80.0-100.0); MEAN CORPUSCULAR HEMOGLOBIN 27.6 PG (27.0-34.0); PLATELET COUNT 311 TH/MM3 (150-450); RED BLOOD COUNT 4.16 MIL/MM3 (4.50-5.90); RED CELL DISTRIBUTION WIDTH 15.7 % (11.6-17.2); REVIEW FLAG FINAL; WHITE BLOOD COUNT 13.9 TH/MM3 (4.0-11.0)
[2016-12-01 07:53] LABS: BICARBONATE 31.3 MEQ/L (21.0-32.0); POTASSIUM 3.7 MEQ/L (3.5-5.1)
[2016-12-01] MEDS: DOCUSATE SODIUM 100 MG CAP PO SCH ×2 (08:15→20:34)
[2016-12-01] MEDS: VENLAFAXINE HCL XR 75 MG CAP PO SCH (09:08)
[2016-12-01] MEDS: FAMOTIDINE 20 MG TAB PO SCH (09:08)
[2016-12-01] MEDS: PRAVASTATIN SOD 20 MG TAB PO SCH (09:09)
[2016-12-01] MEDS: MAGNESIUM OXIDE 400 MG TAB PO SCH (09:09)
[2016-12-01] MEDS: LISINOPRIL 5 MG TAB PO SCH (09:10)
[2016-12-01] MEDS: METOCLOPRAMIDE HCL 10 MG TAB PO SCH ×3 (09:10→17:52)
[2016-12-01] MEDS: METOPROLOL TARTRATE 25 MG TAB PO SCH ×2 (09:10→20:34)
--- NOTE | 2016-12-01 11:50 | HHI.HCPN ---
Reason for visit a. To assist with evaluation and management of symptoms including: pain, confusion, dyspnea. b. To assist medical decision maker(s) with: better understanding of current medical conditions; weighing benefits/burdens of medical treatment options; making medical treatment decisions. . (Mona Ybarra) Subjective/Interval History Patient seen and examined in ICU. Spoke with nurse. No family at bedside. Tmax 99.8. HR 90-105. BP stable. On oxygen via via venturi mask. Nurse reports patient pulled oxygen off and was saturating in the 90's. WBC 13.9. No new imaging. Patient with eyes closed. Intermittent furrowed brow and grimacing to voice or movement. Does not answer questions for me. Follows some simple commands per nurse. . Family/friend interactions No family at bedside. . (Mona Ybarra) Advance Directives Living Will: Completed, but not made available Health Care Surrogate: Copy in medical record (Mona Ybarra) Advance Directive Specifics Date completed: 02/23/2007 . Health Care Surrogate(s): Patient admitted his , Radha Sims, as his healthcare surrogate decision maker. His son, Mihai Sims, is designated as the alternate health care decision maker. . Documented care wishes: Patient has completed a living will. Family will attempt to find the document and bring it to the family meeting planned for tomorrow 11/23/2016 . Significant change in goals: NO CODE. Continue aggressive care short of NO CODE (DNR/DNI). . (Mona Ybarra) Objective Vital Signs Date Time Temp Pulse Resp B/P (MAP) Pulse Ox O2 Delivery O2 Flow Rate FiO2 12/01/16 10:00 85 12/01/16 08:00 99.8 103 26 129/67 (87) 96 12/01/16 08:00 104 12/01/16 07:10 99 Venturi Mask 6.00 31 12/01/16 06:00 97 12/01/16 04:00 98.7 94 27 119/62 (81) 100 12/01/16 04:00 94 12/01/16 02:00 91 12/01/16 00:00 91 12/01/16 00:00 98.9 91 27 105/61 (76) 100 11/30/16 22:00 91 11/30/16 20:00 99.3 96 29 101/64 (76) 98 11/30/16 20:00 97 11/30/16 19:49 96 Venturi Mask 31 11/30/16 18:14 98 Venturi Mask 3.00 31 11/30/16 18:00 100 11/30/16 16:00 99.9 96 29 105/57 (73) 98 11/30/16 16:00 96 11/30/16 14:00 98 11/30/16 12:00 100.0 93 23 123/64 (83) 100 11/30/16 12:00 93 Intake & Output 12/01/16 12/01/16 07:00 19:00 Intake Total 425 ml Output Total 625 ml Balance -200 ml Tube Feeding 425 ml Output Urine Total 550 ml Stool Total 75 ml Physical Exam CONSTITUTIONAL/GENERAL: This is a frail, elderly male in no apparent distress. TUBES/LINES/DRAINS: Venturi mask, NG, Anaya catheter, rectal tube, PIV. SKIN: No jaundice, rashes, or lesions. Ecchymoses on upper extremities and left eye. No wounds seen anteriorly. Skin temperature appropriate. Not diaphoretic. CARDIOVASCULAR: Regular rate and rhythm without murmurs, gallops, or rubs. RESPIRATORY/CHEST: Symmetric, unlabored respirations. Breath sounds diminished bilaterally; worse air exchange GASTROINTESTINAL: Abdomen soft, non-tender, rounded. Hypoactive bowel sounds. GENITOURINARY: Without palpable bladder distension. MUSCULOSKELETAL: Extremities without clubbing, cyanosis, or edema. No mottling or clubbing. NEUROLOGICAL: Eyes open, not tracking. Patient is stuporous. Non verbal, does not follow commands. Withdraws bilateral lower extremities PSYCHIATRIC: Unable to assess secondary to patient's clinical condition. . (Mona Ybarra) Diagnostic Tests Laboratory Laboratory Tests Test 11/28/16 11:57 11/29/16 06:00 11/30/16 04:20 11/30/16 20:23 White Blood Count 16.8 TH/MM3 (4.0-11.0) 19.9 TH/MM3 (4.0-11.0) 14.9 TH/MM3 (4.0-11.0) Red Blood Count 4.29 MIL/MM3 (4.50-5.90) 4.19 MIL/MM3 (4.50-5.90) 4.03 MIL/MM3 (4.50-5.90) Hemoglobin 11.6 GM/DL (13.0-17.0) 11.5 GM/DL (13.0-17.0) 11.0 GM/DL (13.0-17.0) Hematocrit 36.7 % (39.0-51.0) 35.9 % (39.0-51.0) 34.5 % (39.0-51.0) Mean Corpuscular Volume 85.4 FL (80.0-100.0) 85.5 FL (80.0-100.0) 85.7 FL (80.0-100.0) Mean Corpuscular Hemoglobin 27.0 PG (27.0-34.0) 27.5 PG (27.0-34.0) 27.4 PG (27.0-34.0) Mean Corpuscular Hemoglobin Concent 31.6 % (32.0-36.0) 32.2 % (32.0-36.0) 31.9 % (32.0-36.0) Red Cell Distribution Width 15.2 % (11.6-17.2) 15.3 % (11.6-17.2) 15.3 % (11.6-17.2) Platelet Count 379 TH/MM3 (150-450) 367 TH/MM3 (150-450) 341 TH/MM3 (150-450) Mean Platelet Volume 8.5 FL (7.0-11.0) 8.9 FL (7.0-11.0) 9.6 FL (7.0-11.0) Neutrophils (%) (Auto) 85.3 % (16.0-70.0) Lymphocytes (%) (Auto) 7.2 % (9.0-44.0) Monocytes (%) (Auto) 6.0 % (0.0-8.0) Eosinophils (%) (Auto) 0.8 % (0.0-4.0) Basophils (%) (Auto) 0.7 % (0.0-2.0) Neutrophils # (Auto) 14.3 TH/MM3 (1.8-7.7) Lymphocytes # (Auto) 1.2 TH/MM3 (1.0-4.8) Monocytes # (Auto) 1.0 TH/MM3 (0-0.9) Eosinophils # (Auto) 0.1 TH/MM3 (0-0.4) Basophils # (Auto) 0.1 TH/MM3 (0-0.2) CBC Comment DIFF FINAL Differential Comment Blood Urea Nitrogen 20 MG/DL (7-18) 22 MG/DL (7-18) 22 MG/DL (7-18) Creatinine 0.65 MG/DL (0.60-1.30) 0.85 MG/DL (0.60-1.30) 0.64 MG/DL (0.60-1.30) Random Glucose 136 MG/DL (74-106) 160 MG/DL (74-106) 161 MG/DL (74-106) Calcium Level 7.7 MG/DL (8.5-10.1) 7.7 MG/DL (8.5-10.1) 7.6 MG/DL (8.5-10.1) Sodium Level 145 MEQ/L (136-145) 146 MEQ/L (136-145) 143 MEQ/L (136-145) Potassium Level 2.8 MEQ/L (3.5-5.1) 3.3 MEQ/L (3.5-5.1) 3.7 MEQ/L (3.5-5.1) Chloride Level 108 MEQ/L (98-107) 111 MEQ/L (98-107) 107 MEQ/L (98-107) Carbon Dioxide Level 27.6 MEQ/L (21.0-32.0) 26.5 MEQ/L (21.0-32.0) 29.4 MEQ/L (21.0-32.0) Anion Gap 9 MEQ/L (5-15) 9 MEQ/L (5-15) 7 MEQ/L (5-15) Estimat Glomerular Filtration Rate 118 ML/MIN (>89) 87 ML/MIN (>89) 120 ML/MIN (>89) Protein Corrected Calcium 8.6 MG/DL (8.5-10.1) Phosphorus Level 2.5 MG/DL (2.5-4.9) Magnesium Level 1.8 MG/DL (1.5-2.5) Total Protein 5.4 GM/DL (6.4-8.2) B-Type Natriuretic Peptide 467 PG/ML (0-100) Phenytoin (Dilantin) Level 10.0 MCG/ML (10.0-20.0) 8.9 MCG/ML (10.0-20.0) Test 12/01/16 05:29 White Blood Count 13.9 TH/MM3 (4.0-11.0) Red Blood Count 4.16 MIL/MM3 (4.50-5.90) Hemoglobin 11.5 GM/DL (13.0-17.0) Hematocrit 35.9 % (39.0-51.0) Mean Corpuscular Volume 86.4 FL (80.0-100.0) Mean Corpuscular Hemoglobin 27.6 PG (27.0-34.0) Mean Corpuscular Hemoglobin Concent 32.0 % (32.0-36.0) Red Cell Distribution Width 15.7 % (11.6-17.2) Platelet Count 311 TH/MM3 (150-450) Mean Platelet Volume 9.4 FL (7.0-11.0) Blood Urea Nitrogen 22 MG/DL (7-18) Creatinine 0.75 MG/DL (0.60-1.30) Random Glucose 144 MG/DL (74-106) Calcium Level 7.7 MG/DL (8.5-10.1) Sodium Level 143 MEQ/L (136-145) Potassium Level 3.7 MEQ/L (3.5-5.1) Chloride Level 105 MEQ/L (98-107) Carbon Dioxide Level 31.3 MEQ/L (21.0-32.0) Anion Gap 7 MEQ/L (5-15) Estimat Glomerular Filtration Rate 100 ML/MIN (>89) Phenytoin (Dilantin) Level 9.5 MCG/ML (10.0-20.0) (Mona Ybarra) Result Diagram: 12/01/16 0529 12/01/1629 Microbiology Microbiology Date/Time Source Procedure Growth Status 11/26/16 17:06 Blood Peripheral Aerobic Blood Culture - Final NO GROWTH IN 5 DAYS Complete 11/26/16 17:06 Blood Peripheral Anaerobic Blood Culture - Final NO GROWTH IN 5 DAYS Complete 11/18/16 09:27 Urine Catheterized Urine Urine Culture - Final Klebsiella Oxytoca Esbl Pos Complete Imaging Last Impressions Neck CTA 11/26/16307 Signed Impressions: Service Date/Time: Saturday, November 26, 2016 03:33 - CONCLUSION: 1. Calcified plaque in the origin of the internal carotid arteries bilaterally with resultant 45-50%% stenosis on the right and 20%% stenosis on the left. 2. Patent bilateral vertebral arteries. 3. Moderate to large left pleural effusion. 4. 2.2 cm right thyroid nodule. Selvin Bernstein MD Head CTA 11/26/16307 Signed Impressions: Service Date/Time: Saturday, November 26, 2016 03:33 - CONCLUSION: 1. Unremarkable CTA examination without evidence for intracranial large vessel occlusion or stenosis. Selvin Bernstein MD Head CT 11/26/16 0000 Signed Impressions: Service Date/Time: Saturday, November 26, 2016 03:27 - CONCLUSION: 1. 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 2. Stable right WIND PROJECT MANAGER shunt catheter with stable ventricular size and small amount of intraventricular blood products. 3. Otherwise, no significant interval change. Selvin Bernstein MD Chest X-Ray 11/26/16 Signed Impressions: Service Date/Time: Saturday, November 26, 2016 13:20 - CONCLUSION: Interval development of bilateral mixed interstitial and alveolar process could represent pulmonary edema. Melissa Parker MD Maxillofacial CT 11/18/16 0737 Signed Impressions: Service Date/Time: October 07:44 - CONCLUSION: 1. There is extraconal air within the left orbit with periorbital soft tissue swelling. I' m not clearly able to see a fracture on this study that is slightly limited by motion artifact but I suspect there is an orbital floor fracture without entrapment. Karsten Bledsoe Jr., MD Cervical Spine CT 11/18/16 0737 Signed Impressions: Service Date/Time: October 07:44 - CONCLUSION: 1. No fracture or dislocation. 2. Degenerative changes. 3. Calcified plaque involving the carotid arteries. Karsten Bledsoe Jr., MD (Mona Ybarra) Assessment and Plan Disease Oriented Problem List: (1) Altered mental status, unspecified (2) UTI (3) Facial laceration (4) Fracture of orbital wall (5) Chronic indwelling Anaya catheter (6) NPH (normal pressure hydrocephalus) (7) Diabetes (8) BPH (benign prostatic hyperplasia) (9) Diabetes mellitus type 2, uncontrolled (10) Hyperlipidemia (11) Hypertension Symptom Scale: (1) Confusion 0-10 Scale: Unable to quantify (2) Debility 0-10 Scale: Unable to quantify (3) Dyspnea 0-10 Scale: Unable to quantify (4) Dysphagia 0-10 Scale: Unable to quantify Pertinent Non-Medical Issues Psychosocial: Spoke with patient via telephone and was directed to call her son (Mihai) to coordinate any family meetings. Spoke with patient's son and [id number] (Mihai and Alba) via telephone for >1 hour. Discussed patient's current clinical condition, overall decline and prognosis. Questions answered to the best of my ability. Tentative family meeting scheduled for tomorrow 11/23/2016 at 1 PM. Spiritual: Yarsani maxine Legal: Patient admitted his , Radha Sims, as his healthcare surrogate decision maker. His son, Mihai Sims, is designated as the alternate health care decision maker. Ethical issues impacting care: No known ethical issues impacting care at this time . Important Contacts Alla Sims, : [phone] or [phone] Mihai Sims, son: [phone] . Prognosis Patient is an 81-year-old male with a complex medical history who has experienced an acute decline over the past year. Family states in the past 12 months, he has spent more time in the hospital or SNF benefit home in the past 12 months. Experiencing decreased mentation and dysphasia in addition to significant deconditioning. Clinically deteriorating, more obtunded with new onset seizures. Patient has certainly hospice appropriate, his overall prognosis is quite poor. . Code Status: No Code Plan * NO CODE-DNR/DNI * Decision-making: Patient admitted his , Radha Sims, as his healthcare surrogate decision maker. His son, Mihai Sims, is designated as the alternate health care decision maker. Patient's wishes to make all decisions in conjunction with her son, Mihai. * Goals remain aggressive up to the point of cardiopulmonary resuscitation, NO CODE (DNR/DNI). will not likely make decision for comfort unless patient has further significant decline. * Symptom management: = Confusion: Patient with some baseline dementia, now with acute change in mental status. NPH with WIND PROJECT MANAGER shunt placement. Dr. Shah follows. Per Dr. Shah, patient has sustained a recent syncopal episode with secondary ischemic or hypoxic encephalopathy, possibly with further contribution of urosepsis/hypertension.He does have mild primarily frontoparietal subdural effusions noted on his most recent CT scan. A prior study will be located for comparison, but this is unlikely a cause of his present mental status changes. Patient is stuporous. Non verbal, does not follow commands. Withdraws bilateral lower extremities = Dysphagia: Tolerating tube feeding. = Debility: Significant deconditioning likely related to multiple co -morbid conditions in addition to recent acute decline; he has not improved after several months in an SNF with rehabilitation. * Palliative care will continue to follow this patient to establish trust, provide ongoing support and education. . (Mona Ybarra) Attestation To help prompt me to consider important information that might be impacting today's encounter and assessment, information from prior notes written by myself or my colleagues may have been "brought forward" into today's note. My signature on this note, however, is an attestation that I personally performed the exam, history, and/or decision-making noted today, and, unless otherwise indicated, the interactions with patient, family, and staff as well as the review of records all occurred today. I also attest that the listed assessment and stated plan reflect my best clinical judgment today based on the combination of historical information, prior notes, and today's exam/ interactions. When time spent is documented, it refers only to time spent today by the signer, or if indicated, combined time spent today by collaborating physician/nurse practitioner. (Mona Ybarra) Collaborating MD Comments Chart reviewed. Case discussed with palliative care BINDERY OPERATOR. Above note reviewed and I concur. . (Tyson Murillo MD) Mona Ybarra Dec 01, 2016 11:50 Tyson Murillo MD Dec 26, 2016 11:49
--- NOTE | 2016-12-01 14:03 | HHI.PR ---
Subjective Subjective Remarks Eyes closed, responds to voice, weak Color very pale O 2 per mask, 31%, audible rhonchi, random weak cough (Taylor Cm) Review of Systems Constitutional Constitutional Remarks Unable to reviewed systems with patient (Taylor Cm) Vitals/Results Vital Signs Vital Signs Date Time Temp Pulse Resp B/P (MAP) Pulse Ox O2 Delivery O2 Flow Rate FiO2 12/01/16 10:00 85 12/01/16 08:00 99.8 103 26 129/67 (87) 96 12/01/16 08:00 104 12/01/16 07:10 99 Venturi Mask 6.00 31 12/01/16 06:00 97 12/01/16 04:00 98.7 94 27 119/62 (81) 100 12/01/16 04:00 94 12/01/16 02:00 91 12/01/16 00:00 91 12/01/16 00:00 98.9 91 27 105/61 (76) 100 11/30/16 22:00 91 11/30/16 20:00 99.3 96 29 101/64 (76) 98 11/30/16 20:00 97 11/30/16 19:49 96 Venturi Mask 31 11/30/16 18:14 98 Venturi Mask 3.00 31 11/30/16 18:00 100 11/30/16 16:00 99.9 96 29 105/57 (73) 98 11/30/16 16:00 96 11/30/16 14:00 98 (Taylor Cm) CBC/BMP: 12/01/16 0529 12/01/16 0529 Lab Results Laboratory Tests Test 11/30/16 20:23 12/01/16 05:29 White Blood Count 14.9 TH/MM3 13.9 TH/MM3 Red Blood Count 4.03 MIL/MM3 4.16 MIL/MM3 Hemoglobin 11.0 GM/DL 11.5 GM/DL Hematocrit 34.5 % 35.9 % Mean Corpuscular Volume 85.7 FL 86.4 FL Mean Corpuscular Hemoglobin 27.4 PG 27.6 PG Mean Corpuscular Hemoglobin Concent 31.9 % 32.0 % Red Cell Distribution Width 15.3 % 15.7 % Platelet Count 341 TH/MM3 311 TH/MM3 Mean Platelet Volume 9.6 FL 9.4 FL Blood Urea Nitrogen 22 MG/DL 22 MG/DL Creatinine 0.64 MG/DL 0.75 MG/DL Random Glucose 161 MG/DL 144 MG/DL Calcium Level 7.6 MG/DL 7.7 MG/DL Sodium Level 143 MEQ/L 143 MEQ/L Potassium Level 3.7 MEQ/L 3.7 MEQ/L Chloride Level 107 MEQ/L 105 MEQ/L Carbon Dioxide Level 29.4 MEQ/L 31.3 MEQ/L Anion Gap 7 MEQ/L 7 MEQ/L Estimat Glomerular Filtration Rate 120 ML/MIN 100 ML/MIN Phenytoin (Dilantin) Level 9.5 MCG/ML Current Medications Administered Medications Medications (Trade) Dose Ordered Sig/Robert Route PRN Reason Start Time Stop Time Status Last Admin Dose Admin Acetaminophen (Tylenol) 650 mg Q4H PRN PO FEVER 11/18/16 11:00 11/20/16 20:55 Docusate Sodium (Colace) 100 mg BID PO 11/18/16 21:00 11/30/16 19:18 Magnesium Oxide (Mag-Ox) 400 mg DAILY PO 11/19/16 09:00 12/01/16 09:09 Metoclopramide HCl (Reglan) 5 mg TIDAC PO 11/18/16 12:00 12/01/16 09:10 Polyethylene Glycol (Miralax) 17 gm HS PO 11/18/16 21:00 11/30/16 19:18 Venlafaxine HCl (Effexor Xr) 150 mg DAILY PO 11/19/16 09:00 12/01/16 09:08 Lisinopril (Prinivil) 2.5 mg DAILY PO 11/19/16 09:00 12/01/16 09:10 Famotidine (Pepcid) 20 mg DAILY PO 11/19/16 09:00 12/01/16 09:08 Pravastatin Sodium (Pravachol) 20 mg DAILY PO 11/19/16 09:00 12/01/16 09:09 Metoprolol Tartrate (Lopressor) 25 mg Q12HR PO 11/18/16 21:00 12/01/16 09:10 Insulin Aspart (NovoLOG SUPPLEMENTAL SCALE) 1 ACHS SLIDING SCALE SQ 11/18/16 16:00 12/01/16 04:46 Ertapenem 1000 mg/ Sodium Chloride 100 ml @ 200 mls/hr Q24H IV 11/20/16 17:00 11/30/16 16:04 Acetaminophen (Tylenol Supp) 650 mg Q4H PRN RECTAL FEVER 11/25/16 21:45 11/25/16 22:00 Levetriacetam 100 ml @ 400 mls/hr Q12H IV 11/26/16 04:00 12/01/16 01:50 Fosphenytoin Sodium (Cerebyx Inj) 200 mgpe Q8HR IV 11/27/16 22:00 Future Hold 11/29/16 12:57 Hyoscyamine Sulfate (Levsin Liq) 0.125 mg Q4H PRN PO INCREASED SECRETIONS 11/28/16 11:15 11/30/16 15:59 Potassium Chloride 100 ml @ 25 mls/hr UNSCH PRN IV ELECTROLYTE REPLACEMENT 11/28/16 14:00 11/29/16 09:59 Sodium Chloride 1,000 ml @ 50 mls/hr Q20H IV 11/29/16 10:30 11/30/16 19:22 Phenytoin Sodium (Dilantin Inj) 200 mg Q8HR IV 11/29/16 14:00 12/01/16 04:41 (Taylor Cm) Physical Exam General General Appearance: Sleeping (lethargic) Appearance Remarks eyes closed, but arouses to voice, non verbal (Taylor Cm) Eyes Eye Remarks PEARLA at 3mm, (Taylor Cm) Throat Throat Remarks Oropharynx very dry, respirations tachypnea random audible cough, mask 35%, O2 sat 99 (Taylro Cm) Neck Neck Exam: Neck Supple (Taylor Cm) Pulmonary Resp Exam: Rhonchi (audible rhonchi upper airways), Decreased Bases, Diminished Breath Sounds, Poor Inspiratory Effort (Taylor Cm) Cardiology CV Exam: Regular (with PACs) (Taylor Cm) Gastrointestinal/Abdomen GI Exam: Bowel Sounds Present (upper quadrants more active) GI Remarks NG tube clamp Rectal Anaya with brown liquid stool (Taylor Cm) Genitourinary Remarks Anaya catheter, dark yellow urine in bag (Taylor Cm) Integumentary Skin Exam: Warm, Dry, Cool (Taylor Cm) Extremeties Extremities Exam: Trace Edema Extremeties Remarks , Skin color extremely pale, SCDs on (Taylor Cm) Neurologic Neuro Exam: Stuporous Neuro Remarks Lethargic but will arouse to verbal stimuli (Taylor Cm) Assessment/Plan Assessment/Plan Vital signs reviewed, 99.8 temp, pulse between 104 and 85, maintains 31% mask pulls off randomly DuoNeb treatments, Rectal Anaya with liquid diarrhea bowel regimen, small amounts Labs reviewed, leukocytosis trending down 13.9, anemia stable at 11.5, sodium 143, potassium 3.7 B UN remains consistent at 22 blood sugar 144, Dilantin level 9.5 Initial diagnosis, patient had fall Bilateral subdural hygromas, Left forehead laceration and racoon bruising left eye, mild improvement to left eye Neurosurgery input appreciated, moved to the intensive care setting, Patient lethargic, minimal response to sternal rub, tachypnea respirations Possible New onset seizure versus tremors, IV Celebrex on hold due to pharmacy unavailability, changed to Dilantin same dose 200 mg IV every 8, will work with pharmacy when Celebrex available again Sepsis, new fever, leukocytosis, unspecified Recurrent UTI, chronic indwelling catheter. Urine culture positive for Enterobacter cloacae, Klebsiella oxytoca ESBL positive. ID input appreciated PICC line present, audible rhonchi in chest, moans with respirations, DuoNeb treatments every 4hr, still requiring O2 per mask at 35% Mental status is very weak, but more alert today, will squeeze hands on command , attempts to answer simple questions Type 2 diabetes Accu-Cheks before meals and at bedtime with insulin therapy Hypertension, hyperlipidemia diabetes type 2 monitored for their stability stable SCDs for DVT prophylaxis, avoid anticoagulation Patient's lung status remains coarse rhonchi, O2 sat remains in the high 90s with 31% Plan to wean if possible Appreciate palliative care input, personnel here for an update DNR status remains otherwise full aggressive care, no family present right now Encouraged and supportive care to patient Discussed with nurse Discussed with Dr. Greenwood, seen on his behalf (Taylor Cm) Assessment/Plan Vision seen and examined as above Labs reviewed medications reviewed Discussed with and son at bedside Discussed with palliative care VICE PRESIDENT CORPORATE COMMUNICATIONS Plan of care discussed with VICE PRESIDENT [employer]PORATE COMMUNICATIONS (Radhames Greenwood MD) Taylor Cm Dec 01, 2016 14:03 Radhames Greenwood MD Dec 01, 2016 16:07
[2016-12-01] MEDS: SODIUM CHLOR 0.45% 1000 ML INJ 1,000 ML IV SCH (17:35)
[2016-12-01] MEDS: ERTAPENEM INJ 1,000 MG in SODIUM CHLORIDE 0.9% INJ 100 ML IV SCH (17:38)
[2016-12-01] MEDS: POLYETHYLENE GLYCOL 17 GM PKG PO SCH (20:34)
[2016-12-02] VITALS (16 sets, daily range): BP systolic 105–128; BP diastolic 56–79; PULSE 93–107; RESP 16–24; TEMP 98.5–99.5; O2SAT 91–100
[2016-12-02] MEDS: levETIRAcetam 1000 MG INJ 100 ML IV SCH ×2 (04:12→16:01)
[2016-12-02] MEDS: PHENYTOIN INJ 100 MG/2 ML VIAL IV SCH ×3 (06:15→22:15)
[2016-12-02] MEDS: INSULIN ASPART SUPPLEMENTAL SCALE SQ SCH ×4 (08:00→22:15)
[2016-12-02] MEDS: FAMOTIDINE 20 MG TAB PO SCH (08:58)
[2016-12-02] MEDS: METOPROLOL TARTRATE 25 MG TAB PO SCH ×2 (08:58→22:15)
[2016-12-02] MEDS: METOCLOPRAMIDE HCL 10 MG TAB PO SCH ×3 (08:58→16:02)
[2016-12-02] MEDS: PRAVASTATIN SOD 20 MG TAB PO SCH (08:58)
[2016-12-02] MEDS: LISINOPRIL 5 MG TAB PO SCH (08:58)
--- NOTE | 2016-12-02 09:53 | HHI.PR ---
Subjective Remarks Lethargic, does not open eyes to voice Not following commands receiving tube feedings via NG tube Unable to obtain ROS Tachycardic Sats 91-92% on 2 L nasal cannula Objective Objective Results - Vital Signs Date Time Temp Pulse Resp B/P (MAP) Pulse Ox O2 Delivery O2 Flow Rate FiO2 12/02/16 06:00 100 12/02/16 04:00 99.4 100 23 120/68 (85) 94 12/02/16 04:00 100 12/02/16 02:00 105 12/02/16 00:00 104 12/02/16 00:00 99.5 107 19 117/64 (81) 99 12/01/16 23:00 100 12/01/16 22:00 99 12/01/16 21:00 100 12/01/16 20:00 98.2 98 23 126/71 (89) 97 12/01/16 20:00 98 12/01/16 18:00 95 12/01/16 16:00 96 12/01/16 16:00 99.6 97 23 120/65 (83) 97 12/01/16 14:00 94 12/01/16 12:00 97 12/01/16 12:00 98.7 92 25 110/70 (83) 96 12/01/16 10:00 85 I/O 12/01/16 12/01/16 12/01/16 12/02/16 12/02/16 12/02/16 07:00 15:00 23:00 07:00 15:00 23:00 Intake Total 425 ml 496 ml 1092 ml Output Total 625 ml 850 ml 850 ml Balance -200 ml -354 ml 242 ml IV Total 612 ml Tube Feeding 425 ml 496 ml 480 ml Output Urine Total 550 ml 850 ml 850 ml Stool Total 75 ml # Bowel Movements 1 0 Result Diagram: 12/01/16 0529 12/01/16 0529 Imaging Last Impressions Chest X-Ray 11/18/16737 Signed Impressions: Service Date/Time: October 07:52 - CONCLUSION: No acute cardiac pulmonary disease. Karsten Bledsoe Jr., MD Maxillofacial CT 11/18/1637 Signed Impressions: Service Date/Time: October 07:44 - CONCLUSION: 1. There is extraconal air within the left orbit with periorbital soft tissue swelling. I' m not clearly able to see a fracture on this study that is slightly limited by motion artifact but I suspect there is an orbital floor fracture without entrapment. Karsten Bledsoe Jr., MD Head CT 11/18/1637 Signed Impressions: Service Date/Time: , November 18, 2016 07:44 - CONCLUSION: Thin parafalcine subdural hematoma Rick Ellington MD Cervical Spine CT 11/18/1637 Signed Impressions: Service Date/Time: , November 18, 2016 07:44 - CONCLUSION: 1. No fracture or dislocation. 2. Degenerative changes. 3. Calcified plaque involving the carotid arteries. Karsten Bledsoe Jr., MD Other Results Laboratory Tests Test 12/02/16 04:21 Phenytoin (Dilantin) Level 10.6 Date/Time Source Procedure Growth Status 11/26/16 17:06 Blood Peripheral Aerobic Blood Culture - Final NO GROWTH IN 5 DAYS Complete 11/26/16 17:06 Blood Peripheral Anaerobic Blood Culture - Final NO GROWTH IN 5 DAYS Complete 11/18/16 09:27 Urine Catheterized Urine Urine Culture - Final Klebsiella Oxytoca Esbl Pos Complete ROS General: Other (unable to obtain ROS) Physical Exam Physical Exam GENERAL: This is a frail, thin built elderly male. SKIN: No rashes, ecchymoses or lesions. Cool and dry. HEAD: Left forehead with laceration, Steri-Strips in place. Left periorbital bruising. EYES: Pupils equal round and reactive, but sluggish. No scleral icterus. No injection or drainage. ENT: Nose without bleeding, purulent drainage or septal hematoma. Throat without erythema, tonsillar hypertrophy or exudate. Uvula midline. Airway patent. NECK: Trachea midline. No JVD or lymphadenopathy. Supple, nontender, no meningeal signs. CARDIOVASCULAR: S1 and S2, sinus tachycardia. No rubs, no gallops, no murmurs. RESPIRATORY: coarse upper airway GASTROINTESTINAL: Abdomen soft, non-tender, nondistended. No hepato-splenomegaly , or palpable masses. No guarding. : large inguinal hernia MUSCULOSKELETAL: Extremities without clubbing, cyanosis, or edema. No joint tenderness, effusion, or edema noted. No calf tenderness. Negative Homans sign bilaterally. NEUROLOGICAL: Lethargic, withdraws to nauseous stimuli. Urinary Catheter: Yes Assessment to: Continue Anaya insert reason: Obstruction/Retention Vascular Central Line Catheter: Yes Assessment to: Continue Line: PICC A/P Diagnosis: (1) Fall ICD Codes: W19.XXXA - Unspecified fall, initial encounter Status: Acute (2) Facial laceration ICD Codes: S01.81XA - Laceration without foreign body of other part of head, initial encounter Status: Acute (3) Subdural hematoma, acute ICD Codes: I62.01 - Nontraumatic acute subdural hemorrhage Status: Acute (4) Fracture of orbital wall ICD Codes: S02.80XA - Fracture of other specified skull and facial bones, unspecified side, initial encounter for closed fracture Status: Acute (5) Tachycardia ICD Codes: R00.0 - Tachycardia, unspecified Status: Acute (6) Frequent falls ICD Codes: R29.6 - Recurrent falls Status: Chronic (7) Ataxia ICD Codes: R27.0 - Ataxia Status: Acute (8) NPH (normal pressure hydrocephalus) ICD Codes: G91.2 - Normal pressure hydrocephalus Status: Chronic (9) Diabetes ICD Codes: E11.9 - Diabetes mellitus Status: Chronic (10) BPH (benign prostatic hyperplasia) ICD Codes: N40.0 - Benign prostatic hyperplasia Status: Chronic (11) Peripheral neuropathy ICD Codes: G62.9 - Peripheral neuropathy Status: Chronic (12) Hyperlipidemia ICD Codes: E78.5 - Hyperlipidemia Status: Chronic (13) Hypertension ICD Codes: I10 - Hypertension Status: Chronic (14) S/P HOTEL SERVICE SUPERVISOR shunt ICD Codes: Z98.2 - Status post ventriculoperitoneal shunt Status: Resolved (15) Chronic indwelling Anaya catheter ICD Codes: Z92.89 - Personal history of other medical treatment Status: Chronic (16) Urinary tract infection ICD Codes: N39.0 - Urinary tract infection, site not specified Status: Acute (17) Impaired cognition ICD Codes: R41.89 - Impaired cognition Status: Chronic Assessment and Plan 81-year-old elderly male with history of NPH has HOTEL SERVICE SUPERVISOR shunt, recurrent falls, dementia, peripheral neuropathy, physical debility, recurrent UTIs and sepsis. Subdural hematoma, status post fall Left forehead laceration Left orbital floor fracture without entrapment per CT finding -Neurosurgery input appreciated, non surgical management recommended -Continue neuro checks -Fall precautions -Avoid any anticoagulation -appreciate Dr. Shah's input-recommended adjusting HOTEL SERVICE SUPERVISOR shunt, to 200. -neuro status continues to wax and wane, at times verbal however for the most part lethargic. New onset seizure, likely sec. to SDH. Hallicat called, witnessed seizure per staff -appreciate neurology input -imaging studies reviewed -EEG done, no active seizures -Continue Cerebyx and Keppra -Ativan PRN -Has not had anymore seizures, continue to monitor Sepsis, had new fever, tachy, WBC elevated. ? asp PNA. Recurrent UTI, chronic indwelling catheter. Urine culture positive for Enterobacter cloacae, Klebsiella oxytoca ESBL positive. -Continue with ertapenem -ID input appreciated -Anaya catheter was changed in the emergency room -UC positive for Klebsiella oxytoca ESBL positive. -ID recommended 2 weeks of Ertapenem/OK for PICC if remains afebrile and blood clx are negative @ alt least 72 hrs -has PICC line -Blood cultures remain negative -Chest x-ray with findings for interval development of mixed interstitial alveolar process, possibly pulmonary edema. -Remains afebrile, blood cultures negative. -Continue with DuoNeb's and supplemental oxygen -Remains with coarse rhonchi upper lobes, no fever. High risk for aspiration. Type 2 diabetes Accu-Cheks before meals and at bedtime with insulin therapy Hypertension, stable -continue home medications Hyperlipidemia Continue with home medications Malnourished Dysphagia -Continue with tube feedings -Monitor residual SCDs for DVT prophylaxis, avoid anticoagulation Fall precautions Keep NPO, high risk for aspiration Patient continues to decline, neuro status remains for the most part obtunded. Occasionally wakes up and response Overall prognosis poor DNR status Appreciate palliative care input, discussed with Trista ELDER is having a difficult time transitioning to comfort care Keep in ICU for now, pt. is DNR but full active treatment Repeat labs in the morning D/W RN D/W Dr. Greenwood/Adolfo ELDER This patient was seen by myself and Dr. Greenwood, this note is written on his behalf Problem Qualifiers (1) Fall: Qualified Codes: W19.XXXA - Unspecified fall, initial encounter (2) Facial laceration: Qualified Codes: S01.81XA - Laceration without foreign body of other part of head, initial encounter (3) Fracture of orbital wall: Qualified Codes: S02.80XA - Fracture of other specified skull and facial bones , unspecified side, initial encounter for closed fracture (4) Diabetes: Qualified Codes: E11.8 - Type 2 diabetes mellitus with unspecified complications (5) Peripheral neuropathy: Qualified Codes: G62.9 - Polyneuropathy, unspecified (6) Hyperlipidemia: Qualified Codes: E78.5 - Hyperlipidemia, unspecified (7) Hypertension: Qualified Codes: I10 - Essential (primary) hypertension (8) Urinary tract infection: Qualified Codes: T83.511D - Infection and inflammatory reaction due to indwelling urethral catheter, subsequent encounter; N39.0 - Urinary tract infection, site not specified Joan Martinez [employer]IC[employer] APPRENTICE Dec 02, 2016 09:53
--- NOTE | 2016-12-02 11:38 | HHI.HCPN ---
Reason for visit a. To assist with evaluation and management of symptoms including: pain, confusion, dyspnea. b. To assist medical decision maker(s) with: better understanding of current medical conditions; weighing benefits/burdens of medical treatment options; making medical treatment decisions. . Subjective/Interval History Patient seen and examined in ICU. Spoke with nurse. No family at bedside. Tmax 99.5. HR 100-110. On oxygen via NC. No new imaging. Patient with eyes closed. Intermittent furrowed brow and grimacing to voice or movement. Does not answer questions for me. . Family/friend interactions No family at bedside. 2pm: Spoke with and son, Sven at bedside. She feels the patient is declining (not as responsive today). We reviewed patient overall is medically stable, though not expected to return to level of functioning as prior to admission. We talked about nutritional status, including him being tube feeding dependent. I explained I do not foresee him being able to eat on his own unless he has some significant neurologic improvement. I reviewed his high risk for further decline, repeat infections or even . is struggling with the idea of transition to comfort, but feels "comforted" by this conversation and welcomes continued palliative care assistance. . Advance Directives Living Will: Completed, but not made available Health Care Surrogate: Copy in medical record Advance Directive Specifics Date completed: 02/23/2007 . Health Care Surrogate(s): Patient admitted his , Radha Sims, as his healthcare surrogate decision maker. His son, Mihai Sims, is designated as the alternate health care decision maker. . Documented care wishes: Patient has completed a living will. Family will attempt to find the document and bring it to the family meeting planned for tomorrow 11/23/2016 . Significant change in goals: NO CODE. Desires continued aggressive care. . Objective Vital Signs Date Time Temp Pulse Resp B/P (MAP) Pulse Ox O2 Delivery O2 Flow Rate FiO2 12/02/16 06:00 100 12/02/16 04:00 99.4 100 23 120/68 (85) 94 12/02/16 04:00 100 12/02/16 02:00 105 12/02/16 00:00 104 12/02/16 00:00 99.5 107 19 117/64 (81) 99 12/01/16 23:00 100 12/01/16 22:00 99 12/01/16 21:00 100 12/01/16 20:00 98.2 98 23 126/71 (89) 97 12/01/16 20:00 98 12/01/16 18:00 95 12/01/16 16:00 96 12/01/16 16:00 99.6 97 23 120/65 (83) 97 12/01/16 14:00 94 12/01/16 12:00 97 12/01/16 12:00 98.7 92 25 110/70 (83) 96 Intake & Output 12/02/16 12/02/16 07:00 19:00 Intake Total 1092 ml Output Total 850 ml Balance 242 ml IV Total 612 ml Tube Feeding 480 ml Output Urine Total 850 ml # Bowel Movements 0 Physical Exam CONSTITUTIONAL/GENERAL: This is a frail, elderly male in no apparent distress. TUBES/LINES/DRAINS: Venturi mask, NG, Anaya catheter, rectal tube, PIV. SKIN: No jaundice, rashes, or lesions. Ecchymoses on upper extremities and left eye. No wounds seen anteriorly. Skin temperature appropriate. Not diaphoretic. CARDIOVASCULAR: Regular rate and rhythm without murmurs, gallops, or rubs. RESPIRATORY/CHEST: Symmetric, unlabored respirations. Breath sounds diminished bilaterally. GASTROINTESTINAL: Abdomen soft, non-tender, rounded. + bowel sounds. GENITOURINARY: Without palpable bladder distension. Anaya. + scrotal edema. MUSCULOSKELETAL: Extremities with edema. No mottling or clubbing. NEUROLOGICAL: Eyes closed. Nonverbal, does not follow commands. Withdraws bilateral lower extremities PSYCHIATRIC: Unable to assess secondary to patient's clinical condition. . Diagnostic Tests Laboratory Laboratory Tests Test 11/30/16 04:20 11/30/16 20:23 12/01/16 05:29 12/02/16 04:21 Phenytoin (Dilantin) Level 8.9 MCG/ML (10.0-20.0) 9.5 MCG/ML (10.0-20.0) 10.6 MCG/ML (10.0-20.0) White Blood Count 14.9 TH/MM3 (4.0-11.0) 13.9 TH/MM3 (4.0-11.0) Red Blood Count 4.03 MIL/MM3 (4.50-5.90) 4.16 MIL/MM3 (4.50-5.90) Hemoglobin 11.0 GM/DL (13.0-17.0) 11.5 GM/DL (13.0-17.0) Hematocrit 34.5 % (39.0-51.0) 35.9 % (39.0-51.0) Mean Corpuscular Volume 85.7 FL (80.0-100.0) 86.4 FL (80.0-100.0) Mean Corpuscular Hemoglobin 27.4 PG (27.0-34.0) 27.6 PG (27.0-34.0) Mean Corpuscular Hemoglobin Concent 31.9 % (32.0-36.0) 32.0 % (32.0-36.0) Red Cell Distribution Width 15.3 % (11.6-17.2) 15.7 % (11.6-17.2) Platelet Count 341 TH/MM3 (150-450) 311 TH/MM3 (150-450) Mean Platelet Volume 9.6 FL (7.0-11.0) 9.4 FL (7.0-11.0) Blood Urea Nitrogen 22 MG/DL (7-18) 22 MG/DL (7-18) Creatinine 0.64 MG/DL (0.60-1.30) 0.75 MG/DL (0.60-1.30) Random Glucose 161 MG/DL (74-106) 144 MG/DL (74-106) Calcium Level 7.6 MG/DL (8.5-10.1) 7.7 MG/DL (8.5-10.1) Sodium Level 143 MEQ/L (136-145) 143 MEQ/L (136-145) Potassium Level 3.7 MEQ/L (3.5-5.1) 3.7 MEQ/L (3.5-5.1) Chloride Level 107 MEQ/L (98-107) 105 MEQ/L (98-107) Carbon Dioxide Level 29.4 MEQ/L (21.0-32.0) 31.3 MEQ/L (21.0-32.0) Anion Gap 7 MEQ/L (5-15) 7 MEQ/L (5-15) Estimat Glomerular Filtration Rate 120 ML/MIN (>89) 100 ML/MIN (>89) Result Diagram: 12/01/16 0529 12/01/16 0529 Microbiology Microbiology Date/Time Source Procedure Growth Status 11/26/16 17:06 Blood Peripheral Aerobic Blood Culture - Final NO GROWTH IN 5 DAYS Complete 11/26/16 17:06 Blood Peripheral Anaerobic Blood Culture - Final NO GROWTH IN 5 DAYS Complete 11/18/16 09:27 Urine Catheterized Urine Urine Culture - Final Klebsiella Oxytoca Esbl Pos Complete Imaging Last Impressions Neck CTA 11/26/16307 Signed Impressions: Service Date/Time: Saturday, November 26, 2016 03:33 - CONCLUSION: 1. Calcified plaque in the origin of the internal carotid arteries bilaterally with resultant 45-50%% stenosis on the right and 20%% stenosis on the left. 2. Patent bilateral vertebral arteries. 3. Moderate to large left pleural effusion. 4. 2.2 cm right thyroid nodule. Selvin Bernstein MD Head CTA 11/26/16307 Signed Impressions: Service Date/Time: Saturday, November 26, 2016 03:33 - CONCLUSION: 1. Unremarkable CTA examination without evidence for intracranial large vessel occlusion or stenosis. Selvin Bernstein MD Head CT 11/26/16 0000 Signed Impressions: Service Date/Time: Saturday, November 26, 2016 03:27 - CONCLUSION: 1. 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 2. Stable right HIGH [employer]OL ENGLISH TEACHER shunt catheter with stable ventricular size and small amount of intraventricular blood products. 3. Otherwise, no significant interval change. Selvin Bernstein MD Chest X-Ray 11/26/16 0000 Signed Impressions: Service Date/Time: Saturday, November 26, 2016 13:20 - CONCLUSION: Interval development of bilateral mixed interstitial and alveolar process could represent pulmonary edema. Melissa Parker MD Maxillofacial CT 11/18/16 0737 Signed Impressions: Service Date/Time: October 07:44 - CONCLUSION: 1. There is extraconal air within the left orbit with periorbital soft tissue swelling. I' m not clearly able to see a fracture on this study that is slightly limited by motion artifact but I suspect there is an orbital floor fracture without entrapment. Karsten Bledsoe Jr., MD Cervical Spine CT 11/18/16 0737 Signed Impressions: Service Date/Time: October 07:44 - CONCLUSION: 1. No fracture or dislocation. 2. Degenerative changes. 3. Calcified plaque involving the carotid arteries. Karsten Bledsoe Jr., MD Assessment and Plan Disease Oriented Problem List: (1) Altered mental status, unspecified (2) UTI (3) Facial laceration (4) Fracture of orbital wall (5) Chronic indwelling Anaya catheter (6) NPH (normal pressure hydrocephalus) (7) Diabetes (8) BPH (benign prostatic hyperplasia) (9) Diabetes mellitus type 2, uncontrolled (10) Hyperlipidemia (11) Hypertension Symptom Scale: (1) Confusion 0-10 Scale: Unable to quantify (2) Debility 0-10 Scale: Unable to quantify (3) Dyspnea 0-10 Scale: Unable to quantify (4) Dysphagia 0-10 Scale: Unable to quantify Pertinent Non-Medical Issues Psychosocial: Spoke with patient via telephone and was directed to call her son (Mihai) to coordinate any family meetings. Spoke with patient's son and [id number] (Mihia and Alba) via telephone for >1 hour. Discussed patient's current clinical condition, overall decline and prognosis. Questions answered to the best of my ability. Tentative family meeting scheduled for tomorrow 11/23/2016 at 1 PM. Spiritual: Orthodox maxine Legal: Patient admitted his , Radha Sims, as his healthcare surrogate decision maker. His son, Mihai Sims, is designated as the alternate health care decision maker. Ethical issues impacting care: No known ethical issues impacting care at this time . Important Contacts Alla Sims, : [phone] or [phone] Mihai Sims, son: [phone] . Prognosis Patient is an 81-year-old male with a complex medical history who has experienced an acute decline over the past year. Family states in the past 12 months, he has spent more time in the hospital or SNF benefit home in the past 12 months. Experiencing decreased mentation and dysphasia in addition to significant deconditioning. Clinically deteriorating, more obtunded with new onset seizures. Patient has certainly hospice appropriate, his overall prognosis is quite poor. . Code Status: No Code Plan * NO CODE-DNR/DNI * Decision-making: Patient admitted his , Radha Sims, as his healthcare surrogate decision maker. His son, Mihai Sims, is designated as the alternate health care decision maker. Patient's wishes to make all decisions in conjunction with her son, Mihai. * Goals remain aggressive up to the point of cardiopulmonary resuscitation, NO CODE (DNR/DNI). * 12/02/16 - 2pm: Spoke with and son, Sven at bedside. She feels the patient is declining (not as responsive today). We reviewed patient overall is medically stable, though not expected to return to level of functioning as prior to admission. We talked about nutritional status, including him being tube feeding dependent. I explained I do not foresee him being able to eat on his own unless he has some significant neurologic improvement. I reviewed his high risk for further decline, repeat infections or even . is struggling with the idea of transition to comfort, but feels "comforted" by this conversation and welcomes continued palliative care assistance. * Symptom management: = Confusion: Patient with some baseline dementia, now with acute change in mental status. NPH with HIGH SCHOOL ENGLISH TE[employer]ER shunt placement. Dr. Shah follows. Per Dr. Shah, patient has sustained a recent syncopal episode with secondary ischemic or hypoxic encephalopathy, possibly with further contribution of urosepsis/hypertension.He does have mild primarily frontoparietal subdural effusions noted on his most recent CT scan. A prior study will be located for comparison, but this is unlikely a cause of his present mental status changes. Patient is stuporous. Non verbal, does not follow commands. Withdraws bilateral lower extremities = Dysphagia: Tolerating tube feeding. = Debility: Significant deconditioning likely related to multiple co -morbid conditions in addition to recent acute decline; he has not improved after several months in an SNF with rehabilitation. * Palliative care will continue to follow this patient to establish trust, provide ongoing support and education. . Attestation To help prompt me to consider important information that might be impacting today's encounter and assessment, information from prior notes written by myself or my colleagues may have been "brought forward" into today's note. My signature on this note, however, is an attestation that I personally performed the exam, history, and/or decision-making noted today, and, unless otherwise indicated, the interactions with patient, family, and staff as well as the review of records all occurred today. I also attest that the listed assessment and stated plan reflect my best clinical judgment today based on the combination of historical information, prior notes, and today's exam/ interactions. When time spent is documented, it refers only to time spent today by the signer, or if indicated, combined time spent today by collaborating physician/nurse practitioner. Mona Ybarra Dec 02, 2016 11:38
[2016-12-02] MEDS: ERTAPENEM INJ 1,000 MG in SODIUM CHLORIDE 0.9% INJ 100 ML IV SCH (16:30)
[2016-12-02] MEDS: SODIUM CHLOR 0.45% 1000 ML INJ 1,000 ML IV SCH (18:30)
[2016-12-02] MEDS: POLYETHYLENE GLYCOL 17 GM PKG PO SCH (22:15)
[2016-12-02] MEDS: DOCUSATE SODIUM 100 MG/10 ML UDC PO SCH (22:15)
[2016-12-03] VITALS (9 sets, daily range): BP systolic 105–120; BP diastolic 55–78; PULSE 93–110; RESP 19–22; TEMP 97.8–99.6; O2SAT 90–97
[2016-12-03] MEDS: levETIRAcetam 1000 MG INJ 100 ML IV SCH ×2 (04:58→18:05)
[2016-12-03] MEDS: PHENYTOIN INJ 100 MG/2 ML VIAL IV SCH ×3 (04:59→22:36)
--- NOTE | 2016-12-03 07:54 | HHI.PR ---
Review/Management Diagnosis/Plan: (1) Seizure cerebral ICD Codes: I67.89 - Other cerebrovascular disease Status: Acute Plan: appears to have new-onset sz likely 2/2 sdh iv keppra and iv cerebryx recs neuro improved p.t/s.t dil 19.9 corrected follow exam (2) Acute encephalopathy ICD Codes: G93.40 - Encephalopathy, unspecified Status: Acute (3) Subdural hematoma, acute ICD Codes: I62.01 - Nontraumatic acute subdural hemorrhage Status: Acute (4) Nontraumatic brain injury ICD Codes: S06.890A - Other specified intracranial injury without loss of consciousness, initial encounter Status: Acute (5) NPH (normal pressure hydrocephalus) ICD Codes: G91.2 - Normal pressure hydrocephalus Status: Chronic (6) Frequent falls ICD Codes: R29.6 - Recurrent falls Status: Chronic Subjective Subjective Comments No acute events reported No headache No chest pain No dyspnea Active Medications Current Medications Medications (Trade) Dose Ordered Sig/Robert Route Start Time Stop Time Status Last Admin (NS Flush) 2 ml UNSCH PRN IVF 11/18/16 07:45 (Tylenol) 650 mg Q4H PRN PO 11/18/16 11:00 11/20/16 20:55 (Reglan) 5 mg TIDAC PO 11/18/16 12:00 12/02/16 16:02 (Miralax) 17 gm HS PO 11/18/16 21:00 12/01/16 20:34 (Prinivil) 2.5 mg DAILY PO 11/19/16 09:00 12/02/16 08:58 (Pepcid) 20 mg DAILY PO 11/19/16 09:00 12/02/16 08:58 (Pravachol) 20 mg DAILY PO 11/19/16 09:00 12/02/16 08:58 (Lopressor) 25 mg Q12HR PO 11/18/16 21:00 12/02/16 22:15 (Zofran Inj) 4 mg Q8HR PRN IV PUSH 11/18/16 11:15 (D50w (Vial) Inj) 50 ml UNSCH PRN IV 11/18/16 11:15 (Glucagon Inj) 1 mg UNSCH PRN OTHER 11/18/16 11:15 (NovoLOG SUPPLEMENTAL SCALE) 1 ACHS SLIDING SCALE SQ 11/18/16 16:00 12/02/16 17:00 (Pill Splitter) 1 ea UNSCH PRN OTHER 11/18/16 11:30 Ertapenem 1000 mg/ Sodium Chloride 100 ml @ 200 mls/hr Q24H IV 11/20/16 17:00 12/02/16 16:30 (Vasotec Inj) 1.25 mg Q8H PRN IV PUSH 11/23/16 14:45 (Tylenol Supp) 650 mg Q4H PRN RECTAL 11/25/16 21:45 11/25/16 22:00 Levetriacetam 100 ml @ 400 mls/hr Q12H IV 11/26/16 04:00 12/03/16 04:58 (Cerebyx Inj) 200 mgpe Q8HR IV 11/27/16 22:00 Future Hold 11/29/16 12:57 (Levsin Liq) 0.125 mg Q4H PRN PO 11/28/16 11:15 11/30/16 15:59 Sodium Chloride 1,000 ml @ 50 mls/hr Q20H IV 11/29/16 10:30 12/01/16 17:35 (Dilantin Inj) 200 mg Q8HR IV 11/29/16 14:00 12/03/16 04:59 (Colace Liq) 100 mg Q12HR PO 12/02/16 09:15 Allergies Allergies Coded Allergies No Known Allergies (Unverified11/30/16) Review of Systems All other ROS: ROS reviewed as documented in chart Exam I&O / VS Vital Signs Date Time Temp Pulse Resp B/P (MAP) Pulse Ox O2 Delivery O2 Flow Rate FiO2 12/03/16 04:35 98.2 106 22 116/55 (75) 90 12/03/16 00:00 98.1 109 22 105/78 (87) 93 12/02/16 20:37 98.5 102 19 111/58 (75) 93 12/02/16 18:36 98.6 101 20 105/59 (74) 95 12/02/16 16:00 99.2 12/02/16 16:00 101 12/02/16 15:00 100 12/02/16 15:00 100 21 111/63 (79) 91 12/02/16 14:00 103 22 114/56 (75) 98 12/02/16 14:00 103 12/02/16 13:00 97 24 111/62 (78) 99 12/02/16 13:00 97 12/02/16 12:00 99 12/02/16 12:00 99 16 119/64 (82) 98 12/02/16 11:00 94 12/02/16 11:00 94 21 118/62 (80) 100 12/02/16 10:00 93 12/02/16 10:00 93 24 110/57 (74) 96 12/02/16 09:00 105 12/02/16 09:00 105 22 118/69 (85) 92 12/02/16 08:00 100 24 128/79 (95) 91 12/02/16 08:00 100 Respiratory: Non-labored respirations Exam Comments drowsy, alerts, mumbles a few words, ng in place, follows simple request, shows 2 fingers, protrudes tongue, eomi, face sym, localizes with all 4 ext Objective Micro and Labs Date/Time Source Procedure Growth Status 11/26/16 17:06 Blood Peripheral Aerobic Blood Culture - Final NO GROWTH IN 5 DAYS Complete 11/26/16 17:06 Blood Peripheral Anaerobic Blood Culture - Final NO GROWTH IN 5 DAYS Complete 11/18/16 09:27 Urine Catheterized Urine Urine Culture - Final Klebsiella Oxytoca Esbl Pos Complete Kory Morgan MD Dec 03, 2016 07:54
[2016-12-03] MEDS: FAMOTIDINE 20 MG TAB PO SCH (09:57)
[2016-12-03] MEDS: PRAVASTATIN SOD 20 MG TAB PO SCH (09:57)
[2016-12-03] MEDS: DOCUSATE SODIUM 100 MG/10 ML UDC PO SCH ×2 (09:57→21:00)
[2016-12-03] MEDS: FOSPHENYTOIN SODIUM 100 MG PE/2 ML VIAL IV SCH ×2 (09:58→22:36)
[2016-12-03] MEDS: METOPROLOL TARTRATE 25 MG TAB PO SCH ×2 (09:59→22:36)
[2016-12-03] MEDS: INSULIN ASPART SUPPLEMENTAL SCALE SQ SCH ×4 (09:59→21:00)
[2016-12-03] MEDS: METOCLOPRAMIDE HCL 10 MG TAB PO SCH ×3 (09:59→18:05)
[2016-12-03] MEDS: LISINOPRIL 5 MG TAB PO SCH (10:00)
[2016-12-03 11:28] LABS: BICARBONATE 29.8 MEQ/L (21.0-32.0); MAGNESIUM 1.9 MG/DL (1.5-2.5); POTASSIUM 3.7 MEQ/L (3.5-5.1)
--- NOTE | 2016-12-03 12:59 | HHI.PR ---
Subjective Remarks Patient is awake, following simple commands Difficult to understand, voice very soft Very weak Right arm noted with more swelling No fever Difficult to obtain ROS Per nursing, has been having liquid stools Objective Objective Results - Vital Signs Date Time Temp Pulse Resp B/P (MAP) Pulse Ox O2 Delivery O2 Flow Rate FiO2 12/03/16 12:17 98.2 93 19 110/60 (77) 97 12/03/16 08:17 98.3 109 19 119/60 (79) 96 12/03/16 04:35 98.2 106 22 116/55 (75) 90 12/03/16 00:00 98.1 109 22 105/78 (87) 93 12/02/16 23:15 95 12/02/16 20:37 98.5 102 19 111/58 (75) 93 12/02/16 18:36 98.6 101 20 105/59 (74) 95 12/02/16 16:00 99.2 12/02/16 16:00 101 12/02/16 15:00 100 12/02/16 15:00 100 21 111/63 (79) 91 12/02/16 14:00 103 22 114/56 (75) 98 12/02/16 14:00 103 12/02/16 13:00 97 24 111/62 (78) 99 12/02/16 13:00 97 I/O 12/02/16 12/02/16 12/02/16 12/03/16 12/03/16 12/03/16 07:00 15:00 23:00 07:00 15:00 23:00 Intake Total 1092 ml 1454 ml Output Total 850 ml 2150 ml 1700 ml 650 ml Balance 242 ml -696 ml -1700 ml -650 ml IV Total 612 ml Tube Feeding 480 ml 854 ml Other 600 ml Output Urine Total 850 ml 2150 ml 1700 ml 650 ml # Bowel Movements 0 2 1 1 Result Diagram: 12/01/16 0529 12/03/16 0957 Imaging Last Impressions Chest X-Ray 11/18/1638 Signed Impressions: Service Date/Time: October 07:52 - CONCLUSION: No acute cardiac pulmonary disease. Karsten Bledsoe Jr., MD Maxillofacial CT 11/18/1637 Signed Impressions: Service Date/Time: October 07:44 - CONCLUSION: 1. There is extraconal air within the left orbit with periorbital soft tissue swelling. I' m not clearly able to see a fracture on this study that is slightly limited by motion artifact but I suspect there is an orbital floor fracture without entrapment. Karsten Bledsoe Jr., MD Head CT 11/18/16736 Signed Impressions: Service Date/Time: October 07:44 - CONCLUSION: Thin parafalcine subdural hematoma Rick Ellington MD Cervical Spine CT 11/18/16736 Signed Impressions: Service Date/Time: October 07:44 - CONCLUSION: 1. No fracture or dislocation. 2. Degenerative changes. 3. Calcified plaque involving the carotid arteries. Karsten Bledsoe Jr., MD Other Results Laboratory Tests Test 12/03/16 09:57 Blood Urea Nitrogen 14 Creatinine 0.79 Random Glucose 182 Calcium Level 8.0 Magnesium Level 1.9 Sodium Level 138 Potassium Level 3.7 Chloride Level 101 Carbon Dioxide Level 29.8 Anion Gap 7 Estimat Glomerular Filtration Rate 94 Date/Time Source Procedure Growth Status 11/26/16 17:06 Blood Peripheral Aerobic Blood Culture - Final NO GROWTH IN 5 DAYS Complete 11/26/16 17:06 Blood Peripheral Anaerobic Blood Culture - Final NO GROWTH IN 5 DAYS Complete 11/18/16 09:27 Urine Catheterized Urine Urine Culture - Final Klebsiella Oxytoca Esbl Pos Complete ROS General: Other (unable to obtain ROS) Physical Exam Physical Exam GENERAL: This is a frail, thin built elderly male. SKIN: No rashes, ecchymoses or lesions. Cool and dry. HEAD: Left forehead with laceration, Steri-Strips in place. Left periorbital bruising. EYES: Pupils equal round and reactive, but sluggish. No scleral icterus. No injection or drainage. ENT: Nose without bleeding, purulent drainage or septal hematoma. Throat without erythema, tonsillar hypertrophy or exudate. Uvula midline. Airway patent. NECK: Trachea midline. No JVD or lymphadenopathy. Supple, nontender, no meningeal signs. CARDIOVASCULAR: S1 and S2, sinus tachycardia. No rubs, no gallops, no murmurs. RESPIRATORY: coarse upper airway GASTROINTESTINAL: Abdomen soft, non-tender, nondistended. No hepato-splenomegaly , or palpable masses. No guarding. : large inguinal hernia MUSCULOSKELETAL: Extremities without clubbing, cyanosis, or edema. No joint tenderness, effusion, or edema noted. No calf tenderness. Negative Homans sign bilaterally. Right arm swelling, 2+ edema. PICC line to the right upper arm. NEUROLOGICAL: Lethargic, opens eyes to voice, follows simple commands. Difficult to understand, voice very soft. Urinary Catheter: Yes Assessment to: Continue Anaya insert reason: Obstruction/Retention Vascular Central Line Catheter: Yes Assessment to: Continue Line: PICC Side: Right A/P Diagnosis: (1) Fall ICD Codes: W19.XXXA - Unspecified fall, initial encounter Status: Acute (2) Facial laceration ICD Codes: S01.81XA - Laceration without foreign body of other part of head, initial encounter Status: Acute (3) Subdural hematoma, acute ICD Codes: I62.01 - Nontraumatic acute subdural hemorrhage Status: Acute (4) Fracture of orbital wall ICD Codes: S02.80XA - Fracture of other specified skull and facial bones, unspecified side, initial encounter for closed fracture Status: Acute (5) Tachycardia ICD Codes: R00.0 - Tachycardia, unspecified Status: Acute (6) Frequent falls ICD Codes: R29.6 - Recurrent falls Status: Chronic (7) Ataxia ICD Codes: R27.0 - Ataxia Status: Acute (8) NPH (normal pressure hydrocephalus) ICD Codes: G91.2 - Normal pressure hydrocephalus Status: Chronic (9) Diabetes ICD Codes: E11.9 - Diabetes mellitus Status: Chronic (10) BPH (benign prostatic hyperplasia) ICD Codes: N40.0 - Benign prostatic hyperplasia Status: Chronic (11) Peripheral neuropathy ICD Codes: G62.9 - Peripheral neuropathy Status: Chronic (12) Hyperlipidemia ICD Codes: E78.5 - Hyperlipidemia Status: Chronic (13) Hypertension ICD Codes: I10 - Hypertension Status: Chronic (14) S/P AD[employer]IVE [employer]ICAL EDUCATION SPECIALIST shunt ICD Codes: Z98.2 - Status post ventriculoperitoneal shunt Status: Resolved (15) Chronic indwelling Anaya catheter ICD Codes: Z92.89 - Personal history of other medical treatment Status: Chronic (16) Urinary tract infection ICD Codes: N39.0 - Urinary tract infection, site not specified Status: Acute (17) Impaired cognition ICD Codes: R41.89 - Impaired cognition Status: Chronic Assessment and Plan 81-year-old elderly male with history of NPH has ADAPTIVE PHYSICAL EDUCATION SPECIALIST shunt, recurrent falls, dementia, peripheral neuropathy, physical debility, recurrent UTIs and sepsis. Subdural hematoma, status post fall Left forehead laceration Left orbital floor fracture without entrapment per CT finding -Neurosurgery input appreciated, non surgical management recommended -Continue neuro checks -Fall precautions -Avoid any anticoagulation -appreciate Dr. Shah's input-recommended adjusting ADAPTIVE PHYSICAL EDUCATION SPECIALIST shunt, to 200. -neuro status continues to wax and wane, at times verbal however for the most part lethargic. New onset seizure, likely sec. to SDH. Hallicat called, witnessed seizure per staff -appreciate neurology input -imaging studies reviewed -EEG done, no active seizures -Continue Cerebyx and Keppra -Ativan PRN -Has not had anymore seizures, continue to monitor Sepsis, had new fever, tachy, WBC elevated. ? asp PNA. Recurrent UTI, chronic indwelling catheter. Urine culture positive for Enterobacter cloacae, Klebsiella oxytoca ESBL positive. -Continue with ertapenem -ID input appreciated -Anaya catheter was changed in the emergency room -UC positive for Klebsiella oxytoca ESBL positive. -ID recommended 2 weeks of Ertapenem/OK for PICC if remains afebrile and blood clx are negative @ alt least 72 hrs -has PICC line -Blood cultures remain negative -Chest x-ray with findings for interval development of mixed interstitial alveolar process, possibly pulmonary edema. -Remains afebrile, blood cultures negative. -Continue with DuoNeb's and supplemental oxygen -No fever, WBC trending down. Type 2 diabetes Accu-Cheks before meals and at bedtime with insulin therapy Hypertension, stable -continue home medications Hyperlipidemia Continue with home medications Malnourished Dysphagia -Continue with tube feedings -Monitor residual Right arm swelling, rule out DVT -Ultrasound right arm SCDs for DVT prophylaxis, avoid anticoagulation Fall precautions Keep NPO, high risk for aspiration Patient continues to decline, neuro status remains for the most part obtunded. Occasionally wakes up and response Overall prognosis poor DNR status Appreciate palliative care input is having a difficult time transitioning to comfort care Repeat labs in the morning D/W RN D/W Dr. Greenwood This patient was seen by myself and Dr. Greenwood, this note is written on his behalf Problem Qualifiers (1) Fall: Qualified Codes: W19.XXXA - Unspecified fall, initial encounter (2) Facial laceration: Qualified Codes: S01.81XA - Laceration without foreign body of other part of head, initial encounter (3) Fracture of orbital wall: Qualified Codes: S02.80XA - Fracture of other specified skull and facial bones , unspecified side, initial encounter for closed fracture (4) Diabetes: Qualified Codes: E11.8 - Type 2 diabetes mellitus with unspecified complications (5) BPH (benign prostatic hyperplasia): (6) Peripheral neuropathy: Qualified Codes: G62.9 - Polyneuropathy, unspecified (7) Hyperlipidemia: Qualified Codes: E78.5 - Hyperlipidemia, unspecified (8) Hypertension: Qualified Codes: I10 - Essential (primary) hypertension (9) Urinary tract infection: Qualified Codes: T83.511D - Infection and inflammatory reaction due to indwelling urethral catheter, subsequent encounter; N39.0 - Urinary tract infection, site not specified Joan Martinez Dec 03, 2016 12:59
[2016-12-03] MEDS: SODIUM CHLOR 0.45% 1000 ML INJ 1,000 ML IV SCH (15:28)
--- NOTE | 2016-12-03 15:45 | RADRPT ---
EXAM DATE/TIME: 12/03/2016 14:50 [facility] COMPARISON: No previous studies available for comparison. INDICATIONS : Right arm swelling. MEDICAL HISTORY : Hypercholesterolemia. Hyrdocephalus. Dementia. Seizures. Headache. Hypertension. COPD. Dyspnea. YAHIR D. BPH. Kidney stones. Diabetes. Depression. MRSA. SURGICAL HISTORY : Appendectomy. [employer]ANT shunt. Arteriovenous shunt. Testicular herina repair. Urogenital implants. Right hip surgery. ENCOUNTER: Initial ACUITY: 1 day PAIN SCORE: 0/10 LOCATION: Right arm. FINDINGS: The basilic vein is thrombosed associated with an IV catheter. The thrombus continues into the axilla ry vein. The subclavian vein is patent. Jugular vein is patent with caudal direction of flow. CONCLUSION: Right axillary DVT Rick Ellington MD on December 03, 2016 at 15:43 Board Certified Radiologist. This report was verified electronically.
[2016-12-03] MEDS: ERTAPENEM INJ 1,000 MG in SODIUM CHLORIDE 0.9% INJ 100 ML IV SCH (18:05)
--- NOTE | 2016-12-03 20:03 | HHI.HCPN ---
Reason for visit a. To assist with evaluation and management of symptoms including: pain, confusion, dyspnea. b. To assist medical decision maker(s) with: better understanding of current medical conditions; weighing benefits/burdens of medical treatment options; making medical treatment decisions. . Subjective/Interval History Patient seen and examined in room. and son, Sven at bedside. Patient remains minimally responsive. Opens eyes intermittently. Not really tracking. Does not follow commands for me. Profound weakness. Weak cough and congestion noted. Afebrile. Tachycardic. Blood pressure stable. On oxygen via NC. Tolerating NG tube feedings. Liquid stools reported. Right upper arm swelling. Upper extremity ultrasound pending. . Family/friend interactions Met with patient's and son at bedside. Also present Betty Cronin LCSW. Advised that she will need to be making a decision regarding PEG tube in the coming days as it does not appear that the patient will be able to wean from official nutrition or eat on his own. She asks to step outside the room and indicates that she does not want PEG tube. She reviews when her siblings had to make this decision for her mother, reports she is seeing signs that her is not going to improve this time. We reviewed the patient is finishing the course of antibiotics. She verbalizes clearly that she wants her to be comfortable and dignified. We talked about hospice services, that the patient could continue oxygen and even tube feeding if that is decided. Reviewed that medications for seizure prevention, insulin (if they elect to continue TF) and comfort meds would be continued. We discussed antibiotics would not be continued and that I would recommend against treatment of infection in the future given disease progression and overall limited life expectancy. We then had this conversation with the patient's son, Sven, spouse and son Mihai (and his ) via telephone. All family are in agreement with plan to transition to comfort focused care with hospice support. Anticipate this patient will need hospice care center placement. Reviewed hospice services and all above information again. Family agreed to hospice consult, anticipate they will make a decision to transition patient from hospital to hospice care center wants son Mihai arrives from [place] on Tuesday or Tuesday. Questions answered to their satisfaction. Family is very appreciative of the time spent. Total time spent 90 minutes. . Advance Directives Living Will: Completed, but not made available Health Care Surrogate: Copy in medical record Advance Directive Specifics Date completed: 02/23/2007 . Health Care Surrogate(s): Patient admitted his , Radha Sims, as his healthcare surrogate decision maker. His son, Mihai Sims, is designated as the alternate health care decision maker. . Documented care wishes: Patient has completed a living will. Family will attempt to find the document and bring it to the family meeting planned for tomorrow 11/23/2016 . Significant change in goals: NO CODE. Hospice consulted, anticipate transition to comfort focused care on Tuesday once son Mihai arrives from [place]. . Objective Vital Signs Date Time Temp Pulse Resp B/P (MAP) Pulse Ox O2 Delivery O2 Flow Rate FiO2 12/03/16 16:29 97.8 100 19 113/55 (74) 95 12/03/16 14:01 104 12/03/16 12:17 98.2 93 19 110/60 (77) 97 12/03/16 08:17 98.3 109 19 119/60 (79) 96 12/03/16 04:35 98.2 106 22 116/55 (75) 90 12/03/16 00:00 98.1 109 22 105/78 (87) 93 12/02/16 23:15 95 12/02/16 20:37 98.5 102 19 111/58 (75) 93 Physical Exam CONSTITUTIONAL/GENERAL: This is a frail, elderly male in no apparent distress. TUBES/LINES/DRAINS: nasal cannula, NG, Anaya catheter, PIV. SKIN: No jaundice, rashes, or lesions. Ecchymoses on upper extremities and left eye. No wounds seen anteriorly. Skin temperature appropriate. Not diaphoretic. CARDIOVASCULAR: tachycardic RESPIRATORY/CHEST: scattered course breath sounds, orotracheal secretions GASTROINTESTINAL: Abdomen soft, non-tender, rounded. + bowel sounds. GENITOURINARY: Without palpable bladder distension. Anaya. + scrotal edema. MUSCULOSKELETAL: Extremities with edema. No mottling or clubbing. NEUROLOGICAL: Eyes closed. Nonverbal, does not follow commands. Withdraws bilateral lower extremities PSYCHIATRIC: Unable to assess secondary to patient's clinical condition. . Diagnostic Tests Laboratory Laboratory Tests Test 11/30/16 20:23 12/01/16 05:29 12/02/16 04:21 12/03/16 09:57 White Blood Count 14.9 TH/MM3 (4.0-11.0) 13.9 TH/MM3 (4.0-11.0) Red Blood Count 4.03 MIL/MM3 (4.50-5.90) 4.16 MIL/MM3 (4.50-5.90) Hemoglobin 11.0 GM/DL (13.0-17.0) 11.5 GM/DL (13.0-17.0) Hematocrit 34.5 % (39.0-51.0) 35.9 % (39.0-51.0) Mean Corpuscular Volume 85.7 FL (80.0-100.0) 86.4 FL (80.0-100.0) Mean Corpuscular Hemoglobin 27.4 PG (27.0-34.0) 27.6 PG (27.0-34.0) Mean Corpuscular Hemoglobin Concent 31.9 % (32.0-36.0) 32.0 % (32.0-36.0) Red Cell Distribution Width 15.3 % (11.6-17.2) 15.7 % (11.6-17.2) Platelet Count 341 TH/MM3 (150-450) 311 TH/MM3 (150-450) Mean Platelet Volume 9.6 FL (7.0-11.0) 9.4 FL (7.0-11.0) Blood Urea Nitrogen 22 MG/DL (7-18) 22 MG/DL (7-18) 14 MG/DL (7-18) Creatinine 0.64 MG/DL (0.60-1.30) 0.75 MG/DL (0.60-1.30) 0.79 MG/DL (0.60-1.30) Random Glucose 161 MG/DL (74-106) 144 MG/DL (74-106) 182 MG/DL (74-106) Calcium Level 7.6 MG/DL (8.5-10.1) 7.7 MG/DL (8.5-10.1) 8.0 MG/DL (8.5-10.1) Sodium Level 143 MEQ/L (136-145) 143 MEQ/L (136-145) 138 MEQ/L (136-145) Potassium Level 3.7 MEQ/L (3.5-5.1) 3.7 MEQ/L (3.5-5.1) 3.7 MEQ/L (3.5-5.1) Chloride Level 107 MEQ/L (98-107) 105 MEQ/L (98-107) 101 MEQ/L (98-107) Carbon Dioxide Level 29.4 MEQ/L (21.0-32.0) 31.3 MEQ/L (21.0-32.0) 29.8 MEQ/L (21.0-32.0) Anion Gap 7 MEQ/L (5-15) 7 MEQ/L (5-15) 7 MEQ/L (5-15) Estimat Glomerular Filtration Rate 120 ML/MIN (>89) 100 ML/MIN (>89) 94 ML/MIN (>89) Phenytoin (Dilantin) Level 9.5 MCG/ML (10.0-20.0) 10.6 MCG/ML (10.0-20.0) Magnesium Level 1.9 MG/DL (1.5-2.5) Result Diagram: 12/01/16 0529 12/03/16 0957 Microbiology Microbiology Date/Time Source Procedure Growth Status 11/26/16 17:06 Blood Peripheral Aerobic Blood Culture - Final NO GROWTH IN 5 DAYS Complete 11/26/16 17:06 Blood Peripheral Anaerobic Blood Culture - Final NO GROWTH IN 5 DAYS Complete 11/18/16 09:27 Urine Catheterized Urine Urine Culture - Final Klebsiella Oxytoca Esbl Pos Complete Imaging Last Impressions Upper Extremity Ultrasound 12/03/16 0000 Signed Impressions: Service Date/Time: Saturday, December 03, 2016 14:50 - CONCLUSION: Right axillary DVT Rick Ellington MD Neck CTA 11/26/16307 Signed Impressions: Service Date/Time: Saturday, November 26, 2016 03:33 - CONCLUSION: 1. Calcified plaque in the origin of the internal carotid arteries bilaterally with resultant 45-50%% stenosis on the right and 20%% stenosis on the left. 2. Patent bilateral vertebral arteries. 3. Moderate to large left pleural effusion. 4. 2.2 cm right thyroid nodule. Selvin Bernstein MD Head CTA 11/26/16307 Signed Impressions: Service Date/Time: Saturday, November 26, 2016 03:33 - CONCLUSION: 1. Unremarkable CTA examination without evidence for intracranial large vessel occlusion or stenosis. Selvin Bernstein MD Head CT 11/26/16 0000 Signed Impressions: Service Date/Time: Saturday, November 26, 2016 03:27 - CONCLUSION: 1. 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 2. Stable right RECORDS MANAGEMENT SPECIALIST shunt catheter with stable ventricular size and small amount of intraventricular blood products. 3. Otherwise, no significant interval change. Selvin Bernstein MD Chest X-Ray 11/26/16 Signed Impressions: Service Date/Time: Saturday, November 26, 2016 13:20 - CONCLUSION: Interval development of bilateral mixed interstitial and alveolar process could represent pulmonary edema. Melissa Parker MD Maxillofacial CT 11/18/16 0737 Signed Impressions: Service Date/Time: October 07:44 - CONCLUSION: 1. There is extraconal air within the left orbit with periorbital soft tissue swelling. I' m not clearly able to see a fracture on this study that is slightly limited by motion artifact but I suspect there is an orbital floor fracture without entrapment. Karsten Bledsoe Jr., MD Cervical Spine CT 11/18/16 0737 Signed Impressions: Service Date/Time: October 07:44 - CONCLUSION: 1. No fracture or dislocation. 2. Degenerative changes. 3. Calcified plaque involving the carotid arteries. Karsten Bledsoe Jr., MD Assessment and Plan Disease Oriented Problem List: (1) Altered mental status, unspecified (2) UTI (3) Facial laceration (4) Fracture of orbital wall (5) Chronic indwelling Anaay catheter (6) NPH (normal pressure hydrocephalus) (7) Diabetes (8) BPH (benign prostatic hyperplasia) (9) Diabetes mellitus type 2, uncontrolled (10) Hyperlipidemia (11) Hypertension Symptom Scale: (1) Confusion 0-10 Scale: Unable to quantify (2) Debility 0-10 Scale: Unable to quantify (3) Dyspnea 0-10 Scale: Unable to quantify (4) Dysphagia 0-10 Scale: Unable to quantify Pertinent Non-Medical Issues Psychosocial: Spoke with patient via telephone and was directed to call her son (Mihai) to coordinate any family meetings. Spoke with patient's son and [id number] (Mihai and Alba) via telephone for >1 hour. Discussed patient's current clinical condition, overall decline and prognosis. Questions answered to the best of my ability. Tentative family meeting scheduled for tomorrow 11/23/2016 at 1 PM. Spiritual: Caodaism maxine Legal: Patient admitted his , Radha Sims, as his healthcare surrogate decision maker. His son, Mihai Sims, is designated as the alternate health care decision maker. Ethical issues impacting care: No known ethical issues impacting care at this time . Important Contacts Alla Sims, : [phone] or [phone] Mihai Sims, son: [phone] . Prognosis Patient is an 81-year-old male with a complex medical history who has experienced an acute decline over the past year. Family states in the past 12 months, he has spent more time in the hospital or SNF benefit home in the past 12 months. Experiencing decreased mentation and dysphasia in addition to significant deconditioning. Clinically deteriorating, more obtunded with new onset seizures. Patient has certainly hospice appropriate, his overall prognosis is quite poor. . Code Status: No Code Plan * NO CODE-DNR/DNI * Decision-making: Patient admitted his , Radha Sims, as his healthcare surrogate decision maker. His son, Mihai Sims, is designated as the alternate health care decision maker. Patient's wishes to make all decisions in conjunction with her son, Mihai. * 12/03/16: Spoke with and sons (Sven at bedside and Mihai via phone). indicates that she does not want PEG tube. She reviews when her siblings had to make this decision for her mother, reports she is seeing signs that her is not going to improve this time. We reviewed the patient is finishing the course of antibiotics. She verbalizes clearly that she wants her to be comfortable and dignified. We talked about hospice services, that the patient could continue oxygen and even tube feeding if that is decided. Reviewed that medications for seizure prevention, insulin (if they elect to continue TF) and comfort meds would be continued. We discussed antibiotics would not be continued and that I would recommend against treatment of infection in the future given disease progression and overall limited life expectancy. * Hospice consulted. Anticipate transition to hospice care center once son Mihai and his arrive from [place] on Tuesday. Discussed with Ewa, hospice admission nurse. * Discussed with JAEL Centeno. * Symptom management: = Confusion: Patient with some baseline dementia, now with acute change in mental status. NPH with RECORDS MANAGEMENT SPECIALIST shunt placement. Dr. Shah follows. Per Dr. Shah, patient has sustained a recent syncopal episode with secondary ischemic or hypoxic encephalopathy, possibly with further contribution of urosepsis/hypertension.He does have mild primarily frontoparietal subdural effusions noted on his most recent CT scan. A prior study will be located for comparison, but this is unlikely a cause of his present mental status changes. Patient is stuporous. Non verbal, does not follow commands. Withdraws bilateral lower extremities = Dysphagia: Tolerating tube feeding. I expect family will DC NG feedings if NG gets pulled out and once transitioned to hospice setting. = Debility: Significant deconditioning likely related to multiple co -morbid conditions in addition to recent acute decline; he has not improved after several months in an SNF with rehabilitation. = Pain: potential sources include general debility, infection, bedbound status, recent fall and bleed. Intermittent furrowed brow and grimacing. Pain recs per hospice attending. * Palliative care will continue to follow this patient to establish trust, provide ongoing support and education. . Attestation To help prompt me to consider important information that might be impacting today's encounter and assessment, information from prior notes written by myself or my colleagues may have been "brought forward" into today's note. My signature on this note, however, is an attestation that I personally performed the exam, history, and/or decision-making noted today, and, unless otherwise indicated, the interactions with patient, family, and staff as well as the review of records all occurred today. I also attest that the listed assessment and stated plan reflect my best clinical judgment today based on the combination of historical information, prior notes, and today's exam/ interactions. When time spent is documented, it refers only to time spent today by the signer, or if indicated, combined time spent today by collaborating physician/nurse practitioner. Mona Ybarra Dec 03, 2016 20:03
[2016-12-03 20:27] LABS: HEMATOCRIT 37.6 % (39.0-51.0); MEAN CELL VOLUME 86.5 FL (80.0-100.0); MEAN CORPUSCULAR HEMOGLOBIN 27.7 PG (27.0-34.0); PLATELET COUNT 323 TH/MM3 (150-450); RED BLOOD COUNT 4.34 MIL/MM3 (4.50-5.90); RED CELL DISTRIBUTION WIDTH 15.4 % (11.6-17.2); REVIEW FLAG FINAL; WHITE BLOOD COUNT 10.7 TH/MM3 (4.0-11.0)
[2016-12-03] MEDS: POLYETHYLENE GLYCOL 17 GM PKG PO SCH (21:00)
[2016-12-04] VITALS (7 sets, daily range): BP systolic 105–118; BP diastolic 50–73; PULSE 101–113; RESP 19–21; TEMP 97.3–100; O2SAT 89–97
[2016-12-04] MEDS: levETIRAcetam 1000 MG INJ 100 ML IV SCH ×2 (03:41→15:21)
[2016-12-04] MEDS: PHENYTOIN INJ 100 MG/2 ML VIAL IV SCH ×3 (05:10→21:57)
[2016-12-04 07:34] LABS: C. DIFF EPI 027 PRESUMPTIVE POSITIVE (NEGATIVE)
[2016-12-04] MEDS: METOPROLOL TARTRATE 25 MG TAB PO SCH ×2 (08:44→21:00)
[2016-12-04] MEDS: LISINOPRIL 5 MG TAB PO SCH (08:44)
[2016-12-04] MEDS: FAMOTIDINE 20 MG TAB PO SCH (08:44)
[2016-12-04] MEDS: METOCLOPRAMIDE HCL 10 MG TAB PO SCH ×3 (08:44→17:03)
[2016-12-04] MEDS: DOCUSATE SODIUM 100 MG/10 ML UDC PO SCH ×3 (08:45→21:53)
[2016-12-04] MEDS: PRAVASTATIN SOD 20 MG TAB PO SCH (08:45)
[2016-12-04] MEDS: INSULIN ASPART SUPPLEMENTAL SCALE SQ SCH ×4 (08:47→21:56)
[2016-12-04] MEDS: FOSPHENYTOIN SODIUM 100 MG PE/2 ML VIAL IV SCH ×2 (11:17→21:53)
[2016-12-04 11:28] LABS: HEMATOCRIT 34.8 % (39.0-51.0); MEAN CELL VOLUME 84.8 FL (80.0-100.0); MEAN CORPUSCULAR HEMOGLOBIN 27.1 PG (27.0-34.0); PLATELET COUNT 335 TH/MM3 (150-450); RED CELL DISTRIBUTION WIDTH 15.7 % (11.6-17.2); REVIEW FLAG FINAL; WHITE BLOOD COUNT 11.2 TH/MM3 (4.0-11.0)
[2016-12-04 11:57] LABS: BICARBONATE 28.6 MEQ/L (21.0-32.0); POTASSIUM 4.1 MEQ/L (3.5-5.1)
--- NOTE | 2016-12-04 13:03 | HHI.PR ---
Subjective Remarks Patient is not opening his eyes, not following simple commands. On some pain stimulus he moans Looking weak Right arm with swelling No fever Difficult to obtain ROS Per nursing, has been having liquid stools Objective Objective Results - Vital Signs Date Time Temp Pulse Resp B/P (MAP) Pulse Ox O2 Delivery O2 Flow Rate FiO2 12/04/16 12:41 99.2 101 20 105/51 (69) 89 12/04/16 08:06 97.4 108 19 118/60 (79) 97 12/04/16 04:00 97.3 107 20 114/66 (82) 94 12/04/16 03:37 98.5 105 20 115/73 (87) 94 12/03/16 23:51 99.6 110 20 120/56 (77) 93 12/03/16 23:40 100 12/03/16 20:24 98.6 104 19 117/55 (75) 97 12/03/16 16:29 97.8 100 19 113/55 (74) 95 12/03/16 14:01 104 I/O 12/03/16 12/03/16 12/03/16 12/04/16 12/04/16 12/04/16 07:00 15:00 23:00 07:00 15:00 23:00 Intake Total 300 ml Output Total 1700 ml 650 ml 1100 ml 1802 ml 1000 ml Balance -1700 ml -650 ml -1100 ml -1802 ml -700 ml Other 300 ml Output Urine Total 1700 ml 650 ml 1100 ml 1800 ml 1000 ml Stool Total 2 ml # Bowel Movements 1 1 1 Result Diagram: 12/04/16 1035 12/04/16 1035 Imaging Last Impressions Chest X-Ray 11/18/16737 Signed Impressions: Service Date/Time: October 07:52 - CONCLUSION: No acute cardiac pulmonary disease. Karsten Bledsoe Jr., MD Maxillofacial CT 11/18/16736 Signed Impressions: Service Date/Time: October 07:44 - CONCLUSION: 1. There is extraconal air within the left orbit with periorbital soft tissue swelling. I' m not clearly able to see a fracture on this study that is slightly limited by motion artifact but I suspect there is an orbital floor fracture without entrapment. Karsten Bledsoe Jr., MD Head CT 11/18/16736 Signed Impressions: Service Date/Time: October 07:44 - CONCLUSION: Thin parafalcine subdural hematoma Rick Ellington MD Cervical Spine CT 11/18/1637 Signed Impressions: Service Date/Time: October 07:44 - CONCLUSION: 1. No fracture or dislocation. 2. Degenerative changes. 3. Calcified plaque involving the carotid arteries. Karsten Bledsoe Jr., MD Other Results Laboratory Tests Test 12/03/16 19:45 12/04/16 06:05 12/04/16 10:35 White Blood Count 10.7 11.2 Red Blood Count 4.34 4.10 Hemoglobin 12.0 11.1 Hematocrit 37.6 34.8 Mean Corpuscular Volume 86.5 84.8 Mean Corpuscular Hemoglobin 27.7 27.1 Mean Corpuscular Hemoglobin Concent 32.0 32.0 Red Cell Distribution Width 15.4 15.7 Platelet Count 323 335 Mean Platelet Volume 9.0 9.0 Stool C. difficile Toxin (PCR) POSITIVE Stl C. difficile Toxin Epiderm 027 PRESUMPTIVE POSITIVE Blood Urea Nitrogen 14 Creatinine 0.79 Random Glucose 189 Calcium Level 8.5 Sodium Level 137 Potassium Level 4.1 Chloride Level 102 Carbon Dioxide Level 28.6 Anion Gap 6 Estimat Glomerular Filtration Rate 94 Phenytoin (Dilantin) Level 13.1 Date/Time Source Procedure Growth Status 11/26/16 17:06 Blood Peripheral Aerobic Blood Culture - Final NO GROWTH IN 5 DAYS Complete 11/26/16 17:06 Blood Peripheral Anaerobic Blood Culture - Final NO GROWTH IN 5 DAYS Complete 11/18/16 09:27 Urine Catheterized Urine Urine Culture - Final Klebsiella Oxytoca Esbl Pos Complete Physical Exam Physical Exam GENERAL: This is a frail, thin built elderly male. Looking weak SKIN: No rashes, ecchymoses or lesions. Cool and dry. HEAD: Left forehead with laceration, Steri-Strips in place. Left periorbital bruising. EYES: Pupils equal round and reactive, but sluggish. No scleral icterus. No injection or drainage. ENT: Nose without bleeding, purulent drainage or septal hematoma. Airway patent. NECK: Trachea midline. No JVD or lymphadenopathy. Supple, nontender, no meningeal signs. CARDIOVASCULAR: S1 and S2, sinus tachycardia. No rubs, no gallops, no murmurs. RESPIRATORY: coarse upper airway GASTROINTESTINAL: Abdomen soft, non-tender, nondistended. No hepato-splenomegaly , or palpable masses. No guarding. : large inguinal hernia MUSCULOSKELETAL: Extremities without clubbing, cyanosis, or edema. No joint tenderness, effusion, or edema noted. No calf tenderness. Negative Homans sign bilaterally. Right arm swelling, 2+ edema. NEUROLOGICAL: Not opening his eyes to voice, not following any commands. As per RN he followed some commands this morning. Urinary Catheter: Yes Assessment to: Continue Anaya insert reason: Obstruction/Retention Vascular Central Line Catheter: Yes Assessment to: Continue Line: PICC Side: Right Line: PICC Side: Right A/P Assessment and Plan (1) Fall ICD Codes: W19.XXXA - Unspecified fall, initial encounter Status: Acute (2) Facial laceration ICD Codes: S01.81XA - Laceration without foreign body of other part of head, initial encounter Status: Acute (3) Subdural hematoma, acute ICD Codes: I62.01 - Nontraumatic acute subdural hemorrhage Status: Acute (4) Fracture of orbital wall ICD Codes: S02.80XA - Fracture of other specified skull and facial bones, unspecified side, initial encounter for closed fracture Status: Acute (5) Tachycardia ICD Codes: R00.0 - Tachycardia, unspecified Status: Acute (6) Frequent falls ICD Codes: R29.6 - Recurrent falls Status: Chronic (7) Ataxia ICD Codes: R27.0 - Ataxia Status: Acute (8) NPH (normal pressure hydrocephalus) ICD Codes: G91.2 - Normal pressure hydrocephalus Status: Chronic (9) Diabetes ICD Codes: E11.9 - Diabetes mellitus Status: Chronic (10) BPH (benign prostatic hyperplasia) ICD Codes: N40.0 - Benign prostatic hyperplasia Status: Chronic (11) Peripheral neuropathy ICD Codes: G62.9 - Peripheral neuropathy Status: Chronic (12) Hyperlipidemia ICD Codes: E78.5 - Hyperlipidemia Status: Chronic (13) Hypertension ICD Codes: I10 - Hypertension Status: Chronic (14) S/P MACHINE SNELLER shunt ICD Codes: Z98.2 - Status post ventriculoperitoneal shunt Status: Resolved (15) Chronic indwelling Anaya catheter ICD Codes: Z92.89 - Personal history of other medical treatment Status: Chronic (16) Urinary tract infection ICD Codes: N39.0 - Urinary tract infection, site not specified Status: Acute (17) Impaired cognition ICD Codes: R41.89 - Impaired cognition Status: Chronic 18 C. difficile colitis Plan 81-year-old elderly male with history of NPH has MACHINE SNELLER shunt, recurrent falls, dementia, peripheral neuropathy, physical debility, recurrent UTIs and sepsis. Subdural hematoma, status post fall Left forehead laceration Left orbital floor fracture without entrapment per CT finding -Neurosurgery input appreciated, non surgical management recommended -Continue neuro checks -Fall precautions -Avoid any anticoagulation -appreciate Dr. Shah's input-recommended adjusting MACHINE SNELLER shunt, to 200. -neuro status continues to wax and wane, at times open his eyes was most of the time the sleeping and occasionally following commands as discussed with RN. New onset seizure, likely sec. to SDH. Jeevant called, witnessed seizure per staff -appreciate neurology input -imaging studies reviewed -EEG done, no active seizures -Continue Cerebyx and Keppra -Ativan PRN -Has not had anymore seizures, continue to monitor Sepsis, had new fever, tachy, WBC elevated. ? asp PNA. Recurrent UTI, chronic indwelling catheter. Urine culture positive for Enterobacter cloacae, Klebsiella oxytoca ESBL positive. -Continue with ertapenem -ID input appreciated -Anaya catheter was changed in the emergency room -UC positive for Klebsiella oxytoca ESBL positive. -ID recommended 2 weeks of Ertapenem/OK for PICC if remains afebrile and blood clx are negative @ alt least 72 hrs -has PICC line -Blood cultures remain negative -Chest x-ray with findings for interval development of mixed interstitial alveolar process, possibly pulmonary edema. -Remains afebrile, blood cultures negative. -Continue with DuoNeb's and supplemental oxygen -No fever, WBC trending down. Type 2 diabetes Accu-Cheks before meals and at bedtime with insulin therapy Hypertension, stable -continue home medications Hyperlipidemia Continue with home medications Malnourished Dysphagia -Continue with tube feedings -Monitor residual Right arm swelling, -Ultrasound right arm showing DVT. Not be able to start anticoagulation because of recent brain bleed C. difficile colitis -Start vancomycin via NG tube SCDs for DVT prophylaxis, avoid anticoagulation Fall precautions Keep NPO, high risk for aspiration NG tube feeding Patient continues to decline, neuro status remains for the most part obtunded. Occasionally wakes up and response Overall prognosis poor DNR status Appreciate palliative care input is having a difficult time transitioning to comfort care Repeat labs in the morning D/W RN Radhames Greenwood MD Dec 04, 2016 13:03
[2016-12-04] MEDS: HYOSCYAMINE SOLN 0.125 MG/ML 15 ML BTL PO PRN (13:51)
[2016-12-04] MEDS: ERTAPENEM INJ 1,000 MG in SODIUM CHLORIDE 0.9% INJ 100 ML IV SCH (17:03)
[2016-12-04] MEDS: VANCOMYCIN 500 MG VIAL (FOR ORAL USE ONLY) PO SCH ×2 (17:06→21:54)
[2016-12-04] MEDS: POLYETHYLENE GLYCOL 17 GM PKG PO SCH ×2 (21:00→21:53)
[2016-12-04] MEDS: SODIUM CHLOR 0.45% 1000 ML INJ 1,000 ML IV SCH (21:54)
[2016-12-04] MEDS: ACETAMINOPHEN 325 MG TAB PO PRN (22:17)
[2016-12-05] VITALS: BP 93/46; PULSE 97; RESP 21; TEMP 99.1; O2SAT 89
[2016-12-05] MEDS: HYOSCYAMINE SOLN 0.125 MG/ML 15 ML BTL PO PRN ×2 (01:01→08:14)
[2016-12-05] MEDS: levETIRAcetam 1000 MG INJ 100 ML IV SCH ×2 (03:01→16:00)
[2016-12-05 04:13] VITALS: BP 99/59; PULSE 101; RESP 20; TEMP 99.1; O2SAT 91
[2016-12-05] MEDS: PHENYTOIN INJ 100 MG/2 ML VIAL IV SCH ×2 (05:35→12:46)
[2016-12-05 08:00] VITALS: BP 104/49; PULSE 103; RESP 21; TEMP 98.9; O2SAT 91
[2016-12-05] MEDS: FOSPHENYTOIN SODIUM 100 MG PE/2 ML VIAL IV SCH (08:00)
[2016-12-05] MEDS: FAMOTIDINE 20 MG TAB PO SCH (08:01)
[2016-12-05] MEDS: LISINOPRIL 5 MG TAB PO SCH (08:01)
[2016-12-05] MEDS: PRAVASTATIN SOD 20 MG TAB PO SCH (08:01)
[2016-12-05] MEDS: METOPROLOL TARTRATE 25 MG TAB PO SCH (08:01)
[2016-12-05] MEDS: VANCOMYCIN 500 MG VIAL (FOR ORAL USE ONLY) PO SCH ×3 (08:02→17:13)
[2016-12-05] MEDS: DOCUSATE SODIUM 100 MG/10 ML UDC PO SCH (08:02)
[2016-12-05] MEDS: METOCLOPRAMIDE HCL 10 MG TAB PO SCH ×3 (08:02→17:00)
[2016-12-05] MEDS: INSULIN ASPART SUPPLEMENTAL SCALE SQ SCH ×3 (08:33→17:13)
[2016-12-05 10:33] LABS: HEMATOCRIT 35.5 % (39.0-51.0); MEAN CELL VOLUME 85.4 FL (80.0-100.0); MEAN CORPUSCULAR HEMOGLOBIN 28.2 PG (27.0-34.0); PLATELET COUNT 327 TH/MM3 (150-450); RED BLOOD COUNT 4.15 MIL/MM3 (4.50-5.90); RED CELL DISTRIBUTION WIDTH 15.8 % (11.6-17.2); REVIEW FLAG FINAL
--- NOTE | 2016-12-05 10:40 | HHI.PR ---
Subjective Remarks Lethargic Nonverbal Tolerating tube feedings well Fever last night, max 100 Unable to obtain ROS Right arm swelling Objective Objective Results - Vital Signs Date Time Temp Pulse Resp B/P (MAP) Pulse Ox O2 Delivery O2 Flow Rate FiO2 12/05/16 08:00 98.9 103 21 104/49 (67) 91 12/05/16 04:13 99.1 101 20 99/59 (72) 91 12/05/16 00:00 99.1 97 21 93/46 (62) 89 12/04/16 20:30 100.0 113 21 108/55 (72) 94 12/04/16 16:43 99.0 101 21 108/50 (69) 93 12/04/16 14:58 104 12/04/16 12:41 99.2 101 20 105/51 (69) 89 I/O 12/04/16 12/04/16 12/04/16 12/05/16 12/05/16 12/05/16 07:00 15:00 23:00 07:00 15:00 23:00 Intake Total 300 ml 903 ml 200 ml Output Total 1802 ml 1000 ml Balance -1802 ml -700 ml 903 ml 200 ml IV Total 903 ml Other 300 ml 200 ml Output Urine Total 1800 ml 1000 ml Stool Total 2 ml Result Diagram: 12/05/16 1010 12/04/16 1035 Imaging Last Impressions Chest X-Ray 11/18/16737 Signed Impressions: Service Date/Time: October 07:52 - CONCLUSION: No acute cardiac pulmonary disease. Karsten Bledsoe Jr., MD Maxillofacial CT 11/18/16736 Signed Impressions: Service Date/Time: October 07:44 - CONCLUSION: 1. There is extraconal air within the left orbit with periorbital soft tissue swelling. I' m not clearly able to see a fracture on this study that is slightly limited by motion artifact but I suspect there is an orbital floor fracture without entrapment. Karsten Bledsoe Jr., MD Head CT 11/18/16736 Signed Impressions: Service Date/Time: October 07:44 - CONCLUSION: Thin parafalcine subdural hematoma Rick Ellington MD Cervical Spine CT 11/18/16736 Signed Impressions: Service Date/Time: October 07:44 - CONCLUSION: 1. No fracture or dislocation. 2. Degenerative changes. 3. Calcified plaque involving the carotid arteries. Karsten Bledsoe Jr., MD Other Results Laboratory Tests Test 12/05/16 10:10 White Blood Count 12.0 Red Blood Count 4.15 Hemoglobin 11.7 Hematocrit 35.5 Mean Corpuscular Volume 85.4 Mean Corpuscular Hemoglobin 28.2 Mean Corpuscular Hemoglobin Concent 33.0 Red Cell Distribution Width 15.8 Platelet Count 327 Mean Platelet Volume 8.9 Date/Time Source Procedure Growth Status 12/05/16 10:15 Blood Peripheral Aerobic Blood Culture Pending Received 12/05/16 10:15 Blood Peripheral Anaerobic Blood Culture Pending Received 11/18/16 09:27 Urine Catheterized Urine Urine Culture - Final Klebsiella Oxytoca Esbl Pos Complete ROS General: Other (unable to obtain ROS) Physical Exam Physical Exam GENERAL: This is a frail, thin built elderly male. SKIN: No rashes, ecchymoses or lesions. Cool and dry. HEAD: Left forehead with laceration, Steri-Strips in place. Left periorbital bruising. EYES: Pupils equal round and reactive, but sluggish. No scleral icterus. No injection or drainage. ENT: Nose without bleeding, purulent drainage or septal hematoma. Throat without erythema, tonsillar hypertrophy or exudate. Uvula midline. Airway patent. NECK: Trachea midline. No JVD or lymphadenopathy. Supple, nontender, no meningeal signs. CARDIOVASCULAR: S1 and S2, sinus tachycardia. No rubs, no gallops, no murmurs. RESPIRATORY: coarse upper airway GASTROINTESTINAL: Abdomen soft, non-tender, nondistended. No hepato-splenomegaly , or palpable masses. No guarding. NG tube with tube feedings. : large inguinal hernia MUSCULOSKELETAL: Extremities without clubbing, cyanosis, or edema. No joint tenderness, effusion, or edema noted. No calf tenderness. Negative Homans sign bilaterally. Right arm swelling, 2+ edema. NEUROLOGICAL: Nonverbal, lethargic. Urinary Catheter: Yes Assessment to: Continue Anaya insert reason: Obstruction/Retention Vascular Central Line Catheter: Yes Assessment to: Continue Line: PICC Side: Right A/P Diagnosis: (1) Fall ICD Codes: W19.XXXA - Unspecified fall, initial encounter Status: Acute (2) Facial laceration ICD Codes: S01.81XA - Laceration without foreign body of other part of head, initial encounter Status: Acute (3) Subdural hematoma, acute ICD Codes: I62.01 - Nontraumatic acute subdural hemorrhage Status: Acute (4) Fracture of orbital wall ICD Codes: S02.80XA - Fracture of other specified skull and facial bones, unspecified side, initial encounter for closed fracture Status: Acute (5) Tachycardia ICD Codes: R00.0 - Tachycardia, unspecified Status: Acute (6) Frequent falls ICD Codes: R29.6 - Recurrent falls Status: Chronic (7) Ataxia ICD Codes: R27.0 - Ataxia Status: Acute (8) NPH (normal pressure hydrocephalus) ICD Codes: G91.2 - Normal pressure hydrocephalus Status: Chronic (9) Diabetes ICD Codes: E11.9 - Diabetes mellitus Status: Chronic (10) BPH (benign prostatic hyperplasia) ICD Codes: N40.0 - Benign prostatic hyperplasia Status: Chronic (11) Peripheral neuropathy ICD Codes: G62.9 - Peripheral neuropathy Status: Chronic (12) Hyperlipidemia ICD Codes: E78.5 - Hyperlipidemia Status: Chronic (13) Hypertension ICD Codes: I10 - Hypertension Status: Chronic (14) S/P C[employer] DEVELOPMENT MANAGER shunt ICD Codes: Z98.2 - Status post ventriculoperitoneal shunt Status: Resolved (15) Chronic indwelling Anaya catheter ICD Codes: Z92.89 - Personal history of other medical treatment Status: Chronic (16) Urinary tract infection ICD Codes: N39.0 - Urinary tract infection, site not specified Status: Acute (17) Impaired cognition ICD Codes: R41.89 - Impaired cognition Status: Chronic (18) DVT of right axillary vein, acute ICD Codes: I82.A11 - Acute embolism and thrombosis of right axillary vein Assessment and Plan 81-year-old elderly male with history of NPH has CATEGORY DEVELOPMENT MANAGER shunt, recurrent falls, dementia, peripheral neuropathy, physical debility, recurrent UTIs and sepsis. Subdural hematoma, status post fall Left forehead laceration Left orbital floor fracture without entrapment per CT finding -Neurosurgery input appreciated, non surgical management recommended -Continue neuro checks -Fall precautions -Avoid any anticoagulation -appreciate Dr. Shah's input-recommended adjusting CATEGORY DEVELOPMENT MANAGER shunt, to 200. -Patient not improving, remains lethargic. New onset seizure, likely sec. to SDH. Hallicat called, witnessed seizure per staff -appreciate neurology input -imaging studies reviewed -EEG done, no active seizures -Continue Cerebyx and Keppra -Ativan PRN -Has not had anymore seizures, continue to monitor Sepsis, had new fever, tachy, WBC elevated. ? asp PNA. Recurrent UTI, chronic indwelling catheter. Urine culture positive for Enterobacter cloacae, Klebsiella oxytoca ESBL positive. -ID input appreciated -Anaya catheter was changed in the emergency room -UC positive for Klebsiella oxytoca ESBL positive. Continue with ertapenem -Blood cultures remain negative -Chest x-ray with findings for interval development of mixed interstitial alveolar process, possibly pulmonary edema. -Continue with DuoNeb's and supplemental oxygen -Febrile last night, blood culture repeated Type 2 diabetes Accu-Cheks before meals and at bedtime with insulin therapy Hypertension, stable -continue home medications Hyperlipidemia Continue with home medications Malnourished Dysphagia -Continue with tube feedings -Monitor residual Right arm swelling, positive for axillary DVT. Had a PICC line on the right arm -Ultrasound right arm, results noted -PICC line has been discontinued -Unable to start any anticoagulation due to brain bleed SCDs for DVT prophylaxis, avoid anticoagulation Fall precautions Keep NPO, high risk for aspiration Patient continues to decline, neuro status remains for the most part obtunded. Occasionally wakes up and response Overall prognosis poor DNR status Appreciate palliative care input-family is waiting for a brother to arrive today and have agreed to transfer to hospice after family has arrived. Possible discharge to care center either today or tomorrow. D/W RN D/W Dr. Greenwood This patient was seen by myself and Dr. Greenwood, this note is written on his behalf Problem Qualifiers (1) Fall: Qualified Codes: W19.XXXA - Unspecified fall, initial encounter (2) Facial laceration: Qualified Codes: S01.81XA - Laceration without foreign body of other part of head, initial encounter (3) Fracture of orbital wall: Qualified Codes: S02.80XA - Fracture of other specified skull and facial bones , unspecified side, initial encounter for closed fracture (4) Diabetes: Qualified Codes: E11.8 - Type 2 diabetes mellitus with unspecified complications (5) BPH (benign prostatic hyperplasia): (6) Peripheral neuropathy: Qualified Codes: G62.9 - Polyneuropathy, unspecified (7) Hyperlipidemia: Qualified Codes: E78.5 - Hyperlipidemia, unspecified (8) Hypertension: Qualified Codes: I10 - Essential (primary) hypertension (9) Urinary tract infection: Qualified Codes: T83.511D - Infection and inflammatory reaction due to indwelling urethral catheter, subsequent encounter; N39.0 - Urinary tract infection, site not specified Joan Martinez Dec 05, 2016 10:40
[2016-12-05 10:55] LABS: BICARBONATE 29.8 MEQ/L (21.0-32.0); POTASSIUM 4.3 MEQ/L (3.5-5.1)
[2016-12-05 12:00] VITALS: BP 101/48; PULSE 103; RESP 22; TEMP 99.1; O2SAT 95
[2016-12-05 15:51] VITALS: PULSE 98
[2016-12-05] MEDS ORDERED: LEVE500S PO (16:01)
--- NOTE | 2016-12-05 16:01 | HHI.DCPOC ---
Discharge Care Plan Diagnosis: (1) Subdural hematoma, acute (2) Fracture of orbital wall (3) Fall (4) Urinary tract infection (5) Chronic indwelling Anaya catheter (6) Confusion (7) Debility (8) Altered mental status, unspecified (9) Decrease in appetite (10) UTI (11) Seizure cerebral (12) Acute encephalopathy Your Health Problems Are: Difficulty with ADL Goals to Promote Your Health * To prevent worsening of your condition and complications * To maintain your health at the optimal level Directions to Meet Your Goals Take your medications as prescribed Follow your dietary instruction Follow activity as directed Keep your appointments as scheduled Take your immunizations and boosters as scheduled If your symptoms worsen call your PCP, if no PCP go to Urgent Care Center or Emergency Room Smoking is Dangerous to Your Health. Avoid second hand smoke Call the 24-hour hour crisis hotline for domestic abuse at Joan Martinez [facility] Dec 05, 2016 16:01
--- NOTE | 2016-12-05 16:13 | HHI.DS ---
Discharge Summary Admission Date Nov 18, 2016 at 09:57 Discharge Date: Dec 05, 2016 Admitting Diagnosis Subdural hematoma (1) Fall ICD Codes: W19.XXXA - Unspecified fall, initial encounter Status: Acute (2) Facial laceration ICD Codes: S01.81XA - Laceration without foreign body of other part of head, initial encounter Status: Acute (3) Subdural hematoma, acute ICD Codes: I62.01 - Nontraumatic acute subdural hemorrhage Status: Acute (4) Fracture of orbital wall ICD Codes: S02.80XA - Fracture of other specified skull and facial bones, unspecified side, initial encounter for closed fracture Status: Acute (5) Tachycardia ICD Codes: R00.0 - Tachycardia, unspecified Status: Acute (6) Frequent falls ICD Codes: R29.6 - Recurrent falls Status: Chronic (7) Ataxia ICD Codes: R27.0 - Ataxia Status: Acute (8) NPH (normal pressure hydrocephalus) ICD Codes: G91.2 - Normal pressure hydrocephalus Status: Chronic (9) Diabetes ICD Codes: E11.9 - Diabetes mellitus Status: Chronic (10) BPH (benign prostatic hyperplasia) ICD Codes: N40.0 - Benign prostatic hyperplasia Status: Chronic (11) Peripheral neuropathy ICD Codes: G62.9 - Peripheral neuropathy Status: Chronic (12) Hyperlipidemia ICD Codes: E78.5 - Hyperlipidemia Status: Chronic (13) Hypertension ICD Codes: I10 - Hypertension Status: Chronic (14) S/P TOOLMAKER shunt ICD Codes: Z98.2 - Status post ventriculoperitoneal shunt Status: Resolved (15) Chronic indwelling Anaya catheter ICD Codes: Z92.89 - Personal history of other medical treatment Status: Chronic (16) Urinary tract infection ICD Codes: N39.0 - Urinary tract infection, site not specified Status: Acute (17) Impaired cognition ICD Codes: R41.89 - Impaired cognition Status: Chronic (18) DVT of right axillary vein, acute ICD Codes: I82.A11 - Acute embolism and thrombosis of right axillary vein (19) Sepsis ICD Codes: A41.9 - Sepsis Status: Acute (20) Seizure cerebral ICD Codes: I67.89 - Other cerebrovascular disease Status: Acute (21) Altered mental status, unspecified ICD Codes: R41.82 - Altered mental status, unspecified Status: Acute Brief History This is a pleasant 81-year-old elderly male with significant past medical history of hypertension, hyperlipidemia, NPH has BP shunt, chronic indwelling catheter, recurrent UTIs, prior admissions for sepsis, MRSA and ESBL infection, early dementia. She presented to the emergency room after he had a fall this morning at a rehabilitation facility. Patient is unable to provide any information, is at bedside providing some details. The rest of the information is obtained from the medical record. Apparently the patient was found on the floor, he was noted with slurred speech and facial droop. According to the , he is usually very good about not getting out of bed however he was actually here in the emergency room on November 13 after he had a fall. At the time he was evaluated and discharge back to the rehabilitation facility. endorses that patient is mostly wheelchair bound and can only ambulate with assistance. He has been at the rehabilitation facility for most of the year because of physical debility, hydrocephalus and a TOOLMAKER shunt. According to the , he has been complaining of back pain and was supposed to have an MRI of the back. He was also supposed to have his TOOLMAKER shunt reprogrammed after having an MRI. endorses that he was unable to make it to get his MRI done. He has been somewhat anxious about this. He has a chronic indwelling catheter. EMS was called, patient was evaluated. Patient was found with a laceration to his left forehead. He's not on any anticoagulation. Patient was pleasantly confused and there were no focal deficits noted, he was conversant. Apparently there was no loss of consciousness. Blood sugar was 163. In the emergency room, patient was evaluated. Laceration was closed with benzoin tincture and Steri-Strips. Laboratory workup was completed. Maxillofacial CT show external conal air within the left orbit with periorbital soft tissue swelling. There is a possibility of orbital fracture without entrapment. Head CT show thin parafalcine subdural hematoma. Cervical spine CT no fracture or dislocation, degenerative changes, calcified plaque involving the carotid arteries. CBC remarkable for leukocytosis, WBC 17.9. Urinalysis positive for WBC in clumps and leukocyte esterase. BMP remarkable for mild hyponatremia, sodium 134, glucose 171. Troponin was negative. Patient had a UA done during ED visit that grew Enterobacter cloacae and Klebsiella oxytoca ESBL positive- sensitive to imipenem. He was given Ertapenem. In the emergency room, patient had no slurring, slight left sided facial droop. Patient is edentulous, I do not observe any facial drooping. Neurosurgery was consulted and called by the emergency room physician. At this time, patient is evaluated in the presence of his . Patient is somewhat anxious, he is oriented to self, he is not engaging in much conversation. There is no focal deficits noted, he is following simple commands. wants to continue with full code and aggressive care. He's noted tachycardic, heart rate up to 130s. Patient is admitted for further evaluation and treatment. CBC/BMP: 12/05/16 1010 12/05/16 1010 Significant Findings Laboratory Tests Test 12/03/16 09:57 12/03/16 19:45 12/04/16 06:05 12/04/16 10:35 Random Glucose 182 MG/DL (74-106) 189 MG/DL (74-106) Calcium Level 8.0 MG/DL (8.5-10.1) Red Blood Count 4.34 MIL/MM3 (4.50-5.90) 4.10 MIL/MM3 (4.50-5.90) Hemoglobin 12.0 GM/DL (13.0-17.0) 11.1 GM/DL (13.0-17.0) Hematocrit 37.6 % (39.0-51.0) 34.8 % (39.0-51.0) Stool C. difficile Toxin (PCR) POSITIVE (NEGATIVE) Stl C. difficile Toxin Epiderm 027 PRESUMPTIVE POSITIVE White Blood Count 11.2 TH/MM3 (4.0-11.0) Test 12/05/16 10:10 White Blood Count 12.0 TH/MM3 (4.0-11.0) Red Blood Count 4.15 MIL/MM3 (4.50-5.90) Hemoglobin 11.7 GM/DL (13.0-17.0) Hematocrit 35.5 % (39.0-51.0) Random Glucose 210 MG/DL (74-106) Calcium Level 8.0 MG/DL (8.5-10.1) Estimat Glomerular Filtration Rate 80 ML/MIN (>89) Phenytoin (Dilantin) Level 20.5 MCG/ML (10.0-20.0) Imaging Last Impressions Upper Extremity Ultrasound 12/03/16 0000 Signed Impressions: Service Date/Time: Saturday, December 03, 2016 14:50 - CONCLUSION: Right axillary DVT Rick Ellington MD Neck CTA 11/26/16307 Signed Impressions: Service Date/Time: Saturday, November 26, 2016 03:33 - CONCLUSION: 1. Calcified plaque in the origin of the internal carotid arteries bilaterally with resultant 45-50%% stenosis on the right and 20%% stenosis on the left. 2. Patent bilateral vertebral arteries. 3. Moderate to large left pleural effusion. 4. 2.2 cm right thyroid nodule. Selvin Bernstein MD Head CTA 11/26/16307 Signed Impressions: Service Date/Time: Saturday, November 26, 2016 03:33 - CONCLUSION: 1. Unremarkable CTA examination without evidence for intracranial large vessel occlusion or stenosis. Selvin Bernstein MD Head CT 11/26/16 0000 Signed Impressions: Service Date/Time: Saturday, November 26, 2016 03:27 - CONCLUSION: 1. 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 2. Stable right TOOLMAKER shunt catheter with stable ventricular size and small amount of intraventricular blood products. 3. Otherwise, no significant interval change. Selvin Bernstein MD Chest X-Ray 11/26/16 Signed Impressions: Service Date/Time: Saturday, November 26, 2016 13:20 - CONCLUSION: Interval development of bilateral mixed interstitial and alveolar process could represent pulmonary edema. Melissa Parker MD Maxillofacial CT 11/18/1637 Signed Impressions: Service Date/Time: October 07:44 - CONCLUSION: 1. There is extraconal air within the left orbit with periorbital soft tissue swelling. I' m not clearly able to see a fracture on this study that is slightly limited by motion artifact but I suspect there is an orbital floor fracture without entrapment. Karsten Bledsoe Jr., MD Cervical Spine CT 11/18/16 0737 Signed Impressions: Service Date/Time: October 07:44 - CONCLUSION: 1. No fracture or dislocation. 2. Degenerative changes. 3. Calcified plaque involving the carotid arteries. Karsten Bledsoe Jr., MD Hospital Course This is a pleasant 81-year-old elderly male with significant past medical history of hypertension, hyperlipidemia, NPH has BP shunt, chronic indwelling catheter, recurrent UTIs, prior admissions for sepsis, MRSA and ESBL infection, early dementia. She presented to the emergency room after he had a fall this morning at a rehabilitation facility. Patient is unable to provide any information, was at bedside providing some details. The rest of the information was obtained from the medical record. Apparently the patient was found on the floor, he was noted with slurred speech and facial droop. According to the , he is usually very good about not getting out of bed however he was actually here in the emergency room on November 13 after he had a fall. At the time he was evaluated and discharge back to the rehabilitation facility. endorsed that patient is mostly wheelchair bound and can only ambulate with assistance. He has been at the rehabilitation facility for most of the year because of physical debility, hydrocephalus and a TOOLMAKER shunt. According to the , he has been complaining of back pain and was supposed to have an MRI of the back. He was also supposed to have his TOOLMAKER shunt reprogrammed after having an MRI. endorsed that he was unable to make it to get his MRI done. He has been somewhat anxious about this. He has a chronic indwelling catheter. EMS was called, patient was evaluated. Patient was found with a laceration to his left forehead. He's not on any anticoagulation. Patient was pleasantly confused and there were no focal deficits noted, he was conversant. Apparently there was no loss of consciousness. Blood sugar was 163. In the emergency room, patient was evaluated. Laceration was closed with benzoin tincture and Steri-Strips. Laboratory workup was completed. Maxillofacial CT show external conal air within the left orbit with periorbital soft tissue swelling. There is a possibility of orbital fracture without entrapment. Head CT show thin parafalcine subdural hematoma. Cervical spine CT no fracture or dislocation, degenerative changes, calcified plaque involving the carotid arteries. CBC remarkable for leukocytosis, WBC 17.9. Urinalysis positive for WBC in clumps and leukocyte esterase. BMP remarkable for mild hyponatremia, sodium 134, glucose 171. Troponin was negative. Patient had a UA done during ED visit that grew Enterobacter cloacae and Klebsiella oxytoca ESBL positive- sensitive to imipenem. He was given Ertapenem. In the emergency room, patient had no slurring, slight left sided facial droop. Patient is edentulous, no facial drooping noted on admission. Neurosurgery was consulted and called by the emergency room physician. Patient was somewhat anxious, he was oriented to self, he was not engaging in much conversation. There were no focal deficits noted, he was following simple commands. wanted to continue with full code and aggressive care. He was noted tachycardic, heart rate up to 130s. Patient was admitted for further evaluation and treatment. During the course of the hospitalization, the following took place: 81-year-old elderly male with history of NPH has TOOLMAKER shunt, recurrent falls, dementia, peripheral neuropathy, physical debility, recurrent UTIs and sepsis. Subdural hematoma, status post fall Left forehead laceration Left orbital floor fracture without entrapment per CT finding -Neurosurgery input appreciated, non surgical management recommended -Continue neuro checks -Fall precautions -Avoided any anticoagulation -appreciate Dr. Shah's input-recommended adjusting TOOLMAKER shunt, to 200. This was done -Mental status did not improve, patient remained lethargic for the most part. He didn't have a seizure. New onset seizure, likely sec. to SDH. Marissa called, witnessed seizure per staff Was transferred to [facility] [place] -appreciated neurology input -He had repeated imaging studies with results as noted above. -EEG done, no active seizures -Was started on Cerebyx and Keppra -Ativan PRN ordered -Did not have anymore seizures, however his mental status continued to decline and he remained mostly obtunded. Sepsis, had new fever, tachy, WBC elevated. ? asp PNA. Recurrent UTI, chronic indwelling catheter. Urine culture positive for Enterobacter cloacae, Klebsiella oxytoca ESBL positive. -ID input appreciated -Aanya catheter was changed in the emergency room -UC positive for Klebsiella oxytoca ESBL positive. Continued with ertapenem, recommended for 2 weeks by IV. Initially had a PICC line placed. -Blood cultures remained negative -Prior to seizure, he was noted with new fever. Chest x-ray with findings for interval development of mixed interstitial alveolar process, possibly pulmonary edema. Patient with possible aspiration pneumonia. Was continued on antibiotics per -Ordered DuoNeb's and supplemental oxygen -Patient continued to have intermittent fevers, blood cultures were ordered and follow. ID continued to follow. He did have some episodes of leukocytosis that trended down. Type 2 diabetes Accu-Cheks before meals and at bedtime with insulin therapy -Blood glucose remains stable, he was started on tube feedings Hypertension, stable -continued home medications Hyperlipidemia Continued with home medications Malnourished Dysphagia -Speech and swallow evaluations were conducted. Patient failed swallow eval -Patient was at risk for aspiration, NG tube was inserted for medications and feeding -Patient tolerated 2 feedings relatively well -Patient's did not want PEG tube insertion. Right arm swelling, positive for axillary DVT. Had a PICC line on the right arm -Ultrasound right arm was done showing DVT to axillary vein., -PICC line was discontinued -Unable to start any anticoagulation due to brain bleed Patient continued to decline, neuro status remained for the most part obtunded. Occasionally woke up and responded Hospitalization complicated by fever, possible aspiration pneumonia and sepsis. He also developed seizures. Palliative care was consulted to assist patient's and the rest of the family with clarifying goals of care. Overall prognosis poor He was made DNR but was reluctant to transition to comfort care Palliative care continued to work with patient and family. As the patient's condition continued to decline, decided to transition to comfort care Hospice was consulted Patient was transferred to hospice care center Pt Condition on Discharge: Deteriorating Discharge Disposition: Hospice/Med Facility Discharge Instructions DIET: Follow Instructions for: On Tube Feeding Activities you can perform: Weight Bearing as Chu Follow up Referrals: PCP Follow-up New Medications: Levetiracetam Liq (Keppra Liq) 500 Mg/5 Ml Soln 500 MG PO BID for Control Seizures, #300 ML 0 Refills Continued Medications: Acetaminophen (Tylenol) 325 Mg Tab 650 MG PO Q4H PRN for FEVER, TAB 0 Refills Glimepiride (Glimepiride) 1 Mg Tab 1 MG PO DAILY for Blood Sugar Management, #30 TAB 0 Refills Take with breakfast or first main meal Lisinopril (Lisinopril) 2.5 Mg Tab 2.5 MG PO DAILY, #30 TAB 0 Refills Metoclopramide (Reglan) 10 Mg Tab 5 MG PO TIDAC, TAB 0 Refills Metoprolol Tartrate (Metoprolol Tartrate) 25 Mg Tab 6.25 MG PO BID, #60 TAB 0 Refills Ondansetron Odt (Zofran Odt) 4 Mg Tab 4 MG SL Q12HR PRN for Nausea/Vomiting, #30 TAB 0 Refills Promethazine Supp (Phenergan Supp) 25 Mg Supp 25 MG RECTAL Q6H PRN for NAUSEA OR VOMITING, SUPP 0 Refills Discontinued Medications: Docusate Sodium (Colace) 100 Mg Capsule 1 CAP PO BID Magnesium Oxide (Magnesium Oxide) 400 Mg Tab 400 MG PO DAILY for Nutritional Supplement, TAB 0 Refills Polyethylene Glycol 3350 (Miralax) 17 Gm Powd.pack 1 PACK PO HS Ranitidine (Zantac) 150 Mg Tab 150 MG PO DAILY for Reduce Stomach Acid, #30 TAB 0 Refills Simvastatin (Zocor) 10 Mg Tab 10 MG PO DAILY for Cholesterol Management, #30 TAB 0 Refills Venlafaxine ER 24 HR (Venlafaxine ER 24 HR) 75 Mg Tab 150 MG PO DAILY, #30 TAB 0 Refills Joan Martinez Dec 05, 2016 16:13
[2016-12-05] MEDS: ERTAPENEM INJ 1,000 MG in SODIUM CHLORIDE 0.9% INJ 100 ML IV SCH (17:00)
== END 2016-12-05 17:38 | disposition hospice, inpatient (51) | DRG 85 ==
LOC: NEPC 07:27 → NEDA 09:57 → N05B 13:06 → HIMW 11-26 03:48 → N05B 12-02 18:12
PROVIDERS: ADMIT Specialist; ATTEND Specialist
PROC: 0T9B70Z Drainage of Bladder with Drainage Device, Via Natural or Artificial Opening (ICD-10-PCS; principal; 2016-11-18)
PROC: 0HQ1XZZ Repair Face Skin, External Approach (ICD-10-PCS; 2016-11-18)
DX: S06.5X0A Traumatic subdural hemorrhage without loss of consciousness, initial encounter (principal); A41.9 Sepsis, unspecified organism; J69.0 Pneumonitis due to inhalation of food and vomit; N17.9 Acute kidney failure, unspecified; E46 Unspecified protein-calorie malnutrition; A04.7 Enterocolitis due to Clostridium difficile; E11.65 Type 2 diabetes mellitus with hyperglycemia; I47.1 Supraventricular tachycardia; G91.2 (Idiopathic) normal pressure hydrocephalus; E87.1 Hypo-osmolality and hyponatremia; I82.A11 Acute embolism and thrombosis of right axillary vein; N39.0 Urinary tract infection, site not specified; T83.511A Infection and inflammatory reaction due to indwelling urethral catheter, initial encounter; R13.10 Dysphagia, unspecified; F03.90 Unspecified dementia, unspecified severity, without behavioral disturbance, psychotic disturbance, mood disturbance, and anxiety; J44.9 Chronic obstructive pulmonary disease, unspecified; Z98.2 Presence of cerebrospinal fluid drainage device; W06.XXXA Fall from bed, initial encounter; Y93.89 Activity, other specified; Y92.122 Bedroom in nursing home as the place of occurrence of the external cause; K21.0 Gastro-esophageal reflux disease with esophagitis; S01.81XA Laceration without foreign body of other part of head, initial encounter; F32.9 Major depressive disorder, single episode, unspecified; E78.00 Pure hypercholesterolemia, unspecified; I10 Essential (primary) hypertension; Z51.5 Encounter for palliative care; Z66 Do not resuscitate; S02.80XA Fracture of other specified skull and facial bones, unspecified side, initial encounter for closed fracture; S02.32XA Fracture of orbital floor, left side, initial encounter for closed fracture; Z87.442 Personal history of urinary calculi; Z87.891 Personal history of nicotine dependence; G47.00 Insomnia, unspecified; Z86.14 Personal history of Methicillin resistant Staphylococcus aureus infection; R29.810 Facial weakness; Z99.3 Dependence on wheelchair; R29.6 Repeated falls; R27.0 Ataxia, unspecified; G62.9 Polyneuropathy, unspecified; Z87.440 Personal history of urinary (tract) infections; Y73.1 Therapeutic (nonsurgical) and rehabilitative gastroenterology and urology devices associated with adverse incidents; R47.1 Dysarthria and anarthria; R56.9 Unspecified convulsions; R33.8 Other retention of urine; N40.1 Benign prostatic hyperplasia with lower urinary tract symptoms; K40.90 Unilateral inguinal hernia, without obstruction or gangrene, not specified as recurrent; M79.89 Other specified soft tissue disorders; E04.1 Nontoxic single thyroid nodule; B96.1 Klebsiella pneumoniae [K. pneumoniae] as the cause of diseases classified elsewhere; D64.9 Anemia, unspecified
CPT/HCPCS: 36569; 36600; 51702; 70450; 70486; 70496; 70498; 71010; 72125; 76937; 80048; 80053; 80185; 81001; 82040; 82140; 82435; 82550; 82565; 82607; 82805; 82947; 82948; 83735; 83880; 84100; 84132; 84155; 84295; 84443; 84484; 84520; 85025; 85027; 85610; 85652; 85730; 87040; 87077; 87086; 87186; 87493; 87641; 93005; 93971; 94640; 94664; 95819; J1165; J1335; J1815; J1953; J2060; J2185; J3370; J3480; J7030; J7050; Q2009; Q9967